=== PATIENT | female | born 1955 | race Caucasian/White ===

== ENCOUNTER 2022-07-11 21:37 | Emergency (ER) | payer MEDICARE, OTHER, SELFPAY ==
[2022-07-11 21:38] VITALS: BP 148/72; PULSE 87; RESP 16; TEMP 36.8; O2SAT 97; BMI 32.3
--- NOTE | 2022-07-11 22:11 | ED.VIS.GI ---
HPI HPI - GI History of Present Illness Chief Complaint: Nausea/Vomiting Informant: patient Abdominal Pain/Flank Pain Onset: Today Context: Sudden Onset Timing: Intermittent Location: RLQ and LLQ Worsened by: Food (Drinking liquids) Relieved by: Nothing Nausea/Vomiting/Emesis GI Symptom: Positive for Nausea and Vomiting Onset: Today Quality: Positive for Nonbilious; Negative for Blood streaks, Coffee ground or Hematemesis Diarrhea/Melena/Hematochezia GI Symptom: Positive for Diarrhea; Negative for Melena or Hematochezia Onset: Today Associated Symptoms Associated Symptoms: Negative for Dysuria, Frequency or Hematuria Narrative Narrative: Patient presents with pain, nausea, vomiting, and diarrhea that began today. Patient states it began rather suddenly. Patient states she took 1 oxycodone tablet and a Tylenol tablet. Patient states that soon after that she started having nausea, vomiting, diarrhea. Patient states she has had lower abdominal cramping with this as well. Patient stated thing. Patient states her pain is cramping and is intermittent. Patient denies any hematemesis or coffee-ground emesis. Patient denies any melena or hematochezia. Patient denies any dysuria or hematuria. Patient had a right total hip replacement 2 days ago. Patient was discharged from the hospital yesterday. Patient states she was walking without difficulty today. Patient denies any fevers. [facility] Medical History (Updated 07/12/22 @ 01:[address] Chencho Escalona, ) Hypertension Home Medications acetaminophen 500 mg tablet 100 mg PO TID 07/12/22 [History Last Taken Unknown] amlodipine 5 mg tablet 5 mg PO DAILY 07/12/22 [History Last Taken Unknown] aspirin 81 mg tablet,delayed release 81 mg PO BID 07/12/22 [History Last Taken Unknown] chlorthalidone 25 mg tablet 25 mg PO DAILY 07/12/22 [History Last Taken Unknown] ciprofloxacin HCl 500 mg tablet 500 mg PO BID #20 TABLETS 07/12/22 [Rx Last Taken Unknown] lisinopril 20 mg tablet 20 mg PO BID 07/12/22 [History Last Taken Unknown] meloxicam 7.5 mg tablet 7.5 mg PO BID 07/12/22 [History Last Taken Unknown] metoprolol succinate 50 mg tablet,extended release 24 hr 50 mg PO BID 07/12/22 [History Last Taken Unknown] metronidazole 500 mg tablet 500 mg PO Q6H #40 tabs 07/12/22 [Rx Last Taken Unknown] oxycodone 5 mg tablet 5 mg PO Q4H PRN PRN Pain 07/12/22 [History Last Taken Unknown] Allergy/AdvReac Type Severity Reaction Status Date / Time No Known Allergies Allergy Verified 07/11/22 21:41 Surgical History Hx of arthroscopic knee surgery Status post total hip replacement, right Social History Smoking Status: Never smoker ROS ROS ED Constitutional Constitutional ED: Denies chills or fever(s) Eyes Eyes: Denies blurry vision or change in vision ENT ENT ED: Denies rhinorrhea or sore throat Cardiovascular Cardiovascular: Denies chest pain or palpitations Respiratory/Chest Respiratory/Chest: Denies cough or dyspnea Gastrointestinal Gastrointestinal: Reports abdominal pain, diarrhea, nausea and vomiting Genitourinary Genitourinary ED: Denies dysuria or hematuria Musculoskeletal Musculoskeletal: Denies back pain or neck pain Integumentary Denies abscess or rash Neurologic Neurologic: Denies headache(s) or weakness Allergic/Immunologic Allergic/Immunologic ED: Denies mouth swelling or urticaria EXAM Physical Exam Const Vital Signs: 07/11/22 21:38 07/12/22 00:04 Temperature 98.2 F Temperature Source Temporal Pulse Rate 87 Respiratory Rate 16 15 Blood Pressure 148/72 H Blood Pressure Mean 97 Pulse Ox 97 Oxygen Delivery Method Room Air Room Air Positive well nourished, well developed and obese General Appearance ED: well developed Nutritional Appearance: obese HEENT Reports moist mucous membranes Neck supple and no JVD Resp normal respiratory effort and clear to auscultation bilaterally Cardio regular rate, regular rhythm and no murmurs GI normal to inspection, nondistended, normoactive bowel sounds Palpation: soft and tender LLQ, RLQ and suprapubic; Negative for guarding or rebound tenderness present Extremity normal to inspection General Extremety ED: Negative for edema or tenderness General Extremity: Negative for edema Neuro oriented x3, CN's II-XII intact bilaterally and no sensory deficits noted Sensorium / Orientation: alert Motor Exam: strength 5/5 throughout Psych mental status grossly normal Skin no rashes or lesions noted MDM MDM MDM Narrative Medical decision making narrative: Patient was given IV fluids and Zofran here. CBC shows a leukocytosis of 19.2. Comprehensive metabolic profile showed a slightly elevated total bilirubin of 1.2. Alkaline phosphatase was slightly elevated at 181. AST and ALT were slightly elevated at 53 and 73. Lipase was normal. Urinalysis does not show any evidence of urinary tract infection or hematuria. Because of the leukocytosis, CT of the abdomen and pelvis was obtained. There is thickening of the chris of the transverse, descending, and sigmoid colon consistent with colitis. This was interpreted by the radiologist and reviewed by myself. Patient was given a dose of Cipro and Flagyl here. Patient was given prescriptions for Cipro and Flagyl. Patient was instructed to follow-up with her primary care physician in 5 to 7 days. Patient understood and was agreeable with the plan. All questions were answered. Lab Data Labs: Laboratory Results - last 24 hr 07/11/22 07/11/22 07/11/22 22:00 22:00 23:57 WBC 19.2 H RBC 4.60 Hgb 13.7 Hct 40.4 MCV 87.8 MCH 29.8 MCHC 33.9 RDW Std Deviation 40.9 RDW Coeff of Sylvain 12.8 Plt Count 283 MPV 11.2 Immature Gran % (Auto) 0.600 Neut % (Auto) 82.2 H Lymph % (Auto) 8.4 L [place] % (Auto) 8.3 Eos % (Auto) 0.2 Baso % (Auto) 0.3 Absolute Neuts (auto) 15.8 H Absolute Lymphs (auto) 1.61 Nucleated RBC % 0 Differential Comment SEE COMMENT Diff Path Review May foll Platelet Estimate ADEQUATE RBC Morphology N CHROM Anisocytosis RARE Sodium 136 Potassium 4.0 Chloride 98 Carbon Dioxide 28.0 Anion Gap 10 BUN 24 H Creatinine 0.96 Estim Creat Clear Calc 52.51 Est GFR (MDRD) Af Amer 74 Est GFR (MDRD) Non-Af 61 BUN/Creatinine Ratio 25.0 H Glucose 180 H Calcium 9.7 Total Bilirubin 1.20 H AST 53 H ALT 73 H Alkaline Phosphatase 181 H Total Protein 7.3 Albumin 3.4 Globulin 3.9 Albumin/Globulin Ratio 0.9 Lipase 65 L Urine Color Yellow Urine Clarity Clear Urine pH 6.5 Ur Specific [place] 1.010 Urine Protein 15 H Urine Glucose (UA) Normal Urine Ketones 50 H Urine Occult Blood Negative Urine Nitrite Negative Urine Bilirubin Negative Urine Urobilinogen 1 H Ur Leukocyte Esterase 100 H Urine RBC 0 SEEN Urine WBC 0-5 SEEN Ur Squamous Epith Cells 0 SEEN Ur Renal Epithelial Cell 0-5 SEEN Urine Bacteria 0 SEEN Urine Mucus 0 SEEN Radiography Diagnostic Testing: Clinical Impression(s) from Imaging Studies Abdomen/Pelvis CT 07/12/22 22:39 IMPRESSION: There is a nonobstructive stone in the left kidney measures 3 mm. There is thickening of the chris of the transverse, descending colon and sigmoid colon consistent with colitis. There is a small, circumscribed, smooth, low attenuation right adrenal mass, consistent with an adrenal adenoma. Normal left adrenal gland. Electronically Signed: Zoila Celaya MD at 0:51 EDT , Discharge Plan Triage Chief Complaint: Nausea/Vomiting ED Provider: Chencho Escalona Dx/Rx/DC Orders Clinical Impression: Colitis, Abdominal pain Instructions: ED Understanding Colitis Prescriptions: New metronidazole [metronidazole] 500 mg tablet 500 mg PO Q6H Qty: 40 0RF ciprofloxacin HCl [ciprofloxacin HCl] 500 mg tablet 500 mg PO BID Qty: 20 0RF No Action metoprolol succinate 50 mg tablet extended release 24 hr 50 mg PO BID lisinopril 20 mg tablet 20 mg PO BID Label Comments: TAKE 1 TABLET BY MOUTH IN THE MORNING and ONE TABLET IN THE EVENING chlorthalidone 25 mg tablet 25 mg PO DAILY Label Comments: TAKE 1 TABLET BY MOUTH DAILY amlodipine 5 mg tablet 5 mg PO DAILY Label Comments: TAKE 1 TABLET BY MOUTH TWICE DAILY acetaminophen 500 mg tablet 100 mg PO TID Label Comments: TAKE 2 TABLETS BY MOUTH THREE TIMES DAILY NEEDED FOR PAIN. max 6 (SIX) tabs (3,000mg/day) oxycodone 5 mg tablet 5 mg PO Q4H PRN PRN (Reason: Pain) Label Comments: TAKE 1 TO 2 TABLETS BY MOUTH every 4 hours NEEDED FOR PAIN meloxicam 7.5 mg tablet 7.5 mg PO BID Label Comments: Take 1 tablet by mouth twice daily. Do not take any other nonsteroidal anti-inflammatories while on meloxicam/Mobic aspirin [Aspir-81] 81 mg Tablet,Delayed Release (Dr/Ec) 81 mg PO BID Primary Care Provider: DAVON MULLEN Referrals: DAVON MULLEN [Other] - 5-7 Days Disposition Disposition: Home, Self Care
[2022-07-11] MEDS: Ondansetron 4 MG/2 ML Vial IV ×2 (22:23→23:17)
[2022-07-11] MEDS: 0.9% Normal Saline 1,000 ML 1000 ML IV (22:23)
[2022-07-11 22:31] LABS: Absolute Lymphocyte Count 1.61 X10^3/uL (0.83-4.51); Absolute Neutrophil Count 15.8 X10^3/uL (2.0-7.7); Basophil# 0.05 X10^3/uL; Basophil% 0.3 % (0-1); Eosinophil# 0.04 X10^3/uL; Eosinophils% 0.2 % (0-5); Hematocrit 40.4 % (37-47); Hemoglobin 13.7 g/dL (12.0-15.0); Lymphocyte # 1.61 X10^3/ul (0.83-4.51); Lymphocyte % 8.4 % (19-41); Mean Corp Hgb Conc 33.9 g/dL (32-36); Mean Corpuscular Hgb 29.8 pg (27.0-32.0); Mean Corpuscular Volume 87.8 fL (81-99); Mean Platelet Vol. 11.2 fl (6.2-12.0); Monocyte% 8.3 % (0-10); NRBC Flagged by Analyzer 0 % (0-5); Neutrophil # 15.82 X10^3/uL (2.7-7.7); Neutrophil % 82.2 % (47-70); POSITIVE DIFFERENTIAL YES; Platelet Count 283 K/mm3 (150-450); RBC Distribution Width CV 12.8 % (11.6-14.6); RBC Distribution Width SD 40.9 fl (35.1-43.9); White Blood Count 19.2 K/mm3 (4.4-11.0)
[2022-07-11 22:32] LABS: Differential Indicated SCAN CRITERIA MET
[2022-07-11 22:47] LABS: ALB/GLOB Ratio 0.9 RATIO (0.9-2.4); AST(SGOT) 53 U/L (15-37); Alanine Aminotransfer ALT/SGPT 73 U/L (13-56); Albumin, Serum 3.4 g/dL (3.2-5.0); Alkaline Phosphatase 181 U/L (45-117); Anion Gap 10 (5-15); BUN 24 mg/dL (7-18); Calcium,Total 9.7 mg/dL (8.5-10.1); Chloride 98 mmol/L (98-107); Creatinine, Serum 0.96 mg/dL (0.55-1.02); EST Glomerular Filtration Rate 61 mL/min (>60); Est Glom Filt Rate - Afr Amer 74 mL/min (>60); Estimated Creatinine Clearance 52.51 ml/min; Globulin 3.9 g/dL (2.2-4.2); Glucose 180 mg/dL (74-106); Lipase 65 U/L (73-393); Protein, Total 7.3 g/dL (6.4-8.2); Sodium Level 136 mmol/L (136-145)
[2022-07-11 22:59] LABS: Anisocytosis RARE; Platelet Estimate ADEQUATE (ADEQ); Red Cell Morphology N CHROM NORMAL (NORM C&C)
[2022-07-12 00:04] VITALS: RESP 15
[2022-07-12 00:08] LABS: Bacteria 0 SEEN /hpf (None Seen); Mucous, Urine 0 SEEN /hpf (<or=2+); Red Blood Cells-Urine 0 SEEN /hpf (0-5); Squamous Epithelial Cells - UA 0 SEEN /hpf (5-10)
[2022-07-12 00:13] LABS: Color, Urine Yellow (Yellow); Glucose, Dipstick Normal (Normal); Ketone-Dipstick 50 mg/dl (Negative); Leukocyte Esterase-Dipstick 100 /ul (Negative); Nitrite-Dipstick Negative (Negative); Occult Blood-Urine Negative /ul (Negative); Protein-Dipstick 15 mg/dl (Negative); Urine Bilirubin Dipstick Negative (Negative); Urine Clarity Clear (Clear); Urine Urobilinogen 1 mg/dl (Normal); Urine pH 6.5 (5.0 - 8.0)
[2022-07-12 00:14] LABS: Renal Epithelial Cells 0-5 SEEN /hpf (0-5); White Blood Cells 0-5 SEEN /hpf (0-5)
[2022-07-12] MEDS: Ciprofloxacin 500 MG Tablet PO (01:26)
[2022-07-12] MEDS: metroNIDAZOLE 500 MG Tablet PO (01:26)
[2022-07-12 01:31] VITALS: BP 138/71; PULSE 80; RESP 18; O2SAT 98
[2022-07-12 15:06] LABS: Pathologist Review Reviewed
--- NOTE | 2022-07-12 22:39 | CT_ITS ---
STUDY: CT ABDOMEN AND PELVIS WITH CONTRAST REASON FOR EXAM: Female, 66 years old. Abdominal pain -- IV PO Contrast RADIATION DOSAGE (If Supplied By Facility): CTDIvol = ( 17.55 ) mGy, DLP = ( 1057.39 ) mGycm TECHNIQUE: Transaxial images were obtained from the dome of the diaphragm to the symphysis pubis without oral contrast. Oral and amp; IV Gastrografin and amp; 100mL Isovue-300 was administered. Sagittal and coronal images were reconstructed. Individualized dose optimization techniques were used for this CT. COMPARISON: None. FINDINGS: The visualized lung bases are unremarkable. The visualized portions of the heart are within normal limits. Normal liver. Normal gallbladder and extrahepatic biliary system. Normal spleen. Normal pancreas. There is a small, circumscribed, smooth, low attenuation right adrenal mass, consistent with an adrenal adenoma. Normal left adrenal gland. There is a nonobstructive stone in the left kidney measures 3 mm. Normal left kidney. There is a small hiatal hernia. Normal small intestine. There is thickening of the chris of the transverse, descending colon and sigmoid colon consistent with colitis. The appendix is visualized and appears normal. Normal abdominal aorta. Normal inferior vena cava. Normal retroperitoneum. Normal urinary bladder. Air bubbles are seen in the subcutaneous soft tissues in the right groin likely due to recent surgery wall. Normal osseous structures. CT/Abdomen/Pelvis WITH Contrast IMPRESSION: There is a nonobstructive stone in the left kidney measures 3 mm. There is thickening of the chris of the transverse, descending colon and sigmoid colon consistent with colitis. There is a small, circumscribed, smooth, low attenuation right adrenal mass, consistent with an adrenal adenoma. Normal left adrenal gland. Electronically Signed: Zoila Celaya MD at 0:51 EDT ,
== END 2022-07-12 01:32 | disposition home or self-care (01) ==
PROVIDERS: Emergency Provider Emergency Medicine; Visit Provider Emergency Medicine
DX: K52.9 Noninfective gastroenteritis and colitis, unspecified (principal); R10.9 Unspecified abdominal pain; I10 Essential (primary) hypertension; R11.2 Nausea with vomiting, unspecified; E66.9 Obesity, unspecified; Z79.899 Other long term (current) drug therapy
CPT/HCPCS: 96361; 96376; 96374; 99284; 74177; 80053; 81001; 83690; 85025; J7030; Q9967; A4216; J2405

== ENCOUNTER 2022-07-12 16:13 | Inpatient (IN) | payer MEDICARE, OTHER, SELFPAY ==
[2022-07-12 16:14] VITALS: BP 161/74; PULSE 117; RESP 14; TEMP 36.4; O2SAT 16; BMI 33.3
--- NOTE | 2022-07-12 16:53 | NURSING ---
NO OLD EKGS
--- NOTE | 2022-07-12 17:05 | NURSING ---
NO OLD EKGS
--- NOTE | 2022-07-12 17:32 | EKG12_ITS ---
Test Reason : PALPS Blood Pressure : / mmHG Vent. Rate : 113 BPM Atrial Rate : 113 BPM P-R Int : 150 ms QRS Dur : 080 ms QT Int : 354 ms P-R-T Axes : 069 023 054 degrees QTc Int : 485 ms Sinus tachycardia Otherwise normal ECG Confirmed by LILY DUQUE, NATHANAEL ([id number]), editor house organ RAFAELA MOREL ([id number]) on 07/16/2022 9:00:12 AM Referred By: LUNA Confirmed By:ARA BAUTISTA MD
--- NOTE | 2022-07-12 17:34 | EDS_ITS ---
HPI History of Present Illness Chief Complaint: Palpitations Detail of Chief Complaint: Palpitations and vomiting Informant: patient Narrative Narrative: Patient had right hip replacement 2 days ago at [facility] with Dr. Leslie. Patient states yesterday afternoon she developed rather abrupt onset abdominal cramping with vomiting and diarrhea. She does have bloody stool. She was seen in the emergency room last evening and diagnosed with colitis. She was discharged with Cipro and Flagyl. Patient states that she continues to have vomiting as well as bloody diarrhea. She states when she is vomiting her heart is racing. She states her resting heart rate is usually in the 60s and today it has been over 100. She has not noted fever or chills. [facility] Medical History Hypertension Home Medications acetaminophen 500 mg tablet 100 mg PO TID 07/12/22 [History Last Taken Unknown] amlodipine 5 mg tablet 5 mg PO DAILY 07/12/22 [History Last Taken Unknown] aspirin 81 mg tablet,delayed release 81 mg PO BID 07/12/22 [History Last Taken Unknown] chlorthalidone 25 mg tablet 25 mg PO DAILY 07/12/22 [History Last Taken Unknown] ciprofloxacin HCl 500 mg tablet 500 mg PO BID #20 TABLETS 07/12/22 [Rx Last Taken Unknown] lisinopril 20 mg tablet 20 mg PO BID 07/12/22 [History Last Taken Unknown] meloxicam 7.5 mg tablet 7.5 mg PO BID 07/12/22 [History Last Taken Unknown] metoprolol succinate 50 mg tablet,extended release 24 hr 50 mg PO BID 07/12/22 [History Last Taken Unknown] metronidazole 500 mg tablet 500 mg PO Q6H #40 tabs 07/12/22 [Rx Last Taken Unknown] oxycodone 5 mg tablet 5 mg PO Q4H PRN PRN Pain 07/12/22 [History Last Taken Unk nown] Allergy/AdvReac Type Severity Reaction Status Date / Time No Known Allergies Allergy Verified 07/11/22 21:41 Surgical History Hx of arthroscopic knee surgery Status post total hip replacement, right Social History Smoking Status: Never smoker ROS ROS ED Constitutional Constitutional ED: Denies chills or fever(s) Eyes Eyes: Denies change in vision or discharge from eye(s) ENT ENT ED: Denies discharge from eye(s), rhinorrhea or sore throat Cardiovascular Cardiovascular: Reports palpitations and racing heartbeat; Denies chest pain Respiratory/Chest Respiratory/Chest: Denies cough or dyspnea Gastrointestinal Gastrointestinal: Reports abdominal pain, diarrhea, nausea and vomiting Genitourinary Genitourinary ED: Denies difficulty urinating or dysuria Musculoskeletal Musculoskeletal: Denies back pain or extremity pain Integumentary Denies Abrasions or rash Neurologic Neurologic: Denies headache(s) or weakness Endocrine Endocrinology: Denies polydipsia or polyuria Allergic/Immunologic Allergic/Immunologic ED: Denies lip swelling or urticaria EXAM Physical Exam Const Vital Signs: 07/12/22 16:14 07/12/22 18:14 Temperature 97.6 F L Temperature Source Temporal Pulse Rate 117 H 111 H Respiratory Rate 14 19 H Blood Pressure 161/74 H Blood Pressure Mean 103 Pulse Ox 16 93 Oxygen Delivery Method Room Air Room Air Positive well nourished and well developed General Appearance ED: well developed HEENT Reports normocephalic, head/scalp atraumatic and dry mucous membranes Mouth ED: Yes dry mucous membranes Mouth: dry mucous membranes Eyes PERRL and EOMs intact bilaterally Neck supple Chest Wall inspection of chest normal and palpation of chest normal Resp normal respiratory effort and clear to auscultation bilaterally Cardio regular rhythm Rate: tachycardic GI non-tender Auscultation: hypoactive bowel sounds Palpation: soft Extremity normal to inspection Neuro oriented x3 and no sensory deficits noted Sensorium / Orientation: alert Motor Exam: strength 5/5 throughout Psych mental status grossly normal Skin no rashes or lesions noted MDM MDM MDM Narrative Medical decision making narrative: Work-up from yesterday is reviewed. CT scan revealed pancolitis. White count was elevated at 19.2. Repeat labs ordered today. Patient given fluids and Zofran. EKG ordered. Lab Data Attestation: I reviewed the patient's lab results. Labs: Laboratory Results - last 24 hr 07/12/22 07/12/22 16:00 16:00 WBC 15.5 H RBC 4.28 Hgb 12.7 Hct 37.4 MCV 87.4 MCH 29.7 MCHC 34.0 RDW Std Deviation 40.8 RDW Coeff of Sylvain 13.0 Plt Count 237 MPV 11.1 Immature Gran % (Auto) 0.500 Neut % (Auto) 78.8 H Lymph % (Auto) 11.1 L [place] % (Auto) 9.1 Eos % (Auto) 0.3 Baso % (Auto) 0.2 Absolute Neuts (auto) 12.2 H Absolute Lymphs (auto) 1.71 Nucleated RBC % 0 Sodium 135 L Potassium 3.2 L Chloride 97 L Carbon Dioxide 28.0 Anion Gap 10 BUN 15 Creatinine 0.85 Estim Creat Clear Calc 59.30 Est GFR (MDRD) Af Amer 85 Est GFR (MDRD) Non-Af 71 BUN/Creatinine Ratio 17.6 Glucose 159 H Calcium 9.2 Total Bilirubin 1.60 H Direct Bilirubin 0.40 H AST 33 ALT 57 H Alkaline Phosphatase 145 H Total Protein 7.0 Albumin 3.2 Globulin 3.8 Treatment and Re-Evaluation Narrative: White count is slightly improved to 15.5 today. Chemistry studies real potassium 3.2. Glucose slightly elevated at 159. Total bili 1.6 and direct 0.4. Patient continued to have vomiting after Zofran. She is given IM Phenergan. Vomiting is well controlled at this time, however patient remains tachycardic around 112. IV potassium has been ordered. Patient has failed outpatient management and continues to have significant vomiting. I will speak with hospitalist regarding observation for hydration and control of vomiting. Discharge Plan Triage Chief Complaint: Palpitations Other Complaint: Nausea/Vomiting ED Provider: Britt Srivastava Dx/Rx/DC Orders Clinical Impression: Colitis, Vomiting, Hypokalemia Prescriptions: No Action metoprolol succinate 50 mg tablet extended release 24 hr 50 mg PO BID lisinopril 20 mg tablet 20 mg PO BID Label Comments: TAKE 1 TABLET BY MOUTH IN THE MORNING and ONE TABLET IN THE EVENING chlorthalidone 25 mg tablet 25 mg PO DAILY Label Comments: TAKE 1 TABLET BY MOUTH DAILY amlodipine 5 mg tablet 5 mg PO DAILY Label Comments: TAKE 1 TABLET BY MOUTH TWICE DAILY acetaminophen 500 mg tablet 100 mg PO TID Label Comments: TAKE 2 TABLETS BY MOUTH THREE TIMES DAILY NEEDED FOR PAIN. max 6 (SIX) tabs (3,000mg/day) oxycodone 5 mg tablet 5 mg PO Q4H PRN PRN (Reason: Pain) Label Comments: TAKE 1 TO 2 TABLETS BY MOUTH every 4 hours NEEDED FOR PAIN meloxicam 7.5 mg tablet 7.5 mg PO BID Label Comments: Take 1 tablet by mouth twice daily. Do not take any other nonsteroidal anti- inflammatories while on meloxicam/Mobic aspirin [Aspir-81] 81 mg Tablet,Delayed Release (Dr/Ec) 81 mg PO BID metronidazole [metronidazole] 500 mg tablet 500 mg PO Q6H Qty: 40 0RF ciprofloxacin HCl [ciprofloxacin HCl] 500 mg tablet 500 mg PO BID Qty: 20 0RF Primary Care Provider: Care Physician,No Primary Referrals: NOT,DEFINED [Non-Staff] - Disposition Disposition: Acute Care Hospital [facility]
[2022-07-12] MEDS: 0.9% Normal Saline 1,000 ML 1000 ML IV (17:44)
[2022-07-12] MEDS: Ondansetron 4 MG/2 ML Vial IV (17:44)
[2022-07-12 17:54] LABS: Absolute Lymphocyte Count 1.71 X10^3/uL (0.83-4.51); Absolute Neutrophil Count 12.2 X10^3/uL (2.0-7.7); Basophil# 0.03 X10^3/uL; Basophil% 0.2 % (0-1); Eosinophil# 0.05 X10^3/uL; Eosinophils% 0.3 % (0-5); Hematocrit 37.4 % (37-47); Hemoglobin 12.7 g/dL (12.0-15.0); Lymphocyte # 1.71 X10^3/ul (0.83-4.51); Lymphocyte % 11.1 % (19-41); Mean Corpuscular Hgb 29.7 pg (27.0-32.0); Mean Corpuscular Volume 87.4 fL (81-99); Mean Platelet Vol. 11.1 fl (6.2-12.0); Monocyte# 1.41 X10^3/uL; Monocyte% 9.1 % (0-10); NRBC Flagged by Analyzer 0 % (0-5); Neutrophil # 12.18 X10^3/uL (2.7-7.7); Neutrophil % 78.8 % (47-70); Platelet Count 237 K/mm3 (150-450); RBC Distribution Width SD 40.8 fl (35.1-43.9); Red Blood Count 4.28 M/mm3 (4.2-5.4); White Blood Count 15.5 K/mm3 (4.4-11.0)
[2022-07-12 18:13] LABS: AST(SGOT) 33 U/L (15-37); Alanine Aminotransfer ALT/SGPT 57 U/L (13-56); Albumin, Serum 3.2 g/dL (3.2-5.0); Alkaline Phosphatase 145 U/L (45-117); Anion Gap 10 (5-15); BUN 15 mg/dL (7-18); BUN/Creat Ratio 17.6 RATIO (10-20); Calcium,Total 9.2 mg/dL (8.5-10.1); Chloride 97 mmol/L (98-107); Creatinine, Serum 0.85 mg/dL (0.55-1.02); EST Glomerular Filtration Rate 71 mL/min (>60); Est Glom Filt Rate - Afr Amer 85 mL/min (>60); Globulin 3.8 g/dL (2.2-4.2); Glucose 159 mg/dL (74-106); Potassium 3.2 mmol/L (3.5-5.1); Sodium Level 135 mmol/L (136-145)
[2022-07-12 18:14] VITALS: PULSE 111; RESP 19; O2SAT 93
[2022-07-12] MEDS: proMETHazine 25 MG/ML Syringe 12.5 MG IM (18:16)
[2022-07-12] MEDS: 0.9% Normal Saline 1,000 ML 150 ML IV (18:50)
[2022-07-12] MEDS: Potassium Chloride 10mEq/100mL 10 MEQ/100 ML IV.SOLN. 100 MEQ IV BOLUS ×4 (19:45→22:41)
--- NOTE | 2022-07-12 20:23 | PCM.HP.STD ---
HPI - General General Date of Admission: 07/12/22 Date of Service: 07/12/22 Chief Complaint: Nausea vomiting and diarrhea HPI Narrative CHRISTINA MACIAS, is a 66 F with a significant history of hypertension; diverticulitis; and who had right total hip replacement with Dr. Leslie (orthopedic surgeon at [facility]) 3 days prior to arrival presenting to the emergency department with persistent nausea vomiting and diarrhea that started a day before this presentation. Patient's reports watery stools about every hour. There is blood in her stools. She report palpitations. She was at [facility] emergency department a day before presentation and was discharged home on Cipro and Flagyl. However she has not been able to keep anything down so she came back to the emergency department. She complains of right hip pain. Because of her abdominal symptoms she stopped taking her prescribed oxycodone for pain and she prefers only ice to her right hip. [facility] Medical History Hypertension Home Medications acetaminophen 500 mg tablet 100 mg PO TID 07/12/22 [History Last Taken Unknown] amlodipine 5 mg tablet 5 mg PO DAILY 07/12/22 [History Last Taken Unknown] aspirin 81 mg tablet,delayed release 81 mg PO BID 07/12/22 [History Last Taken Unknown] chlorthalidone 25 mg tablet 25 mg PO DAILY 07/12/22 [History Last Taken Unknown] ciprofloxacin HCl 500 mg tablet 500 mg PO BID #20 TABLETS 07/12/22 [Rx Last Taken Unknown] lisinopril 20 mg tablet 20 mg PO BID 07/12/22 [History Last Taken Unknown] meloxicam 7.5 mg tablet 7.5 mg PO BID 07/12/22 [History Last Taken Unknown] metoprolol succinate 50 mg tablet,extended release 24 hr 50 mg PO BID 07/12/22 [History Last Taken Unknown] metronidazole 500 mg tablet 500 mg PO Q6H #40 tabs 07/12/22 [Rx Last Taken Unknown] oxycodone 5 mg tablet 5 mg PO Q4H PRN PRN Pain 07/12/22 [History Last Taken Unknown] Allergy/AdvReac Type Severity Reaction Status Date / Time No Known Allergies Allergy Verified 07/11/22 21:41 Family History Other Heart disease Surgical History Hx of arthroscopic knee surgery Status post total hip replacement, right Social History Smoking Status: Former smoker ROS ROS Narrative Pertinent positives and pertinent negatives as noted in HPI. All other systems were reviewed and are negative Vital Signs Vital Signs Vital Signs: 07/12/22 16:14 07/12/22 18:14 Temperature 97.6 F L Temperature Source Temporal Pulse Rate 117 H 111 H Respiratory Rate 14 19 H Blood Pressure 161/74 H Blood Pressure Mean 103 Pulse Ox 16 93 Oxygen Delivery Method Room Air Room Air Weight Weight: 93.5 kg Body Mass Index (BMI) 33.3 Physical Exam Narrative Physical exam: General: Well-nourished, well-developed. Head: Normocephalic, atraumatic, no tenderness Eyes: Vision is grossly intact. EOMI ENT, no trauma, dry mucous membranes, mild whitish substance on tongue, no rhinorrhea Neck: Nontender, full range of motion, no spinal tenderness, deformities, step-off CVS: Regular rate and rhythm. S1-S2 present. No murmur, gallop or rub. Respiratory : clear to auscultation bilaterally, chest wall nontender, no wheezing Abdomen: Soft, nontender, nondistended, normal bowel sounds, no masses : Deferred Back: Nontender, no CVA tenderness. Extremities: Right hip with dry and intact dressing. Tender right hip. Left hip nontender. Skin: Normal color, no trauma, abrasions Neuro: Alert, oriented, cranial nerves II through XII grossly intact. Psychiatry: Normal mood. Normal affect. Not depressed. Not anxious. Results Lab / Micro Data Result Diagrams: 07/12/22 16:00 07/12/22 16:00 Labs: Laboratory Results - last 24 hr 07/12/22 16:00: WBC 15.5 H, RBC 4.28, Hgb 12.7, Hct 37.4, MCV 87.4, MCH 29.7, MCHC 34.0, RDW Std Deviation 40.8, RDW Coeff of Sylvain 13.0, Plt Count 237, MPV 11.1, Immature Gran % (Auto) 0.500, Neut % (Auto) 78.8 H, Lymph % (Auto) 11.1 L, [place] % (Auto) 9.1, Eos % (Auto) 0.3, Baso % (Auto) 0.2, Absolute Neuts (auto) 12.2 H, Absolute Lymphs (auto) 1.71, Nucleated RBC % 0 07/12/22 16:00: Sodium 135 L, Potassium 3.2 L, Chloride 97 L, Carbon Dioxide 28.0, Anion Gap 10, BUN 15, Creatinine 0.85, Estim Creat Clear Calc 59.30, Est GFR (MDRD) Af Amer 85, Est GFR (MDRD) Non-Af 71, BUN/Creatinine Ratio 17.6, Glucose 159 H, Calcium 9.2, Total Bilirubin 1.60 H, Direct Bilirubin 0.40 H, AST 33, ALT 57 H, Alkaline Phosphatase 145 H, Total Protein 7.0, Albumin 3.2, Globulin 3.8 Assessment & Plan Assessment/Plan (1) Colitis: (2) Hypokalemia: (3) Status post total hip replacement, right: PLAN: Plan Hemorrhagic Colitis CT of abdomen and pelvis was visualized and independent interpreted and I agree with radiologist interpretation of pancolitis and nonobstructive stone in the left kidney. Hold home p.o. Cipro and Flagyl. IV Cipro and IV Flagyl ordered. CBC reviewed showed white count of 15.5. Review of records shows that a day before presentation her white count was 19.2 Enteropathogenic panel and EIA Giardia lamblia test ordered. Stool lactoferrin ordered. Trend CBC. Supportive treatment with IV fluids. Shared decision to keep patient n.p.o. except ice. Hypokalemia On presentation potassium was 3.2. IV potassium supplementation ordered the ED. Trend CMP. Check magnesium. Hyponatremia/hypochloremia Sodium presentation was 135. Chloride on presentation 97. Likely secondary to GI loss. Lactated Ringer's ordered. Trend CMP. Hyperbilirubinemia Total bilirubin of 1.6 on presentation. Total Bilirubin a day before presentation 1.2. Likely secondary to acute disease. Trend CMP. Dehydration Patient with dry mucous membrane Gentle IV hydration. Trend BMP. Palpitations Telemetry showed sinus tachycardia. Check TSH. Hypertension Blood pressure is not within goal Home p.o. hypertensive medication held while NPO. Vasotec IV ordered. Trend blood pressure and adjust blood pressure medications. Status post total hip replacement Stable. Activity as tolerated. Ice to right hip as needed. DVT prophylaxis PATTIE barron continued. SCDs ordered Charges/Coding Visit Charges OBSV E&M: 49665 Initial observation care L3
[2022-07-12 20:24] VITALS: BP 157/68; PULSE 108; RESP 16; O2SAT 97
[2022-07-12 21:09] VITALS: BP 157/68; PULSE 108; RESP 16; TEMP 36.4; O2SAT 97
[2022-07-12 22:03] VITALS: PULSE 107
[2022-07-12 22:19] VITALS: BP 146/75; PULSE 109; RESP 20; TEMP 36.8; O2SAT 94
[2022-07-12] MEDS: Lactated Ringers 1,000 ML 100 ML IV (22:22)
[2022-07-12] MEDS: Enalaprilat 1.25 MG/ML Vial 0.625 MG IV (23:21)
[2022-07-12] MEDS: metroNIDAZOLE 500 MG/100 ML BAG 100 MG IV (23:25)
[2022-07-13] VITALS (10 sets, daily range): BP systolic 133–160; BP diastolic 65–69; PULSE 95–128; RESP 16–18; TEMP 36.1–37.3; O2SAT 95–97
[2022-07-13] MEDS: Ciprofloxacin 400 MG/200 ML BAG 200 MG IV ×3 (00:17→21:19)
[2022-07-13] MEDS: Ondansetron 4 MG/2 ML Vial IV ×2 (04:46→22:03)
[2022-07-13] MEDS: 0.9% Saline Lock 10 ML Syringe IV ×4 (04:48→22:23)
[2022-07-13] MEDS: Enalaprilat 1.25 MG/ML Vial 0.625 MG IV ×4 (05:31→23:27)
[2022-07-13] MEDS: metroNIDAZOLE 500 MG/100 ML BAG 100 MG IV ×3 (05:31→22:23)
[2022-07-13 06:58] LABS: Absolute Neutrophil Count 13.4 X10^3/uL (2.0-7.7); Basophil# 0.04 X10^3/uL; Basophil% 0.2 % (0-1); Eosinophil# 0.08 X10^3/uL; Eosinophils% 0.5 % (0-5); Hematocrit 35.3 % (37-47); Hemoglobin 11.4 g/dL (12.0-15.0); Lymphocyte % 9.5 % (19-41); Mean Corp Hgb Conc 32.3 g/dL (32-36); Mean Corpuscular Hgb 29.4 pg (27.0-32.0); Mean Platelet Vol. 10.8 fl (6.2-12.0); Monocyte% 9.5 % (0-10); NRBC Flagged by Analyzer 0 % (0-5); Neutrophil # 13.35 X10^3/uL (2.7-7.7); Neutrophil % 79.7 % (47-70); POSITIVE DIFFERENTIAL YES; Platelet Count 229 K/mm3 (150-450); RBC Distribution Width CV 12.9 % (11.6-14.6); RBC Distribution Width SD 42.2 fl (35.1-43.9); Red Blood Count 3.88 M/mm3 (4.2-5.4); White Blood Count 16.8 K/mm3 (4.4-11.0)
[2022-07-13 07:00] LABS: Differential Indicated SCAN CRITERIA MET
[2022-07-13 07:25] LABS: Differential Comment SCANNED
[2022-07-13 07:45] LABS: ALB/GLOB Ratio 0.8 RATIO (0.9-2.4); AST(SGOT) 25 U/L (15-37); Alanine Aminotransfer ALT/SGPT 42 U/L (13-56); Albumin, Serum 2.6 g/dL (3.2-5.0); Alkaline Phosphatase 109 U/L (45-117); Anion Gap 7 (5-15); BUN 11 mg/dL (7-18); BUN/Creat Ratio 18.3 RATIO (10-20); Calcium,Total 8.1 mg/dL (8.5-10.1); Chloride 100 mmol/L (98-107); EST Glomerular Filtration Rate 106 mL/min (>60); Est Glom Filt Rate - Afr Amer 128 mL/min (>60); Estimated Creatinine Clearance 50.41 ml/min; Globulin 3.4 g/dL (2.2-4.2); Glucose 145 mg/dL (74-106); Magnesium 1.8 mg/dL (1.6-2.6); Potassium 3.8 mmol/L (3.5-5.1); Sodium Level 135 mmol/L (136-145); Thyroid Stim Hormone (TSH) 0.92 uIU/mL (0.358-3.74)
--- NOTE | 2022-07-13 10:11 | PN.HOSP_ITS ---
Subjective Subjective Follow-up on acute gastroenteritis/colitis: Patient was seen and examined. Complains of 3 large bowel movements. Denied any fever or chills. Denied any abdominal discomfort. She has had not had any nausea or vomiting since being admitted. Objective Data Objective Data Vital Signs: Vital Signs Temp Pulse Resp BP Pulse Ox O2 Del Method 99.2 F H 104 H 16 160/66 H 95 Room Air 07/13/22 04:30 07/13/22 06:53 07/13/22 04:30 07/13/22 04:30 07/13/22 07:43 07/13/22 08:30 Oxygen Delivery Method Room Air Weight: 93.5 kg Body Mass Index (BMI) 33.3 Intake & Output: Intake and Output for Last 24 Hours 07/11/22 07/12/22 07/13/22 23:59 23:59 23:59 Intake Total 1800 / 1800 500 / 500 Balance 1800 / 1800 500 / 500 Lab / Micro Data Result Diagrams: 07/13/22 06:15 07/13/22 06:15 Labs: Laboratory Results - last 24 hr 07/12/22 16:00: WBC 15.5 H, RBC 4.28, Hgb 12.7, Hct 37.4, MCV 87.4, MCH 29.7, MC HC 34.0, RDW Std Deviation 40.8, RDW Coeff of Sylvain 13.0, Plt Count 237, MPV 11.1, Immature Gran % (Auto) 0.500, Neut % (Auto) 78.8 H, Lymph % (Auto) 11.1 L, [place] % (Auto) 9.1, Eos % (Auto) 0.3, Baso % (Auto) 0.2, Absolute Neuts (auto) 12.2 H, Absolute Lymphs (auto) 1.71, Nucleated RBC % 0 07/12/22 16:00: Sodium 135 L, Potassium 3.2 L, Chloride 97 L, Carbon Dioxide 28.0, Anion Gap 10, BUN 15, Creatinine 0.85, Estim Creat Clear Calc 59.30, Est GFR (MDRD) Af Amer 85, Est GFR (MDRD) Non-Af 71, BUN/Creatinine Ratio 17.6, Glucose 159 H, Calcium 9.2, Total Bilirubin 1.60 H, Direct Bilirubin 0.40 H, AST 33, ALT 57 H, Alkaline Phosphatase 145 H, Total Protein 7.0, Albumin 3.2, Globulin 3.8 07/13/22 06:15: WBC 16.8 H, RBC 3.88 L, Hgb 11.4 L, Hct 35.3 L, MCV 91.0, MCH 29.4, MCHC 32.3, RDW Std Deviation 42.2, RDW Coeff of Sylvain 12.9, Plt Count 229, MPV 10.8, Immature Gran % (Auto) 0.600, Neut % (Auto) 79.7 H, Lymph % (Auto) 9.5 L, [place] % (Auto) 9.5, Eos % (Auto) 0.5, Baso % (Auto) 0.2, Absolute Neuts (auto) 13.4 H, Absolute Lymphs (auto) 1.60, Nucleated RBC % 0, Differential Comment SCANNED, Diff Path Review March07/13/22 06:15: Sodium 135 L, Potassium 3.8, Chloride 100, Carbon Dioxide 28.0, Anion Gap 7, BUN 11, Creatinine 0.60, Estim Creat Clear Calc 50.41, Est GFR (MDRD) Af Amer 128, Est GFR (MDRD) Non-Af 106, BUN/Creatinine Ratio 18.3, Glucose 145 H, Calcium 8.1 L, Magnesium 1.8, Total Bilirubin 1.10 H, AST 25, ALT 42, Alkaline Phosphatase 109, Total Protein 6.0 L, Albumin 2.6 L, Globulin 3.4, Albumin/Globulin Ratio 0.8 L, TSH 0.92 Micro: Microbiology 07/12/22 03:15 Stool Stool Lactoferrin - Final Physical Exam Narrative Physical exam: General: Alert, Oriented x3, Cooperative, No apparent distress HEENT: Atraumatic Oral: Moist Mucosa Neck: Supple Lungs: Clear to auscultation Cardiovascular: HS I+II, regular, no murmurs Abdomen: Bowel Sounds Present, Soft, Non Tender Extremities: No edema Skin: No rashes, No breakdown Neurological: Grossly intact Psych/Mental Status: Appropriate Assessment & Plan Assessment/Plan (1) Colitis: PLAN: Plan 1. Acute gastroenteritis/hemorrhagic colitis, unclear etiology for now Need to rule out infectious etiology. Other differentials could be inflammatory bowel disease CT of the abdomen and pelvis shows pancolitis. Fecal lactoferrin is positive Follow-up on stool for C. difficile, enteric panel Continue on IV ceftriaxone and Flagyl Consult GI if infectious etiology is ruled out 2. Hypokalemia, potassium 3.2, resolved, recheck in a.m. 3. Hypomagnesemia, replace, recheck in a.m. 4. Hypertension, controlled, continue on IV enalapril 5. Status post recent total hip replacement 6. DVT prophylaxis?SCDs Charges/Coding Visit Charges Inpatient E&M: 35893 Subs Hosp L2
[2022-07-13] MEDS: Lactated Ringers 1,000 ML 125 ML IV ×2 (11:32→19:40)
--- NOTE | 2022-07-13 13:06 | CASEMGMT ---
Social Work As per admitting wool spotter, pt has LW/POA forms but not able to bring in at this time. As per pt, Zion Carcamo is pt's medical POA. FRANCISCO Vanessa
[2022-07-13] MEDS: Loperamide 2 MG Capsule PO ×3 (13:42→19:49)
--- NOTE | 2022-07-13 16:20 | CASEMGMT ---
JAYDEN LOUISE Face to Face with patient for initial transition planning/care coordination assessment. RN CM introduced self and role at [facility]. Patient lying in bed, alert and oriented, at bedside. Patient willing to participate in assessment and is able to answer all questions appropriately. Care providers, pharmacy, and demographics verified. Patient wishes to discharge home with outpatient therapy at [facility] that was previously setup. Patient states she has no further needs or concerns at this time. CM to follow for discharge planning needs that may arise. PCP: Eliza Olivera Specialists: amirah Leslie Pharmacy: [facility] Pres[facility] Benefit: yes Living Will/HPOA: none LNOK: Living Arrangements: Patient lives with in a first floor apartment with no steps to enter. Patient states she is independent at home. Transportation: DME/HHC: Patient has raised toilet, cane, walker, and grab bars at home. Patient is setup with [facility] for outpatient therapy with appt setup for Friday. Disposition Plan: Patient to discharge home with resumption of outpatient therapy, family support, and follow-up plans in place. My SULLIVAN, RN, CM
[2022-07-14] MEDS: Lactated Ringers 1,000 ML 125 ML IV ×2 (03:30→11:49)
[2022-07-14 03:31] VITALS: BP 157/75; PULSE 99; RESP 18; TEMP 36.4; O2SAT 99
[2022-07-14 03:45] VITALS: PULSE 113
[2022-07-14] MEDS: 0.9% Saline Lock 10 ML Syringe IV ×2 (05:00→10:25)
[2022-07-14] MEDS: metroNIDAZOLE 500 MG/100 ML BAG 100 MG IV (05:00)
[2022-07-14] MEDS: Enalaprilat 1.25 MG/ML Vial 0.625 MG IV (05:01)
[2022-07-14] MEDS: Loperamide 2 MG Capsule PO ×2 (05:28→11:49)
[2022-07-14 07:00] VITALS: PULSE 98
[2022-07-14 07:05] VITALS: O2SAT 98
[2022-07-14 07:05] LABS: Absolute Lymphocyte Count 1.56 X10^3/uL (0.83-4.51); Absolute Neutrophil Count 10.1 X10^3/uL (2.0-7.7); Basophil# 0.05 X10^3/uL; Basophil% 0.4 % (0-1); Eosinophil# 0.19 X10^3/uL; Eosinophils% 1.4 % (0-5); Hematocrit 34.2 % (37-47); Hemoglobin 11.3 g/dL (12.0-15.0); Lymphocyte # 1.56 X10^3/ul (0.83-4.51); Lymphocyte % 11.9 % (19-41); Mean Corpuscular Hgb 29.8 pg (27.0-32.0); Mean Corpuscular Volume 90.2 fL (81-99); Mean Platelet Vol. 10.5 fl (6.2-12.0); Monocyte# 1.16 X10^3/uL; Monocyte% 8.8 % (0-10); NRBC Flagged by Analyzer 0 % (0-5); Neutrophil # 10.08 X10^3/uL (2.7-7.7); Neutrophil % 76.7 % (47-70); Platelet Count 239 K/mm3 (150-450); RBC Distribution Width CV 12.8 % (11.6-14.6); RBC Distribution Width SD 42.1 fl (35.1-43.9); Red Blood Count 3.79 M/mm3 (4.2-5.4); White Blood Count 13.1 K/mm3 (4.4-11.0)
[2022-07-14 07:40] LABS: ALB/GLOB Ratio 0.7 RATIO (0.9-2.4); AST(SGOT) 25 U/L (15-37); Alanine Aminotransfer ALT/SGPT 41 U/L (13-56); Albumin, Serum 2.6 g/dL (3.2-5.0); Alkaline Phosphatase 101 U/L (45-117); Anion Gap 9 (5-15); BUN 11 mg/dL (7-18); BUN/Creat Ratio 18.6 RATIO (10-20); Calcium,Total 8.3 mg/dL (8.5-10.1); Chloride 98 mmol/L (98-107); Creatinine, Serum 0.59 mg/dL (0.55-1.02); EST Glomerular Filtration Rate 108 mL/min (>60); Est Glom Filt Rate - Afr Amer 130 mL/min (>60); Estimated Creatinine Clearance 50.41 ml/min; Globulin 3.5 g/dL (2.2-4.2); Glucose 139 mg/dL (74-106); Potassium 3.5 mmol/L (3.5-5.1); Protein, Total 6.1 g/dL (6.4-8.2); Sodium Level 135 mmol/L (136-145)
[2022-07-14 10:06] VITALS: BP 148/74; PULSE 96; RESP 16; TEMP 36.6; O2SAT 98
[2022-07-14 10:25] VITALS: BP 148/74; PULSE 96
[2022-07-14] MEDS: amLODIPine 5 MG Tablet PO (10:25)
[2022-07-14] MEDS: Ciprofloxacin 400 MG/200 ML BAG 200 MG IV (10:25)
[2022-07-14] MEDS: Metoprolol(XL)Succ 50 MG Tablet PO (10:25)
--- NOTE | 2022-07-14 11:53 | DS.PCM_ITS ---
Providers Date of Admission: 07/13/22 Date of Discharge: 07/14/22 Primary Care Physician: No Primary Care Phys Reason For Visit: COLITIS Diagnosis Discharge Diagnosis (1) Colitis: Status: Acute Code(s): K52.9 - Noninfective gastroenteritis and colitis, unspecified Plan 1. Acute colitis 2. Hypokalemia 3. Hypomagnesemia 4. Hypertension 5. Status post recent total hip replacement Medications at Discharge Home Medications amlodipine 5 mg tablet 5 mg PO DAILY 07/12/22 aspirin 81 mg tablet,delayed release 81 mg PO BID 07/12/22 chlorthalidone 25 mg tablet 25 mg PO DAILY 07/12/22 ciprofloxacin HCl 500 mg tablet 500 mg PO BID #20 TABLETS 07/12/22 lisinopril 20 mg tablet 20 mg PO BID 07/12/22 metoprolol succinate 50 mg tablet,extended release 24 hr 50 mg PO BID 07/12/22 metronidazole 500 mg tablet 500 mg PO Q6H #40 tabs 07/12/22 oxycodone 5 mg tablet 5 mg PO Q4H PRN PRN Pain 07/12/22 famotidine 40 mg tablet 40 mg PO DAILY 14 days #14 tabs 07/14/22 mesalamine 1.2 gram tablet,delayed release 1.2 g PO BID 4 weeks #56 tabs 07/14/22 Hospital Course Operations None Procedures None Summary of Care Provided Minutes Spent on Discharge: 35 Hospital Course: 66-year-old female with past medical history of ulcerative colitis, in remission, hypertension who recently had right total hip replacement done by Dr. Leslie in [facility] 3 days prior to admission. Patient was discharged home on meloxicam and aspirin twice daily. Patient stated that she started having persistent nausea vomiting and diarrhea that started the day before admission. She started having watery stools which eventually turned to hematochezia. She was seen at the emergency room a day prior to admission and discharged home on Cipro and Flagyl. She however presented back as she was unable to keep any medication down. In the emergency room, CT abdomen pelvis was significant for colitis of the transverse colon, descending colon and sigmoid colon. Patient was admitted to the progressive care unit, monitored symptomatically on IV fluids, stool for C. difficile, enteric panel were negative. Stool lactoferrin was positive. She was continued IV Cipro and Flagyl. Patient continued to improve, had diarrhea improved with Imodium. Patient was discharged to complete 7 days of Cipro and Flagyl. She was also discharged on mesalamine 1.2 g twice daily. She was strongly asked to follow-up with her primary engraver optical frames within a week, as well as with her primary care doctor within a week. At time of discharge, patient felt much improved. Denied any new complaints. Physical Exam Narrative Physical exam: General: Alert, Oriented x3, Cooperative, No apparent distress HEENT: Atraumatic Oral: Moist Mucosa Neck: Supple Lungs: Clear to auscultation Cardiovascular: HS I+II, regular, no murmurs Abdomen: Bowel Sounds Present, Soft, Non Tender Extremities: No edema Skin: No rashes, No breakdown Neurological: Grossly intact Psych/Mental Status: Appropriate Weight / BMI Weight Weight: 93.5 kg Body Mass Index (BMI) 33.3 ABG / Lab / Microbiology Data Result Diagrams: 07/14/22 06:00 07/14/22 06:00 Laboratory: Laboratory Results - last 24 hr 07/14/22 06:00: WBC 13.1 H, RBC 3.79 L, Hgb 11.3 L, Hct 34.2 L, MCV 90.2, MCH 29.8, MCHC 33.0, RDW Std Deviation 42.1, RDW Coeff of Sylvain 12.8, Plt Count 239, MPV 10.5, Immature Gran % (Auto) 0.800, Neut % (Auto) 76.7 H, Lymph % (Auto) 11.9 L, [place] % (Auto) 8.8, Eos % (Auto) 1.4, Baso % (Auto) 0.4, Absolute Neuts (auto) 10.1 H, Absolute Lymphs (auto) 1.56, Nucleated RBC % 0 07/14/22 06:00: Sodium 135 L, Potassium 3.5, Chloride 98, Carbon Dioxide 28.0, Anion Gap 9, BUN 11, Creatinine 0.59, Estim Creat Clear Calc 50.41, Est GFR (MDRD) Af Amer 130, Est GFR (MDRD) Non-Af 108, BUN/Creatinine Ratio 18.6, Glucose 139 H, Calcium 8.3 L, Total Bilirubin 1.00, AST 25, ALT 41, Alkaline Phosphatase 101, Total Protein 6.1 L, Albumin 2.6 L, Globulin 3.5, Albumin/Globulin Ratio 0.7 L Microbiology: Microbiology 07/13/22 12:25 Stool C. difficile DNA Amplification - Final 07/12/22 03:15 Stool Stool Lactoferrin - Final 07/12/22 03:15 Stool Enteric Bacteriology - Final D/C Instructions Discharge Diet: Low fat / Low cholesterol and 2000 mg Sodium Diet Meaningful Use Info Meaningful Use Diagnoses (Choose all that apply): None applicable Discharge Plan Admission Admit Date/Time: 07/13/22 14:52 Primary Reason for Your Visit: Acute colitis Attending Provider: Sadia Carpenter Primary Care Provider: Care Physician,Lyssa Primary Consulting Providers: John Car Instructions Additional Instructions / Restrictions: Take note of changes to your medications. Continue to keep yourself hydrated Continue on ciprofloxacin and Flagyl for a total of 7 days (last dose 07/19/22 pm) Follow-up with your primary Gastroenterology within 1-2 week. Follow-up with your PCP within 1 week for repeat blood work. Discharge Orders/Prescriptions Prescriptions: New mesalamine 1.2 gram tablet,delayed release (DR/EC) 1.2 g PO BID 28 Days Qty: 56 0RF famotidine 40 mg tablet 40 mg PO DAILY 14 Days Qty: 14 0RF Continued metoprolol succinate 50 mg tablet extended release 24 hr 50 mg PO BID lisinopril 20 mg tablet 20 mg PO BID Label Comments: TAKE 1 TABLET BY MOUTH IN THE MORNING and ONE TABLET IN THE EVENING chlorthalidone 25 mg tablet 25 mg PO DAILY Label Comments: TAKE 1 TABLET BY MOUTH DAILY amlodipine 5 mg tablet 5 mg PO DAILY Label Comments: TAKE 1 TABLET BY MOUTH TWICE DAILY oxycodone 5 mg tablet 5 mg PO Q4H PRN PRN (Reason: Pain) Label Comments: TAKE 1 TO 2 TABLETS BY MOUTH every 4 hours NEEDED FOR PAIN aspirin 81 mg Tablet,Delayed Release (Dr/Ec) 81 mg PO BID metronidazole 500 mg tablet 500 mg PO Q6H Qty: 40 0RF ciprofloxacin HCl 500 mg tablet 500 mg PO BID Qty: 20 0RF Discontinued acetaminophen 500 mg tablet 100 mg PO TID Label Comments: TAKE 2 TABLETS BY MOUTH THREE TIMES DAILY NEEDED FOR PAIN. max 6 (SIX) tabs (3,000mg/day) meloxicam 7.5 mg tablet 7.5 mg PO BID Label Comments: Take 1 tablet by mouth twice daily. Do not take any other nonsteroidal anti- inflammatories while on meloxicam/Mobic Referrals / Follow Up: Care Physician,No Primary [Primary Care Provider] - NOT,DEFINED [Non-Staff] - Disposition Disposition (needs filled in before D/C Order can be placed): Home, Self Care Charges/Coding Visit Charges Inpatient E&M: 89679 Disch Hosp
[2022-07-16 13:42] LABS: Pathologist Review Reviewed
[2022-07-18 16:36] LABS: Giardia Lamblia, Stool EIA Negative (Negative)
== END 2022-07-14 14:05 | disposition home or self-care (01) | DRG 392 ==
LOC: ED 20:15 → PCU 21:23
PROVIDERS: Admitting Provider Hospitalist; Emergency Provider Emergency Medicine; Visit Provider Internal Medicine
DX: K52.9 Noninfective gastroenteritis and colitis, unspecified (principal); E87.1 Hypo-osmolality and hyponatremia; E87.8 Other disorders of electrolyte and fluid balance, not elsewhere classified; E87.6 Hypokalemia; I10 Essential (primary) hypertension; E86.0 Dehydration; E83.42 Hypomagnesemia; R00.2 Palpitations; Z79.82 Long term (current) use of aspirin; Z79.1 Long term (current) use of non-steroidal anti-inflammatories (NSAID); Z79.899 Other long term (current) drug therapy; Z96.641 Presence of right artificial hip joint; Z87.891 Personal history of nicotine dependence
CPT/HCPCS: 36415; 74177; 80048; 80053; 80076; 81001; 83630; 83690; 83735; 84443; 85025; 87329; 87493; 87506; 93005; 96361; 96374; 96376; 99284; 99285; J7030; J7120; Q9967; A4216; J0744; J2405

== ENCOUNTER → 2022-09-30 | Outpatient (CLI) | payer MEDICARE, OTHER, SELFPAY ==
[2022-09-30 08:45] LABS: Absolute Neutrophil Count 5.9 X10^3/uL (2.0-7.7); Basophil# 0.05 X10^3/uL; Basophil% 0.5 % (0-1); Eosinophil# 0.26 X10^3/uL; Eosinophils% 2.8 % (0-5); Hematocrit 44.5 % (37-47); Hemoglobin 14.7 g/dL (12.0-15.0); Lymphocyte % 25.4 % (19-41); Mean Corpuscular Hgb 28.3 pg (27.0-32.0); Mean Corpuscular Volume 85.7 fL (81-99); Mean Platelet Vol. 10.4 fl (6.2-12.0); Monocyte# 0.83 X10^3/uL; Monocyte% 8.8 % (0-10); NRBC Flagged by Analyzer 0 % (0-5); Neutrophil # 5.88 X10^3/uL (2.7-7.7); Neutrophil % 62.2 % (47-70); Platelet Count 292 K/mm3 (150-450); RBC Distribution Width CV 12.9 % (11.6-14.6); RBC Distribution Width SD 39.6 fl (35.1-43.9); Red Blood Count 5.19 M/mm3 (4.2-5.4); White Blood Count 9.5 K/mm3 (4.4-11.0)
[2022-09-30 09:44] LABS: ALB/GLOB Ratio 1.1 RATIO (0.9-2.4); AST(SGOT) 33 U/L (15-37); Alanine Aminotransfer ALT/SGPT 60 U/L (13-56); Albumin, Serum 3.9 g/dL (3.2-5.0); Alkaline Phosphatase 109 U/L (45-117); Anion Gap 10 (5-15); BUN 23 mg/dL (7-18); BUN/Creat Ratio 26.8 RATIO (10-20); Calcium,Total 9.1 mg/dL (8.5-10.1); Chloride 97 mmol/L (98-107); Cholesterol 197 mg/dL (200); Creatinine, Serum 0.86 mg/dL (0.55-1.02); EST Glomerular Filtration Rate 70 mL/min (>60); Est Glom Filt Rate - Afr Amer 84 mL/min (>60); Globulin 3.6 g/dL (2.2-4.2); Glucose 126 mg/dL (74-106); High Density Lipoprotein 45 mg/dL; Potassium 3.9 mmol/L (3.5-5.1); Protein, Total 7.5 g/dL (6.4-8.2); Sodium Level 135 mmol/L (136-145); Thyroid Stim Hormone (TSH) 2.63 uIU/mL (0.358-3.74); Triglycerides 264 mg/dL; Very Low Density Lipoprotein 53 mg/dL (5-40)
[2022-09-30 09:46] LABS: Hemoglobin A1c 6.4 % (3.8-5.6)
[2022-09-30 09:48] LABS: Vitamin D,25 Hydroxy 48.6 ng/mL
== END | disposition home or self-care (01) ==
LOC: LAB 08:17
PROVIDERS: Referring Provider Internal Medicine; Visit Provider Internal Medicine
DX: I10 Essential (primary) hypertension (principal); K21.9 Gastro-esophageal reflux disease without esophagitis; K52.9 Noninfective gastroenteritis and colitis, unspecified; K57.90 Diverticulosis of intestine, part unspecified, without perforation or abscess without bleeding; Z96.641 Presence of right artificial hip joint; E55.9 Vitamin D deficiency, unspecified; R73.09 Other abnormal glucose
CPT/HCPCS: 36415; 80053; 80061; 82306; 83036; 84443; 85025

== ENCOUNTER → 2023-03-28 | Outpatient (CLI) | payer MEDICARE, OTHER, SELFPAY ==
[2023-03-28 08:27] LABS: Absolute Lymphocyte Count 2.06 X10^3/uL (0.83-4.51); Absolute Neutrophil Count 4.1 X10^3/uL (2.0-7.7); Basophil# 0.07 X10^3/uL; Eosinophil# 0.17 X10^3/uL; Eosinophils% 2.4 % (0-5); Hematocrit 47.9 % (37-47); Hemoglobin 15.6 g/dL (12.0-15.0); Lymphocyte # 2.06 X10^3/ul (0.83-4.51); Lymphocyte % 29.1 % (19-41); Mean Corp Hgb Conc 32.6 g/dL (32-36); Mean Corpuscular Hgb 28.8 pg (27.0-32.0); Mean Corpuscular Volume 88.5 fL (81-99); Mean Platelet Vol. 11.4 fl (6.2-12.0); Monocyte% 9.9 % (0-10); NRBC Flagged by Analyzer 0 % (0-5); Neutrophil # 4.05 X10^3/uL (2.7-7.7); Neutrophil % 57.3 % (47-70); Platelet Count 267 K/mm3 (150-450); RBC Distribution Width CV 12.8 % (11.6-14.6); RBC Distribution Width SD 41.3 fl (35.1-43.9); Red Blood Count 5.41 M/mm3 (4.2-5.4); White Blood Count 7.1 K/mm3 (4.4-11.0)
[2023-03-28 08:56] LABS: Vitamin D,25 Hydroxy 62.4 ng/mL
[2023-03-28 09:01] LABS: ALB/GLOB Ratio 1.2 RATIO (0.9-2.4); AST(SGOT) 29 U/L (15-37); Alanine Aminotransfer ALT/SGPT 53 U/L (13-56); Albumin, Serum 4.3 g/dL (3.2-5.0); Alkaline Phosphatase 97 U/L (45-117); Anion Gap 9 (5-15); BUN 26 mg/dL (7-18); BUN/Creat Ratio 27.8 RATIO (10-20); Calcium,Total 10.2 mg/dL (8.5-10.1); Chloride 97 mmol/L (98-107); Cholesterol 180 mg/dL (200); Creatinine, Serum 0.93 mg/dL (0.55-1.02); EST Glomerular Filtration Rate 63 mL/min (>60); Est Glom Filt Rate - Afr Amer 76 mL/min (>60); Globulin 3.6 g/dL (2.2-4.2); Glucose 121 mg/dL (74-106); High Density Lipoprotein 47 mg/dL; Magnesium 1.9 mg/dL (1.6-2.6); Potassium 3.6 mmol/L (3.5-5.1); Protein, Total 7.9 g/dL (6.4-8.2); Sodium Level 135 mmol/L (136-145); Thyroid Stim Hormone (TSH) 2.68 uIU/mL (0.358-3.74); Triglycerides 135 mg/dL; Very Low Density Lipoprotein 27 mg/dL (5-40)
== END | disposition home or self-care (01) ==
LOC: LAB 07:48
PROVIDERS: PCP Internal Medicine; Referring Provider Internal Medicine; Visit Provider Internal Medicine
DX: I10 Essential (primary) hypertension (principal); K21.9 Gastro-esophageal reflux disease without esophagitis; R73.9 Hyperglycemia, unspecified; E55.9 Vitamin D deficiency, unspecified; Z13.220 Encounter for screening for lipoid disorders
CPT/HCPCS: 36415; 80053; 80061; 82306; 83036; 83735; 84443; 85025

== ENCOUNTER → 2023-05-07 | Outpatient (CLI) | payer MEDICARE, OTHER, SELFPAY ==
[2023-05-07 11:11] LABS: Anion Gap 7 (5-15); BUN 14 mg/dL (7-18); Calcium,Total 9.9 mg/dL (8.5-10.1); Chloride 95 mmol/L (98-107); Creatinine, Serum 0.93 mg/dL (0.55-1.02); EST Glomerular Filtration Rate 63 mL/min (>60); Est Glom Filt Rate - Afr Amer 77 mL/min (>60); Glucose 114 mg/dL (74-106); Potassium 3.1 mmol/L (3.5-5.1); Sodium Level 131 mmol/L (136-145)
== END | disposition home or self-care (01) ==
LOC: LAB 09:50
PROVIDERS: PCP Internal Medicine; Referring Provider Internal Medicine; Visit Provider Internal Medicine
DX: I10 Essential (primary) hypertension (principal); E83.52 Hypercalcemia
CPT/HCPCS: 36415; 80048

== ENCOUNTER → 2023-09-04 | Outpatient (CLI) | payer MEDICARE, OTHER, SELFPAY ==
[2023-09-04 09:35] LABS: Absolute Lymphocyte Count 1.69 X10^3/uL (0.83-4.51); Absolute Neutrophil Count 3.9 X10^3/uL (2.0-7.7); Basophil# 0.04 X10^3/uL; Basophil% 0.6 % (0-1); Eosinophil# 0.15 X10^3/uL; Eosinophils% 2.3 % (0-5); Hematocrit 45.7 % (37-47); Hemoglobin 15.1 g/dL (12.0-15.0); Lymphocyte # 1.69 X10^3/ul (0.83-4.51); Lymphocyte % 26.4 % (19-41); Mean Corpuscular Hgb 28.8 pg (27.0-32.0); Mean Corpuscular Volume 87.2 fL (81-99); Mean Platelet Vol. 11.2 fl (6.2-12.0); Monocyte# 0.66 X10^3/uL; Monocyte% 10.3 % (0-10); NRBC Flagged by Analyzer 0 % (0-5); Neutrophil # 3.86 X10^3/uL (2.7-7.7); Neutrophil % 60.2 % (47-70); Platelet Count 234 K/mm3 (150-450); RBC Distribution Width CV 13.4 % (11.6-14.6); RBC Distribution Width SD 42.7 fl (35.1-43.9); Red Blood Count 5.24 M/mm3 (4.2-5.4); White Blood Count 6.4 K/mm3 (4.4-11.0)
[2023-09-04 10:07] LABS: Hemoglobin A1c 5.3 % (3.8-5.6)
[2023-09-04 10:14] LABS: ALB/GLOB Ratio 1.2 RATIO (0.9-2.4); AST(SGOT) 25 U/L (15-37); Alanine Aminotransfer ALT/SGPT 28 U/L (13-56); Albumin, Serum 3.8 g/dL (3.2-5.0); Alkaline Phosphatase 94 U/L (45-117); Anion Gap 5 (5-15); BUN 16 mg/dL (7-18); BUN/Creat Ratio 19.8 RATIO (10-20); Chloride 103 mmol/L (98-107); Cholesterol 186 mg/dL (200); Creatinine, Serum 0.81 mg/dL (0.55-1.02); EST Glomerular Filtration Rate 75 mL/min (>60); Est Glom Filt Rate - Afr Amer 90 mL/min (>60); Globulin 3.3 g/dL (2.2-4.2); Glucose 103 mg/dL (74-106); High Density Lipoprotein 52 mg/dL; Potassium 3.3 mmol/L (3.5-5.1); Protein, Total 7.1 g/dL (6.4-8.2); Sodium Level 138 mmol/L (136-145); Thyroid Stim Hormone (TSH) 1.44 uIU/mL (0.358-3.74); Triglycerides 91 mg/dL; Very Low Density Lipoprotein 18 mg/dL (5-40)
== END | disposition home or self-care (01) ==
LOC: LAB 08:47
PROVIDERS: PCP Internal Medicine; Referring Provider Internal Medicine; Visit Provider Internal Medicine
DX: I10 Essential (primary) hypertension (principal); K21.9 Gastro-esophageal reflux disease without esophagitis; E83.52 Hypercalcemia; R73.9 Hyperglycemia, unspecified; Z13.220 Encounter for screening for lipoid disorders
CPT/HCPCS: 36415; 80053; 80061; 83036; 84443; 85025

== ENCOUNTER → 2024-09-09 | Outpatient (CLI) | payer MEDICARE, OTHER, SELFPAY ==
[2024-09-09 09:12] LABS: Absolute Lymphocyte Count 1.77 X10^3/uL (0.83-4.51); Absolute Neutrophil Count 5.2 X10^3/uL (2.0-7.7); Basophil# 0.05 X10^3/uL; Basophil% 0.6 % (0-1); Eosinophil# 0.11 X10^3/uL; Eosinophils% 1.4 % (0-5); Hematocrit 45.5 % (37-47); Hemoglobin 15.4 g/dL (12.0-15.0); Lymphocyte # 1.77 X10^3/ul (0.83-4.51); Lymphocyte % 22.2 % (19-41); Mean Corp Hgb Conc 33.8 g/dL (32-36); Mean Corpuscular Hgb 29.2 pg (27.0-32.0); Mean Corpuscular Volume 86.2 fL (81-99); Mean Platelet Vol. 10.2 fl (6.2-12.0); Monocyte# 0.79 X10^3/uL; Monocyte% 9.9 % (0-10); NRBC Flagged by Analyzer 0 % (0-5); Neutrophil # 5.21 X10^3/uL (2.7-7.7); Neutrophil % 65.5 % (47-70); Platelet Count 250 K/mm3 (150-450); RBC Distribution Width CV 12.9 % (11.6-14.6); RBC Distribution Width SD 40.2 fl (35.1-43.9); Red Blood Count 5.28 M/mm3 (4.2-5.4)
[2024-09-09 10:03] LABS: ALB/GLOB Ratio 1.2 RATIO (0.9-2.4); AST(SGOT) 22 U/L (15-37); Alanine Aminotransfer ALT/SGPT 26 U/L (13-56); Alkaline Phosphatase 96 U/L (45-117); Anion Gap 7 (5-15); BUN 17 mg/dL (7-18); BUN/Creat Ratio 22.9 RATIO (10-20); Calcium,Total 9.4 mg/dL (8.5-10.1); Chloride 99 mmol/L (98-107); Cholesterol 210 mg/dL (200); Creatinine, Serum 0.74 mg/dL (0.55-1.02); EST Glomerular Filtration Rate 82 mL/min (>60); Est Glom Filt Rate - Afr Amer 99 mL/min (>60); Globulin 3.4 g/dL (2.2-4.2); Glucose 107 mg/dL (74-106); High Density Lipoprotein 60 mg/dL; Magnesium 2.6 mg/dL (1.6-2.6); Potassium 3.2 mmol/L (3.5-5.1); Protein, Total 7.4 g/dL (6.4-8.2); Sodium Level 136 mmol/L (136-145); Triglycerides 109 mg/dL; Very Low Density Lipoprotein 22 mg/dL (5-40)
== END | disposition home or self-care (01) ==
PROVIDERS: PCP Internal Medicine; Referring Provider Internal Medicine; Visit Provider Internal Medicine
DX: Z13.220 Encounter for screening for lipoid disorders (principal); I10 Essential (primary) hypertension; K21.9 Gastro-esophageal reflux disease without esophagitis; E78.5 Hyperlipidemia, unspecified
CPT/HCPCS: 36415; 80053; 80061; 83735; 84443; 85025

== ENCOUNTER 2024-12-13 21:01 | Emergency (ER) | payer MEDICARE, OTHER, SELFPAY ==
[2024-12-13 21:01] VITALS: BP 156/79; PULSE 62; RESP 16; TEMP 36.8; O2SAT 98; BMI 26.1
--- NOTE | 2024-12-13 22:50 | EKG12_ITS ---
Test Reason : DYSRHYTHMIA Blood Pressure : */* mmHG Vent. Rate : 52 BPM Atrial Rate : 52 BPM P-R Int : 172 ms QRS Dur : 92 ms QT Int : 490 ms P-R-T Axes : 75 37 77 degrees QTcB Int : 455 ms Sinus bradycardia Otherwise normal ECG Confirmed by RADHA DUQUE, ROSIO ([id number]), editorial clerk RAFAELA MOREL ([id number]) on 12/14/2024 8:56:19 AM Referred By: Confirmed By: ROSIO GARCIA MD
--- NOTE | 2024-12-13 22:50 | CT_ITS ---
PROCEDURE: BRAIN/HEAD WITHOUT CONTRAST REASON FOR EXAM: Hypertension, migraines. TECHNIQUE: Multiple, axial CT images of the brain are obtained without intravenous contrast. Coronal and sagittal 2D reformatted images were provided for better evaluation. COMPARISON: None. FINDINGS: Brain volume is age appropriate. The ventricles are not effaced or dilated. No midline shift, mass effect, or extra-axial fluid collections are identified. No acute intracranial hemorrhage, mass, or acute territorial infarction is identified per CT criteria. Combs-white junction is preserved. Calvarium is intact. Visualized paranasal sinuses are clear. Nasal septum is deviated to the right. CT/Brain/Head without Contrast IMPRESSION: No acute intracranial process. One or more dose reduction techniques were used (e.g., Automated exposure contr ol, adjustment of the mA and/or kV according to patient size, use of iterative reconstruction technique). Reading [facility]
[2024-12-13 23:01] VITALS: BP 106/67; PULSE 55; RESP 14; O2SAT 96
[2024-12-13] MEDS: Metoclopramide 10 MG/2 ML Vial IV (23:07)
[2024-12-13] MEDS: DiphenhydrAMINE 50 MG/ML Syringe 25 MG IV (23:07)
[2024-12-13] MEDS: Ketorolac 15 MG/ML Vial IV (23:07)
[2024-12-13 23:10] LABS: Absolute Lymphocyte Count 2.67 X10^3/uL (0.83-4.51); Absolute Neutrophil Count 6.9 X10^3/uL (2.0-7.7); Basophil# 0.08 X10^3/uL; Basophil% 0.7 % (0-1); Eosinophil# 0.27 X10^3/uL; Eosinophils% 2.5 % (0-5); Hematocrit 43.9 % (37-47); Hemoglobin 15.4 g/dL (12.0-15.0); Lymphocyte # 2.67 X10^3/ul (0.83-4.51); Lymphocyte % 24.4 % (19-41); Mean Corp Hgb Conc 35.1 g/dL (32-36); Mean Corpuscular Hgb 29.7 pg (27.0-32.0); Mean Corpuscular Volume 84.7 fL (81-99); Mean Platelet Vol. 10.4 fl (6.2-12.0); Monocyte# 0.97 X10^3/uL; Monocyte% 8.9 % (0-10); NRBC Flagged by Analyzer 0 % (0-5); Neutrophil # 6.94 X10^3/uL (2.7-7.7); Neutrophil % 63.2 % (47-70); Platelet Count 260 K/mm3 (150-450); RBC Distribution Width CV 12.6 % (11.6-14.6); RBC Distribution Width SD 38.1 fl (35.1-43.9); Red Blood Count 5.18 M/mm3 (4.2-5.4)
[2024-12-13 23:23] LABS: Anion Gap 9 (5-15); BUN 19 mg/dL (7-18); BUN/Creat Ratio 25.1 RATIO (10-20); Calcium,Total 10.2 mg/dL (8.5-10.1); Chloride 95 mmol/L (98-107); Creatinine, Serum 0.76 mg/dL (0.55-1.02); EST Glomerular Filtration Rate 80 mL/min (>60); Est Glom Filt Rate - Afr Amer 97 mL/min (>60); Estimated Creatinine Clearance 67.12 ml/min; Glucose 115 mg/dL (74-106); Potassium 3.1 mmol/L (3.5-5.1); Sodium Level 135 mmol/L (136-145)
--- NOTE | 2024-12-14 00:31 | EX.ED.DYSGE1 ---
HPI History of Present Illness Chief Complaint: Headache PFSH [facility] Medical History Diverticulitis Vision problems GERD (gastroesophageal reflux disease) Pneumonia Irritable bowel syndrome Migraine Gastrointestinal problem Gallstones Carpal tunnel syndrome Cataracts, both eyes UTI (urinary tract infection) Back problem Arthritis Hypertension Home Medications ?Medication ?Instructions ?Recorded ?Last Taken ?Type cetirizine 10 mg capsule (Zyrtec) 10 mg PO DAILY 08/07/22 Unknown History multivitamin 1 tab PO DAILY 08/07/22 Unknown History probiotic PO 08/07/22 Unknown History vitamin c PO 08/07/22 Unknown History calcium PO 2XW 09/10/23 Unknown History aspirin 81 mg tablet,delayed 81 mg PO QDAY 09/15/24 Unknown History release chlorthalidone 25 mg tablet 25 mg PO DAILY #90 tabs 09/15/24 Unknown Rx amlodipine 5 mg tablet 5 mg PO DAILY #90 tabs 12/02/24 Unknown Rx metoprolol succinate 25 mg 25 mg PO BID #180 tabs 12/02/24 Unknown Rx tablet,extended release 24 hr Allergy/AdvReac Type Severity Reaction Status Date / Time Seasonal Allergies: Uncoded Allergy Intermediate Itching Verified 12/13/24 21:03 Family History Brother Alcoholism Hypertension Mother Cancer lung Hypertension Grandmother Arthritis Hypertension Grandfather Arthritis Hypertension Father Myocardial infarction at 46 years old Hypertension Other Diabetes Diverticular disease Heart disease Surgical History Enlarged tonsils and adenoids Hx of cholecystectomy Hx of arthroscopic knee surgery Status post total hip replacement, right Social History (Updated 09/15/24 @ 13:24 by Debra Damian RN) adopted: No household members: spouse housing: apartment current occupational status: retired Smoking Status: Former smoker alcohol intake: never details: occasional beer or ryann substance use type: does not use well-balanced diet: daily or most days caffeine: Yes eating out: 1-3 times/week during the past year weight has: remained stable what type of physical activity do you participate in: walking aleksey/hindu: Evangelical seatbelt use: always do you feel safe at home: Yes EXAM Physical Exam Const Vital Signs: 12/13/24 21:01 12/13/24 23:01 Temperature 98.2 F Temperature Source Oral Pulse Rate 62 55 L Respiratory Rate 16 14 Blood Pressure 156/79 H 106/67 Blood Pressure Mean 104 80 Pulse Ox 98 96 Oxygen Delivery Method Room Air Room Air MDM MDM History & Record Review Discussion w/independent historian: Patient and Significant other Lab Data Attestation: I reviewed the patient's lab results. Labs: Laboratory Results - last 24 hr 12/13/24 22:58 WBC 11.0 RBC 5.18 Hgb 15.4 H Hct 43.9 MCV 84.7 MCH 29.7 MCHC 35.1 RDW Std Deviation 38.1 RDW Coeff of Sylvain 12.6 Plt Count 260 MPV 10.4 Immature Gran % (Auto) 0.300 Neut % (Auto) 63.2 Lymph % (Auto) 24.4 [place] % (Auto) 8.9 Eos % (Auto) 2.5 Baso % (Auto) 0.7 Absolute Neuts (auto) 6.9 Absolute Lymphs (auto) 2.67 Nucleated RBC % 0 Sodium 135 L Potassium 3.1 L Chloride 95 L Carbon Dioxide 31.0 Anion Gap 9 BUN 19 H Creatinine 0.76 Estim Creat Clear Calc 67.12 Est GFR (MDRD) Af Amer 97 Est GFR (MDRD) Non-Af 80 BUN/Creatinine Ratio 25.1 H Glucose 115 H Calcium 10.2 H Radiography Diagnostic Testing: Clinical Impression(s) from Imaging Studies Brain CT 12/13/24 22:50 IMPRESSION: No acute intracranial process. One or more dose reduction techniques were used (e.g., Automated exposure control, adjustment of the mA and/or kV according to patient size, use of iterative reconstruction technique). Reading Location: [facility] Discharge Plan Triage Chief Complaint: Headache ED Provider: Thomas Quintanilla Dx/Rx/DC Orders Clinical Impression: Accelerated hypertension, Cephalgia Instructions: Controlling High Blood Pressure, ED Headache Unspecified Prescriptions: No Action vitamin c PO multivitamin Tablet 1 tab PO DAILY probiotic PO Zyrtec 10 mg capsule 10 mg PO DAILY calcium PO 2XW chlorthalidone 25 mg tablet 25 mg PO DAILY Qty: 90 3RF aspirin 81 mg tablet,delayed release (DR/EC) 81 mg PO QDAY metoprolol succinate 25 mg tablet extended release 24 hr 25 mg PO BID Qty: 180 3RF amlodipine 5 mg tablet 5 mg PO DAILY Qty: 90 3RF Primary Care Provider: Julieta Billingsley Referrals: Julieta Billingsley MD [Primary Care Provider] - Activity Restrictions/Additional Instructions: Please follow-up with your family doctor to discuss additional blood pressure medications as it appears that is the high blood pressure driving your headache. However the hypertension is not causing any endorgan damage and therefore you are safe for discharge. Please continue all of your home medications as directed by your doctor until you discuss additional treatment options Print Language: Welsh Disposition Disposition: Home, Self Care
[2024-12-14 00:42] VITALS: BP 149/67; PULSE 58; RESP 16; TEMP 36.7; O2SAT 97
== END 2024-12-14 00:43 | disposition home or self-care (01) ==
PROVIDERS: Emergency Provider Emergency Medicine; PCP Internal Medicine; Visit Provider Emergency Medicine
DX: I10 Essential (primary) hypertension (principal); R51.9 Headache, unspecified; Z87.891 Personal history of nicotine dependence; K21.9 Gastro-esophageal reflux disease without esophagitis
CPT/HCPCS: 70450; 80048; 85025; 93005; 96374; 96375; 99284; A4216

== ENCOUNTER → 2025-01-20 | Outpatient (CLI) | payer MEDICARE, OTHER, SELFPAY ==
[2025-01-20 11:28] LABS: PTHIN 35 pg/mL (11-61)
[2025-01-20 12:18] LABS: Cholesterol 190 mg/dL (<=200); High Density Lipoprotein 58 mg/dL; Low Density Lipoprotein Calc. 113 mg/dL; Magnesium 1.9 mg/dL (1.5-2.2); Triglycerides 95 mg/dL; Very Low Density Lipoprotein 19 mg/dL (5-40); cholesterol:hdl ratio screen 3.29
[2025-01-26 21:07] LABS: ALDOSTERONE/RENIN RATIO 2.5 (0.0-30.0); Renin, Plasma 8.512 ng/mL/hr (0.167-5.380)
== END | disposition home or self-care (01) ==
PROVIDERS: PCP Internal Medicine; Referring Provider Internal Medicine; Visit Provider Internal Medicine
DX: Z13.220 Encounter for screening for lipoid disorders (principal); I10 Essential (primary) hypertension; E83.52 Hypercalcemia
CPT/HCPCS: 36415; 80061; 82088; 82533; 83735; 83970; 84244

== ENCOUNTER → 2025-07-05 | Outpatient (CLI) | payer MEDICARE, OTHER, SELFPAY ==
[2025-07-05 12:28] LABS: Hematocrit 39.3 % (37-47); Hemoglobin 13.4 g/dL (12.0-15.0); Immature Granulocytes Count 0.040 X10^3/uL (0.0-0.0); Mean Corp Hgb Conc 34.1 g/dL (32-36); Mean Corpuscular Volume 82.2 fL (81-99); Mean Platelet Vol. 10.6 fl (6.2-12.0); NRBC Flagged by Analyzer 0 % (0-5); Platelet Count 302 K/mm3 (150-450); RBC Distribution Width CV 12.8 % (11.6-14.6); RBC Distribution Width SD 38.5 fl (35.1-43.9); Red Blood Count 4.78 M/mm3 (4.2-5.4); White Blood Count 11.8 K/mm3 (4.4-11.0)
[2025-07-05 13:29] LABS: AST(SGOT) 17 U/L (<=31); Alanine Aminotransfer ALT/SGPT 9 U/L (<=34); Albumin, Serum 4.2 g/dL (3.4-4.8); Alkaline Phosphatase 96 U/L (35-104); Anion Gap 16 (5-15); BUN 14 mg/dL (4-19); BUN/Creat Ratio 21.5 RATIO (10-20); Calcium,Total 10.2 mg/dL (7.6-11.0); Carbon Dioxide 24.7 mmol/L (21.0-32.0); Chloride 95 mmol/L (98-108); Cholesterol 169 mg/dL (<=200); Globulin 3.2 g/dL (2.2-4.2); Glucose 102 mg/dL (70-99); Low Density Lipoprotein Calc. 105 mg/dL; Magnesium 2.0 mg/dL (1.5-2.2); Potassium 3.7 mmol/L (3.3-5.1); Triglycerides 90 mg/dL; Very Low Density Lipoprotein 18 mg/dL (5-40); Vitamin B12 589 pg/mL (180-914); Vitamin D,25 Hydroxy 65.0 ng/mL (30-100); cholesterol:hdl ratio screen 3.66
== END | disposition home or self-care (01) ==
LOC: MTLAB 10:08
PROVIDERS: PCP Internal Medicine; Referring Provider Internal Medicine; Visit Provider Internal Medicine
DX: Z13.220 Encounter for screening for lipoid disorders (principal); I10 Essential (primary) hypertension; E55.9 Vitamin D deficiency, unspecified; E53.8 Deficiency of other specified B group vitamins
CPT/HCPCS: 36415; 80053; 80061; 82306; 82607; 83735; 84443; 85025

== ENCOUNTER 2025-07-11 10:42 | Emergency (ER) | payer MEDICARE, OTHER, SELFPAY ==
[2025-07-11] VITALS (11 sets, daily range): BP systolic 114–181; BP diastolic 73–94; PULSE 76–94; RESP 12–17; TEMP 36.8; O2SAT 94–99; BMI 25.0
--- NOTE | 2025-07-11 11:42 | EX.ED.DYSGE1 ---
HPI History of Present Illness Chief Complaint: Dizziness Informant: patient Onset/Context/Timing Onset: Weeks (1) Context: Gradual Onset Timing: Continuous Quality: Lightheaded, off-balance Location: Generalized Worsened by: Turning her head Relieved by: Nothing Narrative Narrative: Patient presents with dizziness and lightheadedness for the past week. Patient states it came on gradually. Patient states she feels like she is off balance when she is walking. Patient admits to some fatigue and decreased appetite. Patient states she was recently started on cefuroxime 5 days ago. Patient states she has not had any improvement with this. Patient states her dizziness is worse when she turns her head. Patient admits to some subjective chills. Patient admits to a frontal headache. Patient admits to some nausea and vomiting. Patient admits to some pain in her right ear. [facility] Medical History Diverticulitis Vision problems GERD (gastroesophageal reflux disease) Pneumonia Irritable bowel syndrome Migraine Gastrointestinal problem Gallstones Carpal tunnel syndrome Cataracts, both eyes UTI (urinary tract infection) Back problem Arthritis Hypertension Home Medications ?Medication ?Instructions ?Recorded ?Last Taken ?Type cetirizine 10 mg capsule (Zyrtec) 10 mg PO DAILY 08/07/22 Unknown History multivitamin 1 tab PO DAILY 08/07/22 Unknown History probiotic PO 08/07/22 Unknown History vitamin c PO 08/07/22 Unknown History calcium PO 2XW 09/10/23 Unknown History aspirin 81 mg tablet,delayed 81 mg PO QDAY 09/15/24 Unknown History release chlorthalidone 25 mg tablet 25 mg PO DAILY #90 tabs 09/15/24 Unknown Rx metoprolol succinate 25 mg 25 mg PO QDAY 01/27/25 Unknown History tablet,extended release 24 hr cefuroxime axetil 250 mg tablet 250 mg PO BID 7 days #14 tabs 07/06/25 Unknown Rx Allergy/AdvReac Type Severity Reaction Status Date / Time Seasonal Allergies: Uncoded Allergy Intermediate Itching Verified 07/11/25 10:43 Family History Brother Alcoholism Hypertension Mother Cancer lung Hypertension Grandmother Arthritis Hypertension Grandfather Arthritis Hypertension Father Myocardial infarction at 46 years old Hypertension Other Diabetes Diverticular disease Heart disease Surgical History Enlarged tonsils and adenoids Hx of cholecystectomy Hx of arthroscopic knee surgery Status post total hip replacement, right Social History adopted: No household members: spouse housing: apartment current occupational status: retired Smoking Status: Former smoker alcohol intake: never details: occasional beer or ryann substance use type: does not use well-balanced diet: daily or most days caffeine: Yes eating out: 1-3 times/week during the past year weight has: remained stable what type of physical activity do you participate in: walking aleksey/protestant: [employer]ism seatbelt use: always do you feel safe at home: Yes ROS ROS ED Constitutional Constitutional ED: Reports chills and subjective; Denies fever(s) Eyes Eyes: Denies blurry vision or change in vision ENT ENT ED: Reports ear pain right; Denies rhinorrhea or sore throat Cardiovascular Cardiovascular: Denies chest pain or palpitations Respiratory/Chest Respiratory/Chest: Reports cough; Denies dyspnea Gastrointestinal Gastrointestinal: Reports nausea and vomiting Genitourinary Genitourinary ED: Denies dysuria or hematuria Musculoskeletal Musculoskeletal: Denies back pain or neck pain Integumentary Denies abscess or rash Neurologic Neurologic: Reports headache(s); Denies weakness Allergic/Immunologic Allergic/Immunologic ED: Denies mouth swelling or urticaria EXAM Physical Exam Const Vital Signs: 07/11/25 10:43 07/11/25 11:42 07/11/25 13:00 Temperature 98.2 F Temperature Source Oral Pulse Rate 94 81 80 Pulse Rate [Lying] Pulse Rate [Sitting (for 1 minute prior to obtaining)] Pulse Rate [Standing (for 1 minute prior to obtaining)] Respiratory Rate 16 15 13 Blood Pressure 177/83 H 156/74 H 114/87 H Blood Pressure [Lying] Blood Pressure [Sitting (for 1 minute prior to obtaining)] Blood Pressure [Standing (for 1 minute prior to obtaining)] Blood Pressure Mean 114 101 96 Blood Pressure Mean [Lying] Blood Pressure Mean [Sitting (for 1 minute prior to obtaining)] Blood Pressure Mean [Standing (for 1 minute prior to obtaining)] Pulse Ox 97 99 96 Oxygen Delivery Method Room Air 07/11/25 13:17 07/11/25 14:07/11/25 15:00 Temperature Temperature Source Pulse Rate 78 84 Pulse Rate [Lying] 76 Pulse Rate [Sitting (for 1 minute prior to obtaining)] 76 Pulse Rate [Standing (for 1 minute prior to obtaining)] 85 Respiratory Rate 13 13 Blood Pressure 164/76 H 181/78 H Blood Pressure [Lying] 139/80 H Blood Pressure [Sitting (for 1 minute prior to obtaining)] 156/80 H Blood Pressure [Standing (for 1 minute prior to obtaining)] 153/87 H Blood Pressure Mean 105 112 Blood Pressure Mean [Lying] 99 Blood Pressure Mean [Sitting (for 1 minute prior to obtaining)] 105 Blood Pressure Mean [Standing (for 1 minute prior to obtaining)] 109 Pulse Ox 96 96 Oxygen Delivery Method Room Air Positive well nourished and well developed General Appearance ED: well developed and NAD HEENT Reports moist mucous membranes Eyes EOMs intact bilaterally Eyes Narrative: There is mild nystagmus with lateral gaze bilaterally. Neck supple and no JVD Resp normal respiratory effort and clear to auscultation bilaterally Cardio regular rate and regular rhythm GI non-tender and non-distended Palpation: soft Extremity normal to inspection Neuro oriented x3, CN's II-XII intact bilaterally and no sensory deficits noted Neuro Narrative: Finger-nose testing was intact. Sensorium / Orientation: alert Motor Exam: strength 5/5 throughout Psych mental status grossly normal MDM MDM MDM Narrative Medical decision making narrative: Differential diagnosis includes stroke, intracranial bleeding, labyrinthitis, vertigo, dehydration, urinary tract infection, cardiac ischemia, and electrolyte abnormality. EKG will be obtained to assess for cardiac dysrhythmia and cardiac ischemia. CT scan of the brain will be obtained to assess for intracranial bleeding and stroke. CBC will be obtained to assess for leukocytosis and anemia. Basic metabolic profile will be obtained to assess for electrolyte abnormality and renal function. Urinalysis will be obtained to assess for urinary tract infection and hematuria. Orthostatic vital signs will be obtained to assess for hypovolemia and dehydration. History & Record Review Additional record(s) reviewed:: Prior ED visit and Prior labs Lab Data Attestation: I reviewed the patient's lab results. Lab results narrative: CBC was reviewed. There is a mild leukocytosis of 13.4. The remainder is within normal limits. Basic metabolic profile was reviewed. Glucose was mildly elevated at 151. The remainder was within normal limits. Urinalysis was reviewed. There is no evidence of urinary tract infection or hematuria. Labs: Laboratory Results - last 24 hr 07/11/25 07/11/25 11:21 12:30 WBC 13.4 H RBC 5.02 Hgb 14.0 Hct 40.8 MCV 81.3 MCH 27.9 MCHC 34.3 RDW Std Deviation 38.0 RDW Coeff of [place] 12.9 Plt Count 291 MPV 11.0 Immature Gran % (Auto) 0.400 Neut % (Auto) 85.8 H Lymph % (Auto) 8.8 L [place] % (Auto) 4.0 Eos % (Auto) 0.7 Baso % (Auto) 0.3 Absolute Neuts (auto) 11.5 H Absolute Lymphs (auto) 1.18 Nucleated RBC % 0 Sodium 134 Potassium 3.4 Chloride 97 L Carbon Dioxide 22.0 Anion Gap 15 BUN 18 Creatinine 0.59 L Estim Creat Clear Calc 60.38 Est GFR (MDRD) Non-Af 96 BUN/Creatinine Ratio 29.6 H Glucose 151 H Calcium 9.9 Urine Color Yellow Urine Clarity Clear Urine pH 6.0 Ur Specific [place] 1.020 Urine Protein 100 H Urine Glucose (UA) Normal Urine Ketones 50 H Urine Occult Blood 10 H Urine Nitrite Negative Urine Bilirubin Negative Urine Urobilinogen Normal Ur Leukocyte Esterase 25 H Urine RBC 0-5 SEEN Urine WBC 0-5 SEEN Ur Squamous Epith Cells 0-5 SEEN Urine Bacteria 0 SEEN Urine Mucus 2+ Radiography Diagnostic Testing: Clinical Impression(s) from Imaging Studies Brain CT 07/11/25 12:21 IMPRESSION: 1. Low-density in the right temporal and occipital lobe and also of the right cerebellar hemisphere suggestive of vasogenic edema likely from underlying masses. This is new compared to December 13, 2024. Mild subfalcine herniation to the left 6.4 mm. Contrast-enhanced MRI may be helpful. 2. No hemorrhage. Reading Location: [facility] EKG Initial EKG: Attestation: I personally reviewed and interpreted this EKG as follows: Interpretation: Sinus Rhythm (With frequent PVCs with a rate of 78) and No Acute Injury Pattern Comments: EKG was obtained. On my independent interpretation, showed normal sinus rhythm with frequent PVCs with a rate of 78. CA interval was normal at 176 ms. QRS interval was normal at 92 ms. QTc interval was 494 ms. [place] was normal at 58. There are no acute ST-T wave changes. Prior EKG tracings: available for review Prior: Unchanged (12/13/2024) Treatment and Re-Evaluation :: Patient was given a dose of Valium here. Patient had no improvement with Valium. Patient was advised of her findings. Patient was advised of the need for further neurologic testing and admission to the hospital. Case was discussed with the hospitalist here. She stated that the patient would need to be transferred to a tertiary care center. Patient requested to go to [place]. Case was discussed with transfer line at [facility]. Case was also discussed with neurosurgery at [facility]. They will review the images to see if the patient needs to go to ICU versus medical floor. Patient will be transferred up there after acceptance. Patient and family understood and were agreeable with the plan. All questions were answered. Discharge Plan Triage Chief Complaint: Dizziness ED Provider: Chencho Escalona Dx/Rx/DC Orders Clinical Impression: Brain mass, Dizziness, Hypertension Prescriptions: No Action vitamin c PO multivitamin Tablet 1 tab PO DAILY probiotic PO Zyrtec 10 mg capsule 10 mg PO DAILY calcium PO 2XW chlorthalidone 25 mg tablet 25 mg PO DAILY Qty: 90 3RF metoprolol succinate 25 mg tablet extended release 24 hr 25 mg PO QDAY aspirin 81 mg tablet,delayed release (DR/EC) 81 mg PO QDAY cefuroxime axetil 250 mg tablet 250 mg PO BID 7 Days Qty: 14 0RF Primary Care Provider: Julieta Billingsley Referrals: Julieta Billingsley MD [Primary Care Provider] - Print Language: Hong Konger Disposition Disposition: Acute Care [facility]
--- OUTSIDE RECORDS SUMMARY | 2025-07-11 11:56 | XMS RPT_ITS | CCD ---
Author Organization [facility] CliniSytn Care Team Providers Care Assembler Product Name Role Phone SABA COBURN Admitting Unavailable SABA COBURN Attending Unavailable KIARRA NUGENT Consulting Unavailable King Mullen MD Primary Care Provider Ariel Onofre MD Unavailable DR KING MULLEN MD Primary Care Physician U Dr. Britt Huff Emergency Provider [phone] Care Physician, No Primary Primary Care Provider Unavailable Dr. John Car Attending Provider King Mullen MD Primary Care Provider Ariel Onofre MD Unavailable Andrew Billingsley MD Primary Care Provider Dr. Britt Srivastava Emergency Provider [phone] Care Physician, No Primary Primary Care Provider Unavailable Dr. John Car Attending Provider Dr. John Car Admit Provider Dr. John Car Other Provider Dr. Sadia Carpenter Attending Provider Dr. Sadia Carpenter Other Provider MD Andrew Billingsley Primary Care Provider Unavail Donald Herrera Attending Provider Unavailable Dr. Andrew Billingsley Attending Provider Ariel Onofre MD Unavailable Andrew Billingsley MD Primary Care Provider ANDREW BILLINGSLEY Primary Care Unavailable SELF Referring Unavailable Dr. Andrew Billingsley MD Primary Care Provider Dr. Thomas Quintanilla DO Attending Provider Dr. Thomas Quintanilla DO Emergency Provider Analilia DUQUE, Dr. Rendon Attending Provider Analilia DUQUE, Dr. Rendon Referring Provider Analilia, Andrew Primary Care Unavailable Analilia, Andrew Attending Unavailable Analilia, Andrew Referring Unavailable Analilia, Andrew Primary Care Unavailable Analilia, Andrew Attending Unavailable Analilia, Andrew Referring Unavailable Analilia, Andrew Primary Care Unavailable Thomas Quintanilla Attending Unavailable Analilia, Andrew Attending Unavailable Analilia, Andrew Referring Unavailable Analilia, Andrew Primary Care Unavailable Analilia, Andrew Attending Unavailable Analilia, Andrew Primary Care Unavailable Marianne Watson Attending Unavailable Analilia, Andrew Referring Unavailable Analilia, Andrew Primary Care Unavailable Analilia, Andrew Primary Care Unavailable Andrew Billingsley Attending Unavailable Allergies Allergy Classification Reported Allergen(s) Allergy Type Date of Onset Reaction(s) Facility (5 sources) Seasonal Allergies: Uncoded; Translations: [Seasonal Allergies: Uncoded] Allergy to substance 09-09-2022 Itching [facility] Medications Current Medications Medication Drug Class(es) Dates Sig (Normalized) Sig (Original) Ascorbic Acid (4 sources) Vitamin C Start: 08-07-2022 vitamin c Acti ve PO August 07, 2022 12:00am Start: 08-07-2022 vitamin c Acti ve PO August 06, 2022 11:00pm aspirin 81 mg delayed release oral tablet (14 sources) Platelet Aggregation Inhibitor, Nonsteroidal Anti-inflammatory Drug Start: 09-15-2024 take 1 tablet by mouth once daily Aspirin 81 mg tablet,delayed release (DR/EC) Active 81 mg PO daily September 15, 2024 2:23pm Start: 07-10-2022 End: 09-15-2024 take 1 tablet by mouth twice daily Aspirin 81 mg Tablet,Delayed Release (Dr/Ec) Discontinued 81 mg PO TWICE A DAY July 12, 2022 12:00am September 15, 2024 2:23pm Start: 07-19-2008 aspirin(BABY A SPIRIN 81 MG CHEWABLE TAB) Take one(1) tablet daily. 0 07/19/2008 Active Comment on above: Take one(1) tablet d aily. bifidobacterium infantis 4 mg oral capsule (2 sources) Start: 06-28-2022 Align 4 mg oral capsule Dose : 4 mg = 1 cap(s), Oral, Daily, PROBIOTIC, # 28 cap(s), 0 Refill(s) Start Date: 06/28/22 Status: Ordered Calcium (5 sources) Phosphate Binder, Calcium Start: 09-10-2023 calcium Active PO TWICE A WEEK September 10, 2023 8:06am Start: 08-07-2022 End: 09-10-2023 calcium Discontinued PO Jul 12:00am September 10, 2023 8:07am Start: 08-07-2022 calcium Active PO August 07, 2022 12:00am Start: 08-07-2022 calcium Active PO August 06, 2022 11:00pm calcium carbonate 1500 mg oral tablet (2 sources) Start: 06-28-2022 calcium (as carbonate) 600 mg oral tablet Dose : 600 mg = 1 tab(s), Oral, qDay, 0 Refill(s) Start Date: 06/28/22 Status: Ordered cetirizine hydrochloride 10 mg oral capsule (12 sources) Histamine-1 Receptor Antagonist Start: 08-07-2022 take 1 capsule by mouth once daily Cetirizine (Zyrtec) 10 mg capsule Active 10 mg PO DAILY August 07, 2022 12:00am Start: 09-20-2021 take 1 tablet by jaylon th once daily cetirizine (ZYRTEC) 10 mg tablet Take 1 tablet by mouth once daily. 0 09/20/2021 Active Comment on above: Take 1 tablet by jaylon th once daily. chlorthalidone 25 mg oral tablet (20 sources) Thiazide-like Diuretic Start: End: take 1 tablet by mouth once daily Chlorthalidone 25 mg tablet Active 25 mg PO DAILY September 15, 2024 3:04pm Start: 09-10-2023 End: 08-23-2024 take 0.5 tablet by mouth once daily Chlorthalidone 25 mg tablet Discontinued 25 mg PO DAILY August 20, 2024 11:01am August 23, 2024 9:38am 1/2 tab daily Start: 02-11-2022 End: 09-10-2023 take 1 tablet by mouth once daily Chlorthalidone 25 mg tablet Discontinued 25 mg PO DAILY March 26, 2023 4:51pm September 10, 2023 8:09am Start: 12-07-2021 End: 02-09-2022 take 1 tablet by mouth once daily chlorthalidone (HYGROTON) 25 mg tablet Take 1 tablet by mouth once daily. 90 tablet 1 12/07/2021 02/09/2022 Discontinued Comment on above: Take 1 tablet by jaylon once daily. docusate sodium 50 mg / sennosides, alf 8.6 mg oral tablet (1 source) Start: 07-10-2022 End: 07-13-2022 take 1 tablet by mouth twice daily Senokot S 50 mg-8.6 mg oral tablet Dose = 2 tab(s), Oral, BID, Take until first bowel movement, then as needed, # 30 tab(s), 0 Refill(s), Pharmacy: [facility] #[id number], 167.6, cm, 07/09/22 10:30:00 EDT, Height Start Date: 07/10/22 Stop Date: 07/13/22 Status: Ordered 24 hr metoprolol succinate 25 mg extended release oral tablet (20 sources) beta-Adrenergic Kareem Start: 01-27-2025 take 1 tablet by mouth once daily Metoprolol Succinate 25 mg tablet extended release 24 hr Active 25 mg PO daily January 27, 2025 2:20pm Start: 12-02-2024 End: 01-27-2025 take 1 tablet by mouth twice daily Metoprolol Succinate 25 mg tablet extended release 24 hr Discontinued 25 mg PO TWICE A DAY December 02, 2024 10:20am January 27, 2025 2:20pm Start: 09-10-2023 End: 09-10-2023 take 2 tablets by mouth twice daily Metoprolol Succinate 50 mg tablet extended release 24 hr Discontinued 25 mg PO TWICE A DAY September 10, 2023 8:06am September 10, 2023 8:08am Start: 09-10-2023 End: 12-02-2024 take 1 tablet by mouth once daily Metoprolol Succinate 25 mg tablet extended release 24 hr Discontinued 25 mg PO DAILY September 15, 2024 3:04pm December 02, 2024 10:20am Start: 07-12-2022 End: 09-10-2023 take 1 tablet by mouth twice daily Metoprolol Succinate 50 mg tablet extended release 24 hr Discontinued 50 mg PO TWICE A DAY 180 March 26, 2023 4:51pm September 10, 2023 8:07am Start: 06-28-2022 Metoprolol Suc cinate ER 50 mg oral TABLET extended release Dose : 50 mg = 1 tab(s), Oral, BID, # 30 tab(s), 0 Refill(s) Start Date: 06/28/22 Status: Ordered Start: 02-11-2022 End: 07-10-2022 take 50 mg by mouth twice daily Metoprolol Succinate A ctive 50 MG PO TWICE A DAY July 11, 2022 11:00pm Start: 04-02-2021 End: 02-09-2022 take 1 tablet by mouth twice daily metoprolol succinate ER (TOPROL XL) 50 mg 24 hr tablet Indications: HTN (hypertension), benign Take 1 tablet by mouth twice a day 180 tablet 2 04/02/2021 02/09/2022 Discontinued Comment on above: Take 1 tablet by jaylon th twice daily. Take 1 tablet by jaylon th twice a day Multivitamin preparation (5 sources) Start: 08-07-2022 take 1 tablet by mouth once daily Multivitamin Active 1 TABLET PO DAILY August 07, 2022 12:00am Start: 08-07-2022 take 1 tablet by jaylon th once daily Multivitamin Active 1 TABLET PO DAILY August 06, 2022 11:00pm Start: 06-28-2022 take 1 tablet by jaylon th once daily Multivitamin Dose = 1 tab(s), Oral, Daily, 0 Refill(s) Start Date: 06/28/22 Status: Ordered Multivitamin tablet (1 source) Start: 08-07-2022 Multivitamin t ablet Active 1 {tbl} PO DAILY August 07, 2022 12:00am probiotic (4 sources) Start: 08-07-2022 probiotic Acti ve PO August 07, 2022 12:00am Start: 08-07-2022 probiotic Acti ve PO August 06, 2022 11:00pm Vitamin C 500 mg oral tablet (2 sources) Start: 06-28-2022 Vitamin C 500 mg oral tablet Dose : 500 mg = 1 tab(s), Oral, qDay, # 30 tab(s), 0 Refill(s) Start Date: 06/28/22 Status: Ordered Vitamin D3 (2 sources) Start: 06-28-2022 Vitamin D3 Dos e : 25 mcg = 1 tab(s), Oral, Daily, 0 Refill(s) Start Date: 06/28/22 Status: Ordered Completed/Discontinued Medications Medication Drug Class(es) Dates Sig (Normalized) Sig (Original) acetaminophen 500 mg oral tablet (7 sources) Start: 07-12-2022 End: 07-14-2022 Acetaminophen 500 mg tablet Discontinued 100 mg PO THREE TIMES A DAY July 12, 2022 12:00am July 14, 2022 11:37am Start: 07-12-2022 End: 07-14-2022 take 100 mg by mouth three times daily Acetaminophen Discontinued 100 MG PO THREE TIMES A DAY July 12, 2022 12:00am July 14, 2022 11:37am Start: 07-10-2022 End: 07-24-2022 take 1 tablet by mouth once daily acetaminophen 500 mg oral tablet Dose : 1,000 mg = 2 tab(s), Oral, TID, PRN as needed for pain, not to exceed 3000 mg/day, # 100 tab(s), 0 Refill(s), 07/24/22 7:50:00 EDT, Pharmacy: [id number], 167.6, cm, 07/09/22 10:30:00 EDT, Height Start Date: 07/10/22 Stop Date: 07/24/22 Status: Ordered amLODIPine 5 mg oral tablet (20 sources) Dihydropyridine Calcium Channel Kareem Start: 12-02-2024 End: 01-27-2025 take 1 tablet by mouth once daily Amlodipine 5 mg tablet Discontinued 5 mg PO DAILY December 02, 2024 1:46pm January 27, 2025 2:19pm Start: 06-28-2022 End: 08-23-2024 take 1 tablet by mouth once daily Amlodipine 5 mg tablet Discontinued 5 mg PO DAILY September 10, 2023 10:02am August 23, 2024 9:37am Start: 02-11-2022 take 1 tablet by jaylon th twice daily amLODIPine (NORVASC) 5 mg tablet Take 1 tablet by mouth twice daily. 180 tablet 2 02/11/2022 Active Start: 09-21-2021 End: 02-09-2022 take 1 tablet by mouth twice daily amLODIPine (NORVASC) 5 mg tablet Take 1 tablet by mouth twice a day (new directions) 180 tablet 2 09/21/2021 02/09/2022 Discontinued Comment on above: Take 1 tablet by jaylon th twice a day (new directions) Take 1 tablet by jaylon th twice daily. azithromycin 250 mg oral tablet (1 source) Macrolide Antimicrobial Start: 10-01-20 End: 09-15-20 Azithromycin (Zithromax Z-Jose) 250 mg tablet Discontinued 0 PO .COMPLEX October 01, 2023 1:00am September 15, 2024 2:23pm For 250 mg dose pack: take 500 mg today (day 1), then 250 mg for 4 days (days 2-5) PO calcium, elemental, tab (6 sources) Start: 10-17-20 take 1 tablet by mouth once daily calcium, elemental, tab Take 1 tablet by mouth once daily. 0 10/17/2015 Active Comment on above: Take 1 tablet by jaylon once daily. ciprofloxacin 500 mg oral tablet (6 sources) Quinolone Antimicrobial Start: 07-12-20 End: 08-07-20 take 1 tablet by mouth twice daily Ciprofloxacin Hcl 500 mg tablet Discontinued 500 mg PO TWICE A DAY July 12, 2022 12:00am August 07, 2022 12:32pm famotidine 40 mg oral tablet (5 sources) Histamine-2 Receptor Antagonist Start: 07-14-20 End: 08-07-20 22 take 1 tablet by mouth once daily Famotidine 40 mg tablet Discontinued 40 mg PO DAILY 14 July 14, 2022 12:00am August 07, 2022 12:33pm lactobacillus acidophilus [id number] unt oral capsule (6 sources) Start: 10-17-20 15 Lactobacillus acidophilus 10 billion cell cap Take once daily 0 10/17/2015 Active Comment on above: Take once daily lisinopril 20 mg oral tablet (20 sources) Angiotensin Converting Enzyme Inhibitor Start: 02-12-20 End: 09-10-20 take 1 tablet by mouth twice daily Lisinopril 20 mg tablet Discontinued 20 mg PO TWICE A DAY 180 March 26, 2023 4:51pm September 10, 2023 8:06am Start: 09-21-2021 End: 02-09-2022 take 1 tablet by mouth in the morning lisinopril (ZESTRIL, PRINIVIL) 20 mg tablet Indications: HTN (hypertension), benign Take 1 tablet by mouth in the morning and 1 tablet in the evening 180 tablet 2 09/21/2021 02/09/2022 Discontinued Comment on above: Take 1 tablet by jaylon th in the morning and 1 tablet in the evening meloxicam 7.5 mg oral tablet (7 sources) Nonsteroidal Anti-inflammatory Drug Start: 07-10-20 End: 07-14-20 take 1 tablet by mouth twice daily Meloxicam 7.5 mg tablet Discontinued 7.5 mg PO TWICE A DAY July 12, 2022 12:00am July 14, 2022 11:35am mesalamine 1200 mg delayed release oral tablet (5 sources) Aminosalicylate Start: 07-14-20 End: 08-07-20 take 1 tablet by mouth twice daily Mesalamine 1.2 gram tablet,delayed release (DR/EC) Discontinued 1.2 g PO TWICE A DAY 56 July 14, 2022 12:00am August 07, 2022 12:33pm metroNIDAZOLE 500 mg oral tablet (6 sources) Nitroimidazole Antimicrobial Start: 07-12-20 End: 08-07-20 take 1 tablet by mouth every six hours Metronidazole 500 mg tablet Discontinued 500 mg PO EVERY 6 HOURS 40 July 12, 2022 12:00am August 07, 2022 12:33pm multivitamins(DAILY VITAMIN TAB) (6 sources) Start: 09-04-20 multivitamins(DAILY VITAMIN TAB) Take one(1) tablet daily. 0 09/04/2009 Active Comment on above: Take one(1) tablet d aily. omeprazole 20 mg delayed release oral tablet (6 sources) Proton Pump Inhibitor Start: 08-07-20 End: 09-10-20 23 take 1 tablet by mouth once daily Omeprazole Magnesium (Prilosec Otc) 20 mg tablet,delayed release (DR/EC) Discontinued 20 mg PO DAILY August 07, 2022 12:00am September 10, 2023 8:07am Start: 06-28-2022 PriLOSEC OTC 2 0 mg oral delayed release tablet Dose : 20 mg = 1 tab(s), Oral, qDayAC, 0 Refill(s) Start Date: 06/28/22 Status: Ordered oxyCODONE hydrochloride 5 mg oral tablet (7 sources) Opioid Agonist Start: 07-10-2022 End: 08-07-2022 take 1 tablet by mouth every four hours as needed for pain Oxycodone 5 mg tablet Discontinued 5 mg PO EVERY 4 HOURS NEEDED as needed for Pain July 12, 2022 12:00am August 07, 2022 12:33pm Problems Active Problems Problem Classification Problem Date Documented Date Episodic/Chronic Abdominal pain (6 sources) Abdominal pain; Translations: [Unspecified abdominal pain] 07-20-2022 Episodic Administrative/social admission (1 source) Persons encountering health services in other specified circumstances; Translations: [Other reasons for seeking consultation] Episodic Cataract (6 sources) Senile cataract; Translations: [Unspecified age-related cataract] Onset: 01-10-2011 01-10-2011 Chronic Diabetes mellitus without complication (1 source) Prediabetes; Translations: [Prediabetes] Episodic Disorders of lipid metabolism (7 sources) Hypertriglyceridemia; Translations: [Pure hyperglyceridemia] Onset: 01-07-2019 09-19-2021 Chronic Diverticulosis and diverticulitis (12 sources) Diverticulitis of intestine, part unspecified, without perforation or abscess without bleeding; Translations: [Diverticulosis of colon] Onset: 03-05-2019 08-29-2005 Chronic Esophageal disorders (5 sources) Gastroesophageal reflux disease without esophagitis; Translations: [Gastro-esophageal reflux disease without esophagitis] Onset: 07-09-2022 Chronic Essential hypertension (19 sources) Benign hypertension; Translations: [Essential (primary) hypertension] Onset: 03-22-2002 Chronic Fluid and electrolyte disorders (9 sources) Hypokalemia; Translations: [Hypokalemia] Episodic Headache; including migraine (1 source) Headache; Translations: [Headache] 12-22-2024 Episodic Headache; including migraine (1 source) Headache; including migraine; Translations: [Headache, unspecified] Onset: 02-14-2025 Hypertension with complications and secondary hypertension (6 sources) Secondary hypertension; Translations: [Secondary hypertension, unspecified] Onset: 12-22-2020 09-18-2021 Chronic Nausea and vomiting (9 sources) Vomiting; Translations: [Vomiting, unspecified] Episodic Noninfectious gastroenteritis (9 sources) Colitis; Translations: [Noninfective gastroenteritis and colitis, unspecified] Episodic Nutritional deficiencies (1 source) Vitamin D deficiency; Translations: [Vitamin D deficiency, unspecified] Chronic Osteoarthritis (7 sources) Localized osteoarthrosis; Translations: [Unilateral primary osteoarthritis, unspecified knee] Onset: 07-19-2008 07-19-2008 Chronic Other connective tissue disease (1 source) Hip joint prosthesis present; Translations: [Presence of unspecified artificial hip joint] Onset: 07-09-2022 Chronic Other connective tissue disease (7 sources) History of total hip arthroplasty; Translations: [Presence of right artificial hip joint] 07-09-2022 Chronic Other connective tissue disease (4 sources) Presence of right artificial hip joint; Translations: [Hip joint replacement] Chronic Other ear and sense organ disorders (1 source) Impacted cerumen of bilateral ears; Translations: [Impacted cerumen, bilateral] Episodic Other nervous system disorders (6 sources) Carpal tunnel syndrome of right wrist; Translations: [Carpal tunnel syndrome, right upper limb] Onset: 04-03-2018 09-18-2021 Chronic Other nutritional; endocrine; and metabolic disorders (3 sources) Hypercalcemia; Translations: [Hypercalcemia] 03-28-2023 Chronic Other upper respiratory disease (6 sources) Allergic rhinitis; Translations: [Other allergic rhinitis] Onset: 11-23-2003 03-05-2004 Chronic Other upper respiratory infections (1 source) Upper respiratory infection; Translations: [Acute upper respiratory infection, unspecified] 10-01-2023 Episodic Past or Other Problems Problem Classification Problem Date Documented Date Episodic/Chronic Acquired foot deformities (6 sources) Plantarflexion deformity of foot; Translations: [Other acquired deformities of unspecified foot] Onset: 07-05-2015 07-05-2015 Episodic Joint disorders and dislocations; trauma-related (6 sources) Tear of medial meniscus of knee; Translations: [Tear of medial cartilage or meniscus of knee, current] Onset: 11-14-2005 11-14-2005 Episodic Nonspecific chest pain (6 sources) Chest pain; Translations: [Chest pain, unspecified] Onset: 10-14-2017 10-14-2017 Episodic Other connective tissue disease (6 sources) Inflammatory disorder of extremity; Translations: [Pes anserinus tendinitis or bursitis] Onset: 11-14-2005 11-14-2005 Episodic Other connective tissue disease (6 sources) Pain in right foot; Translations: [Pain in right foot] Onset: 07-05-2015 07-05-2015 Episodic Other screening for suspected conditions (not mental disorders or infectious disease) (1 source) Encounter for screening for lipoid disorders; Translations: [Encounter for screening for lipoid disorders] Onset: 02-01-2025 Episodic Results Test Name Value Interpretation Reference Range Facility CBC W/Diff, Automatedon 06-11 Absolute Lymph 1.73 X10 3/uL Normal 0.83-4.51 [facility] Comment on above: Performed By: #### L 503.0106, L501.5200, L501.9520, L500.4100, L500.4050, L100.0100, L506.1001 ####[facility] [address] [place], [address] Absolute Neut 8.8 X10 3/uL High 2.0-7.7 [facility] Comment on above: Performed By: #### L [id number], [id number], L501.9520, L500.4100, L500.4050, L100.0100, L506.1001 ####[facility] [address] [place], [address] Basophils/100 WBC (Bld) 0.4 % Normal 0-[address] [facility] Comment on above: Performed By: #### L [id number], [id number], L501.9520, L500.4100, L500.4050, L100.0100, L506.1001 ####[facility] [address] [place], [address] Eosinophils/100 WBC (Bld) 2.0 % Normal 0-5 [facility] Comment on above: Performed By: #### L [id number], [id number], L501.9520, L500.4100, L500.4050, L100.0100, L506.1001 ####[facility] [address] [place], [address] Erythrocyte distribution width (RBC) [Ratio] 12.8 % Normal 11.6-14.6 [facility] Comment on above: Performed By: #### L 503.0106, L501.5200, L501.9520, L500.4100, L500.4050, L100.0100, L506.1001 ####[facility] [address] [place], [address] Hematocrit (Bld) [Volume fraction] 39.3 % Normal 37-47 [facility] Comment on above: Performed By: #### L 503.0106, [id number], L501.9520, L500.4100, L500.4050, L100.0100, L506.1001 ####[facility] [address] [place], [address] Hemoglobin (Bld) [Mass/Vol] 13.4 g/dL Normal 12.0-15.0 [facility] Comment on above: Performed By: #### L 503.0106, L501.5200, L501.9520, L500.4100, L500.4050, L100.0100, L506.1001 ####[facility] [address] [place], [address] IG% 0.300 Normal 0.0-0.9 [facility] Comment on above: Result Comment: IG% - Immature Granulocytes (promyelocytes, myelocytes and metamyelocytes) > 1% indicates that a LEFT SHIFT is Present. Performed By: #### L 503.0106, L501.5200, L501.9520, L500.4100, L500.4050, L100.0100, L506.1001 ####[facility] [address] [place], [address] Lymphocytes/100 WBC (Bld) 14.7 % Low 19-41 [facility] Comment on above: Performed By: #### L 503.0106, [id number], L501.9520, L500.4100, L500.4050, L100.0100, L506.1001 ####[facility] [address] [place], [address] MCH (RBC) [Entitic mass] 28.0 pg Normal 27.0-32.0 [facility] Comment on above: Performed By: #### L 503.0106, L501.5200, L501.9520, L500.4100, L500.4050, L100.0100, L506.1001 ####[facility] [address] [place], [address] MCHC (RBC) [Mass/Vol] 34.1 g/dL Normal 32-36 [facility] Comment on above: Performed By: #### L 503.0106, L501.5200, L501.9520, L500.4100, L500.4050, L100.0100, L506.1001 ####[facility] [address] [place], [address] MCV (RBC) [Entitic vol] 82.2 fL Normal 81-[address] [facility] Comment on above: Performed By: #### L 503.0106, L501.5200, L501.9520, L500.4100, L500.4050, L100.0100, L506.1001 ####[facility] [address] [place], [address] Monocytes/100 WBC (Bld) 8.1 % Normal 0-[address] [facility] Comment on above: Performed By: #### L 503.0106, L501.5200, L501.9520, L500.4100, L500.4050, L100.0100, L506.1001 ####[facility] [address] [place], [address] Neutrophils/100 WBC (Bld) 74.5 % High 47-70 [facility] Comment on above: Performed By: #### L 503.0106, L501.5200, L501.9520, L500.4100, L500.4050, L100.0100, L506.1001 ####[facility] [address] [place], [address] Nucleated RBC (Bld) [#/Vol] 0 10*3/uL Normal 0-5 [facility] Comment on above: Performed By: #### L 503.0106, L501.5200, L501.9520, L500.4100, L500.4050, L100.0100, L506.1001 ####[facility] [address] [place], [address] Platelet mean volume (Bld) [Entitic vol] 10.6 fL Normal 6.2-12.0 [facility] Comment on above: Performed By: #### L 503.0106, L501.5200, L501.9520, L500.4100, L500.4050, L100.0100, L506.1001 ####[facility] [address] [place], [address] Platelets (Bld) [#/Vol] 302 10*3/uL Normal 150-450 [facility] Comment on above: Performed By: #### L 503.0106, L501.5200, L501.9520, L500.4100, L500.4050, L100.0100, L506.1001 ####[facility] [address] [place], [address] RBC (Bld) [#/Vol] 4.78 10*6/uL Normal 4.2-5.4 [facility] Comment on above: Performed By: #### L 503.0106, L501.5200, L501.9520, L500.4100, L500.4050, L100.0100, L506.1001 ####[facility] [address] [place], [address] RDW SD 38.5 fl Normal 35.1-43.9 [facility] Comment on above: Performed By: #### L 503.0106, L501.5200, L501.9520, L500.4100, L500.4050, L100.0100, L506.1001 ####[facility] [address] [place], [place], [id number] WBC (Bld) [#/Vol] 11.8 10*3/uL High 4.4-11.0 [facility] Comment on above: Performed By: #### L 503.0106, L501.5200, L501.9520, L500.4100, L500.4050, L100.0100, L506.1001 ####[facility] [address] [place], [place], [address] Comprehensive Metabolic Prof [facility] 07-05-2025 Albumin [Mass/Vol] 4.2 g/dL Normal 3.4-4.8 [facility] Comment on above: Performed By: #### L 503.0106, L501.5200, L501.9520, L500.4100, L500.4050, L100.0100, L506.1001 ####[facility] [address] [address] [place], [place], [id number] Albumin/Globulin [Mass ratio] 1.3 {ratio} Normal 0.9-2.4 [facility] Comment on above: Performed By: #### L 503.0106, L501.5200, L501.9520, L500.4100, L500.4050, L100.0100, L506.1001 ####[facility] [address] [place], [address] ALK PHOS 96 U/L Normal 35-104 [facility] Comment on above: Performed By: #### L 503.0106, L501.5200, L501.9520, L500.4100, L500.4050, L100.0100, L506.1001 ####[facility] [address] [place], [address] ALT [Catalytic activity/Vol] 9 U/L Normal <=34 [facility] Comment on above: Performed By: #### L 503.0106, L501.5200, L501.9520, L500.4100, L500.4050, L100.0100, L506.1001 ####[facility] [address] [place], [place], [id number] AST [Catalytic activity/Vol] 17 U/L Normal <=31 [facility] Comment on above: Performed By: #### L 503.0106, L501.5200, L501.9520, L500.4100, L500.4050, L100.0100, L506.1001 ####[facility] [address] [place], [place], [id number] Bilirubin [Mass/Vol] 0.68 mg/dL Normal 0.00-1.30 [facility] Comment on above: Performed By: #### L 503.0106, L501.5200, L501.9520, L500.4100, L500.4050, L100.0100, L506.1001 ####[facility] [address] [place], [address] BUN/CRE 21.5 RATIO High 10-20 [facility] Comment on above: Performed By: #### L 503.0106, L501.5200, L501.9520, L500.4100, L500.4050, L100.0100, L506.1001 ####[facility] [address] [place], [address] Calcium [Mass/Vol] 10.2 mg/dL Normal 7.6-11.0 [facility] Comment on above: Performed By: #### L 503.0106, L501.5200, L501.9520, L500.4100, L500.4050, L100.0100, L506.1001 ####[facility] [address] [place], [address] Chloride [Moles/Vol] 95 mmol/L Low 98-108 [facility] Comment on above: Performed By: #### L 503.0106, L501.5200, L501.9520, L500.4100, L500.4050, L100.0100, L506.1001 ####[facility] [address] [place], [address] CO2 [Moles/Vol] 24.7 mmol/L Normal 21.0-32.0 [facility] Comment on above: Performed By: #### L 503.0106, L501.5200, L501.9520, L500.4100, L500.4050, L100.0100, L506.1001 ####[facility] [address] [place], [address] Creatinine [Mass/Vol] 0.64 mg/dL Low 0.70-1.20 [facility] Comment on above: Performed By: #### L 503.0106, L501.5200, L501.9520, L500.4100, L500.4050, L100.0100, L506.1001 ####[facility] [address] [place], [address] GAP 16 High 5-15 [facility] Comment on above: Performed By: #### L 503.0106, L501.5200, L501.9520, L500.4100, L500.4050, L100.0100, L506.1001 ####[facility] [address] [place], [address] GFR/1.73 sq M.predicted among non-blacks MDRD (S/P/Bld) [Vol rate/Area] 94 mL/min/{1.73_m2} Normal >60 [facility] Comment on above: Result Comment: mL/m in/1.73m2 CKD-EPI Creatinine Equation (2020) Performed By: #### L 503.0106, L501.5200, L501.9520, L500.4100, L500.4050, L100.0100, L506.1001 ####[facility] [address] [place], [address] Globulin (S) [Mass/Vol] 3.2 g/dL Normal 2.2-4.2 [facility] Comment on above: Performed By: #### L 503.0106, L501.5200, L501.9520, L500.4100, L500.4050, L100.0100, L506.1001 ####[facility] [address] [place], [address] Glucose [Mass/Vol] 102 mg/dL High 70-99 [facility] Comment on above: Performed By: #### L 503.0106, L501.5200, L501.9520, L500.4100, L500.4050, L100.0100, L506.1001 ####[facility] [address] [place], [address] Potassium [Moles/Vol] 3.7 mmol/L Normal 3.3-5.1 [facility] Comment on above: Performed By: #### L 503.0106, L501.5200, L501.9520, L500.4100, L500.4050, L100.0100, L506.1001 ####[facility] [address] [place], [address] Sodium [Moles/Vol] 136 mmol/L Normal 133-145 [facility] Comment on above: Performed By: #### L 503.0106, L501.5200, L501.9520, L500.4100, L500.4050, L100.0100, L506.1001 ####[facility] [address] [place], [address] T PROT 7.4 g/dL Normal 5.9-8.4 [facility] Comment on above: Performed By: #### L 503.0106, L501.5200, L501.9520, L500.4100, L500.4050, L100.0100, L506.1001 ####[facility] [address] [place], [address] Urea nitrogen [Mass/Vol] 14 mg/dL Normal 4-19 [facility] Comment on above: Performed By: #### L 503.0106, L501.5200, L501.9520, L500.4100, L500.4050, L100.0100, L506.1001 ####[facility] [address] [place], [address] Lipid Profileon 07-05-2025 CHOL:HDL 3.66 Normal [facility] Comment on above: Performed By: #### L 503.0106, L501.5200, L501.9520, L500.4100, L500.4050, L100.0100, L506.1001 ####[facility] [address] [place], [address] Cholesterol [Mass/Vol] 169 mg/dL Normal <=200 [facility] Comment on above: Result Comment: Chol esterol level, Desirable <200 mg/dL Borderline high cholesterol 200-239 mg/dL High cholesterol >=240 mg/dL Recommendations of the NCEP Adult Treatment Panel for the following risk-cutoff thresholds for the [place] population. Performed By: #### L 503.0106, L501.5200, L501.9520, L500.4100, L500.4050, L100.0100, L506.1001 ####[facility] [address] [place], [address] Cholesterol in HDL [Mass/Vol] 46 mg/dL Normal [facility] Comment on above: Result Comment: Jodi onal Cholesterol Education Program (NCEP) guidelines: <40 mg/dL: Low HDL-cholesterol (major risk factor for CHD) >= 60 mg/dL: High HDL-cholesterol (negative risk factor for CHD) HDL-cholesterol is affected by a number of factors, e.g. smoking, exercise, hormones, sex and age. Performed By: #### L 503.0106, L501.5200, L501.9520, L500.4100, L500.4050, L100.0100, L506.1001 ####[facility] [address] [place], [address] Cholesterol in LDL [Mass/Vol] 105 mg/dL Normal [facility] Comment on above: Result Comment: Bord lpcpue=739-762 mg/dL Higher Fmds=760 mg/dL or greater Friedwald Equation for LDL-C Performed By: #### L 503.0106, L501.5200, L501.9520, L500.4100, L500.4050, L100.0100, L506.1001 ####[facility] [address] [place], [address] Cholesterol in VLDL [Mass/Vol] 18 mg/dL Normal 5-40 [facility] Comment on above: Performed By: #### L 503.0106, L501.5200, L501.9520, L500.4100, L500.4050, L100.0100, L506.1001 ####[facility] [address] [place], [address] Triglyceride [Mass/Vol] 90 mg/dL Normal [facility] Comment on above: Result Comment: The drugs N-Acetylcysteine and Metamizole may falsely depress this assay. Normal range: <150 mg/dL Borderline High: 150-199 mg/dL High: 200-499 mg/dL Very High: >500 mg/dL Performed By: #### L 503.0106, L501.5200, L501.9520, L500.4100, L500.4050, L100.0100, L506.1001 ####[facility] [address] [place], [address] Magnesiumon 07-05-2025 Magnesium [Mass/Vol] 2.0 mg/dL Normal 1.5-2.2 [facility] Comment on above: Performed By: #### L 503.0106, L501.5200, L501.9520, L500.4100, L500.4050, L100.0100, L506.1001 ####[facility] [address] [place], [address] Thyroid Stim Hormone (TSH)on 07-05-2025 TSH 1.800 uIU/mL Normal 0.300-4.200 [facility] Comment on above: Performed By: #### L 503.0106, L501.5200, L501.9520, L500.4100, L500.4050, L100.0100, L506.1001 ####[facility] [address] [place], [address] Vitamin B12on 07-05-2025 Cobalamin (Vitamin B12) [Mass/Vol] 589 pg/mL Normal 180-914 [facility] Comment on above: Performed By: #### L 503.0106, L501.5200, L501.9520, L500.4100, L500.4050, L100.0100, L506.1001 ####[facility] [address] [place], [address] Vitamin D,25 Hydroxyon 07-05 Vitamin D 25-OH 65.0 ng/mL Normal 30-100 [facility] Comment on above: Result Comment: Kierra min D Status Deficiency: <20 ng/mL (50nmol/L) Insufficiency: 20-30 ng/mL (50-75 nmol/L) Sufficiency: 30-100 ng/mL (75-250 nmol/L) Toxicity: >100 ng/mL (>250 nmol/L) Performed By: #### L 503.0106, L501.5200, L501.9520, L500.4100, L500.4050, L100.0100, L506.1001 ####[facility] [address] [place], [address] MR/Blake 02-16-2025 MR/[facility] [address] [place] [address] OFFICE VISIT Date of Service: 02/16/25 MR#: [id number] Acct: [id number] Name: CHRISTINA MACIAS Elisa Rep #: [id number] : 1955 Provider: SURESH Corey Age/Sex: 69/F Location: [facility] Status: Signed Intake Vital Signs 01/27/25 14:22 02/16/25 08:39 Height 5 ft 6 in Weight: 154 lb 2 oz 157 lb BMI 24.8 BP 136/71 H 143/78 H Blood Pressure Location Rt brachial Lt brachial Position Sitting Sitting Respiration 16 16 Pulse 56 L 72 Pulse Source Monitor Monitor Temp 98.2 F 97.5 F L Temp Source Temporal Temporal Pulse Oximetry (%) 98 98 Oxygen Delivery Method room air room air Intake Visit Reasons: Varicose veins Chief Complaint: establish care Is patient in pain?: No Allergies Seasonal Allergies: Uncoded Allergy (Intermediate, Verified 02/16/25 08:41) Itching Medications ???Medication ???Instructions ???Recorded ???Confirmed ???Type cetirizine 10 mg capsule (Zyrtec) 10 mg PO DAILY 08/07/22 02/16/25 History multivitamin 1 tab PO DAILY 08/07/22 02/16/25 H istory probiotic PO 08/07/22 02/16/25 History vitamin c PO 08/07/22 02/16/25 History calcium PO 2XW 09/10/23 02/16/25 History aspirin 81 mg tablet,delayed 81 mg PO QDAY 09/15/24 02/16/25 Hi story release chlorthalidone 25 mg tablet 25 mg PO DAILY #90 tabs 09/15/24 0 02/16/25 Rx metoprolol succinate 25 mg 25 mg PO QDAY 01/27/25 02/16/25 Hi story tablet,extended release 24 hr Is last menstrual period known: No Post menopausal: Yes Patient : No Have you fallen in the past year?: No PFSH Medical History Diverticulitis Vision problems GERD (gastroesophageal reflux disease) Pneumonia Irritable bowel syndrome Migraine Gastrointestinal problem Gallstones Carpal tunnel syndrome Cataracts, both eyes UTI (urinary tract infection) Back problem Arthritis Hypertension Surgical History Enlarged tonsils and adenoids Hx of cholecystectomy Hx of arthroscopic knee surgery Status post total hip replacement, right Family History Brother Alcoholism Hypertension Mother Cancer lung Hypertension Grandmother Arthritis Hypertension Grandfather Arthritis Hypertension Father Myocardial infarction at 46 years old Hypertension Other Diabetes Diverticular disease Heart disease Social History adopted: No household members: spouse housing: apartment current occupational status: retired Smoking Status: Former smoker alcohol intake: never details: occasional beer or ryann substance use type: does not use well-balanced diet: daily or most days caffeine: Yes eating out: 1-3 times/week during the past year weight has: remained stable what type of physical activity do you participate in: walking aleksey/mosque: Sabianism seatbelt use: always do you feel safe at home: Yes HPI HPI HPI: CHRISTINA MACIAS, is a 69 F who presents to the office today for evaluation of L lower leg varicose veins. She has had a cluster of left leg varicose veins for several years; over the last few weeks she'd been having increased discomfort through this area. She realized in the last few days that the hem on her workout nas leggins were lying right over these varicosities; she stopped wearing these pants and her symptoms have completely resolved. At present, she does not have any persistent pain, itching, heaviness, fatigue, lower extremity edema. She has not had any episodes of phlebitis and no history of DVT/PE. She is very active, aims for 8-10,000 steps a day; walks 3-4 miles a few times a week. She elevates her legs when resting. ROS General General: No weight change, appetite, fatigue, colon cancer, breast cancer or weakness HEENT HEENT: No difficulty swallowing, eye injury, eye surgery, swollen glands or hoarseness Endo Endocrine: No thyroid disease, diabetes mellitus, thyroid cancer, Hair loss, heat intolerance or cold intolerance Skin Skin: No rash or changing moles Musc Musculoskeletal: Yes back problems and arthritis; No rheumatoid arthritis, gout or joint pain Cardio Cardiovascular: Yes high blood pressure; No murmur, pacemaker, heart disease, atrial fibrillation, heart attack, heart stent, palpitations, shortness of breath with exertion or chest pain Psych Psychiatric: No depression, anxiety or hearing voices Resp Respiratory: No shortness of breath, No sleep apnea, No cough, No COPD, No asthma, No emphysema and No wheezing Gastro Gastrointestinal: No abdominal pain, No nausea or vomiti (more content not included)... Normal [facility] MR/BMS.[facility] 01-27-2025 MR/BMS.[facility] [address] [place] [address] OFFICE VISIT Date of Service: 01/27/25 MR#: [id number] Acct: [id number] Name: CHRISTINA MACIAS Rep #: [id number] : 1955 Provider: Dr. Andrew alfaro MD Age/Sex: 69/F Location: [facility] Status: Signed Intake Vital Signs 12/13/24 21:01 01/27/25 14:22 Height 5 ft 6 in 5 ft 6 in Weight: 154 lb 2 oz BMI 24.8 BP 136/71 H Blood Pressure Location Rt brachial Position Sitting Respiration 16 Pulse 56 L Pulse Source Monitor Temp 98.2 F Temp Source Temporal Pulse Oximetry (%) 98 Oxygen Delivery Method room air Intake Visit Reasons: BP FU Chief Complaint: BP FU Professional Caster Required: No Accompanied by: Is patient in pain?: No Allergies Seasonal Allergies: Uncoded Allergy (Intermediate, Verified 01/27/25 14:11) Itching Medications ???Medication ???Instructions ???Recorded ???Confirmed ???Type cetirizine 10 mg capsule (Zyrtec) 10 mg PO DAILY 08/07/22 01/27/25 History multivitamin 1 tab PO DAILY 08/07/22 01/27/25 H istory probiotic PO 08/07/22 01/27/25 History vitamin c PO 08/07/22 01/27/25 History calcium PO 2XW 09/10/23 01/27/25 History aspirin 81 mg tablet,delayed 81 mg PO QDAY 09/15/24 01/27/25 Hi story release chlorthalidone 25 mg tablet 25 mg PO DAILY #90 tabs 09/15/24 0 01/27/25 Rx metoprolol succinate 25 mg 25 mg PO QDAY 01/27/25 History tablet,extended release 24 hr Have you fallen in the past year?: No PFSH Medical History Diverticulitis Vision problems GERD (gastroesophageal reflux disease) Pneumonia Irritable bowel syndrome Migraine Gastrointestinal problem Gallstones Carpal tunnel syndrome Cataracts, both eyes UTI (urinary tract infection) Back problem Arthritis Hypertension Surgical History Enlarged tonsils and adenoids Hx of cholecystectomy Hx of arthroscopic knee surgery Status post total hip replacement, right Family History Brother Alcoholism Hypertension Mother Cancer lung Hypertension Grandmother Arthritis Hypertension Grandfather Arthritis Hypertension Father Myocardial infarction at 46 years old Hypertension Other Diabetes Diverticular disease Heart disease Social History adopted: No household members: spouse housing: apartment current occupational status: retired Smoking Status: Former smoker alcohol intake: never details: occasional beer or ryann substance use type: does not use well-balanced diet: daily or most days caffeine: Yes eating out: 1-3 times/week during the past year weight has: remained stable what type of physical activity do you participate in: walking aleksey/mosque: Sabianism seatbelt use: always do you feel safe at home: Yes HPI HPI Chief Complaint: BP FU Details: CHRISTINA MACIAS, is a 69 F who presents to the office today for short-term follow-up, hypertension. She is currently on aspirin, metoprolol 25 mg daily and chlorthalidone. She has been losing weight through dietary means. She is really gotten even more strict with carbohydrate intake. She is feeling much better. Actually feels quite well she states. As she was doing that, her blood pressure has come down quite a bit. We made some recent adjustments in blood pressure medications. All seems stable. Her blood pressure today is excellent. Overall has been doing quite well that way. She is not experiencing chest pain, chest tightness, shortness of breath wheeze cough or congestion. No new specific complaints. Due to the blood pressure issues at last visit, we did some additional lab studies to the also secondary. Those labs returned essentially unremarkable. Review of systems per chart. Physical exam. Vital signs on chart. Sclera are clear. No cervical or supraclavicular lymph nodes enlarged or tender. No clear thyromegaly. No thyroid nodules readily palpable. Lungs are without wheeze, rhonchi, rales. No E/A changes are heard. Heart is regular. Not tachycardic. No clear murmur, rub, or gallop is identified. The abdomen is soft. Bowel sounds are present. Nontender nondistended abdomen.No significant leg edema. Cranial nerve examination 2 through 12 are grossly unremarkable nonlateralizing. ROS Const Constitutional: No body ache, chills, excessive sweating, fatigue, fever(s), frequent falls, headache(s), snoring, weakness or change in appetite Eyes Eyes: No blurry vision, change in vision, eye pain or Light sensitivity ENT ENT: No abnormal hearing, ear or mastoid pain, tinnitus, nasal congestion, headache(s), neck pain or (more content not included)... Normal [facility] Renin/Aldosterone Activityon 01-26-2025 ALD/RENIN RATIO 2.5 Normal 0.0-30.0 [facility] Comment on above: Order Comment: Test( s) [id number]-Lceubgtxjoa; 339884-Lvfkr Activity, Plasma was developed and its performance characteristics determined by [facility]. It has not been cleared or approved by the Food and Drug Administration. Result Comment: Unit s: ng/dL per ng/mL/hr Performed at: [address] [id number] [employer]: Skylar Gore MD, Phone: [phone] Performed By: #### L 3300.1050, L509.1000, L509.6001, L501.5200, L500.4100 #### [facility] [address] [place], [address] ALDOSTERONE,S 21.0 ng/dL Normal 0.0-30.0 [facility] Comment on above: Order Comment: Test( s) [id number]-Whoakyvajwb; 102875-Lumlm Activity, Plasma was developed and its performance characteristics determined by [facility]. It has not been cleared or approved by the Food and Drug Administration. Performed By: #### L 3300.1050, L509.1000, L509.6001, L501.5200, L500.4100 #### [facility] [address] [place], [address] RENIN, PLASMA 8.512 ng/mL/hr High 0.167-5.380 [facility] Comment on above: Order Comment: Test( s) 405859-Wlaeylitaly; 936385-Ukscs Activity, Plasma was developed and its performance characteristics determined by [facility]. It has not been cleared or approved by the Food and Drug Administration. Performed By: #### L 3300.1050, L509.1000, L509.6001, L501.5200, L500.4100 #### [facility] [address] [place], [address] Aldosterone, serumOrdered By : Andrew Billingsley on 01-20-2025 Aldosterone 21.0 ng/dL 0.0-30.0 [facility] Aldosterone/Renin (P) [Ratio ]Ordered By: Andrew Billingsley on 01-20-2025 Aldosterone/Renin Ratio 2.5 0.0-30.[address] [facility] Comment on above: Units: ng/dL per ng/ mL/hrPerformed at: - [facility] [place], [place] [id number] Director: Skylar Gore MD, Phone: [phone] Calculated very low density lipoprotein (VLDL) cholesterol measurementOrdered By: Andrew Billingsley on 01-20-2025 VLDL Cholesterol 19 mg/dL 5-40 [facility] L509.6001on 01-20-2025 CORTISOL 12.10 ug/dL Normal 6.02-18.40 [facility] Comment on above: Performed By: #### L 3300.1050, L509.1000, L509.6001, L501.5200, L500.4100 #### [facility] [address] [place], [address] CORTISOL 11.50 ug/dL Normal 6.02-18.40 [facility] Comment on above: Performed By: #### L 509.6001 ####[facility] [address] [place], [address] LDL calc ser/plasOrdered By: Andrew Billingsley on 01-20-2025 LDL Cholesterol, Calculated 113 mg/dL [facility] Comment on above: Fbjedvxnln=525-176 m g/dL & Higher Zwgi=883 mg/dL or greater Lipid Profileon 01-20-2025 CHOL:HDL 3.29 Normal [facility] Comment on above: Performed By: #### L 3300.1050, L509.1000, L509.6001, L501.5200, L500.4100 #### [facility] [address] [place], [address] Cholesterol [Mass/Vol] 190 mg/dL Normal <=200 [facility] Comment on above: Result Comment: Chol esterol level, Desirable <200 mg/dL Borderline high cholesterol 200-239 mg/dL High cholesterol >=240 mg/dL Recommendations of the NCEP Adult Treatment Panel for the following risk-cutoff thresholds for the [place] population. Performed By: #### L 3300.1050, L509.1000, L509.6001, L501.5200, L500.4100 #### [facility] [address] [place], [address] Cholesterol in HDL [Mass/Vol] 58 mg/dL Normal [facility] Comment on above: Result Comment: Jodi onal Cholesterol Education Program (NCEP) guidelines: <40 mg/dL: Low HDL-cholesterol (major risk factor for CHD) >= 60 mg/dL: High HDL-cholesterol (negative risk factor for CHD) HDL-cholesterol is affected by a number of factors, e.g. smoking, exercise, hormones, sex and age. Performed By: #### L 3300.1050, L509.1000, L509.6001, L501.5200, L500.4100 #### [facility] [address] [place], [address] Cholesterol in LDL [Mass/Vol] 113 mg/dL Normal [facility] Comment on above: Result Comment: Bord gcigwx=467-148 mg/dL Higher Drxu=125 mg/dL or greater Performed By: #### L 3300.1050, L509.1000, L509.6001, L501.5200, L500.4100 #### [facility] [address] [place], [address] Cholesterol in VLDL [Mass/Vol] 19 mg/dL Normal 5-40 [facility] Comment on above: Performed By: #### L 3300.1050, L509.1000, L509.6001, L501.5200, L500.4100 #### [facility] [address] [place], [address] Triglyceride [Mass/Vol] 95 mg/dL Normal [facility] Comment on above: Result Comment: The drugs N-Acetylcysteine and Metamizole may falsely depress this assay. Normal range: <150 mg/dL Borderline High: 150-199 mg/dL High: 200-499 mg/dL Very High: >500 mg/dL Performed By: #### L 3300.1050, L509.1000, L509.6001, L501.5200, L500.4100 #### [facility] [address] [place], [address] Magnesiumon 01-20-2025 Magnesium [Mass/Vol] 1.9 mg/dL Normal 1.5-2.2 [facility] Comment on above: Performed By: #### L 3300.1050, L509.1000, L509.6001, L501.5200, L500.4100 #### [facility] [address] [place], [address] Magnesium (Unsp spec) [Mass/ Vol]Ordered By: Andrew Billingsley on 01-20-2025 Magnesium [Mass/Vol] 1.9 mg/dL 1.5-2.2 [facility] No Panel InformationOrdered By: Andrew Billingsley on 01-20-2025 Cortisol AM Sample 11.50 ug/dL 6.02-18.40 [facility] PTH intactOrdered By: Andrew Billingsley on 01-20-2025 Parathyroid Hormone (Intact) 35 pg/mL [facility] PTHINon 01-20-2025 PTH 35 pg/mL Normal [facility] Comment on above: Performed By: #### L 3300.1050, L509.1000, L509.6001, L501.5200, L500.4100 #### [facility] [address] [place], [address] Renin (P) [Catalytic activit y/Vol]Ordered By: Andrew Billingsley on 01-20-2025 Renin 8.512 ng/mL/hr High 0.167-5.380 [facility] Screening total cholesterol/ high density lipoprotein (HDL) cholesterol ratioOrdered By: Andrew Billingsley on 03-13-2025 Cholesterol.total/Doreen sterol in HDL [Mass ratio] 3.29 {ratio} [facility] Serum or plasma cholesterol in HDL measurement (mass/volume)Ordered By: Andrew Billingsley on 01-20-2025 Cholesterol in HDL [Mass/Vol] 58 mg/dL >40 [facility] Comment on above: National Cholesterol Education Program (NCEP) guidelines:<40 mg/dL: Low HDL-cholesterol (major risk factor for CHD)>= 60 mg/dL: High HDL-cholesterol (negative risk factor for CHD)HDL-cholesterol is affected by a number of factors, e.g. smoking, exercise, hormones, sex and age. Serum or plasma cholesterol measurement (mass/volume)Ordered By: Andrew Billingsley on 01-20-2025 Cholesterol [Mass/Vol] 190 mg/dL <201 [facility] Comment on above: Cholesterol level, D esirable <200 mg/dLBorderline high cholesterol 200-239 mg/dLHigh cholesterol >=240 mg/dLRecommendations of the NCEP Adult Treatment Panel for the following risk-cutoff thresholds for the [place] population. Triglycerides measurementOrd ered By: Andrew Billingsley on 01-20-2025 Triglyceride [Mass/Vol] 95 mg/dL <[address] [facility] Comment on above: The drugs N-Acetylcy steine and Metamizole may falsely depress this assay. Normal range: <150 mg/dLBorderline High: 150-199 mg/dLHigh: 200-499 mg/dLVery High: >500 mg/dL Emergency Department Summary on 12-14-2024 Emergency Department Summary [facility] Medical Records Department [address] [place] [address] Emergency Department Summary 12/14/24 MR#: [id number] Acct: [id number] Name: CHRISTINA MACIAS Rep #: [id number] : 1955 68 From: Thomas Quintanilla DO PCP: Dr. Andrew Billingsley MD Status:REG ER Location: ED HPI History of Present Illness Chief Complaint: Headache PFSH PFSH Medical History Diverticulitis Vision problems GERD (gastroesophageal reflux disease) Pneumonia Irritable bowel syndrome Migraine Gastrointestinal problem Gallstones Carpal tunnel syndrome Cataracts, both eyes UTI (urinary tract infection) Back problem Arthritis Hypertension Home Medications ???Medication ???Instructions ???Recorded ???Last Taken ???Type cetirizine 10 mg capsule (Zyrtec) 10 mg PO DAILY 08/07/22 Unknown H istory multivitamin 1 tab PO DAILY 08/07/22 Unknown Hi story probiotic PO 08/07/22 Unknown History vitamin c PO 08/07/22 Unknown History calcium PO 2XW 09/10/23 Unknown History aspirin 81 mg tablet,delayed 81 mg PO QDAY 09/15/24 Unknown His tory release chlorthalidone 25 mg tablet 25 mg PO DAILY #90 tabs 09/15/24 U nknown Rx amlodipine 5 mg tablet 5 mg PO DAILY #90 tabs 12/02/24 Un known Rx metoprolol succinate 25 mg 25 mg PO BID #180 tabs 12/02/24 Un known Rx tablet,extended release 24 hr Allergy/AdvReac Type Severity Reaction Status Date / Time Seasonal Allergies: Uncoded Allergy Intermediate Itching Verified 12/13/24 21:03 Family History Brother Alcoholism Hypertension Mother Cancer lung Hypertension Grandmother Arthritis Hypertension Grandfather Arthritis Hypertension Father Myocardial infarction at 46 years old Hypertension Other Diabetes Diverticular disease Heart disease Surgical History Enlarged tonsils and adenoids Hx of cholecystectomy Hx of arthroscopic knee surgery Status post total hip replacement, right Social History (Updated 09/15/24 @ 13:24 by Debra Damian RN) adopted: No household members: spouse housing: apartment current occupational status: retired Smoking Status: Former smoker alcohol intake: never details: occasional beer or ryann substance use type: does not use well-balanced diet: daily or most days caffeine: Yes eating out: 1-3 times/week during the past year weight has: remained stable what type of physical activity do you participate in: walking aleksey/mosque: Sabianism seatbelt use: always do you feel safe at home: Yes EXAM Physical Exam Const Vital Signs: 12/13/24 21:01 12/13/24 23:01 Temperature 98.2 F Temperature Source Oral Pulse Rate 62 55 L Respiratory Rate 16 14 Blood Pressure 156/79 H 106/67 Blood Pressure Mean 104 80 Pulse Ox 98 96 Oxygen Delivery Method Room Air Room Air MDM MDM History Record Review Discussion w/independent historian: Patient and Significant other Lab Data Attestation: I reviewed the patient's lab results. Labs: Laboratory Results - last 24 hr 12/13/24 22:58 WBC 11.0 RBC 5.18 Hgb 15.4 H Hct 43.9 MCV 84.7 MCH 29.7 MCHC 35.1 RDW Std Deviation 38.1 RDW Coeff of Sylvain 12.6 Plt Count 260 MPV 10.4 Immature Gran % (Auto) 0.300 Neut % (Auto) 63.2 Lymph % (Auto) 24.4 Preble % (Auto) 8.9 Eos % (Auto) 2.5 Baso % (Auto) 0.7 Absolute Neuts (auto) 6.9 Absolute Lymphs (auto) 2.67 Nucleated RBC % 0 Sodium 135 L Potassium 3.1 L Chloride 95 L Carbon Dioxide 31.0 Anion Gap 9 BUN 19 H Creatinine 0.76 Estim Creat Clear Calc 67.12 Est GFR (MDRD) Af Amer 97 Est GFR (MDRD) Non-Af 80 BUN/Creatinine Ratio 25.1 H Glucose 115 H Calcium 10.2 H Radiography Diagnostic Testing: Clinical Impression(s) from Imaging Studies Brain CT 12/13/24 22:50 IMPRESSION: No acute intracranial process. One or more dose reduction techniques were used (e.g., Automated exposure control, adjustment of the mA and/or kV according to patient size, use of iterative reconstruction technique). Reading Location: [facility] Discharge Plan Triage Chief Complaint: Headache ED Provider: Thomas Quintanilla Dx/Rx/DC Orders Clinical Impression: Accelerated hypertension, Cephalgia Instructions: Controlling High Blood Pressure, ED Headache Unspecified Prescriptions: No Action vitamin c PO multivitamin Tablet 1 tab PO DAILY probiotic PO Zyrtec 10 mg capsule 10 mg PO DAILY calcium PO 2XW chlorthalidone 25 mg tablet 25 mg PO DAILY Qty: 90 (more content not included)... Normal [facility] 12 Lead EKGon 12-13-2024 12 Lead EKG [facility] Cardiovascular Services [address] [place] [address] 12 Lead EKG 12/13/24 2311 MR#: [id number] Acct: [id number] Name: CHRISTINA MACIAS Rep #: [id number] : 1955 68 From: Yonis Perkins MD Attending Dr: Status: DEP ER Ordering Dr: Thomas Quintanilla DO Date: 12/13/24 Location: ED Sex: F C Admitted: Test Reason : DYSRHYTHMIA Blood Pressure : */* mmHG Vent. Rate : 52 BPM Atrial Rate : 52 BPM P-R Int : 172 ms QRS Dur : 92 ms QT Int : 490 ms P-R-T Axes : 75 37 77 degrees QTcB Int : 455 ms Sinus bradycardia Otherwise normal ECG Confirmed by RADHA DUQUE, YONIS ([id number]), general utility worker RAFAELA MOREL ([id number]) on 12/14/2024 8:56:19 AM Referred By: Confirmed By: YONIS PERKINS MD 12/14/24 0856 Date Yonis Perkins MD CC: Dr. Andrew Billingsley MD; Thomas Quintanilla DO Signed Normal [facility] Absolute neutrophil countOrd ered By: Thomas Quintanilla on 12-13-2024 Neutrophils (Bld) [#/Vol] 6.9 10*3/uL 2.0-7.7 [facility] Basic Metabolic Profile (BMP )on 12-13-2024 BUN/CRE 25.1 RATIO High 10-20 [facility] Comment on above: Performed By: #### L 100.0100, L500.2500 ####[facility] [address] [place], [address] CA,Total 10.2 mg/dL High 8.5-10.1 [facility] Comment on above: Performed By: #### L 100.0100, L500.2500 ####[facility] [address] [place], [address] Chloride [Moles/Vol] 95 mmol/L Low 98-107 [facility] Comment on above: Performed By: #### L 100.0100, L500.2500 ####[facility] [address] [place], [address] CO2 [Moles/Vol] 31.0 mmol/L Normal 21.0-32.0 [facility] Comment on above: Performed By: #### L 100.0100, L500.2500 ####[facility] [address] [place], [address] Creatinine [Mass/Vol] 0.76 mg/dL Normal 0.55-1.02 [facility] Comment on above: Result Comment: The validity of the calculated GFR GFRAA in patients over 70 years has not been determined. Clinical correlation is essential. Performed By: #### L 100.0100, L500.2500 ####[facility] [address] [place], [address] ECRCL 67.12 ml/min Normal [facility] Comment on above: Performed By: #### L 100.0100, L500.2500 ####[facility] [address] [place], [address] EST GFR - AA 97 mL/min Normal >60 [facility] Comment on above: Result Comment: Afri can [place] GFR Calc Performed By: #### L 100.0100, L500.2500 ####[facility] [address] [place], [address] GAP 9 Normal 5-15 [facility] Comment on above: Performed By: #### L 100.0100, L500.2500 ####[facility] [address] [place], [address] GFR/1.73 sq M.predicted among non-blacks MDRD (S/P/Bld) [Vol rate/Area] 80 mL/min/{1.73_m2} Normal >60 [facility] Comment on above: Result Comment: Non- GFR Calc Performed By: #### L 100.0100, L500.2500 ####[facility] [address] [place], [address] Glucose [Mass/Vol] 115 mg/dL High 74-106 [facility] Comment on above: Result Comment: Fast ing Glucose result from 100 to 125 mg/dL suggests IMPAIRED HOMEOSTASIS per A.D.A. criteria. Performed By: #### L 100.0100, L500.2500 ####[facility] [address] [place], [address] Potassium [Moles/Vol] 3.1 mmol/L Low 3.5-5.1 [facility] Comment on above: Performed By: #### L 100.0100, L500.2500 ####[facility] [address] [place], [address] Sodium [Moles/Vol] 135 mmol/L Low 136-145 [facility] Comment on above: Performed By: #### L 100.0100, L500.2500 ####[facility] [address] [place], [address] Urea nitrogen [Mass/Vol] 19 mg/dL High 7-18 [facility] Comment on above: Performed By: #### L 100.0100, L500.2500 ####[facility] [address] [place], [address] Basophil percentageOrdered B y: Thomas Quintanilla on 12-13-2024 Basophils/100 WBC (Bld) 0.7 % 0-[address] [facility] Blood urea nitrogen (BUN)/cr eatinine ratioOrdered By: Thomas Quintanilla on 12-13-2024 Urea nitrogen/Creatinine [Mass ratio] 25.1 mg/mg High 10-20 [facility] Brain/Head without Contrasto n 12-13-2024 Brain/Head without Contrast [facility] Imaging Services [address] [place], [place] [address] Brain/Head without Contrast MR#: [id number] Acct: [id number] Name: CHRISTINA MACIAS Rep #: [id number] : 1955 F 68 From: Eamon Martin DO PCP: Dr. Andrew Billingsley MD Status: [facility] ER Study: Brain/Head without Contrast Date of Exam: 02/01 Exam# [id number] Ordering Dr: Thomas Quintanilla DO PROCEDURE: BRAIN/HEAD WITHOUT CONTRAST REASON FOR EXAM: Hypertension, migraines. TECHNIQUE: Multiple, axial CT images of the brain are obtained without intravenous contrast. Coronal and sagittal 2D reformatted images were provided for better evaluation. COMPARISON: None. FINDINGS: Brain volume is age appropriate. The ventricles are not effaced or dilated. No midline shift, mass effect, or extra-axial fluid collections are identified. No acute intracranial hemorrhage, mass, or acute territorial infarction is identified per CT criteria. Combs-white junction is preserved. Calvarium is intact. Visualized paranasal sinuses are clear. Nasal septum is deviated to the right. CT/Brain/Head without Contrast IMPRESSION: No acute intracranial process. One or more dose reduction techniques were used (e.g., Automated exposure control, adjustment of the mA and/or kV according to patient size, use of iterative reconstruction technique). Reading Location: [facility] CC: Dr. Andrew Billingsley MD; Thomas Quintanilla DO Depot Agent: Signed Normal [facility] CBC W/Diff, Automatedon Absolute Lymph 2.67 X10 3/uL Normal 0.83-4.51 [facility] Comment on above: Performed By: #### L 100.0100, L500.2500 #### [facility] [address] [place], [place], [address] Absolute Neut 6.9 X10 3/uL Normal 2.0-7.7 [facility] Comment on above: Performed By: #### L 100.0100, L500.2500 #### [facility] [address] [place], [address] Basophils/100 WBC (Bld) 0.7 % Normal 0-[address] [facility] Comment on above: Performed By: #### L 100.0100, L500.2500 #### [facility] [address] [place], [address] Eosinophils/100 WBC (Bld) 2.5 % Normal 0-5 [facility] Comment on above: Performed By: #### L 100.0100, L500.2500 #### [facility] [address] [place], [address] Erythrocyte distribution width (RBC) [Ratio] 12.6 % Normal 11.6-14.6 [facility] Comment on above: Performed By: #### L 100.0100, L500.2500 #### [facility] [address] [place], [address] Hematocrit (Bld) [Volume fraction] 43.9 % Normal 37-47 [facility] Comment on above: Performed By: #### L 100.0100, L500.2500 #### [facility] [address] [place], [address] Hemoglobin (Bld) [Mass/Vol] 15.4 g/dL High 12.0-15.0 [facility] Comment on above: Performed By: #### L 100.0100, L500.2500 #### [facility] [address] [place], [address] IG% 0.300 Normal 0.0-0.9 [facility] Comment on above: Result Comment: IG% - Immature Granulocytes (promyelocytes, myelocytes and metamyelocytes) > 1% indicates that a LEFT SHIFT is Present. Performed By: #### L 100.0100, L500.2500 #### [facility] [address] [place], [address] Lymphocytes/100 WBC (Bld) 24.4 % Normal 19-41 [facility] Comment on above: Performed By: #### L 100.0100, L500.2500 #### [facility] [address] [place], [address] MCH (RBC) [Entitic mass] 29.7 pg Normal 27.0-32.0 [facility] Comment on above: Performed By: #### L 100.0100, L500.2500 #### [facility] [address] [place], [address] MCHC (RBC) [Mass/Vol] 35.1 g/dL Normal 32-36 [facility] Comment on above: Performed By: #### L 100.0100, L500.2500 #### [facility] [address] [place], [address] MCV (RBC) [Entitic vol] 84.7 fL Normal 81-99 [facility] Comment on above: Performed By: #### L 100.0100, L500.2500 #### [facility] [address] [place], [address] Monocytes/100 WBC (Bld) 8.9 % Normal 0-10 [facility] Comment on above: Performed By: #### L 100.0100, L500.2500 #### [facility] [address] [place], [address] Neutrophils/100 WBC (Bld) 63.2 % Normal 47-70 [facility] Comment on above: Performed By: #### L 100.0100, L500.2500 #### [facility] [address] [place], [address] Nucleated RBC (Bld) [#/Vol] 0 10*3/uL Normal 0-5 [facility] Comment on above: Performed By: #### L 100.0100, L500.2500 #### [facility] [address] [place], [address] Platelet mean volume (Bld) [Entitic vol] 10.4 fL Normal 6.2-12.0 [facility] Comment on above: Performed By: #### L 100.0100, L500.2500 #### [facility] [address] [place], [address] Platelets (Bld) [#/Vol] 260 10*3/uL Normal 150-450 [facility] Comment on above: Performed By: #### L 100.0100, L500.2500 #### [facility] [address] [place], [address] RBC (Bld) [#/Vol] 5.18 10*6/uL Normal 4.2-5.4 [facility] Comment on above: Performed By: #### L 100.0100, L500.2500 #### [facility] [address] [place], [address] RDW SD 38.1 fl Normal 35.1-43.9 [facility] Comment on above: Performed By: #### L 100.0100, L500.2500 #### [facility] [address] [place], [address] WBC (Bld) [#/Vol] 11.0 10*3/uL Normal 4.4-11.0 [facility] Comment on above: Performed By: #### L 100.0100, L500.2500 #### [facility] [address] [place], [address] Carbon dioxide measurementOr dered By: Thomas Quintanilla on 12-13-2024 CO2 [Moles/Vol] 31.0 mmol/L 21.0-32.0 [facility] Chloride measurementOrdered By: Thomas Quintanilla on 12-13-2024 Chloride [Moles/Vol] 95 mmol/L Low 98-107 [facility] Eosinophil percentageOrdered By: Thomas Quintanilla on 12-13-2024 Eosinophils/100 WBC (Bld) 2.5 % 0-5 [facility] Erythrocyte distribution wid th ratioOrdered By: Thomas Quintanilla on 12-13-2024 Erythrocyte distribution width (RBC) [Ratio] 12.6 % 11.6-14.6 [facility] Erythrocyte distribution wid th standard deviationOrdered By: Thomas Quintanilla on 12-13-2024 Erythrocyte distribution width (RBC) [Entitic vol] 38.1 fL 35.1-43.9 [facility] Estimated glomerular filtrat ion rate (GFR) AmericanOrdered By: Thomas Quintanilla on 12-13-2024 Estimated GFR (MDRD) Amer 97 mL/min >60 [facility] Comment on above: GFR Calc Estimation of creatinine farida aranceOrdered By: Thomas Quintanilla on 12-13-2024 Estimated Creatinine Clearance Calc 67.12 ml/min [facility] Glomerular filtration rate ( GFR) estimationOrdered By: Thomas Quintanilla on 12-13-2024 Estimated GFR (MDRD) Non-Af Amer 80 mL/min >60 [facility] Comment on above: Non- GFR Calc Glucose measurementOrdered B y: Thomas Quintanilla on 12-13-2024 Glucose [Mass/Vol] 115 mg/dL High 74-106 [facility] Comment on above: Fasting Glucose resu lt from 100 to 125 mg/dL suggests IMPAIRED HOMEOSTASIS per A.D.A. criteria. Hematocrit Auto (Bld) [Volum e fraction]Ordered By: Thomas Quintanilla on 12-13-2024 Hematocrit (Bld) [Volume fraction] 43.9 % 37-47 [facility] Hemoglobin measurementOrdere d By: Thomas Quintanilla on 12-13-2024 Hemoglobin (Bld) [Mass/Vol] 15.4 g/dL High 12.0-15.0 [facility] Immature granulocytes/100 WB C Auto (Bld)Ordered By: Thomas Quitnanilla on 12-13-2024 Immature granulocytes/100 WBC (Bld) 0.300 % 0.0-0.9 [facility] Comment on above: IG% - Immature Granu locytes (promyelocytes, myelocytes and metamyelocytes) > 1% indicates that a LEFT SHIFT is Present. Lymphocytes Auto (Unsp spec) [#/Vol]Ordered By: Thomas Quintanilla on 12-13-2024 Lymphocytes (Bld) [#/Vol] 2.67 10*3/uL 0.83-4.51 [facility] Lymphocytes/100 WBC Auto (Un sp spec)Ordered By: Thomas Quintanilla on 12-13-2024 Lymphocytes/100 WBC (Bld) 24.4 % 19-41 [facility] MCV (mean corpuscular volume ) determinationOrdered By: Thomas Quintanilla on 12-13-2024 MCV (RBC) [Entitic vol] 84.7 fL 81-[address] [facility] Mean corpuscular hemoglobin (MCH) determinationOrdered By: Thomas Quintanilla on 12-13-2024 MCH (RBC) [Entitic mass] 29.7 pg 27.0-32.0 [facility] Mean corpuscular hemoglobin concentration (MCHC) determinationOrdered By: Thomas Quintanilla on 12-13-2024 MCHC (RBC) [Mass/Vol] 35.1 g/dL 32-36 [facility] Mean platelet volume determi nationOrdered By: Thomas Quintanilla on 12-13-2024 Platelet mean volume (Bld) [Entitic vol] 10.4 fL 6.2-12.0 [facility] Monocyte percentageOrdered B y: Thomas Quintanilla on 12-13-2024 Monocytes/100 WBC (Bld) 8.9 % 0-[address] [facility] Neutrophil percentageOrdered By: Thomas Quintanilla on 12-13-2024 Neutrophils/100 WBC (Bld) 63.2 % 47-70 [facility] Nucleated red blood cell per centageOrdered By: Thomas Quintanilla on 12-13-2024 Nucleated RBC/100 WBC (Bld) [Ratio] 0 % 0-5 [facility] Platelet countOrdered By: Yudith Quintanilla on 12-13-2024 Platelets (Bld) [#/Vol] 260 10*3/uL 150-450 [facility] Potassium measurementOrdered By: Thomas Quintanilla on 12-13-2024 Potassium [Moles/Vol] 3.1 mmol/L Low 3.5-5.1 [facility] RBC Auto (Bld) [#/Vol]Ordere d By: Thomas Quintanilla on 12-13-2024 RBC (Bld) [#/Vol] 5.18 10*6/uL 4.2-5.4 [facility] Serum anion gap measurementO rdered By: Thomas Quintanilla on 12-13-2024 Anion gap [Moles/Vol] 9 mmol/L 5-15 [facility] Serum or plasma calcium dequan urement (mass/volume)Ordered By: Thomas Quintanilla on 12-13-2024 Calcium [Mass/Vol] 10.2 mg/dL High 8.5-10.1 [facility] Serum or plasma creatinine m easurement (mass/volume)Ordered By: Thomas Quintanilla on 12-13-2024 Creatinine [Mass/Vol] 0.76 mg/dL 0.55-1.02 [facility] Comment on above: The validity of the calculated GFR & GFRAA in patients over 70 years has not been determined. Clinical correlation is essential. Serum or plasma urea nitroge n measurement (mass/volume)Ordered By: Thomas Quintanilla on 12-13-2024 Urea nitrogen [Mass/Vol] 19 mg/dL High 7-18 [facility] Sodium levelOrdered By: Tyler Quintanilla on 12-13-2024 Sodium [Moles/Vol] 135 mmol/L Low 136-145 [facility] White blood cell (WBC) count Ordered By: Thomas Quintanilla on 12-13-2024 WBC (Bld) [#/Vol] 11.0 10*3/uL 4.4-11.0 [facility] MR/BMS.Braeden 09-15-2024 MR/BMS.[facility] [address] [facility] [address] [place] [address] OFFICE VISIT Date of Service: 09/15/24 MR#: [id number] Acct: [id number] Name: CHRISTINA MACIAS Elisa Rep #: [id number] : 1955 Provider: Dr. Andrew alfaro MD Age/Sex: 68/F Location: [facility] Status: Signed Intake Vital Signs 10/01/23 10:02 09/15/24 13:25 Height 5 ft 6 in 5 ft 6 in Weight: 157 lb 155 lb 2 oz BMI 25.3 25.0 BP 134/82 H 162/84 H Blood Pressure Location Lt brachial Rt brachial Position Sitting Sitting Respiration 16 16 Pulse 79 59 L Pulse Source Monitor Monitor Temp 98.4 F 97.8 F Temp Source Temporal Temporal Pulse Oximetry (%) 94 98 Oxygen Delivery Method room air room air Intake Visit Reasons: Annual/Physical Chief Complaint: annual/physical Professional Caster Required: No Accompanied by: Is patient in pain?: No Allergies Seasonal Allergies: Uncoded Allergy (Intermediate, Verified 09/15/24 13:19) Itching Medications ???Medication ???Instructions ???Recorded ???Confirmed ???Type cetirizine 10 mg capsule (Zyrtec) 10 mg PO DAILY 08/07/22 09/15/24 History multivitamin 1 tab PO DAILY 08/07/22 09/15/24 History probiotic PO 08/07/22 09/15/24 History vitamin c PO 08/07/22 09/15/24 History calcium PO 2XW 09/10/23 09/15/24 History aspirin 81 mg tablet,delayed 81 mg PO QDAY 09/15/24 09/15/24 History release chlorthalidone 25 mg tablet 25 mg PO DAILY #90 tabs 09/15/24 09/15/24 Rx metoprolol succinate 25 mg 25 mg PO DAILY #90 tabs 09/15/24 09/15/24 Rx tablet,extended release 24 hr Have you fallen in the past year?: No PFSH Medical History Diverticulitis Vision problems GERD (gastroesophageal reflux disease) Pneumonia Irritable bowel syndrome Migraine Gastrointestinal problem Gallstones Carpal tunnel syndrome Cataracts, both eyes UTI (urinary tract infection) Back problem Arthritis Hypertension Surgical History Enlarged tonsils and adenoids Hx of cholecystectomy Hx of arthroscopic knee surgery Status post total hip replacement, right Family History Brother Alcoholism Hypertension Mother Cancer lung Hypertension Grandmother Arthritis Hypertension Grandfather Arthritis Hypertension Father Myocardial infarction at 46 years old Hypertension Other Diabetes Diverticular disease Heart disease Social History (Updated 09/15/24 @ 13:24 by Debra Damian RN) adopted: No household members: spouse housing: apartment current occupational status: retired Smoking Status: Former smoker alcohol intake: never details: occasional beer or ryann substance use type: does not use well-balanced diet: daily or most days caffeine: Yes eating out: 1-3 times/week during the past year weight has: remained stable what type of physical activity do you participate in: walking aleksey/mosque: Sabianism seatbelt use: always do you feel safe at home: Yes HPI HPI Chief Complaint: annual/physical Details: CHRISTINA MACIAS, is a 68 F who presents to the office today for yearly follow-up. Patient has a history of hypertension on chlorthalidone and metoprolol succinate. She has been on these medications long-term. I have not changed anything recent. Otherwise has some GERD symptoms. Overall, she is lost a little over 50 pounds, through dietary pattern change. She and her both need the same dietary pattern now, heavier on the fruits and vegetables, smaller amounts of meat and dairy etc., avoiding processed grain, processed carbohydrates. She feels well overall doing so. She has no new specific concerns or complaints. She and her have been exercising regularly as well, [employer]. Review of systems per chart. She denies chest pain, chest tightness episodes. No shortness of breath with exertion. Appetite has been good. Bowel movements are regular. No change in bowel movement pattern, no dysuria, urgency or frequency. No swelling. Physical exam. Vital signs on chart. PERRLA. Sclera are clear. TMs are unremarkable with normal light reflexes. Canals are unremarkable. Posterior pharynx is unremarkable. Good dentition. No cervical or supraclavicular lymph nodes enlarged or tender. No clear thyromegaly. No thyroid nodules readily palpable. Lungs are without wheeze, rhonchi, rales. No E/A changes are heard. Heart is regular. Not tachycardic. No clear murmur, rub, or gallop is identified. The abdomen is soft. Bowel sounds are present. Nontender nondistended abdomen. No significant leg edema. No obvious rashes. No obvious significant skin lesions are identified. ROS Const Constitutional: No body ache, chills, (more content not included)... Normal [facility] CBC W/Diff, Automatedon 10-3 Absolute Lymph 1.77 X10 3/uL Normal 0.83-4.51 [facility] Comment on above: Performed By: #### L 501.9520, L501.5200, L500.4050, L500.4100, L100.0100 ####[facility] [address] [place], [address] Absolute Neut 5.2 X10 3/uL Normal 2.0-7.7 [facility] Comment on above: Performed By: #### L 501.9520, L501.5200, L500.4050, L500.4100, L100.0100 ####[facility] [address] [place], [address] Basophils/100 WBC (Bld) 0.6 % Normal 0-[address] [facility] Comment on above: Performed By: #### L 501.9520, L501.5200, L500.4050, L500.4100, L100.0100 ####[facility] [address] [place], [address] Eosinophils/100 WBC (Bld) 1.4 % Normal 0-5 [facility] Comment on above: Performed By: #### L 501.9520, L501.5200, L500.4050, L500.4100, L100.0100 ####[facility] [address] [place], [address] Erythrocyte distribution width (RBC) [Ratio] 12.9 % Normal 11.6-14.6 [facility] Comment on above: Performed By: #### L 501.9520, L501.5200, L500.4050, L500.4100, L100.0100 ####[facility] [address] [place], [address] Hematocrit (Bld) [Volume fraction] 45.5 % Normal 37-47 [facility] Comment on above: Performed By: #### L 501.9520, L501.5200, L500.4050, L500.4100, L100.0100 ####[facility] [address] [place], [address] Hemoglobin (Bld) [Mass/Vol] 15.4 g/dL High 12.0-15.0 [facility] Comment on above: Performed By: #### L 501.9520, L501.5200, L500.4050, L500.4100, L100.0100 ####[facility] [address] [place], [address] IG% 0.400 Normal 0.0-0.9 [facility] Comment on above: Result Comment: IG% - Immature Granulocytes (promyelocytes, myelocytes and metamyelocytes) > 1% indicates that a LEFT SHIFT is Present. Performed By: #### L 501.9520, L501.5200, L500.4050, L500.4100, L100.0100 ####[facility] [address] [place], [address] Lymphocytes/100 WBC (Bld) 22.2 % Normal 19-41 [facility] Comment on above: Performed By: #### L 501.9520, L501.5200, L500.4050, L500.4100, L100.0100 ####[facility] [address] [place], [address] MCH (RBC) [Entitic mass] 29.2 pg Normal 27.0-32.0 [facility] Comment on above: Performed By: #### L 501.9520, L501.5200, L500.4050, L500.4100, L100.0100 ####[facility] [address] [place], [address] MCHC (RBC) [Mass/Vol] 33.8 g/dL Normal 32-36 [facility] Comment on above: Performed By: #### L 501.9520, L501.5200, L500.4050, L500.4100, L100.0100 ####[facility] [address] [place], [address] MCV (RBC) [Entitic vol] 86.2 fL Normal 81-[address] [facility] Comment on above: Performed By: #### L 501.9520, L501.5200, L500.4050, L500.4100, L100.0100 ####[facility] [address] [place], [address] Monocytes/100 WBC (Bld) 9.9 % Normal 0-[address] [facility] Comment on above: Performed By: #### L 501.9520, L501.5200, L500.4050, L500.4100, L100.0100 ####[facility] [address] [place], [address] Neutrophils/100 WBC (Bld) 65.5 % Normal 47-70 [facility] Comment on above: Performed By: #### L 501.9520, L501.5200, L500.4050, L500.4100, L100.0100 ####[facility] [address] [place], [address] Nucleated RBC (Bld) [#/Vol] 0 10*3/uL Normal 0-5 [facility] Comment on above: Performed By: #### L 501.9520, L501.5200, L500.4050, L500.4100, L100.0100 ####[facility] [address] [place], [address] Platelet mean volume (Bld) [Entitic vol] 10.2 fL Normal 6.2-12.0 [facility] Comment on above: Performed By: #### L 501.9520, L501.5200, L500.4050, L500.4100, L100.0100 ####[facility] [address] [place], [address] Platelets (Bld) [#/Vol] 250 10*3/uL Normal 150-450 [facility] Comment on above: Performed By: #### L 501.9520, L501.5200, L500.4050, L500.4100, L100.0100 ####[facility] [address] [place], [address] RBC (Bld) [#/Vol] 5.28 10*6/uL Normal 4.2-5.4 [facility] Comment on above: Performed By: #### L 501.9520, L501.5200, L500.4050, L500.4100, L100.0100 ####[facility] [address] [place], [address] RDW SD 40.2 fl Normal 35.1-43.9 [facility] Comment on above: Performed By: #### L 501.9520, L501.5200, L500.4050, L500.4100, L100.0100 ####[facility] [address] [place], [address] WBC (Bld) [#/Vol] 8.0 10*3/uL Normal 4.4-11.0 [facility] Comment on above: Performed By: #### L 501.9520, L501.5200, L500.4050, L500.4100, L100.0100 ####[facility] [address] [place], [address] [facility] Albumin [Mass/Vol] 4.0 g/dL Normal 3.2-5.0 [facility] Comment on above: Performed By: #### L 501.9520, L501.5200, L500.4050, L500.4100, L100.0100 ####[facility] [address] [place], [address] Albumin/Globulin [Mass ratio] 1.2 {ratio} Normal 0.9-2.4 [facility] Comment on above: Performed By: #### L 501.9520, L501.5200, L500.4050, L500.4100, L100.0100 ####[facility] [address] [place], [address] ALK P 96 U/L Normal 45-117 [facility] Comment on above: Performed By: #### L 501.9520, L501.5200, L500.4050, L500.4100, L100.0100 ####[facility] [address] [place], [address] ALT [Catalytic activity/Vol] 26 U/L Normal 13-56 [facility] Comment on above: Performed By: #### L 501.9520, L501.5200, L500.4050, L500.4100, L100.0100 ####[facility] [address] [place], [address] AST [Catalytic activity/Vol] 22 U/L Normal 15-37 [facility] Comment on above: Performed By: #### L 501.9520, L501.5200, L500.4050, L500.4100, L100.0100 ####[facility] [address] [place], [address] Bilirubin [Mass/Vol] 1.90 mg/dL High 0.20-1.00 [facility] Comment on above: Result Comment: For patients on eltrombopag therapy, use of Dimension [place] TBIL is not recommended. Performed By: #### L 501.9520, L501.5200, L500.4050, L500.4100, L100.0100 ####[facility] [address] [place], [address] BUN/CRE 22.9 RATIO High 10-20 [facility] Comment on above: Performed By: #### L 501.9520, L501.5200, L500.4050, L500.4100, L100.0100 ####[facility] [address] [place], [address] CA,Total 9.4 mg/dL Normal 8.5-10.1 [facility] Comment on above: Performed By: #### L 501.9520, L501.5200, L500.4050, L500.4100, L100.0100 ####[facility] [address] [place], [address] Chloride [Moles/Vol] 99 mmol/L Normal 98-107 [facility] Comment on above: Performed By: #### L 501.9520, L501.5200, L500.4050, L500.4100, L100.0100 ####[facility] [address] [place], [address] CO2 [Moles/Vol] 30.0 mmol/L Normal 21.0-32.0 [facility] Comment on above: Performed By: #### L 501.9520, L501.5200, L500.4050, L500.4100, L100.0100 ####[facility] [address] [place], [address] Creatinine [Mass/Vol] 0.74 mg/dL Normal 0.55-1.02 [facility] Comment on above: Result Comment: The validity of the calculated GFR GFRAA in patients over 70 years has not been determined. Clinical correlation is essential. Performed By: #### L 501.9520, L501.5200, L500.4050, L500.4100, L100.0100 ####[facility] [address] [place], [address] EST GFR - AA 99 mL/min Normal >60 [facility] Comment on above: Result Comment: Afri can [place] GFR Calc Performed By: #### L 501.9520, L501.5200, L500.4050, L500.4100, L100.0100 ####[facility] [address] [place], [address] GAP 7 Normal 5-15 [facility] Comment on above: Performed By: #### L 501.9520, L501.5200, L500.4050, L500.4100, L100.0100 ####[facility] [address] [place], [address] GFR/1.73 sq M.predicted among non-blacks MDRD (S/P/Bld) [Vol rate/Area] 82 mL/min/{1.73_m2} Normal >60 [facility] Comment on above: Result Comment: Non- GFR Calc Performed By: #### L 501.9520, L501.5200, L500.4050, L500.4100, L100.0100 ####[facility] [address] [place], [address] Globulin (S) [Mass/Vol] 3.4 g/dL Normal 2.2-4.2 [facility] Comment on above: Performed By: #### L 501.9520, L501.5200, L500.4050, L500.4100, L100.0100 ####[facility] [address] [place], [address] Glucose [Mass/Vol] 107 mg/dL High 74-106 [facility] Comment on above: Result Comment: Fast ing Glucose result from 100 to 125 mg/dL suggests IMPAIRED HOMEOSTASIS per A.D.A. criteria. Performed By: #### L 501.9520, L501.5200, L500.4050, L500.4100, L100.0100 ####[facility] [address] [place], [address] Potassium [Moles/Vol] 3.2 mmol/L Low 3.5-5.1 [facility] Comment on above: Performed By: #### L 501.9520, L501.5200, L500.4050, L500.4100, L100.0100 ####[facility] [address] [place], [address] Sodium [Moles/Vol] 136 mmol/L Normal 136-145 [facility] Comment on above: Performed By: #### L 501.9520, L501.5200, L500.4050, L500.4100, L100.0100 ####[facility] [address] [place], [address] T PROT 7.4 g/dL Normal 6.4-8.2 [facility] Comment on above: Performed By: #### L 501.9520, L501.5200, L500.4050, L500.4100, L100.0100 ####[facility] [address] [place], [address] Urea nitrogen [Mass/Vol] 17 mg/dL Normal 7-18 [facility] Comment on above: Performed By: #### L 501.9520, L501.5200, L500.4050, L500.4100, L100.0100 ####[facility] [address] [place], [address] Lipid Profileon 09-09-2024 Cholesterol [Mass/Vol] 210 mg/dL High 200 [facility] Comment on above: Result Comment: <200 mg/dL Desirable 200-240 mg/dL Borderline >240 mg/dL High Risk Performed By: #### L 501.9520, L501.5200, L500.4050, L500.4100, L100.0100 ####[facility] [address] [place], [address] Cholesterol in HDL [Mass/Vol] 60 mg/dL Normal [facility] Comment on above: Result Comment: The drugs N-Acetylcysteine and Metamizole may falsely depress this assay. Reference Range HDL <40 mg/dL Low HDL Cholesterol HDL >or= 60 mg/dL High HDL Cholesterol Performed By: #### L 501.9520, L501.5200, L500.4050, L500.4100, L100.0100 ####[facility] [address] [place], [address] Cholesterol in LDL [Mass/Vol] 128 mg/dL Normal 0-130 [facility] Comment on above: Performed By: #### L 501.9520, L501.5200, L500.4050, L500.4100, L100.0100 ####[facility] [address] [place], [address] Cholesterol in VLDL [Mass/Vol] 22 mg/dL Normal 5-40 [facility] Comment on above: Performed By: #### L 501.9520, L501.5200, L500.4050, L500.4100, L100.0100 ####[facility] [address] [place], [address] Triglyceride [Mass/Vol] 109 mg/dL Normal [facility] Comment on above: Result Comment: The drugs N-Acetylcysteine and Metamizole may falsely depress this assay. Serum Triglycerides Reference Interval Normal <150 mg/dL Borderline high 150 - 199 mg/dL High 200 - 499 mg/dL Very High > or = 500 mg/dL Performed By: #### L 501.9520, L501.5200, L500.4050, L500.4100, L100.0100 ####[facility] [address] [place], [address] Magnesiumon 09-09-2024 Magnesium [Mass/Vol] 2.6 mg/dL Normal 1.6-2.6 [facility] Comment on above: Performed By: #### L 501.9520, L501.5200, L500.4050, L500.4100, L100.0100 ####[facility] [address] [place], [place], [address] Thyroid Stim Hormone (TSH)on 09-09-2024 TSH 1.600 uIU/mL Normal 0.358-3.740 [facility] Comment on above: Performed By: #### L 501.9520, L501.5200, L500.4050, L500.4100, L100.0100 ####[facility] [address] [place], [place], [address] Absolute lymphocyte countOrd ered By: Andrew Billingsley on 09-04-2023 Lymphocytes Auto (Unsp spec) [#/Vol] 1.69 10*3/uL 0.83-4.51 [facility] Basophil percentageOrdered B y: Andrew Billingsley on 09-04-2023 Basophils/100 WBC (Bld) 0.6 % 0-1 [facility] Bilirubin [Mass/Vol] 1.20 mg/dL 0.20-1.00 [facility] Comment on above: For patients on eltr ombopag therapy, use of Dimension [place] TBIL is not recommended. Chloride [Moles/Vol] 103 mmol/L 98-107 [facility] Cholesterol [Mass/Vol] 186 mg/dL <200 [facility] Comment on above: <200 mg/dL Desirable 200-240 mg/dL Borderline >240 mg/dL High Risk Eosinophils/100 WBC (Bld) 2.3 % 0-5 [facility] Glucose [Mass/Vol] 103 mg/dL 74-106 [facility] Comment on above: Fasting Glucose resu lt from 100 to 125 mg/dL suggests IMPAIRED HOMEOSTASIS per A.D.A. criteria. Neutrophils (Bld) [#/Vol] 3.9 10*3/uL 2.0-7.7 [facility] Neutrophils/100 WBC (Bld) 60.2 % 47-70 [facility] Potassium [Moles/Vol] 3.3 mmol/L 3.5-5.1 [facility] Protein [Mass/Vol] 7.1 g/dL 6.4-8.2 [facility] Sodium [Moles/Vol] 138 mmol/L 136-145 [facility] Triglyceride [Mass/Vol] 91 mg/dL <[address] [facility] Comment on above: The drugs N-Acetylcy steine and Metamizole may falsely depress this assay.Serum Triglycerides Reference Interval Normal <150 mg/dL Borderline high 150 - 199 mg/dL High 200 - 499 mg/dL Very High > or = 500 mg/dL WBC (Bld) [#/Vol] 6.4 10*3/uL 4.4-11.0 [facility] Blood erythrocytes count (nu mber/volume)Ordered By: Andrew Billingsley on 09-04-2023 RBC (Bld) [#/Vol] 5.24 10*6/uL 4.2-5.4 [facility] Blood hemoglobin measurement (mass/volume)Ordered By: Andrew Billingsley on 09-04-2023 Hemoglobin (Bld) [Mass/Vol] 15.1 g/dL 12.0-15.0 [facility] Blood lymphocytes/100 leukoc ytesOrdered By: Andrew Billingsley on 09-04-2023 Lymphocytes/100 WBC (Bld) 26.4 % 19-41 [facility] Blood monocytes/100 leukocyt esOrdered By: Andrew Billingsley on 09-04-2023 Monocytes/100 WBC (Bld) 10.3 % 0-10 [facility] Blood platelet mean volumeOr dered By: Andrew Billingsley on 09-04-2023 Platelet mean volume (Bld) [Entitic vol] 11.2 fL 6.2-12.0 [facility] Determination of erythrocyte mean corpuscular volume (MCV)Ordered By: Andrew Billingsley on 09-04-2023 MCV (RBC) [Entitic vol] 87.2 fL 81-[address] [facility] Hematocrit Auto (Bld) [Volum e fraction]Ordered By: nAdrew Billingsley on 09-04-2023 Hematocrit (Bld) [Volume fraction] 45.7 % 37-47 [facility] Laboratory - Chemistry and C hemistry - challengeOrdered By: Andrew Billingsley on 09-04-2023 ALP [Catalytic activity/Vol] 94 U/L 45-117 [facility] ALT [Catalytic activity/Vol] 28 U/L 13-56 [facility] CO2 [Moles/Vol] 30.0 mmol/L 21.0-32.0 [facility] Globulin (S) [Mass/Vol] 3.3 g/dL 2.2-4.[address] [facility] Urea nitrogen/Creatinine [Mass ratio] 19.8 mg/mg 10-20 [facility] - Hematology and Cell countsOrdered By: Andrew Billingsley on 09-04-2023 Erythrocyte distribution width (RBC) [Entitic vol] 42.7 fL 35.1-43.9 [facility] Erythrocyte distribution width (RBC) [Ratio] 13.4 % 11.6-14.6 [facility] Immature granulocytes/100 WBC (Bld) 0.200 % 0.0-0.9 [facility] Comment on above: IG% - Immature Granu locytes (promyelocytes, myelocytes and metamyelocytes) > 1% indicates that a LEFT SHIFT is Present. MCH (RBC) [Entitic mass] 28.8 pg 27.0-32.0 [facility] Nucleated RBC/100 WBC (Bld) [Ratio] 0 % 0-5 [facility] MCHC Auto (RBC) [Mass/Vol]Or dered By: Andrew Billingsley on 09-04-2023 MCHC (RBC) [Mass/Vol] 33.0 g/dL 32-36 [facility] No Panel InformationOrdered By: Andrew Billingsley on 09-04-2023 Estimated GFR (MDRD) Amer 90 mL/min >60 [facility] Comment on above: GFR Calc Estimated GFR (MDRD) Non-Af Amer 75 mL/min >60 [facility] Comment on above: Non- GFR Calc Thyroid Stimulating Hormone (TSH) 1.44 uIU/mL 0.358-3.74 [facility] Platelets bldOrdered By: Lexis Billingsley on 09-04-2023 Platelets (Bld) [#/Vol] 234 10*3/uL 150-450 [facility] Serum or plasma albumin dequan urement (mass/volume)Ordered By: Andrew Billingsley on 09-04-2023 Albumin [Mass/Vol] 3.8 g/dL 3.2-5.0 [facility] Serum or plasma albumin/glob ulin mass ratioOrdered By: Andrew Billingsley on 09-04-2023 Albumin/Globulin [Mass ratio] 1.2 {ratio} 0.9-2.4 [facility] Serum or plasma calcium dequan urement (mass/volume)Ordered By: Andrew Billingsley on 09-04-2023 Calcium [Mass/Vol] 9.0 mg/dL 8.5-10.1 [facility] Serum or plasma cholesterol in HDL measurement (mass/volume)Ordered By: Andrew Billingsley on 09-04-2023 Cholesterol in HDL [Mass/Vol] 52 mg/dL >40 [facility] Comment on above: The drugs N-Acetylcy steine and Metamizole may falsely depress this assay. Reference Range HDL <40 mg/dL Low HDL Cholesterol HDL >or= 60 mg/dL High HDL Cholesterol Serum or plasma cholesterol in VLDL measurement (mass/volume)Ordered By: Andrew Billingsley on 09-04-2023 Cholesterol in VLDL [Mass/Vol] 18 mg/dL 5-40 [facility] Serum or plasma creatinine m easurement (mass/volume)Ordered By: Andrew Billingsley on 09-04-2023 Creatinine [Mass/Vol] 0.81 mg/dL 0.55-1.02 [facility] Comment on above: The validity of the calculated GFR & GFRAA in patients over 70 years has not been determined. Clinical correlation is essential. Serum or plasma low density lipoprotein (LDL) cholesterol measurement (mass/volume)Ordered By: Andrew Billingsley on 09-04-2023 Cholesterol in LDL [Mass/Vol] 116 mg/dL 0-130 [facility] Serum or plasma urea nitroge n measurement (mass/volume)Ordered By: Andrew Billingsley on 09-04-2023 Urea nitrogen [Mass/Vol] 16 mg/dL 7-18 [facility] Thin prep Papanicolaou smear with manual screeningOrdered By: Andrew Billingsley on 09-04-2023 Thin prep Papanicolaou smear with manual screening 25 U/L 15-37 [facility] Thin prep Papanicolaou smear with manual screening 5 5-15 [facility] Whole blood hemoglobin A1c/t otal hemoglobin ratio (mass fraction)Ordered By: Andrew Billingsley on 09-04-2023 HbA1c (Bld) [Mass fraction] 5.3 % 3.8-5.6 [facility] Comment on above: Normal < 5.7 % Predi abetic 5.7 - 6.4 % Diabetic >or= 6.5 % Please note range changes. CNOVon 05-14-2023 CNOV Office Visit (UCWSTR ) CHRISTINA MACIAS ([id number]) 1955 F Date Time Provider Department 05/14/23 12:45 PM [facility] During your visit today, we recorded the following information about you: Temperature Pulse Respiration Blood pressure 97.8 degrees 62/minute 18/minute 128/82 Weight 85.9 kg Lynne Aparicio APRN.CNP 05/14/2023 1:30 PM Signed Subjective HPI HPI Christina Carpenter is a 67 year old female who presents today for CC of left ear plugged after swimming yesterday. Has tried nothing for relief. Symptoms are worsened by nothing. Risk factors uses qtips in ear canals. .Patient presents with: Ear Problem: Left ear feels clogged x 1 day PAST MEDICAL HISTORY Diagnosis Date Diverticulosis of colon (without mention of hemorrhage) colonoscopy 08/14 Essential hypertension, benign IBS (irritable bowel syndrome) Pneumonia 08/2014 PAST SURGICAL HISTORY Procedure Laterality Date COLONOSCOPY 06/2010 DILATION AND CURETTAGE DXAND/THER NONOBSTETRIC Dilation AND curettage LAPAROSCOPY SURG CHOLECYSTECTOMY 09/2009 PAST SURGICAL HISTORY OF 4968-0249 bilat knee arthroscopic TONSILLECTOMY AND ADENOIDECTOMY Tonsil/adenoidectomy ALLERGIES Patient has no known allergies. MEDICATIONS amLODIPine (NORVASC) 5 mg tablet Take 1 tablet by mouth twice daily. (Patient taking differently: Take 5 mg by mouth once daily.) lisinopril (ZESTRIL, PRINIVIL) 20 mg tablet Take 1 tablet by mouth in the morning and 1 tablet in the evening metoprolol succinate ER (TOPROL XL) 50 mg 24 hr tablet Take 1 tablet by mouth twice daily. cetirizine (ZYRTEC) 10 mg tablet Take 1 tablet by mouth once daily. calcium, elemental, tab Take 1 tablet by mouth once daily. Lactobacillus acidophilus 10 billion cell cap Take once daily multivitamins(DAILY VITAMIN TAB) Take one(1) tablet daily. aspirin(BABY ASPIRIN 81 MG CHEWABLE TAB) Take one(1) tablet daily. chlorthalidone (HYGROTON) 25 mg tablet Take 1 tablet by mouth once daily. FAMILY HISTORY Problem Relation Age of Onset Ischemic Heart Disease Father age 46 Cancer Mother lung Ischemic Heart Disease Other nephew Social History Tobacco Use Smoking status: Former Packs/day: 2.00 Years: 25.00 Pack years: 50.00 Types: Cigarettes Quit date: 11/10/1997 Years since quittin.5 Smokeless tobacco: Never Substance Use Topics Alcohol use: Yes Comment: rare Drug use: No ROS Objective Blood pressure 128/82, pulse 62, temperature 36.6 ?C (97.8 ?F), temperature source Tympanic, resp. rate 18, weight 85.9 kg (189 lb 6.4 oz), SpO2 96 %. Physical Exam Constitutional: General: She is not in acute distress. Appearance: She is not toxic-appearing or diaphoretic. HENT: Head: Normocephalic and atraumatic. Right Ear: Hearing and external ear normal. Left Ear: Hearing and external ear normal. Ears: Comments: Initially unable to see bilat tm d/t cerumen impaction. Procedure: Provider/curette Nurse/lavage After procedure bilat canal clear and bilat tm normal flap of skin in left ear canal slightly obscures exam. Pulmonary: Effort: Pulmonary effort is normal. No accessory muscle usage or respiratory distress. Neurological: Mental Status: She is alert and oriented to person, place, and time. ASSESSMENT/PLAN: 1. Bilateral impacted cerumen - ICD9: 380.4, ICD10: H61.23 Succesful lavage by nurse and curetage by provider I discussed proper ear hygiene F/u for continued s/s. - AMBULATORY EAR LAVAGE/IRRIGATION Lynne Aparicio APRN.[employer] Referring Provider: SELF [200] Allergies As of Date: 05/14/2023 (No Known Allergies) Date Reviewed: 05/14/2023 Reviewed by: Halima Frost LPN - Fully Assessed Reason for Visit: Ear Problem [38] Cmt: Left ear feels clogged x 1 day Primary Visit Diagnosis:Bilateral impacted cerumen [H61.23] Order(s):AMBULATORY EAR LAVAGE/IRRIGATION [[id number]] Order #: [id number] Prescriptions as of 05/14/2023 - amLODIPine (NORVASC) 5 mg tablet Take 1 tablet by mouth twice daily. - lisinopril (ZESTRIL, PRINIVIL) 20 mg tablet Take 1 tablet by mouth in the morning and 1 tablet in the evening - metoprolol succinate ER (TOPROL XL) 50 mg 24 hr tablet Take 1 tablet by mouth twice daily. - chlorthalidone (HYGROTON) 25 mg tablet Take 1 tablet by mouth once daily. - cetirizine (ZYRTEC) 10 mg tablet Take 1 tablet by mouth once daily. - calcium, elemental, tab Take 1 tablet by mouth once daily. - Lactobacillus acidophilus 10 billion cell cap Take once daily - multivitamins(DAILY VITAMIN TAB) Take one(1) tablet daily. - aspirin(BABY ASPIRIN 81 MG CHEWABLE TAB) Take one(1) tablet daily. Meds Comments as of 08/16/2013: Pt states she has albuterol but is not taking due to increase in HR. CM MA Problem List As Of Date 05/14/2023 Noted Resolved Essential hypertension, benign [I10] 03/22/2002 (more content not included)... Normal [facility] Basophil percentageOrdered B y: Andrew Billingsley on 05-07-2023 Chloride [Moles/Vol] 95 mmol/L 98-107 [facility] Glucose [Mass/Vol] 114 mg/dL 74-106 [facility] Comment on above: Fasting Glucose resu lt from 100 to 125 mg/dL suggests IMPAIRED HOMEOSTASIS per A.D.A. criteria. Potassium [Moles/Vol] 3.1 mmol/L 3.5-5.1 [facility] Sodium [Moles/Vol] 131 mmol/L 136-145 [facility] - Chemistry and C hemistry - challengeOrdered By: Andrew Billingsley on 05-07-2023 CO2 [Moles/Vol] 29.0 mmol/L 21.0-32.0 [facility] Urea nitrogen/Creatinine [Mass ratio] 15.0 mg/mg 10-20 [facility] No Panel InformationOrdered By: Andrew Billingsley on 05-07-2023 Estimated GFR (MDRD) Amer 77 mL/min >60 [facility] Comment on above: GFR Calc Estimated GFR (MDRD) Non-Af Amer 63 mL/min >60 [facility] Comment on above: Non- GFR Calc Serum or plasma calcium dequan urement (mass/volume)Ordered By: Andrew Billingsley on 05-07-2023 Calcium [Mass/Vol] 9.9 mg/dL 8.5-10.1 [facility] Serum or plasma creatinine m easurement (mass/volume)Ordered By: Andrew Billingsley on 05-07-2023 Creatinine [Mass/Vol] 0.93 mg/dL 0.55-1.02 [facility] Comment on above: The validity of the calculated GFR & GFRAA in patients over 70 years has not been determined. Clinical correlation is essential. Serum or plasma urea nitroge n measurement (mass/volume)Ordered By: Andrew Billingsley on 05-07-2023 Urea nitrogen [Mass/Vol] 14 mg/dL -18 [facility] Thin prep Papanicolaou smear with manual screeningOrdered By: Andrew Billingsley on 05-07-2023 Thin prep Papanicolaou smear with manual screening 7 5-15 [facility] Absolute lymphocyte countOrd ered By: Andrew Billingsley on 03-28-2023 Lymphocytes Auto (Unsp spec) [#/Vol] 2.06 10*3/uL 0.83-4.51 [facility] Basophil percentageOrdered B y: Andrew Billingsley on 03-28-2023 Basophils/100 WBC (Bld) 1.0 % 0-[address] [facility] Bilirubin [Mass/Vol] 1.00 mg/dL 0.20-1.00 [facility] Comment on above: For patients on eltr ombopag therapy, use of Dimension [place] TBIL is not recommended. Chloride [Moles/Vol] 97 mmol/L 98-107 [facility] Cholesterol [Mass/Vol] 180 mg/dL <200 [facility] Comment on above: <200 mg/dL Desirable 200-240 mg/dL Borderline >240 mg/dL High Risk Eosinophils/100 WBC (Bld) 2.4 % 0-5 [facility] Glucose [Mass/Vol] 121 mg/dL 74-106 [facility] Comment on above: Fasting Glucose resu lt from 100 to 125 mg/dL suggests IMPAIRED HOMEOSTASIS per A.D.A. criteria. Neutrophils (Bld) [#/Vol] 4.1 10*3/uL 2.0-7.7 [facility] Neutrophils/100 WBC (Bld) 57.3 % 47-70 [facility] Potassium [Moles/Vol] 3.6 mmol/L 3.5-5.1 [facility] Protein [Mass/Vol] 7.9 g/dL 6.4-8.2 [facility] Sodium [Moles/Vol] 135 mmol/L 136-145 [facility] Triglyceride [Mass/Vol] 135 mg/dL <199 [facility] Comment on above: The drugs N-Acetylcy steine and Metamizole may falsely depress this assay.Serum Triglycerides Reference Interval Normal <150 mg/dL Borderline high 150 - 199 mg/dL High 200 - 499 mg/dL Very High > or = 500 mg/dL WBC (Bld) [#/Vol] 7.1 10*3/uL 4.4-11.0 [facility] Blood erythrocytes count (nu mber/volume)Ordered By: Andrew Billingsley on 03-28-2023 RBC (Bld) [#/Vol] 5.41 10*6/uL 4.2-5.4 [facility] Blood hemoglobin measurement (mass/volume)Ordered By: Andrew Billingsley on 03-28-2023 Hemoglobin (Bld) [Mass/Vol] 15.6 g/dL 12.0-15.0 [facility] Blood lymphocytes/100 leukoc ytesOrdered By: Andrew Billingsley on 03-28-2023 Lymphocytes/100 WBC (Bld) 29.1 % 19-41 [facility] Blood monocytes/100 leukocyt esOrdered By: Andrew Billingsley on 03-28-2023 Monocytes/100 WBC (Bld) 9.9 % 0-[address] [facility] Blood platelet mean volumeOr dered By: Andrew Billingsley on 03-28-2023 Platelet mean volume (Bld) [Entitic vol] 11.4 fL 6.2-12.0 [facility] Determination of erythrocyte mean corpuscular volume (MCV)Ordered By: Andrew Billingsley on 03-28-2023 MCV (RBC) [Entitic vol] 88.5 fL 81-[address] [facility] Hematocrit Auto (Bld) [Volum e fraction]Ordered By: Andrew Billingsley on 03-28-2023 Hematocrit (Bld) [Volume fraction] 47.9 % 37-47 [facility] - Chemistry and C hemistry - challengeOrdered By: Andrew Billingsley on 03-28-2023 ALP [Catalytic activity/Vol] 97 U/L 45-117 [facility] ALT [Catalytic activity/Vol] 53 U/L 13-56 [facility] CO2 [Moles/Vol] 29.0 mmol/L 21.0-32.0 [facility] Globulin (S) [Mass/Vol] 3.6 g/dL 2.2-4.2 [facility] Magnesium [Mass/Vol] 1.9 mg/dL 1.6-2.6 [facility] Urea nitrogen/Creatinine [Mass ratio] 27.8 mg/mg 10-20 [facility] - Hematology and Cell countsOrdered By: Andrew Billingsley on 03-28-2023 Erythrocyte distribution width (RBC) [Entitic vol] 41.3 fL 35.1-43.9 [facility] Erythrocyte distribution width (RBC) [Ratio] 12.8 % 11.6-14.6 [facility] Immature granulocytes/100 WBC (Bld) 0.300 % 0.0-0.9 [facility] Comment on above: IG% - Immature Granu locytes (promyelocytes, myelocytes and metamyelocytes) > 1% indicates that a LEFT SHIFT is Present. MCH (RBC) [Entitic mass] 28.8 pg 27.0-32.0 [facility] Nucleated RBC/100 WBC (Bld) [Ratio] 0 % 0-5 [facility] MCHC Auto (RBC) [Mass/Vol]Or dered By: Andrew Billingsley on 03-28-2023 MCHC (RBC) [Mass/Vol] 32.6 g/dL 32-36 [facility] No Panel InformationOrdered By: Andrew Billingsley on 03-28-2023 Estimated GFR (MDRD) Amer 76 mL/min >60 [facility] Comment on above: GFR Calc Estimated GFR (MDRD) Non-Af Amer 63 mL/min >60 [facility] Comment on above: Non- GFR Calc Thyroid Stimulating Hormone (TSH) 2.68 uIU/mL 0.358-3.74 [facility] Vitamin D 25-Hydroxy 62.4 ng/mL [facility] Comment on above: Vitamin D 25(OH) Sta tus Range Deficiency <20 ng/mL (50nmol/L) Insufficiency 20 - 30 ng/mL (50 - 75 nmol/L) Sufficiency 30 - 100 ng/mL (75 - 250 nmol/L) Toxicity >100 ng/mL (>250 nmol/L) Platelets bldOrdered By: Lexis Billingsley on 03-28-2023 Platelets (Bld) [#/Vol] 267 10*3/uL 150-450 [facility] Serum or plasma albumin dequan urement (mass/volume)Ordered By: Andrew Billingsley on 03-28-2023 Albumin [Mass/Vol] 4.3 g/dL 3.2-5.0 [facility] Serum or plasma albumin/glob ulin mass ratioOrdered By: Andrew Billingsley on 03-28-2023 Albumin/Globulin [Mass ratio] 1.2 {ratio} 0.9-2.4 [facility] Serum or plasma calcium dequan urement (mass/volume)Ordered By: Andrew Billingsley on 03-28-2023 Calcium [Mass/Vol] 10.2 mg/dL 8.5-10.1 [facility] Serum or plasma cholesterol in HDL measurement (mass/volume)Ordered By: Andrew Billingsley on 03-28-2023 Cholesterol in HDL [Mass/Vol] 47 mg/dL >40 [facility] Comment on above: The drugs N-Acetylcy steine and Metamizole may falsely depress this assay. Reference Range HDL <40 mg/dL Low HDL Cholesterol HDL >or= 60 mg/dL High HDL Cholesterol Serum or plasma cholesterol in VLDL measurement (mass/volume)Ordered By: Andrew Billingsley on 03-28-2023 Cholesterol in VLDL [Mass/Vol] 27 mg/dL 5-40 [facility] Serum or plasma creatinine m easurement (mass/volume)Ordered By: Andrew Billingsley on 03-28-2023 Creatinine [Mass/Vol] 0.93 mg/dL 0.55-1.02 [facility] Comment on above: The validity of the calculated GFR & GFRAA in patients over 70 years has not been determined. Clinical correlation is essential. Serum or plasma low density lipoprotein (LDL) cholesterol measurement (mass/volume)Ordered By: Andrew Billingsley on 03-28-2023 Cholesterol in LDL [Mass/Vol] 106 mg/dL 0-130 [facility] Serum or plasma urea nitroge n measurement (mass/volume)Ordered By: Andrew Billingsley on 03-28-2023 Urea nitrogen [Mass/Vol] 26 mg/dL 7-18 [facility] Thin prep Papanicolaou smear with manual screeningOrdered By: Andrew Billingsley on 03-28-2023 Thin prep Papanicolaou smear with manual screening 29 U/L 15-37 [facility] Thin prep Papanicolaou smear with manual screening 9 5-15 [facility] Whole blood hemoglobin A1c/t otal hemoglobin ratio (mass fraction)Ordered By: Andrew Billingsley on 03-28-2023 HbA1c (Bld) [Mass fraction] 6.0 % 3.8-5.6 [facility] Comment on above: Normal < 5.7 % Predi abetic 5.7 - 6.4 % Diabetic >or= 6.5 % Please note range changes. Absolute lymphocyte counton 09-30-2022 Lymphocytes Auto (Unsp spec) [#/Vol] 2.40 10*3/uL 0.83-4.51 [facility] Work Phone: Basophil percentageon 2021 Basophils/100 WBC (Bld) 0.5 % 0-[address] [facility] Work Phone: [phone] Bilirubin [Mass/Vol] 0.90 mg/dL 0.20-1.00 [facility] Work Phone: [phone] Comment on above: For patients on eltr ombopag therapy, use of Dimension [place] TBIL is not recommended. Chloride [Moles/Vol] 97 mmol/L 98-107 [facility] Work Phone: Cholesterol [Mass/Vol] 197 mg/dL <200 [facility] Work Phone: [phone] Comment on above: <200 mg/dL Desirable 200-240 mg/dL Borderline >240 mg/dL High Risk Eosinophils/100 WBC (Bld) 2.8 % 0-5 [facility] Work Phone: [phone] Glucose [Mass/Vol] 126 mg/dL 74-106 [facility] Work Phone: [phone] Comment on above: Fasting Glucose resu lt greater than or equal to 126 mg/dL suggests DIABETES MELLITUS per A.D.A. criteria. Neutrophils (Bld) [#/Vol] 5.9 10*3/uL 2.0-7.7 [facility] Work Phone: Neutrophils/100 WBC (Bld) 62.2 % 47-70 [facility] Work Phone: [phone] Potassium [Moles/Vol] 3.9 mmol/L 3.5-5.1 [facility] Work Phone: [phone] Protein [Mass/Vol] 7.5 g/dL 6.4-8.2 [facility] Work Phone: Sodium [Moles/Vol] 135 mmol/L 136-145 [facility] Work Phone: [phone] Triglyceride [Mass/Vol] 264 mg/dL <[address] [facility] Work Phone: [phone] Comment on above: The drugs N-Acetylcy steine and Metamizole may falsely depress this assay.Serum Triglycerides Reference Interval Normal <150 mg/dL Borderline high 150 - 199 mg/dL High 200 - 499 mg/dL Very High > or = 500 mg/dL WBC (Bld) [#/Vol] 9.5 10*3/uL 4.4-11.0 [facility] Work Phone: [phone] Blood erythrocytes count (nu mber/volume)on 09-30-2022 RBC (Bld) [#/Vol] 5.19 10*6/uL 4.2-5.4 [facility] Work Phone: [phone] Blood hemoglobin measurement (mass/volume)on 09-30-2022 Hemoglobin (Bld) [Mass/Vol] 14.7 g/dL 12.0-15.0 [facility] Work Phone: [phone] Blood lymphocytes/100 leukoc yteson 09-30-2022 Lymphocytes/100 WBC (Bld) 25.4 % 19-41 [facility] Work Phone: [phone] Blood monocytes/100 leukocyt eson 09-30-2022 Monocytes/100 WBC (Bld) 8.8 % 0-[address] [facility] Work Phone: [phone] Blood platelet mean volumeon 09-30-2022 Platelet mean volume (Bld) [Entitic vol] 10.4 fL 6.2-12.0 [facility] Work Phone: [phone] Determination of erythrocyte mean corpuscular volume (MCV)on 09-30-2022 MCV (RBC) [Entitic vol] 85.7 fL 81-[address] [facility] Work Phone: [phone] Hematocrit Auto (Bld) [Volum e fraction]on 09-30-2022 Hematocrit (Bld) [Volume fraction] 44.5 % 37-47 [facility] Work Phone: [phone] Laboratory - Chemistry and C hemistry - challengeon 09-30-2022 ALP [Catalytic activity/Vol] 109 U/L 45-117 [facility] Work Phone: [phone] ALT [Catalytic activity/Vol] 60 U/L 13-56 [facility] Work Phone: [phone] CO2 [Moles/Vol] 28.0 mmol/L 21.0-32.0 [facility] Work Phone: [phone] Globulin (S) [Mass/Vol] 3.6 g/dL 2.2-4.[address] [facility] Work Phone: [phone] Urea nitrogen/Creatinine [Mass ratio] 26.8 mg/mg 10-20 [facility] Work Phone: [phone] Laboratory - Hematology and Cell countson 09-30-2022 Erythrocyte distribution width (RBC) [Entitic vol] 39.6 fL 35.1-43.9 [facility] Work Phone: [phone] Erythrocyte distribution width (RBC) [Ratio] 12.9 % 11.6-14.6 [facility] Work Phone: [phone] Immature granulocytes/100 WBC (Bld) 0.300 % 0.0-0.9 [facility] Work Phone: [phone] Comment on above: IG% - Immature Granu locytes (promyelocytes, myelocytes and metamyelocytes) > 1% indicates that a LEFT SHIFT is Present. MCH (RBC) [Entitic mass] 28.3 pg 27.0-32.0 [facility] Work Phone: [phone] Nucleated RBC/100 WBC (Bld) [Ratio] 0 % 0-5 [facility] Work Phone: [phone] MCHC Auto (RBC) [Mass/Vol]on 09-30-2022 MCHC (RBC) [Mass/Vol] 33.0 g/dL 32-36 [facility] Work Phone: [phone] Panel Informationon 09-30 Estimated GFR (MDRD) Amer 84 mL/min >60 [facility] Work Phone: [phone] Comment on above: GFR Calc Estimated GFR (MDRD) Non-Af Amer 70 mL/min >60 [facility] Work Phone: [phone] Comment on above: Non- GFR Calc Thyroid Stimulating Hormone (TSH) 2.63 uIU/mL 0.358-3.74 [facility] Work Phone: [phone] Vitamin D 25-Hydroxy 48.6 ng/mL [facility] Work Phone: Comment on above: Vitamin D 25(OH) Sta tus Range Deficiency <20 ng/mL (50nmol/L) Insufficiency 20 - 30 ng/mL (50 - 75 nmol/L) Sufficiency 30 - 100 ng/mL (75 - 250 nmol/L) Toxicity >100 ng/mL (>250 nmol/L) Platelets bldon 09-30-2022 Platelets (Bld) [#/Vol] 292 10*3/uL 150-450 [facility] Work Phone: Serum or plasma albumin dequan urement (mass/volume)on 09-30-2022 Albumin [Mass/Vol] 3.9 g/dL 3.2-5.0 [facility] Work Phone: Serum or plasma albumin/glob ulin mass ratioon 09-30-2022 Albumin/Globulin [Mass ratio] 1.1 {ratio} 0.9-2.4 [facility] Work Phone: [phone] Serum or plasma calcium dequan urement (mass/volume)on 09-30-2022 Calcium [Mass/Vol] 9.1 mg/dL 8.5-10.1 [facility] Work Phone: Serum or plasma cholesterol in HDL measurement (mass/volume)on 09-30-2022 Cholesterol in HDL [Mass/Vol] 45 mg/dL >40 [facility] Work Phone: Comment on above: The drugs N-Acetylcy steine and Metamizole may falsely depress this assay. Reference Range HDL <40 mg/dL Low HDL Cholesterol HDL >or= 60 mg/dL High HDL Cholesterol Serum or plasma cholesterol in VLDL measurement (mass/volume)on 09-30-2022 Cholesterol in VLDL [Mass/Vol] 53 mg/dL 5-40 [facility] Work Phone: [phone] Serum or plasma creatinine m easurement (mass/volume)on 09-30-2022 Creatinine [Mass/Vol] 0.86 mg/dL 0.55-1.02 [facility] Work Phone: Comment on above: The validity of the calculated GFR & GFRAA in patients over 70 years has not been determined. Clinical correlation is essential. Serum or plasma low density lipoprotein (LDL) cholesterol measurement (mass/volume)on 09-30-2022 Cholesterol in LDL [Mass/Vol] 99 mg/dL 0-130 [facility] Work Phone: Serum or plasma urea nitroge n measurement (mass/volume)on 09-30-2022 Urea nitrogen [Mass/Vol] 23 mg/dL 7-18 [facility] Work Phone: [phone] Thin prep Papanicolaou smear with manual screeningon 09-30-2022 Thin prep Papanicolaou smear with manual screening 33 U/L 15-37 [facility] Work Phone: [phone] Thin prep Papanicolaou smear with manual screening 10 5-15 [facility] Work Phone: [phone] Whole blood hemoglobin A1c/t otal hemoglobin ratio (mass fraction)on 09-30-2022 HbA1c (Bld) [Mass fraction] 6.4 % 3.8-5.6 [facility] Work Phone: [phone] Comment on above: Normal < 5.7 % Predi abetic 5.7 - 6.4 % Diabetic >or= 6.5 % Please note range changes. Absolute lymphocyte counton 07-14-2022 Lymphocytes Auto (Unsp spec) [#/Vol] 1.56 10*3/uL 0.83-4.51 [facility] Work Phone: Basophil percentageon 2021 Basophils/100 WBC (Bld) 0.4 % 0-[address] [facility] Work Phone: [phone] Bilirubin [Mass/Vol] 1.00 mg/dL 0.20-1.00 [facility] Work Phone: [phone] Comment on above: For patients on eltr ombopag therapy, use of Dimension [place] TBIL is not recommended. Chloride [Moles/Vol] 98 mmol/L 98-107 [facility] Work Phone: Eosinophils/100 WBC (Bld) 1.4 % 0-5 [facility] Work Phone: Glucose [Mass/Vol] 139 mg/dL 74-106 [facility] Work Phone: Comment on above: Fasting Glucose resu lt greater than or equal to 126 mg/dL suggests DIABETES MELLITUS per A.D.A. criteria. Neutrophils (Bld) [#/Vol] 10.1 10*3/uL 2.0-7.7 [facility] Work Phone: Neutrophils/100 WBC (Bld) 76.7 % 47-70 [facility] Work Phone: Potassium [Moles/Vol] 3.5 mmol/L 3.5-5.1 [facility] Work Phone: Protein [Mass/Vol] 6.1 g/dL 6.4-8.2 [facility] Work Phone: Sodium [Moles/Vol] 135 mmol/L 136-145 [facility] Work Phone: WBC (Bld) [#/Vol] 13.1 10*3/uL 4.4-11.0 [facility] Work Phone: Blood erythrocytes count (nu mber/volume)on 07-14-2022 RBC (Bld) [#/Vol] 3.79 10*6/uL 4.2-5.4 [facility] Work Phone: Blood hemoglobin measurement (mass/volume)on 07-14-2022 Hemoglobin (Bld) [Mass/Vol] 11.3 g/dL 12.0-15.0 [facility] Work Phone: Blood lymphocytes/100 leukoc yteson 07-14-2022 Lymphocytes/100 WBC (Bld) 11.9 % 19-41 [facility] Work Phone: Blood monocytes/100 leukocyt eson 07-14-2022 Monocytes/100 WBC (Bld) 8.8 % 0-[address] [facility] Work Phone: Blood platelet mean volumeon 07-14-2022 Platelet mean volume (Bld) [Entitic vol] 10.5 fL 6.2-12.0 [facility] Work Phone: [phone] Determination of erythrocyte mean corpuscular volume (MCV)on 07-14-2022 MCV (RBC) [Entitic vol] 90.2 fL 81-[address] [facility] Work Phone: [phone] Hematocrit Auto (Bld) [Volum e fraction]on 07-14-2022 Hematocrit (Bld) [Volume fraction] 34.2 % 37-47 [facility] Work Phone: [phone] Laboratory - Chemistry and C hemistry - challengeon 07-14-2022 ALP [Catalytic activity/Vol] 101 U/L 45-117 [facility] Work Phone: [phone] ALT [Catalytic activity/Vol] 41 U/L 13-56 [facility] Work Phone: [phone] CO2 [Moles/Vol] 28.0 mmol/L 21.0-32.0 [facility] Work Phone: [phone] Globulin (S) [Mass/Vol] 3.5 g/dL 2.2-4.[address] [facility] Work Phone: [phone] Urea nitrogen/Creatinine [Mass ratio] 18.6 mg/mg 10-20 [facility] Work Phone: [phone] Laboratory - Hematology and Cell countson 07-14-2022 Erythrocyte distribution width (RBC) [Entitic vol] 42.1 fL 35.1-43.9 [facility] Work Phone: [phone] Erythrocyte distribution width (RBC) [Ratio] 12.8 % 11.6-14.6 [facility] Work Phone: [phone] Immature granulocytes/100 WBC (Bld) 0.800 % 0.0-0.9 [facility] Work Phone: [phone] Comment on above: IG% - Immature Granu locytes (promyelocytes, myelocytes and metamyelocytes) > 1% indicates that a LEFT SHIFT is Present. MCH (RBC) [Entitic mass] 29.8 pg 27.0-32.0 [facility] Work Phone: Nucleated RBC/100 WBC (Bld) [Ratio] 0 % 0-5 [facility] Work Phone: [phone] MCHC Auto (RBC) [Mass/Vol]on 07-14-2022 MCHC (RBC) [Mass/Vol] 33.0 g/dL 32-36 [facility] Work Phone: No Panel Informationon 07-14 Estimated Creatinine Clearance Calc 50.41 ml/min [facility] Work Phone: [phone] Estimated GFR (MDRD) Amer 130 mL/min >60 [facility] Work Phone: [phone] Comment on above: GFR Calc Estimated GFR (MDRD) Non-Af Amer 108 mL/min >60 [facility] Work Phone: Comment on above: Non- GFR Calc Platelets bldon 07-14-2022 Platelets (Bld) [#/Vol] 239 10*3/uL 150-450 [facility] Work Phone: [phone] Serum or plasma albumin dequan urement (mass/volume)on 07-14-2022 Albumin [Mass/Vol] 2.6 g/dL 3.2-5.0 [facility] Work Phone: Serum or plasma albumin/glob ulin mass ratioon 07-14-2022 Albumin/Globulin [Mass ratio] 0.7 {ratio} 0.9-2.4 [facility] Work Phone: [phone] Serum or plasma calcium dequan urement (mass/volume)on 07-14-2022 Calcium [Mass/Vol] 8.3 mg/dL 8.5-10.1 [facility] Work Phone: [phone] Serum or plasma creatinine m easurement (mass/volume)on 07-14-2022 Creatinine [Mass/Vol] 0.59 mg/dL 0.55-1.02 [facility] Work Phone: Comment on above: The validity of the calculated GFR & GFRAA in patients over 70 years has not been determined. Clinical correlation is essential. Serum or plasma urea nitroge n measurement (mass/volume)on 07-14-2022 Urea nitrogen [Mass/Vol] 11 mg/dL 7-18 [facility] Work Phone: Thin prep Papanicolaou smear with manual screeningon 07-14-2022 Thin prep Papanicolaou smear with manual screening 25 U/L 15-37 [facility] Work Phone: Thin prep Papanicolaou smear with manual screening 9 5-15 [facility] Work Phone: Blood manual differential co mment interpretation (narrative result)on 07-13-2022 Manual differential comment Ananth (Bld) [Interp] SCANNED [facility] Work Phone: Giardia lamblia ag stool EIA on 07-13-2022 G. lamblia Ag IA Ql (Stl) Negative Negative [facility] Work Phone: Comment on above: Performed at: [place] [id number] Director: Rick Meadows PhD, Phone: [phone] Laboratory - Chemistry and C hemistry - challengeon 07-13-2022 Magnesium [Mass/Vol] 1.8 mg/dL 1.6-2.6 [facility] Work Phone: No Panel Informationon 07-13 Thyroid Stimulating Hormone (TSH) 0.92 uIU/mL 0.358-3.74 [facility] Work Phone: Review by pathologiston Pathologist review Ananth (Unsp spec) [Interp] Aline mccormick [facility] Work Phone: Pathologist review Ananth (Unsp spec) [Interp] Reviewed [facility] Work Phone: Comment on above: Previous reported re sult: Aline mccormick Edited by: RGOOD on 07/16/22:1342Neutrophilic leukocytosis.Clinical correlation necessary.Linden Urena M.D. 07/16/22 AMENDED REPORT 07/16/22 1342 PATH REV previously reported as: Aline mccormick Absolute lymphocyte counton 07-12-2022 Lymphocytes Auto (Unsp spec) [#/Vol] 1.71 10*3/uL 0.83-4.51 [facility] Work Phone: Basophil percentageon 2021 Basophils/100 WBC (Bld) 0.2 % 0-[address] [facility] Work Phone: Bilirubin [Mass/Vol] 1.60 mg/dL 0.20-1.00 [facility] Work Phone: Comment on above: For patients on eltr ombopag therapy, use of Dimension [place] TBIL is not recommended. Chloride [Moles/Vol] 97 mmol/L 98-107 [facility] Work Phone: Eosinophils/100 WBC (Bld) 0.3 % 0-5 [facility] Work Phone: Glucose [Mass/Vol] 159 mg/dL 74-106 [facility] Work Phone: Comment on above: Fasting Glucose resu lt greater than or equal to 126 mg/dL suggests DIABETES MELLITUS per A.D.A. criteria. Neutrophils (Bld) [#/Vol] 12.2 10*3/uL 2.0-7.7 [facility] Work Phone: Neutrophils/100 WBC (Bld) 78.8 % 47-70 [facility] Work Phone: Potassium [Moles/Vol] 3.2 mmol/L 3.5-5.1 [facility] Work Phone: Protein [Mass/Vol] 7.0 g/dL 6.4-8.2 [facility] Work Phone: Sodium [Moles/Vol] 135 mmol/L 136-145 [facility] Work Phone: WBC (Bld) [#/Vol] 15.5 10*3/uL 4.4-11.0 [facility] Work Phone: Blood erythrocytes count (nu mber/volume)on 07-12-2022 RBC (Bld) [#/Vol] 4.28 10*6/uL 4.2-5.4 [facility] Work Phone: Blood hemoglobin measurement (mass/volume)on 07-12-2022 Hemoglobin (Bld) [Mass/Vol] 12.7 g/dL 12.0-15.0 [facility] Work Phone: Blood lymphocytes/100 leukoc yteson 07-12-2022 Lymphocytes/100 WBC (Bld) 11.1 % 19-41 [facility] Work Phone: [phone] Blood monocytes/100 leukocyt eson 07-12-2022 Monocytes/100 WBC (Bld) 9.1 % 0-[address] [facility] Work Phone: Blood platelet mean volumeon 07-12-2022 Platelet mean volume (Bld) [Entitic vol] 11.1 fL 6.2-12.0 [facility] Work Phone: Determination of erythrocyte mean corpuscular volume (MCV)on 07-12-2022 MCV (RBC) [Entitic vol] 87.4 fL 81-[address] [facility] Work Phone: Direct bilirubinon 2 Bilirubin.direct [Mass/Vol] 0.40 mg/dL 0.00-0.30 [facility] Work Phone: Hematocrit Auto (Bld) [Volum e fraction]on 07-12-2022 Hematocrit (Bld) [Volume fraction] 37.4 % 37-47 [facility] Work Phone: Laboratory - Chemistry and C hemistry - challengeon 07-12-2022 ALP [Catalytic activity/Vol] 145 U/L 45-117 [facility] Work Phone: ALT [Catalytic activity/Vol] 57 U/L 13-56 [facility] Work Phone: CO2 [Moles/Vol] 28.0 mmol/L 21.0-32.0 [facility] Work Phone: Globulin (S) [Mass/Vol] 3.8 g/dL 2.2-4.[address] [facility] Work Phone: [phone] Urea nitrogen/Creatinine [Mass ratio] 17.6 mg/mg 10-20 [facility] Work Phone: [phone] Laboratory - Hematology and Cell countson 07-12-2022 Erythrocyte distribution width (RBC) [Entitic vol] 40.8 fL 35.1-43.9 [facility] Work Phone: [phone] Erythrocyte distribution width (RBC) [Ratio] 13.0 % 11.6-14.6 [facility] Work Phone: [phone] Immature granulocytes/100 WBC (Bld) 0.500 % 0.0-0.9 [facility] Work Phone: [phone] Comment on above: IG% - Immature Granu locytes (promyelocytes, myelocytes and metamyelocytes) > 1% indicates that a LEFT SHIFT is Present. MCH (RBC) [Entitic mass] 29.7 pg 27.0-32.0 [facility] Work Phone: [phone] Nucleated RBC/100 WBC (Bld) [Ratio] 0 % 0-5 [facility] Work Phone: [phone] MCHC Auto (RBC) [Mass/Vol]on 07-12-2022 MCHC (RBC) [Mass/Vol] 34.0 g/dL 32-36 [facility] Work Phone: [phone] Panel Informationon 07-12 Estimated Creatinine Clearance Calc 59.30 ml/min [facility] Work Phone: [phone] Estimated GFR (MDRD) Amer 85 mL/min >60 [facility] Work Phone: [phone] Comment on above: GFR Calc Estimated GFR (MDRD) Non-Af Amer 71 mL/min >60 [facility] Work Phone: [phone] Comment on above: Non- GFR Calc Platelets bldon 07-12-2022 Platelets (Bld) [#/Vol] 237 10*3/uL 150-450 [facility] Work Phone: [phone] Serum or plasma albumin dequan urement (mass/volume)on 07-12-2022 Albumin [Mass/Vol] 3.2 g/dL 3.2-5.0 [facility] Work Phone: Serum or plasma calcium dequan urement (mass/volume)on 07-12-2022 Calcium [Mass/Vol] 9.2 mg/dL 8.5-10.1 [facility] Work Phone: Serum or plasma creatinine m easurement (mass/volume)on 07-12-2022 Creatinine [Mass/Vol] 0.85 mg/dL 0.55-1.02 [facility] Work Phone: Comment on above: The validity of the calculated GFR & GFRAA in patients over 70 years has not been determined. Clinical correlation is essential. Serum or plasma urea nitroge n measurement (mass/volume)on 07-12-2022 Urea nitrogen [Mass/Vol] 15 mg/dL 7-18 [facility] Work Phone: [phone] Thin prep Papanicolaou smear with manual screeningon 07-12-2022 Thin prep Papanicolaou smear with manual screening 33 U/L 15-37 [facility] Work Phone: Thin prep Papanicolaou smear with manual screening 10 5-15 [facility] Work Phone: [phone] Absolute lymphocyte counton 07-11-2022 Lymphocytes Auto (Unsp spec) [#/Vol] 1.61 10*3/uL 0.83-4.51 [facility] Work Phone: [phone] Basophil percentageon 2021 Basophil percentage 0-5 SEEN /hpf 0-5 [facility] Work Phone: [phone] Basophils/100 WBC (Bld) 0.3 % 0-[address] [facility] Work Phone: [phone] Bilirubin [Mass/Vol] 1.20 mg/dL 0.20-1.00 [facility] Work Phone: Comment on above: For patients on eltr ombopag therapy, use of Dimension [place] TBIL is not recommended. Chloride [Moles/Vol] 98 mmol/L 98-107 [facility] Work Phone: Eosinophils/100 WBC (Bld) 0.2 % 0-5 [facility] Work Phone: Glucose [Mass/Vol] 180 mg/dL 74-106 [facility] Work Phone: Comment on above: Fasting Glucose resu lt greater than or equal to 126 mg/dL suggests DIABETES MELLITUS per A.D.A. criteria. Neutrophils (Bld) [#/Vol] 15.8 10*3/uL 2.0-7.7 [facility] Work Phone: Neutrophils/100 WBC (Bld) 82.2 % 47-70 [facility] Work Phone: Potassium [Moles/Vol] 4.0 mmol/L 3.5-5.1 [facility] Work Phone: Protein [Mass/Vol] 7.3 g/dL 6.4-8.2 [facility] Work Phone: [phone] Sodium [Moles/Vol] 136 mmol/L 136-145 [facility] Work Phone: WBC (Bld) [#/Vol] 19.2 10*3/uL 4.4-11.0 [facility] Work Phone: Bilirubin Test strip Ql (U)o n 07-11-2022 Bilirubin Ql (U) Negative Negative [facility] Work Phone: [phone] Blood erythrocytes count (nu mber/volume)on 07-11-2022 RBC (Bld) [#/Vol] 4.60 10*6/uL 4.2-5.4 [facility] Work Phone: Blood hemoglobin measurement (mass/volume)on 07-11-2022 Hemoglobin (Bld) [Mass/Vol] 13.7 g/dL 12.0-15.0 [facility] Work Phone: Blood lymphocytes/100 leukoc yteson 07-11-2022 Lymphocytes/100 WBC (Bld) 8.4 % 19-41 [facility] Work Phone: Blood manual differential co mment interpretation (narrative result)on 07-11-2022 Manual differential comment Ananth (Bld) [Interp] SEE COMMENT [facility] Work Phone: Comment on above: MONOCYTOSIS NOTED Blood monocytes/100 leukocyt eson 07-11-2022 Monocytes/100 WBC (Bld) 8.3 % 0-[address] [facility] Work Phone: [phone] Blood platelet adequacy dete ction by light microscopyon 07-11-2022 Platelets LM Ql (Bld) ADEQUATE [facility] Work Phone: [phone] Blood platelet mean volumeon 07-11-2022 Platelet mean volume (Bld) [Entitic vol] 11.2 fL 6.2-12.0 [facility] Work Phone: [phone] Determination of erythrocyte mean corpuscular volume (MCV)on 07-11-2022 MCV (RBC) [Entitic vol] 87.8 fL 81-[address] [facility] Work Phone: [phone] Hematocrit Auto (Bld) [Volum e fraction]on 07-11-2022 Hematocrit (Bld) [Volume fraction] 40.4 % 37-47 [facility] Work Phone: [phone] Ketones Test strip Ql (U)on 07-11-2022 Ketones Ql (U) 50 mg/dl Negative [facility] Work Phone: [phone] Laboratory - Chemistry and C hemistry - challengeon 07-11-2022 ALP [Catalytic activity/Vol] 181 U/L 45-117 [facility] Work Phone: ALT [Catalytic activity/Vol] 73 U/L 13-56 [facility] Work Phone: [phone] CO2 [Moles/Vol] 28.0 mmol/L 21.0-32.0 [facility] Work Phone: [phone] Globulin (S) [Mass/Vol] 3.9 g/dL 2.2-4.[address] [facility] Work Phone: [phone] Lipase [Catalytic activity/Vol] 65 U/L 73-393 [facility] Work Phone: [phone] Urea nitrogen/Creatinine [Mass ratio] 25.0 mg/mg 10-20 [facility] Work Phone: [phone] Laboratory - Hematology and Cell countson 07-11-2022 Anisocytosis Ql (Bld) [facility] Work Phone: [phone] Erythrocyte distribution width (RBC) [Entitic vol] 40.9 fL 35.1-43.9 [facility] Work Phone: [phone] Erythrocyte distribution width (RBC) [Ratio] 12.8 % 11.6-14.6 [facility] Work Phone: [phone] Immature granulocytes/100 WBC (Bld) 0.600 % 0.0-0.9 [facility] Work Phone: [phone] Comment on above: IG% - Immature Granu locytes (promyelocytes, myelocytes and metamyelocytes) > 1% indicates that a LEFT SHIFT is Present. MCH (RBC) [Entitic mass] 29.8 pg 27.0-32.0 [facility] Work Phone: [phone] Nucleated RBC/100 WBC (Bld) [Ratio] 0 % 0-5 [facility] Work Phone: [phone] MCHC Auto (RBC) [Mass/Vol]on 07-11-2022 MCHC (RBC) [Mass/Vol] 33.9 g/dL 32-36 [facility] Work Phone: [phone] Mucus LM Ql (Urine sed)on Mucus Ql (Urine sed) 0 SEEN /hpf [facility] Work Phone: [phone] Nitrite Test strip Ql (U)on 07-11-2022 Nitrite Ql (U) Negative Negative [facility] Work Phone: [phone] Panel Informationon 07-11 Estimated Creatinine Clearance Calc 52.51 ml/min [facility] Work Phone: [phone] Estimated GFR (MDRD) Amer 74 mL/min >60 [facility] Work Phone: [phone] Comment on above: GFR Calc Estimated GFR (MDRD) Non-Af Amer 61 mL/min >60 [facility] Work Phone: [phone] Comment on above: Non- GFR Calc Platelets bldon 07-11-2022 Platelets (Bld) [#/Vol] 283 10*3/uL 150-450 [facility] Work Phone: [phone] Protein Test strip Ql (U)on 07-11-2022 Protein Ql (U) 15 mg/dl Negative [facility] Work Phone: [phone] RBC morphologyon 07-11-2022 RBC morphology finding Nom (Bld) N CHROM NORMAL NORM C&C [facility] Work Phone: [phone] Review by pathologiston Pathologist review Ananth (Unsp spec) [Interp] Reviewed [facility] Work Phone: [phone] Comment on above: Previous reported re sult: Aline cmcormick Edited by: JANEE on 07/12/22:1506Neutrophilic leukocytosis.Clinical correlation necessary.Linden Urena M.D. 07/12/22 AMENDED REPORT 07/12/22 1506 PATH REV previously reported as: March anny Serum or plasma albumin dequan urement (mass/volume)on 07-11-2022 Albumin [Mass/Vol] 3.4 g/dL 3.2-5.0 [facility] Work Phone: [phone] Serum or plasma albumin/glob ulin mass ratioon 07-11-2022 Albumin/Globulin [Mass ratio] 0.9 {ratio} 0.9-2.4 [facility] Work Phone: [phone] Serum or plasma calcium dequan urement (mass/volume)on 07-11-2022 Calcium [Mass/Vol] 9.7 mg/dL 8.5-10.1 [facility] Work Phone: [phone] Serum or plasma creatinine m easurement (mass/volume)on 07-11-2022 Creatinine [Mass/Vol] 0.96 mg/dL 0.55-1.02 [facility] Work Phone: [phone] Comment on above: The validity of the calculated GFR & GFRAA in patients over 70 years has not been determined. Clinical correlation is essential. Serum or plasma urea nitroge n measurement (mass/volume)on 07-11-2022 Urea nitrogen [Mass/Vol] 24 mg/dL 7-18 [facility] Work Phone: Squamous epithelial cells de tection in urine sediment by light microscopyon 07-11-2022 Epithelial cells.squamous LM Ql (Urine sed) 0 SEEN /hpf 5-10 [facility] Work Phone: [phone] Thin prep Papanicolaou smear with manual screeningon 07-11-2022 Thin prep Papanicolaou smear with manual screening 53 U/L 15-37 [facility] Work Phone: [phone] Thin prep Papanicolaou smear with manual screening 10 5-15 [facility] Work Phone: [phone] Urine blood detectionon RBC Ql (U) Negative Negative [facility] Work Phone: RBC Ql (U) 0 SEEN /hpf 0-5 [facility] Work Phone: Urine clarityon 07-11-2022 Clarity (U) Clear Clear [facility] Work Phone: Urine color determinationon 07-11-2022 Color (U) Yellow Yellow [facility] Work Phone: Urine glucose detectionon Glucose Ql (U) Normal mg/dl Normal [facility] Work Phone: Urine leukocyte esterase det ection by dipstickon 07-11-2022 Leukocyte esterase Test strip Ql (U) 100 /ul Negative [facility] Work Phone: [phone] Urine pHon 07-11-2022 pH (U) 6.5 [pH] 5.0 - 8.0 [facility] Work Phone: [phone] Urine sediment bacteria coun t by microscopy (number/high power field)on 07-11-2022 Bacteria LM.HPF (Urine sed) [#/Area] 0 /[HPF] None Seen [facility] Work Phone: [phone] Urine sediment renal epithel ial cell count by microscopy (number/high power field)on 07-11-2022 Epithelial cells.renal LM.HPF (Urine sed) [#/Area] 0 /[HPF] 0-5 [facility] Work Phone: Urine specific gravity measu rementon 07-11-2022 Specific gravity (U) [Rel density] 1.010 1.002-1.030 [facility] Work Phone: Urobilinogen Auto test strip Ql (U)on 07-11-2022 Urobilinogen Ql (U) 1 mg/dl Normal [facility] Work Phone: .Auto Diffon 07-10-2022 Basophil, Absolute 0.0 10 3/mcL Normal 0.0-0.2 [facility] ([place]) Comment on above: Performed By: #### Luz TINOCO, BMP #### [address] [address] Basophils/100 WBC (Bld) 0.1 % Normal 0.0-2.5 [facility] ([place]) Comment on above: Performed By: #### Luz TINOCO, BMP #### [address] [address] Eosinophil, Absolute 0.0 10 3/mcL Normal 0.0-0.4 [facility] ([place]) Comment on above: Performed By: #### Luz TINOCO, BMP #### [address] [address] Eosinophils/100 WBC (Bld) 0.1 % Normal 0.0-7.0 [facility] ([place]) Comment on above: Performed By: #### Luz TINOCO, BMP #### [address] [address] Lymphocyte, Absolute 1.5 10 3/mcL Normal 0.8-3.9 [facility] ([place]) Comment on above: Performed By: #### Luz TINOCO, BMP #### [address] [address] Lymphocytes/100 WBC (Bld) 9.9 % Low 10.0-50.0 [facility] ([place]) Comment on above: Performed By: #### Luz TINOCO, BMP #### [address] [address] Monocyte, Absolute 1.3 10 3/mcL High 0.2-1.0 [facility] ([place]) Comment on above: Performed By: #### G FR, BMP #### [address] [address] Monocytes/100 WBC (Bld) 8.6 % Normal 1.7-13.0 [facility] ([place]) Comment on above: Performed By: #### G FR, BMP #### [address] [address] Neutrophils/100 WBC (Bld) 81.3 % High 37.0-80.0 [facility] ([place]) Comment on above: Performed By: #### G FR, BMP #### [address] [address] .GFRon 07-10-2022 GFR Non- 51 ml/min/1.73sqm Normal [facility] ([place]) Comment on above: Result Comment: GFR Population mean for , Non- Americans Ages 20-29 = 116 mL/min/1.73 sq.m. Ages 30-39 = 107 mL/min/1.73 sq.m. Ages 40-49 = 99 mL/min/1.73 sq.m. Ages 50-59 = 93 mL/min/1.73 sq.m. Ages 60-69 = 85 mL/min/1.73 sq.m. Ages 70+ = 75 mL/min/1.73 sq.m. Chronic Kidney Disease: Less than 60 mL/min/1.73 square meters End Stage Renal Disease: Less than 15 mL/min/1.73 square meters Performed By: #### G FR, BMP #### [address] [address] GFR 62 ml/min/1.73sqm Normal [facility] ([place]) Comment on above: Result Comment: GFR Population mean for , Non- Americans Ages 20-29 = 116 mL/min/1.73 sq.m. Ages 30-39 = 107 mL/min/1.73 sq.m. Ages 40-49 = 99 mL/min/1.73 sq.m. Ages 50-59 = 93 mL/min/1.73 sq.m. Ages 60-69 = 85 mL/min/1.73 sq.m. Ages 70+ = 75 mL/min/1.73 sq.m. Chronic Kidney Disease: Less than 60 mL/min/1.73 square meters End Stage Renal Disease: Less than 15 mL/min/1.73 square meters Performed By: #### Luz TINOCO, BMP #### [address] [address] .NEUABSon 07-10-2022 Neutrophil, Absolute 12.3 10 3/mcL High 2.9-6.2 [facility] ([place]) Comment on above: Performed By: #### Luz TINOCO, BMP #### [address] [address] BMPon 07-10-2022 BUN/Creatinine Ratio 25 ratio Normal 7-27 [facility] ([place]) Comment on above: Performed By: #### Luz TINOCO, BMP #### [address] [address] Calcium [Mass/Vol] 8.9 mg/dL Normal 8.4-10.2 [facility] ([place]) Comment on above: Performed By: #### Luz TINOCO, BMP #### [address] [address] Chloride [Moles/Vol] 98 mmol/L Normal 98-107 [facility] ([place]) Comment on above: Performed By: #### Luz TINOCO, BMP #### [address] [address] CO2 [Moles/Vol] 31 mmol/L Normal 23-31 [facility] ([place]) Comment on above: Performed By: #### Luz TINOCO, BMP #### [address] [address] Creatinine [Mass/Vol] 1.07 mg/dL High 0.55-1.02 [facility] ([place]) Comment on above: Performed By: #### Luz TINOCO, BMP #### [address] [address] Electrolyte Balance 6.0 mEq/L Normal 4.0-15.0 [facility] ([place]) Comment on above: Performed By: #### G , BMP #### [address] [address] Glucose [Mass/Vol] 153 mg/dL High 80-115 [facility] ([place]) Comment on above: Performed By: #### G , BMP #### [address] [address] Potassium [Moles/Vol] 4.8 mmol/L Normal 3.5-5.1 [facility] ([place]) Comment on above: Performed By: #### Luz TINOCO, BMP #### [address] [address] Sodium [Moles/Vol] 135 mmol/L Low 136-145 [facility] ([place]) Comment on above: Performed By: #### Luz TINOCO, BMP #### [address] [address] Urea nitrogen [Mass/Vol] 27 mg/dL High 7-18 [facility] ([place]) Comment on above: Performed By: #### Luz TINOCO, BMP #### [address] [address] CBCon 07-10-2022 Erythrocyte distribution width (RBC) [Ratio] 13.4 % Normal 11.5-14.5 [facility] ([place]) Comment on above: Performed By: #### Luz TINOCO, BMP #### [address] [address] Hematocrit (Bld) [Volume fraction] 35.0 % Low 37.0-47.0 [facility] ([place]) Comment on above: Performed By: #### Luz TINOCO, BMP #### [address] [address] Hgb 12.0 G/dL Normal 12.0-16.0 [facility] ([place]) Comment on above: Performed By: #### Luz TINOCO, BMP #### [address] [address] MCH (RBC) [Entitic mass] 29.5 pg Normal 27.0-31.2 [facility] ([place]) Comment on above: Performed By: #### Luz TINOCO, BMP #### [address] [address] MCHC 34.2 G/dL Normal 33.0-37.0 [facility] ([place]) Comment on above: Performed By: #### Luz TINOCO, BMP #### [address] [address] MCV (RBC) [Entitic vol] 86.3 fL Normal 80.0-94.0 [facility] ([place]) Comment on above: Performed By: #### Luz TINOCO, BMP #### [address] [address] Platelet 196 10 3/mcL Normal 130-400 [facility] ([place]) Comment on above: Performed By: #### Luz TINOCO, BMP #### [address] [address] Platelet mean volume (Bld) [Entitic vol] 8.7 fL Normal 7.4-10.4 [facility] ([place]) Comment on above: Performed By: #### Luz TINOCO, BMP #### [address] [address] RBC 4.05 10 6/mcL Low 4.20-5.40 [facility] ([place]) Comment on above: Performed By: #### Luz TINOCO, BMP #### [address] [address] WBC 15.1 10 3/mcL High 4.6-10.8 [facility] ([place]) Comment on above: Performed By: #### Luz TINOCO, BMP #### [address] [address] LABORATORYOrdered By: Jennifer Bardales on 07-10-2022 Basophil, Absolute 0.0 103/mcL Invalid Interpretation Code 0.0 - 0.2 10^3/mcL AO Workflow SS Basophils/100 WBC (Bld) 0.1 % Invalid Interpretation Code 0.0 - 2.5 % AO Workflow SS Calcium [Mass/Vol] 8.9 mg/dL Invalid Interpretation Code 8.4 - 10.2 mg/dL AO ADM SS Chloride [Moles/Vol] 98 mmol/L Invalid Interpretation Code 98 - 107 mmol/L AO ADM SS CO2 [Moles/Vol] 31 mmol/L Invalid Interpretation Code 23 - 31 mmol/L AO ADM SS Creatinine [Mass/Vol] 1.07 mg/dL Invalid Interpretation Code 0.55 - 1.02 mg/dL AO ADM SS Electrolyte Balance 6.0 mEq/L Invalid Interpretation Code 4.0 - 15.0 mEq/L AO ADM SS Eosinophil, Absolute 0.0 103/mcL Invalid Interpretation Code 0.0 - 0.4 10^3/mcL AO Workflow SS Eosinophils/100 WBC (Bld) 0.1 % Invalid Interpretation Code 0.0 - 7.0 % AO Workflow SS Erythrocyte distribution width (RBC) [Ratio] 13.4 % Invalid Interpretation Code 11.5 - 14.5 % AO Workflow SS Glucose [Mass/Vol] 153 mg/dL Invalid Interpretation Code 80 - 115 mg/dL AO ADM SS Hematocrit (Bld) [Volume fraction] 35.0 % Invalid Interpretation Code 37.0 - 47.0 % AO Workflow SS Hemoglobin (Bld) [Mass/Vol] 12.0 G/dL Invalid Interpretation Code 12.0 - 16.0 G/dL AO Workflow SS Lymphocyte, Absolute 1.5 103/mcL Invalid Interpretation Code 0.8 - 3.9 10^3/mcL AO Workflow SS Lymphocytes/100 WBC (Bld) 9.9 % Invalid Interpretation Code 10.0 - 50.0 % AO Workflow SS MCH (RBC) [Entitic mass] 29.5 pg Invalid Interpretation Code 27.0 - 31.2 pg AO Workflow SS MCHC 34.2 G/dL Invalid Interpretation Code 33.0 - 37.0 G/dL AO Workflow SS MCV (RBC) [Entitic vol] 86.3 fL Invalid Interpretation Code 80.0 - 94.0 fL AO Workflow SS Monocyte, Absolute 1.3 103/mcL Invalid Interpretation Code 0.2 - 1.0 10^3/mcL AO Workflow SS Monocytes/100 WBC (Bld) 8.6 % Invalid Interpretation Code 1.7 - 13.0 % AO Workflow SS Neutrophil, Absolute 12.3 103/mcL Invalid Interpretation Code 2.9 - 6.2 10^3/mcL AO Workflow SS Neutrophils/100 WBC (Bld) 81.3 % Invalid Interpretation Code 37.0 - 80.0 % AO Workflow SS Platelet mean volume (Bld) [Entitic vol] 8.7 fL Invalid Interpretation Code 7.4 - 10.4 fL AO Workflow SS Platelets (Bld) [#/Vol] 196 103/mcL Invalid Interpretation Code 130 - 400 10^3/mcL AO Workflow SS Potassium [Moles/Vol] 4.8 mmol/L Invalid Interpretation Code 3.5 - 5.1 mmol/L AO ADM SS RBC (Bld) [#/Vol] 4.05 106/mcL Invalid Interpretation Code 4.20 - 5.40 10^6/mcL AO Workflow SS Sodium [Moles/Vol] 135 mmol/L Invalid Interpretation Code 136 - 145 mmol/L AO ADM SS Urea nitrogen [Mass/Vol] 27 mg/dL Invalid Interpretation Code 7 - 18 mg/dL AO ADM SS Urea nitrogen/Creatinine [Mass ratio] 25 ratio Invalid Interpretation Code 7 - 27 ratio AO ADM SS WBC 15.1 103/mcL Invalid Interpretation Code 4.6 - 10.8 10^3/mcL AO Workflow SS LABORATORYOrdered By: SYSTEM SYSTEM on 07-10-2022 GFR 62 ml/min/1.73sqm Invalid Interpretation Code AO Chemistry S GFR Non- 51 ml/min/1.73sqm Invalid Interpretation Code AO Chemistry S Gel ABOon 07-09-2022 ABO/Rh Interp Negative Invalid Interpretation Code [facility] ([place]) Comment on above: Performed By: #### G , BMP #### [address] [address] Gel ABSon 07-09-2022 Antibody Screen Gel Negative Normal [facility] ([place]) Comment on above: Performed By: #### G , BMP #### [id number] [place], [place] [address] LABORATORYOrdered By: Halima Oneal on 07-09-2022 ABO/Rh Interp Negative Invalid Interpretation Code AO BB SS Antibody Screen Gel Negative ABSC (07/09/22 6:43 AM) Invalid Interpretation Code AO BB SS XR FLUORO 1-2 HRS TECH TIMEo n 07-09-2022 XR FLUORO 1-2 HRS TECH TIME ORIGINAL Images acquired, not reported on this accession number. Normal [facility] ([place]) XR HIP RIGHT W/PELVIS 4 VIEW Son 07-09-2022 XR HIP RIGHT W/PELVIS 4 VIEWS ORIGINAL EXAMINATION: ONE XRAY VIEW OF THE PELVIS AND TWO XRAY VIEWS RIGHT HIP 07/09/2022 9:36 am COMPARISON: None. HISTORY: ORDERING SYSTEM PROVIDED HISTORY: Reason for Exam: Status Post Arthroplasty FINDINGS: Postsurgical changes related to total right hip arthroplasty. The acetabular and femoral components are in normal alignment. No evidence of hardware failure. Small overlying soft tissue emphysema is probably postsurgical. Otherwise no acute fracture or dislocation. Left femoral head is seated over its acetabulum. Pelvic ring appears intact. Mild multifocal enthesopathy. Degenerative changes of lumbosacral spine and left hip. IMPRESSION: Postsurgical changes related to total right hip arthroplasty. No evidence of hardware failure. Interpreted by: Austen Key Preliminary Report By: Austen Key Electronically signed By Austen Key Dictated Date: 07/09/2022 9:50:34 AM Prelim Date: 07/09/2022 9:52:04 AM Sign Date: 07/09/2022 9:52:04 AM Ordering Provider: GABRIELA SUTHERLAND Normal [facility]) .Auto Diffon 06-28-2022 Basophil, Absolute 0.1 10 3/mcL Normal 0.0-0.2 [facility]) Comment on above: Performed By: #### G FR, ANSG, ALB, ABOG, BMP #### [address] [address] Basophils/100 WBC (Bld) 0.7 % Normal 0.0-2.5 [facility] ([place]) Comment on above: Performed By: #### G FR, ANSG, ALB, ABOG, BMP #### [address] [address] Eosinophil, Absolute 0.2 10 3/mcL Normal 0.0-0.4 [facility]) Comment on above: Performed By: #### G FR, ANSG, ALB, ABOG, BMP #### [address] [address] Eosinophils/100 WBC (Bld) 1.7 % Normal 0.0-7.0 [facility] ([place]) Comment on above: Performed By: #### G FR, ANSG, ALB, ABOG, BMP #### [address] [address] Lymphocyte, Absolute 2.1 10 3/mcL Normal 0.8-3.9 [facility] ([place]) Comment on above: Performed By: #### G FR, ANSG, ALB, ABOG, BMP #### [address] [address] Lymphocytes/100 WBC (Bld) 22.7 % Normal 10.0-50.0 [facility] ([place]) Comment on above: Performed By: #### G FR, ANSG, ALB, ABOG, BMP #### [address] [address] Monocyte, Absolute 0.8 10 3/mcL Normal 0.2-1.0 [facility] ([place]) Comment on above: Performed By: #### G FR, ANSG, ALB, ABOG, BMP #### [address] [address] Monocytes/100 WBC (Bld) 8.4 % Normal 1.7-13.0 [facility] ([place]) Comment on above: Performed By: #### G FR, ANSG, ALB, ABOG, BMP #### [address] [address] Neutrophils/100 WBC (Bld) 66.5 % Normal 37.0-80.0 [facility] ([place]) Comment on above: Performed By: #### G FR, ANSG, ALB, ABOG, BMP #### [address] [address] .GFRon 06-28-2022 GFR 78 ml/min/1.73sqm Normal [facility] ([place]) Comment on above: Result Comment: GFR Population mean for , Non- Americans Ages 20-29 = 116 mL/min/1.73 sq.m. Ages 30-39 = 107 mL/min/1.73 sq.m. Ages 40-49 = 99 mL/min/1.73 sq.m. Ages 50-59 = 93 mL/min/1.73 sq.m. Ages 60-69 = 85 mL/min/1.73 sq.m. Ages 70+ = 75 mL/min/1.73 sq.m. Chronic Kidney Disease: Less than 60 mL/min/1.73 square meters End Stage Renal Disease: Less than 15 mL/min/1.73 square meters Performed By: #### G FR, BMP #### [address] [address] GFR Non- 65 ml/min/1.73sqm Normal [facility] ([place]) Comment on above: Result Comment: GFR Population mean for , Non- Americans Ages 20-29 = 116 mL/min/1.73 sq.m. Ages 30-39 = 107 mL/min/1.73 sq.m. Ages 40-49 = 99 mL/min/1.73 sq.m. Ages 50-59 = 93 mL/min/1.73 sq.m. Ages 60-69 = 85 mL/min/1.73 sq.m. Ages 70+ = 75 mL/min/1.73 sq.m. Chronic Kidney Disease: Less than 60 mL/min/1.73 square meters End Stage Renal Disease: Less than 15 mL/min/1.73 square meters Performed By: #### G FR, BMP #### [address] [address] .NEUABSon 06-28-2022 Neutrophil, Absolute 6.1 10 3/mcL Normal 2.9-6.2 [facility] ([place]) Comment on above: Performed By: #### G FR, ANSG, ALB, ABOG, BMP #### [address] [address] ALBon 06-28-2022 Albumin Level 3.8 G/dL Normal 3.4-4.8 [facility] ([place]) Comment on above: Performed By: #### G FR, ANSG, ALB, ABOG, BMP #### [address] [address] BMPon 06-28-2022 BUN/Creatinine Ratio 24 ratio Normal 7-27 [facility] ([place]) Comment on above: Performed By: #### G FR, ANSG, ALB, ABOG, BMP #### [address] [address] Calcium [Mass/Vol] 9.3 mg/dL Normal 8.4-10.2 [facility] ([place]) Comment on above: Performed By: #### G FR, ANSG, ALB, ABOG, BMP #### [address] [address] Chloride [Moles/Vol] 99 mmol/L Normal 98-107 [facility] ([place]) Comment on above: Performed By: #### G FR, ANSG, ALB, ABOG, BMP #### [address] [address] CO2 [Moles/Vol] 30 mmol/L Normal 23-31 [facility] ([place]) Comment on above: Performed By: #### G FR, ANSG, ALB, ABOG, BMP #### [address] [address] Creatinine [Mass/Vol] 0.87 mg/dL Normal 0.55-1.02 [facility] ([place]) Comment on above: Performed By: #### G FR, ANSG, ALB, ABOG, BMP #### [address] [address] Electrolyte Balance 9.0 mEq/L Normal 4.0-15.0 [facility] ([place]) Comment on above: Performed By: #### G FR, ANSG, ALB, ABOG, BMP #### [address] [address] Glucose [Mass/Vol] 200 mg/dL High 80-115 [facility] ([place]) Comment on above: Performed By: #### G FR, ANSG, ALB, ABOG, BMP #### [address] [address] Potassium [Moles/Vol] 4.0 mmol/L Normal 3.5-5.1 [facility] ([place]) Comment on above: Performed By: #### G FR, ANSG, ALB, ABOG, BMP #### [address] [address] Sodium [Moles/Vol] 138 mmol/L Normal 136-145 [facility] ([place]) Comment on above: Performed By: #### G FR, ANSG, ALB, ABOG, BMP #### [address] [address] Urea nitrogen [Mass/Vol] 21 mg/dL High 7-18 [facility] ([place]) Comment on above: Performed By: #### G FR, ANSG, ALB, ABOG, BMP #### [address] [address] CBCon 06-28-2022 Erythrocyte distribution width (RBC) [Ratio] 13.0 % Normal 11.5-14.5 [facility] ([place]) Comment on above: Order Comment: Pre-A dmission Testing Performed By: #### G FR, ANSG, ALB, ABOG, BMP #### [address] [address] Hematocrit (Bld) [Volume fraction] 40.2 % Normal 37.0-47.0 [facility] ([place]) Comment on above: Order Comment: Pre-A dmission Testing Performed By: #### G FR, ANSG, ALB, ABOG, BMP #### [address] [address] Hgb 14.0 G/dL Normal 12.0-16.0 [facility] ([place]) Comment on above: Order Comment: Pre-A dmission Testing Performed By: #### G FR, ANSG, ALB, ABOG, BMP #### [address] [address] MCH (RBC) [Entitic mass] 29.8 pg Normal 27.0-31.2 [facility] ([place]) Comment on above: Order Comment: Pre-A dmission Testing Performed By: #### G FR, ANSG, ALB, ABOG, BMP #### [address] [address] MCHC 34.9 G/dL Normal 33.0-37.0 [facility] ([place]) Comment on above: Order Comment: Pre-A dmission Testing Performed By: #### G FR, ANSG, ALB, ABOG, BMP #### [place] [id number] MCV (RBC) [Entitic vol] 85.4 fL Normal 80.0-94.0 [facility] ([place]) Comment on above: Order Comment: Pre-A dmission Testing Performed By: #### G FR, ANSG, ALB, ABOG, BMP #### [place] [id number] Platelet 211 10 3/mcL Normal 130-400 [facility] ([place]) Comment on above: Order Comment: Pre-A dmission Testing Performed By: #### G FR, ANSG, ALB, ABOG, BMP #### [place] [id number] Platelet mean volume (Bld) [Entitic vol] 9.0 fL Normal 7.4-10.4 [facility] ([place]) Comment on above: Order Comment: Pre-A dmission Testing Performed By: #### G FR, ANSG, ALB, ABOG, BMP #### [place] [address] RBC 4.71 10 6/mcL Normal 4.20-5.40 [facility] ([place]) Comment on above: Order Comment: Pre-A dmission Testing Performed By: #### G FR, ANSG, ALB, ABOG, BMP #### [place] [id number] WBC 9.1 10 3/mcL Normal 4.6-10.8 [facility] ([place]) Comment on above: Order Comment: Pre-A dmission Testing Performed By: #### G FR, ANSG, ALB, ABOG, BMP #### [address] [place], [place] [address] Gel ABOon 06-28-2022 ABO/Rh Interp Negative Invalid Interpretation Code [facility] ([place]) Comment on above: Performed By: #### G , BMP #### [address] [place] [address] [place], [place] [address] Gel ABSon 06-28-2022 Antibody Screen Gel Negative Normal [facility] ([place]) Comment on above: Performed By: #### G , BMP #### [address] [place] [address] [place], [place] [address] LABORATORYOrdered By: Juan Harvey on 06-28-2022 ABO/Rh Interp Negative Invalid Interpretation Code AO BB SS Antibody Screen Gel Negative ABSC (06/28/22 10:05 AM) Invalid Interpretation Code AO BB SS LABORATORYOrdered By: Jennifer Bardales on 06-28-2022 Albumin BCP dye [Mass/Vol] 3.8 G/dL Invalid Interpretation Code 3.4 - 4.8 G/dL AO ADM SS Calcium [Mass/Vol] 9.3 mg/dL Invalid Interpretation Code 8.4 - 10.2 mg/dL AO ADM SS Chloride [Moles/Vol] 99 mmol/L Invalid Interpretation Code 98 - 107 mmol/L AO ADM SS CO2 [Moles/Vol] 30 mmol/L Invalid Interpretation Code 23 - 31 mmol/L AO ADM SS Creatinine [Mass/Vol] 0.87 mg/dL Invalid Interpretation Code 0.55 - 1.02 mg/dL AO ADM SS Electrolyte Balance 9.0 mEq/L Invalid Interpretation Code 4.0 - 15.0 mEq/L AO ADM SS Glucose [Mass/Vol] 200 mg/dL Invalid Interpretation Code 80 - 115 mg/dL AO ADM SS Potassium [Moles/Vol] 4.0 mmol/L Invalid Interpretation Code 3.5 - 5.1 mmol/L AO ADM SS Sodium [Moles/Vol] 138 mmol/L Invalid Interpretation Code 136 - 145 mmol/L AO ADM SS Urea nitrogen [Mass/Vol] 21 mg/dL Invalid Interpretation Code 7 - 18 mg/dL AO ADM SS Urea nitrogen/Creatinine [Mass ratio] 24 ratio Invalid Interpretation Code 7 - 27 ratio AO ADM SS LABORATORYOrdered By: Kacie Mcnamara on 06-28-2022 Basophil, Absolute 0.1 103/mcL Invalid Interpretation Code 0.0 - 0.2 10^3/mcL AO Workflow SS Basophils/100 WBC (Bld) 0.7 % Invalid Interpretation Code 0.0 - 2.5 % AO Workflow SS Eosinophil, Absolute 0.2 103/mcL Invalid Interpretation Code 0.0 - 0.4 10^3/mcL AO Workflow SS Eosinophils/100 WBC (Bld) 1.7 % Invalid Interpretation Code 0.0 - 7.0 % AO Workflow SS Erythrocyte distribution width (RBC) [Ratio] 13.0 % Invalid Interpretation Code 11.5 - 14.5 % AO Workflow SS Hematocrit (Bld) [Volume fraction] 40.2 % Invalid Interpretation Code 37.0 - 47.0 % AO Workflow SS Hemoglobin (Bld) [Mass/Vol] 14.0 G/dL Invalid Interpretation Code 12.0 - 16.0 G/dL AO Workflow SS Lymphocyte, Absolute 2.1 103/mcL Invalid Interpretation Code 0.8 - 3.9 10^3/mcL AO Workflow SS Lymphocytes/100 WBC (Bld) 22.7 % Invalid Interpretation Code 10.0 - 50.0 % AO Workflow SS MCH (RBC) [Entitic mass] 29.8 pg Invalid Interpretation Code 27.0 - 31.2 pg AO Workflow SS MCHC 34.9 G/dL Invalid Interpretation Code 33.0 - 37.0 G/dL AO Workflow SS MCV (RBC) [Entitic vol] 85.4 fL Invalid Interpretation Code 80.0 - 94.0 fL AO Workflow SS Monocyte, Absolute 0.8 103/mcL Invalid Interpretation Code 0.2 - 1.0 10^3/mcL AO Workflow SS Monocytes/100 WBC (Bld) 8.4 % Invalid Interpretation Code 1.7 - 13.0 % AO Workflow SS Neutrophil, Absolute 6.1 103/mcL Invalid Interpretation Code 2.9 - 6.2 10^3/mcL AO Workflow SS Neutrophils/100 WBC (Bld) 66.5 % Invalid Interpretation Code 37.0 - 80.0 % AO Workflow SS Platelet mean volume (Bld) [Entitic vol] 9.0 fL Invalid Interpretation Code 7.4 - 10.4 fL AO Workflow SS Platelets (Bld) [#/Vol] 211 103/mcL Invalid Interpretation Code 130 - 400 10^3/mcL AO Workflow SS RBC (Bld) [#/Vol] 4.71 106/mcL Invalid Interpretation Code 4.20 - 5.40 10^6/mcL AO Workflow SS WBC 9.1 103/mcL Invalid Interpretation Code 4.6 - 10.8 10^3/mcL AO Workflow SS LABORATORYOrdered By: SYSTEM SYSTEM on 06-28-2022 GFR 78 ml/min/1.73sqm Invalid Interpretation Code AO Chemistry S GFR Non- 65 ml/min/1.73sqm Invalid Interpretation Code AO Chemistry S CASE MANAGEMon 09-19-2021 CASE MANAGEM HNO ID: [id number] Author: Kerry Brar RN Service: ? Author Type: Registered Nurse Type: Care Mgt Progress Note Filed: 09/19/2021 12:28 PM Note Text: CARE MANAGEMENT DISCHARGE NOTE SERVICE DATE: 09/19/2021 SERVICE TIME: 12:26 PM LOS: 0 days Admission Date: 09/18/2021 DISCHARGE ARRANGEMENT Discharge Arrangement: Home CAREGIVER ASSESSMENT: Caregiver is ready, willing and able to meet the patient's needs as recommended by the inter-professional team:: No Caregiver needed Does the patient have an acute stroke diagnosis, or has the patient had a stroke during this admission?: No Patient's transition needs and plan for meeting these needs: Patient to discharge home with spouse and covid kit HANDOFF COMMUNICATION: Handoff to: Primary Care Physician;Other Caregiver Primary Care Physician Name/Phone: King Mullen Other Caregiver Name/Phone: [facility] TRANSPORTATION ARRANGEMENTS: Transportation Arrangements: Car Patient is ready for discharge home. [facility] notified of discharge. COVID Kit requested. SIGNATURE: Kerry Brar RN PATIENT NAME: Christina Macias DATE: September 19, 2021 TIME: 12:26 PM PAGER/CONTACT #: [phone] [facility] CASE MANAGEM HNO ID: [id number] Author: Kerry Brar RN Service: ? 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 Diverticulosis of Colon (Without Mention of Hemorrhage) Tear of Medial Cartilage Or Meniscus of Knee, Current Pes Anserinus Tendinitis Or Bursitis Localized Osteoarthrosis Not Specified Whether Primary Or Secondary, Lower Leg Senile Cataract, Unspecified Pain in Right Foot Equinus Deformity of Foot Chest Pain Carpal Tunnel Syndrome, Right Hypertriglyceridemia Secondary Hypertension Attendees Present at Rounds: Certified Personal Chef: Kerry Nurse Director Regulatory Compliance/Certified Court Interpreter Nurse Director Regulatory Compliance: Merry Staff Nurse: Nalini Needs Discussed on Rounds: Discharge Needs Plan of Care Anticipated Discharge Disposition: Home with Relative Last Vitals: BP 114/55 Pulse 64 Temp (Src) 97.5 (Oral) Resp 18 Ht 5' 6 (1.68m) Wt 185 lb (83.9kg) SpO2 93% BMI 29.87 kg/(m2). O2 Therapy: Nasal Cannula, Liters: 1.00 From home with spouse. Nursing: Respiratory Alteration Intervention(s) Plan: Assess and Monitor Respiratory Status;Apnea Assessment and Monitoring;Encourage Coughing and Deep Breathing;Plan Care for Frequent Rest Periods;Review Current Medication and Medication History and Administer Medications as Ordered;Positioning for Maximum Lung Capacity;Notify LIP for Changes to Baseline Status Respiratory Alteration Goals/Outcomes: Decrease of Respiratory Distress;Exhibits Increased Interest and Assume Responsibility for Patient's Own/Family Learning by Beginning to Look for Information and Ask Questions;Patient Demonstrates Adequate Ventilation Respiratory Goal Target Achievement Date: 09/19/21 DOCUMENTED BY: Kerry Brar RN PATIENT NAME: Christina Macias DATE: September 19, 2021 TIME: 12:21 PM CSN: [id number] Normal [facility] CBC and Differentialon 09-19 Abs Baso 0.00 k/uL Normal <0.11 [facility] Abs Preble 0.90 k/uL High <0.87 [facility] Abs Neut 5.71 k/uL Normal 1.45-7.50 [facility] ANC(includeSEG+BAND) 5.71 k/uL Normal [facility] Basophils/100 WBC (Bld) 0.0 % Normal [facility] DTYPE Manual Diff Normal [facility] Eosinophils (Bld) [#/Vol] 0.00 10*3/uL Normal <0.46 [facility] Eosinophils/100 WBC (Bld) 0.0 % Normal [facility] Erythrocyte distribution width (RBC) [Ratio] 11.9 % Normal 11.5-15.0 [facility] Hematocrit (Bld) [Volume fraction] 38.5 % Normal 36.0-46.0 [facility] Hemoglobin (Bld) [Mass/Vol] 13.3 g/dL Normal 11.5-15.5 [facility] Lymphocytes (Bld) [#/Vol] 1.55 10*3/uL Normal 1.00-4.00 [facility] Lymphocytes/100 WBC (Bld) 19.0 % Normal [facility] MCH 29.4 pG Normal 26.0-34.0 [facility] MCHC (RBC) [Mass/Vol] 34.5 g/dL Normal 30.5-36.0 [facility] MCV (RBC) [Entitic vol] 85.0 fL Normal 80.0-100.0 [facility] Monocytes/100 WBC (Bld) 11.0 % Normal [facility] Neutrophils/100 WBC (Bld) 70.0 % Normal [facility] Platelet Estimate Platelet estimate adequate Normal [facility] Platelet mean volume (Bld) [Entitic vol] 10.6 fL Normal 9.0-12.7 [facility] Platelets (Bld) [#/Vol] 241 10*3/uL Normal 150-400 [facility] RBC (Bld) [#/Vol] 4.53 10*6/uL Normal 3.90-5.20 [facility] Red Cell Morph SEE COMMENT Normal [facility] Comment on above: Result Comment: Norm al WBC (Bld) [#/Vol] 8.16 10*3/uL Normal 3.70-11.00 [facility] CNDSon 09-19-2021 [facility] HNO ID: [id number] Author: Melissa Nichols APRN.[employer] Service: Hospital Medicine Author Type: Nurse Practitioner Type: Discharge Summary Filed: 09/19/2021 11:17 AM Note Text: Attestation signed by Liliya Khan MD at 09/19/2021 11:24 AM I have reviewed pertinent vitals, labs, images and records and I agree with the findings and plan as documented. DISCHARGE SUMMARY PATIENT NAME: Christina Macias ADMISSION DATE: 09/18/2021 DISCHARGE DATE: 09/19/2021 Attending Physician: Liliya Khan MD Code Status: Not on file Highest Readmission Risk Score: 12 The 30 day readmissions risk score is derived from an internally validated risk model which evaluates patient level characteristics, utilization history, medication orders and lab results up until the day of discharge. Patients with a score of 40 or above are considered highest risk for readmission. Specific patient level drivers will be listed at the bottom of the summary. Reason for Hospitalization: pneumonia due to covid with hypoxemia Diagnosis: pneumonia due to covid with hypoxemia Hospital Course as Described to the Patient: You were admitted for pneumonia due to covid with hypoxemia . You were admitted to [facility] due to productive cough, body aches, BHATT, and poor appetite x 11 days. You were tested positive for Covid-19 infection on 09/11/2021. Your labs work up found abnormal electrolytes ( low in sodium and potassium and xray showed positive for pneumonia related to covid infection. You were treat with IV fluid and potassium placement and decadron. During your admission you were being treated with Oxygen. You remained stable on room air and did not require any oxygen. You were started on decadron for 10days until 09/18/2021. Prior to discharge, your symptoms improved. Please be sure to take your prescribed medications as instructed so that you continue treatment once you leave hospital. Also, please make every effort follow up with your primary care physician as instructed. If you notice new or worsening symptoms such as: worsening shortness of breath, sweating, lightheadedness, confusion, nausea or vomiting return to the Emergency Department immediately for further care and evaluation. Transitions of Care Critical Issues: PCP fu in 1-2 wks LABS AND PROCEDURES PENDING AT DISCHARGE: no result pending Additional Provider to Provider Information: none Operations During Hospitalization: None Procedures During Hospitalization: EKG Consulting Teams During Hospitalization: Treatment Team: Attending Provider: Liliya Khan MD Attending: Ta Benitez MD [facility] medicine team: Melissa Nichols APRN, CNP Patient Condition @ Discharge: Improved Discharge Disposition: Home/Self Care Physical Exam: General: Alert, no distress, cooperative Skin: Warm dry intact. Normal color, turgor. No rashes or lesions HEENT: No significant findings Neck: Supple, no JVD, No carotid bruits Back: Back symmetric, Normal curvature, ROM normal, No CVAT Lungs: Lungs clear to auscultation, Decreased breath sound at both bases, Good diaphragmatic excursion Cardiac: Normal S1 and S2; no rubs, murmurs, or gallops Abdomen: Soft, non tender, no distended, No masses or organomegaly, BS normal Extremities: Extremities normal, no deformities, edema, clubbing or skin discoloration. Good capillary refill., No ulcers Neuro: AANDO x 3 Grossly normal cognition, motor function, and Cranial nerves II-XII intact. Pulses: 2+ radial, 2+ dorsalis pedis Information Provided to Patient: WHAT TO DO IF YOU ARE SICK WITH CORONAVIRUS DISEASE 2019 (COVID-19) If you are sick with COVID-19 or suspect you are infected with the virus that causes COVID-19, the Centers for Disease Control and Prevention reccomends you follow the steps below to help prevent the disease from spreading to people in your home and community. Stay Home Except to Get Medical Care You should restrict activities outside your home, except for getting urgent medical care. Please call ahead before going to any medical facility. Do not go to work, school or public areas. Avoid using public transportation, ride-sharing or taxis. Separate Yourself from Other People and Animals in Your Home People: As much as possible, you should stay in a specific room and away from other people in your home. Also, you should use a separate bathroom, if available. Animals: Although there have not been reports of pets becoming sick with COVID-19, it is still recommended that you avoid contact with your pets while you are sick. If another member of your household is not able to care for them, wash your hands before and after you interact with pets and wear a face mask. Call Ahead Before Visiting Y (more content not included)... Normal [facility] Comp Metabolic Panelon 09-19 Albumin [Mass/Vol] 4.0 g/dL Normal 3.9-4.9 [facility] ALP [Catalytic activity/Vol] 81 U/L Normal 34-123 [facility] ALT [Catalytic activity/Vol] 32 U/L Normal 7-38 [facility] Anion gap [Moles/Vol] 11 mmol/L Normal 9-18 [facility] AST [Catalytic activity/Vol] 27 U/L Normal 13-35 [facility] Bilirubin [Mass/Vol] 0.8 mg/dL Normal 0.2-1.3 [facility] Calcium [Mass/Vol] 9.2 mg/dL Normal 8.5-10.2 [facility] Chloride [Moles/Vol] 96 mmol/L Low 97-105 [facility] CO2 [Moles/Vol] 27 mmol/L Normal 22-30 [facility] Creatinine [Mass/Vol] 0.72 mg/dL Normal 0.58-0.96 [facility] eGFR- Amer. >60 Normal [facility] eGFR-All Other Races >60 Normal [facility] Comment on above: Result Comment: eGFR (Estimated GFR) Units of measure: mL/min/1.73 meters squared eGFR is derived from the reexpressed MDRD Study equation using the following parameters: serum creatinine, age, gender and race. The creatinine assay has been calibrated to be traceable to IDMS. An eGFR <60 mL/min/1.73m2 for >3 months is consistent with chronic kidney disease. Refer to KDOQI guidelines for clinical interpretation. In patients with unstable renal function, e.g. those with acute kidney injury, the eGFR may not accurately reflect actual GFR. Glucose [Mass/Vol] 128 mg/dL High 74-99 [facility] Comment on above: Result Comment: The [place] Diabetes Association (ADA) provides guidance for cutoff values for fasting glucose and random glucose. The ADA defines fasting as no caloric intake for at least 8 hours. Fasting plasma glucose results between 100 to 125 mg/dL indicate increased risk for diabetes (prediabetes). Fasting plasma glucose results greater than or equal to 126 mg/dL meet the criteria for diagnosis of diabetes. In the absence of unequivocal hyperglycemia, results should be confirmed by repeat testing. In a patient with classic symptoms of hyperglycemia or hyperglycemic crisis, random plasma glucose results greater than or equal to 200 mg/dL meet the criteria for diagnosis of diabetes. Reference: Standards of Medical Care in Diabetes 2016, [place] [employer] Association. Diabetes Care. 2016.39(Suppl 1). Potassium [Moles/Vol] 3.7 mmol/L Normal 3.7-5.1 [facility] Protein [Mass/Vol] 7.2 g/dL Normal 6.3-8.0 [facility] Sodium [Moles/Vol] 134 mmol/L Low 136-144 [facility] Urea nitrogen [Mass/Vol] 19 mg/dL Normal 7-21 [facility] Magnesium 09-19-2021 Magnesium [Mass/Vol] 2.0 mg/dL Normal 1.7-2.3 [facility] 09-18-2021 [facility] HNO ID: [id number] Author: Angela Neff RN Service: Infection Prevention Author Type: ? Type: Allied Health Filed: 09/18/2021 1:19 PM Note Text: ISOLATION NOTE Admission Date: 09/18/2021 Type of Isolation Recommended: Contact and Droplet Precautions Plus Eyewear ([place]berry Isolation Sign) Indication: COVID-19 ? Maintain Contact/Droplet and Eyewear isolation signage ? Remain in private room or cohort when deemed appropriate ? Don an N95 (or PAPR) prior to entering the patient room ? Avoid entering room during aerosol generating procedure when possible ? Restrict room access to essential personnel only ? Contact Infection Prevention prior to discontinuing precautions when criteria are met ? Limit transport and movement of the patient to medically necessary purposes Date Isolation Initiated: 09/18/2021 Anticipated Duration of Isolation: In consultation with Infection Prevention Type and Date of Positive Test(s): 09/11/2021 Positive for COVID19 (SARS CoV2) by PCR SIGNATURE: Angela Neff RN PATIENT NAME: Christina Macias DATE: September 18, 2021 TIME: 1:18 PM PAGER/CONTACT #: Mary [phone] Normal [facility] C-Reactive Proteinon 021 C-Reactive Protein 6.4 mg/dL High <0.9 [facility] CASE [id number] Author: MARIA VICTORIA Sheriff Service: Social Work Author Type: Leathersmith Type: Care Mgt Initial Assessment Filed: 09/18/2021 11:52 AM Note Text: CARE MANAGEMENT: ASSESSMENT AND DISCHARGE PLAN SERVICE DATE: September 18, 2021 SERVICE TIME: 11:48 AM PRIMARY CARE PHYSICIAN: King Mullen MD ADMISSION STATUS: Observation Needs Prior to Discharge: Oxygen Set-up;Other: See Comment (COVID kit) 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 Last discharge within 30 days: No Advance Directive: Current Advance Directive: Health Care Power of Radio Announcer;Living Will In Chart: Yes Up To Date and Valid: Yes Health LiteracyHow often do you need to have someone help you when you read instructions, pamphlets, or other written material from your doctor or pharmacy? : 1 - Never How confident are you filling out medical forms by yourself?: 1 - Extremely Baseline Mental Status Prior to this Illness what was the patient's Baseline Mental Status?: Alert AND Oriented Prior to this illness, has anyone described the patient having any of the following behaviors?: Not Applicable Relationship of the informant to the patient:: Self Functional Status: Independent Does Patient Currently Receive Any Community Services or Home Care?: None Equipment Prior to Admission: None Has the Patient Been in a Jail Facility in the Past 30 days?: No SOCIAL: Living Arrangements: Home Lives With: Spouse Financial Resources: Employed Primary Contact: Extended Emergency Contact Information Primary Emergency Contact: Jt Macias V Address: [address] [place] [address] [place] [address] [place] Mobile Relation: Spouse Supportive Patient Contact:: Unable to assess at this time (Spouse also in hospital with COVID.) Contact Resources: Family Family Name/Phone: Spouse, Jt Caregiver AssessmentCaregiver is ready, willing and able to meet the patient's needs as recommended by the inter-professional team:: Other: See Comment (TBD) Does the patient have an acute stroke diagnosis, or has the patient had a stroke during this admission?: No Patient's transition needs and plan for meeting these needs: Potential need for Home O2, also anticipate need for COVID kit. No furhter discharge needs anticipated. Patient's perception of need for this admission: Medication Adherance I am convinced of the importance of my prescription medication: 0 - Agree Completely I worry that my prescription medication will do more harm than good to me : 0 - Disagree Completely I feel financially burdened by my bja-la-fobfzz expenses for my prescription medication:: 0 - Disagree Completely Risk Score: 0 Patient is categorized as: Low risk < 2 Are you interested in bedside delivery of your medications? No Is Patient Psychosocially Complex?: No ASSESSMENT AND PLAN: Medical Needs: Medical Needs: Two or more chronic diseases;Respiratory Insufficiency RT needs: Oxygen Psychosocial Needs: Psychosocial Needs: None FREEDOM OF CHOICE EXPLAINED: Rhodell of Choice Given: No Reason Not Given: No placements necessary POTENTIAL TRANSITION PLANS No Services Indicated Patient lives with spouse. Patient still employed, but will be retiring next year. Independent at home. Potential need for Home O2, Covid kit pending hospital course. Patient spouse is also being admitted to hospital for COVID. SIGNATURE: MARIA VICTORIA Sheriff PATIENT NAME: Christina Macias DATE: September 18, 2021 TIME: 11:48 AM PAGER/CONTACT #: [phone] Normal [facility] CBC and Differentialon 09-18 Abs Baso <0.03 Normal <0.11 [facility] Abs Preble 0.71 k/uL Normal <0.87 [facility] Abs Neut 8.14 k/uL High 1.45-7.50 [facility] Absolute nRBC <0.01 Normal <0.01 [facility] Basophils/100 WBC (Bld) 0.2 % Normal [facility] DTYPE Auto Diff Normal [facility] Eosinophils (Bld) [#/Vol] 0.03 10*3/uL Normal <0.46 [facility] Eosinophils/100 WBC (Bld) 0.3 % Normal [facility] Erythrocyte distribution width (RBC) [Ratio] 11.9 % Normal 11.5-15.0 [facility] Hematocrit (Bld) [Volume fraction] 39.7 % Normal 36.0-46.0 [facility] Hemoglobin (Bld) [Mass/Vol] 14.0 g/dL Normal 11.5-15.5 [facility] Lymphocytes (Bld) [#/Vol] 0.95 10*3/uL Low 1.00-4.00 [facility] Lymphocytes/100 WBC (Bld) 9.6 % Normal [facility] MCH 29.9 pG Normal 26.0-34.0 [facility] MCHC (RBC) [Mass/Vol] 35.3 g/dL Normal 30.5-36.0 [facility] MCV (RBC) [Entitic vol] 84.8 fL Normal 80.0-100.0 [facility] Monocytes/100 WBC (Bld) 7.2 % Normal [facility] Neutrophils/100 WBC (Bld) 82.7 % Normal [facility] NRBCs 0.0 /100 WBC Normal 0 [facility] Platelet mean volume (Bld) [Entitic vol] 10.9 fL Normal 9.0-12.7 [facility] Platelets (Bld) [#/Vol] 228 10*3/uL Normal 150-400 [facility] RBC (Bld) [#/Vol] 4.68 10*6/uL Normal 3.90-5.20 [facility] WBC (Bld) [#/Vol] 9.85 10*3/uL Normal 3.70-11.00 [facility] Comp Metabolic Panelon 09-18 Albumin [Mass/Vol] 4.3 g/dL Normal 3.9-4.9 [facility] ALP [Catalytic activity/Vol] 90 U/L Normal 34-123 [facility] ALT [Catalytic activity/Vol] 34 U/L Normal 7-38 [facility] Anion gap [Moles/Vol] 16 mmol/L Normal 9-18 [facility] AST [Catalytic activity/Vol] 34 U/L Normal 13-35 [facility] Bilirubin [Mass/Vol] 0.9 mg/dL Normal 0.2-1.3 [facility] Calcium [Mass/Vol] 8.9 mg/dL Normal 8.5-10.2 [facility] Chloride [Moles/Vol] 91 mmol/L Low 97-105 [facility] CO2 [Moles/Vol] 26 mmol/L Normal 22-30 [facility] Creatinine [Mass/Vol] 0.83 mg/dL Normal 0.58-0.96 [facility] eGFR- Amer. >60 Normal [facility] eGFR-All Other Races >60 Normal [facility] Comment on above: Result Comment: eGFR (Estimated GFR) Units of measure: mL/min/1.73 meters squared eGFR is derived from the reexpressed MDRD Study equation using the following parameters: serum creatinine, age, gender and race. The creatinine assay has been calibrated to be traceable to IDMS. An eGFR <60 mL/min/1.73m2 for >3 months is consistent with chronic kidney disease. Refer to KDOQI guidelines for clinical interpretation. In patients with unstable renal function, e.g. those with acute kidney injury, the eGFR may not accurately reflect actual GFR. Glucose [Mass/Vol] 157 mg/dL High 74-99 [facility] Comment on above: Result Comment: The [place] Diabetes [employer] (ADA) provides guidance for cutoff values for fasting glucose and random glucose. The ADA defines fasting as no caloric intake for at least 8 hours. Fasting plasma glucose results between 100 to 125 mg/dL indicate increased risk for diabetes (prediabetes). Fasting plasma glucose results greater than or equal to 126 mg/dL meet the criteria for diagnosis of diabetes. In the absence of unequivocal hyperglycemia, results should be confirmed by repeat testing. In a patient with classic symptoms of hyperglycemia or hyperglycemic crisis, random plasma glucose results greater than or equal to 200 mg/dL meet the criteria for diagnosis of diabetes. Reference: Standards of Medical Care in Diabetes 2016, [place] [employer]. Diabetes Care. 2016.39(Suppl 1). Potassium [Moles/Vol] 3.0 mmol/L Low 3.7-5.1 [facility] Protein [Mass/Vol] 7.5 g/dL Normal 6.3-8.0 [facility] Sodium [Moles/Vol] 133 mmol/L Low 136-144 [facility] Urea nitrogen [Mass/Vol] 17 mg/dL Normal 7-21 [facility] D dimeron 09-18-2021 D dimer 480 ng/mL FEU Normal <500 [facility] Comment on above: Result Comment: 500 ng/mL FEU is the D Dimer cutoff to exclude DVT (deep vein thrombosis) and PE (pulmonary embolism) in patients with a low pre test probability. Supplemental Comment: In patients over 50 years with a low pre test probability for DVT and/or PE, an age adjusted D dimer cutoff can be calculated as [age x 10] ng/mL FEU. For example, a patient of 88 years would have an age adjusted D dimer cutoff of 880 ng/mL FEU. For patients with a suspected DVT, a D dimer level below 500 ng/mL FEU has a negative predictive value of >98.9%, a sensitivity of >96.9% and a specificity of >35.7%. For patients with a suspected PE, a D dimer level below 500 ng/mL FEU has a negative predictive value of >98.5%, and a sensitivity of >96.5% and a specificity of >38.8%. Reference: Pedro M, et al. LATRICE 2014 311:1117 and Roscoe Samano N, et al. Myriam Int Med 2016 165:253. ED NOTEon 09-18-2021 ED NOTE HNO ID: [id number] Author: Sathya Aldana RN Service: ? Author Type: Registered Nurse Type: ED Notes Filed: 09/18/2021 7:14 AM Note Text: [facility] ED NOTE HNO ID: [id number] Author: Sathya Aldana RN Service: ? Author Type: Registered Nurse Type: ED Notes Filed: 09/18/2021 7:14 AM Note Text: Pt has stated that she is too weak to get out of the bed and walk/march in place for the pulse oximetry. [facility] ED NOTE HNO ID: [id number] Author: Sathya Aldana RN Service: ? Author Type: Registered Nurse Type: ED Notes Filed: 09/18/2021 6:49 AM Note Text: Attempt made to obtain a walking pulse ox from this pt, after explanation of the procedure, pt has stated that there is no way that I can do that, sorry. [facility] ED PROV NOTEon 09-18-2021 ED PROV NOTE HNO ID: [id number] Author: Jeffrey Oquendo DO Service: Emergency Medicine Author Type: Physician Type: ED Provider Notes Filed: 09/18/2021 10:08 PM Note Text: ED Provider Note Patient Name: Christina Macias SERVICE DATE: 09/18/21 History Patient presents with: Covid19 Concern: day 11, pt states she thinks shes dehydrated. headache, diarrhea, decreased appetite This is a 65 years old female patient presented to the emergency department with a chief complaint of nausea, coughing, chills, diarrhea, feeling generally weak, body aches as well as headaches since she was diagnosed with Covid 11 days ago. Patient is feeling more generally weak that is why she decided to come to the emergency department today. She denies vomiting, shortness of breath, fever, chills, abdominal pain, weakness, numbness, or urinary symptoms. Past medical history: Hypertension, hypertriglyceridemia Past surgical history: Denies Social history: Denies smoking, denies alcohol use, denies illicit use Allergy: Denies. PAST MEDICAL HISTORY Diagnosis Date - Diverticulosis of colon (without mention of hemorrhage) colonoscopy 08/14 - Essential hypertension, benign - IBS (irritable bowel syndrome) - Pneumonia 08/2014 PAST SURGICAL HISTORY Procedure Laterality Date - COLONOSCOPY 06/2010 - DANDC, DIAG AND/OR THERAPEUTIC Dilation AND curettage - LAPAROSCOPIC CHOLEYCYSTECTOMY 09/2009 - PAST SURGICAL HISTORY OF [id number] bilat knee arthroscopic - REMOVE TONSILS/ADENOIDS,<12 Y/O Tonsil/adenoidectomy FAMILY HISTORY Problem Relation Age of Onset - Ischemic Heart Disease Father age 46 - Cancer Mother lung - Ischemic Heart Disease Unknown nephew Social History Tobacco Use - Smoking status: Former Smoker Packs/day: 2.00 Years: 25.00 Pack years: 50.00 Types: Cigarettes Quit date: 11/10/1997 Years since quittin.8 - Smokeless tobacco: Never Used Substance and Sexual Activity - Alcohol use: Yes Comment: rare - Drug use: No - Sexual activity: Yes Partners: Male ALLERGIES No Known Allergies Review of Systems Constitutional: Positive for appetite change, chills and fatigue. Negative for activity change, diaphoresis and fever. HENT: Negative for congestion, drooling, ear pain, sinus pain, sneezing, sore throat, trouble swallowing and voice change. Eyes: Negative for photophobia, discharge, redness and visual disturbance. Respiratory: Positive for cough. Negative for apnea, choking, chest tightness, shortness of breath, wheezing and stridor. Cardiovascular: Negative. Gastrointestinal: Positive for diarrhea and nausea. Negative for abdominal distention and abdominal pain. Endocrine: Negative for cold intolerance, heat intolerance, polydipsia, polyphagia and polyuria. Genitourinary: Negative for decreased urine volume, dysuria, flank pain, frequency and urgency. Musculoskeletal: Negative for back pain, gait problem, neck pain and neck stiffness. Skin: Negative for color change, pallor and rash. Allergic/Immunologic: Negative for environmental allergies. Neurological: Positive for headaches. Negative for dizziness, seizures, syncope, facial asymmetry, weakness, light-headedness and numbness. Patient had multiple episodes of headache like this in the past and stated that it did not start suddenly and started 11 days ago since she had symptoms of Covid. Patient states the headache is not out of ordinary. Hematological: Does not bruise/bleed easily. Psychiatric/Behavioral : Negative for agitation, behavioral problems, confusion, self-injury and suicidal ideas. The patient is not nervous/anxious. Physical Exam Vitals [09/18/21 0434] BP Pulse Temp Temp src Resp SpO2 Weight Height 100/62 87 36.7 ?C (98.1 ?F) Oral 18 97 % 83.9 kg (185 lb) 1.676 m (5' 6) Physical Exam Vitals and nursing note reviewed. Constitutional: General: She is not in acute distress. Appearance: She is well-developed. She is ill-appearing. She is not diaphoretic. HENT: Head: Normocephalic and atraumatic. Right Ear: External ear normal. Left Ear: External ear normal. Nose: Nose normal. Mouth/Throat: Pharynx: No oropharyngeal exudate. Eyes: General: No scleral icterus. Right eye: No discharge. Left eye: No discharge. Conjunctiva/sclera: Conjunctivae normal. Pupils: Pupils are equal, round, and reactive to light. Neck: Thyroid: No thyromegaly. Vascular: No JVD. Trachea: No tracheal deviation. Cardiovascular: Rate and Rhythm: Normal rate and regular rhythm. Heart sounds: Normal heart sounds. No murmur heard. Pulmonary: Effort: Pulmonary effort is normal. No respiratory distress. Breath sounds: No stridor. Rales present. No wheezing. Chest: Chest wall: No tenderness. Abdominal: General: Bowel sounds are normal. There is no distension. Palpations: Abdomen is soft. Tenderness: There is no abdominal tenderness. There is no (more content not included)... Normal [facility] HISTORY PHYSICALon 1 HISTORY PHYSICAL HNO ID: [id number] Author: Nery Mcclure APRN.CNP Service: Hospital Medicine Author Type: Nurse Practitioner Type: HANDP Filed: 09/18/2021 10:50 AM Note Text: DEPARTMENT OF HOSPITAL MEDICINE HISTORY AND PHYSICAL EXAM SERVICE DATE: 09/18/2021 Code Status: Not on file SERVICE TIME: 8:53 AM Primary Care Physician: King Mullen MD NIGHT AND WEEKEND COVERAGE: ISMAEL COVERAGE: : [phone], please contact via [employer] Nights: [phone], please page [facility] Hospitalist Night coverage pager [phone] Subjective CHIEF COMPLAINT: Covid +, didn't feel right HPI: This is a 65 year old female with PMHx of HTN, hypertriglyceridemia, and diverticulosis who presents with productive cough, body aches, BHATT, and poor appetite x 11 days. She tested positive for Covid-19 infection on 09/11/2021. She has been managing at home with ibuprofen and Rico's severe cold/flu medication. She states that she woke up with morning with a feeling of I just didn't feel right, like I was dehydrated. She is not vaccinated for Covid-19. No known sick contacts but works with the public. Her spouse is also ill. No reported fever or chills since onset of symptoms. No shortness of breath, however, she was hypoxic in the ED and is now requiring 1L supplemental oxygen. She denies any abdominal symptoms. No pain presently. She has not taken her prescribed medications in at least 3-4 days. PAST MEDICAL HISTORY Diagnosis Date - Diverticulosis of colon (without mention of hemorrhage) colonoscopy 08/14 - Essential hypertension, benign - IBS (irritable bowel syndrome) - Pneumonia 08/2014 PAST SURGICAL HISTORY Procedure Laterality Date - COLONOSCOPY 06/2010 - DANDC, DIAG AND/OR THERAPEUTIC Dilation AND curettage - LAPAROSCOPIC CHOLEYCYSTECTOMY 09/2009 - PAST SURGICAL HISTORY OF [id number] bilat knee arthroscopic - REMOVE TONSILS/ADENOIDS,<12 Y/O Tonsil/adenoidectomy FAMILY HISTORY Problem Relation Age of Onset - Ischemic Heart Disease Father age 46 - Cancer Mother lung - Ischemic Heart Disease Unknown nephew Social History Tobacco Use - Smoking status: Former Smoker Packs/day: 2.00 Years: 25.00 Pack years: 50.00 Types: Cigarettes Quit date: 11/10/1997 Years since quittin.8 - Smokeless tobacco: Never Used Substance Use Topics - Alcohol use: Yes Comment: rare - Drug use: No PRIOR TO ADMISSION MEDICATIONS: (Not in a hospital admission) ALLERGIES No Known Allergies REVIEW OF SYSTEM: PAIN ASSESSMENT: Negative for history of chronic pain, or current treatment for a chronic pain condition. GENERAL: Body aches. No fever or chills. No malaise. HEENT:Headache. No changes in hearing or vision, no nose bleeds or other nasal problems RESPIRATORY: Prodicutive cough. Negative for hemoptysis, wheezing, COPD, dyspnea or shortness of breath CARDIOVASCULAR: HTN. Negative for chest pain, leg swelling, CHF or palpitations GI: No nausea, vomiting, or diarrhea : No history of dysuria, frequency or incontinence MUSCULOSKELETAL: Negative for joint pain, muscle pain, or stiffness SKIN: Negative for lesions, rash, and itching ENDOCRINE: Negative for cold or heat intolerance, polyuria, and polydipsia NEURO: No history of headaches, syncope, paralysis, seizures, or tremors Objective PHYSICAL EXAM: BP 123/88 Pulse 78 Temp (Src) 98.1 (Oral) Resp 20 Ht 5' 6 (1.68m) Wt 185 lb (83.9kg) SpO2 96% BMI 29.87 kg/(m2). O2 Therapy: Nasal Cannula, Liters: 1 Physical Exam Performed: GENERAL: Alert, appears WDWN in no acute distress, cooperative. HEAD: Normocephalic, atraumatic. EYES: PERRLA, EOMI NECK: No jugulovenous distention, supple BACK: Back symmetric, normal curvature, ROM normal, no CVAT. LUNGS: Fine crackles throughout. Good diaphragmatic excursion CARDIAC: Normal S1 and S2; no rubs, murmurs, or gallops ABDOMEN: Abdomen soft, non-distended, non-tender, BS present x 4. No masses or organomegaly EXTREMITIES: Extremities normal, no deformities, edema, clubbing or skin discoloration. Good capillary refill. No ulcers. NEURO: Alert and oriented x3. Grossly normal cognition, motor function, and cranial nerves II-XII intact. Gait normal. Sensation grossly intact. Normal strength UE + LE. PULSES: 2+ radial, 2+ dorsalis pedis Lines, Drains, and Airways Line Peripheral 09/18/21 0527 Assessment Short Left Antecubital 20 Gauge <1 day Reviewed lines and needs to be continued: REASONS: Intravenous fluids and Telemetry DATA: Diagnostic tests reviewed for today's visit: 02 Requirement on Arrival: O2 Therapy: Room Air, Liters: 1 02 Requirement Now: O2 Therapy: Nasal Cannula, Liters: 1 CXRAY: Negative EKG Changes on Arrival: Borderline prolonged QTc COVID 19 Result FRAME OPERATOR Date Value Ref Range Status 09/11/2021 (A) Negative for COVID19 (SARS CoV2) by RT-PCR or equivalent method. Final Positive for COVID19 (SARS CoV2) by RT-PCR or eq (more content not included)... Normal [facility] High Sens Troponin Ton 09-18 High Sensitivity NAVEEN 7 ng/L Normal <12 [facility] NT Pro BNPon 09-18-2021 PRO B Natr Peptide 108 pg/mL Normal <125 [facility] Procalcitoninon 09-18-2021 Procalcitonin 0.06 ng/mL Normal <0.09 [facility] Comment on above: Result Comment: For a guided interpretation of test results, please visit the Change in Procalcitonin Calculator, [email or web address]. Performed By: #### P ROCAL ####[id number], [place] [id number] XR CHEST 1V FRONTAL PORTon 1 11-18-2020 XR CHEST 1V FRONTAL PORT * * *Final Report* * * DATE OF EXAM: Sep 18 2021 6:01AM [id number] - XR CHEST 1V FRONTAL PORT / PROCEDURE REASON: Acute respiratory illness * * * * Physician Interpretation * * * * EXAMINATION: CHEST RADIOGRAPH (PORTABLE SINGLE VIEW AP) Exam Date/Time: 09/18/2021 6:01 AM CLINICAL HISTORY: Acute respiratory illness MQ: [id number] Comparison: 04/11/2020 RESULT: Lines, tubes, and devices: None. Lungs and pleura: Patchy and interstitial airspace opacities/infiltrates bilateral bases. Upper lung stafford show no consolidation. No pneumothorax. No visualized pleural effusion. Cardiomediastinal silhouette: Stable cardiomediastinal silhouette. IMPRESSION: Patchy and interstitial airspace opacities/infiltrates bilateral bases. The imaging findings are concerning for an infectious process, possibly viral. Depot Agent: ASHOK Transcribe Date/Time: Sep 18 2021 6:02A Dictated by : LAUREN GUIDO MD This examination was interpreted and the report reviewed and electronically signed by: LAUREN GUIDO MD on Sep 18 2021 6:04AM EST [id number] Normal [facility] CBC and Differentialon 09-11 Abs Baso <0.03 Normal <0.11 [facility] Abs Preble 0.79 k/uL Normal <0.87 [facility] Abs Neut 6.03 k/uL Normal 1.45-7.50 [facility] Absolute nRBC <0.01 Normal <0.01 [facility] Basophils/100 WBC (Bld) 0.2 % Normal [facility] DTYPE Auto Diff Normal [facility] Eosinophils (Bld) [#/Vol] 0.05 10*3/uL Normal <0.46 [facility] Eosinophils/100 WBC (Bld) 0.6 % Normal [facility] Erythrocyte distribution width (RBC) [Ratio] 12.3 % Normal 11.5-15.0 [facility] Hematocrit (Bld) [Volume fraction] 41.6 % Normal 36.0-46.0 [facility] Hemoglobin (Bld) [Mass/Vol] 14.4 g/dL Normal 11.5-15.5 [facility] Lymphocytes (Bld) [#/Vol] 1.49 10*3/uL Normal 1.00-4.00 [facility] Lymphocytes/100 WBC (Bld) 17.8 % Normal [facility] MCH 29.9 pG Normal 26.0-34.0 [facility] MCHC (RBC) [Mass/Vol] 34.6 g/dL Normal 30.5-36.0 [facility] MCV (RBC) [Entitic vol] 86.5 fL Normal 80.0-100.0 [facility] Monocytes/100 WBC (Bld) 9.4 % Normal [facility] Neutrophils/100 WBC (Bld) 72.0 % Normal [facility] NRBCs 0.0 /100 WBC Normal 0 [facility] Platelet mean volume (Bld) [Entitic vol] 10.9 fL Normal 9.0-12.7 [facility] Platelets (Bld) [#/Vol] 182 10*3/uL Normal 150-400 [facility] RBC (Bld) [#/Vol] 4.81 10*6/uL Normal 3.90-5.20 [facility] WBC (Bld) [#/Vol] 8.38 10*3/uL Normal 3.70-11.00 [facility] Comp Metabolic Panelon 09-11 Albumin [Mass/Vol] 4.5 g/dL Normal 3.9-4.9 [facility] ALP [Catalytic activity/Vol] 89 U/L Normal 34-123 [facility] ALT [Catalytic activity/Vol] 43 U/L High 7-38 [facility] Anion gap [Moles/Vol] 14 mmol/L Normal 9-18 [facility] AST [Catalytic activity/Vol] 38 U/L High 13-35 [facility] Bilirubin [Mass/Vol] 0.8 mg/dL Normal 0.2-1.3 [facility] Calcium [Mass/Vol] 9.0 mg/dL Normal 8.5-10.2 [facility] Chloride [Moles/Vol] 95 mmol/L Low 97-105 [facility] CO2 [Moles/Vol] 24 mmol/L Normal 22-30 [facility] Creatinine [Mass/Vol] 0.81 mg/dL Normal 0.58-0.96 [facility] eGFR- Amer. >60 Normal [facility] eGFR-All Other Races >60 Normal [facility] Comment on above: Result Comment: eGFR (Estimated GFR) Units of measure: mL/min/1.73 meters squared eGFR is derived from the reexpressed MDRD Study equation using the following parameters: serum creatinine, age, gender and race. The creatinine assay has been calibrated to be traceable to IDMS. An eGFR <60 mL/min/1.73m2 for >3 months is consistent with chronic kidney disease. Refer to KDOQI guidelines for clinical interpretation. In patients with unstable renal function, e.g. those with acute kidney injury, the eGFR may not accurately reflect actual GFR. Glucose [Mass/Vol] 117 mg/dL High 74-99 [facility] Comment on above: Result Comment: The [place] Diabetes Association (ADA) provides guidance for cutoff values for fasting glucose and random glucose. The ADA defines fasting as no caloric intake for at least 8 hours. Fasting plasma glucose results between 100 to 125 mg/dL indicate increased risk for diabetes (prediabetes). Fasting plasma glucose results greater than or equal to 126 mg/dL meet the criteria for diagnosis of diabetes. In the absence of unequivocal hyperglycemia, results should be confirmed by repeat testing. In a patient with classic symptoms of hyperglycemia or hyperglycemic crisis, random plasma glucose results greater than or equal to 200 mg/dL meet the criteria for diagnosis of diabetes. Reference: Standards of Medical Care in Diabetes 2016, [place] [employer]. Diabetes Care. 2016.39(Suppl 1). Potassium [Moles/Vol] 3.4 mmol/L Low 3.7-5.1 [facility] Protein [Mass/Vol] 7.5 g/dL Normal 6.3-8.0 [facility] Sodium [Moles/Vol] 133 mmol/L Low 136-144 [facility] Urea nitrogen [Mass/Vol] 22 mg/dL High 7-21 [facility] ED NOTEon 09-11-2021 ED NOTE HNO ID: [id number] Author: Tyra Nugent RN Service: ? Author Type: Registered Nurse Type: ED Notes Filed: 09/11/2021 11:16 AM Note Text: Discharge instructions reviewed w/ pt- see AVS; pt up ad gillian, able to dress self and walk w/ steady gait; family present to drive pt home; Pt knows to return to ED w/ worsening s/s. [facility] ED NOTE HNO ID: [id number] Author: Tyra Nugent RN Service: ? Author Type: Registered Nurse Type: ED Notes Filed: 09/11/2021 9:48 AM Note Text: covid swab obtained and sent to lab. [facility] ED NOTE HNO ID: [id number] Author: Jann Malik RN Service: ? Author Type: Registered Nurse Type: ED Notes Filed: 09/11/2021 9:22 AM Note Text: Patient presents to ed with diarrhea, body aches, and sinus pressure and spouse is sick with same symptoms. [facility] ED PROV NOTEon 09-11-2021 ED PROV NOTE HNO ID: [id number] Author: Alexander Garcia PA-C Service: ? Author Type: Physician Certified Court Interpreter Type: ED Provider Notes Filed: 09/11/2021 11:57 AM Note Text: ED Provider Note Patient Name: Christina Macias SERVICE DATE: 09/11/21 History Patient presents with: Viral Syndrome: sinis pressure, diarrhea, body aches Patient is a 65-year-old female with a history of hypertension who presents to the emergency department for evaluation of body aches, sinus pain, diarrhea. Patient states that on Friday she began experiencing body aches, by Friday she was experiencing some sinus pain and for the past 2 days she has been experiencing diarrhea. Patient has been drinking Pedialyte, Gatorade, and taking Mucinex at home. Denies blood in the diarrhea. Denies chest pain, shortness of breath, fever/chills, nausea/vomiting, abdominal pain, dysuria, hematuria, cough, rhinorrhea, sore throat, ear pain, recent travel, known exposure to anyone diagnosed with COVID-19. Patient has not received her current vaccination thus far. Is scheduled to have her flu vaccination on Friday. Denies smoking history or alcohol usage. PAST MEDICAL HISTORY Diagnosis Date - Diverticulosis of colon (without mention of hemorrhage) colonoscopy 08/14 - Essential hypertension, benign - IBS (irritable bowel syndrome) - Pneumonia 08/2014 PAST SURGICAL HISTORY Procedure Laterality Date - COLONOSCOPY 06/2010 - DANDC, DIAG AND/OR THERAPEUTIC Dilation AND curettage - LAPAROSCOPIC CHOLEYCYSTECTOMY 09/2009 - PAST SURGICAL HISTORY OF [id number] bilat knee arthroscopic - REMOVE TONSILS/ADENOIDS,<12 Y/O Tonsil/adenoidectomy FAMILY HISTORY Problem Relation Age of Onset - Ischemic Heart Disease Father age 46 - Cancer Mother lung - Ischemic Heart Disease Unknown nephew Social History Tobacco Use - Smoking status: Former Smoker Packs/day: 2.00 Years: 25.00 Pack years: 50.00 Types: Cigarettes Quit date: 11/10/1997 Years since quittin.8 - Smokeless tobacco: Never Used Substance and Sexual Activity - Alcohol use: Yes Comment: rare - Drug use: No - Sexual activity: Yes Partners: Male ALLERGIES No Known Allergies Review of Systems Constitutional: Negative for chills and fever. HENT: Positive for sinus pressure. Negative for ear pain, rhinorrhea and sore throat. Respiratory: Negative for cough and shortness of breath. Cardiovascular: Negative for chest pain. Gastrointestinal: Positive for diarrhea. Negative for abdominal pain, blood in stool, constipation, nausea and vomiting. Genitourinary: Negative for enuresis and hematuria. All other systems reviewed and are negative. Physical Exam Vitals BP Pulse Temp Temp src Resp SpO2 Weight Height 09/11/21 0920 09/11/21 0920 09/11/21 0920 09/11/21 0920 09/11/21 0920 09/11/21 0920 09/11/21 0920 09/11/21 09 117/68 75 36.6 ?C (97.9 ?F) Oral 16 96 % 86.2 kg (190 lb) 1.676 m (5' 6) Physical Exam Vitals and nursing note reviewed. Constitutional: General: She is not in acute distress. Appearance: Normal appearance. She is not ill-appearing, toxic-appearing or diaphoretic. HENT: Head: Normocephalic and atraumatic. Comments: Tender to palpation overlying bilateral maxillary sinuses Eyes: Extraocular Movements: Extraocular movements intact. Conjunctiva/sclera: Conjunctivae normal. Pupils: Pupils are equal, round, and reactive to light. Cardiovascular: Rate and Rhythm: Normal rate and regular rhythm. Pulses: Normal pulses. Heart sounds: Normal heart sounds. Pulmonary: Effort: Pulmonary effort is normal. Breath sounds: Normal breath sounds. Abdominal: General: Abdomen is flat. Bowel sounds are normal. Palpations: Abdomen is soft. Skin: General: Skin is warm and dry. Capillary Refill: Capillary refill takes less than 2 seconds. Neurological: General: No focal deficit present. Mental Status: She is alert and oriented to person, place, and time. Psychiatric: Mood and Affect: Mood normal. Behavior: Behavior normal. Diagnostic Testing ED Labs Ordered and Reviewed - No data to display Procedures ED Course / Clinical Impression Clinical Impressions as of Sep 11 1156 COVID-19 Diarrhea, unspecified type Body aches COVID-19 test performed per [facility] policy for suspected COVID community exposure. MDM / Disposition / Plan Nursing notes were reviewed : Yes Old records reviewed : Office visit note from 08/03/2021 Pulse ox interpretation : 96% on room air = no hypoxia per my interpretation Differential Diagnosis includes but not limited to : Bronchitis, pneumonia, viral URI, influenza, COVID-19, acute sinusitis, viral sinusitis, electrolyte abnormality, dehydration, other Re-evaluation : 10:50 AM-patient resting comfortably in bed in no acute distress. Lab work, urine analysis, COVID-19 swab results discussed as well as plan of care. Assessment/Plan : Patie (more content not included)... Normal [facility] Expedited [id number] 09-11-20 21 SARS-CoV-2 (COVID-19) RNA LUDIVINA+probe Ql (Unsp spec) UPPER RESPIRATORY TRACT SWAB Normal [facility] SARS-CoV-2 (COVID-19) RNA LUDIVINA+probe Ql (Unsp spec) Positive for COVID19 (SARS CoV2) by RT-PCR or equivalent method. Critically abnormal Negative for COVID19 (SARS CoV2) by RT-PCR or equivalent method. [facility] Comment on above: Result Comment: If y our test results are positive, you have tested positive for the presence of the virus associated with COVID-19. This is a stressful time and if you are a [facility] patient, we will support you by closely monitoring your symptoms and providing supportive resources that can ease your recovery. Our team will call you regularly and have you enter your symptoms in [facility], so that we can provide the best care possible. This test has been authorized by FDA under an Emergency Use Authorization (EUA). Urinalysis with [email or web address]] 09-11-2021 Bilirubin, Urine Negative Normal Negative [facility] Cast SEE COMMENT Normal 0 [facility] Comment on above: Result Comment: 0 Clarity (U) Clear Normal Clear [facility] Color (U) Yellow Normal Yellow [facility] Epithelial cells LM Ql (Urine sed) SEE COMMENT Normal [facility] Comment on above: Result Comment: Rare Squamous Epithelial Cells Glucose Ql (U) Negative Normal Negative [facility] Hemoglobin/Blood,Ur Negative Normal Negative [facility] Ketones Ql (U) 1+ Critically abnormal Negative [facility] Leukest 1+ Critically abnormal Negative [facility] Nitrite Ql (U) Negative Normal Negative [facility] pH (U) 6.0 [pH] Normal 5.0-8.0 [facility] Protein, Urine Negative Normal Negative [facility] RBC 0-3 Normal 0-3 [facility] Specific Anna, Ur 1.021 Normal 1.005-1.030 [facility] Urobilinogen Qn (U) 0.2 {Dianne'U}/dL Normal 0.2-1.0 [facility] WBC 6-10 Critically abnormal 0-5 [facility] Basic Metabolic Panlon 03-06 Anion gap molar conc 5 mmol/L Low 9-18 [facility] Comment on above: Performed By: #### C BCDIF, LIPA, PT, PTT, CMP #### [facility] [address] [address] Calcium mass conc 8.6 mg/dL Normal 8.5-10.2 [facility] Comment on above: Performed By: #### C BCDIF, LIPA, PT, PTT, CMP #### [facility] [address] [place] [address] Chloride molar conc 106 mmol/L High 97-105 [facility] Comment on above: Performed By: #### C BCDIF, LIPA, PT, PTT, CMP #### [facility] [address] [place] [address] CO2 molar conc 31 mmol/L High 22-30 [facility] Comment on above: Performed By: #### C BCDIF, LIPA, PT, PTT, CMP #### [facility] [address] [place] [address] Creatinine mass conc 0.76 mg/dL Normal 0.58-0.96 [facility] Comment on above: Performed By: #### C BCDIF, LIPA, PT, PTT, CMP #### [facility] [address] [place] [address] eGFR- Amer. >60 Normal [facility] Comment on above: Performed By: #### C BCDIF, LIPA, PT, PTT, CMP #### [facility] [address] [place] [address] GFR/1.73 sq M predicted among non-blacks MDRD vol rate/area (S/P/Bld) mL/min/{1.73_m2} Normal [facility] Comment on above: Result Comment: eGFR (Estimated GFR) Units of measure: mL/min/1.73 meters squared eGFR is derived from the reexpressed MDRD Study equation using the following parameters: serum creatinine, age, gender and race. The creatinine assay has been calibrated to be traceable to IDMS. An eGFR <60 mL/min/1.73m2 for >3 months is consistent with chronic kidney disease. Refer to KDOQI guidelines for clinical interpretation. In patients with unstable renal function, e.g. those with acute kidney injury, the eGFR may not accurately reflect actual GFR. Performed By: #### C BCDIF, LIPA, PT, PTT, CMP #### [facility] [address] [place] [address] Glucose mass conc 117 mg/dL High 74-99 [facility] Comment on above: Result Comment: The [place] Diabetes Association (ADA) provides guidance for cutoff values for fasting glucose and random glucose. The ADA defines fasting as no caloric intake for at least 8 hours. Fasting plasma glucose results between 100 to 125 mg/dL indicate increased risk for diabetes (prediabetes). Fasting plasma glucose results greater than or equal to 126 mg/dL meet the criteria for diagnosis of diabetes. In the absence of unequivocal hyperglycemia, results should be confirmed by repeat testing. In a patient with classic symptoms of hyperglycemia or hyperglycemic crisis, random plasma glucose results greater than or equal to 200 mg/dL meet the criteria for diagnosis of diabetes. Reference: Standards of Medical Care in Diabetes 2016, [place] [employer]. Diabetes Care. 2016.39(Suppl 1). Performed By: #### C BCDIF, LIPA, PT, PTT, CMP #### [facility] [address] [place] [address] Potassium molar conc 4.8 mmol/L Normal 3.7-5.1 [facility] Comment on above: Performed By: #### C BCDIF, LIPA, PT, PTT, CMP #### [facility] [address] [place] [address] Sodium molar conc 142 mmol/L Normal 136-144 [facility] Comment on above: Performed By: #### C BCDIF, LIPA, PT, PTT, CMP #### [facility] [address] [place] [address] Urea nitrogen mass conc 13 mg/dL Normal 7-21 [facility] Comment on above: Performed By: #### C BCDIF, LIPA, PT, PTT, CMP #### [facility] [address] [place] [address] C difficile PCRon 03-06-2019 C difficile PCR Negative Normal [facility] Comment on above: Performed By: #### C BCDIF, LIPA, PT, PTT, CMP #### [facility] [address] [address] CBCon 03-06-2019 Erythrocyte distribution width Ratio (RBC) 12.8 % Normal 11.5-15.0 [facility] Comment on above: Performed By: #### C BCDIF, LIPA, PT, PTT, CMP #### [facility] [address] [address] Hematocrit Volume Fraction (Bld) 40.6 % Normal 36.0-46.0 [facility] Comment on above: Performed By: #### C BCDIF, LIPA, PT, PTT, CMP #### [facility] [address] [address] Hemoglobin mass conc (Bld) 13.1 g/dL Normal 11.5-15.5 [facility] Comment on above: Performed By: #### C BCDIF, LIPA, PT, PTT, CMP #### [facility] [address] [address] MCH Entitic mass (RBC) 28.9 pG Normal 26.0-34.0 [facility] Comment on above: Performed By: #### C BCDIF, LIPA, PT, PTT, CMP #### [facility] [address] [address] MCHC mass conc (RBC) 32.3 g/dL Normal 30.5-36.0 [facility] Comment on above: Performed By: #### C BCDIF, LIPA, PT, PTT, CMP #### [facility] [address] [address] MCV Entitic volume (RBC) 89.6 fL Normal 80.0-100.0 [facility] Comment on above: Performed By: #### C BCDIF, LIPA, PT, PTT, CMP #### [facility] [address] [address] Platelet mean volume Entitic volume (Bld) 10.7 fL Normal 9.0-12.7 [facility] Comment on above: Performed By: #### C BCDIF, LIPA, PT, PTT, CMP #### [facility] [address] [address] Platelets #/vol (Bld) 172 10*3/uL Normal 150-400 [facility] Comment on above: Performed By: #### C BCDIF, LIPA, PT, PTT, CMP #### [facility] [address] RBC #/vol (Bld) 4.53 10*6/uL Normal 3.90-5.20 [facility] Comment on above: Performed By: #### C BCDIF, LIPA, PT, PTT, CMP #### [facility] [address] [place], [place] [id number] WBC #/vol (Bld) 6.37 10*3/uL Normal 3.70-11.00 [facility] Comment on above: Performed By: #### C BCDIF, LIPA, PT, PTT, CMP #### [facility] [address] [place] [address] CNCOon 03-06-2019 CNCO Letter Text Normal [facility] CONSULT PROGon 03-06-2019 Protein mass conc HNO ID: [id number] Author: Kiarra Nugent Service: Gastroenterology Author Type: Physician Type: Consult Progress Note Filed: 03/07/2019 11:47 AM Note Text: GASTROENTEROLOGY CONSULT PROGRESS NOTE Patient Name: Christina Macias SERVICE DATE: March 06, 2019 SERVICE TIME: 9:16 AM ASSESSMENT 1. Acute uncomplicated diverticulitis of the descending colon 2. Hematochezia 3. Leukocytosis - resolved ? PLAN - Change antibiotics to oral (Omnicef and Flagyl) - Advance to GI soft diet - Discontinue IVF - If able to tolerate advance diet would then discharge to home - Follow up with [facility] in 2-3 weeks - Will arrange for outpatient colonoscopy at that time - Continue Metamucil 3 capsules po QHS as prior INTERVAL HPI: Patient reports feeling well this am. Has had no additional reports of hematochezia and therefore stool studies have not been obtained. Denies abdominal pain, nausea or vomiting. Tolerating liquid diet however is complaining of being hungry will therefore advance diet. Afebrile. PHYSICAL EXAM: Patient Vitals for the past 24 hrs: BP Temp Temp src Pulse Resp SpO2 Height Weight 03/06/19 0546 134/68 36.4 ?C (97.5 ?F) Oral 67 ? 93 % ? ? 03/06/19 0029 124/71 36.4 ?C (97.5 ?F) Oral 67 16 96 % ? ? 03/05/19 2147 117/64 36.5 ?C (97.7 ?F) Oral (!) 59 16 98 % ? ? 03/05/191999 127/64 ? ? 67 ? 03/05/19 1534 116/52 36.5 ?C (97.7 ?F) Oral 70 18 91 % ? ? 03/05/19 1138 154/66 36.3 ?C (97.3 ?F) Axillary 80 20 96 % ? ? 03/05/19 1138 ? 167.6 cm (5' 5.98) 88.5 kg (195 lb) GENERAL: Alert and oriented x 3. Appears comfortable. NAD HEENT: No pallor. No scleral icterus LUNGS: Clear to auscultation anteriorly CARDIAC: RRR ABDOMEN: Soft. Non distended. Non tender. Bowel sounds normal. No guarding or rebound tenderness. EXTREMITIES: No edema to JB lower extremities MEDICATIONS: Current Facility-Administered Medications Medication Dose Route Frequency - lisinopril 20 mg tab(s) (ZESTRIL, PRINIVIL) 20 mg ORAL BID - metoprolol succinate ER 50 mg tab(s) (TOPROL XL) 50 mg ORAL DAILY - NaCl 0.9% 3-5 mL 3-5 mL INTRAVENOUS q 12 H - ondansetron orally disintegrating 4 mg tab(s) (ZOFRAN ODT) 4 mg ORAL q 6 H PRN Or - ondansetron (PF) 4 mg injection (ZOFRAN) 4 mg INTRAVENOUS q 6 H PRN - cefTRIAXone 1 g in D5W 100 mL MB+ (ROCEPHIN) 1 g INTRAVENOUS q 24 H - aspirin, enteric coated 81 mg tab(s) 81 mg ORAL DAILY - metroNIDAZOLE 500 mg tab(s) (FLAGYL) 500 mg ORAL q 8 H LABS: CBC, Coags, BMP, Mg, Phos Recent Labs 04/27/19 0519 03/05/19 0800 WBC 6.37 12.46* HB 13.1 14.7 HCT 40.6 43.6 PLT 172 226 INR -- 1.0 APTT -- 27.6 NA 142 139 K 4.8 4.1 CHLOR 106* 101 CO2 31* 27 BUN 13 20 CREAT 0.76 0.63 GLUC 117* 135* CA 8.6 9.3 Liver Function, Amylase, AND Lipase Recent Labs 03/05/19 0800 TPROT 7.3 ALB 4.3 ALT 30 AST 25 ALKPHOS 103 TBILI 1.1 LIPASE 24 RADIOLOGY 03/05/19 CT A/P RESULT: Liver: No mass. Mild amorphous hypodensity in the medial segment of the left lobe adjacent to the gallbladder fossa is thought to be focal fatty infiltration. Biliary: Mild prominence of the common duct is unchanged and can be seen status post cholecystectomy. Spleen: No mass. No splenomegaly. Pancreas: No mass or duct dilation. Adrenals: 2.8 cm right adrenal nodule was present previously and is benign. Kidneys: Small cysts were present previously. No hydronephrosis. No suspicious mass. Tiny lower pole left collecting system calculus was present previously. GI tract: Left colonic diverticuli. Wall thickening and surrounding fat stranding involving the descending colon may be diverticulitis. No associated fluid or gas collections. Lymph nodes: No abdominal or pelvic lymphadenopathy. Mesentery/Peritoneum: No ascites or mass. Retroperitoneum: No mass. Vasculature: ?The celiac axis and SMA are patent. The portal vein and branches, splenic vein, SMV, and hepatic veins are patent. Pelvis: No mass, ascites or fluid collection. Bones/Soft Tissues: Intact Lower thorax: Clear IMPRESSION: Suspected diverticulitis as described ? MOST RECENT EGD / COLONOSCOPY 07/18/2014 Daniel Singleton MD Slightly irregular GE junction 1 cm hiatal hernia Mild duodenitis Diverticular disease of the left colon Medium sized internal hemorrnoids Bx: Antral biopsies: mild chronic gastritis. Intestinal metaplasia. (-) HP. Irregular GE junction: Benign reactive squamous hyperplasia with mild chronic inflammation, consistent with GERD. Mild chronic carditis. Negative for intestinal metaplasia. Cecaum and ascending biopsies: Unremarkable colonic mucosa. Sigmoid and rectum biopsies: Unremarkable colonic mucosa. SIGNATURE: Britt Dorman APRN.[employer] DATE: March 06, 2019 TIME: 9:16 AM Pt much improved. No diarrhea No rectal bleeding Pt felt to have diverticulitis; much improved on IV antibiotics Change to po antibiotics and dc Normal [facility] Enteric Bact Pnl PCRon 03-06 Campy jejun/coli DNA Not Detected Normal [facility] Comment on above: Performed By: #### C BCDIF, LIPA, PT, PTT, CMP #### [facility] [address] [address] Salmonella spp. DNA Not Detected Normal [facility] Comment on above: Performed By: #### C BCDIF, LIPA, PT, PTT, CMP #### [facility] [address] [address] Shiga toxin gene(s) Not Detected Normal [facility] Comment on above: Performed By: #### C BCDIF, LIPA, PT, PTT, CMP #### [facility] [address] [address] Shigella/EIEC DNA Not Detected Normal [facility] Comment on above: Performed By: #### C BCDIF, LIPA, PT, PTT, CMP #### [facility] [address] [address] Fecal Lactoferrinon 03-06-20 19 Fecal Lactoferrin Sp. Request/Comment: - Specimen received in sterile container. Test Result - Positive for lactoferrin, which may indicate presence of fecal white blood cells Critically abnormal [facility] Comment on above: Performed By: #### C BCDIF, LIPA, PT, PTT, CMP #### [facility] [address] [address] Ova and Parasite Scron 03-06 Ova and Parasite Scr Sp. Request/Comment : - Specimen received in Ova and Parasite Kit. Culture Result - Negative for Giardia lamblia and Cryptosporidium species by EIA. Normal [facility] Comment on above: Performed By: #### C BCDIF, LIPA, PT, PTT, CMP #### [facility] [address] PLAN OF CAREon 03-06-2019 PLAN OF CARE HNO ID: [id number] Author: Lolita Watson Service: Hospital Medicine Author Type: Physician Type: Plan of Care Filed: 03/06/2019 6:18 AM Note Text: 1-2 tablets of Fioricet x1 given for headache likely related to caffeine withdrawal. Lolita Watson MD Normal [facility] APTTon 03-05-2019 aPTT Coag time (Bld) 27.6 s Normal 23.0-32.4 [facility] Comment on above: Result Comment: Unfr actionated Heparin Therapeutic Ranges: Standard Heparin Nomogram: 53 to 78 seconds (anti-Xa level of 0.3 to 0.7 U/ml) Low Dose/ACS Nomogram: 49 to 67 seconds (anti-Xa level of 0.2 to 0.5 U/ml) Stroke Treatment Nomogram: 49 to 67 seconds (anti-Xa level of 0.2 to 0.5 U/ml) Note: The APTT therapeutic range has been determined for the current lot of laboratory APTT reagent in use throughout the [facility]. Performed By: #### C BCDIF, LIPA, PT, PTT, CMP #### [facility] [address] [place] [address] CBC and Differentialon 03-05 Abs Baso 0.03 k/uL Normal <0.11 [facility] Comment on above: Performed By: #### C BCDIF, LIPA, PT, PTT, CMP #### [facility] [address] [place] [address] Abs Preble 0.83 k/uL Normal <0.87 [facility] Comment on above: Performed By: #### C BCDIF, LIPA, PT, PTT, CMP #### [facility] [address] [place] [address] Abs Neut 9.84 k/uL High 1.45-7.50 [facility] Comment on above: Performed By: #### C BCDIF, LIPA, PT, PTT, CMP #### [facility] [address] [place] [address] Basophils/100 WBC (Bld) 0.2 % Normal [facility] Comment on above: Performed By: #### C BCDIF, LIPA, PT, PTT, CMP #### [facility] [address] [phone] Eosinophils #/vol (Bld) 0.15 10*3/uL Normal <0.46 [facility] Comment on above: Performed By: #### C BCDIF, LIPA, PT, PTT, CMP #### [facility] [address] [place] [address] Eosinophils/100 WBC (Bld) 1.2 % Normal [facility] Comment on above: Performed By: #### C BCDIF, LIPA, PT, PTT, CMP #### [facility] [address] [place] [address] Erythrocyte distribution width Ratio (RBC) 12.9 % Normal 11.5-15.0 [facility] Comment on above: Performed By: #### C BCDIF, LIPA, PT, PTT, CMP #### [facility] [address] [place] [address] Hematocrit Volume Fraction (Bld) 43.6 % Normal 36.0-46.0 [facility] Comment on above: Performed By: #### C BCDIF, LIPA, PT, PTT, CMP #### [facility] [address] [place] [address] Hemoglobin mass conc (Bld) 14.7 g/dL Normal 11.5-15.5 [facility] Comment on above: Performed By: #### C BCDIF, LIPA, PT, PTT, CMP #### [facility] [address] [place] [address] Lymphocytes #/vol (Bld) 1.61 10*3/uL Normal 1.00-4.00 [facility] Comment on above: Performed By: #### C BCDIF, LIPA, PT, PTT, CMP #### [facility] [address] [place] [address] Lymphocytes/100 WBC (Bld) 12.9 % Normal [facility] Comment on above: Performed By: #### C BCDIF, LIPA, PT, PTT, CMP #### [facility] [address] [place] [address] MCH Entitic mass (RBC) 29.2 pG Normal 26.0-34.0 [facility] Comment on above: Performed By: #### C BCDIF, LIPA, PT, PTT, CMP #### [facility] [address] [phone] MCHC mass conc (RBC) 33.7 g/dL Normal 30.5-36.0 [facility] Comment on above: Performed By: #### C BCDIF, LIPA, PT, PTT, CMP #### [facility] [address] [facility] [phone] MCV Entitic volume (RBC) 86.7 fL Normal 80.0-100.0 [facility] Comment on above: Performed By: #### C BCDIF, LIPA, PT, PTT, CMP #### [facility] [address] [facility] [phone] Monocytes/100 WBC (Bld) 6.7 % Normal [facility] Comment on above: Performed By: #### C BCDIF, LIPA, PT, PTT, CMP #### [facility] [address] [place] [phone] Neutrophils/100 WBC (Bld) 79.0 % Normal [facility] Comment on above: Performed By: #### C BCDIF, LIPA, PT, PTT, CMP #### [facility] [address] [phone] Platelet mean volume Entitic volume (Bld) 11.1 fL Normal 9.0-12.7 [facility] Comment on above: Performed By: #### C BCDIF, LIPA, PT, PTT, CMP #### [facility] [address] [facility] [phone] Platelets #/vol (Bld) 226 10*3/uL Normal 150-400 [facility] Comment on above: Performed By: #### C BCDIF, LIPA, PT, PTT, CMP #### [facility] [address] [phone] RBC #/vol (Bld) 5.03 10*6/uL Normal 3.90-5.20 [facility] Comment on above: Performed By: #### C BCDIF, LIPA, PT, PTT, CMP #### [facility] [address] [phone] WBC #/vol (Bld) 12.46 10*3/uL High 3.70-11.00 [facility] Comment on above: Performed By: #### C BCDIF, LIPA, PT, PTT, CMP #### [facility] [address] [facility] [phone] CONSULTon 03-05-2019 CONSULT HNO ID: [id number] Author: Kiarra Nugent Service: Gastroenterology Author Type: Physician Type: Consults Filed: 03/06/2019 9:03 AM Note Text: GASTROENTEROLOGY CONSULT NOTE PATIENT NAME: Christina Macias SERVICE DATE: March 05, 2019 SERVICE TIME: 11:02 AM PRIMARY CARE PHYSICIAN: King Mullen MD ATTENDING PHYSICIAN: Vida Coburn MD REASON FOR ADMISSION / CONSULTATION: Diverticulitis HPI: This is a 63 year old female with a past medical history significant for IBS, HTN, diverticulosis with 2 previous episodes of diverticulitis ~ 5 years ago who presents to [place] ER on 03/05/19 due to the onset of abdominal pain and rectal bleeding. Patient states she was in her typical state of health when yesterday following dinner she noted the onset of abdominal pain, diaphoresis and syncope - no LOC. This was then followed by diarrhea. Initially her stools were brown in color leading to hematochezia. Describes BRB with 6-7 stools prior to arrival to the ER. Her pain is bilateral lower quadrant pain describes as intermittent sharp pains. Her discomfort increased prior to a BM and improved after a BM. Had both nausea and vomiting. Emesis was without coffee grounds or hematemesis. She contacted Dr. Daniel Singleton who instructed her to present to the ER for further evaluation. ER work up was significant for mild leukocytosis as well as CT findings for descending colon diverticulitis. She was started on Rocephin / Flagyl and has plans to be admitted to observation. Currently she reports her abdominal pain has improved. Denies history of heartburn, changes in appetite, dysphagia or odynophagia. Normally has a BM 1-2x/day with no previous history of constipation, diarrhea, melena or rectal bleeding. Takes 3 fiber capsules at HS. Denies recent change in bowel pattern or antibiotic use. Takes ASA 81 mg daily and seldom uses NSAID's ALLERGIES: No known allergies PAST MEDICAL HISTORY: Diverticulosis HTN IBS PAST SURGICAL HISTORY: Colonoscopy DANDC Cholecystectomy Bilateral knee arthroscopy Tonsillectomy and adenoidectomy MEDICATIONS: Prior to Admission Medications: Lisinopril HCTZ Metoprolol Calciu Lactobacillus MVI ASA Cetirizine Fiber capsule Current Hospital Medications: Current Facility-Administered Medications Medication Dose Route Frequency - iv contrast (radiology procedure) INTRAVENOUS DIRECTED PRN - metroNIDAZOLE 500 mg PREMIX piggyback (FLAGYL) 500 mg INTRAVENOUS ONCE FAMILY HISTORY: Negative for any digestive-related disorders or malignancies. Mother - lung cancer SOCIAL HISTORY: Marital status: Alcohol use: Last drink 6 months ago. Tobacco use: Quit 1997 REVIEW OF SYSTEMS: CONSTITUTIONAL: No fevers, chills, night sweats, unintended weight loss HEENT: Denies frequent or severe headaches EYES: No diplopia or blurry vision CARDIOVASCULAR: No chest pain, dyspnea, palpitations, orthopnea, PND, ankle edema PULM: No dyspnea, unexplained cough GI: Per HPI : No new urinary complaints, including; dysuria, gross hematuria or pyuria NEURO: No dizziness, lightheadedness or vertigo MUSC/SKEL: No new joint pain, swelling, or erythema PSYCH: No concerns regarding depression, anxiety or panic INTEGUMENTARY: No new skin changes (rash, new or changing mole, new growth) PHYSICAL EXAM: Patient Vitals for the past 24 hrs: BP Pulse Resp SpO2 Height Weight 03/05/19 0833 142/66 70 18 ? ? ? 03/05/19 0748 164/73 84 18 97 % 167.6 cm (5' 6) 88.5 kg (195 lb) Body mass index is 31.47 kg/m?. GENERAL: Alert AND oriented x 3. Cooperative. NAD EYES: No scleral icterus SKIN: [place] in color. No jaundice LUNGS: Clear to auscultation anteriorly CARDIAC: RRR ABDOMEN: BS x 4. Abdomen soft, tenderness to BLQ -- LLQ>RLQ, non distended, no palpable masses or organomegaly. No guarding or rebound tenderness elicited EXTREMITIES: No upper or lower extremity edema LABS: Diagnostic tests reviewed for today's visit: CBC, Coags, BMP, Mg, Phos Recent Labs 03/05/19 0800 WBC 12.46* HB 14.7 HCT 43.6 PLT 226 INR 1.0 APTT 27.6 NA 139 K 4.1 CHLOR 101 CO2 27 BUN 20 CREAT 0.63 GLUC 135* CA 9.3 Liver Function, Amylase, AND Lipase Recent Labs 03/05/19 0800 TPROT 7.3 ALB 4.3 ALT 30 AST 25 ALKPHOS 103 TBILI 1.1 LIPASE 24 RADIOLOGY 03/05/19 CT A/P RESULT: Liver: No mass. Mild amorphous hypodensity in the medial segment of the left lobe adjacent to the gallbladder fossa is thought to be focal fatty infiltration. Biliary: Mild prominence of the common duct is unchanged and can be seen status post cholecystectomy. Spleen: No mass. No splenomegaly. Pancreas: No mass or duct dilation. Adrenals: 2.8 cm right adrenal nodule was present previously and is benign. Kidneys: Small cysts were present previously. No hydronephrosis. No suspicious mass. Tiny lower pole left collecting system calculus was present previously. GI tract: Left colonic diverticuli. Wall thickening and surrounding fat stranding involving the descending colon may be diverticulitis. No associated fluid or gas collections. Lymph nodes: No abdominal or pelvic lymphadenopathy. Mesentery/Peritoneum: No ascites or mass. Retroperitoneum: No mass. Vasculature: ?The celiac axis and SMA are patent. The portal vein and branches, splenic vein, SMV, and hepatic veins are patent. Pelvis: No mass, ascites or fluid collection. Bones/Soft Tissues: Intact Lower thorax: Clear IMPRESSION: Suspected diverticulitis as described MOST RECENT EGD / COLONOSCOPY 07/18/2014 Daniel Singleton MD Slightly irregular GE junction 1 cm hiatal hernia Mild duodenitis Diverticular disease of the left colon Medium sized internal hemorrnoids Bx: Antral biopsies: mild chronic gastritis. Intestinal metaplasia. (-) HP. Irregular GE junction: Benign reactive squamous hyperplasia with mild chronic inflammation, consistent with GERD. Mild chronic carditis. Negative for intestinal metaplasia. Cecaum and ascending biopsies: Unremarkable colonic mucosa. Sigmoid and rectum biopsies: Unremarkable colonic mucosa. ASSESSMENT 1. Acute uncomplicated diverticulitis of the descending colon 2. Hematochezia 3. Leukocytosis PLAN - Continue Rocephin / Flagyl as at present - Stool log - Monitor for additional overt GI blood loss - Follow up stool culture and O+P as previously ordered - Daily CBC and BMP - Clear liquid diet - Will need outpatient colonoscopy in 6 weeks following resolution of acute diverticulitis Thank you for the opportunity to participate in the care of this patient. I will continue to follow with you. SIGNATURE: Britt Dorman APRN.[employer]ST FRONT PRESSER DATE: March 05, 2019 TIME: 11:02 AM Pt with clinical picture most consistent with diverticulitis. Must consider colitis, given diarrhea. Will treat as above and order stool studies to r/o infectious colitis. Normal [facility] CT ABD/PEL W IVCONon 019 CT ABD/PEL W IVCON * * *Final Report* * * DATE OF EXAM: Mar 05 2019 9:37AM [facility] 0530 - CT ABD/PEL W IVCON / PROCEDURE REASON: Infection, abdomen-pelvis * * * * Physician Interpretation * * * * EXAMINATION: CT ABDOMEN AND PELVIS WITH IV CONTRAST CLINICAL HISTORY: Infection, abdomen-pelvis Contrast and Creatinine->Wait for labs acute illness abd pain TECHNIQUE: CT of the abdomen and pelvis was performed using standard technique, scanning from just above the dome of the diaphragm to the symphysis pubis. MQ: CTAP_3 Contrast: IV: 100 ml of Omnipaque 300 : ml of CT Radiation dose: Integrated Dose-length product (DLP) for this visit = 734 mGy*cm. CT Dose Reduction Employed: Automated exposure control (AEC) COMPARISON: 06/08/2014 RESULT: Liver: No mass. Mild amorphous hypodensity in the medial segment of the left lobe adjacent to the gallbladder fossa is thought to be focal fatty infiltration. Biliary: Mild prominence of the common duct is unchanged and can be seen status post cholecystectomy. Spleen: No mass. No splenomegaly. Pancreas: No mass or duct dilation. Adrenals: 2.8 cm right adrenal nodule was present previously and is benign. Kidneys: Small cysts were present previously. No hydronephrosis. No suspicious mass. Tiny lower pole left collecting system calculus was present previously. GI tract: Left colonic diverticuli. Wall thickening and surrounding fat stranding involving the descending colon may be diverticulitis. No associated fluid or gas collections. Lymph nodes: No abdominal or pelvic lymphadenopathy. Mesentery/Peritoneum: No ascites or mass. Retroperitoneum: No mass. Vasculature: The celiac axis and SMA are patent. The portal vein and branches, splenic vein, SMV, and hepatic veins are patent. Pelvis: No mass, ascites or fluid collection. Bones/Soft Tissues: Intact Lower thorax: Clear IMPRESSION: Suspected diverticulitis as described [place] Agent: ASHOK Transcribe Date/Time: Mar 05 2019 9:47A Dictated by : RICARDO BARRIOS MD This examination was interpreted and the report reviewed and electronically signed by: RICARDO BARRIOS MD on Mar 05 2019 9:54AM EST [id number] Normal [facility] Comp Metabolic Panelon 03-05 Albumin mass conc 4.3 g/dL Normal 3.9-4.9 [facility] Comment on above: Performed By: #### C BCDIF, LIPA, PT, PTT, CMP #### [facility] [address] [address] ALP enzyme act/vol 103 U/L Normal 34-123 [facility] Comment on above: Performed By: #### C BCDIF, LIPA, PT, PTT, CMP #### [facility] [address] [place] [address] ALT enzyme act/vol 30 U/L Normal 7-38 [facility] Comment on above: Performed By: #### C BCDIF, LIPA, PT, PTT, CMP #### [facility] [address] [place] [address] Anion gap molar conc 11 mmol/L Normal 9-18 [facility] Comment on above: Performed By: #### C BCDIF, LIPA, PT, PTT, CMP #### [facility] [address] [place] [address] AST enzyme act/vol 25 U/L Normal 13-35 [facility] Comment on above: Performed By: #### C BCDIF, LIPA, PT, PTT, CMP #### [facility] [address] [place] [address] Bilirubin mass conc 1.1 mg/dL Normal 0.2-1.3 [facility] Comment on above: Performed By: #### C BCDIF, LIPA, PT, PTT, CMP #### [facility] [address] [place] [address] Calcium mass conc 9.3 mg/dL Normal 8.5-10.2 [facility] Comment on above: Performed By: #### C BCDIF, LIPA, PT, PTT, CMP #### [facility] [address] [place] [address] Chloride molar conc 101 mmol/L Normal 97-105 [facility] Comment on above: Performed By: #### C BCDIF, LIPA, PT, PTT, CMP #### [facility] [address] [facility] [phone] CO2 molar conc 27 mmol/L Normal 22-30 [facility] Comment on above: Performed By: #### C BCDIF, LIPA, PT, PTT, CMP #### [facility] [address] [facility] [phone] Creatinine mass conc 0.63 mg/dL Normal 0.58-0.96 [facility] Comment on above: Performed By: #### C BCDIF, LIPA, PT, PTT, CMP #### [facility] [address] [facility] [phone] eGFR- Amer. >60 Normal [facility] Comment on above: Performed By: #### C BCDIF, LIPA, PT, PTT, CMP #### [facility] [address] [facility] [phone] GFR/1.73 sq M predicted among non-blacks MDRD vol rate/area (S/P/Bld) mL/min/{1.73_m2} Normal [facility] Comment on above: Result Comment: eGFR (Estimated GFR) Units of measure: mL/min/1.73 meters squared eGFR is derived from the reexpressed MDRD Study equation using the following parameters: serum creatinine, age, gender and race. The creatinine assay has been calibrated to be traceable to IDMS. An eGFR <60 mL/min/1.73m2 for >3 months is consistent with chronic kidney disease. Refer to KDOQI guidelines for clinical interpretation. In patients with unstable renal function, e.g. those with acute kidney injury, the eGFR may not accurately reflect actual GFR. Performed By: #### C BCDIF, LIPA, PT, PTT, CMP #### [facility] [address] [facility] [phone] Glucose mass conc 135 mg/dL High 74-99 [facility] Comment on above: Result Comment: The [place] Diabetes Association (ADA) provides guidance for cutoff values for fasting glucose and random glucose. The ADA defines fasting as no caloric intake for at least 8 hours. Fasting plasma glucose results between 100 to 125 mg/dL indicate increased risk for diabetes (prediabetes). Fasting plasma glucose results greater than or equal to 126 mg/dL meet the criteria for diagnosis of diabetes. In the absence of unequivocal hyperglycemia, results should be confirmed by repeat testing. In a patient with classic symptoms of hyperglycemia or hyperglycemic crisis, random plasma glucose results greater than or equal to 200 mg/dL meet the criteria for diagnosis of diabetes. Reference: Standards of Medical Care in Diabetes 2016, [place] [employer] Association. Diabetes Care. 2016.39(Suppl 1). Performed By: #### C BCDIF, LIPA, PT, PTT, CMP #### [facility] [address] [place] [address] Potassium molar conc 4.1 mmol/L Normal 3.7-5.1 [facility] Comment on above: Performed By: #### C BCDIF, LIPA, PT, PTT, CMP #### [facility] [address] [place] [address] Protein mass conc 7.3 g/dL Normal 6.3-8.0 [facility] Comment on above: Performed By: #### C BCDIF, LIPA, PT, PTT, CMP #### [facility] [address] [place] [address] Sodium molar conc 139 mmol/L Normal 136-144 [facility] Comment on above: Performed By: #### C BCDIF, LIPA, PT, PTT, CMP #### [facility] [address] [place] [address] Urea nitrogen mass conc 20 mg/dL Normal 7-21 [facility] Comment on above: Performed By: #### C BCDIF, LIPA, PT, PTT, CMP #### [facility] [address] [place] [address] ED NOTEon 03-05-2019 ED NOTE HNO ID: [id number] Author: Evelyn GilliamRn) Raul, RN Service: ? Author Type: Registered Nurse Type: ED Notes Filed: 03/05/2019 11:16 AM Note Text: Report called to [place] on 4S. Bed is ready [facility] ED NOTE HNO ID: [id number] Author: Evelyn GilliamRn) Raul, RN Service: ? Author Type: Registered Nurse Type: ED Notes Filed: 03/05/2019 11:15 AM Note Text: States pain is much better. [facility] ED NOTE HNO ID: [id number] Author: Bishop Fowler MD Service: ? Author Type: Physician Type: ED Notes Filed: 03/05/2019 8:19 AM Note Text: Attending Note I have personally performed a face to face assessment of the patient and have reviewed the PA/ACCREDITED FARM MANAGER note. My kwon findings include: History - Ms. Macias is a pleasant 63-year-old female presenting today with a history of diverticulitis now with about 12 or so hours of lower abdominal discomfort in her suprapubic/right lower quadrant areas, gradually worsening, relatively intense this morning, as well as some nausea and vomiting and diarrhea with minimal blood in it, all similar to her previous diverticulitis. She called Dr. Singleton's office, who told her to come here, and wanted to be apprised of the findings of her workup. It told her she needed a CT scan. She's had some subjective fevers and chills. She needed admission the last time this happened. Exam - suprapubic and mild RLQ tenderness, no distress. Assessment/Plan - Ms. Macias is a pleasant 63-year-old female presenting today with lower abdominal discomfort and nausea and vomiting and diarrhea, some with blood. She is mildly tender. She does not appear to be in distress. We will control her pain and her nausea and give her IV fluid and reassess after CT scan and labs. Other additions or changes: None Signature: Bishop Fowler MD Date: 03/05/2019 Time: 8:17 AM [facility] ED NOTE HNO ID: [id number] Author: Evelyn Piper) JAYDEN Carter Service: ? Author Type: Registered Nurse Type: ED Notes Filed: 03/05/2019 8:32 AM Note Text: Plan of care -Monitor Patient's Vital Signs for changes in condition -Monitor patient for changes in pain -Maintain patient safety and privacy -Provide comfort measures-Call light in place -Bed in locked and low position [facility] ED NOTE HNO ID: [id number] Author: Evelyn Piper) JAYDEN Carter Service: ? Author Type: Registered Nurse Type: ED Notes Filed: 03/05/2019 7:51 AM Note Text: Started with abd pain and vomiting last night. Continues with bloody diarrhea and abd pain today. [facility] ED PROV NOTEon 03-05-2019 Protein mass conc HNO ID: [id number] Author: Bisohp Fowler MD Service: General Surgery Author Type: Physician Type: ED Provider Notes Filed: 03/05/2019 10:09 AM Note Text: ED Provider Note Patient Name: Christina Macias SERVICE DATE: 03/05/19 History Patient presents with: Abdominal Pain Diarrhea: Diarrhea is bloody HPI: Mrs Christina Macias is a 63yo female with PMH of diverticulosis/diverti culitis and HTN, who presents to the ED with abdominal pain, diarrhea, bloody diarrhea believed by her to be secondary to diverticulitis. Mrs. Macias states diarrhea and abdominal pain started previous night and was associate with nausea symptoms, and gradually became worse to this morning she noticed bloody diarrhea. She states that the pain is localized to the lower abdomen, and is painful in RLQ and LLQ. Mrs. Macias states she had sever pain symptoms early on, but not right now unless palpated. She denies blood in urine, dysuria, chest pain, SOB, LE/UE weakness, numbess or tingling in extremities. Mrs. Macias states that she was diagnosed ~10yr prior with diverticulosis and had multiple flares during the first 5 years requiring antibiotics and hospitalization. She has not had a flare of diverticulitis for the past 5 years, and states that she has kept up to date with colonoscopies and to her knowledge they were normal. PAST MEDICAL HISTORY Diagnosis Date - Diverticulosis of colon (without mention of hemorrhage) colonoscopy 08/14 - Essential hypertension, benign - IBS (irritable bowel syndrome) - Pneumonia 08/2014 PAST SURGICAL HISTORY Procedure Laterality Date - COLONOSCOPY 06/2010 - DANDC, DIAG AND/OR THERAPEUTIC Dilation AND curettage - LAPAROSCOPIC CHOLEYCYSTECTOMY 09/2009 - PAST SURGICAL HISTORY OF [id number] bilat knee arthroscopic - REMOVE TONSILS/ADENOIDS,<12 Y/O Tonsil/adenoidectomy FAMILY HISTORY Problem Relation Age of Onset - Ischemic Heart Disease Father age 46 - Cancer Mother lung - Ischemic Heart Disease Unknown nephew Social History Tobacco Use - Smoking status: Former Smoker Packs/day: 2.00 Years: 25.00 Pack years: 50.00 Types: Cigarettes Last attempt to quit: 11/10/1997 Years since quittin.3 - Smokeless tobacco: Never Used Substance and Sexual Activity - Alcohol use: Yes Comment: rare - Drug use: No - Sexual activity: Yes Partners: Male ALLERGIES No Known Allergies Review of Systems Constitutional: Positive for appetite change, chills and fever. HENT: Negative for ear pain, rhinorrhea and sore throat. Respiratory: Negative for cough and shortness of breath. Cardiovascular: Negative for chest pain and leg swelling. Gastrointestinal: Positive for blood in stool, diarrhea, nausea and vomiting. Negative for abdominal pain. Genitourinary: Negative for dysuria, flank pain, frequency and hematuria. Musculoskeletal: Negative for back pain. Skin: Negative for rash. Neurological: Negative for speech difficulty, weakness, light-headedness, numbness and headaches. Psychiatric/Behavioral : Negative for hallucinations and suicidal ideas. : Physical Exam BP 164/73 Pulse 84 Resp 18 Ht 5' 6 (1.68m) Wt 195 lb (88.5kg) SpO2 97% BMI 31.49 kg/(m2). O2 Therapy: Room Air Physical Exam General: AANDO, not in acute distress, cooperative and friendly Eyes: anicteric Ears: hearing intact, no discharge Nose: no discharge Lungs: CTAB anteriorly CV: RRR normal S1/S2, no murmurs gallops rubs appreciated. Abdominal: +BS 4quadrants, TTP in RLQ and LLQ, no hepatomegaly/organomeg buzz appreciated Diagnostic Testing ED Labs Ordered and Reviewed - No data to display Procedures: CT scan w/o contrast CBC CMP ED Course / Clinical Impression Clinical Impressions as of Mar 05 100 Diverticulitis MDM / Disposition / Plan MDM Dx: diverticulitis, hemorraghic diarrhea, viral infection, perforation in GI tract SIGNATURE: Elia Carmona MS Attending Note I have personally performed a face to face assessment of the patient and?have reviewed the medical student note.?My kwon findings include: History - Ms. Macias is a pleasant 63-year-old female presenting today with a history of diverticulitis now with about 12 or so hours of lower abdominal discomfort in her suprapubic/right lower quadrant areas, gradually worsening, relatively intense this morning, as well as some nausea and vomiting and diarrhea with minimal blood in it, all similar to her previous diverticulitis. She called Dr. Singleton's office, who told her to come here, and wanted to be apprised of the findings of her workup. It told her she needed a CT scan. She's had some subjective fevers and chills. She needed admission the last time this happened. Exam - suprapubic and mild RLQ tenderness, no distress. Assessment/Plan - Ms. Macias is a pleasant 63-year-old female presenting today with lower abdominal discomfort and nausea and vomiting and diarrhea, some with blood. She is mildly tender. She does not appear to be in distress. We will control her pain and her nausea and give her IV fluid and reassess after CT scan and labs. CT diverticulitis. WBC 12.5. C/S Dr. Nugent - IV abx, Dr. Coburn will admit, ceftriaxone, flagyl. ? Other additions or changes: as above ? Signature: Bishop Fowler MD Date: 03/05/2019 Time: 8:17 AM Bishop Fowler MD 03/05/19 1009 Normal [facility] HISTORY PHYSICALon 9 HISTORY PHYSICAL HNO ID: [id number] Author: Saba Coburn Service: Hospital Medicine Author Type: Physician Type: HANDP Filed: 03/05/2019 2:06 PM Note Text: SERVICE DATE: 03/05/2019 SERVICE TIME: 2:05 PM HOSPITAL MEDICINE HISTORY AND PHYSICAL PCP: King Mullen MD NIGHT AND WEEKEND COVERAGE: Nights: Please contact pager [phone]. SUBJECTIVE Chief Complaint: Abdominal pain HPI: This is a 63 yo F hx of HTN presents with one day of abdominal pain. Symptoms started last night with pain in the LLQ and across the bottom of her abdomen. She had cramping pains and then had loose bloody stools. Symptoms were similar to her two episodes of diverticulitis in the past. She tried clear liquids and resting but she did not improve overnight. Dr. Singleton instructed her to come to the ED. CT scan of the abdomen was done and suggested diverticulitis. She was started on antibiotics. She reports feeling a little better. She still has some pain. No diarrhea since arrival to the hospital. No fever or chills. No nausea or vomiting and no chest pain or shortness of breath. PAST MEDICAL HISTORY Diagnosis Date - Diverticulosis of colon (without mention of hemorrhage) colonoscopy 08/14 - Essential hypertension, benign - IBS (irritable bowel syndrome) - Pneumonia 08/2014 PAST SURGICAL HISTORY Procedure Laterality Date - COLONOSCOPY 06/2010 - DANDC, DIAG AND/OR THERAPEUTIC Dilation AND curettage - LAPAROSCOPIC CHOLEYCYSTECTOMY 09/2009 - PAST SURGICAL HISTORY OF [id number] bilat knee arthroscopic - REMOVE TONSILS/ADENOIDS,<12 Y/O Tonsil/adenoidectomy FAMILY HISTORY Problem Relation Age of Onset - Ischemic Heart Disease Father age 46 - Cancer Mother lung - Ischemic Heart Disease Unknown nephew Social History Tobacco Use - Smoking status: Former Smoker Packs/day: 2.00 Years: 25.00 Pack years: 50.00 Types: Cigarettes Last attempt to quit: 11/10/1997 Years since quittin.3 - Smokeless tobacco: Never Used Substance Use Topics - Alcohol use: Yes Comment: rare - Drug use: No Medications: Reviewed Allergies: ALLERGIES No Known Allergies Review of Systems: GENERAL: No weight loss, malaise or fevers HEENT: Negative for frequent or significant headaches, No changes in hearing or vision, no nose bleeds or other nasal problems NECK: Negative for lumps, goiter, pain and significant neck swelling RESPIRATORY: Negative for cough, hemoptysis, wheezing, COPD, dyspnea or shortness of breath CARDIOVASCULAR: Negative for chest pain, leg swelling, hypertension, CHF or palpitations GI: No nausea, vomiting, +abdominal pain and bloody stools : No history of dysuria, frequency or incontinence MUSCULOSKELETAL: Negative for joint pain or swelling, back pain or muscle pain SKIN: Negative for lesions, rash, and itching PSYCH: Negative for sleep disturbance, mood disorder and recent psychosocial stressors HEMATOLOGY/LYMPHOLOGY: Negative for prolonged bleeding, bruising easily or swollen nodes ENDOCRINE: Negative for cold or heat intolerance, polyuria, polydipsia and goiter NEURO: No history of headaches, syncope, paralysis, seizures or tremors OBJECTIVE: PHYSICAL EXAM BP 154/66 Pulse 80 Temp (Src) 97.3 (Axillary) Resp 20 Ht 5' 5.984 (1.68m) Wt 195 lb (88.5kg) SpO2 96% BMI 31.49 kg/(m2). O2 Therapy: Room Air Physical Exam Performed: GENERAL: Alert, no distress, cooperative SKIN: Skin color, texture, turgor normal. No rashes or lesions. HEAD/SINUSES: No significant findings EYES: PERRL, EOMI EARS: External ears normal, NOSE: Nares normal. OROPHARYNX: Lips, mucosa, and tongue normal. . Oropharynx normal. NECK: No jugulovenous distention, BACK: Back symmetric, Normal curvature, ROM normal, No CVAT. LUNGS: Lungs clear to auscultation, Good diaphragmatic excursion CARDIAC: Normal S1 and S2; no rubs, murmurs, or gallops ABDOMEN: Abdomen soft, mildly tender in both lower quadrants, BS normal, EXTREMITIES: Extremities normal, no deformities, edema, clubbing or skin discoloration. Good capillary refill., No ulcers NEURO: Reflexes normal and symmetric. Sensation grossly intact, Cranial nerves II-XII intact PULSES: 2+ radial, 2+ carotid Lines, Drains, and Airways Line Peripheral 03/05/19 0800 Short Left Hand 20 Gauge less than 1 day Reviewed lines, drains, AND airways. Need to be continued yes Diagnostic tests reviewed: Most recent labs and imaging results CARE COORDINATION: No Patient Care Coordination Note on file. ASSESSMENT AND PLAN Assessment AND Plan, all Hosp Problems Active Hospital Problems as of 03/05/2019 Noted - Resolved Hospital * (Principal) Diverticulitis 03/05/2019 - Present Current Assessment AND Plan Assessment: similar presentation to her past episodes. She is feeling a little better already PLAN: Ceftriaxone and flagyl Clear liquid diet IVF for 1L NS GI consulted Essential hypertension, benign 03/22/2002 - Present Current Assessment AND Plan Assessment: stable PLAN: Continue on lisinopril and metoprolol Hold HCTZ today Medication and Non-Pharmacologic VTE Prophylaxis/Anticoagul ants Anticoagulant AND Antiplatelet Medications (From admission, onward) Start Dose Route Frequency Ordered Stop 03/05/19 1300 aspirin, enteric coated 81 mg tab(s) 81 mg ORAL DAILY 03/05/19 1244 -- 03/05/19 1245 vte non-pharmacologic prophylaxis - none indicated (ri,oh) 03/05/19 1245 activity - mobilize patient (ri,ma) VTE Prophylaxis: VTE prophylaxis appropriate Plan of care d/w patient and at bedside. Dr. Nugent SIGNATURE: Saba Coburn DO PATIENT NAME: Christina Macias DATE: March 05, 2019 TIME: 2:05 PM PAGER/CONTACT #: [id number] Normal [facility] Lipaseon 03-05-2019 Lipase enzyme act/vol 24 U/L Normal 16-61 [facility] Comment on above: Performed By: #### C BCDIF, LIPA, PT, PTT, CMP #### [facility] [address] [facility] [phone] NURSING PROGon 03-05-2019 Protein mass conc HNO ID: [id number] Author: Merline (Rn) JAYDEN Thompson Service: ? Author Type: Registered Nurse Type: Nursing Progress Note Filed: 03/10/2019 8:13 PM Note Text: Nursing Progress Note Patient Name: Christina Macias Patient Location: [place] [address]/[facility]- __ Daily Note: 1900- Bedside report received from day shift RN. No complaints per patient. Call light and possessions within reach. 2100- Passed evening medications. No reports of diarrhea per patient. Call light and possessions within reach. 2300- IVF infusion completed and taken down. Patient resting in bed, no complaints expressed. 0100- Patient observed asleep in bed. 0300- Patient observed asleep in bed. 0500- This note was completed by: Merline Thompson RN Normal [facility] Protimeon 03-05-2019 Prothrombin time (PT) Coag time (PPP) 1.0 s Normal 0.9-1.3 [facility] Comment on above: Result Comment: Kierra min K Antagonist (VKA) Therapeutic Range: INR 2 to 3 (Target INR of 2.5) Note: For patients treated with VKA drugs, such as warfarin, the [place] [employer] 2012 Guideline recommends a therapeutic INR range of 2 to 3 (target INR of 2.5). This recommendation includes high-risk patients with antiphospholipid syndrome with previous arterial or venous thromboembolism, current-generation mechanical or bioprosthetic aortic heart valve replacement. Note: Patients with mechanical aortic valve replacement and additional risk factors for thromboembolic events (atrial fibrillation, previous thromboembolism, LV dysfunction, hypercoagulable conditions) or an older generation mechanical AVR (i.e., ball in-Cage) or any mechanical MVR should have a INR therapeutic range of 2.5 to 3.5 (target INR of 3). Jasiel GH, et al. Chest 2012, 141:7S-47S Maikel RA, et al. [facility] 2017, 70: 252-289 Specimen moderately hemolyzed Performed By: #### C BCDIF, LIPA, PT, PTT, CMP #### [facility] [address] [facility] [phone] Prothrombin time (PT) Coag time (PPP) 10.1 s Normal 9.7-13.0 [facility] Comment on above: Result Comment: Spec imen moderately hemolyzed Performed By: #### C BCDIF, LIPA, PT, PTT, CMP #### [facility] [address] [facility] [phone] Vital Signs Date Time Vital Sign Value Performing Clinician Facility 01-27-2025 14:22-0400 Body height 167.[address] Andrew Billingsley MD Work Phone: [facility] 01-27-2025 14:22-0400 Body mass index (BMI) [Ratio] 24.8 kg/m2 Dr. Andrew Billingsley MD Work Phone: [facility] 01-27-2025 14:22-0400 Body temperature 98.2 [degF] Dr. Andrew Billingsley MD Work Phone: [facility] 01-27-2025 14:22-0400 Body weight 69.[address] Andrew Billingsley MD Work Phone: [facility] 01-27-2025 14:22-0400 Diastolic blood pressure 71 mm[Hg] Dr. Andrew Billingsley MD Work Phone: [facility] 01-27-2025 14:22-0400 Heart rate 56 /min Dr. Andrew Billingsley MD Work Phone: [facility] 01-27-2025 14:22-0400 Respiratory rate 16 /min Dr. Andrew Billingsley MD Work Phone: [facility] 01-27-2025 14:22-0400 SaO2% (BldA) [Mass fraction] 98 % Dr. Andrew Billingsley MD Work Phone: [facility] 01-27-2025 14:22-0400 Systolic blood pressure 136 mm[Hg] Dr. Andrew Billingsley MD Work Phone: [facility] 12-14-2024 00:42-0500 Body temperature 98 [degF] Dr. Andrew Billingsley MD Work Phone: [facility] 12-14-2024 00:42-0500 Diastolic blood pressure 67 mm[Hg] Dr. Andrew Billingsley MD Work Phone: [facility] 12-14-2024 00:42-0500 Heart rate 58 /min Dr. Andrew Billingsley MD Work Phone: [facility] 12-14-2024 00:42-0500 Respiratory rate 16 /min Dr. Andrew Billingsley MD Work Phone: [facility] 12-14-2024 00:42-0500 SaO2% (BldA) [Mass fraction] 97 % Dr. Andrew Billingsley MD Work Phone: [facility] 12-14-2024 00:42-0500 Systolic blood pressure 149 mm[Hg] Dr. Andrew Billingsley MD Work Phone: [facility] 12-13-2024 21:01-0500 Body mass index (BMI) [Ratio] 26.1 kg/m2 Dr. Andrew Billingsley MD Work Phone: [facility] 12-13-2024 21:01-0500 Body weight 73.[address] Andrew Billingsley MD Work Phone: [facility] 05-14-2023 12:46-0400 Body temperature 97.81 [degF] Lynne Aparicio APRN.CNP Work Phone: [facility] 05-14-2023 12:46-0400 Body weight 85.91 kg Lynne Aparicio [employer] Work Phone: [facility] 05-14-2023 12:46-0400 Diastolic blood pressure 82 mm[Hg] Lynne Aparicio [employer] Work Phone: [facility] 05-14-2023 12:46-0400 Heart rate 62 /min Lynne Aparicio [employer] Work Phone: [facility] 05-14-2023 12:46-0400 Respiratory rate 18 /min Lynne Aparicio [employer] Work Phone: [facility] 05-14-2023 12:46-0400 SaO2% (BldA) [Mass fraction] 96 % Lynne Aparicio [employer]IST.[employer] Work Phone: [facility] 05-14-2023 12:46-0400 Systolic blood pressure 128 mm[Hg] Lynne Aparicio [employer] INS[employer]IST.[employer] Work Phone: [facility] 09-09-2022 13:08-0400 Body temperature 97.4 [degF] Dr. Britt Srivastava Work Phone: [facility] Work Phone: 09-09-2022 13:08-0400 Body weight 90.[address] Britt Srivastava Work Phone: [facility] Work Phone: 09-09-2022 13:08-0400 Diastolic blood pressure 77 mm[Hg] Dr. Britt Srivastava Work Phone: [facility] Work Phone: 09-09-2022 13:08-0400 Heart rate 68 /min Dr. Britt Srivastava Work Phone: [facility] Work Phone: 09-09-2022 13:08-0400 Respiratory rate 16 /min Dr. Britt Srivastava Work Phone: [facility] Work Phone: 09-09-2022 13:08-0400 SaO2% (BldA) [Mass fraction] 94 % Dr. Britt Srivastava Work Phone: [facility] Work Phone: 09-09-2022 13:08-0400 Systolic blood pressure 155 mm[Hg] Dr. Britt Srivastava Work Phone: [facility] Work Phone: 07-14-2022 10:25-0400 Diastolic blood pressure 74 mm[Hg] Dr. Britt Srivastava Work Phone: [facility] Work Phone: 07-14-2022 10:25-0400 Heart rate 96 /min Dr. Britt Srivastava Work Phone: [facility] Work Phone: 07-14-2022 10:25-0400 Systolic blood pressure 148 mm[Hg] Dr. Britt Srivastava Work Phone: [facility] Work Phone: 07-14-2022 10:06-0400 Body temperature 97.9 [degF] Dr. Britt Srivastava Work Phone: [facility] Work Phone: 07-14-2022 10:06-0400 Respiratory rate 16 /min Dr. Britt Srivastava Work Phone: [facility] Work Phone: 07-14-2022 10:06-0400 SaO2% (BldA) [Mass fraction] 98 % Dr. Britt Srivastava Work Phone: [facility] Work Phone: 07-12-2022 22:07-0400 Body height 167.[address] Britt Srivastava Work Phone: [facility] Work Phone: 07-12-2022 21:09-0400 Body temperature 97.6 [degF] Dr. Britt Srivastava Work Phone: [facility] Work Phone: 07-12-2022 21:09-0400 Diastolic blood pressure 68 mm[Hg] Dr. Britt Srivastava Work Phone: [facility] Work Phone: 07-12-2022 21:09-0400 Heart rate 108 /min Dr. Britt Srivastava Work Phone: [facility] Work Phone: 07-12-2022 21:09-0400 Respiratory rate 16 /min Dr. Britt Srivastava Work Phone: [facility] Work Phone: 07-12-2022 21:09-0400 SaO2% (BldA) [Mass fraction] 97 % Dr. Britt Srivastava Work Phone: [facility] Work Phone: 07-12-2022 21:09-0400 Systolic blood pressure 157 mm[Hg] Dr. Britt Srivastava Work Phone: [facility] Work Phone: 07-12-2022 16:14-0400 Body height 167.[address] Britt Srivastava Work Phone: [facility] Work Phone: 07-12-2022 16:14-0400 Body mass index (BMI) [Ratio] 33.3 kg/m2 Dr. Britt Srivastava Work Phone: [facility] Work Phone: 07-12-2022 16:14-0400 Body weight 93.[address] Britt Srivastava Work Phone: [facility] Work Phone: 07-12-2022 01:31-0400 Diastolic blood pressure 71 mm[Hg] Dr. Britt Srivastava Work Phone: [facility] Work Phone: 07-12-2022 01:31-0400 Heart rate 80 /min Dr. Britt Srivastava Work Phone: [facility] Work Phone: 07-12-2022 01:31-0400 Respiratory rate 18 /min Dr. Britt Srivastava Work Phone: [facility] Work Phone: 07-12-2022 01:31-0400 SaO2% (BldA) [Mass fraction] 98 % Dr. Britt Srivastava Work Phone: [facility] Work Phone: 07-12-2022 01:31-0400 Systolic blood pressure 138 mm[Hg] Dr. Britt Srivastava Work Phone: [facility] Work Phone: 07-11-2022 21:38-0400 Body mass index (BMI) [Ratio] 32.3 kg/m2 Dr. Britt Srivastava Work Phone: [facility] Work Phone: 07-11-2022 21:38-0400 Body temperature 98.2 [degF] Dr. Britt Srivastava Work Phone: [facility] Work Phone: 07-11-2022 21:38-0400 Body weight 90.[address] Britt Srivastava Work Phone: [facility] Work Phone: 07-10-2022 09:36-0400 Heart rate 61 /min DR GABRIELA SUTHERLAND MD [facility] 07-10-2022 08:18-0400 Body temperature 98.42 [degF] DR GABRIELA SUTHERLAND MD [facility] 07-10-2022 08:18-0400 Diastolic blood pressure 54 mm[Hg] DR GABRIELA SUTHERLAND MD [facility] 07-10-2022 08:18-0400 Heart rate 61 /min DR GABRIELA SUTHERLAND MD [facility] 07-10-2022 08:18-0400 Reason For Taking VItal Signs DR GABRIELA SUTHERLAND MD [facility] 07-10-2022 08:18-0400 Respiratory rate 18 /min DR GABRIELA SUTHERLAND MD [facility] 07-10-2022 08:18-0400 Systolic blood pressure 118 mm[Hg] DR GABRIELA SUTHERLAND MD [facility] 07-10-2022 05:24-0400 Body temperature 97.52 [degF] DR GABRIELA SUTHERLAND MD [facility] 07-10-2022 05:24-0400 Diastolic blood pressure 71 mm[Hg] DR GABRIELA SUTHERLAND MD [facility] 07-10-2022 05:24-0400 Heart rate 71 /min DR GABRIELA SUTHERLAND MD [facility] 07-10-2022 05:24-0400 Mean blood pressure 87 mm[Hg] DR GABRIELA SUTHERLAND MD [facility] 07-10-2022 05:24-0400 Reason For Taking VItal Signs DR GABRIELA SUTHERLAND MD [facility] 07-10-2022 05:24-0400 Respiratory rate 18 /min DR GABRIELA SUTHERLAND MD [facility] 07-10-2022 05:24-0400 Systolic blood pressure 119 mm[Hg] DR GABRIELA SUTHERLAND MD [facility] 07-09-2022 23:45-0400 Body temperature 97.7 [degF] DR GABRIELA SUTHERLAND MD [facility] 07-09-2022 23:45-0400 Diastolic blood pressure 69 mm[Hg] DR GABRIELA SUTHERLAND MD [facility] 07-09-2022 23:45-0400 Heart rate 79 /min DR GABRIELA SUTHERLAND MD [facility] 07-09-2022 23:45-0400 Mean blood pressure 93 mm[Hg] DR GABRIELA SUTHERLAND MD [facility] 07-09-2022 23:45-0400 Reason For Taking VItal Signs DR GABRIELA SUTHERLAND MD [facility] 07-09-2022 23:45-0400 Respiratory rate 16 /min DR GABRIELA SUTHERLAND MD [facility] 07-09-2022 23:45-0400 Systolic blood pressure 140 mm[Hg] DR GABRIELA SUTHERLAND MD [facility] 07-09-2022 19:35-0400 Heart rate 84 /min DR GABRIELA SUTHERLAND MD [facility] 07-09-2022 19:35-0400 Mean blood pressure 88 mm[Hg] DR GABRIELA SUTHERLAND MD [facility] 07-09-2022 17:29-0400 Heart rate 76 /min DR GABRIELA SUTHERLAND MD [facility] 07-09-2022 15:34-0400 Heart rate 94 /min DR GABRIELA SUTHERLAND MD [facility] 07-09-2022 10:45-0400 Heart rate 78 /min DR GABRIELA SUTHERLAND MD [facility] 07-09-2022 10:30-0400 Body height 167.[address] GABRIELA SUTHERLAND MD [facility] 07-09-2022 10:30-0400 Body weight 90.[address] GABRIELA SUTHERLAND MD [facility] 07-09-2022 10:30-0400 Body weight 32.36 kg/m2 DR GABRIELA SUTHERLAND MD [facility] 07-09-2022 10:13-0400 Diastolic Blood Pressure NBP [address] GABRIELA SUTHERLAND MD [facility] 07-09-2022 10:13-0400 Systolic Blood Pressure NBP [address] GABRIELA SUTHERLAND MD [facility] 07-09-2022 10:00-0400 Diastolic Blood Pressure NBP [address] GABRIELA SUTHERLAND MD [facility] 07-09-2022 10:00-0400 Systolic Blood Pressure NBP [address] GABRIELA SUTHERLAND MD [facility] 07-09-2022 09:45-0400 Diastolic Blood Pressure NBP [address] GABRIELA SUTHERLAND MD [facility] 07-09-2022 09:45-0400 Systolic Blood Pressure NBP [address] GABRIELA SUTHERLAND MD [facility] 07-09-2022 09:01-0400 Body temperature 97.34 [degF] DR GABRIELA SUTHERLAND MD [facility] 07-09-2022 05:49-0400 Body height 167.[address] GABRIELA SUTHERLAND MD [facility] 07-09-2022 05:49-0400 Body temperature 95.54 [degF] DR GABRIELA SUTHERLAND MD [facility] 07-09-2022 05:49-0400 Body weight 90.[address] GABRIELA SUTHERLAND MD [facility] 06-28-2022 09:29-0400 Body height 167.[address] GABRIELA SUTHERLAND MD [facility] 06-28-2022 09:29-0400 Body weight 90.[address] GABRIELA SUTHERLAND MD [facility] 06-28-2022 09:29-0400 Body weight 32.36 kg/m2 DR GABRIELA SUTHERLAND MD [facility] 06-28-2022 09:29-0400 diastolic 74 mm[Hg] DR GABRIELA SUTHERLAND MD [facility] 06-28-2022 09:29-0400 Heart rate 72 /min DR GABRIELA SUTHERLAND MD [facility] 06-28-2022 09:29-0400 systolic 138 mm[Hg] DR GABRIELA SUTHERLAND MD [facility] 05-15-2022 09:22-0400 Diastolic blood pressure 68 mm[Hg] King Mullen MD Work Phone: [facility] 05-15-2022 09:22-0400 Systolic blood pressure 128 mm[Hg] King Mullen MD Work Phone: [facility] 05-15-2022 08:56-0400 Body weight 90.27 kg King Mullen MD Work Phone: [facility] 05-15-2022 08:56-0400 Heart rate 65 /min King Mullen MD Work Phone: [facility] 05-15-2022 08:56-0400 SaO2% (BldA) [Mass fraction] 99 % King Mullen MD Work Phone: [facility] Encounters Encounter Date Encounter Type Care Provider Facility Start: 07-05-2025 ambulatory Andrewaspen Billingsley Facility :[facility] Start: 02-16-2025 End: 02-16-2025 ambulatory [facility] Facility:[facility] Start: 01-27-2025 End: 01-27-[address] Andrew Billingsley MD -[facility] Work Phone: Start: 01-27-2025 End: 01-27-2025 ambulatory Andrew Billingsley Facility:[facility] Start: 01-20-2025 End: 01-20-[address] Andrew Billingsley MD Work Phone: [facility] Work Phone: Start: 01-20-2025 End: 01-20-[address] Andrew Billingsley MD -Laboratory Work Phone: Start: 01-20-2025 End: 01-20-2025 ambulatory Andrew Billingsley Facility:[facility] Start: 12-13-2024 End: 12-14-2024 Emergency department patient visit Thomas Quintanilla DO -Emergency Department Work Phone: Start: 09-15-2024 End: 09-15-2024 ambulatory Andrew Analilia Facility:[facility] Start: 09-09-2024 End: 09-09-[address] [facility] Facility:[facility] Start: 09-04-2023 End: 09-04-2023 ambulatory [facility] Work Phone: Start: 09-04-2023 End: 09-04-2023 Patient encounter procedure [facility]-Laboratory Work Phone: Start: 05-14-2023 End: 05-14-2023 ambulatory ANRDEW BILLINGSLEY Facility:[facility] Start: 05-14-2023 End: 05-14-2023 Patient encounter procedure Lynne Aparicio APRN.CNP Work Phone: [facility] Comment on above: Bilateral impacted c erumen (Primary Dx) Start: 05-07-2023 End: 05-07-2023 Patient encounter procedure [facility]-Laboratory Work Phone: Start: 03-28-2023 End: 03-28-2023 ambulatory [facility] Work Phone: Start: 03-28-2023 End: 03-28-2023 Patient encounter procedure [facility]Laboratory Work Phone: Start: 09-30-2022 End: 09-30-[address] Britt Srivastava Work Phone: [facility] Work Phone: Start: 09-30-2022 End: 09-30-[address] Britt Srivastava Work Phone: [facility]-Laboratory Start: 09-09-2022 ambulatory King peters MD Work Phone: [employer] [facility] Comment on above: New doctor Start: 09-09-2022 End: 09-09-[address] Britt Srivastava Work Phone: [facility] [place] Start: 08-07-2022 Non-patient / Non-visit Dr. Cesar Srivastava Work Phone: [facility] Internal Medicine Start: 07-14-2022 Non-patient / Non-visit Dr. Cesar Srivastava Work Phone: [facility] Inpatient Physicians Start: 07-13-2022 End: 07-14-2022 Evaluation and management of inpatient Dr. Britt Srivastava Work Phone: [facility]-Progressive Care Unit Start: 07-12-2022 Non-patient / Non-visit Dr. Cesar Srivastava Work Phone: [facility] [facility] Start: 07-12-2022 Evaluation and manag ement of inpatient Dr. Britt Srivastava Work Phone: [facility] Care Unit Start: 07-12-[address] Carline Srivastava Work Phone: [facility] Work Phone: Start: 07-11-2022 End: 07-12-2022 Emergency department patient visit Dr. Britt Srivastava Work Phone: [facility]-Emergency Department Start: 07-09-2022 End: 07-10-[address] GABRIELA SUTHERLAND MD [facility] Start: 06-28-2022 End: 06-28-[address] GABRIELA SUTHERLAND MD [facility] Start: 05-15-2022 End: 05-15-2022 Patient encounter procedure King Mullen MD Work Phone: [employer] Comment on above: HTN (hypertension), benign (Primary Dx); Prediabetes; Hyperlipidemia, unspecified hyperlipidemia type; Vitamin D deficiency; Primary osteoarthritis of right hip; Preop examination Start: 05-15-2022 End: 05-15-2022 Preprocedural examination done King Mullen MD Work Phone: [employer] [facility] Start: 04-15-2022 ambulatory Flori (Pcna)( Hist) Gross [facility] Start: 04-15-2022 Patient encounter procedure Flori (Pcna)(Hist) Ruth [facility] Comment on above: Appointment ([facility]) Start: 02-09-2022 Refill King peters MD Work Phone: [employer] Comment on above: Refill Request Start: 03-05-2019 End: 03-06-2019 Patient encounter procedure SABA A [facility] Procedures Date Procedure Procedure Detail Performing Clinician Start: 12-13-2024 CT of head without contrast Dr. Andrew Billingsley MD Work Phone: Start: 07-12-2022 Computed tomography of abdomen and pelvis with contrast Dr. Britt Srivastava Work Phone: Start: 03-06-2021 Adult depression scr eening assessment King Mullen MD Work Phone: Start: 07-20-2020 Mammography King Mullen MD Work Phone: Start: 05-10-2019 Colonoscopy King Mullen MD Work Phone: Bilateral cataracts (disorder) DR GABRIELA SUTHERLAND MD Comment on above: bilateral Cholecystectomy DR GABRIELA SADLER MD Clostridium difficil e detection Dr. Britt Srivastava Work Phone: Knee region structur e (body structure) DR GABRIELA SUTHERLAND MD Comment on above: bilateral knee scope Plan of Treatment Date Care Activity Detail Author Start: 01-16-2030 Urine microalbumin profile DTAP,TDAP,TD (3 - Td or Tdap) [facility] Start: 01-14-2027 LIPID SCREEN LIPID SCREEN [facility] Start: 01-14-2025 DIABETES SCREEN DIABETES SCREEN [facility] Start: 12-14-[address] [facility] Start: 05-10-2024 Colonoscopy COLONOSCOPY [facility] Start: 05-10-2024 COLORECTAL CANCER SCREENING COLORECTAL CANCER SCREENING [facility] Start: 07-11-2023 Influenza vaccination INFLUENZA (#1) [facility] Start: 05-15-2023 ANNUAL PCP TEAM CRIME VICTIM SPECIALIST TODD DISEASE VISIT ANNUAL PCP TEAM CHRONIC DISEASE VISIT [facility] Start: 05-15-2023 BP CONTROLLED (<130/80) BP CONTROLLE D (<130/80) [facility] Start: 05-15-2023 COVID-19 VACCINE (#1) COVID-19 VACCI NE (#1) [facility] Comment on above: Postponed from 06/20 (Declined at this time) Start: 01-06-2023 BP CONTROLLED (<130/80) BP CONTROLLE D (<130/80) [facility] Start: 11-10-2022 ADVANCE DIRECTIVE DISCUSSION ADVANCE DIRECTIVE DISCUSSION [facility] Start: 11-10-2022 DEPRESSION ASSESSMENT DEPRESSION ASS ESSMENT [facility] Start: 11-08-2022 ANNUAL PCP TEAM CRIME VICTIM SPECIALIST TODD DISEASE VISIT ANNUAL PCP TEAM CHRONIC DISEASE VISIT [facility] Start: 07-14-[address] [facility] Work Phone: Start: 07-14-[address] [facility] Work Phone: Start: 07-13-2022 Admission procedure [facility] Work Phone: Start: 07-12-2022 End: 07-13-2022 [facility] Work Phone: Start: 07-12-2022 Following clinical pathway protocol [facility] Work Phone: Start: 07-12-2022 Assessment of risk o f venous thromboembolism [facility] Work Phone: Start: 07-12-2022 Insertion of cathete r into peripheral vein [facility] Work Phone: Start: 07-12-2022 Oxygen therapy [facility] Work Phone: Start: 07-12-2022 Providing care accor ding to standard [facility] Work Phone: Start: 07-12-2022 Provision of activit y privileges [facility] Work Phone: Start: 07-12-2022 Verification routine [facility] Work Phone: Start: 07-12-2022 Admission procedure [facility] Work Phone: Start: 07-11-2022 Emergency department visit high/urgent severity EMERGENCY DEPT VISIT [facility] Work Phone: Start: 07-11-2022 Influenza vaccination INFLUENZA (#1) [facility] Start: 07-11-2022 Iv infusion hydratio n each additional hour HYDRATE IV INFUSION ADD-ON [facility] Work Phone: Start: 07-11-2022 Ther proph/dx njx ea seql iv push sbst/drug fac TX/PRO/DX INJ 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 [facility] Work Phone: Start: 07-11-2022 Ther proph/dx njx iv push single/1st sbst/drug THER/PROPH/DIAG INJ IV PUSH [facility] Work Phone: Start: 03-06-2022 Adult depression screening assessment DEPRESSION SCREENING [facility] Start: 11-10-2021 ADVANCE DIRECTIVE DISCUSSION ADVANCE DIRECTIVE DISCUSSION [facility] Start: 11-10-2021 DEPRESSION ASSESSMENT DEPRESSION ASS ESSMENT [facility] Start: 07-20-2021 Mammography MAMMOGRAM [facility] Start: 03-13-2020 SHINGRIX VACCINE (3 of 3) STOCKTON GRIX VACCINE (3 of 3) [facility] Start: 2018 BONE DENSITY BONE DENSITY [facility] Start: 04-03-2005 FECAL OCCULT BLOOD FECAL OCCULT BLOO D [facility] Start: 1998 COLOGUARD (FIT-DNA) COLOGUARD (FIT-D NA) [facility] Start: [address] COLONOGRAPHY [facility] Start: 1998 SIGMOIDOSCOPY SIGMOIDOSCOPY [facility] Start: 1971 BP CONTROLLED (<130/80) BP CONTROLLE D (<130/80) [facility] Start: 1958 COVID-19 VACCINE (#1) COVID-19 VACCI NE (#1) [facility] Start: 1958 COVID-19 VACCINE (1) COVID-19 VACCIN E (1) [facility] Giardia lamblia Ag [Presence] in Stool by Immunoassay [facility] Work Phone: Patient Education [facility] Work Phone: Patient referral [facility] Work Phone: Removal impacted cer umen irrigation/lvg unilat AMBULATORY EAR LAVAGE/IRRIGATION Procedures Routine Bilateral impacted cerumen Ordered: 05/14/2023 [facility] Work Phone: Comment on above: Ordered: 05/14/2023 Immunizations Immunization Date Immunization Notes Care Provider Ricardo tavarez 08-17-2022 influenza, injectabl e, quadrivalent, preservative free [facility] 08-17-2022 influenza, seasonal, injectable Dr. Britt Srivastava Work Phone: [facility] 11-08-2021 pneumococcal polysaccharide vaccine, 23 valent King Mullen MD Work Phone: [facility] 10-13-2021 influenza virus vacc ine, unspecified formulation DR GABRIELA SUTHERLAND MD [facility] 10-13-2021 Seasonal, quadrivale nt, recombinant, injectable influenza vaccine, preservative free King Mullen MD Work Phone: [facility] 09-02-2020 influenza virus vacc ine, unspecified formulation King Mullen MD Work Phone: [facility] 09-01-2020 influenza (aIIV4) vaccine, age 65+ yr, quadrivalent, PF (FLUAD QUADRIVALENT) King Mullen MD Work Phone: [facility] Work Phone: 09-01-2020 influenza virus vacc ine, unspecified formulation DR GABRIELA SUTHERLAND MD [facility] 09-01-2020 influenza, high dose seasonal, preservative-free King Mullen MD Work Phone: [facility] 07-22-2019 influenza virus vacc ine, unspecified formulation DR GABRIELA SUTHERLAND MD [facility] 07-22-2019 influenza, high dose seasonal, preservative-free King Mullen MD Work Phone: [facility] 09-10-2018 influenza virus vacc ine, unspecified formulation DR GABRIELA SUTHERLAND MD [facility] 09-10-2018 influenza, high dose seasonal, preservative-free King Mullen MD Work Phone: [facility] 08-12-2017 influenza virus vacc ine, unspecified formulation DR GABRIELA SUTHERLAND MD [facility] 08-12-2017 influenza, injectabl e, quadrivalent, contains preservative King Mullen MD Work Phone: [facility] 10-24-2016 pneumococcal conjuga te vaccine, 13 valent King Mullen MD Work Phone: [facility] 08-17-2016 influenza virus vacc ine, unspecified formulation DR GABRIELA SUTHERLAND MD [facility] 08-17-2016 influenza, injectabl e, quadrivalent, contains preservative King Mullen MD Work Phone: [facility] 08-17-2016 influenza, seasonal, injectable King Mullen MD Work Phone: [facility] 09-23-2015 influenza virus vacc ine, unspecified formulation DR GABRIELA SUTHERLAND MD [facility] 09-23-2015 influenza, injectabl e, quadrivalent, contains preservative King Mullen MD Work Phone: [facility] 09-03-2014 influenza virus vacc ine, unspecified formulation DR GABRIELA SUTHERLAND MD [facility] 09-03-2014 influenza, seasonal, injectable King Mullen MD Work Phone: [facility] 06-17-2014 zoster vaccine, live Philippe Mullen MD Work Phone: [facility] 04-21-2014 pneumococcal polysaccharide vaccine, 23 valent King Mullen MD Work Phone: [facility] 09-11-2013 influenza virus vacc ine, unspecified formulation King Mullen MD Work Phone: [facility] Work Phone: 08-15-2011 influenza virus vacc doretha, unspecified formulation King Mullen MD Work Phone: [facility] 08-01-2010 influenza virus vacc doretha, unspecified formulation King Mullen MD Work Phone: [facility] 07-24-2009 influenza virus vacc doretha, unspecified formulation King Mullen MD Work Phone: [facility] 03-01-2009 tetanus toxoid, redu quan diphtheria toxoid, and acellular pertussis vaccine, adsorbed King Mullen MD Work Phone: [facility] 08-31-2008 influenza virus vacc doretha, unspecified formulation King Mullen MD Work Phone: [facility] 09-19-2007 influenza virus vacc doretha, unspecified formulation King Mullen MD Work Phone: [facility] 09-23-2006 influenza virus vacc doretha, unspecified formulation King Mullen MD Work Phone: [facility] 09-28-2005 influenza virus vacc doretha, unspecified formulation King Mullen MD Work Phone: [facility] 09-11-2004 influenza virus vacc doretha, unspecified formulation King Mullen MD Work Phone: [facility] 10-10-2003 influenza virus vacc doretha, unspecified formulation King Mullen MD Work Phone: [facility] 03-02-1999 tetanus and diphther ia toxoids, adsorbed, preservative free, for adult use (2 Lf of tetanus toxoid and 2 Lf of diphtheria toxoid) King Mullen MD Work Phone: [facility] Work Phone: Payers Date Payer Category Payer Self-pay 2024 Unknown [id number] 2021 Unknown MMO MMO MEDICARE SUPPLEMENT [id number] 2021-Present [phone] [address] [place] [address] Indemnity [id number] 2021 Unknown [id number] 2021 Unknown MMO MMO MEDICARE SUPPLEMENT [id number] 2021-Present [phone] [address] [place] [address] Indemnity [id number] 2018 Medicare MEDICARE MEDICAR E A AND B [id number] 2018-Present [phone] [address] [place] [id number] Medicare [id number] 2018 Medicare [id number] 2018 Medicare MEDICARE MEDICAR E A AND B [id number] 2018-Present [phone] [address] [place] [id number] Medicare [id number] Unknown [id number] Unknown [id number] Unknown [id number] Unknown [id number] Unknown [id number] Unknown [id number] Unknown [id number] Social History Date Type Detail Facility Start: 05-14-2023 End: 12-13-2024 Tobacco smoking status NHIS Ex-smoker [facility] End: 11-10-1997 History of tobacco use Current smoker [facility] End: 11-10-1997 History of tobacco use Cigarette Smoker [facility] Start: 01-06-2022 End: 05-14-2023 Alcohol intake Current drinker of alcohol (finding) [facility] Start: 10-13-2017 History SDOH Alcohol Comment rare [facility] Start: 01-15-2020 History SDOH Social Connections Phone 98 [facility] Start: 01-15-2020 End: 11-06-2021 History SDOH Social Connections Living 3 [facility] Start: 01-15-2020 End: 11-06-2021 History SDOH Stress 1 [facility] Start: 1955 Sex Assigned At Not on file C [facility] Start: 12-15-2021 End: 05-15-2022 Exposure to SARS-CoV-2 (event) Not sure [facility] Start: 06-28-2022 Tobacco smoking status Never s moked tobacco (finding) [facility] Start: 1955 Sex Assigned At Female A [facility] Start: 07-12-2022 End: 09-09-2022 Tobacco smoking status COIS Unknown if ever smoked [facility] Start: 05-14-2023 Cigarettes smoked current (pack per day) - Reported 2 [facility] Start: 05-14-2023 Tobacco use and exposure Smoke less tobacco non-user [facility] Start: 02-01-2025 Sex Female (finding) [facility] Medical Equipment Procedure Code Equipment Code Equipment Origin al Text Equipment Identifier Dates Lens Iol +20 Ty p Acrsf Iq - [id number] Start: 08-22-2011 Lens Iol +21.5 D iop Acrsf Iq - [id number] Start: 09-05-2011 Goals Date Patient Goal Desired Activity /State Functional Status Date Assessment Result Facility 07-14-2022 Functional status Chair [facility] Work Phone: 07-10-2022 Functional Status Room check performed [facility] 07-09-2022 Functional Status [facility] 07-09-2022 Functional Status Dinner Percent 90 [facility] 07-09-2022 Functional Status Mod I [facility] 07-09-2022 Functional Status [facility] 07-09-2022 Functional Status Single level home [facility] 07-09-2022 Functional Status ice on [facility] 07-09-2022 Functional Status Maintained [facility] 06-28-2022 Functional Status Sensory Deficits None A [facility] Mental Status Date Assessment Result Facility 12-13-2024 Cognitive function Level Of Cons ciousness Awake;Alert;Appropriate [facility] Work Phone: 07-14-2022 Cognitive function Voice/Name [facility] Work Phone: 07-10-2022 Mental Status Orientation Asse ssment Oriented x 4 [facility] 07-10-2022 Mental Status Orientation Oriented x 4 [facility] 07-10-2022 Mental Status [facility] 07-09-2022 Mental Status [facility] Clinical Notes 09-18-2021 to 01-27-2025 Note Date & Type Note Facility 01-27-2025 Evaluation note Diagnosis Onset Date Resolution Hypertension chronic January 27, 2025 2:18pm [facility] Work Phone: 1(549) 194-920107-05-2023 NoteHNO ID: [id number] Author: Lynne Aparicio APRN.CNP Service: ? Author Type: Nurse Practitioner Type: Progress Notes Filed: 05/14/2023 1:30 PM Note Text: Subjective HPI HPI Christina Macias is a 67 year old female who presents today for CC of left ear plugged after swimming yesterday. Has tried nothing for relief. Symptoms are worsened by nothing. Risk factors uses qtips in ear canals. .Patient presents with: Ear Problem: Left ear feels clogged x 1 day PAST MEDICAL HISTORY Diagnosis Date Diverticulosis of colon (without mention of hemorrhage) colonoscopy 08/14 Essential hypertension, benign IBS (irritable bowel syndrome) Pneumonia 08/2014 PAST SURGICAL HISTORY Procedure Laterality Date COLONOSCOPY 06/2010 DILATION AND CURETTAGE DXAND/THER NONOBSTETRIC Dilation AND curettage LAPAROSCOPY SURG CHOLECYSTECTOMY 09/2009 PAST SURGICAL HISTORY OF [id number] bilat knee arthroscopic TONSILLECTOMY AND ADENOIDECTOMY Tonsil/adenoidectomy ALLERGIES Patient has no known allergies. MEDICATIONS amLODIPine (NORVASC) 5 mg tablet Take 1 tablet by mouth twice daily. (Patient taking differently: Take 5 mg by mouth once daily.) lisinopril (ZESTRIL, PRINIVIL) 20 mg tablet Take 1 tablet by mouth in the morning and 1 tablet in the evening metoprolol succinate ER (TOPROL XL) 50 mg 24 hr tablet Take 1 tablet by mouth twice daily. cetirizine (ZYRTEC) 10 mg tablet Take 1 tablet by mouth once daily. calcium, elemental, tab Take 1 tablet by mouth once daily. Lactobacillus acidophilus 10 billion cell cap Take once daily multivitamins(DAILY VITAMIN TAB) Take one(1) tablet daily. aspirin(BABY ASPIRIN 81 MG CHEWABLE TAB) Take one(1) tablet daily. chlorthalidone (HYGROTON) 25 mg tablet Take 1 tablet by mouth once daily. FAMILY HISTORY Problem Relation Age of Onset Ischemic Heart Disease Father age 46 Cancer Mother lung Ischemic Heart Disease Other nephew Social History Tobacco Use Smoking status: Former Packs/day: 2.00 Years: 25.00 Pack years: 50.00 Types: Cigarettes Quit date: 11/10/1997 Years since quittin.5 Smokeless tobacco: Never Substance Use Topics Alcohol use: Yes Comment: rare Drug use: No ROS Objective Blood pressure 128/82, pulse 62, temperature 36.6 ?C (97.8 ?F), temperature source Tympanic, resp. rate 18, weight 85.9 kg (189 lb 6.4 oz), SpO2 96 %. Physical Exam Constitutional: General: She is not in acute distress. Appearance: She is not toxic-appearing or diaphoretic. HENT: Head: Normocephalic and atraumatic. Right Ear: Hearing and external ear normal. Left Ear: Hearing and external ear normal. Ears: Comments: Initially unable to see bilat tm d/t cerumen impaction. Procedure: Provider/curette Nurse/lavage After procedure bilat canal clear and bilat tm normal flap of skin in left ear canal slightly obscures exam. Pulmonary: Effort: Pulmonary effort is normal. No accessory muscle usage or respiratory distress. Neurological: Mental Status: She is alert and oriented to person, place, and time. ASSESSMENT/PLAN: 1. Bilateral impacted cerumen - ICD9: 380.4, ICD10: H61.23 Succesful lavage by nurse and curetage by provider I discussed proper ear hygiene F/u for continued s/s. - AMBULATORY EAR LAVAGE/IRRIGATION Lynne Aparicio APRN.[facility]07-05-2023 History of Present illness Narrative* Lynne Aparicio APRN.[employer] - 05/14/2023 1:01 PM EDT Subjective HPI HPI Christina Macias is a 67 year old female who presents today for CC of left ear plugged after swimming yesterday. Has tried nothing for relief. Symptoms are worsened by nothing. Risk factors uses qtips in ear canals. .Patient presents with: Ear Problem: Left ear feels clogged x 1 day PAST MEDICAL HISTORY Diagnosis Date Diverticulosis of colon (without mention of hemorrhage) colonoscopy 08/14 Essential hypertension, benign IBS (irritable bowel syndrome) Pneumonia 08/2014 PAST SURGICAL HISTORY Procedure Laterality Date COLONOSCOPY 06/2010 DILATION & CURETTAGE DX&/THER NONOBSTETRIC Dilation & curettage LAPAROSCOPY SURG CHOLECYSTECTOMY 09/2009 PAST SURGICAL HISTORY OF [id number] bilat knee arthroscopic TONSILLECTOMY & ADENOIDECTOMY <AGE 10 Tonsil/adenoidectomy ALLERGIES Patient has no known allergies. MEDICATIONS amLODIPine (NORVASC) 5 mg tablet Take 1 tablet by mouth twice daily. (Patient taking differently: Take 5 mg by mouth once daily.) lisinopril (ZESTRIL, PRINIVIL) 20 mg tablet Take 1 tablet by mouth in the morning and 1 tablet in the evening metoprolol succinate ER (TOPROL XL) 50 mg 24 hr tablet Take 1 tablet by mouth twice daily. cetirizine (ZYRTEC) 10 mg tablet Take 1 tablet by mouth once daily. calcium, elemental, tab Take 1 tablet by mouth once daily. Lactobacillus acidophilus 10 billion cell cap Take once daily multivitamins(DAILY VITAMIN TAB) Take one(1) tablet daily. aspirin(BABY ASPIRIN 81 MG CHEWABLE TAB) Take one(1) tablet daily. chlorthalidone (HYGROTON) 25 mg tablet Take 1 tablet by mouth once daily. FAMILY HISTORY Problem Relation Age of Onset Ischemic Heart Disease Father age 46 Cancer Mother lung Ischemic Heart Disease Other nephew Social History Tobacco Use Smoking status: Former Packs/day: 2.00 Years: 25.00 Pack years: 50.00 Types: Cigarettes Quit date: 11/10/1997 Years since quittin.5 Smokeless tobacco: Never Substance Use Topics Alcohol use: Yes Comment: rare Drug use: No ROS Objective Blood pressure 128/82, pulse 62, temperature 36.6 C (97.8 F), temperature source Tympanic, resp. rate 18, weight 85.9 kg (189 lb 6.4 oz), SpO2 96 %. Physical Exam Constitutional: General: She is not in acute distress. Appearance: She is not toxic-appearing or diaphoretic. HENT: Head: Normocephalic and atraumatic. Right Ear: Hearing and external ear normal. Left Ear: Hearing and external ear normal. Ears: Comments: Initially unable to see bilat tm d/t cerumen impaction. Procedure: Provider/curette Nurse/lavage After procedure bilat canal clear and bilat tm normal flap of skin in left ear canal slightly obscures exam. Pulmonary: Effort: Pulmonary effort is normal. No accessory muscle usage or respiratory distress. Neurological: Mental Status: She is alert and oriented to person, place, and time. ASSESSMENT/PLAN: 1. Bilateral impacted cerumen - ICD9: 380.4, ICD10: H61.23 Succesful lavage by nurse and curetage by provider I discussed proper ear hygiene F/u for continued s/s. - AMBULATORY EAR LAVAGE/IRRIGATION Lynne Aparicio APRN.[employer] [facility] Miscellaneous Notes* Telephone Encounter - Ying Pacheco - 09/11/2022 9:58 AM EDT PCP updated in [facility] * Telephone Encounter - King Mullen MD - 09/10/2022 3:06 AM EDT Please contact patient and update PCP as requested-my chart message King Mullen MD documented [facility]09-[facility]22 NotePatient Outreach (INTMMN) CHRISTINA MACIAS ([id number]) 1955 F Date Time Provider Department 08/07/22 KING MULLEN During your visit today, we recorded the following information about you: Allergies As of Date: 08/07/2022 (No Known Allergies) Date Reviewed: 05/15/2022 Reviewed by: Nati Estes LPN - Fully Assessed Visit Diagnosis:Encounter for screening mammogram for breast cancer [Z12.31] Order(s):[facility] SCREENING [[id number]] Order #: [id number] FUTURE Prescriptions as of 08/12/2022 - amLODIPine (NORVASC) 5 mg tablet Take 1 tablet by mouth twice daily. - lisinopril (ZESTRIL, PRINIVIL) 20 mg tablet Take 1 tablet by mouth in the morning and 1 tablet in the evening - metoprolol succinate ER (TOPROL XL) 50 mg 24 hr tablet Take 1 tablet by mouth twice daily. - chlorthalidone (HYGROTON) 25 mg tablet Take 1 tablet by mouth once daily. - cetirizine (ZYRTEC) 10 mg tablet Take 1 tablet by mouth once daily. - calcium, elemental, tab Take 1 tablet by mouth once daily. - Lactobacillus acidophilus (PROBIOTIC) 10 billion cell cap Take once daily - multivitamins(DAILY VITAMIN TAB) Take one(1) tablet daily. - aspirin(BABY ASPIRIN 81 MG CHEWABLE TAB) Take one(1) tablet daily. Meds Comments as of 08/16/2013: Pt states she has albuterol but is not taking due to increase in HR. CM MA Problem List As Of Date 08/07/2022 Noted Resolved Essential hypertension, benign [I10] 03/22/2002 ALLERGIC RHINITIS NEC [J30.89] 11/23/2003 DIVERTICULOSIS OF COLON W/O BLEED [K57.30] TEAR MED MENISC KNEE-CURRENT [WQU4097] 11/14/2005 PES ANSERINUS TENDINITIS [[id number]] 11/14/2005 LOC OSTEOARTH NOS-L/LEG [M17.10] 07/19/2008 Senile cataract, unspecified [H25.9] 01/10/2011 Pain in right foot [M79.671] 07/05/2015 Equinus deformity of foot [M21.6X9] 07/05/2015 Chest pain [R07.9] 10/14/2017 Carpal tunnel syndrome, right [G56.01] 04/03/2018 Hypertriglyceridemia [E78.1] 01/07/2019 Diverticulitis [K57.92] 03/05/2019 03/06/2019 Secondary hypertension [I15.9] 12/22/2020 Pneumonia due to COVID-19 virus [U07.1, J12.82] 09/18/2021 09/19/2021 Hypokalemia [E87.6] 09/18/2021 09/19/2021 Hyponatremia [E87.1] 09/18/2021 09/19/2021 Encounter Status:Closed by CANDY POWERS on 08/12/22[facility] 07-10-2022 Note Date of Service 07/10/2022 Chief Complaint Right total hip arthroplasty Subjective Patient seen and evaluated while resting in recliner. She states that she was up with therapy this morning and is anxious to head home. Patient denies any fever, chills, cough, shortness of breath, chest pain, abdominal pain, or nausea. Reviewed lab results and vital signs with patient. Patient advised that she appears stable from hospitalist perspective so we will sign-off now and agree with discharge home. All questions answered. Objective Vitals and Measurements T: 36.9 C (Oral) TMIN: 36.4 C (Oral) TMAX: 36.9 C (Oral) HR: 61(Apical) RR: 18 BP: 118/54 SpO2: 95% Intake and Output 7AM Yesterday to 7AM Today Intake and Output (Last 24 hours) Intake Supplement Intake 0.00 Output Urine Count 1.00 Total Summary Total Intake 0.00 Total Output 0.00 Fluid Balance 0.00 Physical Exam General: No acute distress. Patient is alert and appropriate. Skin: No rash. Skin is warm, dry. Right hip surgical dressing is dry and intact. HEENT: Head is normocephalic, atraumatic. Pupils are equal, round and reactive. Mouth is without lesion. Nose without septal deviation. Neck: Supple. No lymphadenopathy, thyromegaly. Lungs: Bilaterally clear but diminished without crepitation or wheeze. Unlabored. Heart: Heart is regular rhythm, S1, S2. No murmurs, gallops or rubs. Abdomen: Abdomen is soft, nontender. Bowels sounds present in all quadrants. Extremities: No clubbing, cyanosis, or edema. Peripheral pulses palpable. No calf tenderness. Neurological: Patient is awake and alert to person, place and time. Following simple commands, moving all extremities. Weight Dosing Weight: 90.9 kg (07/09/22) Dosing Weight: 90.9 kg (07/09/22) Medications No qualifying data available Lab Results 07/10 05:14 WBC: 15.1 H Hgb: 12.0 Hct: 35.0 L Platelet: 196 Neutrophil %: 81.3 H Glucose Level: 153 H Sodium Level: 135 L Potassium Level: 4.8 BUN: 27 H Creatinine Lvl (s): 1.07 H Imaging Results and Diagnostics XR Fluoro 1-2 Hrs Tech Time Result Date: July 09, 2022 Verified By: CLINICAL STATEMENT: IMPRESSION: XR Hip Right w/Pelvis 4 Views Result Date: July 09, 2022 Verified By: KEY, AUSTEN P DO CLINICAL STATEMENT: IMPRESSION: Postsurgical changes related to total right hip arthroplasty. No evidence ofhardware failure. Assessment/Plan 1. S/P total hip arthroplasty POD#1 Management per the primary team. Patient reports that her pain is well-controlled. 2. HTN (hypertension) Chronic, controlled *SBP goal of 140 or less and avoid hypotension. *Continue current home medications. 3. GERD (gastroesophageal reflux disease) Chronic *Continue PPI as before. *Follow-up with PCP in next 1-2 weeks for post-hospitalization check-up. DVT prophylaxis with SCDs. Code status: Full Code. Labs, diagnostic test and progress notes reviewed as noted in HPI. Plan of care discussed with patient. All questions answered. Patient verbalizes understanding and is agreeable with plan of care. This case was discussed with collaborating physician, Dr. Dandre Rao. Time Spent 35 minutes Digitally Signed by KEVIN CARRASCO on 07/10/2022 05:29 PM [facility]08-31-2022 Nurse Discharge summary Discharged to home with . Escorted to the exit via w/c per Aurea Akbar RN. Left at 1300. [facility]08-31-2022 Note Discharge Instructions Thank you for allowing [facility] to assist you with your healthcare needs. The following is importantdischarge information regarding your hospital visit. Your Care Team [facility] Medicine Your Diagnosis S/P total hip arthroplasty HTN (hypertension) GERD (gastroesophageal reflux disease) What to do next Follow Up Appointments Follow Up with NAT KHALIL PA-C, Orthopedic When 07/22/2022 03:30 PM EDT Why: This is your post-op appointment. Follow-up as scheduled. Where: [facility] [address] [place] [id number] Follow Up with [facility] Physical Therapy When 07/12/2022 09:30 AM EDT Why: This is your first physical therapy appointment. Follow-up as scheduled. Where: [address] [place] [id number]- [id number] The Following Activity and Diet Have Been Ordered for You No qualifying data available. No qualifying data available. The Following Equipment Has Been Ordered for You No qualifying data available. The Following Treatments Have Been Ordered for You Discharge Labs No qualifying data available. Discharge Radiology No qualifying data available. Other Therapies No qualifying data available. Post Acute Orders No qualifying data available. Someone Will Contact You Regarding These Home Health Referrals No home referrals have been ordered for you. No one will call you. Allergies NKA Medications Please ask your primary doctor or pharmacist before taking any other medication not listed, including over the counter drugs, herbal medications, vitamins and or supplements as they may interact withyour home medications. What How Much When Why Instructions Last Dose New acetaminophen (acetaminophen 500 mg oral tablet) 2 tab(s) by mouth Three (3) times a day as needed for as needed for pain not to exceed 3000 mg/ day Pickup at [facility] 07/10/22 9:36am New aspirin (aspirin 81 mg oral delayed release tablet) 1 tab(s) by mouth Two (2) times a day Duration: 30 Days Take 81 mg aspirin twice daily with food for 4 weeks postoperatively for DVT prophylaxis Pickup at [facility] 07/10/22 9:36am New docusate-senna (Senokot S 50 mg-8.6 mg oral tablet) 2 tab(s) by mouth Two (2) times a day Take until first bowel movement, then as needed Pickup at [facility] 07/10/22 9:36am New meloxicam (Mobic 7.5 mg oral tablet) 1 tab(s) by mouth Twice daily with meals Do not take any other nonsteroidal anti-inflammatories while on meloxicam/ Mobic Pickup at [facility] start 07/11/22 New oxyCODONE (oxyCODONE 5 mg oral tablet ( IMMEDIATE release )) See instructions S/P total hip arthroplasty 1-2 tab(s) Oral q4h Pickup at [facility] 07/10/22 9:36am Unchanged amLODIPine (amLODIPine 5 mg oral tablet) 1 tab(s) by mouth Once a day 07/10/22 9:36am Unchanged ascorbic acid (Vitamin C 500 mg oral tablet) 1 tab(s) by mouth Once a day not given in hospital Unchanged bifidobacterium infantis (Align 4 mg oral capsule) 1 cap by mouth Every day PROBIOTIC not given in hospital Unchanged calcium carbonate (calcium (as carbonate) 600 mg oral tablet) 1 tab(s) by mouth Once a day not given in hospital Unchanged cetirizine (Zyrtec 10 mg oral tablet) 1 tab(s) by mouth Once a day not given in hospital Unchanged chlorthalidone (chlorthalidone 25 mg oral tablet) 1 tab(s) by mouth Every day not given in hospital Unchanged cholecalciferol (Vitamin D3) 25 Microgram by mouth Every day not given in hospital Unchanged lisinopril (lisinopril 20 mg oral tablet) 1 tab(s) by mouth Two (2) times a day 07/10/22 9:36am Unchanged metoprolol (Metoprolol Succinate ER 50 mg oral TABLET extended release) 1 tab(s) by mouth Two (2) times a day 07/10/22 9:36am Unchanged multivitamin (Multivitamin) 1 tab(s) by mouth Every day 07/10/22 9:36am Unchanged omeprazole (PriLOSEC OTC 20 mg oral delayed release tablet) 1 tab(s) by mouth Once a day before a meal 07/10/22 6am Pharmacy Information [facility]: [address] [place], [place] [id number] [phone] Please take this list to your next doctor s visit. Bring all medications you take, including over the counter medications, herbals and other supplements with you to your doctor s visit. Patients and families are reminded to discard old lists and to update any records with all medication providers or retail pharmacies. Medication Leaflets aspirin (oral) ( pir in) Arthritis Pain, Aspi-Cor, Aspir-Low, David Plus, Durlaza, Ecotrin, Miniprin, Vazalore What is the most important information I should know about aspirin? Aspirin can cause Deanna's syndrome, a serious and sometimes fatal condition in children. What is aspirin? Aspirin is a salicylate (um-HCA-sr-ate) that is used to treat pain, and reduce fever or inflammation. Aspirin is sometimes used to treat or prevent heart attacks, strokes, and chest pain (angina). Aspirin should be used for these conditions only under the supervision of a doctor. Aspirin may also be used for purposes not listed in this medication guide. What should I discuss with my healthcare provider before taking aspirin? Using aspirin in a child or teenager with flu symptoms or chickenpox can cause a serious or fatal condition called Deanna's syndrome. You should not use aspirin if you are allergic to it, or if you have: a recent history of stomach or intestinal bleeding; a bleeding disorder such as hemophilia; or if you have ever had an asthma attack or severe allergic reaction after taking aspirin or an NSAID (non-steroidal anti-inflammatory drug). Tell your doctor if you have ever had: asthma or seasonal allergies; stomach ulcers; liver disease; kidney disease; a bleeding or blood clotting disorder; gout; or heart disease, high blood pressure, or congestive heart failure. Taking aspirin during late may cause bleeding in the mother or the baby during delivery. Tell your doctor if you are or plan to become . You should not breastfeed while using this medicine. How should I take aspirin? Use exactly as directed on the label, or as prescribed by your doctor. Always follow directions on the medicine label about giving aspirin to a child. Take with food if aspirin upsets your stomach. You must chew the chewable tablet before you swallow it. Do not crush, chew, break, or open an enteric-coated or delayed/extended-release pill. Swallow it whole. Tell your doctor if you have a planned surgery. Store at room temperature away from moisture and heat. Do not use aspirin if you smell a strong vinegar odor in the aspirin bottle. The medicine may no longer be effective. What happens if I miss a dose? Aspirin is used when needed. If you are on a dosing schedule, skip any missed dose. Do not use two doses at one time. What happens if I overdose? Seek emergency medical attention or call the Poison Help line at . Overdose may cause stomach pain, vomiting, diarrhea, vision or hearing problems, fast or slow breathing, or confusion. What should I avoid while taking aspirin? Avoid alcohol. Heavy drinking can increase your risk of stomach bleeding. Avoid taking ibuprofen if you take aspirin to prevent stroke or heart attack. Ibuprofen can make aspirin less effective in protecting your heart and blood vessels. Ask your doctor how far apart your doses should be. Ask a doctor or pharmacist before using other medicines for pain, fever, swelling, or cold/flu symptoms. They may contain ingredients similar to aspirin (such as magnesium salicylate, ibuprofen, ketoprofen, or naproxen). What are the possible side effects of aspirin? Get emergency medical help if you have signs of an allergic reaction: hives; difficult breathing; swelling of your face, lips, tongue, or throat. Stop using aspirin and call your doctor at once if you have: ringing in your ears, confusion, hallucinations, rapid breathing, seizure (convulsions); severe nausea, vomiting, or stomach pain; bloody or tarry stools, coughing up blood or vomit that looks like coffee grounds; fever lasting longer than 3 days; or swelling, or pain lasting longer than 10 days. Common side effects may include: upset stomach, heartburn; drowsiness; or mild headache. This is not a complete list of side effects and others may occur. Call your doctor for medical advice about side effects. You may report side effects to FDA at 5-175-NXB-3002. What other drugs will affect aspirin? Ask your doctor before using aspirin if you take an antidepressant. Taking certain antidepressants with aspirin may cause you to bruise or bleed easily. Ask a doctor or pharmacist before using aspirin with any other medications, especially: a blood thinner (warfarin, Coumadin, Jantoven), or other medication used to prevent blood clots; or other salicylates such as Nuprin Backache Caplet, Kaopectate, KneeRelief, Pamprin Cramp Formula, Pepto-Bismol, Tricosal, Trilisate, and others. This list is not complete. Other drugs may affect aspirin, including prescription and lhmp-zes-zrpuyku medicines, vitamins, and herbal products. Not all possible drug interactions are listed here. Where can I get more information? Your pharmacist can provide more information about aspirin. Remember, keep this and all other medicines out of the reach of children, never share your medicines with others, and use this medication only for the indication prescribed. Every effort has been made to ensure that the information provided by [employer]') is accurate, up-to-date, and complete, but no guarantee is made to that effect. Drug information contained herein may be time sensitive. [employer] information has been compiled for use by healthcare practitioners and consumers in the [place] and therefore [employer] does not warrant that uses outside of the [place] are appropriate, unless specifically indicated otherwise. [employer]'s drug information does not endorse drugs, diagnose patients or recommend therapy. [employer]'s drug information isan informational resource designed to assist licensed healthcare practitioners in caring for their p atients and/or to serve consumers viewing this service as a supplement to, and not a substitute for, the expertise, skill, knowledge and judgment of healthcare practitioners. The absence of a warningfor a given drug or drug combination in no way should be construed to indicate that the drug or drug combination is safe, effective or appropriate for any given patient. [facility] does not assume any responsibility for any aspect of healthcare administered with the aid of information [facility] provides. The information contained herein is not intended to cover all possible uses, directions, precautions, warnings, drug interactions, allergic reactions, or adverse effects. If you have questions about the drugs you are taking, check with your doctor, nurse or pharmacist. Copyright [id number] [facility] [employer]. Version: 16.03. Revision Date: 05/07/2021. docusate and senna (DOK luis f sate and SEN a) Colace 2-in-1, Dok Plus, Evelina-Colace, Senexon-S, Senna Plus, Senna S, Senna-Time S, Senokot S, SenoSol-SS, Stool Softener with Laxative What is the most important information I should know about docusate and senna? Use exactly as directed on the label, or as prescribed by your doctor. What is docusate and senna? Docusate is a stool softener. Senna is a laxative. Docusate and senna is a combination medicine used to treat occasional constipation. Docusate and senna may also be used for purposes not listed in this medication guide. What should I discuss with my healthcare provider before using docusate and senna? You should not use this medicine if you are allergic to docusate or senna, or if you are also taking mineral oil. Ask a doctor or pharmacist if this medicine is safe to use if you have ever had: nausea or vomiting; stomach pain; a sudden change in bowel habits that lasts for 2 weeks or longer; or an intestinal disorder such as Crohn's disease or ulcerative colitis. Ask a doctor before using this medicine if you are or . Do not give this medicine to a child younger than 2 years old without medical advice. How should I use docusate and senna? Use exactly as directed on the label, or as prescribed by your doctor. Take docusate and senna with a full glass of water. It may be best to take this medicine at night or at bedtime. Docusate and senna should cause you tohave a bowel movement within 6 to 12 hours. Do not take docusate and senna for longer than 7 days in a row, unless your doctor tells you to. Call your doctor if your constipation does not improve or if it gets worse after taking docusate and senna. Store at room temperature away from moisture and heat. What happens if I miss a dose? Since docusate and senna is used when needed, you may not be on a dosing schedule. Skip any missed dose if it's almost time for your next dose. Do not use two doses at one time. What happens if I overdose? Seek emergency medical attention or call the Poison Help line at . Overdose symptoms may include nausea, vomiting, stomach pain, or diarrhea. What should I avoid while using docusate and senna? Ask a doctor or pharmacist before using any other laxative or other stool softener that may containingredients similar to docusate or senna. What are the possible side effects of docusate and senna? Get emergency medical help if you have signs of an allergic reaction: hives; difficulty breathing; swelling of your face, lips, tongue, or throat. Stop using docusate and senna and call your doctor at once if you have: rectal bleeding; severe stomach pain, nausea, vomiting; or no bowel movement. Common side effects may include: gas, bloating; diarrhea; or mild nausea. This is not a complete list of side effects and others may occur. Call your doctor for medical advice about side effects. You may report side effects to FDA at 3-533-HQS-3992. What other drugs will affect docusate and senna? Other drugs may affect docusate and senna, including prescription and ieaw-osa-kcuvxhu medicines, vitamins, and herbal products. Tell your doctor about all your current medicines and any medicine youstart or stop using. Where can I get more information? Your pharmacist can provide more information about docusate and senna. Remember, keep this and all other medicines out of the reach of children, never share your medicines with others, and use this medication only for the indication prescribed. Every effort has been made to ensure that the information provided by [employer]') is accurate, up-to-date, and complete, but no guarantee is made to that effect. Drug information contained herein may be time sensitive. [employer] information has been compiled for use by healthcare practitioners and consumers in the [place] and therefore [employer] does not warrant that uses outside of the [place] are appropriate, unless specifically indicated otherwise. [employer] drug information does not endorse drugs, diagnose patients or recommend therapy. [employer] drug information isan informational resource designed to assist licensed healthcare practitioners in caring for their p atients and/or to serve consumers viewing this service as a supplement to, and not a substitute for, the expertise, skill, knowledge and judgment of healthcare practitioners. The absence of a warningfor a given drug or drug combination in no way should be construed to indicate that the drug or drug combination is safe, effective or appropriate for any given patient. [employer] does not assume any responsibility for any aspect of healthcare administered with the aid of information [employer] provides. The information contained herein is not intended to cover all possible uses, directions, precautions, warnings, drug interactions, allergic reactions, or adverse effects. If you have questions about the drugs you are taking, check with your doctor, nurse or pharmacist. Copyright [id number] [employer]. Version: 3.02. Revision Date: 01/24/2021. oxycodone (ox i KOE done) Oxaydo, OxyCONTIN, Oxyfast, OxyIR, Roxicodone, Xtampza ER What is the most important information I should know about oxycodone? MISUSE OF OPIOID MEDICINE CAN CAUSE ADDICTION, OVERDOSE, OR . Keep the medication in a place where others cannot get to it. Taking opioid medicine during may cause life-threatening withdrawal symptoms in the . Fatal side effects can occur if you use opioid medicine with alcohol, or with other drugs that cause drowsiness or slow your breathing. What is oxycodone? Oxycodone is an opioid pain medication used to treat moderate to severe pain. The extended-release form of oxycodone is for nqhakd-imu-jjabh treatment of pain and should not be used on an as-needed basis for pain. Oxycodone may also be used for purposes not listed in this medication guide. What should I discuss with my healthcare provider before using oxycodone? You should not use oxycodone if you are allergic to it, or if you have: severe asthma or breathing problems; or a blockage in your stomach or intestines. You should not use oxycodone unless you are already using a similar opioid medicine and are tolerant to it. Most brands of oxycodone are not approved for use in people under 18. OxyContin should not be givento a child younger than 11 years old. Tell your doctor if you have ever had: breathing problems, sleep apnea; a head injury, or seizures; drug or alcohol addiction, or mental illness; liver or kidney disease; urination problems; or problems with your gallbladder, pancreas, or thyroid. If you use opioid medicine while you are , your baby could become dependent on the drug. This can cause life-threatening withdrawal symptoms in the baby after it is born. Babies born dependent on opioids may need medical treatment for several weeks. Ask a doctor before using opioid medicine if you are . Tell your doctor if you notice severe drowsiness or slow breathing in the nursing baby. How should I use oxycodone? Follow the directions on your prescription label and read all medication guides. Never use oxycodone in larger amounts, or for longer than prescribed. Tell your doctor if you feel an increased urge to take more of this medicine. Never share opioid medicine with another person, especially someone with a history of drug abuse oraddiction. MISUSE CAN CAUSE ADDICTION, OVERDOSE, OR . Keep the medication in a place where others cannot get to it. Selling or giving away opioid medicine is against the law. Stop taking all other wbixhs-xxo-uusfz opioid pain medicines when you start taking extended-releaseoxycodone. Take oxycodone with food. Swallow the capsule or tablet whole to avoid exposure to a potentially fatal overdose. Do not crush, chew, break, open, or dissolve. If you cannot swallow a capsule whole, open it and sprinkle the medicine into a spoonful of puddingor applesauce. Swallow the mixture right away without chewing. Do not save it for later use. Never crush or break an oxycodone pill to inhale the powder or mix it into a liquid to inject the drug into your vein. This can cause in . Measure liquid medicine carefully. Use the dosing syringe provided, or use a medicine dose-measuring device (not a kitchen spoon). You should not stop using oxycodone suddenly. Follow your doctor's instructions about tapering yourdose. Store at room temperature, away from heat, moisture, and light. Keep track of your medicine. Oxycodone is a drug of abuse and you should be aware if anyone is using your medicine improperly or without a prescription. Do not keep leftover opioid medication. Just one dose can cause in someone using this medicine accidentally or improperly. Ask your pharmacist where to locate a drug take-back disposal program.If there is no take-back program, flush the unused medicine down the toilet. What happens if I miss a dose? Since oxycodone is used for pain, you are not likely to miss a dose. Skip any missed dose if it is almost time for your next dose. Do not use two doses at one time. What happens if I overdose? Seek emergency medical attention or call the Poison Help line at . An opioid overdosecan be fatal, especially in a child or other person using the medicine without a prescription. Overdose symptoms may include severe drowsiness, pinpoint pupils, slow breathing, or no breathing. Your doctor may recommend you get naloxone (a medicine to reverse an opioid overdose) and keep it with you at all times. A person caring for you can give the naloxone if you stop breathing or don't wake up. Your caregiver must still get emergency medical help and may need to perform CPR (cardiopulmonary resuscitation) on you while waiting for help to arrive. Anyone can buy naloxone from a pharmacy or local health department. Make sure any person caring foryou knows where you keep naloxone and how to use it. What should I avoid while using oxycodone? Do not drink alcohol. Dangerous side effects or could occur. Avoid driving or operating machinery until you know how oxycodone will affect you. Dizziness or severe drowsiness can cause falls or other accidents. Avoid medication errors. Always check the brand and strength of oxycodone you get from the pharmacy. What are the possible side effects of oxycodone? Get emergency medical help if you have signs of an allergic reaction: hives; difficult breathing; swelling of your face, lips, tongue, or throat. Opioid medicine can slow or stop your breathing, and may occur. A person caring for you should give naloxone and/or seek emergency medical attention if you have slow breathing with long pauses,blue colored lips, or if you are hard to wake up. Call your doctor at once if you have: noisy breathing, sighing, shallow breathing, breathing that stops during sleep; a slow heart rate or weak pulse; a light-headed feeling, like you might pass out; confusion, unusual thoughts or behavior; seizure (convulsions); low cortisol levels-- nausea, vomiting, loss of appetite, dizziness, worsening tiredness or weakness; or high levels of serotonin in the body--agitation, hallucinations, fever, sweating, shivering, fast heart rate, muscle stiffness, twitching, loss of coordination, nausea, vomiting, diarrhea. Serious breathing problems may be more likely in older adults and in those who are debilitated or have wasting syndrome or chronic breathing disorders. Common side effects may include: drowsiness, headache, dizziness, tiredness; or constipation, stomach pain, nausea, vomiting. This is not a complete list of side effects and others may occur. Call your doctor for medical advice about side effects. You may report side effects to FDA at 0-515-FHV-1041. What other drugs will affect oxycodone? You may have breathing problems or withdrawal symptoms if you start or stop taking certain other medicines. Tell your doctor if you also use an antibiotic, antifungal medication, heart or blood pressure medication, seizure medication, or medicine to treat HIV or hepatitis C. Opioid medication can interact with many other drugs and cause dangerous side effects or . Be sure your doctor knows if you also use: cold or allergy medicines, bronchodilator asthma/COPD medication, or a diuretic ('water pill'); medicines for motion sickness, irritable bowel syndrome, or overactive bladder; other opioids--opioid pain medicine or prescription cough medicine; a sedative like Valium--diazepam, alprazolam, lorazepam, Xanax, Klonopin, Versed, and others; drugs that make you sleepy or slow your breathing--a sleeping pill, muscle relaxer, medicine to treat mood disorders or mental illness; or drugs that affect serotonin levels in your body--a stimulant, or medicine for depression, Parkinson's disease, migraine headaches, serious infections, or nausea and vomiting. This list is not complete and many other drugs may affect oxycodone. This includes prescription rjmeqld-scb-rfinksi medicines, vitamins, and herbal products. Not all possible drug interactions are listed here. Where can I get more information? Your pharmacist can provide more information about oxycodone. Remember, keep this and all other medicines out of the reach of children, never share your medicines with others, and use this medication only for the indication prescribed. Every effort has been made to ensure that the information provided by [employer]. ('[employer]') is accurate, up-to-date, and complete, but no guarantee is made to that effect. Drug information contained herein may be time sensitive. [employer] information has been compiled for use by healthcare practitioners and consumers in the [place] and therefore [employer] does not warrant that uses outside of the [place] are appropriate, unless specifically indicated otherwise. [employer]ates drug information does not endorse drugs, diagnose patients or recommend therapy. [employer]-locates drug information isan informational resource designed to assist licensed healthcare practitioners in caring for their p atients and/or to serve consumers viewing this service as a supplement to, and not a substitute for, the expertise, skill, knowledge and judgment of healthcare practitioners. The absence of a warningfor a given drug or drug combination in no way should be construed to indicate that the drug or drug combination is safe, effective or appropriate for any given patient. [employer] does not assume any responsibility for any aspect of healthcare administered with the aid of information Play[employer] provides. The information contained herein is not intended to cover all possible uses, directions, precautions, warnings, drug interactions, allergic reactions, or adverse effects. If you have questions about the drugs you are taking, check with your doctor, nurse or pharmacist. Copyright 1869-3789 [employer]. Version: 14.02. Revision Date: 12/07/2020. meloxicam (oral/injection) (carlos OKS i clinton) Nahomi, Mobadrci, Qmiiz ODT, Vivlodex What is the most important information I should know about meloxicam? Meloxicam can increase your risk of fatal heart attack or stroke. Do not use this medicine just before or after heart bypass surgery (coronary artery bypass graft, or CABG). Meloxicam may also cause stomach or intestinal bleeding, which can be fatal. What is meloxicam? Meloxicam is a nonsteroidal anti-inflammatory drug (NSAID) that is used to treat osteoarthritis or rheumatoid arthritis in adults. Meloxicam is also used to treat juvenile rheumatoid arthritis in children who are at least 2 years old. The Anjeso brand of meloxicam is used to treat moderate to severe pain in adults. Vivlodex is for use only in adults. Qmiiz is for adults and children weighing at least 132 pounds (60 kilograms). Meloxicam may also be used for purposes not listed in this medication guide. What should I discuss with my healthcare provider before taking meloxicam? Meloxicam can increase your risk of fatal heart attack or stroke, even if you don't have any risk factors. Do not use this medicine just before or after heart bypass surgery (coronary artery bypass graft, or CABG). Meloxicam may also cause stomach or intestinal bleeding, which can be fatal. These conditions can occur without warning while you are using meloxicam, especially in older adults. You should not use meloxicam if you are allergic to it, or if you have ever had an asthma attack orsevere allergic reaction after taking aspirin or an NSAID. You should not take meloxicam disintegrating tablets (Qmiiz ODT) if you have phenylketonuria (PKU).This form of meloxicam contains phenylalanine. Tell your doctor if you have ever had: heart disease, high blood pressure, high cholesterol, diabetes, or if you smoke; a heart attack, stroke, or blood clot; ulcers or bleeding in your stomach; asthma; kidney disease (or if you are on dialysis); liver disease; or fluid retention. If you are , you should not take meloxicam unless your doctor tells you to. Taking an NSAIDduring the last 20 weeks of can cause serious heart or kidney problems in the unborn babyand possible complications with your . Meloxicam may cause a delay in ovulation (the release of an egg from an ovary). You should not takemeloxicam if you are undergoing fertility treatment, or are otherwise trying to get . It may not be safe to breastfeed while using this medicine. Ask your doctor about any risk. Meloxicam is not approved for use by anyone younger than 2 years old. How should I take meloxicam? Follow all directions on your prescription label and read all medication guides. Use the lowest dose that is effective in treating your condition. Meloxicam oral is taken by mouth. Meloxicam injection is given as an infusion into a vein. A healthcare provider will give you this injection. You may take meloxicam oral with or without food. Remove an orally disintegrating tablet from the package only when you are ready to take the medicine. Place the tablet in your mouth and allow it to dissolve, without chewing. Swallow several times as the tablet dissolves. Your dose needs may change if you switch to a different brand, strength, or form of this medicine. Avoid medication errors by using only the form and strength your doctor prescribes. Meloxicam doses are based on weight (especially in children and teenagers). Your dose needs may change if you gain or lose weight. If you use this medicine long-term, you may need frequent medical tests. Store meloxicam tablets or capsules at room temperature, away from moisture and heat. Keep the bottle tightly closed when not in use. What happens if I miss a dose? Take the medicine as soon as you can, but skip the missed dose if it is almost time for your next dose. Do not take two doses at one time. What happens if I overdose? Seek emergency medical attention or call the Poison Help line at . What should I avoid while taking meloxicam? Avoid alcohol. Heavy drinking can increase your risk of stomach bleeding. Avoid taking aspirin while you are taking meloxicam, unless your doctor tells you to. Ask a doctor or pharmacist before using other medicines for pain, fever, swelling, or cold/flu symptoms. They may contain ingredients similar to meloxicam (such as aspirin, ibuprofen, ketoprofen, or naproxen). What are the possible side effects of meloxicam? Get emergency medical help if you have signs of an allergic reaction (hives, difficult breathing, swelling in your face or throat) or a severe skin reaction (fever, sore throat, burning eyes, skin pain, red or purple skin rash with blistering and peeling). Get emergency medical help if you have signs of a heart attack or stroke: chest pain spreading to your jaw or shoulder, sudden numbness or weakness on one side of the body, slurred speech, leg swelling, feeling short of breath. Stop using meloxicam and call your doctor at once if you have: the first sign of any skin rash, no matter how mild; shortness of breath (even with mild exertion); swelling or rapid weight gain; signs of stomach bleeding--bloody or tarry stools, coughing up blood or vomit that looks like coffee grounds; liver problems--nausea, upper stomach pain, itching, tired feeling, flu-like symptoms, loss of appetite, dark urine, ling-colored stools, jaundice (yellowing of the skin or eyes); low red blood cells (anemia)--pale skin, unusual tiredness, feeling light- headed, cold hands and feet; or kidney problems--little or no urination, swelling in your feet or ankles, feeling tired or short ofbreath. Common side effects may include: stomach pain, nausea, vomiting, heartburn; diarrhea, constipation, gas; dizziness; or cold symptoms, flu symptoms. This is not a complete list of side effects and others may occur. Call your doctor for medical advice about side effects. You may report side effects to FDA at 8-519-TIQ-7702. What other drugs will affect meloxicam? Ask your doctor before using meloxicam if you take an antidepressant. Taking certain antidepressants with an NSAID may cause you to bruise or bleed easily. Tell your doctor about all your other medicines, especially: cyclosporine; lithium; methotrexate; pemetrexed; sodium polystyrene sulfonate (Kayexalate); a blood thinner (warfarin, Coumadin, Jantoven); heart or blood pressure medication, including a diuretic or 'water pill'; or steroid medicine (such as prednisone). This list is not complete. Other drugs may affect meloxicam, including prescription and taug-eje-xvnwfme medicines, vitamins, and herbal products. Not all possible drug interactions are listed here. Where can I get more information? Your pharmacist can provide more information about meloxicam. Remember, keep this and all other medicines out of the reach of children, never share your medicines with others, and use this medication only for the indication prescribed. Every effort has been made to ensure that the information provided by [employer]. ('[employer]') is accurate, up-to-date, and complete, but no guarantee is made to that effect. Drug information contained herein may be time sensitive. [employer] information has been compiled for use by healthcare practitioners and consumers in the [place] and therefore [employer] does not warrant that uses outside of the [place] are appropriate, unless specifically indicated otherwise. [employer]'s drug information does not endorse drugs, diagnose patients or recommend therapy. W-locates drug information isan informational resource designed to assist licensed healthcare practitioners in caring for their p atients and/or to serve consumers viewing this service as a supplement to, and not a substitute for, the expertise, skill, knowledge and judgment of healthcare practitioners. The absence of a warningfor a given drug or drug combination in no way should be construed to indicate that the drug or drug combination is safe, effective or appropriate for any given patient. [employer] does not assume any responsibility for any aspect of healthcare administered with the aid of information [employer] provides. The information contained herein is not intended to cover all possible uses, directions, precautions, warnings, drug interactions, allergic reactions, or adverse effects. If you have questions about the drugs you are taking, check with your doctor, nurse or pharmacist. Copyright 5595-9027 [facility] [employer]. Version: 14.01. Revision Date: 09/12/2020. Education Materials [facility] Post-operative Instructions PLEASE FOLLOW [facility] POST-OP INSTRUCTIONS GIVEN WATCH FOR SIGNS OF INFECTION: call the office ([phone]) if experencing any of the following: (Usually appears 36-48 hours after surgery) Increased temperature (101 degrees Fahrenheit or higher) Redness or swelling Increased uncontrolled pain Foul odor or drainage Calf discomfort Significant swelling Or if having any chest pain, shortness of breath, or difficulty breathing or swallowing call the office or go the nearest Emergency Room. If you have any questions, please call your doctor at the number listed on your follow up instructions. Form: 338A (20006) R: 03/16 Additional Information VACCINATE! IT SAVES LIVES! Members of the community who have not yet received the COVID-19 vaccine and would like to receive it can visit one of [facility] vaccine clinics. There are many vaccine clinic locations within the [facility]. For locations and available times, please visit [email or web address] It is important to note that some COVID mobile vaccine clinics are held outdoors and may be canceled in rainy or stormy conditions. To learn more about pediatric vaccinations (ages 5-11), we invite you to visit the [facility] webpage. [email or web address] [email or web address] learn more about the COVID-19 vaccine, we invite you to visit the [facility] website for a list of frequently asked questions. [email or web address] [facility] Patient Portal Access Instructions: Stay connected with your healthcare team and access your personal medical information anytime with the [facility] Patient Portal.If you would like a full copy of your medical records, please contact the [facility] Medical Records Department, Friday through Friday between 8a.m. and 4:30p.m. Please follow the directions below to access the portal: 1.Access the email account you provided upon registration to the [facility].2.Look for an invitation email from [facility].3.Open the email and access the invitation link: Accept Invitation to [facility].Fill in the required stafford to create your account. Sign into www.AddIn Social with your username and password that you created in the above steps to stay up to date. You can then view a summary of results, a summary of your visits, and the ability to download your summaries to your computer or send the information securely to a physician. Remember that your healthcare information is confidential, so carefully consider who you will allow to register on the [facility] Patient Portal for access to your information. You can also access the [facility] Patient Portal on the morphCARD. Simply click on Health Records under [employer] and then click on the db4objects logo. HOW TO SAFELY DISPOSE OF PRESCRIPTION MEDICATIONS Please use one of the following methods to safely dispose of your unused medications. 1.Use a drug disposal kit: the drug disposal pouch allows you to safely discard your old and unuseddrugs. Ask your nurse to give you one when you are discharged.2.Visit a local take-back location: Many local pharmacies and police departments have programs that collect old and unwanted prescriptiondrugs. Call your local pharmacy or go to [email or web address] to find one close to you.3.Make use of household items: Use cat litter or old coffee grounds to dispose medications if other options arenot available. Mix your drugs with these household products, seal them in an airtight container andthrow it into the garbage. Call [place] EPA: [phone] to be sure your drugs can be disposed of in this way. Some medicines may require a different approach.4.Never flush your medications down the toilet. IF YOU HAVE BEEN PRESCRIBED AN OPIOID FOR PAIN If you have been prescribed an opioid (such as hydrocodone, oxycodone or morphine), it is critical to understand the possible side effects and risks of opioid pain medications. Even when taken as directed, opioids can have several side effects including: Tolerance, meaning you might need to take more of a medication for the same pain relief. Nausea, vomiting and/or constipation. Sleepiness, dizziness, dry mouth, confusion, depression or itching. Physical dependence, meaning you have withdrawal symptoms when a medication is stopped, can develop within a few days. KNOW YOUR RESPONSIBILITIES It is important to know exactly how much and how often to take the opioid pain medications you are prescribed. Never take opioids in higher amounts or more often than prescribed. Do not combine opioids wit (more content not included)... [facility] Hospital Discharge instructions Patient Education 07/10/2022 07:49:56 5 - [facility] Post-op Instruction 06/2017 (42270) [facility] Post-operative Instructions PLEASE FOLLOW [facility] POST-OP INSTRUCTIONS GIVEN WATCH FOR SIGNS OF INFECTION: call the office ([phone]) if experencing any of the following: (Usually appears 36-48 hours after surgery) Increased temperature (101 degrees Fahrenheit or higher) Redness or swelling Increased uncontrolled pain Foul odor or drainage Calf discomfort Significant swelling Or if having any chest pain, shortness of breath, or difficulty breathing or swallowing call the office or go the nearest Emergency Room. If you have any questions, please call your doctor at the number listed on your follow up instructions. Form: 338A ([id number]) R: 03/16 Follow Up Care 05/22/2022 07:41:52 With:[facility] Address: [address] [place] [phone] When:07/12/2022 09:30:00 Comments:This is your first physical therapy appointment. Follow-up as scheduled. With:NAT KHALIL PA-C, Orthopedic Address: [facility] [address] [place] [address] [place] [address]- When:07/22/2022 15:30:00 Comments:This is your post-op appointment. Follow-up as scheduled. [facility] 08-31-2022 Note Date of Service July 10, 2022 Subjective The patient was sitting in bed upon examination. Patient denies any chest pain, shortness of breath, dizziness, lightheadedness, nausea or vomiting, or calf pain. No adverse overnight events. Pain has been controlled on medications. Patient overall has been doing well and has been up and walking. Pain is been well controlled. She does wish to go home today. Objective Vitals and Measurements T: 36.4 C (Oral) TMIN: 36.3 C (Temporal Artery) TMAX: 36.7 C (Oral) HR: 71 RR: 18 BP: 119/71 SpO2: 96% HT: 167.6 cm WT: 90.9 kg BMI: 32.36 Intake and Output 7AM Yesterday to 7AM Today Intake and Output (Last 24 hours) Intake Administration Information 1170.22 Supplement Intake 0.00 Output Intra-Op EBL 100.00 Urine Count 1.00 Total Summary Total Intake 1170.22 Total Output 100.00 Fluid Balance 1070.22 Physical Exam Vital signs stable, afebrile Right hip is soft and supple PATTIE hose and SCDs are in place bilaterally Patient is able to plantarflex and dorsiflex actively Sensation is intact to saphenous, sural, superficial and deep peroneal, and tibial distribution Dressing is clean dry and intact Negative signs and symptoms of DVT, negative Homans bilaterally Weight Dosing Weight: 90.9 kg (07/09/22) Dosing Weight: 90.9 kg (07/09/22) Medications Medications (25) Active Scheduled: (14) acetaminophen 500 mg Tablet 1,000 mg 2 tab(s), Oral, q8h amLODIPine 5 mg tablet 5 mg 1 tab(s), Oral, qDay aspirin 81 mg Chewable 81 mg 1 tab(s), Oral, BIDM bisacodyl 5 mg EC tablet 10 mg 2 tab(s), Oral, Once docusate sodium 100 mg Capsule 100 mg 1 cap(s), Oral, BID docusate-senna (Senokot S) 50 mg-8.6 mg Tablet 2 tab(s), Oral, BID famotidine 20 mg tablet 20 mg 1 tab(s), Oral, qDay lisinopril 20 mg tablet 20 mg 1 tab(s), Oral, BID magnesium hydroxide 8% Suspension 30 mL UD 30 mL, Oral, Daily meloxicam 7.5 mg tablet 7.5 mg 1 tab(s), Oral, BIDM metoprolol succinate 50 mg ER tablet 50 mg 1 tab(s), Oral, BID multivitamin (Myadec) with minerals Therapeutic Multiple Vitamins with Minerals Tablet 1 tab(s), Oral, qDayM ondansetron 2 mg/ 1 mL 2 mL INJ 4 mg 2 mL, IV Push, q8h pantoprazole 20 mg EC tablet 20 mg 1 tab(s), Oral, qDayAC Continuous: (1) Lactated Ringers 1000 mL 1,000 mL, Intravenous, 20 mL/hr PRN: (10) acetaminophen 325 mg Tablet 650 mg 2 tab(s), Oral, q4h diphenhydramine 25 mg tablet 25 mg 1 tab(s), Oral, q6h diphenhyDRAMINE 50 mg/mL (1 mL) INJ 25 mg 0.5 mL, IV Push, q6h ketorolac 30 mg/mL (1 mL) vial 15 mg 0.5 mL, IV Push, q6h morphine 4 mg/mL 1mL INJ 2 mg 0.5 mL, IV Push, q1h ondansetron 2 mg/ 1 mL 2 mL INJ 4 mg 2 mL, IV Push, q8h oxycodone 5 mg tablet (immediate release) 5 mg 1 tab(s), Oral, q4h oxycodone 5 mg tablet (immediate release) 10 mg 2 tab(s), Oral, q4h scopolamine 1.5 mg (1 mg / 72 hours patch) 1 patch(es), Transdermal, q72h sodium biphosphate-sodium phosphate 19 gm-7 gm Enema 133 mL, Rectal, qDay Lab Results 07/10 05:14 WBC: 15.1 H Hgb: 12.0 Hct: 35.0 L Platelet: 196 Neutrophil %: 81.3 H Glucose Level: 153 H Sodium Level: 135 L Potassium Level: 4.8 BUN: 27 H Creatinine Lvl (s): 1.07 H EKG No qualifying data available. Assessment/Plan 1. S/P total hip arthroplasty 1. Status post right direct anterior total hip arthroplasty postop day #1 2. Continue pain medications: Tylenol, meloxicam, oxycodone. Do not take any other nonsteroidal anti-inflammatories while on meloxicam/Mobic 3. DVT prophylaxis: Take 81 mg aspirin twice daily with food for 4 weeks postoperatively for DVT prophylaxis 4. Physical therapy: Weightbearing as tolerated with walker 5. H & H: 12.0/35.0, asymptomatic. Postoperative anemia secondary to acute blood loss from surgery without intraoperative complications. 6. Reactive leukocytosis: Currently 15.1, afebrile. Patient did receive Decadron intraoperatively 7. Encouraged incentive spirometry 8. Continue postoperative medical management per medicine 9. Disposition: Plan will be for probable discharge home today as long as patient is medically stable, tolerates physical therapy, and pain well controlled. She would like her prescriptions [employer] [facility] [employer] in [facility]. She has outpatient physical therapy established. She will follow-up per postop instructions. Patient will contact her office upon discharge with any concerns or questions. I have reviewed the [place] Automated Rx Reporting System (OARRS) report for this patient for refill pattern and other prescriber involvement as part of the appropriate surveillance for the provision ofacute and chronic controlled medications. The report was requested and reviewed on the date of thisentry, and was considered in the prescribing process This dictation was created using voice recognition software. Phonetic and/or grammatical errors mayexist. 2. HTN (hypertension) 3. GERD (gastroesophageal reflux disease) Digitally Signed by NAT KHALIL PA-C on 07/10/2022 07:49 AM [facility]08-30-2022 Note ORIGINAL Images acquired, not reported on this accession number. [facility]08-30-2022 Note ORIGINAL Images acquired, not reported on this accession number.[facility]08-30-2022 Nurse Discharge summary 06-29-22 10:10 Umair Carpio notified of pt being sent to med-surg unit on continuous pulse ox overnightrelated to the administration of Demerol 25mg. Uamir is agreeable. Pt sent to room 236 under observation status. Merrynel Esquivel aware of continuous pulse ox over night and gives verbal understanding. Glen Becker RN . [facility]08-30-2022 Note ORIGINAL EXAMINATION: ONE XRAY VIEW OF THE PELVIS AND TWO XRAY VIEWS RIGHT HIP 07/09/2022 9:36 am COMPARISON: None. HISTORY: ORDERING SYSTEM PROVIDED HISTORY: Reason for Exam: Status Post Arthroplasty FINDINGS: Postsurgical changes related to total right hip arthroplasty. The acetabular and femoral components are in normal alignment. No evidence of hardware failure. Small overlying soft tissue emphysema is probably postsurgical. Otherwise no acute fracture or dislocation. Left femoral head is seated over its acetabulum. Pelvic ring appears intact. Mild multifocal enthesopathy. Degenerative changes of lumbosacral spine and left hip. IMPRESSION: Postsurgical changes related to total right hip arthroplasty. No evidence of hardware failure. Interpreted by: Austen Key Preliminary Report By: Austen Key Electronically signed By Austen Key Dictated Date: 07/09/2022 9:50:34 AM Prelim Date: 07/09/2022 9:52:04 AM Sign Date: 07/09/2022 9:52:04 AM Ordering Provider: GABRIELA SUTHERLAND [facility]08-30-2022 Note ORIGINAL EXAMINATION: ONE XRAY VIEW OF THE PELVIS AND TWO XRAY VIEWS RIGHT HIP 07/09/2022 9:36 am COMPARISON: None. HISTORY: ORDERING SYSTEM PROVIDED HISTORY: Reason for Exam: Status Post Arthroplasty FINDINGS: Postsurgical changes related to total right hip arthroplasty. The acetabular and femoral components are in normal alignment. No evidence of hardware failure. Small overlying soft tissue emphysema is probably postsurgical. Otherwise no acute fracture or dislocation. Left femoral head is seated over its acetabulum. Pelvic ring appears intact. Mild multifocal enthesopathy. Degenerative changes of lumbosacral spine and left hip. IMPRESSION: Postsurgical changes related to total right hip arthroplasty. No evidence of hardware failure. Interpreted by: Austen Key Preliminary Report By: Austen Key Electronically signed By Austen Key Dictated Date: 07/09/2022 9:50:34 AM Prelim Date: 07/09/2022 9:52:04 AM Sign Date: 07/09/2022 9:52:04 AM Ordering Provider: [facility]08-30-2022 Anesthesiology Consult note Patient: CHRISTINA MACIAS Age: 66 years Sex: Female : 1955 Associated Diagnoses: None Author: UMAIR CARPIO Preoperative Information Anesthesia history Patient's history: negative. Family's history: negative. Health Status Allergies: Allergic Reactions (Selected) NKA, Allergies (1) ActiveReaction NKANone Documented Current medications: (Selected) Inpatient Medications Ordered Betadine 10% topical solution: 17.5 mL, mL/hr, Topical (INT), PREOP pharm Decadron: 10 mg, 1 mL, IV Push, AsDirected Kefzol: 2 gram(s), 200 mL/hr, IV Piggyback, PREOP pharm LR 1,000 mL: 20 mL/hr, Intravenous, Stop: 07/09/22 23:59:00 EDT Naropin 100 mg + Toradol 15 mg + EPINEPHrine 1 mg/mL injectable solution 0.3 mg + morphine 2.5 mg...: 100 mg, 20 mL, mL/hr, Other, PREOP pharm Naropin 100 mg + Toradol 15 mg + EPINEPHrine 1 mg/mL injectable solution 0.3 mg + morphine 2.5 mg...: 100 mg, 20 mL, mL/hr, Other, PREOP pharm tranexamic acid 1 g / 100 mL 0.7% NaCl PMX: 1 gram(s), 100 mL, 300 mL/hr, IV Piggyback, AsDirected tranexamic acid 1 g / 100 mL 0.7% NaCl PMX: 1 gram(s), 100 mL, 300 mL/hr, IV Piggyback, AsDirected Documented Medications Documented Align 4 mg oral capsule: 4 mg, 1 cap(s), Oral, Daily, PROBIOTIC, 28 cap(s), 0 Refill(s) Metoprolol Succinate ER 50 mg oral TABLET extended release: 50 mg, 1 tab(s), Oral, BID, 30 tab(s), 0 Refill(s) Multivitamin: 1 tab(s), Oral, Daily, 0 Refill(s) PriLOSEC OTC 20 mg oral delayed release tablet: 20 mg, 1 tab(s), Oral, qDayAC, 0 Refill(s) Vitamin C 500 mg oral tablet: 500 mg, 1 tab(s), Oral, qDay, 30 tab(s), 0 Refill(s) Vitamin D3: 25 mcg, 1 tab(s), Oral, Daily, 0 Refill(s) Zyrtec 10 mg oral tablet: 10 mg, 1 tab(s), Oral, qDay, 30 tab(s), 0 Refill(s) amLODIPine 5 mg oral tablet: 5 mg, 1 tab(s), Oral, qDay, 30 tab(s), 0 Refill(s) calcium (as carbonate) 600 mg oral tablet: 600 mg, 1 tab(s), Oral, qDay, 0 Refill(s) chlorthalidone 25 mg oral tablet: 25 mg, 1 tab(s), Oral, Daily, 30 tab(s), 0 Refill(s) lisinopril 20 mg oral tablet: 20 mg, 1 tab(s), Oral, BID, 0 Refill(s), Medications (8) Active Scheduled: (7) ceFAZolin 2 gram(s), IV Piggyback, PREOP pharm dexamethasone 10 mg/mL (1mL) SDV 10 mg 1 mL, IV Push, AsDirected povidone iodine topical 17.5 mL, Topical (INT), PREOP pharm ropivacaine 100 mg + ketorolac 15 mg + epinephrine 0.3 mg + morphine 2.5 mg 100 mg 20 mL, Other, PREOP pharm ropivacaine 100 mg + ketorolac 15 mg + epinephrine 0.3 mg + morphine 2.5 mg 100 mg 20 mL, Other, PREOP pharm tranexamic acid PMX 1 gram(s) 100 mL, IV Piggyback, AsDirected tranexamic acid PMX 1 gram(s) 100 mL, IV Piggyback, AsDirected Continuous: (1) Lactated Ringers 1,000 mL 1,000 mL, Intravenous, 20 mL/hr PRN: (0) Problem list: Active Problems (3) GERD (gastroesophageal reflux disease) HTN (hypertension) Osteoarthritis Histories Past Medical History: No active or resolved past medical history items have been selected or recorded. Family History: Cancer Mother Heart attack Father Procedure history: Knee ([id number]). Comments: 06/28/2022 9:25 Carmelina Kwan RN bilateral knee scope Cholecystectomy ([id number]). Cataracts ([id number]). Comments: 06/28/2022 9:25 Carmelina Kwan RN bilateral Social History Social & Psychosocial Habits Alcohol 06/28/2022 Use: Current Frequency: 1-2 times per month Substance Abuse 06/28/2022 Use: Never Tobacco 06/28/2022 Tobacco Use: Never (less than 100 in l Home/Environment 06/28/2022 Domestic Concerns None Living situation: Home/Independent Nutrition/Health 07/09/2022 Type of diet: Regular . Physical Examination Vital Signs 07/09/2022 5:49 EDT Temperature Temporal Artery 35.3 DegC Peripheral Pulse Rate 72 bpm Respiratory Rate 14 br/min Systolic Blood Pressure NBP 139 mmHg Diastolic Blood Pressure NBP 73 mmHg Vital Signs(last 24 hrs) Last Charted Resp Rate 14 br/min (JUL 09 05:49) ORK119 mmHg (JUL 09 05:49) DBP73 mmHg (JUL 09 05:49) Measurements from flowsheet : Measurements 07/09/2022 5:49 EDT Height 167.6 cm Height in inches 66 inch(es) Admission Weight 90.9 kg Weight Lbs 200 lb Weight Method Stated [place] Body Weight 59.26 kg Admission Body Mass Index 32.36 m2 Pain assessment: Pain Assessment 07/09/2022 6:16 EDT Primary Pain Intensity 6 07/09/2022 5:49 EDT Primary Pain Location Hip Primary Pain Laterality Right Primary Pain Intensity 6 Acceptable Pain Intensity 6 Primary Pain Quality Aching Pain Scale Type 0-10 Pain scale . General: Alert and oriented. Airway: Mallampati classification: II (soft palate, fauces, uvula visible). Dentition Evaluation: Dentures, lower, Dentures, upper. Respiratory: Lungs are clear to auscultation, Respirations are non-labored. Cardiovascular: Normal rate, Regular rhythm. Neurologic: Alert, Oriented. Review / Management Results review: No qualifying data available , Lab results 07/09/2022 6:24 EDT SN - Preop - CTm Pt in SDS Room 07/09/2022 5:41 SN - Preop - CTm Pt Ready for OR/Proced 07/09/2022 6:24 07/09/2022 6:24 EDT citric acid-sodium citrate Not Done: Not Appropriate at this Time (Not Done) 07/09/2022 6:16 EDT Primary Pain Intensity 6 celecoxib 400 mg mg famotidine 20 mg mg oxyCODONE 10 mg mg Lactated Ringers Injection 1,000 mL mL 07/09/2022 5:49 EDT Height 167.6 cm Height in inches 66 inch(es) Admission Weight 90.9 kg Weight Lbs 200 lb Weight Method Stated [place] Body Weight 59.26 kg Admission Body Mass Index 32.36 m2 Temperature Temporal Artery 35.3 DegC Peripheral Pulse Rate 72 bpm Respiratory Rate 14 br/min Systolic Blood Pressure NBP 139 mmHg Diastolic Blood Pressure NBP 73 mmHg Primary Pain Location Hip Primary Pain Laterality Right Primary Pain Intensity 6 Acceptable Pain Intensity 6 Primary Pain Quality Aching Pain Scale Type 0-10 Pain scale Monitor Alarms On and Limits Checked Nail Bed Color [place] Capillary Refill < 2 seconds Heart Sounds ICU S1S2 Heart Rhythm Regular All Lobes Breath Sounds Clear Oxygen Therapy Room air Oxygen Saturation 97 % Abdomen Description Non-distended, Symmetric, Soft Abdomen Palpation Non-Tender, Soft Bowel Sounds All Quadrants Present Urinary Elimination Voiding, no difficulties Skin Temperature Warm Skin Description [place], Normal for ethnicity Skin Integrity Intact Skin Moisture General Dry IV Present Present Hand Left 07/09/2022 20 gauge Peripheral IV Activity: Insert new site Peripheral IV Dressing Condition: Clean, Dry, Intact Peripheral IV Dressing Activity: Transparent dressing Peripheral IV Line Status/Patency: Flushes easily Peripheral IV Line Care: Secured with tape Peripheral IV Site Condition: No complications Peripheral IV Equipment: Extension set, PRN Adaptor Peripheral IV Number of Attempts: 1 Extremity Movement Equal Characteristics of Speech Clear Level of Consciousness Alert ELLEN Yes Strength All Extremities Strong Affect/Behavior Appropriate, Calm, Cooperative Orientation Oriented x 4 Allergies Yes Surveillance Inspector On Yes Consent Form Signed Yes Patient Dressed In Hospital gown, No undergarments Pre-op Preparation Jewelry removed CHG Preoperative Wash/Wipe Night before procedure, Day of procedure Preop Nasal Swab Povidone-Iodine History & Physical Update On Chart Yes History & Physical On Chart Yes Obstructive Sleep Apnea Assess Completed Yes MRSA/MSSA Protocol Yes Orientation Assessment Oriented x 4 Activity Status ADL Awake Assistive Device None NPO Status Maintained Standard Safety ID band on, Call device within reach, Bed in low position, Wheels locked, Upper/Half-Length side-rails up, Safety level maintained, Non- Slip footwear Demonstrates Correct Call Light Use Yes Allergy Band on and Verified Yes Blood Band on and Verified Yes Patient ID Band on and Verified Yes Implants Verified Yes Pacemaker/AICD Verified Yes Anesthesia Consent Signed Yes Blood Consent Signed Yes Last Fluid Intake 07/08/2022 21:00 Last Food Intake 07/08/2022 21:00 07/09/2022 5:46 EDT Infectious Disease Symptoms Patient states no symptoms Safety Brochure Information Reviewed Unable to complete [facility] Video Viewed No Teaching Evaluation No further teaching needed Admission Note-Nursing Same Day Patient History (Modified) . Assessment and Plan [place] [employer]hesi[employer] (ASA) physical status classification: Class III. Anesthetic Preoperative Plan Anesthetic technique: Spinal. Postoperative pain management: Per surgeon. Risks discussed: nausea, vomiting, hypotension, allergic reaction, serious complications. Informed consent: signed by patient. Digitally Signed by UMAIR CARPIO on 07/09/2022 06:42 AM [facility]07-06-2022 History of Present illness Narrative * King Mullen MD - 05/15/2022 9:07 AM EDT PRE-OPERATIVE EVALUATION SURGEON: Gabriela Culver M.D. PRE-OP DATE: May 15, 2022 SURGERY DATE: To be determined PRE-OPERATIVE DIAGNOSIS: right hip mosteroarthritis PRIMARY PROCEDURE: Right total hip arthroplasty Recommendations provided at the request of the above surgeon and will be communicated via shared electronic record. HPI: Christina Macias is a 66 year old female here for evaluation prior to Right total hip arthroplasty Functional Capacity: Climb a flight of stairs or walk up a hill (5.50 METs) Last NSAID use:Advil 05/15/22 Last ASA use: 05/15/22 Patient takes herbal medications: No ANESTHESIA COMPLICATIONS: no reported complications PMH: PAST MEDICAL HISTORY Diagnosis Date Diverticulosis of colon (without mention of hemorrhage) colonoscopy 08/14 Essential hypertension, benign IBS (irritable bowel syndrome) Pneumonia 08/2014 ACTIVE PROBLEM LIST Essential Hypertension, Benign Allergic Rhinitis Due to Other Allergen Diverticulosis of Colon (Without Mention of Hemorrhage) Tear of Medial Cartilage Or Meniscus of Knee, Current Pes Anserinus Tendinitis Or Bursitis Localized Osteoarthrosis Not Specified Whether Primary Or Secondary, Lower Leg Senile Cataract, Unspecified Pain in Right Foot Equinus Deformity of Foot Chest Pain Carpal Tunnel Syndrome, Right Hypertriglyceridemia Secondary Hypertension PSH: PAST SURGICAL HISTORY Procedure Laterality Date COLONOSCOPY 06/2010 DILATION & CURETTAGE DX&/THER NONOBSTETRIC Dilation & curettage LAPAROSCOPY SURG CHOLECYSTECTOMY 09/2009 PAST SURGICAL HISTORY OF [id number] bilat knee arthroscopic TONSILLECTOMY & ADENOIDECTOMY <AGE 10 Tonsil/adenoidectomy Family History: FAMILY HISTORY Problem Relation Age of Onset Ischemic Heart Disease Father age 46 Cancer Mother lung Ischemic Heart Disease Unknown nephew Social History: Social History Tobacco Use Smoking status: Former Smoker Packs/day: 2.00 Years: 25.00 Pack years: 50.00 Types: Cigarettes Quit date: 11/10/1997 Years since quittin.5 Smokeless tobacco: Never Used Substance Use Topics Alcohol use: Yes Comment: rare Drug use: No ALLERGIES: ALLERGIES No Known Allergies LATEX ALLERGY: No REVIEW OF SYSTEMS: REVIEW OF SYSTEMS GENERAL: No weight loss, malaise or fevers HEENT: Negative for frequent or significant headaches, No changes in hearing or vision, no nose bleeds or other nasal problems NECK: Negative for lumps, goiter, pain and significant neck swelling RESPIRATORY: Negative for cough, hemoptysis, wheezing, COPD, dyspnea or shortness of breath CARDIOVASCULAR: Hypertension GI: No nausea, vomiting, or diarrhea : No history of dysuria, frequency or incontinence 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: Negative for abnormal vaginal bleeding, abnormal vaginal discharge MUSCULOSKELETAL: joint pain or swelling SKIN: Negative for lesions, rash, and itching PSYCH: Negative for sleep disturbance, mood disorder and recent psychosocial stressors HEMATOLOGY/LYMPHOLOGY: Negative for prolonged bleeding, bruising easily or swollen nodes ENDOCRINE: Negative for cold or heat intolerance, polyuria, polydipsia and goiter NEURO: No history of headaches, syncope, paralysis, seizures or tremors OBJECTIVE: BP 128/68 Pulse 65 Wt 90.3 kg (199 lb) SpO2 99% BMI 32.12 kg/m General appearance: well appearing, alert, NAD, Psych: Affect normal, Mood normal, Alert and oriented Head: normocephalic, atraumatic Eyes: Anicteric sclera. PERRL, EOMI Ears: external ears normal, canals clear, TM's normal Nose/Sinuses: Nose normal, Sinuses nontender Oropharynx: MMM, OP normal Neck: Supple, no adenopathy Heart: RRR no murmur, Nml S1/S2. Lungs: lungs clear to auscultation, no wheezing or rhonchi Abdomen: Nontender, Abdomen soft, BS present, No masses Musculoskeletal: tenderness on palpation over right hip Skin: skin without significant rash or concerning lesions Pulses: DP present, Well perfused ASSESSMENT/PLAN: 1. HTN (hypertension), benign - ICD9: 401.1, ICD10: I10 (primary diagnosis) - fair control - Continue current medication(s) - Encouraged dietary sodium restriction/DASH diet - Recommended regular aerobic exercise. - Recommend home blood pressure monitoring, to bring results in on next visit - Discussed need and benefit for weight loss. - Goal of BP <130/80 2. Prediabetes - ICD9: 790.29, ICD10: R73.03 Advised to continue low carbohydrate diet 3. Hyperlipidemia, unspecified hyperlipidemia type - ICD9: 272.4, ICD10: E78.5 - good control - Continue current medication. - Encouraged following a low fat, low cholesterol diet. - Discussed the benefits of regular aerobic exercise and weight loss. 4. Vitamin D deficiency - ICD9: 268.9, ICD10: E55.9 Continue vitamin D supplement 5. Primary osteoarthritis of right hip - ICD9: 715.15, ICD10: M16.11 To be scheduled for surgery 6. Preop examination - ICD9: V72.84, ICD10: Z01.818 - Christina Macias is optimally prepared for surgery,pending pre-op labs King Mullen MD documented in [facility] Nurse Note* Nati Estes LPN - 05/15/2022 8:49 AM EDT Last 4 Encounter BP Readings: Date: BP: 01/06/2022 120/74 11/08/2021 127/58 09/18/2021 114/55 09/11/2021 127/69 Last 4 Encounter Wt Readings: Date: Wt: 01/06/2022 91.9 kg (202 lb 9.6 oz) 11/08/2021 88.9 kg (196 lb) 09/18/2021 83.9 kg (185 lb) 09/11/2021 86.2 kg (190 lb) Last 4 Encounter Ht Readings: Date: Ht: 09/18/2021 167.6 cm (5' 6) 09/11/2021 167.6 cm (5' 6) 01/23/2021 167.6 cm (5' 6) 12/22/2020 167.6 cm (5' 6) documented in this encounterGrant Hospital07-[facility]22 Instructions* Patient Instructions* Nati Estes LPN - 05/15/2022 8:48 AM EDT [employer] [facility] FACTS LAB HOURS: [facility] is open from 7:30am to 6pm M-, open from 7:30am-5pm on Friday and open 8am-12pm on Friday. Closed on Friday [facility] is open from 7:30am to 5pm Friday-Friday, 8am-12pm on Friday, and closed on Friday. Routine Lab Orders 45 days after they are entered. If your lab orders , you may be required to wait in the lab while they are reinstated Future Orders are lab tests to be completed on the EXPECTED date. These orders 45 days after the expected date. Standing Orders are recurring orders with an expiration date. The interval will indicate how often the test should be completed. Fasting Lab means nothing to eat or drink (except water) 10-12 hours before your blood is drawn. CT/MRI/IVP: If you have one of these radiology exams ordered along with blood work, please completethe blood work at least 24 hours prior to the scheduled exam. [facility] -- No appointment needed At the [facility], patients 2 years and older can get walk-in medical attention for common healthproblems including: Cold and flu symptoms Conjunctivitis Ear and throat infections Minor bumps and cuts Seasonal allergies Skin rashes Simple sprains and strains Sinus infections Urinary tract infections Upper respiratory tract infections Locations and Times [facility] - [address] [facility], [facility], [place] - [address] [facility] - Friday through Friday 6 AM - 9 PM - Friday and Friday 8 AM - 4 PM For Express [facility] LOCATIONS, HOURS OF OPERATION and CURRENT WAIT TIMES, visit the following link fordetails. [email or web address] Department [facility] - [address] (off of [facility]), [facility] [phone] Pharmacy Hours: Friday through Friday 8 am to 6 pm Opt in to receive text reminders for your appointments with [facility] specialist today. To opt in, text [phone]. My Chart Schedule My Appointment enables you to view your established primary care provider's open schedule and book an appointment online in real-time. This feature is available in internal medicine, family medicine, or pediatrics at any of our [facility] locations and main campus. documented in this encounterGrant Hospital06-06-2022 History of Present illness Narrative* Flori Miranda - 04/15/2022 3:19 PM EDTSummary: Mammogram Screening [facility] Provider Action/ First time contacting patient. [facility]. Spoke with patient about completing MAMMOGRAM screening and patient refused services at this time. Will close encounter and end navigation. Christina Macias was contacted to discuss their cancer screening needs. Pt identified by name and . Cancer Screening Care Gap Addressed: Breast Cancer Z12.31 Patient does not have appointment scheduled. Order pended. Outreach Outcome: Spoke to patient or caregiver: Patient declined Payer: Insurance: Payor: MEDICARE / Plan: MEDICARE A AND B / Product Type: Medicare / Payor: MEDICARE / Plan: MEDICARE A AND B / Product Type: Medicare / Discussed with: Hazel Hamlin CNP Follow Up Actions: N/A Barriers: REFUSED Results Sent to Provider/Practice: NO Flori Miranda documented in this encounterGrant Hospital04-04-2022 Miscellaneous Notes* Telephone Encounter - Mariella Reddy MD - 02/11/2022 4:13 PM EDT The following approved medication requests have been transmitted electronically. Signed Prescriptions Disp Refills amLODIPine (NORVASC) 5 mg tablet 180 tablet 2 Sig: Take 1 tablet by mouth twice daily. BARTOLOME: No Authorizing Provider: MARIELLA REDDY E lisinopril (ZESTRIL, PRINIVIL) 20 mg tablet 180 tablet 2 Sig: Take 1 tablet by mouth in the morning and 1 tablet in the evening BARTOLOME: No Authorizing Provider: MARIELLA REDDY MD * Telephone Encounter - Britt Oshea MA - 02/11/2022 8:32 AM EDT Patient phones requesting refills as follows: Last office visit: 11/08/2021 Next office visit: Pending Prescriptions Disp Refills AMLODIPINE 5 MG TABLET 180 tablet 2 BARTOLOME: No LISINOPRIL 20 MG TABLET 180 tablet 2 Sig: Take 1 tablet by mouth in the morning and 1 tablet in the evening BARTOLOME: No Please review and advise. Britt Oshea MA documented in this encounterGrant Hospital04-04-2022 Miscellaneous Notes* Telephone Encounter - Mariella Reddy MD - 02/11/2022 3:49 PM EDT The following approved medication requests have been transmitted electronically. Pending Prescriptions: Disp Refills metoprolol succinate ER (TOPROL XL) 50 mg 180 tablet2 24 hr tablet Sig: Take 1 tablet by mouth twice daily. BARTOLOME: No chlorthalidone (HYGROTON) 25 mg tablet 90 tablet 1 Sig: Take 1 tablet by mouth once daily. BARTOLOME: No Mariella Reddy MD * Telephone Encounter - Britt Oshea MA - 02/11/2022 8:27 AM EDT Patient phones requesting refills as follows: Last office visit: 11/08/2021 Next office visit: Visit date not found Pending Prescriptions Disp Refills METOPROLOL SUCCINATE ER 50 MG TABLET,EXTENDED RELEASE 24 HR 180 tablet 2 Sig: Take 1 tablet by mouth twice daily. BARTOLOME: No CHLORTHALIDONE 25 MG TABLET 90 tablet 1 Sig: Take 1 tablet by mouth once daily. BARTOLOME: No Please review and advise. Britt Oshea MA documented in this encounterGrant Hospital11-09-2021 History of Past illness Narrative* Problem Noted Date Resolved Date Pneumonia due to COVID-19 virus 09/18/2021 09/19/2021 Hypokalemia 09/18/2021 09/19/2021 Hyponatremia 09/18/2021 09/19/2021 Diverticulitis 03/05/2019 03/06/2019 Last Assessment & Plan: Assessment: similar presentation to her past episodes. She is feeling a little better already PLAN: Ceftriaxone and flagyl Clear liquid diet IVF for 1L NS GI consulted documented as of this encounter (statuses as of 02/11/2022) [facility] History of Past illness Narrative* Problem Noted Date Resolved Date Pneumonia due to COVID-19 virus 09/18/2021 09/19/2021 Hypokalemia 09/18/2021 09/19/2021 Hyponatremia 09/18/2021 09/19/2021 Diverticulitis 03/05/2019 03/06/2019 Last Assessment & Plan: Assessment: similar presentation to her past episodes. She is feeling a little better already PLAN: Ceftriaxone and flagyl Clear liquid diet IVF for 1L NS GI consulted documented as of this encounter (statuses as of 04/15/2022) [facility] History of Past illness Narrative* Problem Noted Date Resolved Date Pneumonia due to COVID-19 virus 09/18/2021 09/19/2021 Hypokalemia 09/18/2021 09/19/2021 Hyponatremia 09/18/2021 09/19/2021 Diverticulitis 03/05/2019 03/06/2019 Last Assessment & Plan: Assessment: similar presentation to her past episodes. She is feeling a little better already PLAN: Ceftriaxone and flagyl Clear liquid diet IVF for 1L NS GI consulted documented as of this encounter (statuses as of 05/15/2022) [facility] History of Past illness Narrative* Problem Noted Date Resolved Date Pneumonia due to COVID-19 virus 09/18/2021 09/19/2021 Hypokalemia 09/18/2021 09/19/2021 Hyponatremia 09/18/2021 09/19/2021 Diverticulitis 03/05/2019 03/06/2019 Last Assessment & Plan: Assessment: similar presentation to her past episodes. She is feeling a little better already PLAN: Ceftriaxone and flagyl Clear liquid diet IVF for 1L NS GI consulted documented as of this encounter (statuses as of 09/11/2022) [facility] History of Past illness Narrative* Problem Noted Date Resolved Date Pneumonia due to COVID-19 virus 09/18/2021 09/19/2021 Hypokalemia 09/18/2021 09/19/2021 Hyponatremia 09/18/2021 09/19/2021 Diverticulitis 03/05/2019 03/06/2019 Last Assessment & Plan: Assessment: similar presentation to her past episodes. She is feeling a little better already PLAN: Ceftriaxone and flagyl Clear liquid diet IVF for 1L NS GI consulted documented as of this encounter (statuses as of 05/14/2023) [facility] NoteHNO ID: [id number] Author: RT Promise(R) Service: ? Author Type: Technologist Type: Progress Notes Filed: 09/18/2021 6:03 AM Note Text: Radiology Service Progress Note PATIENT NAME: Christina Macias DATE OF SERVICE: September 18, 2021 TIME: 6:02 AM PATIENT IDENTITY VERIFICATION COMPLETED USING TWO (2) IDENTIFIERS: Name and Date of confirmed by patient verbally and Name and Date of confirmed by identification band. FALL SCREENING: Has the patient had 2 falls in the last year or 1 fall with injury or currently using an Ambulatory Assistive Device (Walker, Cane, Wheelchair, Crutches, etc.)? Emergency Room Patient: Screened in ED PATIENT GENDER DATA: Female. status: : No status: N/A PATIENT RELEVANT IMPLANT DATA REVIEWED: Not Applicable RADIOLOGY DEPARTMENT: General X-ray: Exam(s) Completed: Chest X-Ray PERIPHERAL IV DATA: Not applicable SIGNED BY: RT Promise(R) September 18, 2021 6:02 [facility] Future Appointments [facility] Evaluation note* Diagnosis HTN (hypertension), benign Essential hypertension, benign documented in this encounter [facility] center note* Diagnosis HTN (hypertension), benign- Primary Essential hypertension, benign Prediabetes Other abnormal glucose Hyperlipidemia, unspecified hyperlipidemia type Vitamin D deficiency Unspecified vitamin D deficiency Primary osteoarthritis of right hip Primary localized osteoarthrosis, pelvic region and thigh Preop examination Preoperative examination, unspecified [facility] Onset Date Resolution Status Colitis acute Hypokalemia acute Status post total hip replacement, right acute Vomiting acute [facility] Work Phone: Evaluation note* Diagnosis Onset Date Resolution Status Colitis acute Status post total hip replacement, right acute Hypokalemia resolved Vomiting resolved Diverticulosis acute Status post total hip replacement, right acute Hypertension chronic Encounter to establish care noneactive [facility] Work Phone: Evaluation note* Diagnosis Bilateral impacted cerumen- Primary Impacted cerumen [facility] assessment information [facility] Work Phone: Hospital course Narrative No data available for this section [facility] Discharge instructions No data available for this section [facility] Reason for referral (narrative)No reason for referral information availableWMercy Health St[facility] Work Phone: Summary Purpose Family History No Family History Records Found Relationship Condition Age at Onset Recorded Date/T dayan Not Specified Cardiac disease Unknown Relationship Condition Age at Onset Recorded Date/T dayan Not Specified Diabetes mellitus Unknown Diverticular disease Unknown Cardiac disease Unknown brother Alcoholism Unknown Hypertension Unknown mother Malignant neoplasm Unknown grandmother Arthritis Unknown grandfather Arthritis Unknown father Myocardial infarction Unknown Advance Directives No Advanced Directives Records FoundDocuments on File Type Date Recorded 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 Advance Directive(s) 09/18/2021 5:41 AM Advance Directive(s) 09/11/2021 9:51 AM Advance Directive(s) 03/05/2019 8:04 AM Advance Directive(s) 04/28/2018 11:27 AM Advance Directive(s) 03/02/2018 5:47 PM Advance Directive(s) 03/02/2018 5:52 PM Advance Directive(s) 10/13/2017 5:36 PM Advance Directive(s) 01/24/2009 8:49 PM Advance Directive(s) 01/19/2009 8:05 PM Advance Directive(s) 07/27/2008 12:00 AM Advance Directive Response Recorded Date/ Time Living Will No July 12 4:18pm Power of Radio Announcer No July 12, 2022 4:18pm Advance Directive Response Recorded Date/ Time Name of Medical Power of Radio Announcer Jt Covarrubiasluz alfaro July 12, 2022 10:08pm Living Will Yes July 12 10:08pm Power of Radio Announcer Yes July 12, 2022 10:08pm Documents on File Type Date 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 Yes December 14, 2024 12:11am Name of Medical Power of Radio Announcer December 14, 2024 12:11am Hospital Course Note HNO ID: [id number] Author: Tee Coburn Service: Hospital Medicine Author Type: Physician Type: Discharge Summary Filed: 03/06/2019 11:16 AM Note Text: DISCHARGE SUMMARY PATIENT NAME: Christina Macias ADMISSION DATE: 03/05/2019 DISCHARGE DATE: 03/06/2019 ATTENDING PHYSICIAN: Saba Coburn Code Status: Not on file Highest Readmission Risk Score: 7 The 30 day readmissions risk score is derived from an internally validated risk model which evaluates patient level characteristics, utilization history, medication orders and lab results up until the day of discharge. Patients with a score of 40 or above are considered highest risk for readmission. Specific patient level drivers will be listed at the bottom of the summary. REASON FOR HOSPITALIZATION: Acute diverticulitis DIAGNOSIS: Principal Problem (Resolved): Diverticulitis Active Problems: Essential hypertension, benign OPERATIONS DURING HOSPITALIZATION: None PROCEDURES DURING HOSPITALIZATION: No procedures performed HO (more content not included)... Chief Complaint and Reason for Visit Chief Complaint N/V COLITIS nausea Reason for Visit Colitis Hypokalemia Status post total hip replacement, right Vomiting Chief Complaint N/V nausea COLITIS Reason for Visit Colitis Hypokalemia Status post total hip replacement, right Vomiting Chief Complaint N/V nausea COLITIS Colitis Amb Documentation Transition of Care EORDER Reason for Visit Colitis Status post total hip replacement, right Hypokalemia Vomiting Diverticulosis Status post total hip replacement, right Hypertension Encounter to establish care Chief Complaint INT LABS EORDER Chief Complaint EORDER Chief Complaint Admit Date HEADACHE, HTN February 3rd, 2025 9 :01pm INT LABS January 20, 2025 9:0 3am BP FU January 27, 2025 2:1 8pm Reason for Visit Admit Date Hypertension January 27, 2025 2:1 8pm Additional Source Comments INFORMATION SOURCE (unrecogn ized section and content) DATE CREATED AUTHOR 03/17/2019 [facility] DATE CREATED AUTHOR AUTHOR'S ORGANIZ ATION 09/20/2021 [facility] DATE CREATED AUTHOR AUTHOR'S ORGANIZ ATION 07/16/2022 [facility] ([place]) DATE CREATED AUTHOR AUTHOR'S ORGANIZ ATION 05/15/2023 [facility] DATE CREATED AUTHOR AUTHOR'S ORGANIZ ATION 07/06/2025 [facility] Source Comments (unrecognize d section and content) In the event this informatio n is protected by the Federal Confidentiality of Alcohol and Drug Abuse Patient Records regulations: The Federal rules restrict any use of the information to criminally investigate or prosecute any alcohol or drug abuse patient.[facility] HospitalIn the event this information is protected by the Federal Confidentiality of Alcohol and Drug Abuse Patient Records regulations: The Federal rules restrict any use of the information to criminally investigate or prosecute any alcohol or drug abuse patient.[facility] HospitalIn the event this information is protected by the Federal Confidentiality of Alcohol and Drug Abuse Patient Records regulations: The Federal rules restrict any use of the information to criminally investigate or prosecute any alcohol or drug abuse patient.[facility] HospitalIn the event this information is protected by the Federal Confidentiality of Alcohol and Drug Abuse Patient Records regulations: The Federal rules restrict any use of the information to criminally investigate or prosecute any alcohol or drug abuse patient.[facility] HospitalIn the event this information is protected by the Federal Confidentiality of Alcohol and Drug Abuse Patient Records regulations: The Federal rules restrict any use of the information to criminally investigate or prosecute any alcohol or drug abuse patient.[facility] HospitalIn the event this information is protected by the Federal Confidentiality of Alcohol and Drug Abuse Patient Records regulations: The Federal rules restrict any use of the information to criminally investigate or prosecute any alcohol or drug abuse patient.[facility] Reason for Visit (unrecogniz ed section and content) Reason Onset Date Comments Refill Request 02/09/2022 Reason Onset Date Comments Appointment 04/15/2022 [facility] Reason Comments Medical Clearance Reason Comments Ear Problem Left ear feels clogg ed x 1 day Care Teams (unrecognized sec tion and content) Assembler Product Relationship Specialty Start Date End Date King Mullen MD [facility] [address] [place] [address] PCP - General Family Practice 04/19/14 Ariel Onofre MD Primary Staff Physician Cardiology 01/26/19 Assembler Product Relationship Specialty Start Date End Date King Mullen MD [facility] [address] [place] [address] PCP - General Family Practice 04/19/14 Ariel Onofre MD Primary Staff Physician Cardiology 01/26/19 Assembler Product Relationship Specialty Start Date End Date King Mullen MD [facility] [address] [place] [address] PCP - General Family Practice 04/19/14 Ariel Onofre MD Primary Staff Physician Cardiology 01/26/19 Assembler Product Relationship Specialty Start Date End Date King Mullen MD [facility] [address] [place] [address] PCP - General Family Medicine 04/19/14 09/09/22 Andrew Billingsley MD [address] [place] [address] PCP - General Internal Medicine 09/11/22 Ariel Onofre MD Primary Staff Physician Cardiology 01/26/19 Assembler Product Relationship Specialty Start Date End Date Andrew Billingsley MD [address] [place] [address] PCP - General Internal Medicine 09/11/22 Ariel Onofre MD Primary Staff Physician Cardiology 01/26/19 Team Status: Active Member Role Status Dates Dr. Andrew Billingsley MD Primary Care Provider Active Team Status: Inactive Member Role Status Dates Dr. Andrew Billingsley MD Primary Care Pro vider, Attending Provider, Referring Provider Active Team Status: Inactive Member Role Status Dates Dr. Andrew Billingsley MD Primary Care Provider Active Start: December 13, 2024 End: December 14, 2024 Dr. Thomas Quintanilla DO Attending Provider Active Start: December 13, 2024 End: December 14, 2024 Dr. Thomas Quintanilla DO Emergency Provider Active Start: December 13, 2024 End: December 14, 2024 Team Status: Inactive Member Role Status Dates Dr. Andrew Billingsley MD Primary Care Provider Active Start: January 20, 2025 End: January 20, 2025 Dr. Andrew Billingsley MD Attending Provider Active Start: January 20, 2025 End: January 20, 2025 Dr. Andrew Billingsley MD Referring Provider Active Start: January 20, 2025 End: January 20, 2025 Team Status: Inactive Member Role Status Dates Dr. Andrew Billingsley MD Primary Care Provider Active Start: January 27, 2025 End: January 27, 2025 Dr. Andrew Billingsley MD Attending Provider Active Start: January 27, 2025 End: January 27, 2025 Care Team (unrecognized sect ion and content) Care Team Personnel Name: KING MULLEN MD Member Role: Primary Care Physician Address: Address: [place] [address]- Care Team Related Persons Name: JT MACIAS Address: Home [address] [place] [address] Care Team Personnel Name: KING MULLEN MD Member Role: Primary Care Physician Address: Address: [address] [address]- Care Team Related Persons Name: JT MACIAS Address: Home [address] [place] [address] Goals (unrecognized section and content) Goals may be documented in a n alternate section FOR RECORDS PERTAINING TO PATIENTS WHO ARE OR HAVE BEEN ENROLLED IN A CHEMICAL DEPENDENCY/SUBSTANCEABUSE PROGRAM, SOME INFORMATION MAY BE OMITTED. This clinical summary was aggregated from multiple sources. Caution should be exercised in using it in the provision of clinical care. This summary normalizes information from multiple sources, and as a consequence, information in this document may materially change the coding, format and clinical context of patient data. In addition, data may be omitted in some cases. CLINICAL DECISIONS SHOULD BE BASED ON THE PRIMARY CLINICAL RECORDS. [facility] [employer] [facility]. provides no warranty or guarantee of the accuracy or completeness of information in this document.
--- NOTE | 2025-07-11 12:21 | CT_ITS ---
PROCEDURE: BRAIN/HEAD WITHOUT CONTRAST 07/11/2025 REASON FOR EXAM: DIZZINESS TECHNIQUE: Procedure Code: CTBR Modality: CT Procedure: BRAIN/HEAD WITHOUT CONTRAST Coronal and Sagittal reconstruction series were provided. One or more dose reduction techniques were used (e.g., Automated exposure control, adjustment of the mA and/or kV according to patient size, use of iterative reconstruction technique. RADIATION DOSE SUMMARY: CTDlvol: 45 mGy DLP: 829 mGycm COMPARISON: December 13, 2024 FINDINGS: Brain: Heterogeneous low-density is shown within the right cerebellar hemisphere suggestive of vasogenic edema. Similar finding is seen in the right temporal and occipital lobe. A nearly isodense, oval focus is seen in the medial temporal lobe that may represent an underlying mass. No hemorrhage is seen. No extra-axial collection. Midline subfalcine shift to the left 6.4 mm. CSF Spaces: Mild generalized cerebral atrophy Sinuses/Mastoids: Clear. Septal deviation to the right. Bones: No fracture. CT/Brain/Head without Contrast IMPRESSION: 1. Low-density in the right temporal and occipital lobe and also of the right cerebellar hemisphere suggestive of vasogenic edema likely from underlying masses. This is new compared to December 13, 2024. Mild subfalcine herniation to the left 6.4 mm. Contrast-enhanced MRI may be helpful. 2. No hemorrhage. Reading Location: [id number]
--- NOTE | 2025-07-11 12:21 | EKG12_ITS ---
Test Reason : Blood Pressure : */* mmHG Vent. Rate : 78 BPM Atrial Rate : 78 BPM P-R Int : 176 ms QRS Dur : 92 ms QT Int : 434 ms P-R-T Axes : 83 58 80 degrees QTcB Int : 494 ms Sinus rhythm with frequent Premature ventricular complexes QTcB >= 480 msec Abnormal ECG Confirmed by Venancio English ([id number]), society editor RAFAELA MOREL ([id number]) on 07/12/2025 11:00:18 AM Referred By: Confirmed By: Venancio English
[2025-07-11 12:33] LABS: Hematocrit 40.8 % (37-47); Hemoglobin 14.0 g/dL (12.0-15.0); Immature Granulocytes Count 0.050 X10^3/uL (0.0-0.0); Mean Corp Hgb Conc 34.3 g/dL (32-36); Mean Corpuscular Volume 81.3 fL (81-99); Mean Platelet Vol. 11.0 fl (6.2-12.0); NRBC Flagged by Analyzer 0 % (0-5); Platelet Count 291 K/mm3 (150-450); RBC Distribution Width CV 12.9 % (11.6-14.6); RBC Distribution Width SD 38.0 fl (35.1-43.9); Red Blood Count 5.02 M/mm3 (4.2-5.4); White Blood Count 13.4 K/mm3 (4.4-11.0)
[2025-07-11 12:34] LABS: Color, Urine Yellow (Yellow); Glucose, Dipstick Normal (Normal); Ketone-Dipstick 50 mg/dl (Negative); Leukocyte Esterase-Dipstick 25 /ul (Negative); Nitrite-Dipstick Negative (Negative); Occult Blood-Urine 10 /ul (Negative); Protein-Dipstick 100 mg/dl (Negative); Specific Gravity, Urine 1.020 (1.002-1.030); Urine Bilirubin Dipstick Negative (Negative)
[2025-07-11] MEDS: 0.9% Normal Saline (1000mL) 1,000 ML 1000 ML IV (12:37)
[2025-07-11 12:54] LABS: Mucous, Urine 2+ /hpf (<or=2+); Red Blood Cells-Urine 0-5 SEEN /hpf (0-5); Squamous Epithelial Cells - UA 0-5 SEEN /hpf (5-10)
[2025-07-11 12:55] LABS: Anion Gap 15 (5-15); BUN 18 mg/dL (4-19); BUN/Creat Ratio 29.6 RATIO (10-20); Calcium,Total 9.9 mg/dL (7.6-11.0); Carbon Dioxide 22.0 mmol/L (21.0-32.0); Chloride 97 mmol/L (98-108); Estimated Creatinine Clearance 60.38 ml/min (50-250); Glucose 151 mg/dL (70-99); Potassium 3.4 mmol/L (3.3-5.1)
--- NOTE | 2025-07-11 18:58 | ED.RN ---
report attempt made at this time. ward secretary tells this rn the nurse that is taking that patient isn't even in yet. you will have to call back in 30 minutes to give report because of shift change. this rn tells ward secretary this ED is also doing shift change and this rn would like to give report before night order selector comes on. ward secretary states well the charge nurse told me to tell you to call back, sorry.
== END 2025-07-11 19:17 | disposition short-term general hospital (02) ==
PROVIDERS: Emergency Provider Emergency Medicine; PCP Internal Medicine; Visit Provider Emergency Medicine
DX: G93.5 Compression of brain (principal); R42 Dizziness and giddiness; I10 Essential (primary) hypertension; Z87.891 Personal history of nicotine dependence
CPT/HCPCS: 70450; 80048; 81001; 85025; 93005; 96361; 96374; 96375; 96376; 99285; A4216; J2405

== ENCOUNTER 2025-08-05 05:53 | Emergency (ER) | payer MEDICARE, OTHER, SELFPAY ==
[2025-08-05] VITALS (30 sets, daily range): BP systolic 131–183; BP diastolic 53–97; PULSE 72–111; RESP 12–23; TEMP 36.6–36.7; O2SAT 93–99; BMI 22.6
[2025-08-05] MEDS: 0.9% Normal Saline (1000mL) 1,000 ML 999 ML IV (06:35)
[2025-08-05 06:41] LABS: Hematocrit 46.6 % (37-47); Hemoglobin 16.2 g/dL (12.0-15.0); Immature Granulocytes Count 0.170 X10^3/uL (0.0-0.0); Mean Corp Hgb Conc 34.8 g/dL (32-36); Mean Corpuscular Volume 81.6 fL (81-99); Mean Platelet Vol. 10.3 fl (6.2-12.0); NRBC Flagged by Analyzer 0 % (0-5); POSITIVE COUNT YES; Platelet Count 289 K/mm3 (150-450); RBC Distribution Width CV 14.1 % (11.6-14.6); RBC Distribution Width SD 40.3 fl (35.1-43.9); Red Blood Count 5.71 M/mm3 (4.2-5.4); White Blood Count 21.5 K/mm3 (4.4-11.0)
[2025-08-05 07:02] LABS: Differential Comment SCANNED; Differential Indicated SCAN CRITERIA MET
--- OUTSIDE RECORDS SUMMARY | 2025-08-05 07:03 | XMS RPT_ITS | CCD ---
Author Organization [facility] Care Team Providers Care Senior Contract Specialist Name Role Phone SABA COBURN Admitting Unavailable SABA COBURN Attending Unavailable KIARRA NUGENT Consulting Unavailable King Mullen MD Primary Care Provider Sahil Onofre MD Unavailable DR KING MULLEN MD Primary Care Physician U Dr. Britt Huff Emergency Provider [phone] Care Physician, No Primary Primary Care Provider Unavailable Dr. John Car Attending Provider King Mullen MD Primary Care Provider Sahil Onofre MD Unavailable Andrew Billingsley MD Primary [...] Provider Unavailable Dr. Andrew Billingsley Attending Provider Sahil Onofre MD Unavailable Andrew Billingsley MD Primary Care Provider Dr. Andrew Billingsley MD Primary Care Provider [phone] Dr. Thomas Quintanilla DO Attending Provider Dwight PURI, Dr. Guzman Emergency Provider Analilia DUQUE, Dr. Rendon Attending Provider Analilia DUUQE, Dr. Rendon Referring Provider Analiila DUQUE, Dr. Rendon Primary Care Provider Analilia DUQUE, Dr. Rendon Attending Provider Analilia DUQUE, Dr. Rendon Referring Provider Iqra PURI, Dr. Paiz Emergency Provider [place] DUQUE, Sahil E Unavailable Analilia DUQUE, Andrew Leong Primary Care Provider [phone] Iqra PURI, Dr. Paiz Attending Provider Marianne Watson Attending Unavailable Analilia, Andrew Referring Unavailable Analilia, Andrew Primary Care Unavailable Analilia, Andrew Attending Unavailable Analilia, Andrew Primary Care Unavailable Analilia, Andrew Attending Unavailable Analilia, Andrew Primary Care Unavailable Analilia, Andrew Primary Care Unavailable Analilia, Andrew Attending Unavailable Analilia, Andrew Attending Unavailable Analilia, Andrew Referring Unavailable Analilia, Andrew Primary Care Unavailable Analilia, Andrew Attending Unavailable Analilia, Andrew Referring Unavailable Analilia, Andrew Primary Care Unavailable Analilia, Andrew Attending Unavailable Analilia, Andrew Referring Unavailable Analilia, Andrew Primary Care Unavailable Thomas Quintanilla Attending Unavailable Analilia, Andrew Primary Care Unavailable SchwigerGwen Attending Unavailable Analilia, Andrew Primary Care Unavailable ANALILIA, ANDREW M Primary Care Unavailable TARAS MARTINEZ UnavailRASHEED Burton Attending Unavailable GWEN HELM Referring Unavailable NED GARCIA Admitting Unavailable ANALILIA, ANDREW M Primary Care Unavailable KHAYYAT, DES F Attending Unavailable ANALILIA, ANDREW M Primary Care Unavailable KHAYYAT, DES F Referring Unavailable SHEREE DE JESUS Attending Unavailable ANALILIA, ANDREW M Primary Care Unavailable KHAYYAT, DES F Referring Unavailable ANALILIA, ANDREW M Primary Care Unavailable LIZA, SHEREE YAP Attending Unavailable ANDREW BILLINGSLEY Primary Care Unavailable LIZASHEREE Attending Unavailable ANDREW BILLINGSLEY Primary Care Unavailable ANGELICAAYYAT, DES F Referring Unavailable KHAYYAT, DES F Referring Unavailable ANDREW BILLINGSLEY Primary Care Unavailable LIZA, SHEREE MARELY Attending Unavailable CAROLINEYAT, DES F Referring Unavailable ANDREW BILLINGSLEY Primary Care Unavailable LIZA, SHEREE MARELY Attending Unavailable ANDREW BILLINGSLEY Primary Care Unavailable KHAYYAT, DES F Referring Unavailable LIZA, SHEREE MARELY Attending Unavailable ANDREW BILLINGSLEY Primary Care Unavailable ANGELICAAYYAT, DES F Referring Unavailable KHAYYAT, DES F Referring Unavailable ADNREW BILLINGSLEY Primary Care Unavailable ANDREW BILLINGSLEY Primary Care Unavailable KHAYYAT, DES F Referring Unavailable Allergies Allergy Classification Reported Allergen(s) Allergy Type Date of Onset Reaction(s) Facility (8 sources) Seasonal Allergies: Uncoded; Translations: [Seasonal Allergies: Uncoded] Allergy to substance 09-09-2022 Itching [facility] Medications Current Medications Medication Drug Class(es) Dates Sig (Normalized) Sig (Original) Ascorbic Acid (11 sources) Vitamin C Start: 08-07-2022 vitamin c Acti ve PO August 07, 2022 12:00am Start: 08-07-2022 vitamin c Acti ve PO August 06, 2022 11:00pm ascorbic acid (C HEWABLE VITAMIN C ORAL) Take by mouth. Active aspirin 81 mg delayed release oral tablet (20 sources) Platelet Aggregation Inhibitor, Nonsteroidal Anti-inflammatory Drug [...] 12:00am September 15, 2024 2:23pm Start: 07-19-2008 End: 07-19-2025 aspirin(BABY ASPIRIN 81 MG C HEWABLE TAB) Take one(1) tablet daily. 0 07/19/2008 07/19/2025 Discontinued Comment on above: Take one(1) tablet d aily. bifidobacterium infantis 4 mg oral capsule (2 sources) Start: 06-28-2022 Align 4 mg oral capsule Dose : 4 mg = 1 cap(s), Oral, Daily, PROBIOTIC, # 28 cap(s), 0 Refill(s) Start Date: 06/28/22 Status: Ordered Calcium (12 sources) Phosphate Binder, Calcium Start: 07-26-2025 calcium Active PO DAILY July 26, 2025 7:55am Start: 09-10-2023 End: 07-26-2025 calcium Discontinued PO TWIC E A WEEK September 10, 2023 8:06am July 26, 2025 7:55am Start: 09-10-2023 calcium Active PO TWICE A WEEK September 10, 2023 8:06am Start: 08-07-2022 End: 09-10-2023 calcium Discontinued PO Jul 12:00am September 10, 2023 8:07am Start: 08-07-2022 calcium Active PO August 07, 2022 12:00am Start: 08-07-2022 calcium Active PO August 06, 2022 11:00pm calcium carbonate 1500 mg oral tablet (2 sources) Start: 06-28-2022 calcium (as ca rbonate) 600 mg oral tablet Dose : 600 mg = 1 tab(s), Oral, qDay, 0 Refill(s) Start Date: 06/28/22 Status: Ordered calcium, elemental, tab (12 sources) Start: 10-17-2015 take 1 tablet by mouth once daily calcium, elemental, tab Take 1 tablet by mouth once daily. 10/17/2015 Active Start: 10-17-2015 take 1 tablet by jaylon th once daily calcium, elemental, tab Take 1 tablet by mouth once daily. 0 10/17/2015 Active Comment on above: Take 1 tablet by jaylon th once daily. cetirizine hydrochloride 10 mg oral capsule (20 sources) Histamine-1 Receptor Antagonist Start: take 1 capsule by mouth once daily Cetirizine (Zyrtec) 10 mg capsule Active 10 mg PO DAILY August 07, 2022 12:00am Start: 09-20-2021 take 1 tablet by jaylon th once daily cetirizine (ZYRTEC) 10 mg tablet Take 1 tablet by mouth once daily. 09/20/2021 Active Comment on above: Take 1 tablet by jaylon th once daily. cholecalciferol 0.025 mg oral tablet (4 sources) Vitamin D take 1 tablet by mouth once daily cholecalciferol (VITAMIN D) 1,000 unit tab tablet Take 1,000 Units by mouth once daily. Active dexamethasone 2 mg oral tablet (6 sources) Corticosteroid Start: 2024 End: 2024 take 1 tablet by mouth twice daily at mealtime dexAMETHasone (DECADRON) 2 mg tablet Take 1 tablet by mouth two times a day with meals for 14 days. Until follow up with Neurosurgery. Call them if you have not followed up yet and need more. 28 tablet 07/14/2025 3:18 PM EDT 07/14/2025 07/28/2025 Active docusate sodium 50 mg / sennosides, skilled nursing 8.6 mg oral tablet (1 source) Start: 2021 End: 2021 take 1 tablet by mouth twice daily Senokot S 50 mg-8.6 mg oral tablet Dose = 2 tab(s), Oral, BID, Take until first bowel movement, then as needed, # 30 tab(s), 0 Refill(s), Pharmacy: [facility] #[id number], 167.6, cm, 07/09/22 10:30:00 EDT, Height Start Date: 07/10/22 Stop Date: 07/13/22 Status: Ordered iv contrast (will be provided with radiology test) (6 sources) Start: 2024 inject 1 dose intravenously once iv contrast (will be provided with radiology test) Indications: Malignant neoplasm metastatic to brain (HCC) MRI Brain Inject, intravenously, once for 1 dose.No IV access, insert saline lock prior to beginning of sedation, infusion, injection of imaging exam.Discontinue saline lock post exam. If Pt. has a central line or IVAD, may access for administration according to line specific nursing protocol.Once exam is complete flush line and de-access according to line specific nursing protocol in the MR contrast administration guidelines link 1 each 07/19/2025 Active Start: 07-19-2025 inject 1 dose intravenously on ce iv contrast (will be provided with radiology test) Indications: Malignant neoplasm metastatic to brain (HCC) MRI Brain Localization Inject, intravenously, once for 1 dose.No IV access, insert saline lock prior to beginning of sedation, infusion, injection of imaging exam.Discontinue saline lock post exam. If Pt. has a central line or IVAD, may access for administration according to line specific nursing protocol.Once exam is complete flush line and de-access according to line specific nursing protocol in the MR contrast administration guidelines link 1 each 07/19/2025 Active lactobacillus acidophilus [id number] unt oral capsule (12 sources) Start: 10-17-2015 Lactobacillus acidophilus 10 billion cell cap Take once daily 0 10/17/2015 Active Comment on above: Take once daily 24 hr metoprolol succinate 25 mg extended release oral tablet (20 sources) beta-Adrenergi c Kareem Start: 01-27-2025 take 1 tablet by mouth once daily at bedtime metoprolol succinate ER (TOPROL XL) 25 mg 24 hr tablet Take 1 tablet by mouth daily at bedtime. 90 tablet 07/14/2025 Active Start: 12-02-2024 End: 01-27-2025 take 1 tablet by mouth twice daily Metoprolol Succinate 25 mg tablet extended release 24 hr Discontinued 25 mg PO TWICE A DAY 180 December 02, 2024 10:20am January 27, 2025 [...] 24 hr Discontinued 25 mg PO DAILY 90 3 August 20, 2024 11:00am September 15, 2024 3:04pm Start: 07-12-2022 End: 09-10-2023 take 1 tablet [...] Start Date: 06/28/22 Status: Ordered Multivitamin tablet (4 sources) Start: 08-07-2022 Multivitamin t ablet Active 1 {tbl} PO DAILY August 07, 2022 12:00am multivitamins(DAILY VITAMIN TAB) (12 sources) Start: 09-04-2009 multivitamins( DAILY VITAMIN TAB) Take one(1) tablet daily. 0 09/04/2009 Active Comment on above: Take one(1) tablet d aily. probiotic (7 sources) Start: 08-07-2022 probiotic Acti ve PO August 07, 2022 12:00am Start: 08-07-2022 probiotic Acti ve PO August 06, 2022 11:00pm Selenium 50 mcg tablet (1 source) Start: 07-26-2025 take 1 tablet by mouth once daily Selenium 50 mcg tablet Active 50 ug PO daily July 26, 2025 12:00am Vitamin C 500 mg oral tablet (2 sources) Start: 06-28-2022 Vitamin C 500 mg oral tablet Dose : 500 mg = 1 tab(s), Oral, qDay, # 30 tab(s), 0 Refill(s) Start Date: 06/28/22 Status: Ordered Vitamin D3 (2 sources) Start: 06-28-2022 Vitamin D3 Dos e : 25 mcg = 1 tab(s), Oral, Daily, 0 Refill(s) Start Date: 06/28/22 Status: Ordered vitamin e 180 mg oral capsule (1 source) Start: 07-26-2025 Vitamin E Mixe d 400 unit capsule Active 400 U PO DAILY July 26, 2025 12:00am VITAMIN E-400 ORAL (4 sources) VITAMIN E-400 OR AL Take by mouth. Active Completed/Discontinued Medications Medication Drug Class(es) Dates Sig (Normalized) Sig (Original) acetaminophen 500 mg oral tablet (10 sources) Start: 07-12-2022 End: 07-14-2022 Acetaminophen 500 [...] tab(s), 0 Refill(s), 07/24/22 7:50:00 EDT, Pharmacy: [email or web address] #[id number], 167.6, cm, 07/09/22 10:30:00 EDT, Height Start Date: 07/10/22 Stop Date: 07/24/22 Status: Ordered amLODIPine 5 mg oral tablet (20 sources) Dihydropyridine Calcium Channel Kareem Start: 12-02-2024 End: 01-27-2025 take 1 tablet by mouth once daily Amlodipine 5 mg tablet Discontinued 5 mg PO DAILY 90 3 December 02, 2024 1:46pm January 27, 2025 2:19pm Start: 06-28-2022 End: 08-23-2024 take 1 tablet by mouth once daily Amlodipine 5 mg tablet Discontinued 5 mg PO DAILY 90 September 10, 2023 10:02am August 23, 2024 9:37am Start: 02-11-2022 End: 07-19-2025 take 1 tablet by mouth twice daily amLODIPine (NORVASC) 5 mg tablet Take 1 tablet by mouth twice daily. 180 tablet 2 02/11/2022 07/19/2025 Discontinued Start: 09-21-2021 End: 02-09-2022 take 1 tablet by mouth twice daily amLODIPine (NORVASC) 5 mg tablet Take 1 tablet by mouth twice a day (new directions) 180 tablet 2 09/21/2021 02/09/2022 Discontinued Comment on above: Take 1 tablet by jaylon th twice a day (new directions) Take 1 tablet by jaylon th twice daily. azithromycin 250 mg oral tablet (4 sources) Macrolide Antimicrobial Start: 10-01-20 End: 09-15-20 Azithromycin (Zithromax Z-Jose) 250 mg tablet Discontinued 0 PO .COMPLEX 6 0 October 01, 2023 1:00am September 15, 2024 2:23pm For 250 mg dose pack: take 500 mg today (day 1), then 250 mg for 4 days (days 2-5) PO cefuroxime 250 mg oral tablet (3 sources) Cephalosporin Antibacterial Start: 07-06-20 End: 07-13-20 take 1 tablet by mouth twice daily Cefuroxime Axetil 250 mg tablet Discontinued 250 mg PO TWICE A DAY 14 7 0 July 06, 2025 12:00am July 12, 2025 12:00am July 13, 2025 12:07am chlorthalidone 25 mg oral tablet (20 sources) Thiazide-like Diuretic Start: 09-10-20 End: 08-23-20 take 0.5 tablet by mouth once daily Chlorthalidone 25 mg tablet Discontinued 25 mg PO DAILY 90 August 20, 2024 11:01August 23, 2024 9:38am 1/2 tab daily Start: 02-11-2022 End: 09-15-2024 take 1 tablet by mouth once daily Chlorthalidone 25 mg tablet Discontinued 25 mg PO DAILY August 23, 2024 9:37am September 15, 2024 3:04pm Start: 12-07-2021 End: 02-09-2022 take 1 tablet by mouth once daily chlorthalidone (HYGROTON) 25 mg tablet Take 1 tablet by mouth once daily. 90 tablet 1 12/07/2021 02/09/2022 Discontinued Comment on above: Take 1 tablet by jaylon th once daily. ciprofloxacin 500 mg oral tablet (9 sources) Quinolone Antimicrobial Start: 07-12-20 End: 08-07-20 take 1 tablet by mouth twice daily Ciprofloxacin Hcl 500 mg tablet Discontinued 500 mg PO TWICE A DAY 20 0 July 12, 2022 12:00am August 07, 2022 12:32pm famotidine 40 mg oral tablet (8 sources) Histamine-2 Receptor Antagonist Start: 07-14-20 End: 08-07-20 take 1 tablet by mouth once daily Famotidine 40 mg tablet Discontinued 40 mg PO DAILY 14 14 0 July 14, 2022 12:00am August 07, 2022 12:33pm lisinopril 20 mg oral tablet (20 sources) Angiotensin Converting Enzyme Inhibitor Start: 02-12-20 End: 07-19-20 take 1 tablet by mouth twice daily Lisinopril 20 mg tablet Discontinued 20 mg PO TWICE A DAY 180 3 March 26, 2023 4:51pm September 10, 2023 [...] the evening meloxicam 7.5 mg oral tablet (10 sources) Nonsteroidal Anti-inflammatory Drug Start: 07-10-20 End: 07-14-20 take 1 tablet by mouth twice daily Meloxicam 7.5 mg tablet Discontinued 7.5 mg PO TWICE A DAY July 12, 2022 12:00am July 14, 2022 11:35am mesalamine 1200 mg delayed release oral tablet (8 sources) Aminosalicylate Start: 07-14-20 End: 08-07-20 take 1 tablet by mouth twice daily Mesalamine 1.2 gram tablet,delayed release (DR/EC) Discontinued 1.2 g PO TWICE A DAY 56 28 0 July 14, 2022 12:00am August 07, 2022 12:33pm metroNIDAZOLE 500 mg oral tablet (9 sources) Nitroimidazole Antimicrobial Start: 07-12-20 End: 08-07-20 take 1 tablet by mouth every six hours Metronidazole 500 mg tablet Discontinued 500 mg PO EVERY 6 HOURS 40 0 July 12, 2022 12:00am August 07, 2022 12:33pm omeprazole 20 mg delayed release oral tablet (9 sources) Proton Pump Inhibitor Start: 08-07-20 End: 09-10-20 take 1 tablet by mouth once daily Omeprazole Magnesium (Prilosec Otc) 20 mg tablet,delayed release (DR/EC) Discontinued 20 mg PO DAILY August 07, 2022 12:00am September 10, 2023 8:07am Start: 06-28-2022 PriLOSEC OTC 2 0 mg oral delayed release tablet Dose : 20 mg = 1 tab(s), Oral, qDayAC, 0 Refill(s) Start Date: 06/28/22 Status: Ordered oxyCODONE hydrochloride 5 mg oral tablet (10 sources) Opioid Agonist Start: 07-10-2022 End: 08-07-2022 take 1 tablet by mouth every four hours as needed for pain Oxycodone 5 mg tablet Discontinued 5 mg PO EVERY 4 HOURS NEEDED as needed for Pain July 12, 2022 12:00am August 07, 2022 12:33pm Problems Active Problems Problem Classification Problem Date Documented Date Episodic/Chronic Abdominal pain (9 sources) Abdominal pain; Translations: [Unspecified abdominal pain] 07-20-2022 Episodic Administrative/social admission (1 source) Persons encountering health services in other specified circumstances; Translations: [Other reasons for seeking consultation] Episodic Cataract (12 sources) Senile cataract; Translations: [Unspecified age-related cataract] Onset: 01-10-2011 01-10-2011 Chronic Conditions associated with dizziness or vertigo (4 sources) Dizziness; Translations: [Dizziness and giddiness] Onset: 07-14-2025 07-11-2025 Episodic Diabetes mellitus without complication (1 source) Prediabetes; Translations: [Prediabetes] Episodic Disorders of lipid metabolism (13 sources) Hypertriglyceridemia; Translations: [Pure hyperglyceridemia] Onset: 01-07-2019 09-19-2021 Chronic Diverticulosis and diverticulitis (20 sources) Diverticulitis of intestine, part unspecified, without perforation or abscess without bleeding; Translations: [Diverticulosis of colon] Onset: 03-05-2019 Resolved: 03-06-2019 08-29-2005 Chronic Esophageal disorders (8 sources) Gastroesophageal reflux disease without esophagitis; Translations: [Gastro-esophageal reflux disease without esophagitis] Onset: 07-09-2022 Chronic Essential hypertension (20 sources) Benign hypertension; Translations: [Essential (primary) hypertension] Onset: 03-22-2002 Chronic Fluid and electrolyte disorders (20 sources) Hypokalemia; Translations: [Hypokalemia] Onset: 09-18-2021 Resolved: 09-19-2021 Episodic Headache; including migraine (4 sources) Headache; Translations: [Headache] 12-22-2024 Episodic Headache; including migraine (1 source) Headache; including migraine; Translations: [Headache, unspecified] Onset: 02-14-2025 Hypertension with complications and secondary hypertension (12 sources) Secondary hypertension; Translations: [Secondary hypertension, unspecified] Onset: 12-22-2020 09-18-2021 Chronic Nausea and vomiting (12 sources) Vomiting; Translations: [Vomiting, unspecified] Episodic Noninfectious gastroenteritis (12 sources) Colitis; Translations: [Noninfective gastroenteritis and colitis, unspecified] Episodic Nutritional deficiencies (1 source) Vitamin D deficiency; Translations: [Vitamin D deficiency, unspecified] Chronic Osteoarthritis (13 sources) Localized osteoarthrosis; Translations: [Unilateral primary osteoarthritis, unspecified knee] Onset: 07-19-2008 07-19-2008 Chronic Other connective tissue disease (1 source) Hip joint prosthesis present; Translations: [Presence of unspecified artificial hip joint] Onset: 07-09-2022 Chronic Other connective tissue disease (10 sources) History of total hip arthroplasty; Translations: [Presence of right artificial hip joint] 07-09-2022 Chronic Other connective tissue disease (4 sources) Presence of right artificial hip joint; Translations: [Hip joint replacement] Chronic Other ear and sense organ disorders (1 source) Impacted cerumen of bilateral ears; Translations: [Impacted cerumen, bilateral] Episodic Other endocrine disorders (6 sources) Adrenal mass; Translations: [Other specified disorders of adrenal gland] Onset: 07-12-2025 07-12-2025 Chronic Other liver diseases (6 sources) Liver mass; Translations: [Hepatomegaly, not elsewhere classified] Onset: 07-12-2025 07-12-2025 Episodic Other lower respiratory disease (6 sources) Lung mass; Translations: [Other nonspecific abnormal finding of lung field] Onset: 07-12-2025 07-12-2025 Episodic Other nervous system disorders (12 sources) Carpal tunnel syndrome of right wrist; Translations: [Carpal tunnel syndrome, right upper limb] Onset: 04-03-2018 09-18-2021 Chronic Other nervous system disorders (9 sources) Mass lesion of brain; Translations: [Other specified disorders of brain] Onset: 07-11-2025 07-11-2025 Chronic Other nervous system disorders (1 source) Other specified disorders of brain; Translations: [Brain mass] Onset: 07-11-2025 Chronic Other nutritional; endocrine; and metabolic disorders (6 sources) Hypercalcemia; Translations: [Hypercalcemia] 03-28-2023 Chronic Other upper respiratory disease (12 sources) Allergic rhinitis; Translations: [Other allergic rhinitis] Onset: 11-23-2003 03-05-2004 Chronic Other upper respiratory infections (4 sources) Upper respiratory infection; Translations: [Acute upper respiratory infection, unspecified] 10-01-2023 Episodic Secondary malignancies (6 sources) Secondary malignant neoplasm of bone; Translations: [Secondary malignant neoplasm of bone] Onset: 07-12-2025 07-12-2025 Chronic Secondary malignancies (1 source) Secondary malignant neoplasm of brain; Translations: [Secondary malignant neoplasm of brain] 07-19-2025 Chronic Secondary malignancies (1 source) Secondary malignant neoplasm of brain and spinal cord; Translations: [Secondary malignant neoplasm of brain] 07-20-2025 Chronic Secondary malignancies (2 sources) Secondary malignant neoplasm of brain; Translations: [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)] Onset: 07-19-2025 Chronic Unclassified (2 sources) Autogenerated Problem Onset: 07-20-2025 07-20-2025 Varicose veins of lower extremity (3 sources) Varicose veins of lower extremity; Translations: [Asymptomatic varicose veins of left lower extremity] 02-16-2025 Episodic Past or Other Problems Problem Classification Problem Date Documented Date Episodic/Chronic Acquired foot deformities (12 sources) Plantarflexion deformity of foot; Translations: [Other acquired deformities of unspecified foot] Onset: 07-05-2015 07-05-2015 Episodic Joint disorders and dislocations; trauma-related (12 sources) Tear of medial meniscus of knee; Translations: [Tear of medial cartilage or meniscus of knee, current] Onset: 11-14-2005 11-14-2005 Episodic Nonspecific chest pain (12 sources) Chest pain; Translations: [Chest pain, unspecified] Onset: 10-14-2017 10-14-2017 Episodic Other connective tissue disease (12 sources) Inflammatory disorder of extremity; Translations: [Pes anserinus tendinitis or bursitis] Onset: 11-14-2005 11-14-2005 Episodic Other connective tissue disease (12 sources) Pain in right foot; Translations: [Pain in right foot] Onset: 07-05-2015 07-05-2015 Episodic Other screening for suspected conditions (not mental disorders or infectious disease) (1 source) Encounter for screening for lipoid disorders; Translations: [Encounter for screening for lipoid disorders] Onset: 02-01-2025 Episodic Viral infection (6 sources) COVID-19; Translations: [Pneumonia due to other virus not elsewhere classified] Onset: 09-18-2021 Resolved: 09-19-2021 09-19-2021 Episodic Results Test Name Value Interpretation Reference Range Facility [facility] CHRISTINA MACIAS ([id number]) 1955 F Date Time Provider Department 08/03/25 LUANA PROCTOR During your visit today, we recorded the following information about you: Luana Proctor APRN.CNP 08/03/2025 12:26 PM Signed Contacted the patient via telephone. She reported that she is doing well and denies any specific complaints or concerns. She does state that she is resting a little more often. She denies any headache, visual changes, speech deficits, seizure activity, motor or sensory deficits. She was taking Decadron 2 mg every 6 hours and tolerating that well without issue. I told her that I spoke with Dr. Alva who would like to decrease the dosage to Decadron 1 mg every 12 hours. I will send the prescription through to her pharmacy on file. Should she develop any symptoms I told her to contact the office. Otherwise, we will call her on 08/09/2025 to check in again and hopefully decrease the steroid if able. All of her questions and concerns were addressed in detail. Luana Proctor APRN-[facility] Neurosurgery [facility] Pract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 - iv contrast (will be provided with radiology test) MRI Brain Inject, intravenously, once for 1 dose.No IV access, insert saline lock prior to beginning of sedation, infusion, injection of imaging exam.Discontinue saline lock post exam. If Pt. has a central line or IVAD, may access for administration according to line specific nursing protocol.Once exam is complete flush line and de-access according to line specific nursing protocol in the MR contrast administration guidelines link - iv contrast (will be provided with radiology test) MRI Brain Localization Inject, intravenously, once for 1 dose.No IV access, insert saline lock prior to beginning of sedation, infusion, injection of imaging exam.Discontinue saline lock post exam. If Pt. has a central line or IVAD, may access for administration according to line specific nursing protocol.Once exam is complete flush line and de-access according to line specific nursing protocol in the MR contrast administration guidelines link - ascorbic acid (CHEWABLE VITAMIN C ORAL) Take by mouth. - VITAMIN E-400 ORAL Take by mouth. - cholecalciferol (VITAMIN D) 1,000 unit tab tablet Take 1,000 Units by mouth once daily. - iv contrast (will be provided with radiology test) MRI Brain Inject, intravenously, once for 1 dose.No IV access, insert saline lock prior to beginning of sedation, infusion, injection of imaging exam.Discontinue saline lock post exam. If Pt. has a central line or IVAD, may access for administration according to line specific nursing protocol.Once exam is complete flush line and de-access according to line specific nursing protocol in the MR contrast administration guidelines link - iv contrast (will be provided with radiology test) MRI Brain Localization Inject, intravenously, once for 1 dose.No IV access, insert saline lock prior to beginning of sedation, infusion, injection of imaging exam.Discontinue saline lock post exam. If Pt. has a central line or IVAD, may access for administration according to line specific nursing protocol.Once exam is complete flush line and de-access according to line specific nursing protocol in the MR contrast administration guidelines link - metoprolol succinate ER (TOPROL XL) 25 mg 24 hr tablet Take 1 tablet by mouth daily at bedtime. - chlorthalidone (HYGROTON) 25 mg tablet Take 1 tablet by mouth once daily. - cetirizine (ZYRTEC) 10 mg tablet Take 1 tablet by mouth once daily. - calcium, elemental, tab Take 1 tablet by mouth once daily. - Lactobacillus acidophilus 10 billion cell cap Take once daily - multivitamins(DAILY VITAMIN TAB) Take one(1) tablet daily. Meds Comments as of 08/16/2013: Pt states she has albuterol but is not taking due to increase in HR. CM MA Problem List As Of Date 08/03/2025 Noted Resolved Essential hypertension, benign [I10] 03/22/2002 ALLERGIC RHINITIS NEC [J30.89] 11/23/2003 DIVERTICULOSIS OF COLON W/O BLEED [K57.30] TEAR MED MENISC KNEE-CURRENT [[id number]] 11/14/2005 PES ANSERINUS TENDINITIS [[id number]] 11/14/2005 LOC OSTEOARTH NOS-L/LEG [M17.10] 07/19/2008 Senile cataract, unspecified [H25.9] 01/10/2011 Pain in ri (more content not included)... Normal [facility] 08-01-2025 CNPN Telephone (NSCAM[facility]) -- CHRISTINA MACIAS ([id number]) 1955 F Date Time Provider Department 08/01/25 HERNANDEZ ROSADO [facility] During your visit today, we recorded the following information about you: Hernandez Rosado RN 08/01/2025 11:47 AM Signed Date of 08/25/25-2ns stage added Khayyat/Liza squamous mets PRE tx MRI and CT AKKAJAL please RESCHEDULE post ops Hernandez Rosado RN 08/03/2025 10:26 AM Signed Called and spoke with the pt. Let her know the date for next Gk boost treatment is 08/25. The pt verbalized understanding. Of note pt reports feeling terrible from her 3 days of treatment last week. She is taking her steroids as ordered. She is getting better each day. Pt advised to seek treatment at ED if things escalate. She verbalized understanding. Hernandez Rosado RN BSN Sustainability Coordinator Allergies As of Date: 08/01/2025 (No Known Allergies) Date Reviewed: 07/28/2025 Reviewed by: Tiarra Sutherland RN - Fully Assessed Reason for Visit: Gk boost date [Other] Prescriptions as of 08/03/2025 - dexAMETHasone (DECADRON) 1 mg tablet Take 1 tablet by mouth two times a day with meals. - iv contrast (will be provided with radiology test) MRI Brain Inject, intravenously, once for 1 dose.No IV access, insert saline lock prior to beginning of sedation, infusion, injection of imaging exam.Discontinue saline lock post exam. If Pt. has a central line or IVAD, may access for administration according to line specific nursing protocol.Once exam is complete flush line and de-access according to line specific nursing protocol in the MR contrast administration guidelines link - iv contrast (will be provided with radiology test) MRI Brain Localization Inject, intravenously, once for 1 dose.No IV access, insert saline lock prior to beginning of sedation, infusion, injection of imaging exam.Discontinue saline lock post exam. If Pt. has a central line or IVAD, may access for administration according to line specific nursing protocol.Once exam is complete flush line and de-access according to line specific nursing protocol in the MR contrast administration guidelines link - ascorbic acid (CHEWABLE VITAMIN C ORAL) Take by mouth. - VITAMIN E-400 ORAL Take by mouth. - cholecalciferol (VITAMIN D) 1,000 unit tab tablet Take 1,000 Units by mouth once daily. - iv contrast (will be provided with radiology test) MRI Brain Inject, intravenously, once for 1 dose.No IV access, insert saline lock prior to beginning of sedation, infusion, injection of imaging exam.Discontinue saline lock post exam. If Pt. has a central line or IVAD, may access for administration according to line specific nursing protocol.Once exam is complete flush line and de-access according to line specific nursing protocol in the MR contrast administration guidelines link - iv contrast (will be provided with radiology test) MRI Brain Localization Inject, intravenously, once for 1 dose.No IV access, insert saline lock prior to beginning of sedation, infusion, injection of imaging exam.Discontinue saline lock post exam. If Pt. has a central line or IVAD, may access for administration according to line specific nursing protocol.Once exam is complete flush line and de-access according to line specific nursing protocol in the MR contrast administration guidelines link - metoprolol succinate ER (TOPROL XL) 25 mg 24 hr tablet Take 1 tablet by mouth daily at bedtime. - chlorthalidone (HYGROTON) 25 mg tablet Take 1 tablet by mouth once daily. - cetirizine (ZYRTEC) 10 mg tablet Take 1 tablet by mouth once daily. - calcium, elemental, tab Take 1 tablet by mouth once daily. - Lactobacillus acidophilus 10 billion cell cap Take once daily - multivitamins(DAILY VITAMIN TAB) Take one(1) tablet daily. Meds Comments as of 08/16/2013: Pt states she has albuterol but is not taking due to increase in HR. CM MA Problem List As Of Date 08/01/2025 Noted Resolved Essential hypertension, benign [I10] 03/22/2002 ALLERGIC RHINITIS NEC [J30.89] 11/23/2003 DIVERTICULOSIS OF COLON W/O BLEED [K57.30] TEAR MED MENISC KNEE-CURRENT [CKC1838] 11/14/2005 PES ANSERINUS TENDINITIS [OFT9730] 11/14/2005 LOC OSTEOARTH NOS-L/LEG [M17.10] 07/19/2008 Senile cataract, unspecified [H25.9] 01/10/2011 Pain in right foot [M79.671] 07/05/2015 Equinus deformity of foot [M21.6X9] 07/05/2015 Chest pain [R07.9] 10/14/2017 Carpal tunnel syndrome, right [G56.01] 04/03/2018 Hypertriglyceridemia [E78.1] 01/07/2019 Diverticulitis [K57.92] 03/05/2019 03/06/2019 Secondary hypertension [I15.9] 12/22/2020 Pneumonia due to COVID-19 virus [U07.1, J12.82] 09/18/2021 09/19/2021 Hypokalemia [E87.6] 09/18/2021 09/19/2021 Hyponatremia [E87.1] 09/18/2021 09/19/2021 Brain mass [G93.89] 07/11/2025 Lung mass [R91.8] 07/12/2025 Liver mass [R16.0] 07/12/2025 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 Normal [facility] CNOVon 07-29-2025 CNOV Office Visit ([facility] ) -- CHRISTINA MACIAS ([id number]) 1955 F Date Time Provider Department 07/29/25 8:30 AM PLACEMENT MICAH PAULSON During your visit today, we recorded the following information about you: Pulse Blood pressure 104/minute 181/93 Keeley Rivers RN 07/29/2025 1:10 PM Signed July 29, 2025 1054 Christina Macias here for treatment session #3. Pt denies n/v today and confirms she was able to take decadron as prescribed. Transportation home verified: yes, with family. Is patient on immunotherapy? No. 1100 BP today is 181/93. Pt asymptomatic. Pt states she did not take her BP medication as she is worried it would make her vomit and she wouldn't make it to her treatment today. Pt plans to take her medication when she gets home post GKRS today. Pt will take BP at home and if symptomatic and/or BP elevated, pt will present to ED. Dr. Alva aware. ID verified with patient with two identifiers, name and birthdate. Keeley Rivers RN Christina Macias assessed for the following: Does Christina Macias have any pain? No. Pain 0 on scale of 0-10 Does Christina Macias have: Difficulty chewing and/or swallowing: no Fall risk assessment: At risk due to: use of a wheelchair Concerns about physical or emotional abuse: no Allergies reviewed with patient, yes. Patient's Age: 69 Menstruation Status: Post Menopausal Pt took decadron prior to arrival to [facility] today. No additional decadron to be given prior to Gamma Knife SRS per order of Dr. Milagro MD. 1131 Patient assisted to treatment room. Gamma Knife SRS begun. 1230 Gamma Knife Stereotactic Radiosurgery Completed. 1235 Discharge instructions given to patient by Luis Alfredo Sutherland RN on 07/28. No additional questions or concerns today. Pt then discharged. 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 Patient should start on July 28, 2025. - famotidine (PEPCID) 20 mg tablet Take 1 tablet by mouth once daily for 5 days. Patient should start on July 28, 2025. - ascorbic acid (CHEWABLE VITAMIN C ORAL) Take by mouth. - VITAMIN E-400 ORAL Take by mouth. - cholecalciferol (VITAMIN D) 1,000 unit tab tablet Take 1,000 Units by mouth once daily. - iv contrast (will be provided with radiology test) MRI Brain Inject, intravenously, once for 1 dose.No IV access, insert saline lock prior to beginning of sedation, infusion, injection of imaging exam.Discontinue saline lock post exam. If Pt. has a central line or IVAD, may access for administration according to line specific nursing protocol.Once exam is complete flush line and de-access according to line specific nursing protocol in the MR contrast administration guidelines link - iv contrast (will be provided with radiology test) MRI Brain Localization Inject, intravenously, once for 1 dose.No IV access, insert saline lock prior to beginning of sedation, infusion, injection of imaging exam.Discontinue saline lock post exam. If Pt. has a central line or IVAD, may access for administration according to line specific nursing protocol.Once exam is complete flush line and de-access according to line specific nursing protocol in the MR contrast administration guidelines link - metoprolol succinate ER (TOPROL XL) 25 mg 24 hr tablet Take 1 tablet by mouth daily at bedtime. - chlorthalidone (HYGROTON) 25 mg tablet Take 1 tablet by mouth once daily. - cetirizine (ZYRTEC) 10 mg tablet Take 1 tablet by mouth once daily. - calcium, elemental, tab Take 1 tablet by mouth once daily. - Lactobacillus acidophilus 10 billion cell cap Take once daily - multivitamins(DAILY VITAMIN TAB) Take one(1) tablet daily. Meds Comments as of 08/16/2013: Pt states she has albuterol but is not taking due to increase in HR. CM MA Problem List As Of Date 07/29/2025 Noted Resolved Essential hypertension, benign [I10] 03/22/2002 ALLERGIC RHINITIS NEC [J30.89] 11/23/2003 DIVERTICULOSIS OF COLON W/O BLEED [K57.30] TEAR MED MENISC KNEE-CURRENT [[id number]] 11/14/2005 PES ANSERINUS TENDINITIS [OXU0402] 11/14/2005 LOC OSTEOARTH NOS-L/LEG [M17.10] 07/19/2008 Senile cataract, unspecified [H25.9] 01/10/2011 Pain in right foot [M79.671] 07/05/2015 Equinus deformity of foot [M21.6X9] 07/05/2015 Chest pain [R07.9] 10/14/2017 Carpal tunnel syndrome, right [G56.01] 04/03/2018 Hypertriglyceridemia [E78.1] 01/07/2019 Diverticulitis [K57.92] 03/05/2019 03/06/2019 Seconda (more content not included)... Normal [facility] OPERATIVE NOon 07-29-2025 OPERATIVE NO HNO ID: [id number] Author: DES ALVA MD Service: Neurosurgery Author Type: Physician Type: Operative Report Filed: 07/29/2025 23:09 Note Text: [facility] [address] [place] [address] [place] OPERATIVE REPORT NAME: Christina Macias [facility] NO.: [id number] MASK SIMULATION DATE: 2025-07-27 RADIATION TREATMENT START DATE: 2025-07-29 RADIATION TREATMENT END DATE: 2025-07-29 NUMBER OF FRACTIONS: 1 PREOPERATIVE DIAGNOSIS: Metastasis, squamous cell carcinoma POSTOPERATIVE DIAGNOSIS: Same OPERATION: 1 fraction mask gamma knife radiosurgery. ANESTHESIA: None SURGEON: Des Alva M.D. - Stereotactic treatment planning. RADIATION ONCOLOGIST: Sheree De Jesus M.D. ASSISTANTS: NONE SPECIMEN: None EBL: 0 ccs OPERATIVE INDICATIONS: The full clinical history and indications for treatment were discussed in the initial neurosurgery visit note. The indications, risks, benefits, and alternatives were discussed with the patient who asked us to proceed. The patient is aware that this may be one of several staged procedures in the management of this disorder. OPERATIVE FINDINGS: DESCRIPTION OF PROCEDURE: The patient was admitted to the [facility] Center. The Leksell mask was created and a stereotactic cone-beam CT was obtained. The patient then underwent high-resolution MRI and CT imaging. The scans, including the cone-beam registration CT, were loaded in the planning computer and [employer] [place] gamma plan was used to perform fractionated radiosurgery dose planning. The lesions were treated as follows: Target 1 (r par occ) Location: r par occ Prescription: 24 Gy to the 88% local isodose line. The plan uses 3 shots covering 100% of the target. GTV Volume: 0.58 cm3 CTV Volume: 0.58 cm3 Max linear size: 1.2 cm Conformality Index (PIV/CTV) = 1.517 Complexity: Simple Gradient Index: 4.8 Number of Fractions: 1 Target 2 (l ant fr) Location: l ant fr Prescription: 24 Gy to the 80% local isodose line. The plan uses 2 shots covering 100% of the target. GTV Volume: 0.16 cm3 CTV Volume: 0.16 cm3 Max linear size: 0.71 cm Conformality Index (PIV/CTV) = 1.625 Complexity: Simple Gradient Index: 3.2 Number of Fractions: 1 Target 3 (l lat par) Location: l lat par Prescription: 24 Gy to the 90% local isodose line. The plan uses 1 shots covering 100% of the target. GTV Volume: 0.084 cm3 CTV Volume: 0.084 cm3 Max linear size: 0.62 cm Conformality Index (PIV/CTV) = 1.905 Complexity: Simple Gradient Index: 4.7 Number of Fractions: 1 Target 4 (l mesial par) Location: l mesial par Prescription: 24 Gy to the 94% local isodose line. The plan uses 2 shots covering 100% of the target. GTV Volume: 0.05 cm3 CTV Volume: 0.05 cm3 Max linear size: 0.52 cm Conformality Index (PIV/CTV) = 1.94 Complexity: Simple Gradient Index: 6.9 Number of Fractions: 1 After the usual senior quality assurance engineer procedures were performed, fractionated radiosurgery was delivered with use of the Gamma Knife. The Gamma Knife checklists and time outs were performed during this procedure in a standard manner. Des Alva M.D. [facility] CNOVon 07-28-2025 CNOV Office Visit ([facility] ) -- GILBERTOCHRISTINA Elisa ([id number]) 1955 F Date Time Provider Department 07/28/25 9:00 AM PLACEMENT MICAH PAULSON During your visit today, we recorded the following information about you: Pulse Respiration Blood pressure 99/minute 20/minute 189/86 Tiarra Sutherland RN 07/28/2025 11:42 AM Addendum [facility] Discharge Instructions As with any surgery there are risks and potential side effects. There is a slight chance of developing brain swelling days or months after the Gamma Knife radiosurgery. If you experience nausea, vomiting, severe headache, visual changes, difficulty speaking, a seizure or any other symptom unusual for you, contact your physician immediately or go to the nearest emergency room. These may or may not be symptoms of brain swelling. If you go to a physician or hospital other than the [facility] with any problem related to the Gamma Knife procedure, please call your physician, Dr. Virginia Alva at [phone]. After your treatment, you may experience a mild headache. You may take non-aspirin pain medication, such as Tylenol, if you are having any discomfort. Some patients are placed on steroids, such as Decadron, and an antacid, such as Pepcid, following their radiosurgery. Certain conditions require these medications to lessen the chance of swelling around the treated area. When prescribed, these medications are extremely important in the period immediately following your Gamma Knife treatment and must be taken exactly as directed. Per order of Dr. Alva you should continue to take Pepcid and Decadron 2 mg every six hours by mouth until he instructs you otherwise. He will plan to speak with you next week regarding this. Resume all other regular medications. -Taking good care of your general health is an important step to recovery. Continue to eat well and get plenty of rest. If you have any non-urgent questions or concerns, please call your physician, Dr. Virginia Alva at [phone] Friday through Friday 8:00 am to 5:00 pm. In the evening or on weekends, call [phone] or toll-free [phone]-HIL-CARE and ask the black top paver operator to page your neurosurgeon's resident software applications designer. Tiarra Sutherland RN 07/28/2025 12:31 PM Signed July 28, 2025 1035 Christina Macias here for treatment session two. She reports that she has not taken any Decadron since yesterday. States she tried to take a dose at home and had an emesis. States she continued to have emesis last evening. Dr. Alva to the room. Patient relays this information to Dr. Alva. He states he will order Decadron to be given here today in clinic and that patient should continue her home dosing of 2 mg every 6 hours at home. He instructs the patient that if she is unable to keep Decadron down she needs to notify him as she will need to be admitted to the hospital to receive the medication IV. 1040 BP elevated 189/86. Dr. Alva present in room and aware. No new orders. Patient states that she took her BP medication this AM. Transportation home verified: yes, with . Is patient on immunotherapy? No. ID verified with patient with two identifiers, name and birthdate. Tiarra Sutherland RN Christina Macias assessed for the following: Does Christina Macias have any pain? Yes: LOCATION: mild headache. Dr. Alva present in room with patient. No new orders. Does Christina Macias have: Difficulty chewing and/or swallowing: no Fall risk assessment: At risk due to: use of other ambulatory device wheelchair and cane Concerns about physical or emotional abuse: no Allergies reviewed with patient, yes. Patient's Age: 69 Menstruation Status: Post Menopausal 1040 Patient assisted to treatment room. Gamma Knife SRS begun. 1140 Gamma Knife Stereotactic Radiosurgery Completed. 1145 Decadron 4 mg po given with applesauce per order of Dr. Milagro MD. 1150 Discharge instructions given to patient. Instructions reviewed by this nurse and patient verbalized understanding. I reviewed with family including that patient should resume Decadron 2 mg po every six hours at 6 PM tonight. Instructed that if patient continues to have emesis with taking Decadron they are to contact Dr. Milagro MD to notify him. They verbalized understanding. Pt then discharged. 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 Normal [facility] OPERATIVE NOon 07-28-2025 OPERATIVE NO HNO ID: [id number] Author: DES ALVA MD Service: Neurosurgery Author Type: Physician Type: Operative Report Filed: 07/28/2025 15:40 Note Text: [facility] [address] [place] [address] [place] OPERATIVE REPORT NAME: Christina Macias CLINIC NO.: [id number] MASK SIMULATION DATE: 2025-07-27 RADIATION TREATMENT START DATE: 2025-07-28 RADIATION TREATMENT END DATE: 2025-07-28 NUMBER OF FRACTIONS: 1 PREOPERATIVE DIAGNOSIS: Metastasis, squamous cell carcinoma POSTOPERATIVE DIAGNOSIS: Same OPERATION: 1 fraction mask gamma knife radiosurgery. ANESTHESIA: None SURGEON: Des Alva M.D. - Stereotactic treatment planning. RADIATION ONCOLOGIST: Sheree De Jesus M.D. ASSISTANTS: NONE SPECIMEN: None EBL: 0 ccs OPERATIVE INDICATIONS: The full clinical history and indications for treatment were discussed in the initial neurosurgery visit note. The indications, risks, benefits, and alternatives were discussed with the patient who asked us to proceed. The patient is aware that this may be one of several staged procedures in the management of this disorder. OPERATIVE FINDINGS: DESCRIPTION OF PROCEDURE: The patient was admitted to the [facility] Center. The Leksell mask was created and a stereotactic cone-beam CT was obtained. The patient then underwent high-resolution MRI and CT imaging. The scans, including the cone-beam registration CT, were loaded in the planning computer and [place] gamma plan was used to perform fractionated radiosurgery dose planning. The lesions were treated as follows: Target 1 (l cereb) Location: l cereb Prescription: 18 Gy to the 55% local isodose line. The plan uses 8 shots covering 100% of the target. GTV Volume: 5 cm3 CTV Volume: 5 cm3 Max linear size: 2.3 cm Conformality Index (PIV/CTV) = 1.326 Complexity: Simple Gradient Index: 3.8 Number of Fractions: 1 Target 2 (r occ) Location: r occ Prescription: 24 Gy to the 75% local isodose line. The plan uses 5 shots covering 100% of the target. GTV Volume: 1.61 cm3 CTV Volume: 1.61 cm3 Max linear size: 1.6 cm Conformality Index (PIV/CTV) = 1.292 Complexity: Simple Gradient Index: 2.9 Number of Fractions: 1 Target 3 (l lat occ) Location: l lat occ Prescription: 24 Gy to the 76% local isodose line. The plan uses 12 shots covering 100% of the target. GTV Volume: 1.04 cm3 CTV Volume: 1.04 cm3 Max linear size: 1.4 cm Conformality Index (PIV/CTV) = 1.26 Complexity: Simple Gradient Index: 4.2 Number of Fractions: 1 After the usual senior quality assurance engineer procedures were performed, fractionated radiosurgery was delivered with use of the Gamma Knife. The Gamma Knife checklists and time outs were performed during this procedure in a standard manner. Des Alva M.D. [facility] CNOVon 07-27-2025 CNOV Office Visit ([facility] ) -- CHRISTINA MACIAS ([id number]) 1955 F Date Time Provider Department 07/27/25 7:30 AM PLACEMENT MICAH PAULSON During your visit today, we recorded the following information about you: Pulse Blood pressure 64/minute 165/76 Lynne Moreno RN 07/27/2025 2:48 PM Signed July 27, 2025 0633 Christina arrived to Gamma Knife with: friend, Davey. Transportation home verified: yes, with friend,. Davey. Christina here for today for imaging, mask fitting, pre-planning for Icon mask based Gamma Knife Stereotactic Radiosurgery by radiation therapist, and single session mask based treatment. ID verified with patient with two identifiers, name and birthdate. Lynne Moreno RN Christina assessed for the following: Does Christina have any pain? No. Pain 0 on scale of 0-10 Does Christina have: Difficulty chewing and/or swallowing: no Fall risk assessment: At risk due to: use of other ambulatory device cane Concerns about physical or emotional abuse: no Allergies reviewed with patient, yes. [id number] Mask completed. To imaging for CT Scan and MRI. Christina Macias returned to department for treatment # 1 of 1. Is patient on immunotherapy? No. Patient's Age: 69 Menstruation Status: Post Menopausal, patient does not meet criteria for HCG testing. 1231 Decadron 10 mg po given prior to Gamma Knife SRS per order of Dr. Milagro MD. 1315 Patient assisted to treatment room. Gamma Knife SRS begun. 1444 Gamma Knife Stereotactic Radiosurgery Completed. 1447 Discharge instructions given to patient. Instructions reviewed by this nurse and patient verbalized an understanding. Pt instructed she is to return tomorrow for additional treatment. Pt then discharged. JAYDEN Stanton Jonathan, RN 07/27/2025 12:38 PM Signed [facility] Discharge Instructions As with any surgery there are risks and potential side effects. There is a slight chance of developing brain swelling days or months after the Gamma Knife radiosurgery. If you experience nausea, vomiting, severe headache, visual changes, difficulty speaking, a seizure or any other symptom unusual for you, contact your physician immediately or go to the nearest emergency room. These may or may not be symptoms of brain swelling. If you go to a physician or hospital other than the [facility] with any problem related to the Gamma Knife procedure, please call your physician, Dr. Virginia Alva at [phone]. After your treatment, you may experience a mild headache. You may take non-aspirin pain medication, such as Tylenol, if you are having any discomfort. Some patients are placed on steroids, such as Decadron, and an antacid, such as Pepcid, following their radiosurgery. Certain conditions require these medications to lessen the chance of swelling around the treated area. When prescribed, these medications are extremely important in the period immediately following your Gamma Knife treatment and must be taken exactly as directed. The Gamma Knife nurse will discuss your particular situation with you. Do not take any decadron for the remainder of today. Please begin following the new decadron regimen below on 07/28/2025: Start the day after your Gamma Knife procedure: Take 2 mg (1 tablet) every six hours for 5 days. Start this treatment the day AFTER gamma knife radiation (07/28/2025) Take Decadron with a meal or snack. Pepcid (Famotidine) 20 mg tablets: Take Pepcid 20 mg (1 tablet) twice a day while on Decadron; stop Pepcid when you stop Decadron. Resume all other regular medications. -Taking good care of your general health is an important step to recovery. Continue to eat well and get plenty of rest. If you have any non-urgent questions or concerns, please call your physician, Dr. Virginia Alva at [phone] Friday through Friday 8:00 am to 5:00 pm. In the evening or on weekends, call [phone] or toll-free [phone] and ask the black top paver operator to page your neurosurgeon's resident software applications designer. 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 Patient should start on July 28, 2025. - famotidine (PEPCID) 20 mg tablet Take 1 tablet by mouth once daily for 5 days. Patient should start on July 28, 2025. - ascorbic acid (CHEWABLE VITAMIN C ORAL) Take by mouth. - VITAMIN E-400 ORAL Take by mouth. - ch (more content not included)... Normal [facility] CT BRAIN WO IVCONon 07-27-[address] BRAIN WO IVCON * * *Final Report* * * DATE OF EXAM: Jul 27 2025 7:53AM [facility] 0504 - CT BRAIN WO IVCON / PROCEDURE REASON: Malignant neoplasm metastatic to brain (HCC) * * * * Physician Interpretation * * * * EXAMINATION: CT BRAIN WO IVCON CLINICAL HISTORY: Malignant neoplasm metastatic to brain. TECHNIQUE: Serial axial images without IV contrast were obtained from the vertex to the foramen magnum. MQ: CTBWO_3 CT Radiation dose: Integrated Dose-Length Product (DLP) for this visit = 1040 mGy*cm CT Dose Reduction Employed: No dose reduction techniques were required COMPARISON: Concurrent MRI brain 07/27/2025 and MRI brain 07/11/2025. RESULT: Localizer images: No additional findings. Examination performed for preoperative localization planning purposes. Interval increase in size of multiple centrally hypodense intracranial metastases compared to MRI 07/11/2025 and which are seen to better advantage on concurrent brain MRI 07/27/2025. Index lesions are as follows compared to MRI 07/11/2025: Image 75, right medial temporal lobe lesion measuring 21 x 22 mm, previously 16 x 17 mm. Image 75, right occipital lobe lesion measuring 13 x 13 mm, previously 9 x 7 mm. Image 47, right cerebellar hemisphere lesion measuring 15 x 16 mm, previously 12 x 14 mm. Image 42, left cerebral hemisphere lesion measuring 21 x 22 mm, previously 10 x 10 mm. Multiple additional smaller intracranial metastases are suboptimally evaluated by noncontrast CT. Stable surrounding perilesional edema and mass effect. No space occupying intracranial hemorrhage. No extra-axial collection. No midline shift. No territorial infarct. Ventricles are stable in size and configuration with unchanged partial effacement of the fourth ventricle and right lateral ventricle. The paranasal sinuses are clear. Partial opacification of the right mastoid air cells. Bilateral ocular lens replacements, the orbits are otherwise normal appearing. IMPRESSION: Examination performed for preoperative localization planning purposes. Interval increase in size of multiple intracranial metastases compared to MRI 07/11/2025 and which are seen to better advantage on concurrent MRI brain 07/27/2025. Grab Hooker: PSCB Transcribe Date/Time: Jul 27 2025 8:30A Dictated by : SHARONDA ANTHONY MD This examination was interpreted and the report reviewed and electronically signed by: GISSEL GILMORE MD on Jul 27 2025 9:44AM EST [id number] Normal [facility] MRI BRAIN LOCAL W IVCONon MRI BRAIN LOCAL W IVCON * * *Final Report* * * DATE OF EXAM: Jul 27 2025 7:44AM CAM 0289 - MRI BRAIN LOCAL W IVCON / PROCEDURE REASON: Malignant neoplasm metastatic to brain (HCC) * * * * Physician Interpretation * * * * COMPARISONS: 07/11/2025. HISTORY: Brain metastasis. TECHNIQUE: MRI brain with contrast. MQ: [id number]_2 CONTRAST: 7 mL Elucirem IV. RESULT: MRI BRAIN: Acute abnormality: Brain metastasis. Single postcontrast T1 sequence of the brain was obtained. Multiple enhancing necrotic lesions are identified throughout the brain compatible with patient's known history of brain metastasis. Associated with the right temporal lobe is significant vasogenic edema and mass effect with effacement of sulci and gyri and distortion of the ventricular system with approximately 1 to 3 mm right to left midline shift. Edema is also identified with the right cerebellar lesion but without any transtentorial and transforaminal herniation. Metastatic lesions are detailed on series 2 postcontrast axial T1 sequence and are as follows: NEW OR PROGRESSING LESIONS: 4 mm left mesial frontal on series 2 image 45 is new since prior study. 5 mm superior frontal cortex on image 52 is new from prior study. 4 mm left frontal lateral cortex on image 54 is new from prior study. Right mesial parietal 9 mm on image 97 has increased from 7 mm previously. Right mesial temporal 2 subjacent lesions are identified. First one along lateral aspect on image 110 at 12 mm was 11 mm. Inferiorly necrotic 25 mm on image 115 was 17 mm. Right occipital on image 122 is 13 mm increased from 6 mm. Left parieto-occipital on image 126 is 12 mm increased from 5 mm previously. Right brachium pontis inferiorly 15 mm on image 141 was 6 9 mm. Left mesial mid cerebellar 20 mm on image 146 was 9 mm. Right lateral cerebellar 17 mm on image 146 has increased from 12 mm. STABLE LESIONS: None INVOLUTED LESIONS: None No definite leptomeningeal enhancement is identified. Associated mass effect is detailed above. No herniation at this point. Slight distortion of the right lateral ventricle. No osseous or dural or leptomeningeal disease is noted. Orbits, sinuses and skull base are symmetrical and stable. IMPRESSION: Satisfactory preintervention imaging. Grab Hooker: PSCB Transcribe Date/Time: Jul 27 2025 9:05A Dictated by : GISSEL GILMORE MD This examination was interpreted and the report reviewed and electronically signed by: GISSEL GILMORE MD on Jul 27 2025 9:11AM EST [id number] Normal [facility] OPERATIVE NOon 07-27-2025 OPERATIVE NO HNO ID: [id number] Author: DES ALVA MD Service: Neurosurgery Author Type: Physician Type: Operative Report Filed: 07/27/2025 20:50 Note Text: [facility] [address] [place] [address] [place] OPERATIVE REPORT NAME: Christina Macias [facility] NO.: [id number] MASK SIMULATION DATE: 2025-07-27 RADIATION TREATMENT START DATE: 2025-07-27 RADIATION TREATMENT END DATE: 2025-07-27 NUMBER OF FRACTIONS: 1 PREOPERATIVE DIAGNOSIS: Metastasis, squamous cell carcinoma POSTOPERATIVE DIAGNOSIS: Same OPERATION: 1 fraction mask gamma knife radiosurgery. ANESTHESIA: None SURGEON: Des Alva M.D. - Stereotactic treatment planning. RADIATION ONCOLOGIST: Sheree De Jesus M.D. ASSISTANTS: NONE SPECIMEN: None EBL: 0 ccs OPERATIVE INDICATIONS: The full clinical history and indications for treatment were discussed in the initial neurosurgery visit note. The indications, risks, benefits, and alternatives were discussed with the patient who asked us to proceed. The patient is aware that this may be one of several staged procedures in the management of this disorder. OPERATIVE FINDINGS: DESCRIPTION OF PROCEDURE: The patient was admitted to the Gamma Knife Center. The Leksell mask was created and a stereotactic cone-beam CT was obtained. The patient then underwent high-resolution MRI and CT imaging. The scans, including the cone-beam registration CT, were loaded in the planning computer and Leksell gamma plan was used to perform fractionated radiosurgery dose planning. The lesions were treated as follows: Target 1 (r cereb lat) Location: r cereb lat Prescription: 18 Gy to the 61% local isodose line. The plan uses 19 shots covering 100% of the target. GTV Volume: 3.21 cm3 CTV Volume: 3.21 cm3 Max linear size: 2.1 cm Conformality Index (PIV/CTV) = 1.321 Complexity: Simple Gradient Index: 2.7 Number of Fractions: 1 Target 2 (r cereb ant) Location: r cereb ant Prescription: 18 Gy to the 76% local isodose line. The plan uses 12 shots covering 100% of the target. GTV Volume: 1.43 cm3 CTV Volume: 1.43 cm3 Max linear size: 1.7 cm Conformality Index (PIV/CTV) = 1.608 Complexity: Simple Gradient Index: 4.1 Number of Fractions: 1 Target 3 (r med temp) Location: r med temp Prescription: 15 Gy to the 65% local isodose line. The plan uses 36 shots covering 100% of the target. GTV Volume: 7.39 cm3 CTV Volume: 7.39 cm3 Max linear size: 3.2 cm Conformality Index (PIV/CTV) = 1.407 Complexity: Simple Gradient Index: 3 Number of Fractions: 1 After the usual senior quality assurance engineer procedures were performed, fractionated radiosurgery was delivered with use of the Gamma Knife. The Gamma Knife checklists and time outs were performed during this procedure in a standard manner. Des Alva M.D. Normal [facility] /MARIAM.[place] 07-26-2025 /MARIAM.[facility] Internal Medicine [address] [place] [address] OFFICE VISIT Date of Service: 07/26/25 MR#: [id number] Acct: [id number] Name: CHRISTINA MACIAS Rep #: [id number] : 1955 Provider: Dr. 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 Accompanied by: Is patient in pain?: Yes (Lower Abdomen/Head) Pain scale (1-10): 6 Allergies Seasonal Allergies: Uncoded Allergy (Intermediate, Verified 07/26/25 07:48) Itching Medications ???Medication ???Instructions ???Recorded ???Confirmed ???Type cetirizine 10 mg capsule (Zyrtec) 10 mg PO DAILY 08/07/22 07/26/25 History multivitamin 1 tab PO DAILY 08/07/22 07/26/25 H istory probiotic PO 08/07/22 07/26/25 History vitamin c PO 08/07/22 07/26/25 History aspirin 81 mg tablet,delayed 81 mg PO QDAY 09/15/24 02/16/25 Hi story release chlorthalidone 25 mg tablet 25 mg PO DAILY #90 tabs 09/15/24 0 07/26/25 Rx metoprolol succinate 25 mg 25 mg PO QDAY 01/27/25 07/26/25 Hi story tablet,extended release 24 hr calcium PO DAILY 07/26/25 07/26/25 History selenium 50 mcg tablet 50 mcg PO QDAY 07/26/25 07/26/25 H istory vitamin E mixed 400 unit capsule 400 unit PO DAILY 07/26/25 5 History Have you fallen in the past year?: No PFSH Medical History (Updated 07/26/25 @ 09:[address] Andrew Billingsley MD) Metastasis to brain Metastatic squamous cell carcinoma Diverticulitis Vision problems GERD (gastroesophageal reflux disease) [...] physical activity do you participate in: walking aleksey/roman catholic: Latter-Day seatbelt use: always do you feel safe at home: Yes HPI HPI Details: CHRISTINA MACIAS, is a 69 F who presents to the office today for hospital follow-up. Patient went to the emergency room on 11 July with the complaints of dizziness, apparently frontal headache, nausea, some vomiting, decreased appetite. Apparently relatively recently was started on antibiotic prior to that. In the emergency room she underwent physical evaluation, as well as imaging of the head unfortunately showing what appeared to be multiple metastatic deposits in the brain with surrounding edema. She was transferred to [facility] where apparently additional imaging took place including apparently CT scan abdomen and pelvis. I was not provided with that information but reportedly according to the information I do have a, she had biopsy of the liver. I have not seen that result. She was subsequently discharged according to note with recommended follow-up with neurosurgery. She was discharged reportedly on dexamethasone. Since discharge she has been using some anti-inflammatories at the recommendation of [facility] for her headache. She is due to start her gamma knife tomorrow. She is having some vague abdominal upset, but denies pain. I suggested she started on Prilosec once each morning 20 mg [id number] at least until she is off of routine use of anti-inflammatories. She is in agreement. Review of systems per chart. Physical exam. Vital signs on chart. EOMI. There is nystagmus, with bilateral lateral gaze. PERRLA. Sclera are clear. TMs are unremarkable with normal light reflexes. Canals are unremar (more content not included)... Normal [facility] 07-20-2025 [facility] Telephone (LETICIA) -- CHRISTINA MACIAS ([id number]) 1955 F Date Time Provider Department 07/20/25 VASYL CELIS During your visit today, we recorded the following information about you: Georgette Dhillon 07/20/2025 10:09 AM Signed Patient called stating that Dr. Alva is referring her to Medical Oncology. Unable to see order/referral. Please review and advise. Claudette Klein LPN 07/20/2025 11:40 AM Signed DX: metastatic lung cancer. Please schedule with Dr. Celis. IDRIS Bradley Naomi 07/20/2025 12:58 PM Signed SPOKE W PT SHE WILL BE CALLING BACK SOON TO SCHEDULE. Georgette Gage 07/20/2025 1:47 PM Signed Scheduled with patient Allergies As of Date: 07/20/2025 (No Known Allergies) Date Reviewed: 07/19/2025 Reviewed by: Des Alva MD - Fully Assessed Reason for Visit: New Patient [172] Prescriptions as of 07/20/2025 - ascorbic acid (CHEWABLE VITAMIN C ORAL) Take by mouth. - VITAMIN E-400 ORAL Take by mouth. - cholecalciferol (VITAMIN D) 1,000 unit tab tablet Take 1,000 Units by mouth once daily. - iv contrast (will be provided with radiology test) MRI Brain Inject, intravenously, once for 1 dose.No IV access, insert saline lock prior to beginning of sedation, infusion, injection of imaging exam.Discontinue saline lock post exam. If Pt. has a central line or IVAD, may access for administration according to line specific nursing protocol.Once exam is complete flush line and de-access according to line specific nursing protocol in the MR contrast administration guidelines link - iv contrast (will be provided with radiology test) MRI Brain Localization Inject, intravenously, once for 1 dose.No IV access, insert saline lock prior to beginning of sedation, infusion, injection of imaging exam.Discontinue saline lock post exam. If Pt. has a central line or IVAD, may access for administration according to line specific nursing protocol.Once exam is complete flush line and de-access according to line specific nursing protocol in the MR contrast administration guidelines link - metoprolol succinate ER (TOPROL XL) 25 mg 24 hr tablet Take 1 tablet by mouth daily at bedtime. - dexAMETHasone (DECADRON) 2 mg tablet Take 1 tablet by mouth two times a day with meals for 14 days. Until follow up with Neurosurgery. Call them if you have not followed up yet and need more. - chlorthalidone (HYGROTON) 25 mg tablet Take 1 tablet by mouth once daily. - cetirizine (ZYRTEC) 10 mg tablet Take 1 tablet by mouth once daily. - calcium, elemental, tab Take 1 tablet by mouth once daily. - Lactobacillus acidophilus 10 billion cell cap Take once daily - multivitamins(DAILY VITAMIN TAB) Take one(1) tablet daily. Meds Comments as of 08/16/2013: Pt states she has albuterol but is not taking due to increase in HR. CM MA Problem List As Of Date 07/20/2025 Noted Resolved Essential hypertension, benign [I10] 03/22/2002 ALLERGIC RHINITIS NEC [J30.89] 11/23/2003 DIVERTICULOSIS OF COLON W/O BLEED [K57.30] TEAR MED MENISC KNEE-CURRENT [ELL7376] 11/14/2005 PES ANSERINUS TENDINITIS [FKE6481] 11/14/2005 LOC OSTEOARTH NOS-L/LEG [M17.10] 07/19/2008 Senile cataract, unspecified [H25.9] 01/10/2011 Pain in right foot [M79.671] 07/05/2015 Equinus deformity of foot [M21.6X9] 07/05/2015 Chest pain [R07.9] 10/14/2017 Carpal tunnel syndrome, right [G56.01] 04/03/2018 Hypertriglyceridemia [E78.1] 01/07/2019 Diverticulitis [K57.92] 03/05/2019 03/06/2019 Secondary hypertension [I15.9] 12/22/2020 Pneumonia due to COVID-19 virus [U07.1, J12.82] 09/18/2021 09/19/2021 Hypokalemia [E87.6] 09/18/2021 09/19/2021 Hyponatremia [E87.1] 09/18/2021 09/19/2021 Brain mass [G93.89] 07/11/2025 Lung mass [R91.8] 07/12/2025 Liver mass [R16.0] 07/12/2025 Adrenal mass (HCC) [E27.8] 07/12/2025 Cancer, metastatic to bone (HCC) [C79.51] 07/12/2025 Encounter Status:Closed by CLAUDETTE KELIN on 07/20/25 [facility]OVervin 07-19-2025 CNOV Office Visit (NEAGCL M) -- HERBERTCHRISTINA SANDOVAL ([id number]) 1955 F Date Time Provider Department 07/19/25 2:00 PM DES ALVA NEAGCLM During your visit today, we recorded the following information about you: Pulse Respiration Blood pressure Weight 63/minute 16/minute 168/79 69.2 kg Height 1.676 m Des Alva MD 07/19/2025 2:46 PM Signed NEUROSURGERY FOLLOW UP OFFICE NOTE Dr. Des Alva MD, FACS Date of visit: July 19, 2025 Patient Name: Mrs.Patricia Pérez Herbert Date of : 1955 Current Age: [age] year old Sex: female MRN/E# [id number] Last Office Visit: Hospital follow up CHIEF COMPLAINT: Patient presents with: Established Patient SUBJECTIVE: The patient presents as a hospital follow up with imaging (MRI B) for evaluation. This is a 69 year old female with a PMHx of HTN, IBS who was seen for consult at [facility] on 07/12/[address] Martell. Patient presented with complaints of dizziness, vertigo and ear pain. CT was completed and revealed several areas of vasogenic edema concerning for metastasis. MRI was completed and showed at least 6 enhancing lesions, thought likely to be metastatic in nature. Further workup showed a right sided lung mass, multiple liver lesions and an adrenal mass requiring continued work up. No emergent neurosurgical intervention was indicated. It was discussed that she would likely be a candidate for Gamma Knife Stereotactic Radiosurgery once a definitive diagnosis was made. Heme/onc was consulted. She underwent a lever biopsy on 07/13/25 with pathology demonstrating; FINAL DIAGNOSIS Liver, biopsies: - Metastatic squamous cell carcinoma. See comment. Recommendation was to follow up with Neurosurgery once discharged for plan of care. Today she states she is overall doing well. She denies headache, visual changes, speech deficits, seizure activity, motor or sensory deficits. She presents for image review, evaluation and plan of care. MEDICATIONS: Keppra: No Dexamethasone: 2 mg BID SYMPTOMS: None SURGICAL RISK: Smoker: Former - quit 11/10/1997 Diabetic: No Anticoagulants / Antiplatelets: ASA Occupation: [employer] PREVIOUS NEUROSURGERY: None ONCOLOGY TREATMENT TEAM: Primary Cancer: Metastatic squamous cell carcinoma Hematology/Oncology: Dr. Taras Martinez (consult at [facility]) PAIN EVALUATION No data found in the last 1 encounters. PAST MEDICAL HISTORY Diagnosis Date Diverticulosis of colon (without mention of hemorrhage) colonoscopy 08/14 Essential hypertension, benign IBS (irritable bowel syndrome) Pneumonia 08/2014 PAST SURGICAL HISTORY Procedure Laterality Date COLONOSCOPY 06/2010 DILATION AND CURETTAGE DXAND/THER NONOBSTETRIC Dilation AND curettage LAPAROSCOPY SURG CHOLECYSTECTOMY 09/2009 PAST SURGICAL HISTORY OF 7020-3183 bilat knee arthroscopic TONSILLECTOMY AND ADENOIDECTOMY Tonsil/adenoidectomy FAMILY HISTORY Problem Relation Age of Onset Ischemic Heart Disease Father age 46 Cancer Mother lung Ischemic Heart Disease Other nephew ALLERGIES No Known Allergies Current Outpatient Medications Medication Sig Dispense Refill ascorbic acid (CHEWABLE VITAMIN C ORAL) Take by mouth. VITAMIN E-400 ORAL Take by mouth. cholecalciferol (VITAMIN D) 1,000 unit tab tablet Take 1,000 Units by mouth once daily. metoprolol succinate ER (TOPROL XL) 25 mg 24 hr tablet Take 1 tablet by mouth daily at bedtime. 90 tablet dexAMETHasone (DECADRON) 2 mg tablet Take 1 tablet by mouth two times a day with meals for 14 days. Until follow up with Neurosurgery. Call them if you have not followed up yet and need more. 28 tablet 0 chlorthalidone (HYGROTON) 25 mg tablet Take 1 tablet by mouth once daily. 90 tablet 1 cetirizine (ZYRTEC) 10 mg tablet Take 1 tablet by mouth once daily. calcium, elemental, tab Take 1 tablet by mouth once daily. Lactobacillus acidophilus 10 billion cell cap Take once daily 0 multivitamins(DAILY VITAMIN TAB) Take one(1) tablet daily. 0 No current facility-administered medications for this visit. REVIEW OF SYSTEMS: Review of Systems Constitutional: Negative for chills, diaphoresis (Negative for night sweats.) and fever. HENT: Negative for ear discharge and rhinorrhea. Eyes: Negative for discharge. Respiratory: Negative for cough, shortness of breath and wheezing. Cardiovascular: Negative for chest pain, palpitations and leg swelling. Gastrointestinal: Negative for constipation, diarrhea, nausea and vomiting. Endocrine: Negative for cold intolerance and heat intolerance. Genitourinary: Negative for frequency. Negative for urinary incontinence and urinary retention. Musculoskeletal: Negative for back pain, joint swelling, myalgias and neck pain. Skin: Negative for rash (Negative for hives and skin lesions.). Allergic/Immunologic: Neg (more content not included)... Normal [facility] 07-19-2025 [facility] Telephone ([facility]) -- CHRISTINA MACIAS ([id number]) 1955 F Date Time Provider Department 07/19/25 HERNANDEZ ROSADO [facility] During your visit today, we recorded the following information about you: Hernandez Rosado RN 07/19/2025 4:05 PM Signed Date of 07/27/25--mask Khayyat/Liza squamous cell mets PRE tx MRI and CT [place] please schedule post ops Hernandez Rosado RN 07/21/2025 9:38 AM Signed Spoke with the pt and reviewed the GK plan for 07/27. Went over the plan for the day of GK, directions and where to report. Made sure to remind pt to bring any medications pt may need as they will be here the majority of the day. Additionally, let them know the GK team will call them the day before with arrival time. Pt verbalized understanding. Hernandez Rosado RN BSN Sustainability Coordinator Allergies As of Date: 07/19/2025 (No Known Allergies) Date Reviewed: 07/19/2025 Reviewed by: Des Alva MD - Fully Assessed Reason for Visit: GK scheduling [Other] Prescriptions as of 07/22/2025 - ascorbic acid (CHEWABLE VITAMIN C ORAL) Take by mouth. - VITAMIN E-400 ORAL Take by mouth. - cholecalciferol (VITAMIN D) 1,000 unit tab tablet Take 1,000 Units by mouth once daily. - iv contrast (will be provided with radiology test) MRI Brain Inject, intravenously, once for 1 dose.No IV access, insert saline lock prior to beginning of sedation, infusion, injection of imaging exam.Discontinue saline lock post exam. If Pt. has a central line or IVAD, may access for administration according to line specific nursing protocol.Once exam is complete flush line and de-access according to line specific nursing protocol in the MR contrast administration guidelines link - iv contrast (will be provided with radiology test) MRI Brain Localization Inject, intravenously, once for 1 dose.No IV access, insert saline lock prior to beginning of sedation, infusion, injection of imaging exam.Discontinue saline lock post exam. If Pt. has a central line or IVAD, may access for administration according to line specific nursing protocol.Once exam is complete flush line and de-access according to line specific nursing protocol in the MR contrast administration guidelines link - metoprolol succinate ER (TOPROL XL) 25 mg 24 hr tablet Take 1 tablet by mouth daily at bedtime. - dexAMETHasone (DECADRON) 2 mg tablet Take 1 tablet by mouth two times a day with meals for 14 days. Until follow up with Neurosurgery. Call them if you have not followed up yet and need more. - chlorthalidone (HYGROTON) 25 mg tablet Take 1 tablet by mouth once daily. - cetirizine (ZYRTEC) 10 mg tablet Take 1 tablet by mouth once daily. - calcium, elemental, tab Take 1 tablet by mouth once daily. - Lactobacillus acidophilus 10 billion cell cap Take once daily - multivitamins(DAILY VITAMIN TAB) Take one(1) tablet daily. Meds Comments as of 08/16/2013: Pt states she has albuterol but is not taking due to increase in HR. CM MA Problem List As Of Date 07/19/2025 Noted Resolved Essential hypertension, benign [I10] 03/22/2002 ALLERGIC RHINITIS NEC [J30.89] 11/23/2003 DIVERTICULOSIS OF COLON W/O BLEED [K57.30] TEAR MED MENISC KNEE-CURRENT [MZS5530] 11/14/2005 PES ANSERINUS TENDINITIS [TWC1900] 11/14/2005 LOC OSTEOARTH NOS-L/LEG [M17.10] 07/19/2008 Senile cataract, unspecified [H25.9] 01/10/2011 Pain in right foot [M79.671] 07/05/2015 Equinus deformity of foot [M21.6X9] 07/05/2015 Chest pain [R07.9] 10/14/2017 Carpal tunnel syndrome, right [G56.01] 04/03/2018 Hypertriglyceridemia [E78.1] 01/07/2019 Diverticulitis [K57.92] 03/05/2019 03/06/2019 Secondary hypertension [I15.9] 12/22/2020 Pneumonia due to COVID-19 virus [U07.1, J12.82] 09/18/2021 09/19/2021 Hypokalemia [E87.6] 09/18/2021 09/19/2021 Hyponatremia [E87.1] 09/18/2021 09/19/2021 Brain mass [G93.89] 07/11/2025 Lung mass [R91.8] 07/12/2025 Liver mass [R16.0] 07/12/2025 Adrenal mass (HCC) [E27.8] 07/12/2025 Cancer, metastatic to bone (HCC) [C79.51] 07/12/2025 Encounter Status:Closed by HERNANDEZ ROSADO on 07/22/25 [facility] 07-15-2025 [facility] Telephone ([facility]) -- CHRISTINA MACIAS ([id number]) 1955 F Date Time Provider Department 07/15/25 DES AVLA [facility] During your visit today, we recorded the following information about you: Joseph Maxwell 07/15/2025 9:33 AM Signed Attempted to contact patient to schedule an appt with Dr. Alva for eval for Gamma. No answer. Left a VM requesting a return phone call. Allergies As of Date: 07/15/2025 (No Known Allergies) Date Reviewed: 07/14/2025 Reviewed by: Mitzi Lewis, JAYDEN - Fully Assessed Prescriptions as of 07/15/2025 - metoprolol succinate ER (TOPROL XL) 25 mg 24 hr tablet Take 1 tablet by mouth daily at bedtime. - dexAMETHasone (DECADRON) 2 mg tablet Take 1 tablet by mouth two times a day with meals for 14 days. Until follow up with Neurosurgery. Call them if you have not followed up yet and need more. - amLODIPine (NORVASC) 5 mg tablet Take 1 tablet by mouth twice daily. - lisinopril (ZESTRIL, PRINIVIL) 20 mg tablet Take 1 tablet by mouth in the morning and 1 tablet in the evening - chlorthalidone (HYGROTON) 25 mg tablet Take [...] CM MA Problem List As Of Date 07/15/2025 Noted Resolved Essential hypertension, benign [I10] 03/22/2002 ALLERGIC RHINITIS NEC [J30.89] 11/23/2003 DIVERTICULOSIS OF COLON W/O BLEED [K57.30] TEAR MED MENISC KNEE-CURRENT [OHE5312] 11/14/2005 PES ANSERINUS TENDINITIS [GQI8009] 11/14/2005 LOC OSTEOARTH NOS-L/LEG [M17.10] 07/19/2008 Senile cataract, unspecified [H25.9] 01/10/2011 Pain in right foot [M79.671] 07/05/2015 Equinus deformity of foot [M21.6X9] 07/05/2015 Chest pain [R07.9] 10/14/2017 Carpal tunnel syndrome, right [G56.01] 04/03/2018 Hypertriglyceridemia [E78.1] 01/07/2019 Diverticulitis [K57.92] 03/05/2019 03/06/2019 Secondary hypertension [I15.9] 12/22/2020 Pneumonia due to COVID-19 virus [U07.1, J12.82] 09/18/2021 09/19/2021 Hypokalemia [E87.6] 09/18/2021 09/19/2021 Hyponatremia [E87.1] 09/18/2021 09/19/2021 Brain mass [G93.89] 07/11/2025 Lung mass [R91.8] 07/12/2025 Liver mass [R16.0] 07/12/2025 Adrenal mass (HCC) [E27.8] 07/12/2025 Cancer, metastatic to bone (HCC) [C79.51] 07/12/2025 Encounter Status:Closed by JOSEPH MAXWELL on 07/15/25 [facility] CNPN Telephone ([facility]) -- CHRISTINA MACIAS ([id number]) 1955 F Date Time Provider Department 07/15/25 DES ALVA [facility] During your visit today, we recorded the following information about you: Aretha Chand RN 07/15/2025 9:52 AM Signed Christina was seen in [facility] ED on 07/13/[address] Martell for dizziness and vertigo symptoms. CT showed several areas of vasogenic edema within the brain, concerning for metastasis. She had an MRI which showed 6 enhancing lesions, likely metastatic. None of these are large enough to warrant surgical resection. During her workup, she was found to have a right sided lung mass. This was likely the source of her metastatic disease. I spoke to this patient as she called in requesting a prescription for nausea medication. She advised that nausea has been an ongoing problem for her and that she has been given Zofran in the past from other doctors. I advised that since Dr. Alva had not seen her in the office, we would not be able to prescribe her medication, though she could reach out to the previous doctor who prescribed this for a refill. I attempted to have her stay on the phone for scheduling purposes since I saw Joseph had just attempted to call her but she stated that her could not drive and that she would be unable to follow up with [facility] given that she lives in [place]. I advised her that we could hold off on scheduling her if that was her wishes, and that she could contact the office at any time if she changes her mind and wishes to proceed. Per inpatient note from Dr. Martinez 07/14/2025, patient would follow up in [place] and a message was sent out to help her get scheduled. Aretha Chand RN Allergies As of Date: 07/15/2025 (No Known Allergies) Date Reviewed: 07/14/2025 Reviewed by: Mitzi Lewis RN - Fully Assessed Prescriptions as of 07/15/2025 - metoprolol succinate ER (TOPROL XL) 25 mg 24 hr tablet Take 1 tablet by mouth daily at bedtime. - dexAMETHasone (DECADRON) 2 mg tablet Take 1 tablet by mouth two times a day with meals for 14 days. Until follow up with Neurosurgery. Call them if you have not followed up yet and need more. - amLODIPine (NORVASC) 5 mg tablet Take 1 tablet by mouth twice daily. - lisinopril (ZESTRIL, PRINIVIL) 20 mg tablet Take 1 tablet by mouth in the morning and 1 tablet in the evening - chlorthalidone (HYGROTON) 25 mg tablet Take [...] CM MA Problem List As Of Date 07/15/2025 Noted Resolved Essential hypertension, benign [I10] 03/22/2002 ALLERGIC RHINITIS NEC [J30.89] 11/23/2003 DIVERTICULOSIS OF COLON W/O BLEED [K57.30] TEAR MED MENISC KNEE-CURRENT [HSM7459] 11/14/2005 PES ANSERINUS TENDINITIS [KWA1974] 11/14/2005 LOC OSTEOARTH NOS-L/LEG [M17.10] 07/19/2008 Senile cataract, unspecified [H25.9] 01/10/2011 Pain in right foot [M79.671] 07/05/2015 Equinus deformity of foot [M21.6X9] 07/05/2015 Chest pain [R07.9] 10/14/2017 Carpal tunnel syndrome, right [G56.01] 04/03/2018 Hypertriglyceridemia [E78.1] 01/07/2019 Diverticulitis [K57.92] 03/05/2019 03/06/2019 Secondary hypertension [I15.9] 12/22/2020 Pneumonia due to COVID-19 virus [U07.1, J12.82] 09/18/2021 09/19/2021 Hypokalemia [E87.6] 09/18/2021 09/19/2021 Hyponatremia [E87.1] 09/18/2021 09/19/2021 Brain mass [G93.89] 07/11/2025 Lung mass [R91.8] 07/12/2025 Liver mass [R16.0] 07/12/2025 Adrenal mass (HCC) [E27.8] 07/12/2025 Cancer, metastatic to bone (HCC) [C79.51] 07/12/2025 Encounter Status:Closed by ARETHA CHAND on 07/15/25 Normal [facility] Basic metabolic 2000 panelon 07-14-2025 Anion gap [Moles/Vol] 16 mmol/L High 8-15 [facility] Comment on above: Order Comment: Speci men Type: BLOOD SPECIMENOrdering Facility: [facility] Address: [address] [place] [address] Performed By: #### 1 9123-9, 14597-6 ####[facility] LABORATORYCLIA [id number] [place] [address] [place] Calcium [Mass/Vol] 9.8 mg/dL Normal 8.5-10.2 [facility] Comment on above: Order Comment: Speci men Type: BLOOD SPECIMENOrdering Facility: [facility] Address: [address] [place] [address] Performed By: #### 1 9123-9, 33305-9 ####[facility] LABORATORYCLIA [id number] [place] [address] [place] Chloride [Moles/Vol] 96 mmol/L Low 98-107 [facility] Comment on above: Order Comment: Speci men Type: BLOOD SPECIMENOrdering Facility: [facility] Address: [address] [place] [address] Performed By: #### 1 9123-9, 82675-8 ####[facility] LABORATORYCLIA [id number] [place] [address] [place] CO2 [Moles/Vol] 23 mmol/L Normal 22-30 [facility] Comment on above: Order Comment: Speci men Type: BLOOD SPECIMENOrdering Facility: [facility] Address: [address] [place] [address] Performed By: #### 1 9123-9, 08618-1 ####[facility] LABORATORYCLIA [id number] [place] [address] [place] Creatinine [Mass/Vol] 0.57 mg/dL Low 0.58-0.96 [facility] Comment on above: Order Comment: Speci men Type: BLOOD SPECIMENOrdering Facility: [facility] Address: [address] [place] [address] Performed By: #### 1 9123-9, 88673-1 ####[facility]ALSCLIA [id number] [address] eGFRcr SerPlBld CKD-EPI 2020 97 mL/min/1.73m??? Normal >=60 [facility] Comment on above: Order Comment: Speci men Type: BLOOD SPECIMENOrdering Facility: [facility] Address: [address] [place] [address] Result Comment: Princess mated Glomerular Filtration Rate (eGFR) is calculated using the 2020 CKD-EPI creatinine equation. This equation utilizes serum creatinine, sex, and age as parameters. The creatinine assay has traceable calibration to isotope dilution-mass spectrometry. Refer to KDIGO guidelines for clinical interpretation. In patients with unstable renal function, e.g. those with acute kidney injury, the eGFR may not accurately reflect actual GFR. Performed By: #### 1 9123-9, 91206-5 ####[facility] LABORATORYCLIA [id number] [address] [place] Glucose [Mass/Vol] 126 mg/dL High 74-99 [facility] Comment on above: Order Comment: Speci men Type: BLOOD SPECIMENOrdering Facility: [facility] Address: [address] [place] [address] Result Comment: The [place] Diabetes Association (ADA) provides guidance for cutoff [...] Standards of Medical Care in Diabetes 2016, [place] [employer]. Diabetes Care. 2016.39(Suppl 1). Performed By: #### 1 91239, 03294-5 ####[facility] LABORATORYCLIA [id number] [place] [address] [place] Potassium [Moles/Vol] 3.3 mmol/L Low 3.7-5.1 [facility] Comment on above: Order Comment: Speci men Type: BLOOD SPECIMENOrdering Facility: [facility] Address: [address] [place] [address] Performed By: #### 1 91, 56287-7 ####[facility] LABORATORYCLIA [id number] [place] [address] [place] Sodium [Moles/Vol] 135 mmol/L Low 136-144 [facility] Comment on above: Order Comment: Speci men Type: BLOOD SPECIMENOrdering Facility: [facility] Address: [address] [place] [address] Performed By: #### 1 9123-07, 09981-0 ####[facility] LABORATORYCLIA [id number] [place] [address] [place] Urea nitrogen [Mass/Vol] 27 mg/dL High 7-21 [facility] Comment on above: Order Comment: Speci men Type: BLOOD SPECIMENOrdering Facility: [facility] Address: [address] [place] [address] Performed By: #### 1 9123, 82414-0 ####[facility] LABORATORYCLIA [id number] [address] OF [facility] CBC panel Auto (Bld)on 07-14 Erythrocyte distribution width (RBC) [Ratio] 12.9 % Normal 11.5-15.0 [facility] Comment on above: Order Comment: Speci men Type: BLOOD SPECIMENOrdering Facility: [facility] Address: [address] [place] [address] Performed By: #### 5 8410-2 ####[facility] LABORATORYCLIA [id number] [address] Hematocrit (Bld) [Volume fraction] 42.4 % Normal 36.0-46.0 [facility] Comment on above: Order Comment: Speci men Type: BLOOD SPECIMENOrdering Facility: [facility] Address: [address] [place] [address] Performed By: #### 5 8410-2 ####[facility] LABORATORYCLIA [id number] [address] Hemoglobin (Bld) [Mass/Vol] 14.3 g/dL Normal 11.5-15.5 [facility] Comment on above: Order Comment: Speci men Type: BLOOD SPECIMENOrdering Facility: [facility] Address: [address] [place] [address] Performed By: #### 5 8410-2 ####[facility] LABORATORYCLIA [id number] [address] [facility] MCH (RBC) [Entitic mass] 27.7 pg Normal 26.0-34.0 [facility] Comment on above: Order Comment: Speci men Type: BLOOD SPECIMENOrdering Facility: [facility] Address: [address] [place] [address] Performed By: #### 5 8410-2 ####[facility] LABORATORYCLIA [id number] [address] [facility] MCHC (RBC) [Mass/Vol] 33.7 g/dL Normal 30.5-36.0 [facility] Comment on above: Order Comment: Speci men Type: BLOOD SPECIMENOrdering Facility: [facility] Address: [address] [place] [address] Performed By: #### 5 8410-2 ####[facility] LABORATORYCLIA [id number] [address] MCV (RBC) [Entitic vol] 82.0 fL Normal 80.0-100.0 [facility] Comment on above: Order Comment: Speci men Type: BLOOD SPECIMENOrdering Facility: [facility] Address: [address] [place] [address] Performed By: #### 5 8410-2 ####[facility] LABORATORYCLIA [id number] [address] Nucleated RBC (Bld) [#/Vol] 10*3/uL Normal <0.01 [facility] Comment on above: Order Comment: Speci men Type: BLOOD SPECIMENOrdering Facility: [facility] Address: [address] [place] [address] Performed By: #### 5 8410-2 ####[facility] LABORATORYCLIA [id number] [address] [facility] Platelet mean volume (Bld) [Entitic vol] 10.2 fL Normal 9.0-12.7 [facility] Comment on above: Order Comment: Speci men Type: BLOOD SPECIMENOrdering Facility: [facility] Address: [address] [place] [address] Performed By: #### 5 8410-2 ####[facility] LABORATORYCLIA [id number] [address] [place] Platelets (Bld) [#/Vol] 338 10*3/uL Normal 150-400 [facility] Comment on above: Order Comment: Speci men Type: BLOOD SPECIMENOrdering Facility: [facility] Address: [address] [place] [address] Performed By: #### 5 8410-2 ####[facility] LABORATORYCLIA [id number] [address] OF [place] RBC (Bld) [#/Vol] 5.17 10*6/uL Normal 3.90-5.20 [facility] Comment on above: Order Comment: Speci men Type: BLOOD SPECIMENOrdering Facility: [facility] Address: [address] [place], [place] [address] Performed By: #### 5 8410-2 ####[facility] LABORATORYCLIA [id number] [address] WBC (Bld) [#/Vol] 16.69 10*3/uL High 3.70-11.00 [facility] Comment on above: Order Comment: Speci men Type: BLOOD SPECIMENOrdering Facility: [facility] Address: [address] [place] [address] Performed By: #### 5 8410-2 ####[facility] LABORATORYCLIA [id number] [address] CNDSon 07-14-2025 CN HNO ID: [id number] Author: ARSHEED GARCIA DO Service: Hospital Medicine Author Type: Physician Type: Discharge Summary Filed: 07/14/2025 15:01 Note Text: DISCHARGE SUMMARY PATIENT NAME: Christina Macias Code Status: Full Code Highest Readmission Risk Score: 12 The 30 day readmissions risk score is derived from an internally validated risk model which evaluates patient level characteristics, utilization history, medication orders and lab results up until the day of discharge. Patients with a score of 39 or above are considered highest risk for readmission. Specific patient level drivers will be listed at the bottom of the summary. Admission Information Admission Information ADMIT DATE: 07/11/2025 DISCHARGE DATE: 07/14/2025 MY DOCTORS AND MEDICAL TEAM: My Main Hospital Doctor: Rasheed Garcia DO Primary Care Provider: Andrew Billingsley MD My Medical Team Members: Treatment Team: Attending Provider: Rasheed Garcia DO Consulting: Lauri Martell MD Consulting: Taras Martinez MD Primary Service: [facility] MY CONDITION AT DISCHARGE: Stable REASON I WAS IN THE HOSPITAL: imbalance SUMMARY OF WHAT HAPPENED WHILE I WAS IN THE HOSPITAL: Patient was admitted for imbalance. 69 yo F presenting with imbalance, found to have multiple brain lesions concerning for metastatic disease on imaging. MRI brain showing numerous peripherally enhancing brain lesions with surrounding vasogenic edema. CT A/P and chest showing RUL lung mass with obstruction of R upper lobe bronchus, liver lesions concerning for mets, enlarging R adrenal mass, bone destruction at T11 and lytic lesion at L3. NSGY and Oncology consulted Underwent liver biopsy on 07/13. Today she does not have significant pain, bruising, or signs of hematoma. HANDH stable. She can complete antibiotic course she already had at home for sinusitis. Low potassium in setting of chlorthalidone use, would benefit from supplement. Neurosurgery recommends steroids on discharge. Dexamethasone 2mg PO BID until Neurosurgery follow up. She does not feel she needs outpatient/home physical/occupational therapy at this time. OTHER PROBLEMS/DIAGNOSIS: Principal Problem: Brain mass Active Problems: Lung mass Liver mass Adrenal mass (HCC) Cancer, metastatic to bone (HCC) Resolved Problems: * No resolved hospital problems. * OPERATIONS PERFORMED WHILE IN THE HOSPITAL: None IMPORTANT TEST/PROCEDURES: Biopsy MRI TEST RESULTS NOT AVAILABLE AT THIS TIME: Follow up Dr. Mcqueen biopsy results. Discharge Disposition Home/Self Care Activity When You Leave the Hospital Activity Resume pre-hospital activity Diet Instructions Diet Resume pre-hospital diet Follow Up Appointments Follow-up Appointment Hospital follow up When: In 1 week Andrew Billingsley MD [phone] [address] [facility] [address] [facility] [address] PCP Requested Referral Follow-up Appointment Biopsy results When: In 1 week Taras Martinez MD [phone] [place] [facility] [address] PCP Requested Referral Follow-up Appointment Follow up suspected brain mets, gamma knife? When: In 1 week Lauri Martell MD [phone] [address] [facility] [address] PCP Requested Referral Additional Provider to Provider Information: Treatment Team: Attending Provider: Rasheed Garcia DO Consulting: Lauri Martell MD Consulting: Taras Martinez MD Primary Service: [facility] Active Hospital Problems Diagnosis POA Brain mass Yes Lung mass Unknown Liver mass Unknown Adrenal mass (HCC) Unknown Cancer, metastatic to bone (HCC) Unknown Resolved Hospital Problems No resolved problems to display. FOLLOW-UP APPOINTMENTS ALREADY SCHEDULED WITH A [facility] PROVIDER: No future appointments. ALLERGIES No Known Allergies DISCHARGE MEDICATION: Medication List START taking these medications dexAMETHasone 2 mg tablet Commonly known as: DECADRON Take 1 tablet by mouth two times a day with meals for 14 days. Until follow up with Neurosurgery. Call them if you have not followed up yet and need more. CHANGE how you take these medications metoprolol succinate ER 25 mg 24 hr tablet Commonly known as: TOPROL XL Take 1 tablet by mouth daily at bedtime. What changed: medication strength how much to take when to take this CONTINUE taking these medications amLODIPine 5 mg tablet Commonly known as: NORVASC Take 1 tablet by mouth twice daily. BABY ASPIRIN 81 mg chewable tablet Generic drug: aspirin calcium (elemental) Tab cetirizine 10 mg tablet Commonly known as: ZYRTEC Take 1 tablet by mouth once daily. chlorthalidone 25 mg tablet Commonly known as: HYGROTON Take 1 tablet by mouth once daily. DAILY VITAMIN tablet Generic drug: multivitamin Lactobacillus acidophilus 10 billion cell Cap lisinopril 20 mg tablet (more content not included)... Normal [facility] Magnesium SerPl-mCncon 07-14 Magnesium [Mass/Vol] 1.8 mg/dL Normal 1.7-2.3 [facility] Comment on above: Order Comment: Michelle ramírez Type: BLOOD SPECIMENOrdering Facility: [facility] Address: [address] [place] [address] Performed By: #### 1 9123-9, 76723-9 ####[facility] LABORATORYCLIA [id number] [address] [place] POTASSIUMon 07-14-2025 Potassium [Moles/Vol] 3.6 mmol/L Low 3.7-5.1 [facility] Comment on above: Order Comment: Michelle ramírez Type: BLOOD SPECIMENOrdering Facility: [facility] Address: [address] [place] [address] Performed By: #### K 1 ####[facility] LABORATORYCLIA [id number] [place] [address] [place] Urinalysis complete panel (U )on 09-04-2025 Bilirubin Ql (U) Negative Normal Negative [facility] Comment on above: Order Comment: Speci men Type: URINE SPECIMENOrdering Facility: [facility] Address: [address] [place] [address] Performed By: #### 2 4356-8 ####[facility] LABORATORYCLIA [id number] [address] [place] Clarity (Unsp spec) Cloudy Abnormal Clear [facility] Comment on above: Order Comment: Speci men Type: URINE SPECIMENOrdering Facility: [facility] Address: [address] [place] [address] Performed By: #### 2 4356-8 ####[facility] LABORATORYCLIA [id number] [address] STATES OF [facility] Color (U) Yellow Normal Yellow [facility] Comment on above: Order Comment: Speci men Type: URINE SPECIMENOrdering Facility: [facility] Address: [address] [place] [address] Performed By: #### 2 4356-8 ####[facility] LABORATORYCLIA [id number] [address] [place] Epithelial cells LM.HPF (Urine sed) [#/Area] Few Abnormal None Seen [facility] Comment on above: Order Comment: Speci men Type: URINE SPECIMENOrdering Facility: [facility] Address: [address] [place] [address] Performed By: #### 2 4356-8 ####[facility] LABORATORYCLIA [id number] [address] [place] Glucose Test strip (U) [Mass/Vol] Negative Normal Trace, Negative [facility] Comment on above: Order Comment: Speci men Type: URINE SPECIMENOrdering Facility: [facility] Address: [address] [place] [address] Performed By: #### 2 4356-8 ####[facility] LABORATORYCLIA [id number] [address] [place] Hemoglobin Ql (U) Negative Normal Negative, Trace [facility] Comment on above: Order Comment: Speci men Type: URINE SPECIMENOrdering Facility: [facility] Address: [address] [place] [address] Performed By: #### 2 4356-8 ####[facility] LABORATORYCLIA [id number] [address] Ketones Ql (U) 2+ Abnormal Negative, Trace [facility] Comment on above: Order Comment: Speci men Type: URINE SPECIMENOrdering Facility: [facility] Address: [address] [place] [address] Performed By: #### 2 4356-8 ####[facility] LABORATORYCLIA [id number] [address] Leukocyte esterase Test strip Ql (U) 75 Nikolay/uL Abnormal Negative, 25 Nikolay/uL [facility] Comment on above: Order Comment: Speci men Type: URINE SPECIMENOrdering Facility: [facility] Address: [address] [place] [address] Performed By: #### 2 4356-8 ####[facility] LABORATORYCLIA [id number] [address] [facility] Nitrite Ql (U) Negative Normal Negative [facility] Comment on above: Order Comment: Speci men Type: URINE SPECIMENOrdering Facility: [facility] Address: [address] [place] [address] Performed By: #### 2 4356-8 ####[facility] LABORATORYCLIA [id number] [address] [place] pH (U) 6.5 [pH] Normal 5.0-8.0 [facility] Comment on above: Order Comment: Speci men Type: URINE SPECIMENOrdering Facility: [facility] Address: [address] [place] [address] Performed By: #### 2 4356-8 ####[facility]ORATORYCLIA [id number] [address] [place] Protein (U) [Mass/Vol] Trace Normal Trace , Negative [facility] Comment on above: Order Comment: Speci men Type: URINE SPECIMENOrdering Facility: [facility] Address: [address] [place] [address] Performed By: #### 2 4356-8 ####[facility] LABORATORYCLIA [id number] [address] RBC LM.HPF (Urine sed) [#/Area] 0-3 /HPF Normal 0-3 /HPF [facility] Comment on above: Order Comment: Speci men Type: URINE SPECIMENOrdering Facility: [facility] Address: [address] [place] [address] Performed By: #### 2 4356-8 ####[facility] LABORATORYCLIA [id number] [address] Specific gravity (U) [Rel density] 1.025 Normal 1.005-1.030 [facility] Comment on above: Order Comment: Speci men Type: URINE SPECIMENOrdering Facility: [facility] Address: [address] [place] [address] Performed By: #### 2 4356-8 ####[facility] LABORATORYCLIA [id number] [address] Urobilinogen Ql (U) Normal Normal Normal [facility] Comment on above: Order Comment: Speci men Type: URINE SPECIMENOrdering Facility: [facility] Address: [address] [place] [address] Performed By: #### 2 4356-8 ####[facility] LABORATORYCLIA [id number] [address] WBC LM.HPF (Urine sed) [#/Area] 6-10 /HPF Abnormal 0-5 /HPF [facility] Comment on above: Order Comment: Speci men Type: URINE SPECIMENOrdering Facility: [facility] Address: [address] [place] [address] Performed By: #### 2 4356-8 ####[facility] LABORATORYCLIA [id number] [address] [place] BRIEF OP NOTon 07-13-2025 BRIEF OP NOT HNO ID: [id number] Author: RASHEED LAMA DO Service: Interventional Radiology Author Type: Physician Type: Brief Op Note Filed: 07/13/2025 16:33 Note Text: BRIEF OPERATIVE / PROCEDURE NOTE LOG ID: [id number] SURGERY/PROCEDURE DATE: 07/13/2025 INCISION/PROCEDURE START TIME: 3:30 PM INCISION CLOSE/PROCEDURE END TIME: 3:39 PM SURGEON(S)/PROCEDURALIST(S ) AND FIELD ARTILLERY CANNONEER(S): Surgeons and Role: * Rasheed Lama, - Primary No Additional Staff SURGERY/PROCEDURE(S): Liver biopsy ANESTHESIA: Local FINDINGS: Biopsy of inferior right lobe liver mass performed with 4 passes of an 18G core needle. Please refer to full dictated radiology report for further details. ESTIMATED BLOOD LOSS: <5 mls SPECIMENS: Cores sent to pathology Intraoperative Complication/Events: None PRE-OP/PRE-PROCEDURE DIAGNOSIS: Liver masses POST-OP/POST-PROCEDURE DIAGNOSIS: Same as Preop SIGNATURE: Rasheed Lama DO PATIENT NAME: Christina Macias DATE: July 13, 2025 TIME: 4:32 PM Normal [facility] Basic metabolic 2000 panelon 07-13-2025 Anion gap [Moles/Vol] 14 mmol/L Normal 8-15 [facility] Comment on above: Order Comment: Speci men Type: BLOOD SPECIMENOrdering Facility: [facility] Address: [address] [place] [address] Performed By: #### 2 4321-2 ####[facility] LABORATORYCLIA [id number] [place] [address] [place] Calcium [Mass/Vol] 9.7 mg/dL Normal 8.5-10.2 [facility] Comment on above: Order Comment: Speci men Type: BLOOD SPECIMENOrdering Facility: [facility] Address: [address] [place] [address] Performed By: #### 2 4321-2 ####[facility] LABORATORYCLIA [id number] [place] [address] [place] Chloride [Moles/Vol] 93 mmol/L Low 98-107 [facility] Comment on above: Order Comment: Speci men Type: BLOOD SPECIMENOrdering Facility: [facility] Address: [address] [place] [address] Performed By: #### 2 4321-2 ####[facility] LABORATORYCLIA [id number] [place] [address] [place] CO2 [Moles/Vol] 27 mmol/L Normal 22-30 [facility] Comment on above: Order Comment: Speci men Type: BLOOD SPECIMENOrdering Facility: [facility] Address: [address] [place] [address] Performed By: #### 2 4321-2 ####[facility] LABORATORYCLIA [id number] [address] [place] Creatinine [Mass/Vol] 0.52 mg/dL Low 0.58-0.96 [facility] Comment on above: Order Comment: Speci men Type: BLOOD SPECIMENOrdering Facility: [facility] Address: [address] [place] [address] Performed By: #### 2 4321-2 ####[facility] LABORATORYCLIA [id number] [address] [place] eGFRcr SerPlBld CKD-EPI 2020 99 mL/min/1.73m??? Normal >=60 [facility] Comment on above: Order Comment: Speci men Type: BLOOD SPECIMENOrdering Facility: [facility] Address: [address] [place] [address] Result Comment: Princess mated Glomerular Filtration Rate (eGFR) is calculated using the 2020 CKD-EPI creatinine equation. This equation utilizes serum creatinine, sex, and age as parameters. The creatinine assay has traceable calibration to isotope dilution-mass spectrometry. Refer to KDIGO guidelines for clinical interpretation. In patients with unstable renal function, e.g. those with acute kidney injury, the eGFR may not accurately reflect actual GFR. Performed By: #### 2 4321-2 ####[facility] LABORATORYCLIA [id number] [place] [address] [place] Glucose [Mass/Vol] 141 mg/dL High 74-99 [facility] Comment on above: Order Comment: Speci men Type: BLOOD SPECIMENOrdering Facility: [facility] Address: [address] [place] [address] Result Comment: The [place] Diabetes [employer] (ADA) provides guidance for cutoff [...] Standards of Medical Care in Diabetes 2016, [place] [employer]. Diabetes Care. 2016.39(Suppl 1). Performed By: #### 2 4321-2 ####[facility] LABORATORYCLIA [id number] [place] [address] [place] Potassium [Moles/Vol] 3.2 mmol/L Low 3.7-5.1 [facility] Comment on above: Order Comment: Nelsoni men Type: BLOOD SPECIMENOrdering Facility: [facility] Address: [address] [place] [address] Performed By: #### 2 4321-2 ####[facility] LABORATORYCLIA [id number] [place] [address] [place] Sodium [Moles/Vol] 134 mmol/L Low 136-144 [facility] Comment on above: Order Comment: Speci men Type: BLOOD SPECIMENOrdering Facility: [facility] Address: [address] [place] [address] Performed By: #### 2 4321-2 ####[facility] LABORATORYCLIA [id number] [place] [address] [place] Urea nitrogen [Mass/Vol] 18 mg/dL Normal 7-21 [facility] Comment on above: Order Comment: Speci men Type: BLOOD SPECIMENOrdering Facility: [facility] Address: [address] [place] [address] Performed By: #### 2 4321-2 ####[facility] LABORATORYCLIA [id number] [address] CBC panel Auto (Bld)on 07-13 Erythrocyte distribution width (RBC) [Ratio] 13.0 % Normal 11.5-15.0 [facility] Comment on above: Order Comment: Speci men Type: BLOOD SPECIMENOrdering Facility: [facility] Address: [address] [place] [address] Performed By: #### 5 8410-2 ####[facility] LABORATORYCLIA [id number] [address] Hematocrit (Bld) [Volume fraction] 41.4 % Normal 36.0-46.0 [facility] Comment on above: Order Comment: Speci men Type: BLOOD SPECIMENOrdering Facility: [facility] Address: [address] [place] [address] Performed By: #### 5 8410-2 ####[facility] LABORATORYCLIA [id number] [address] Hemoglobin (Bld) [Mass/Vol] 14.3 g/dL Normal 11.5-15.5 [facility] Comment on above: Order Comment: Speci men Type: BLOOD SPECIMENOrdering Facility: [facility] Address: [address] [place] [address] Performed By: #### 5 8410-2 ####[facility] LABORATORYCLIA [id number] [address] MCH (RBC) [Entitic mass] 28.0 pg Normal 26.0-34.0 [facility] Comment on above: Order Comment: Speci men Type: BLOOD SPECIMENOrdering Facility: [facility] Address: [address] [place] [address] Performed By: #### 5 8410-2 ####[facility] LABORATORYCLIA [id number] [address] MCHC (RBC) [Mass/Vol] 34.5 g/dL Normal 30.5-36.0 [facility] Comment on above: Order Comment: Speci men Type: BLOOD SPECIMENOrdering Facility: [facility] Address: [address] [place] [address] Performed By: #### 5 8410-2 ####[facility] LABORATORYCLIA [id number] [address] [place] MCV (RBC) [Entitic vol] 81.0 fL Normal 80.0-100.0 [facility] Comment on above: Order Comment: Speci men Type: BLOOD SPECIMENOrdering Facility: [facility] Address: [address] [place] [address] Performed By: #### 5 8410-2 ####[facility] LABORATORYCLIA [id number] [address] [place] Nucleated RBC (Bld) [#/Vol] 10*3/uL Normal <0.01 [facility] Comment on above: Order Comment: Speci men Type: BLOOD SPECIMENOrdering Facility: [facility] Address: [address] [place] [address] Performed By: #### 5 8410-2 ####[facility] LABORATORYCLIA [id number] [address] [place] Platelet mean volume (Bld) [Entitic vol] 10.3 fL Normal 9.0-12.7 [facility] Comment on above: Order Comment: Speci men Type: BLOOD SPECIMENOrdering Facility: [facility] Address: [address] [place] [address] Performed By: #### 5 8410-2 ####[facility] LABORATORYCLIA [id number] [place] [address] [place] Platelets (Bld) [#/Vol] 330 10*3/uL Normal 150-400 [facility] Comment on above: Order Comment: Speci men Type: BLOOD SPECIMENOrdering Facility: [facility] Address: [address] [place] [address] Performed By: #### 5 8410-2 ####[facility] LABORATORYCLIA [id number] [address] RBC (Bld) [#/Vol] 5.11 10*6/uL Normal 3.90-5.20 [facility] Comment on above: Order Comment: Speci men Type: BLOOD SPECIMENOrdering Facility: [facility] Address: [address] [place] [address] Performed By: #### 5 8410-2 ####[facility] LABORATORYCLIA [id number] [address] WBC (Bld) [#/Vol] 17.81 10*3/uL High 3.70-11.00 [facility] Comment on above: Order Comment: Speci men Type: BLOOD SPECIMENOrdering Facility: [facility] Address: [address] [place] [address] Performed By: #### 5 8410-2 ####[facility] LABORATORYCLIA [id number] [address] CONSULT PROGon 07-13-2025 CONSULT PROG HNO ID: [id number] Author: LUIS LANG APRN.[employer]SEMBLER Service: Neurosurgery Author Type: Nurse Practitioner Type: Consult Progress Note Filed: 07/13/2025 11:15 Note Text: Neurosurgery Progress Note SERVICE DATE: 07/13/2025 SUBJECTIVE: NAEON. Patient denies headache, dizziness, visual changes or n/v. Pleasant. Endorses sleeping all night. OBJECTIVE: Vitals: Temp (24hrs), Av.6 ?C (97.8 ?F), Min:36.4 ?C (97.5 ?F), Max:36.7 ?C (98.1 ?F) BP 144/73 Pulse 75 Temp 36.4 ?C (97.5 ?F) (Oral) Resp 18 Ht 167.6 cm (5' 6) Wt 68.3 kg (150 lb 9.6 oz) SpO2 95% BMI 24.31 kg/m? O2 Therapy: Room Air IANDO: Date 07/12/25699 - 07/13/2565807/13/25699 - 07/14/25 0659 Shift 3995-4837 3865-3833 3910-6321 24 Hour Total 7225-7090 6796-9633 5210-4760 24 Hour Total INTAKE PO 100 100 PO 100 100 Shift Total 100 100 OUTPUT Urine Urine Not Saved. 2 x 2 x Shift Total Weight (kg) 68.3 68.3 68.3 68.3 68.3 68.3 68.3 68.3 MEDICATIONS Current Facility-Administered Medications Medication Dose Route Frequency iv contrast (radiology procedure) INTRAVENOUS DIRECTED PRN metoprolol succinate ER 25 mg tab(s) (TOPROL XL) 25 mg ORAL AT BEDTIME hydrALAZINE 10 mg injection (APRESOLINE) 10 mg INTRAVENOUS q 6 H PRN cefTRIAXone iv piggyback 1 g in dextrose (iso-osmotic) 50 mL (ROCEPHIN) 1 g INTRAVENOUS q 24 H NaCl 0.9% iv flush bag 20 mL INTRAVENOUS PRN chlorthalidone 25 mg tab(s) (HYGROTON) 25 mg ORAL DAILY lactobacillus rhamnosus 10 billion cell (CULTURELLE) capsule 1 capsule ORAL DAILY acetaminophen 650 mg tab(s) (TYLENOL) 650 mg ORAL q 6 H PRN ondansetron (PF) 4 mg injection (ZOFRAN) 4 mg INTRAVENOUS q 12 H PRN Labs: Recent Labs 07/13/25 0927 07/13/25 0915 07/12/25 0652 NA -- 134* 134* K -- 3.2* 3.4* CHLOR -- 93* 96* CO2 -- 27 26 BUN -- 18 14 CREAT -- 0.52* 0.50* GLUC -- 141* 143* ANION -- 14 12 CA -- 9.7 9.8 MG -- -- 1.7 ALB -- -- 4.1 AST -- -- 12* ALT -- -- 9 ALKPHOS -- -- 91 TBILI -- -- 0.7 WBC -- 17.81* 16.42* HB -- 14.3 14.2 HCT -- 41.4 42.0 PLT -- 330 341 INR 1.1 -- -- Exam: GENERAL: Awake and alert; NAD; cooperative; pleasant NEURO: Orientedx3; speech clear and fluent; VAZQUEZ; no arm drift STRENGTH: 5/5 throughout HEENT: Normocephalic; atraumatic; perrl/eomi; no facial droop LUNGS: Unlabored breathing CARDIAC: Rate and rhythm as above ABDOMEN: Soft, non-tender, non-distended EXTREMITIES: No deformities, No edema SKIN: Skin color normal; Temperature normal; no rashes or lesions ASSESSMENT AND PLAN: Active Hospital Problems Diagnosis Date Noted Brain mass 07/11/2025 Lung mass 07/12/2025 Liver mass 07/12/2025 Adrenal mass (HCC) 07/12/2025 Cancer, metastatic to bone (HCC) 07/12/2025 Ms. Macias is a 69 y/o female with hx of hypertension who presented with c/o ear pain, malaise and appetite loss. CT head demonstrated multiple brain lesions concerning for mets. -neuro as above- intact -plan for liver biopsy today with IR -hem/onc following -PT/OT eval and TX recs for home PT -NPO for procedure -possible GKRS -will discuss with Dr. Martell Parts of this note may have been copied from one of my previous notes and remain pertinent. The documentation has been reviewed and edited as necessary to support the clinical decision making for today's visit. Plan of Care discussed with: Patient and RN SIGNATURE: Luis Lnag APRN.CNP PATIENT NAME: Christina Macias DATE: July 13, 2025 TIME: 08:45 AM Pager: [phone] Normal [facility] PD-L1 22C3on 07-13-2025 AP BIOMARKER DISCLAIMER Normal [facility] Comment on above: Order Comment: Speci men Type: TISSUE SPECIMENOrdering Facility: [facility] Address: [address] [place] [address] Result Comment: Laboratory Developed Test (LDT) Disclaimer: Performance characteristics of immunohistochemical, immunofluorescent and chromogenic in-situ hybridization tests have been determined by the performing laboratory within [facility]???s Lee V[facility]quez Pathology and Laboratory Medicine Department ([facility], [facility], [facility], [facility], [facility], [facility], or [facility]) in a manner consistent with CLIA requirements. One or more of these tests have not been cleared or approved by the FDA. [facility] is regulated under CLIA as qualified to perform high-complexity testing. These tests are used for clinical purposes. They should not be regarded as investigational or for research. Positive and negative controls stain appropriately. Performed By: #### L [id number] ####[facility] LABIA [id number] [address] [place] AP BLOCK ID A2 Normal [facility] Comment on above: Order Comment: Speci men Type: TISSUE SPECIMENOrdering Facility: [facility] Address: [address] [place] [address] Performed By: #### L [id number] ####[facility] [id number] [address] BIOMARKER INTERPRETATION COMMENT AND REFERENCE RANGE Normal [facility] Comment on above: Order Comment: Speci men Type: TISSUE SPECIMENOrdering Facility: [facility] Address: [address] [place] [address] Result Comment: Inte rpretation standard: TPS: The Tumor Proportion Score is the percentage of the viable tumor cells demonstrating partial or completed membrane staining of any intensity. Reference Range for PDL1 expression in Non-Small Cell Lung Cancer (NSCLC) TPS less than 1%: Negative TPS between 1 - 49%: Low Positive TPS greater than 50%: High Positive The PDL1 expression of Non-Small Cell Lung Cancer (NSCLC) is interpreted to determine if the patient should be considered for treatment with either pembrolizumab (KEYTRUDA) or cemiplimab-rwlc (LIBTAYO). Please refer to the Product label for additional information. KEYTRUDA - (https://www.keytrudahcp.com/prescribing-information/) LIBTAYO - (https://[email or web address].[email or web address]/sites/default/files/Libtayo_FPI.pdf) Performed By: #### L [id number] ####[facility] [id number] [address] BIOMARKER METHOD Immunohistochemistry was performed on formalin fixed paraffin-embedded tissue using the mouse monoclonal antibody 22C3 ([employer] [place], [place]) followed by ultrasensitive bright field detection (Optiview with amplification [[employer] SystemsP[facility]]). [facility] Comment on above: Order Comment: Speci men Type: TISSUE SPECIMENOrdering Facility: [facility] Address: [address] [place] [address] Performed By: #### L [id number] ####[facility] LABCLIA [id number] [address] [place] [address] [place] [facility] CASE NUMBER PD-[id number] [facility] Comment on above: Order Comment: Speci men Type: TISSUE SPECIMENOrdering Facility: [facility] Address: [address] [place] [address] Performed By: #### L [id number] ####[facility] LABCLIA [id number] [address] [place] [address] [place] FINAL PERFORMING LAB Normal [facility] Comment on above: Order Comment: Speci men Type: TISSUE SPECIMENOrdering Facility: [facility] Address: [address] [place], [place] [address] Result Comment: Diag nostic interpretation performed at: [facility], [address] [place] [address] [place] [address] CLIA# [id number] Harness Repairer: Ti Rushing MD Electronically signed out by: Omkar Rock MD Performed By: #### L [id number] ####[facility] LABCLIA [id number] [address] [place] [address] [place] FIXATIVE Normal [facility] Comment on above: Order Comment: Speci men Type: TISSUE SPECIMENOrdering Facility: [facility] Address: [address] [place] [address] Performed By: #### L [id number] ####[facility] LABCLIA [id number] [address] [place] [address] [place] PD-L1 22C3 TPS (LUNG) INTERPRETATION Positive Abnormal [facility] Comment on above: Order Comment: Speci men Type: TISSUE SPECIMENOrdering Facility: [facility] Address: [address] [place] [address] Performed By: #### L [id number] ####[facility] LABCLIA [id number] [address] [place] PD-L1 TUMOR TYPE Other (See Comment) Normal [facility] Comment on above: Order Comment: Speci men Type: TISSUE SPECIMENOrdering Facility: [facility] Address: [address] [place] [address] Result Comment: See original report Performed By: #### L [id number] ####[facility] LABIA [id number] [place] [address] [place] TUMOR PROPORTION SCORE (TPS) 98 Normal [facility] Comment on above: Order Comment: Speci men Type: TISSUE SPECIMENOrdering Facility: [facility] Address: [address] [place] [address] Performed By: #### L [id number] ####[facility] [id number] [place] [address] [place] PT panel Coag (PPP)on 2024 INR Coag (PPP) [Relative time] 1.1 {INR} Normal 0.9-1.3 [facility] Comment on above: Order Comment: Speci men Type: BLOOD SPECIMENOrdering Facility: [facility] Address: [address] [place] [address] Result Comment: Kierra min K Antagonist (VKA) Therapeutic Range: INR 2 to 3 (Target INR of 2.5) Note: For patients treated with VKA drugs, such as warfarin, the [place] [employer] 2012 Guideline recommends [...] Chest 2012, 141:7S-47S Maikel RA, et al. [facility] 2017, 70: 252-289 Performed By: #### 3 4528-0 ####[facility] LABORATORYCLIA [id number] [address] [place] [facility] PT Coag (PPP) [Time] 11.7 s Normal 9.7-13.0 [facility] Comment on above: Order Comment: Speci men Type: BLOOD SPECIMENOrdering Facility: [facility] Address: [address] [place] [address] Performed By: #### 3 4528-0 ####[facility] [id number] [address] Pathology biopsy report Ananth (Tiss)on 07-13-2025 AP DISCLAIMER Normal [facility] Comment on above: Order Comment: Speci men Type: TISSUE SPECIMENOrdering Facility: [facility] Address: [address] [place] [address] Result Comment: Anne manley Developed Test (LDT) Disclaimer: Performance characteristics of immunohistochemical, immunofluorescent, and chromogenic in-situ hybridization tests have been determined by the performing laboratory within the [facility] Department of Pathology and Laboratory Medicine ([facility], [facility], [facility], [facility], [facility], [facility], or [facility]) in a manner consistent with CLIA requirements. One or more of these tests may not have been cleared or approved by the FDA. The [facility] Department of Pathology and Laboratory Medicine is regulated under CLIA as qualified to perform high-complexity testing. These tests are used for clinical purposes. These should not be regarded as investigational or for research. Positive and negative controls stain appropriately. Performed By: #### 6 6121-5 ####[facility] LABORATORYCLIA [id number] [address] BLOCK FOR ADDITIONAL BIOMARKERS/MOLECULAR STUDIES A2 Normal [facility] Comment on above: Order Comment: Speci men Type: TISSUE SPECIMENOrdering Facility: [facility] Address: [address] [place] [address] Performed By: #### 6 6121-5 ####[facility] LABORATORYCLIA [id number] [address] CASE REPORT Normal [facility] Comment on above: Order Comment: Speci men Type: TISSUE SPECIMENOrdering Facility: [facility] Address: [address] [place] [address] Result Comment: Surg ica Pathology Report Case: [id number] Authorizing Provider: Rasheed Lama DO Collected: 07/13/2025 03:42 PM Ordering Location: [facility] Received: 07/15/2025 09:16 AM Pathologist: Corrine Greene MD Specimen: Liver, Mass, Biopsy Performed By: #### 6 6121-5 ####[facility] LABORATORYCLIA [id number] [address] CLINICAL HISTORY Liver masses Normal [facility] Comment on above: Order Comment: Speci men Type: TISSUE SPECIMENOrdering Facility: [facility] Address: [address] [place] [address] Performed By: #### 6 6121-5 ####[facility] LABORATORYCLIA [id number] [address] DIAGNOSIS COMMENT The squamous cell carcinoma demonstrates positivity for p40 on immunostaining and is negative for TTF-1 and liver marker, HepPar 1. The paraffin block is forwarded to [facility] for PD-L1 determination. The case was also reviewed by Drs. Tyler Reyes and Yasmine Estrada. Benign liver parenchyma demonstrates nonspecific triaditis and glycogenation. Normal [facility] Comment on above: Order Comment: Speci men Type: TISSUE SPECIMENOrdering Facility: [facility] Address: [address] [place] [address] Performed By: #### 6 6121-5 ####[facility] LABORATORYCLIA [id number] [address] FINAL DIAGNOSIS Normal [facility] Comment on above: Order Comment: Speci men Type: TISSUE SPECIMENOrdering Facility: [facility] Address: [address] [place] [address] Result Comment: Live r, biopsies: - Metastatic squamous cell carcinoma. See comment. at 1617 EDT Performed By: #### 6 6121-5 ####[facility] LABORATORYCLIA [id number] [address] FINAL PERFORMING LAB Normal [facility] Comment on above: Order Comment: Speci men Type: TISSUE SPECIMENOrdering Facility: [facility] Address: [address] [place] [address] Result Comment: Diag nostic interpretation performed at: [facility], [address] [place] [address] CLIA# [id number] Harness Repairer: Gwen Sandoval MD Performed By: #### 6 6121-5 ####[facility] LABORATORYCLIA [id number] [address] GROSS DESCRIPTION Normal [facility] Comment on above: Order Comment: Speci men Type: TISSUE SPECIMENOrdering Facility: [facility] Address: [address] [place] [address] Result Comment: Pattie mondragon, Mass, Biopsy Received in formalin labeled liver mass biopsy are 4 fragmented segments of cylindrical tissue aggregating to 2.4 x 0.4 x 0.1 cm, juan-brown and of a soft consistency. Totally submitted in 2 cassettes. Gross examination performed at [facility], [address] [place] [address] RSA July 15, 2025 1:00 PM Performed By: #### 6 6121-5 ####[facility] LABORATORYCLIA [id number] [address] THERAPY NTon 07-13-2025 THERAPY NT HNO ID: [id number] Author: ABILIO POE OTR/L Service: Occupational Therapy Author Type: Occupational Therapist Type: Therapy (PT/OT/Speech/Resp) Filed: 07/13/2025 11:34 Note Text: Occupational Therapy Evaluation Summary SERVICE DATE: 07/13/2025 SERVICE TIME: 1036 to 1051 ROOM: [id number] OT 6 Clicks Score: 24 DISCHARGE RECOMMENDATIONS Home Recommended Discharge Disposition Comments: with family assist PRN for IADLs; cognition assessed using SLUMS and patient scored WNL ASSESSMENT Response to Therapy Interventions: Good Participation in Activities PRECAUTIONS Fall Risk CURRENT HOSPITAL COURSE Presents with feeling off balance, ear pain, malaise and appetite loss. Recently started on abx due to an ear infection. CT brain showing brain masses with vasogenic edema. CT abdomen showing liver lesions, adrenal mass, L3 lytic lesion. Work-up ongoing. Relevant Past Medical History: Self reports R hip replacement HOME LIVING Patient Lives With: Spouse Assistance Available: Part-Time Entry To Home: No Stairs Number Of Stairs To Bed/Bath: 0 Equipment Owned: Cane, Walker- Wheeled PRIOR FUNCTIONAL LEVEL Within Functional Limits Independent with mobility without AD. Goes to the gym 3 days/week. Baseline Cognition: Oriented to self, Oriented to place, Oriented to time, Oriented to situation SUBJECTIVE agreeable to session COGNITION Responsiveness: Alert Follows Commands: 3-step Commands SLUMS Total Score ( ): 27 (07/13/25) THERAPY DIAGNOSIS No Skilled Need, Signs and Symptoms Involving Cognitive Functions and Awareness TREATMENT INTERVENTIONS Evaluation Skilled Treatment Time (minutes): 15 $ Evaluation - Low (80599) Billed Units: 1 unit TRAINING AND EDUCATION PROVIDED Activity Adaptation/Compensatory Strategies, Cognitive Skills, Discharge Planning, Functional Mobility Involving ADLs, Home Set-up/Modifications, IADLs/Home Management, Identification of Systems of Support, Memory/Attention, Role of Occupational Therapy THERAPEUTIC SKILLS USED Activity Dosing, Assessment of Tolerance Including Vitals Response to Activity, Cues for Sequencing/Proper Technique for Activity, Cuing Verbal FUNCTIONAL STATUS Activities of Daily Living Assist Level Additional Information Feeding Independent Grooming Independent Bathing Upper Body Independent Bathing Lower Body Independent Dressing Upper Body Independent Dressing Lower Body Independent Toileting Independent Mobility Assist Level Additional Information Bed Mobility Supine To Sit: Independent Sit To Supine: Independent Sit to Stand Independent Stand to Sit Independent Bed to Chair Toilet/Commode Shower Functional Mobility Independent Range of Motion: WFL Strength: WFL GOALS ACUTE CARE TREATMENT PLAN OT Frequency: Discontinue Therapy Services Reasons Therapy Services Discontinued: No skilled needs SIGNATURE: JACOBO Hernandez/Dennis PATIENT NAME: Christina Macias DATE: July 13, 2025 TIME: 11:33 AM Normal [facility] US BIOPSY LIVERon 07-13-2025 US BIOPSY LIVER * * *Final Report* * * DATE OF EXAM: Jul 13 2025 3:50PM [facility] 1073 - US BIOPSY LIVER / PROCEDURE REASON: metastatic disease, concern for lung primary * * * * Physician Interpretation * * * * PROCEDURE: ULTRASOUND-GUIDED LIVER BIOPSY Procedural Personnel Attending physician(s): Rasheed Lama D.O. Fellow physician(s): None Resident physician(s): None Advanced practice provider(s): None Medical Student(s): None Pre-procedure diagnosis: Liver mass Post-procedure diagnosis: Same Indication: Histopathologic diagnosis Previous biopsy of same target (QCDR): No Additional clinical history: None PROCEDURE SUMMARY: - Percutaneous US-guided coaxial core needle biopsy - Additional procedure(s): None PROCEDURE DETAILS: Pre-procedure Consent: Risks, benefits, treatment options, potential complications and personnel to be involved were discussed (including the risks of radiation exposure, contrast and anesthesia administration, and any equipment needed for the procedure to ensure best possible outcome) with the patient and all questions were answered and consent was obtained prior to procedure. Premedicated for contrast allergy: n/a Transfusion of blood products: No Medication reconciliation: The patient's medications and allergies were reviewed in the electronic medical record and reconciled to the proposed procedure/treatment. Evelina-procedure discussion: The appropriate elements of the pre-procedure discussion, safety check list and sign-out were performed. Time out: A time out was performed immediately prior to procedure start with the nursing and interventional team, correctly identifying the name, date of , procedure, anatomy (including marking of site and side if applicable), patient position, procedure consent form, relevant diagnostic and radiology test results, antibiotic administration if applicable, safety precautions, and procedure-specific equipment needs. Start of procedure: 1530 End of procedure: 1539 Patient position: Supine Preparation: The site was prepared and draped using all elements of maximal sterile barrier technique including sterile gloves, sterile gown, cap, mask, large sterile sheet, hand hygiene and cutaneous antisepsis. Antibiotics: None Antibiotic infusion start time: N/A Prophylactic antibiotic administered: None Additional med: None Additional med: None Image Guidance Sonographic guidance Anesthesia/sedation Level of anesthesia/sedation: No sedation Anesthesia/sedation administered by: Not applicable Total intra-service sedation time (minutes): 0 minutes Local anesthesia: 1 % lidocaine Imaging prior to biopsy The patient was positioned supine. Initial ultrasound was performed. Biopsy target: - Maximal diameter (cm): 1.7 - Location: Inferior right lobe of the liver Other findings: None Biopsy Local anesthesia was administered. Under US guidance, the biopsy needle was advanced to the target and biopsy was performed. Coaxial needle: 17 gauge Core needle biopsy device: [employer] Core needle size: 18 gauge Number of core specimens: 4 On-site biopsy touch preparation: No Additional sampling recommendations: None Preliminary assessment of sample adequacy: Not applicable Needle removal The biopsy needle was removed and a sterile dressing was applied. Tract embolization: None Imaging following biopsy Immediate post-biopsy ultrasound was performed. Post-biopsy imaging findings: No significant hemorrhage or pneumoperitoneum. Additional Details Additional description of procedure: None Equipment details: None Specimens removed: Biopsy samples as detailed above Estimated blood loss (mL): Less than 10 Standardized report: [id number] Complications There were no immediate complications and no other complications. Conclusion The patient was comfortable and was transferred to the recovery room in stable condition. The procedure was performed by the: attending radiologist, without an senior executive assistant. The attending radiologist performed the following procedural activities: Entire procedure IMPRESSION: Ultrasound-guided biopsy of inferior right lobe liver mass. Plan: Specimens sent for evaluation. Attestation Signer name: Rasheed Lama DO I attest that I was present for the entire procedure. I reviewed the stored images and agree with the report as written. Grab Hooker: PSCB Transcribe Date/Time: Jul 18 2025 1:42P Dictated by : RASHEED LAMA DO This examination was interpreted and the report reviewed and electronically signed by: RASHEED LAMA DO on Jul 18 2025 1:50PM EST [id number] Normal [facility] ALLIED HEALTHon 07-12-2025 [facility] HNO ID: [id number] Author: LORENA RAMOS RT(Kassie) Service: Radiology Author Type: Faculty Research Assistant Type: Allied Health Filed: 07/12/2025 08:51 Note Text: Radiology Service Progress Note DATE OF SERVICE: July 12, 2025 TIME: 8:49 AM PATIENT IDENTITY VERIFICATION COMPLETED USING TWO (2) STANDARD IDENTIFIERS: Name and Date of confirmed by patient verbally and Name and Date of confirmed by identification band. FALL SCREENING: Has the patient had 2 falls in the last year or 1 fall with injury or currently using an Ambulatory Assistive Device (Walker, Cane, Wheelchair, Crutches, etc.)? Inpatient: Screened on floor PATIENT GENDER DATA: Assigned female at . status: : No status: NO. PATIENT RELEVANT IMPLANT DATA REVIEWED: Not Applicable PATIENT PRESENTS WITH AN IMPLANTABLE OR ATTACHED NIGHT CLERK: No ALLERGIES: Reviewed and unchanged CONTRAST ALLERGY: NO. EXAM: CT -CONTRAST INDUCED NEPHROPATHY RISK FACTORS: Not applicable CREATININE: Creatinine Date Value Ref Range Status 07/12/2025 0.50 (L) 0.58 - 0.96 mg/dL Final 07/11/2025 0.48 (L) 0.58 - 0.96 mg/dL Final 01/14/2022 0.80 0.58 - 0.96 mg/dL Final Estimated Glomerular Filtration Rate Date Value Ref Range Status 07/12/2025 100 >=60 mL/min/1.73m? Final Comment: Estimated Glomerular Filtration Rate (eGFR) is calculated using the 2020 CKD-EPI creatinine equation. This equation utilizes serum creatinine, sex, and age as parameters. The creatinine assay has traceable calibration to isotope dilution-mass spectrometry. Refer to KDIGO guidelines for clinical interpretation. In patients with unstable renal function, e.g. those with acute kidney injury, the eGFR may not accurately reflect actual GFR. eGFR- Date Value Ref Range Status 09/19/2021 >60 Final P.O.C.T. RESULTS: N/A July 12, 2025 TREATMENT: N/A PERIPHERAL IV DATA: Inpatient - refer to LDA documentation RADIOLOGY DEPARTMENT: CT; Exam(s) Completed: Chest Abdomen Pelvis. Anesthesia: No SIGNATURE: RT Carol(R) PATIENT NAME: Christina Macias DATE: July 12, 2025 TIME: 8:49 AM Normal [facility] CBC W Auto Differential pane l (Bld)on 07-12-2025 Basophils (Bld) [#/Vol] 0.03 10*3/uL Normal <0.11 [facility] Comment on above: Order Comment: Speci men Type: BLOOD SPECIMENOrdering Facility: [facility] Address: [address] [place] [address] Performed By: #### 5 7021-8 ####[facility]ORATORYCLIA [id number] [address] [place] Basophils/100 WBC (Bld) 0.2 % Normal [facility] Comment on above: Order Comment: Speci men Type: BLOOD SPECIMENOrdering Facility: [facility] Address: [address] [place] [address] Performed By: #### 5 7021-8 ####[facility] LABORATORYCLIA [id number] [address] [place] Differential cell count method Nom (Bld) Auto Normal [facility] Comment on above: Order Comment: Speci men Type: BLOOD SPECIMENOrdering Facility: [facility] Address: [address] [place] [address] Performed By: #### 5 7021-8 ####[facility] LABORATORYCLIA [id number] [address] [place] Eosinophils (Bld) [#/Vol] 0.03 10*3/uL Normal <0.46 [facility] Comment on above: Order Comment: Speci men Type: BLOOD SPECIMENOrdering Facility: [facility] Address: [address] [place] [address] Performed By: #### 5 7021-8 ####[facility]ATORYCLIA [id number] [address] [place] Eosinophils/100 WBC (Bld) 0.2 % Normal [facility] Comment on above: Order Comment: Speci men Type: BLOOD SPECIMENOrdering Facility: [facility] Address: [address] [place] [address] Performed By: #### 5 7021-8 ####[facility] LABORATORYCLIA [id number] [address] [place] Erythrocyte distribution width (RBC) [Ratio] 12.8 % Normal 11.5-15.0 [facility] Comment on above: Order Comment: Speci men Type: BLOOD SPECIMENOrdering Facility: [facility] Address: [address] [place] [address] Performed By: #### 5 7021-8 ####[facility] LABORATORYCLIA [id number] [address] [place] Hematocrit (Bld) [Volume fraction] 42.0 % Normal 36.0-46.0 [facility] Comment on above: Order Comment: Speci men Type: BLOOD SPECIMENOrdering Facility: [facility] Address: [address] [place] [address] Performed By: #### 5 7021-8 ####[facility] LABORATORYCLIA [id number] [address] [place] Hemoglobin (Bld) [Mass/Vol] 14.2 g/dL Normal 11.5-15.5 [facility] Comment on above: Order Comment: Speci men Type: BLOOD SPECIMENOrdering Facility: [facility] Address: [address] [place] [address] Performed By: #### 5 7021-8 ####[facility] LABORATORYCLIA [id number] [address] [place] Immature granulocytes (Bld) [#/Vol] 0.08 10*3/uL Normal <0.10 [facility] Comment on above: Order Comment: Speci men Type: BLOOD SPECIMENOrdering Facility: [facility] Address: [address] [place] [address] Performed By: #### 5 7021-8 ####[facility] LABORATORYCLIA [id number] [address] Immature granulocytes/100 WBC (Bld) 0.5 % Normal [facility] Comment on above: Order Comment: Speci men Type: BLOOD SPECIMENOrdering Facility: [facility] Address: [address] [place] [address] Performed By: #### 5 7021-8 ####[facility] LABORATORYCLIA [id number] [address] Lymphocytes (Bld) [#/Vol] 1.78 10*3/uL Normal 1.00-4.00 [facility] Comment on above: Order Comment: Speci men Type: BLOOD SPECIMENOrdering Facility: [facility] Address: [address] [place] [address] Performed By: #### 5 7021-8 ####[facility] LABORATORYCLIA [id number] [address] Lymphocytes/100 WBC (Bld) 10.8 % Normal [facility] Comment on above: Order Comment: Speci men Type: BLOOD SPECIMENOrdering Facility: [facility] Address: [address] [place] [address] Performed By: #### 5 7021-8 ####[facility] LABORATORYCLIA [id number] [address] MCH (RBC) [Entitic mass] 27.8 pg Normal 26.0-34.0 [facility] Comment on above: Order Comment: Speci men Type: BLOOD SPECIMENOrdering Facility: [facility] Address: [address] [place] [address] Performed By: #### 5 7021-8 ####[facility] LABORATORYCLIA [id number] [address] STATES OF [facility] MCHC (RBC) [Mass/Vol] 33.8 g/dL Normal 30.5-36.0 [facility] Comment on above: Order Comment: Speci men Type: BLOOD SPECIMENOrdering Facility: [facility] Address: [address] [place] [address] Performed By: #### 5 7021-8 ####[facility] LABORATORYCLIA [id number] [address] MCV (RBC) [Entitic vol] 82.4 fL Normal 80.0-100.0 [facility] Comment on above: Order Comment: Speci men Type: BLOOD SPECIMENOrdering Facility: [facility] Address: [address] [place] [address] Performed By: #### 5 7021-8 ####[facility]ORYCLIA [id number] [address] [place] Monocytes (Bld) [#/Vol] 0.92 10*3/uL High <0.87 [facility] Comment on above: Order Comment: Speci men Type: BLOOD SPECIMENOrdering Facility: [facility] Address: [address] [place] [address] Performed By: #### 5 7021-8 ####[facility]ORATORYCLIA [id number] [address] [facility] Monocytes/100 WBC (Bld) 5.6 % Normal [facility] Comment on above: Order Comment: Speci men Type: BLOOD SPECIMENOrdering Facility: [facility] Address: [address] [place] [address] Performed By: #### 5 7021-8 ####[facility] LABORATORYCLIA [id number] [address] [place] Neutrophils (Bld) [#/Vol] 13.58 10*3/uL High 1.45-7.50 [facility] Comment on above: Order Comment: Speci men Type: BLOOD SPECIMENOrdering Facility: [facility] Address: [address] [place] [address] Performed By: #### 5 7021-8 ####[facility]ORYCLIA [id number] [address] [place] Neutrophils/100 WBC (Bld) 82.7 % Normal [facility] Comment on above: Order Comment: Speci men Type: BLOOD SPECIMENOrdering Facility: [facility] Address: [address] [place] [address] Performed By: #### 5 7021-8 ####[facility]ORYCLIA [id number] [address] [place] Nucleated RBC (Bld) [#/Vol] 10*3/uL Normal <0.01 [facility] Comment on above: Order Comment: Speci men Type: BLOOD SPECIMENOrdering Facility: [facility] Address: [address] [place] [address] Performed By: #### 5 7021-8 ####[facility] LABORATORYCLIA [id number] [address] [place] Nucleated RBC/100 WBC (Bld) [Ratio] 0.0 /100 WBC Normal [facility] Comment on above: Order Comment: Speci men Type: BLOOD SPECIMENOrdering Facility: [facility] Address: [address] [place] [address] Performed By: #### 5 7021-8 ####[facility] LABORATORYCLIA [id number] [address] [place] Platelet mean volume (Bld) [Entitic vol] 10.2 fL Normal 9.0-12.7 [facility] Comment on above: Order Comment: Speci men Type: BLOOD SPECIMENOrdering Facility: [facility] Address: [address] [place] [address] Performed By: #### 5 7021-8 ####[facility] LABORATORYCLIA [id number] [address] [place] Platelets (Bld) [#/Vol] 341 10*3/uL Normal 150-400 [facility] Comment on above: Order Comment: Speci men Type: BLOOD SPECIMENOrdering Facility: [facility] Address: [address] [place] [address] Performed By: #### 5 7021-8 ####[facility] LABORATORYCLIA [id number] [place] [address] [place] RBC (Bld) [#/Vol] 5.10 10*6/uL Normal 3.90-5.20 [facility] Comment on above: Order Comment: Speci men Type: BLOOD SPECIMENOrdering Facility: [facility] Address: [address] [place] [address] Performed By: #### 5 7021-8 ####[facility] LABORATORYCLIA [id number] [place] [address] [place] WBC (Bld) [#/Vol] 16.42 10*3/uL High 3.70-11.00 [facility] Comment on above: Order Comment: Speci men Type: BLOOD SPECIMENOrdering Facility: [facility] Address: [address] [place] [address] Performed By: #### 5 7021-8 ####[facility] LABORATORYCLIA [id number] [place] [address] [facility] CONSULTon 07-12-2025 CONSULT HNO ID: [id number] Author: TARAS MARTINEZ MD Service: Hematology/Oncology Author Type: Physician Shipping Receiving Clerk Type: Consults Filed: 07/12/2025 14:27 Note Text: -- Attestation signed by Taras Martinez MD at 07/12/2025 2:27 PM Pt seen and examined independently. Reviewed with EMMA. Reviewed with pt. Was not given dex and will defer to NSG team with her vasogenic edema. Awaiting CTs at the time of my visit but resulted after and reviewed with EMMA. Pt has been quite asymptomatic. Only off balance for 2-3 days. Quit smoking about 35 yrs ago. Previously 1ppd x 20 years. with 6 kids between her and . Retired from [employer]. Will go after biopsy of the liver for diagnosis for now. Will follow. Traas Martinez MD -- Heme Onc INITIAL CONSULT NOTE SERVICE DATE: 07/12/2025 SERVICE TIME: 10:05am REASON FOR CONSULT: brain mass REQUESTING PHYSICIAN: Regi PRIMARY CARE PHYSICIAN: Andrew Billingsley MD Subjective Mrs. Macias is a 69 year old female who presented to [facility] for feeling off balance. She had a CT brain showing low-density in the R temporal and occipital lobe and R cerebellar hemisphere suggestive of vasogenic edema from underlying masses with mild subfalcine herniation of 6.4 mm without hemorrhage. She was transferred here for further evaluation and management. Neurosurgery was consulted. MRI brain revealed numerous lesions concerning for metastatic disease. CT CAP revealed R lung mass, thoracic lymphadenopathy, and multiple liver lesions. Christina denies personal history of cancer. Reports her mother had lung cancer in her 50s and she was a smoker. No other family hx of any cancers. She denies personal hx of VTE. No personal or family hx of any bleeding or clotting disorders. She is a former smoker. Smoked for about 20 years, 1 pack per day. Stopped about 35 years ago. Denies any alcohol or drug use. 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 Reports he last colonoscopy was about 5 years ago and normal. Reports her last mammogram was about 5 years ago and was normal. Has never had an abnormal mammogram. No unexplained fevers, chills, night sweats, blood in the stool/urine, changes in bladder bowel habits, lumps or masses anywhere, decreased appetite, and unexplained weight loss. Recently intentionally lost 60 pounds in 8 months, has been going to gym 3 days a week and watching what she eats. Walks about 3 miles at the gym. She lives with her . They have 6 children, 1 lives local and the rest are out of state. FUNCTIONAL STATUS: Independent PAST MEDICAL HISTORY Diagnosis Date Diverticulosis of colon (without mention of hemorrhage) colonoscopy 08/14 Essential hypertension, benign IBS (irritable bowel syndrome) Pneumonia 08/2014 PAST SURGICAL HISTORY Procedure Laterality Date COLONOSCOPY 06/2010 DILATION AND CURETTAGE DXAND/THER NONOBSTETRIC Dilation AND curettage LAPAROSCOPY SURG CHOLECYSTECTOMY 09/2009 PAST SURGICAL HISTORY OF [id number] bilat knee arthroscopic TONSILLECTOMY AND ADENOIDECTOMY Tonsil/adenoidectomy FAMILY HISTORY Problem Relation Age of Onset Ischemic Heart Disease Father age 46 Cancer Mother lung Ischemic Heart Disease Other nephew SOCIAL HISTORY[1] Prescriptions Prior to Admission[2] Current Facility-Administered Medications Medication Dose Route Frequency iv contrast (radiology procedure) INTRAVENOUS DIRECTED PRN iv contrast (radiology procedure) INTRAVENOUS DIRECTED PRN And enteric contrast (radiology procedure) ORAL DIRECTED PRN metoprolol succinate ER 25 mg tab(s) (TOPROL XL) 25 mg ORAL AT BEDTIME hydrALAZINE 10 mg injection (APRESOLINE) 10 mg INTRAVENOUS q 6 H PRN cefTRIAXone iv piggyback 1 g in dextrose (iso-osmotic) 50 mL (ROCEPHIN) 1 g INTRAVENOUS q 24 H NaCl 0.9% iv flush bag 20 mL INTRAVENOUS PRN chlorthalidone 25 mg tab(s) (HYGROTON) 25 mg ORAL DAILY lactobacillus rhamnosus 10 billion cell (CULTURELLE) capsule 1 capsule ORAL DAILY acetaminophen 650 mg tab(s) (TYLENOL) 650 mg ORAL q 6 H PRN ondansetron (PF) 4 mg injection (ZOFRAN) 4 mg INTRAVENOUS q 12 H PRN Allergies As of Date: 07/11/2025 (No Known Allergies) Fully Assessed 07/11/2025 COMPLETE REVIEW OF SYSTEMS: Reviewed and negative unless noted in HPI. Objective PHYSICAL EXAM: Physical Exam Performed: GENERAL: Alert, no distress, cooperative SKIN: Skin color, texture, turgor normal. No rashes or lesions. NECK: no palpable cervical or supraclavicular lymphadenopathy. LUNGS: Lungs clear to auscultation, Good diaphragmatic excursion CARDIAC: Normal S1 and S2; no rubs, murmurs, or gallops ABDOMEN: Abdomen soft, non-tender, BS normal, No masses or organomegaly EXTREMITIES: Extremities normal, no deformities, david (more content not included)... Normal [facility] CONSULT HNO ID: [id number] Author: RICARDO ARCHER APRN.[facility] Service: Neurosurgery Author Type: Nurse Practitioner Type: Consults Filed: 07/12/2025 11:04 Note Text: -- Attestation signed by Lauri Martell MD at 07/13/2025 6:43 AM HANDP reviewed, and I agree with the above. 69F who presented with dizziness and vertigo symptoms. A CT revealed several areas of vasogenic edema within the brain, concerning for metastasis. She had an MRI which showed 6 enhancing lesions, likely metastatic. None of these are large enough to warrant surgical resection. During her workup, she was found to have a right sided lung mass. This is likely the source of her metastatic disease. It is pending further workup. She will likely be a candidate for gamma knife radiosurgery once she has a definitive diagnosis. I will reach out to my neurosurgery colleagues to ensure that she has the proper follow-up to consider this treatment. Lauri Martell MD -- CONSULT: NEUROSURGERY SERVICE Patient Name: Christina Macias Date of : 1955 SERVICE DATE: 07/12/2025 REASON FOR CONSULT: brain masses REQUESTING PHYSICIAN: Ned Garcia PRIMARY CARE PHYSICIAN: Andrew Billingsley MD Consultation requested by Dr. Garcia for an opinion regarding brain masses. My final recommendations will be communicated back to the requesting physician by way of shared Medical record or letter to requesting physician via US mail. CHIEF COMPLAINT: dizzy, ear pain HISTORY OF PRESENT ILLNESS : Christina Macias is a 69 year old female remote smoker who presented with 1 week of ear pain, malaise, appetite loss. Initially thought it was ear infection (had left ear infection in April which resolved with abx) but antibiotics gave her GI upset. Presented to OSH where she was found to have multiple brain masses. Decadron given at OSH. PAST MEDICAL HISTORY Diagnosis Date Diverticulosis of colon (without mention of hemorrhage) colonoscopy 08/14 Essential hypertension, benign IBS (irritable bowel syndrome) Pneumonia 08/2014 PAST SURGICAL HISTORY Procedure Laterality Date COLONOSCOPY 06/2010 DILATION AND CURETTAGE DXAND/THER NONOBSTETRIC Dilation AND curettage LAPAROSCOPY SURG CHOLECYSTECTOMY 09/2009 PAST SURGICAL HISTORY OF [id number] bilat knee arthroscopic TONSILLECTOMY AND ADENOIDECTOMY Tonsil/adenoidectomy FAMILY HISTORY Problem Relation Age of Onset Ischemic Heart Disease Father age 46 Cancer Mother lung Ischemic Heart Disease Other nephew ALLERGIES No Known Allergies Current Facility-Administered Medications Medication Dose Route Frequency Provider Last Rate Last Admin iv contrast (radiology procedure) INTRAVENOUS DIRECTED PRN Ricardo Archer APRN.CNP iv contrast (radiology procedure) INTRAVENOUS DIRECTED PRN Ricardo Archer APRN.CNP And enteric contrast (radiology procedure) ORAL DIRECTED PRN Ricardo Acrher APRN.CNP metoprolol succinate ER 25 mg tab(s) (TOPROL XL) 25 mg ORAL AT BEDTIME Ned Garcia DO 25 mg at 07/11/25 2214 hydrALAZINE 10 mg injection (APRESOLINE) 10 mg INTRAVENOUS q 6 H PRN Ned Garcia DO cefTRIAXone iv piggyback 1 g in dextrose (iso-osmotic) 50 mL (ROCEPHIN) 1 g INTRAVENOUS q 24 H Ned Garcia DO 100 mL/hr at 07/12/25 1013 1 g at 07/12/25 1013 NaCl 0.9% iv flush bag 20 mL INTRAVENOUS PRN Ned Garcia DO chlorthalidone 25 mg tab(s) (HYGROTON) 25 mg ORAL DAILY Ned Garcia DO 25 mg at 07/12/25 1013 lactobacillus rhamnosus 10 billion cell (CULTURELLE) capsule 1 capsule ORAL DAILY Ned Garcia DO acetaminophen 650 mg tab(s) (TYLENOL) 650 mg ORAL q 6 H PRN Ned Garcia DO ondansetron (PF) 4 mg injection (ZOFRAN) 4 mg INTRAVENOUS q 12 H PRN Ned Garcia DO COMPLETE REVIEW OF SYSTEMS 12 point ROS neg except as HPI MEDS: Current Facility-Administered Medications Medication Dose Route Frequency iv contrast (radiology procedure) INTRAVENOUS DIRECTED PRN iv contrast (radiology procedure) INTRAVENOUS DIRECTED PRN And enteric contrast (radiology procedure) ORAL DIRECTED PRN metoprolol succinate ER 25 mg tab(s) (TOPROL XL) 25 mg ORAL AT BEDTIME hydrALAZINE 10 mg injection (APRESOLINE) 10 mg INTRAVENOUS q 6 H PRN cefTRIAXone iv piggyback 1 g in dextrose (iso-osmotic) 50 mL (ROCEPHIN) 1 g INTRAVENOUS q 24 H NaCl 0.9% iv flush bag 20 mL INTRAVENOUS PRN chlorthalidone 25 mg tab(s) (HYGROTON) 25 mg ORAL DAILY lactobacillus rhamnosus 10 billion cell (CULTURELLE) capsule 1 capsule ORAL DAILY acetaminophen 650 mg tab(s) (TYLENOL) 650 mg ORAL q 6 H PRN ondansetron (PF) 4 mg injection (ZOFRAN) 4 mg INTRAVENOUS q 12 H PRN OBJECTIVE: BP 184/100 Pulse 97 Temp (Src) 98.6 (Oral) Resp 18 Ht 5' 6 (1.68m) Wt 150 lb 9.6 oz (68.3kg) SpO2 94 (more content not included)... Normal [facility] CT ABD/PEL W IVCONon 025 CT ABD/PEL W IVCON * * *Final Report* * * DATE OF EXAM: Jul 12 2025 8:57AM [facility] 0530 - CT ABD/PEL W IVCON / PROCEDURE REASON: Brain/[employer] ACCOUNT EXECUTIVE neoplasm, staging * * * * Physician Interpretation * * * * EXAMINATION: CT ABDOMEN AND PELVIS WITH IV CONTRAST CLINICAL HISTORY: History of metastatic lesion within the brain and mass lesion in the right upper lung. TECHNIQUE: CT of the abdomen and pelvis was performed using standard technique, scanning from just above the dome of the diaphragm to the symphysis pubis. MQ: CTAP_3 Contrast: IV: 100 ml of Omnipaque 350 CT Radiation dose: Integrated Dose-length product (DLP) for this visit = 571 mGy*cm. CT Dose Reduction Employed: Automated exposure control(AEC) and iterative recon COMPARISON: 03/05/2019 RESULT: Liver: Several lesions noted in the liver most suspicious for metastasis. 1.8 cm lesion medial aspect of segment 7. Best seen on 2:10. 1.9 cm lesion seen posterior aspect segment 7 on 2:14. 1.7 cm lesion seen in segment 6 on 2:58. Biliary: No dilated extrahepatic common bile duct measuring up to 1.5 cm. No intrahepatic bile duct dilatation. Gallbladder surgically absent. Spleen: No mass. No splenomegaly. Pancreas: No mass or duct dilation. Adrenals: Right adrenal mass measuring up to 4.9 cm on 2:19. There was a previous adrenal lesion measuring 3.[address] scan of 03/05/2019. Left adrenal gland unremarkable. Kidneys: Unremarkable. GI tract: No dilation or wall thickening. Extensive diverticulosis of the distal descending and sigmoid colon. No radiographic evidence for acute diverticulitis. Lymph nodes: No abdominal or pelvic lymphadenopathy. Mesentery/Peritoneum: No ascites or mass. Retroperitoneum: No mass. Vasculature: Abdominal aorta is not aneurysmally dilated. Celiac artery, SMA, renal arteries, and NIRMAL are patent. Portal vein, hepatic veins, splenic vein, and SMV are patent. Pelvis: No mass, ascites or fluid collection. Bones/Soft Tissues: Right hip prosthesis. Lytic lesion inferior aspect of L3 vertebral body as seen on 4:67. Lower thorax: A chest CT performed will be reported separately. Localizer images: No additional findings. IMPRESSION: 1. Several lesions in the liver most suspicious for metastatic disease. 2. Right adrenal mass. The lesion has increased since 2019 study. Unclear if it represents increasing size of benign adrenal mass or possibly metastatic disease superimposed upon underlying right adrenal lesion. 3. Lytic lesion inferior aspect of L3 vertebral body. Metastatic disease is the top consideration. 4. Dilated extrahepatic common bile duct. Most likely related to prior cholecystectomy. Grab Hooker: ASHOK Transcribe Date/Time: Jul 12 2025 9:45A Dictated by : SHIVAM BAILEY MD This examination was interpreted and the report reviewed and electronically signed by: SHIVAM BAILEY MD on Jul 12 2025 9:52AM EST [id number] Normal [facility] CT CHEST W IVCONon 5 CT CHEST W IVCON * * *Final Report* * * DATE OF EXAM: Jul 12 2025 8:57AM [facility] 0539 - CT CHEST W IVCON / PROCEDURE REASON: Brain/[employer] ACCOUNT EXECUTIVE neoplasm, staging * * * * Physician Interpretation * * * * EXAMINATION: CHEST CT WITH CONTRAST CLINICAL HISTORY: Cancer staging. Lesions noted in the brain most suspicious for metastasis. Technique: Spiral CT acquisition of the chest from the thoracic inlet to the upper abdomen following IV contrast. MQ: CTCW_6 Contrast: 100 mL Omnipaque [address] Radiation dose: Integrated Dose-length product (DLP) for this visit = 571 mGy*cm CT Dose Reduction Employed: Automated exposure control(AEC) and iterative recon Comparison: No recent studies. Prior exam dated 10/22/2013. RESULT: Limitations: None. Lines, tubes, and devices: None. Lungs/pleura: Right: Central mass lesion obstructing the right upper lobe bronchus. Difficult to see borders of mass given the adjacent collapse in the right upper lobe. Mass is estimated to measure between 4 and 5 cm on 2:62 and possibly as much as 6 to 7 cm in cephalocaudal dimension as seen on 5:40 and 4:96. It is intimately associated with the pleura of the mediastinum. Direct invasion into the mediastinum is not clearly identified. It involves the right upper lobe bronchus to within 1.0 cm above the lorraine. Multiple scattered tiny 2 to 3 mm nodules throughout remaining aerated right upper lobe. Remainder right middle lobe and right lower lobe are clear. No pleural effusion. Left: Granuloma left upper lobe on 3:36. Remainder left lobe is clear. Lower neck, lymph nodes, and mediastinum: Heart size normal. No pericardial effusion. Thoracic aorta not aneurysmally dilated. Right paratracheal lymph nodes measuring up to 0.8 cm on 2:59. Prevascular lymph node measuring 1.5 cm short axis on 2:67. Subcarinal lymph node measuring 1.0 cm short axis on 2:88. Right supraclavicular lymph node measuring 1.0 cm short axis on 2:27. Bones and soft tissues: No destructive bone lesion involving the right vertebral body and pedicle of T11 as seen on 2:154. Upper abdomen: See report of accompanying CT scan of abdomen and pelvis from same day. Localizer images: No additional findings. IMPRESSION: 1. Mass lesion centrally in the right upper lobe obstructing the right upper lobe bronchus. Suspect primary lung neoplasm. 2. Multiple tiny nodules scattered throughout the aerated right upper lobe. Unclear whether these represent metastatic lesions or inflammatory/infectious lesions. 3. Lymph node enlargement in the mediastinum and right supraclavicular region most suspicious for metastatic lymph nodes. 4. Bony destruction of T11 most consistent with metastatic disease. Grab Hooker: ASHOK Transcribe Date/Time: Jul 12 2025 9:24A Dictated by : SHIVAM BAILEY MD This examination was interpreted and the report reviewed and electronically signed by: SHIVAM BAILEY MD on Jul 12 2025 9:38AM EST [id number] Normal [facility] Comprehensive metabolic 2000 panelon 07-12-2025 Albumin [Mass/Vol] 4.1 g/dL Normal 3.9-4.9 [facility] Comment on above: Order Comment: Speci men Type: BLOOD SPECIMENOrdering Facility: [facility] Address: [address] [place] [address] Performed By: #### 2 4323-06, ####[facility] LABORATORYCLIA [id number] [address] STATES OF [facility] ALP [Catalytic activity/Vol] 91 U/L Normal 34-123 [facility] Comment on above: Order Comment: Speci men Type: BLOOD SPECIMENOrdering Facility: [facility] Address: [address] [place] [address] Performed By: #### 2 4323-06, ####[facility] LABORATORYCLIA [id number] [place] [address] [place] ALT With P-5'-P [Catalytic activity/Vol] 9 U/L Normal 7-38 [facility] Comment on above: Order Comment: Speci men Type: BLOOD SPECIMENOrdering Facility: [facility] Address: [address] [place] [address] Performed By: #### 2 4323-06, ####[facility] LABORATORYCLIA [id number] [address] STATES OF [facility] Anion gap [Moles/Vol] 12 mmol/L Normal 8-15 [facility] Comment on above: Order Comment: Speci men Type: BLOOD SPECIMENOrdering Facility: [facility] Address: [address] [place] [address] Performed By: #### 2 43201-15, ####[facility] LABORATORYCLIA [id number] [place] [address] [place] AST With P-5'-P [Catalytic activity/Vol] 12 U/L Low 13-35 [facility] Comment on above: Order Comment: Speci men Type: BLOOD SPECIMENOrdering Facility: [facility] Address: [address] [place] [address] Performed By: #### 2 4322-8, ####[facility] LABORATORYCLIA [id number] [place] [address] [place] Bilirubin [Mass/Vol] 0.7 mg/dL Normal 0.2-1.3 [facility] Comment on above: Order Comment: Speci men Type: BLOOD SPECIMENOrdering Facility: [facility] Address: [address] [place] [address] Performed By: #### 2 8, ####[facility]ORATORYCLIA [id number] [place] [address] [place] Calcium [Mass/Vol] 9.8 mg/dL Normal 8.5-10.2 [facility] Comment on above: Order Comment: Speci men Type: BLOOD SPECIMENOrdering Facility: [facility] Address: [address] [place] [address] Performed By: #### 2 8, ####[facility]ORATORYCLIA [id number] [place] [address] [place] Chloride [Moles/Vol] 96 mmol/L Low 98-107 [facility] Comment on above: Order Comment: Speci men Type: BLOOD SPECIMENOrdering Facility: [facility] Address: [address] [place] [address] Performed By: #### 2 8, ####[facility] LABORATORYCLIA [id number] [place] [address] [place] CO2 [Moles/Vol] 26 mmol/L Normal 22-30 [facility] Comment on above: Order Comment: Speci men Type: BLOOD SPECIMENOrdering Facility: [facility] Address: [address] [place] [address] Performed By: #### 2 4328, ####[facility]PITALIA [id number] [place] [address] [place] Creatinine [Mass/Vol] 0.50 mg/dL Low 0.58-0.96 [facility] Comment on above: Order Comment: Michelle ramírez Type: BLOOD SPECIMENOrdering Facility: [facility] Address: [address] [place] [address] Performed By: #### 2 43201-15, ####[facility] HOSPITALIA [id number] [place] [address] [place] eGFRcr SerPlBld CKD-EPI 2020 100 mL/min/1.73m??? Normal >=60 [facility] Comment on above: Order Comment: Michelle ramírez Type: BLOOD SPECIMENOrdering Facility: [facility] Address: [address] [place] [address] Result Comment: Princess mated Glomerular Filtration Rate (eGFR) is calculated using the 2020 CKD-EPI creatinine equation. This equation utilizes serum creatinine, sex, and age as parameters. The creatinine assay has traceable calibration to isotope dilution-mass spectrometry. Refer to KDIGO guidelines for clinical interpretation. In patients with unstable renal function, e.g. those with acute kidney injury, the eGFR may not accurately reflect actual GFR. Performed By: #### 2 4323-8, ####[facility] HOSPITALIA [id number] [place] [address] [place] Glucose [Mass/Vol] 143 mg/dL High 74-99 [facility] Comment on above: Order Comment: Michelle ramírez Type: BLOOD SPECIMENOrdering Facility: [facility] Address: [address] [place] [address] Result Comment: The [place] Diabetes Association (ADA) provides guidance for cutoff [...] Standards of Medical Care in Diabetes 2016, [place] [employer]. Diabetes Care. 2016.39(Suppl 1). Performed By: #### 2 4323-06, ####[facility] LABORATORYCLIA [id number] [place] [address] [place] Potassium [Moles/Vol] 3.4 mmol/L Low 3.7-5.1 [facility] Comment on above: Order Comment: Speci men Type: BLOOD SPECIMENOrdering Facility: [facility] Address: [address] [place] [address] Performed By: #### 2 4323-06, ####[facility] LABORATORYCLIA [id number] [place] [address] [place] Protein [Mass/Vol] 7.1 g/dL Normal 6.3-8.0 [facility] Comment on above: Order Comment: Speci men Type: BLOOD SPECIMENOrdering Facility: [facility] Address: [address] [place] [address] Performed By: #### 2 4323-06, ####[facility] LABORATORYCLIA [id number] [place] [address] [place] Sodium [Moles/Vol] 134 mmol/L Low 136-144 [facility] Comment on above: Order Comment: Speci men Type: BLOOD SPECIMENOrdering Facility: [facility] Address: [address] [place] [address] Performed By: #### 2 4323-06, ####[facility] LABORATORYCLIA [id number] [place] [id number] [place] Urea nitrogen [Mass/Vol] 14 mg/dL Normal 7-21 [facility] Comment on above: Order Comment: Speci men Type: BLOOD SPECIMENOrdering Facility: [facility] Address: [address] [place] [address] Performed By: #### 2 4323-06, ####[facility] LABORATORYCLIA [id number] [place] [id number] [place] Magnesium SerPl-mCncon 07-12 Magnesium [Mass/Vol] 1.7 mg/dL Normal 1.7-2.3 [facility] Comment on above: Order Comment: Speci men Type: BLOOD SPECIMENOrdering Facility: [facility] Address: [facility] [address] [place] [address] Performed By: #### 2 4323-8, ####[facility] LABORATORYCLIA [id number] [place] [address] [facility] [place] THERAPY NTon 07-12-2025 THERAPY NT HNO ID: [id number] Author: JOSEPH WISEMAN, PT Service: Physical Therapy Author Type: Physical Therapist Type: Therapy (PT/OT/Speech/Resp) Filed: 07/12/2025 11:59 Note Text: Physical Therapy Evaluation Summary SERVICE DATE: 07/12/2025 SERVICE TIME: 1115 to 1130 ROOM: [place] [address] PT 6 Clicks Score: 22 DISCHARGE RECOMMENDATIONS Outpatient PT Recommended Discharge Disposition Comments: Recommend outpatient PT to address mild balance impairment. ASSESSMENT Response to Therapy Interventions: Good Participation in Activities Pt demonstrates 5/5 BLE strength. She does demonstrate very mild path deviation and lateral sway when walking, but no LOB. She was able to walk 300 feet without a device and completed stair training, with just slight impulsiveness. Recommending outpatient PT to address mild balance impairment. PRECAUTIONS Fall Risk CURRENT HOSPITAL COURSE Presents with feeling off balance, ear pain, malaise and appetite loss. Recently started on abx due to an ear infection. CT brain showing brain masses with vasogenic edema. CT abdomen showing liver lesions, adrenal mass, L3 lytic lesion. Work-up ongoing. Relevant Past Medical History: Self reports R hip replacement HOME LIVING Patient Lives With: Spouse Assistance Available: Part-Time Entry To Home: No Stairs Number Of Stairs To Bed/Bath: 0 Equipment Owned: Cane, Walker- Wheeled PRIOR FUNCTIONAL LEVEL Within Functional Limits Independent with mobility without AD. Goes to the gym 3 days/week. SUBJECTIVE Agreeable to PT THERAPY DIAGNOSIS Reduced mobility-other, Unsteadiness on feet TREATMENT INTERVENTIONS Evaluation Skilled Treatment Time (minutes): 15 $ Evaluation-Moderate (38734) Billed Units: 1 unit TRAINING AND EDUCATION PROVIDED Benefits of In-Hospital Mobility, Role of Physical Therapy THERAPEUTIC SKILLS USED Activity Dosing, Cuing Verbal, Movement Facilitation FUNCTIONAL STATUS Bed Mobility Supine To Sit: Independent Sit to Supine: Independent Transfers Sit To Stand: Modified Independent, Additional Information minimal UE support, pt appears steady with STS transfer Stand To Sit: Modified Independent, Additional Information minimal UE support to control descent to sitting, pt is steady and demo's control with descent to sitting Bed to Chair Gait Supervision, Additional Information very mild path deviation and lateral sway increase, but no overt LOB Gait Device: None General Deviations/Observations: Mami decreased, Path Deviation Gait Distance (feet): 300 Stairs Supervision, Additional Information Stairs Device: Rail Number of Stairs: 4 reciprocal pattern with ascending and descending, slightly impulsive RANGE OF MOTION WFL STRENGTH WFL BALANCE Static Sitting Balance: Good Dynamic Sitting Balance: Good Static Standing Balance: Good Dynamic Standing Balance: Fair COORDINATION Intact UE coordination bilateral Ue's with finger to nose test. GOALS Patient will demonstrate progress to optimize functional mobility, maximize activity tolerance and endurance to maximize function upon discharge. Rolling with: Independent Transfer Supine to/from Sit with: Independent Transfer Sit to/from Stand with: Independent Ambulate with: Independent Distance: 300 Device: No Device Rehab Potential: Good Good Rehab Potential Due To: Current objective clinical presentation, Good overall health status, Good support system/ coping skills, Good motivation ACUTE CARE TREATMENT PLAN PT Frequency: 2 Times Per Week (1-2) Treatment Interventions: Education, Functional Mobility Training, Balance Training, Neuromuscular Re-education Plan for Next Visit: Standing Balance SIGNATURE: Joseph Wiseman, PT PATIENT NAME: Christina Macias DATE: July 12, 2025 TIME: 11:56 AM Normal [facility] 12 Lead EKGon 07-11-2025 12 Lead EKG [facility] Cardiovascular Services [address] [place] [address] 12 Lead EKG 07/11/25 1243 MR#: [id number] Acct: [id number] Name: CHRISTINA MACIAS Rep #: [id number] : 1955 69 From: Geovanna English MD Attending Dr: Status: DEP ER Ordering Dr: Gwen Helm DO Date: 07/11/25 Location: ED Sex: F C Admitted: Test Reason : Blood Pressure : */* mmHG Vent. Rate : 78 BPM Atrial Rate : 78 BPM P-R Int : 176 ms QRS Dur : 92 ms QT Int : 434 ms P-R-T Axes : 83 58 80 degrees QTcB Int : 494 ms Sinus rhythm with frequent Premature ventricular complexes QTcB >= 480 msec Abnormal ECG Confirmed by Geovanna English ([id number]), editor map RAFAELA MOREL ([id number]) on 07/12/2025 11:00:18 AM Referred By: Confirmed By: Geovanna English 07/12/25 1100 Date Geovanna English MD CC: Dr. Gwen Helm DO; Dr. Andrew Billingsley MD Signed [facility] HEALTH 07-11-2025 ALLIED HEALTH HNO ID: [id number] Author: PAULINO DICKEY RT(R) Service: Radiology Author Type: Technologist Type: Allied Health Filed: 07/11/2025 23:45 Note Text: Radiology Service Progress Note DATE OF SERVICE: July 11, 2025 TIME: 11:45 PM PATIENT IDENTITY VERIFICATION COMPLETED USING TWO (2) STANDARD IDENTIFIERS: Name and Date of confirmed by patient verbally and Name and Date of confirmed by identification band. FALL SCREENING: Has the patient had 2 falls in the last year or 1 fall with injury or currently using an Ambulatory Assistive Device (Walker, Cane, Wheelchair, Crutches, etc.)? Inpatient: Screened on floor PATIENT GENDER DATA: Assigned female at . status: : No status: NO. PATIENT RELEVANT IMPLANT DATA REVIEWED: Not Applicable PATIENT PRESENTS WITH AN IMPLANTABLE OR ATTACHED NIGHT CLERK: No ALLERGIES: Reviewed and unchanged CONTRAST ALLERGY: NO. EXAM: MRI - CONTRAST TYPE: GROUP II PERIPHERAL IV DATA: Inpatient - refer to LDA documentation RADIOLOGY DEPARTMENT: MR; Exam(s) Completed: Head: Routine Brain Localization. Anesthesia: No. Aromatherapy Administered: No SIGNATURE: RT Arlene(R) PATIENT NAME: Christina Macias DATE: July 11, 2025 TIME: 11:45 PM Normal [facility] Absolute lymphocyte countOrd ered By: Gwen Helm on 07-11-2025 Lymphocytes Auto (Unsp spec) [#/Vol] 1.18 10*3/uL 0.83-4.51 [facility] Absolute neutrophil countOrd ered By: Gwen Helm on 07-11-2025 Neutrophils (Bld) [#/Vol] 11.5 10*3/uL High 2.0-7.7 [facility] Anion gap in Serum or Plasma Ordered By: Gwen Helm on 07-11-2025 Anion gap [Moles/Vol] 15 mmol/L 5-15 [facility] Automated lymphocyte count a s percentage of total leukocytesOrdered By: Gwen Helm on 07-11-2025 Lymphocytes/100 WBC Auto (Unsp spec) 8.8 % Low 19-41 [facility] BUN/creatinine ratioOrdered By: Gwen Helm on 07-11-2025 Urea nitrogen/Creatinine [Mass ratio] 29.6 mg/mg High 10-20 [facility] Basic Metabolic Profile (BMP )on 07-11-2025 BUN/CRE 29.6 RATIO High 10-20 [facility] Comment on above: Performed By: #### L 100.0100, L500.2500 #### [facility] Laboratory [address] [place], [address] Calcium [Mass/Vol] 9.9 mg/dL Normal 7.6-11.0 [facility] Comment on above: Performed By: #### L 100.0100, L500.2500 #### [facility] [address] [place], [address] Chloride [Moles/Vol] 97 mmol/L Low 98-108 [facility] Comment on above: Performed By: #### L 100.0100, L500.2500 #### [facility] [address] [place], [address] CO2 [Moles/Vol] 22.0 mmol/L Normal 21.0-32.0 [facility] Comment on above: Performed By: #### L 100.0100, L500.2500 #### [facility] [address] [place], [address] Creatinine [Mass/Vol] 0.59 mg/dL Low 0.70-1.20 [facility] Comment on above: Performed By: #### L 100.0100, L500.2500 #### [facility] [address] [place], [address] ECRCL 60.38 ml/min Normal 50-250 [facility] Comment on above: Performed By: #### L 100.0100, L500.2500 #### [facility] [address] [place], [address] GAP 15 Normal 5-15 [facility] Comment on above: Performed By: #### L 100.0100, L500.2500 #### [facility] [address] [place], [address] GFR/1.73 sq M.predicted among non-blacks MDRD (S/P/Bld) [Vol rate/Area] 96 mL/min/{1.73_m2} Normal >60 [facility] Comment on above: Result Comment: mL/m in/1.73m2 CKD-EPI Creatinine Equation (2020) Performed By: #### L 100.0100, L500.2500 #### [facility] [address] [place], [address] Glucose [Mass/Vol] 151 mg/dL High 70-99 [facility] Comment on above: Performed By: #### L 100.0100, L500.2500 #### [facility] [address] [place], [address] Potassium [Moles/Vol] 3.4 mmol/L Normal 3.3-5.1 [facility] Comment on above: Result Comment: Hemo lysis present, Results??could be affected. ?? Performed By: #### L 100.0100, L500.2500 #### [facility] [address] [place], [address] Sodium [Moles/Vol] 134 mmol/L Normal 133-145 [facility] Comment on above: Performed By: #### L 100.0100, L500.2500 #### [facility] [address] [place], [address] Urea nitrogen [Mass/Vol] 18 mg/dL Normal 4-19 [facility] Comment on above: Performed By: #### L 100.0100, L500.2500 #### [facility] [address] [place], [address] Basic metabolic 2000 panelon 07-11-2025 Anion gap [Moles/Vol] 12 mmol/L Normal 8-15 [facility] Comment on above: Order Comment: Speci men Type: BLOOD SPECIMENOrdering Facility: [facility] Address: [address] [place] [address] Performed By: #### 2 4321-2 ####[facility] LABORATORYCLIA [id number] [place] [address] [place] Calcium [Mass/Vol] 9.7 mg/dL Normal 8.5-10.2 [facility] Comment on above: Order Comment: Speci men Type: BLOOD SPECIMENOrdering Facility: [facility] Address: [address] [place] [address] Performed By: #### 2 4321-2 ####[facility] LABORATORYCLIA [id number] [place] [address] [place] Chloride [Moles/Vol] 94 mmol/L Low 98-107 [facility] Comment on above: Order Comment: Speci men Type: BLOOD SPECIMENOrdering Facility: [facility] Address: [address] [place] [address] Performed By: #### 2 4321-2 ####[facility] LABORATORYCLIA [id number] [address] [place] CO2 [Moles/Vol] 24 mmol/L Normal 22-30 [facility] Comment on above: Order Comment: Speci men Type: BLOOD SPECIMENOrdering Facility: [facility] Address: [address] [place] [address] Performed By: #### 2 4321-2 ####[facility] LABORATORYCLIA [id number] [place] [address] [place] Creatinine [Mass/Vol] 0.48 mg/dL Low 0.58-0.96 [facility] Comment on above: Order Comment: Speci men Type: BLOOD SPECIMENOrdering Facility: [facility] Address: [address] [place] [address] Performed By: #### 2 4321-2 ####[facility] LABORATORYCLIA [id number] [address] [place] eGFRcr SerPlBld CKD-EPI 2020 101 mL/min/1.73m??? Normal >=60 [facility] Comment on above: Order Comment: Speci men Type: BLOOD SPECIMENOrdering Facility: [facility] Address: [address] [place] [address] Result Comment: Princess mated Glomerular Filtration Rate (eGFR) is calculated using the 2020 CKD-EPI creatinine equation. This equation utilizes serum creatinine, sex, and age as parameters. The creatinine assay has traceable calibration to isotope dilution-mass spectrometry. Refer to KDIGO guidelines for clinical interpretation. In patients with unstable renal function, e.g. those with acute kidney injury, the eGFR may not accurately reflect actual GFR. Performed By: #### 2 4321-2 ####[facility] LABORATORYCLIA [id number] [address] [place] Glucose [Mass/Vol] 165 mg/dL High 74-99 [facility] Comment on above: Order Comment: Speci men Type: BLOOD SPECIMENOrdering Facility: [facility] Address: [address] [place] [address] Result Comment: The [place] Diabetes Association (ADA) provides guidance for cutoff [...] Standards of Medical Care in Diabetes 2016, [place] [employer]. Diabetes Care. 2016.39(Suppl 1). Performed By: #### 2 4321-2 ####[facility] LABORATORYCLIA [id number] [address] [place] Potassium [Moles/Vol] 3.4 mmol/L Low 3.7-5.1 [facility] Comment on above: Order Comment: Speci men Type: BLOOD SPECIMENOrdering Facility: [facility] Address: [address] [place] [address] Performed By: #### 2 4321-2 ####[facility] LABORATORYCLIA [id number] [address] [place] Sodium [Moles/Vol] 130 mmol/L Low 136-144 [facility] Comment on above: Order Comment: Speci men Type: BLOOD SPECIMENOrdering Facility: [facility] Address: [address] [place] [address] Performed By: #### 2 4321-2 ####[facility] LABORATORYCLIA [id number] [address] [place] Urea nitrogen [Mass/Vol] 13 mg/dL Normal 7-21 [facility] Comment on above: Order Comment: Speci men Type: BLOOD SPECIMENOrdering Facility: [facility] Address: [address] [place] [address] Performed By: #### 2 4321-2 ####[facility] LABORATORYCLIA [id number] [place] [address] [place] Basophil percentageOrdered B y: Gwen Helm on 07-11-2025 Basophils/100 WBC (Bld) 0.3 % 0-1 [facility] Bilirubin Test strip Ql (U)O rdered By: Gwen Helm on 07-11-2025 Bilirubin Ql (U) Negative Negative [facility] Brain/Head without Contrasto n 07-11-2025 Brain/Head without Contrast [facility] Imaging Services [address] [place] [address] Brain/Head without Contrast MR#: [id number] Acct: [id number] Name: CHRISTINA MACIAS Rep #: [id number] : 1955 F 69 From: Bishop Hamm MD PCP: Dr. Andrew Billingsley MD Status: REG ER Study: Brain/Head without Contrast Date of Exam: 12/04 Exam# [id number] Ordering Dr: Gwen Helm DO PROCEDURE: BRAIN/HEAD WITHOUT CONTRAST 07/11/2025 REASON FOR EXAM: DIZZINESS TECHNIQUE: Procedure Code: CTBR Modality: CT Procedure: BRAIN/HEAD WITHOUT CONTRAST Coronal and Sagittal reconstruction series were provided. One or more dose reduction techniques were used (e.g., Automated exposure control, adjustment of the mA and/or kV according to patient size, use of iterative reconstruction technique. RADIATION DOSE SUMMARY: CTDlvol: 45 mGy DLP: 829 mGycm COMPARISON: December 13, 2024 FINDINGS: Brain: Heterogeneous low-density is shown within the right cerebellar hemisphere suggestive of vasogenic edema. Similar finding is seen in the right temporal and occipital lobe. A nearly isodense, oval focus is seen in the medial temporal lobe that may represent an underlying mass. No hemorrhage is seen. No extra-axial collection. Midline subfalcine shift to the left 6.4 mm. CSF Spaces: Mild generalized cerebral atrophy Sinuses/Mastoids: Clear. Septal deviation to the right. Bones: No fracture. CT/Brain/Head without Contrast IMPRESSION: 1. Low-density in the right temporal and occipital lobe and also of the right cerebellar hemisphere suggestive of vasogenic edema likely from underlying masses. This is new compared to December 13, 2024. Mild subfalcine herniation to the left 6.4 mm. Contrast-enhanced MRI may be helpful. 2. No hemorrhage. Reading Location: [id number] CC: Dr. Gwen Helm DO; Dr. Andrew Billingsley MD Grab Hooker: Signed Normal [facility] CBC W Auto Differential pane l (Bld)on 07-11-2025 Basophils (Bld) [#/Vol] 0.04 10*3/uL Normal <0.11 [facility] Comment on above: Order Comment: Speci men Type: BLOOD SPECIMENOrdering Facility: [facility] Address: [address] [place] [address] Performed By: #### 5 7021-8 ####[facility]ORATORYCLIA [id number] [address] [place] Basophils/100 WBC (Bld) 0.2 % Normal [facility] Comment on above: Order Comment: Speci men Type: BLOOD SPECIMENOrdering Facility: [facility] Address: [address] [place] [address] Performed By: #### 5 7021-8 ####[facility]ORATORYCLIA [id number] [place] [address] [place] Differential cell count method Nom (Bld) Auto Normal [facility] Comment on above: Order Comment: Speci men Type: BLOOD SPECIMENOrdering Facility: [facility] Address: [address] [place] [address] Performed By: #### 5 7021-8 ####[facility]ORATORYCLIA [id number] [place] [address] [place] Eosinophils (Bld) [#/Vol] 10*3/uL Normal <0.46 [facility] Comment on above: Order Comment: Speci men Type: BLOOD SPECIMENOrdering Facility: [facility] Address: [address] [place] [address] Performed By: #### 5 7021-8 ####[facility]ORATORYCLIA [id number] [place] [address] [place] Eosinophils/100 WBC (Bld) 0.1 % Normal [facility] Comment on above: Order Comment: Speci men Type: BLOOD SPECIMENOrdering Facility: [facility] Address: [address] [place] [address] Performed By: #### 5 7021-8 ####[facility] LABORATORYCLIA [id number] [address] [place] Erythrocyte distribution width (RBC) [Ratio] 12.8 % Normal 11.5-15.0 [facility] Comment on above: Order Comment: Speci men Type: BLOOD SPECIMENOrdering Facility: [facility] Address: [address] [place] [address] Performed By: #### 5 7021-8 ####[facility] LABORATORYCLIA [id number] [address] [place] Hematocrit (Bld) [Volume fraction] 42.9 % Normal 36.0-46.0 [facility] Comment on above: Order Comment: Speci men Type: BLOOD SPECIMENOrdering Facility: [facility] Address: [address] [place] [address] Performed By: #### 5 7021-8 ####[facility] LABORATORYCLIA [id number] [address] [place] Hemoglobin (Bld) [Mass/Vol] 14.4 g/dL Normal 11.5-15.5 [facility] Comment on above: Order Comment: Speci men Type: BLOOD SPECIMENOrdering Facility: [facility] Address: [address] [place] [address] Performed By: #### 5 7021-8 ####[facility] LABORATORYCLIA [id number] [address] [place] Immature granulocytes (Bld) [#/Vol] 0.06 10*3/uL Normal <0.10 [facility] Comment on above: Order Comment: Speci men Type: BLOOD SPECIMENOrdering Facility: [facility] Address: [address] [place] [address] Performed By: #### 5 7021-8 ####[facility] LABORATORYCLIA [id number] [address] [place] Immature granulocytes/100 WBC (Bld) 0.3 % Normal [facility] Comment on above: Order Comment: Speci men Type: BLOOD SPECIMENOrdering Facility: [facility] Address: [address] [place] [address] Performed By: #### 5 7021-8 ####[facility] LABORATORYCLIA [id number] [address] [place] Lymphocytes (Bld) [#/Vol] 1.32 10*3/uL Normal 1.00-4.00 [facility] Comment on above: Order Comment: Speci men Type: BLOOD SPECIMENOrdering Facility: [facility] Address: [address] [place] [address] Performed By: #### 5 7021-8 ####[facility] LABORATORYCLIA [id number] [address] Lymphocytes/100 WBC (Bld) 7.5 % Normal [facility] Comment on above: Order Comment: Speci men Type: BLOOD SPECIMENOrdering Facility: [facility] Address: [address] [place] [address] Performed By: #### 5 7021-8 ####[facility] LABORATORYCLIA [id number] [address] [place] MCH (RBC) [Entitic mass] 27.6 pg Normal 26.0-34.0 [facility] Comment on above: Order Comment: Speci men Type: BLOOD SPECIMENOrdering Facility: [facility] Address: [address] [place] [address] Performed By: #### 5 7021-8 ####[facility] LABORATORYCLIA [id number] [address] [place] MCHC (RBC) [Mass/Vol] 33.6 g/dL Normal 30.5-36.0 [facility] Comment on above: Order Comment: Speci men Type: BLOOD SPECIMENOrdering Facility: [facility] Address: [address] [place] [address] Performed By: #### 5 7021-8 ####[facility] LABORATORYCLIA [id number] [place] [address] [place] MCV (RBC) [Entitic vol] 82.2 fL Normal 80.0-100.0 [facility] Comment on above: Order Comment: Speci men Type: BLOOD SPECIMENOrdering Facility: [facility] Address: [address] [place] [address] Performed By: #### 5 7021-8 ####[facility] LABORATORYCLIA [id number] [address] [place] Monocytes (Bld) [#/Vol] 0.20 10*3/uL Normal <0.87 [facility] Comment on above: Order Comment: Speci men Type: BLOOD SPECIMENOrdering Facility: [facility] Address: [address] [place] [address] Performed By: #### 5 7021-8 ####[facility] LABORATORYCLIA [id number] [address] [facility] Monocytes/100 WBC (Bld) 1.1 % Normal [facility] Comment on above: Order Comment: Speci men Type: BLOOD SPECIMENOrdering Facility: [facility] Address: [address] [place] [address] Performed By: #### 5 7021-8 ####[facility] LABORATORYCLIA [id number] [address] [place] Neutrophils (Bld) [#/Vol] 15.99 10*3/uL High 1.45-7.50 [facility] Comment on above: Order Comment: Speci men Type: BLOOD SPECIMENOrdering Facility: [facility] Address: [address] [place] [address] Performed By: #### 5 7021-8 ####[facility] LABORATORYCLIA [id number] [address] [place] Neutrophils/100 WBC (Bld) 90.8 % Normal [facility] Comment on above: Order Comment: Speci men Type: BLOOD SPECIMENOrdering Facility: [facility] Address: [address] [place] [address] Performed By: #### 5 7021-8 ####[facility] LABORATORYCLIA [id number] [address] [place] Nucleated RBC (Bld) [#/Vol] 10*3/uL Normal <0.01 [facility] Comment on above: Order Comment: Speci men Type: BLOOD SPECIMENOrdering Facility: [facility] [facility] Address: [facility] [place] [address] Performed By: #### 5 7021-8 ####[facility] LABORATORYCLIA [id number] [address] [place] Nucleated RBC/100 WBC (Bld) [Ratio] 0.0 /100 WBC Normal [facility] Comment on above: Order Comment: Speci men Type: BLOOD SPECIMENOrdering Facility: [facility] Address: [address] [place] [address] Performed By: #### 5 7021-8 ####[facility] LABORATORYCLIA [id number] [address] [place] Platelet mean volume (Bld) [Entitic vol] 9.9 fL Normal 9.0-12.7 [facility] Comment on above: Order Comment: Speci men Type: BLOOD SPECIMENOrdering Facility: [facility] Address: [address] [place] [address] Performed By: #### 5 7021-8 ####[facility] LABORATORYCLIA [id number] [address] [place] Platelets (Bld) [#/Vol] 302 10*3/uL Normal 150-400 [facility] Comment on above: Order Comment: Speci men Type: BLOOD SPECIMENOrdering Facility: [facility] Address: [facility] [place] [address] Performed By: #### 5 7021-8 ####[facility] LABORATORYCLIA [id number] [place] [address] [place] RBC (Bld) [#/Vol] 5.22 10*6/uL High 3.90-5.20 [facility] Comment on above: Order Comment: Speci men Type: BLOOD SPECIMENOrdering Facility: [facility] Address: [address] [place] [address] Performed By: #### 5 7021-8 ####[facility] LABORATORYCLIA [id number] [place] [address] [place] WBC (Bld) [#/Vol] 17.63 10*3/uL High 3.70-11.00 [facility] Comment on above: Order Comment: Speci men Type: BLOOD SPECIMENOrdering Facility: [facility] Address: [address] [id number] Performed By: #### 5 7021-8 ####[facility] LABORATORYCLIA [id number] [place] [id number] [place] CBC W/Diff, Automatedon 09-0 -2024 Absolute Lymph 1.18 X10 3/uL Normal 0.83-4.51 [facility] Comment on above: Performed By: #### L 100.0100, L500.2500 #### [facility] [address] [place], [address] Absolute Neut 11.5 X10 3/uL High 2.0-7.7 [facility] Comment on above: Performed By: #### L 100.0100, L500.2500 #### [facility] [address] [place], [address] Basophils/100 WBC (Bld) 0.3 % Normal 0-1 [facility] Comment on above: Performed By: #### L 100.0100, L500.2500 #### [facility] [address] [place], [address] Eosinophils/100 WBC (Bld) 0.7 % Normal 0-5 [facility] Comment on above: Performed By: #### L 100.0100, L500.2500 #### [facility] [address] [place], [address] Erythrocyte distribution width (RBC) [Ratio] 12.9 % Normal 11.6-14.6 [facility] Comment on above: Performed By: #### L 100.0100, L500.2500 #### [facility] [address] [place], [address] Hematocrit (Bld) [Volume fraction] 40.8 % Normal 37-47 [facility] Comment on above: Performed By: #### L 100.0100, L500.2500 #### [facility] [address] [place], [address] Hemoglobin (Bld) [Mass/Vol] 14.0 g/dL Normal 12.0-15.0 [facility] Comment on above: Performed By: #### L 100.0100, L500.2500 #### [facility] [address] [place], [address] IG% 0.400 Normal 0.0-0.9 [facility] Comment on above: Result Comment: IG% - Immature Granulocytes (promyelocytes, myelocytes and metamyelocytes) > 1% indicates that a LEFT SHIFT is Present. Performed By: #### L 100.0100, L500.2500 #### [facility] [address] [place], [address] Lymphocytes/100 WBC (Bld) 8.8 % Low 19-41 [facility] Comment on above: Performed By: #### L 100.0100, L500.2500 #### [facility] [address] [place], [address] MCH (RBC) [Entitic mass] 27.9 pg Normal 27.0-32.0 [facility] Comment on above: Performed By: #### L 100.0100, L500.2500 #### [facility] [address] [place], [address] MCHC (RBC) [Mass/Vol] 34.3 g/dL Normal 32-36 [facility] Comment on above: Performed By: #### L 100.0100, L500.2500 #### [facility] [address] [place], [address] MCV (RBC) [Entitic vol] 81.3 fL Normal 81-99 [facility] Comment on above: Performed By: #### L 100.0100, L500.2500 #### [facility] [address] [place], [address] Monocytes/100 WBC (Bld) 4.0 % Normal 0-10 [facility] Comment on above: Performed By: #### L 100.0100, L500.2500 #### [facility] [address] [place], [address] Neutrophils/100 WBC (Bld) 85.8 % High 47-70 [facility] Comment on above: Performed By: #### L 100.0100, L500.2500 #### [facility] [address] [place], [address] Nucleated RBC (Bld) [#/Vol] 0 10*3/uL Normal 0-5 [facility] Comment on above: Performed By: #### L 100.0100, L500.2500 #### [facility] [address] [place], [address] Platelet mean volume (Bld) [Entitic vol] 11.0 fL Normal 6.2-12.0 [facility] Comment on above: Performed By: #### L 100.0100, L500.2500 #### [facility] [address] [place], [address] Platelets (Bld) [#/Vol] 291 10*3/uL Normal 150-450 [facility] Comment on above: Performed By: #### L 100.0100, L500.2500 #### [facility] [address] [place], [address] RBC (Bld) [#/Vol] 5.02 10*6/uL Normal 4.2-5.4 [facility] Comment on above: Performed By: #### L 100.0100, L500.2500 #### [facility] [address] [place], [address] RDW SD 38.0 fl Normal 35.1-43.9 [facility] Comment on above: Performed By: #### L 100.0100, L500.2500 #### [facility] [address] [place], [address] WBC (Bld) [#/Vol] 13.4 10*3/uL High 4.4-11.0 [facility] Comment on above: Performed By: #### L 100.0100, L500.2500 #### [facility] [address] [place], [address] Carbon dioxide, total [Moles /volume] in Central venous bloodOrdered By: Gwen Helm on 07-11-2025 CO2 [Moles/Vol] 22.0 mmol/L 21.0-32.0 [facility] Chloride assayOrdered By: Vasu Helm on 07-11-2025 Chloride [Moles/Vol] 97 mmol/L Low 98-108 [facility] Emergency Department Summary on 07-11-2025 Emergency Department Summary [facility] Medical Records Department [address] [place] [address] Emergency Department Summary 07/11/25 MR#: [id number] Acct: [id number] Name: CHRISTINA MACIAS Rep #: [id number] : 1955 69 From: Gwen Helm DO PCP: Dr. Andrew Billingsley MD Status:REG ER Location: ED HPI History of Present Illness Chief Complaint: Dizziness Informant: patient Onset/Context/Timing Onset: Weeks (1) Context: Gradual Onset Timing: Continuous Quality: Lightheaded, off-balance Location: Generalized Worsened by: Turning her head Relieved by: Nothing Narrative Narrative: Patient presents with dizziness and lightheadedness for the past week. Patient states it came on gradually. Patient states she feels like she is off balance when she is walking. Patient admits to some fatigue and decreased appetite. Patient states she was recently started on cefuroxime 5 days ago. Patient states she has not had any improvement with this. Patient states her dizziness is worse when she turns her head. Patient admits to some subjective chills. Patient admits to a frontal headache. Patient admits to some nausea and vomiting. Patient admits to some pain in her right ear. [facility] Medical History Diverticulitis Vision problems GERD (gastroesophageal [...] DAILY #90 tabs 09/15/24 U nknown Rx metoprolol succinate 25 mg 25 mg PO QDAY 01/27/25 Unknown His tory tablet,extended release 24 hr cefuroxime axetil 250 mg tablet 250 mg PO BID 7 days #14 tabs 06/11 06/03 Unknown Rx Allergy/AdvReac Type Severity Reaction Status Date / Time Seasonal Allergies: Uncoded Allergy Intermediate Itching Verified 07/11/25 10:43 Family History Brother Alcoholism Hypertension Mother Cancer lung Hypertension Grandmother Arthritis Hypertension Grandfather Arthritis Hypertension Father Myocardial infarction at 46 years old Hypertension Other Diabetes Diverticular disease Heart disease Surgical History Enlarged tonsils and adenoids Hx of cholecystectomy Hx of arthroscopic knee surgery Status post total hip replacement, right Social History adopted: No household members: spouse housing: apartment current occupational status: retired Smoking Status: Former smoker alcohol intake: never details: occasional beer or ryann substance use type: does not use well-balanced diet: daily or most days caffeine: Yes eating out: 1-3 times/week during the past year weight has: remained stable what type of physical activity do you participate in: walking aleksey/roman catholic: Latter-Day seatbelt use: always do you feel safe at home: Yes ROS ROS ED Constitutional Constitutional ED: Reports chills and subjective; Denies fever(s) Eyes Eyes: Denies blurry vision or change in vision ENT ENT ED: Reports ear pain right; Denies rhinorrhea or sore throat Cardiovascular Cardiovascular: Denies chest pain or palpitations Respiratory/Chest Respiratory/Chest: Reports cough; Denies dyspnea Gastrointestinal Gastrointestinal: Reports nausea and vomiting Genitourinary Genitourinary ED: Denies dysuria or hematuria Musculoskeletal Musculoskeletal: Denies back pain or neck pain Integumentary Denies abscess or rash Neurologic Neurologic: Reports headache(s); Denies weakness Allergic/Immunologic Allergic/Immunologic ED: Denies mouth swelling or urticaria EXAM Physical Exam Const Vital Signs: 07/11/25 10:43 07/11/25 11:42 07/11/25 13:00 Temperature 98.2 F Temperature Source Oral Pulse Rate 94 81 80 Pulse Rate [Lying] Pulse Rate [Sitting (for 1 minute prior to obtaining)] Pulse Rate [Standing (for 1 minute prior to obtaining)] Respiratory Rate 16 15 13 Blood Pressure 177/83 H 156/74 H 114/87 H Blood Pressure [Lying] Blood Pressure [Sitting (for 1 minute prior to obtaining)] Blood Pressure [Standing (for 1 minute prior to obtaining)] Blo (more content not included)... Normal [facility] Eosinophil percentageOrdered By: Gwen Helm on 07-11-2025 Eosinophils/100 WBC (Bld) 0.7 % 0-5 [facility] Erythrocyte distribution wid th ratioOrdered By: Gwen Helm on 07-11-2025 Erythrocyte distribution width (RBC) [Ratio] 12.9 % 11.6-14.6 [facility] Erythrocyte distribution wid th standard deviationOrdered By: Gwen Helm on 07-11-2025 Erythrocyte distribution width (RBC) [Ratio] 38.0 fl 35.1-43.9 [facility] Glomerular filtration rate ( GFR) estimation/1.73 sq m using serum, plasma, or whole bOrdered By: Gwen Helm on 07-11-2025 GFR/1.73 sq M.predicted among non-blacks MDRD (S/P/Bld) [Vol rate/Area] 96 mL/min/{1.73_m2} >60 [facility] Comment on above: mL/min/1.73m2 CKD-EP I Creatinine Equation (2020) HISTORY PHYSICALon HISTORY PHYSICAL HNO ID: [id number] Author: NED GARCIA DO Service: Hospital Medicine Author Type: Physician Type: H&P Filed: 07/11/2025 22:04 Note Text: DEPARTMENT OF HOSPITAL MEDICINE HISTORY AND PHYSICAL EXAM SERVICE DATE: 07/11/2025 SERVICE TIME: 07/11/2025 Primary Care Physician: Andrew Billingsley MD NIGHT AND WEEKEND COVERAGE: [place] COVERAGE: After 7pm, please call cross cover pager #[phone] Subjective CHIEF COMPLAINT: dizziness HPI: This is a very pleasant 69 year old female with history of HTN, IBS presenting from home with feeling off balance, Patient describes that she has been sick with a sinus infection and has been taking cefuroxime at home for it. She felt very off balance today and had some nausea so she got checked out. She thought it was more related to her sinus and ear given her current tx. She denies hx cancer, weight loss, blood in stool or tarry stools. She was seen at the [place] [facility] where she had a CT brain showing low-density in the R temporal and occipital lobe and R cerebellar hemisphere suggestive of vasogenic edema from underlying masses with mild subfalcine herniation of 6.4 mm without hemorrhage. WBC 13.4 at [place] hgb 14, platelet 291, Na 134, K 3.4, Cr 0.59, UA neg for infection. She was discussed with NS who gave gelacio for the floor and given a dose of dexamethasone. She is admitted for further workup. PAST MEDICAL HISTORY Diagnosis Date Diverticulosis of colon (without mention of hemorrhage) colonoscopy 08/14 Essential hypertension, benign IBS (irritable bowel syndrome) Pneumonia 08/2014 PAST SURGICAL HISTORY Procedure Laterality Date COLONOSCOPY 06/2010 DILATION AND CURETTAGE DXAND/THER NONOBSTETRIC Dilation AND curettage LAPAROSCOPY SURG CHOLECYSTECTOMY 09/2009 PAST SURGICAL HISTORY OF [id number] bilat knee arthroscopic TONSILLECTOMY AND ADENOIDECTOMY Tonsil/adenoidectomy FAMILY HISTORY Problem Relation Age of Onset Ischemic Heart Disease Father age 46 Cancer Mother lung Ischemic Heart Disease Other nephew SOCIAL HISTORY[1] MEDICATIONS: Reviewed Prior to Admission Medications Prescriptions Last Dose Informant Patient Reported? Taking? Lactobacillus acidophilus 10 billion cell cap Yes No Sig: Take once daily amLODIPine (NORVASC) 5 mg tablet No No Sig: Take 1 tablet by mouth twice daily. Patient taking differently: Take 5 mg by mouth once daily. aspirin(BABY ASPIRIN 81 MG CHEWABLE TAB) Patient Yes No Sig: Take one(1) tablet daily. calcium, elemental, tab Yes No Sig: Take 1 tablet by mouth once daily. cetirizine (ZYRTEC) 10 mg tablet No No Sig: Take 1 tablet by mouth once daily. chlorthalidone (HYGROTON) 25 mg tablet No No Sig: Take 1 tablet by mouth once daily. lisinopril (ZESTRIL, PRINIVIL) 20 mg tablet No No Sig: Take 1 tablet by mouth in the morning and 1 tablet in the evening metoprolol succinate ER (TOPROL XL) 50 mg 24 hr tablet No No Sig: Take 1 tablet by mouth twice daily. multivitamins(DAILY VITAMIN TAB) Patient Yes No Sig: Take one(1) tablet daily. Facility-Administered Medications: None ALLERGIES No Known Allergies REVIEW OF SYSTEM: 10 point ROS negative but as noted in HPI Objective PHYSICAL EXAM: BP 183/80 Pulse 80 Temp (Src) 97.5 (Oral) SpO2 93% O2 Therapy: Room Air Physical Exam Performed: GENERAL: Alert, no distress, cooperative SKIN: Skin color, texture, turgor normal. No rashes or lesions. HEAD/SINUSES: No significant findings EYES: PERRLA, EOMI NECK: No jugulovenous distention, No carotid bruits, Carotid pulse normal contour, Supple LUNGS: Lungs clear to auscultation, Good diaphragmatic excursion CARDIAC: Normal S1 and S2; no rubs, murmurs, or gallops ABDOMEN: Abdomen soft, non-tender, BS normal, No masses or organomegaly EXTREMITIES: Extremities normal, no deformities, edema, clubbing or skin discoloration. Good capillary refill., No ulcers NEURO: Sensation grossly intact, Cranial nerves II-XII intact Lines, Drains, and Airways None Reviewed lines and needs to be continued: REASONS: Difficulty in obtaining/maintaining access DATA: Diagnostic tests reviewed for today's visit: Most recent labs and imaging results. Assessment AND Plan 69 year old female presenting with feeling off balance and found to have #brain mass with vasogenic edema and concern for subfalcine herniation spoke to NS and they will decide about further decadron/keppra-deemed stable for floor -plan for ct chest, abd/pelvis, MRI brain, oncology consult -appreciate NS recs -neuro checks #recent sinus infection was on cefuroxime will hold as patient reports bothering her stomach, was half way through seven day script, will complete with rocephin #leukocytosis may be more reactive will repeat in am #HTN on metoprolol 25 mg at night and chlorthalidone 25 mg in am, monitor K on diuretic Code status discussed and patient elects full code Hold chemical dvt ppx until NS farida (more content not included)... Normal [facility] Hematocrit Auto (Bld) [Volum e fraction]Ordered By: Gwen Helm on 07-11-2025 Hematocrit (Bld) [Volume fraction] 40.8 % 37-47 [facility] Hemoglobin measurementOrdere d By: Gwen Helm on 07-11-2025 Hemoglobin (Bld) [Mass/Vol] 14.0 g/dL 12.0-15.0 [facility] Immature granulocytes/100 WB C Auto (Bld)Ordered By: Gwen Helm on 07-11-2025 Immature granulocytes/100 WBC (Bld) 0.400 % 0.0-0.9 [facility] Comment on above: IG% - Immature Granu locytes (promyelocytes, myelocytes and metamyelocytes) > 1% indicates that a LEFT SHIFT is Present. Ketones Test strip Ql (U)Ord ered By: Gwen Helm on 07-11-2025 Ketones Ql (U) 50 mg/dl High Negative [facility] MCV (mean corpuscular volume ) determinationOrdered By: Gwen Helm on 09-01-2025 MCV (RBC) [Entitic vol] 81.3 fL 81-99 [facility] MRI BRAIN WO/W IVCONon 07-11 MRI BRAIN WO/W IVCON * * *Final Report* * * DATE OF EXAM: Jul 11 2025 11:58PM AMALIA Cook - MRI BRAIN WO/W IVCON / PROCEDURE REASON: Brain/[employer] ACCOUNT EXECUTIVE neoplasm, monitor * * * * Physician Interpretation * * * * EXAMINATION: MRI BRAIN WO/W IVCON CLINICAL HISTORY: Brain mass TECHNIQUE: Routine brain MRI protocol without and with contrast including diffusion images. MQ: [id number] Contrast: 6 mL Elucirem IV COMPARISON: MRI brain 12/01/2009, outside hospital CT brain 07/11/2025 RESULT: Acute Change: There is no evidence of restricted diffusion to suggest an acute infarct. Hemorrhage: Several of the enhancing brain lesions demonstrate susceptibility along the margins, compatible with intralesional hemorrhage. Mass Lesion/ Mass Effect: There are numerous peripherally enhancing brain lesions, both supratentorial and infratentorial with surrounding vasogenic edema. The largest lesion is located in the medial right temporal lobe measuring up to approximately 1.7 x 1.9 cm (series 13 image 42). Mass effect is greatest in the right temporal parietal region and right posterior fossa. Leftward midline shift measures up to approximately 0.5 cm at the septum pellucidum. Chronic Change: Scattered punctate foci of increased T2 and FLAIR signal are noted in the supratentorial white matter which is a nonspecific finding, but likely represents minimal chronic microvascular ischemia. Parenchyma: No significant volume loss for age. The brain parenchyma is otherwise within normal limits of signal intensity and morphology. Ventricles: Partial effacement of the fourth ventricle greater on the right. Near complete effacement of the right occipital horn. No definite evidence of ventricular obstruction or entrapment. Skull Base: Hypothalamic and pituitary region are grossly normal. Craniocervical junction is normal. No significant marrow replacement process. Vasculature: Major intracranial arterial structures, and dural venous sinuses show typical flow void, suggesting patency by spin echo criteria. Other: The right mastoid effusion is present, and there is also ill-defined enhancement along the right petrous ridge (series 13 image 31). IMPRESSION: 1. Numerous peripherally enhancing brain lesions with surrounding vasogenic edema, most compatible with metastatic disease. 2. Mass effect is greatest in the right temporal/parietal region and right posterior fossa, with leftward midline shift measuring up to approximately 0.5 cm at the septum pellucidum. Mass effect on the ventricular system as detailed, without evidence of ventricular obstruction. 3. Right mastoid effusion with ill-defined enhancement along the right petrous ridge, indeterminate. Consider dedicated temporal bone CT or MRI on a nonemergent basis. Grab Hooker: ASHOK Transcribe Date/Time: Jul 12 2025 1:56A Dictated by : MICHELLE ASCENCIO MD This examination was interpreted and the report reviewed and electronically signed by: MICHELLE ASCENCIO MD on Jul 12 2025 2:09AM EST [id number] Normal [facility] Mean corpuscular hemoglobin (MCH) determinationOrdered By: Gwen Helm on 07-11-2025 MCH (RBC) [Entitic mass] 27.9 pg 27.0-32.0 [facility] Mean corpuscular hemoglobin concentration (MCHC) determinationOrdered By: Gwen Helm on 07-11-2025 MCHC (RBC) [Mass/Vol] 34.3 g/dL 32-36 [facility] Mean platelet volume determi nationOrdered By: Gwen Helm on 07-11-2025 Platelet mean volume (Bld) [Entitic vol] 11.0 fL 6.2-12.0 [facility] Microscopic analysis of urin e for red blood cells (RBC)Ordered By: Gwen Helm on 07-11-2025 Microscopic analysis of urine for red blood cells (RBC) 0-5 SEEN /hpf 0-5 [facility] Monocyte percentageOrdered B y: Gwen Helm on 07-11-2025 Monocytes/100 WBC (Bld) 4.0 % 0-10 [facility] Mucus LM Ql (Urine sed)Order ed By: Gwen Helm on 07-11-2025 Mucus Ql (Urine sed) 2+ /hpf [facility] Neutrophil percentageOrdered By: Gwen Helm on 07-11-2025 Neutrophils/100 WBC (Bld) 85.8 % High 47-70 [facility] Nitrite Test strip Ql (U)Ord ered By: Gwen Helm on 07-11-2025 Nitrite Ql (U) Negative Negative [facility] Nucleated red blood cell per centageOrdered By: Gwen Helm on 07-11-2025 Nucleated RBC/100 WBC (Bld) [Ratio] 0 % 0-5 [facility] Platelet countOrdered By: Vasu Helm on 07-11-2025 Platelets (Bld) [#/Vol] 291 10*3/uL 150-450 [facility] Potassium measurement (mass/ volume)Ordered By: Gwen Helm on 07-11-2025 Potassium (Unsp spec) [Mass/Vol] 3.4 mmol/L 3.3-5.1 [facility] Comment on above: Hemolysis present, R esults could be affected. Protein Test strip Ql (U)Ord ered By: Gwen Helm on 07-11-2025 Protein Ql (U) 100 mg/dl High Negative [facility] RBC Auto (Bld) [#/Vol]Ordere d By: Gwen Helm on 07-11-2025 RBC (Bld) [#/Vol] 5.02 10*6/uL 4.2-5.4 [facility] Serum creatinine measurement (mass/volume)Ordered By: Gwen Helm on 07-11-2025 Creatinine [Mass/Vol] 0.59 mg/dL Low 0.70-1.20 [facility] Serum glucose measurement (m ass/volume)Ordered By: Gwen Helm on 07-11-2025 Glucose [Mass/Vol] 151 mg/dL High 70-99 [facility] Serum or plasma calcium dequan urement (mass/volume)Ordered By: Gwen Helm on 07-11-2025 Calcium [Mass/Vol] 9.9 mg/dL 7.6-11.0 [facility] Serum or plasma urea nitroge n measurement (mass/volume)Ordered By: Gwen Helm on 07-11-2025 Urea nitrogen [Mass/Vol] 18 mg/dL 4-19 [facility] Sodium levelOrdered By: Gwen Helm on 07-11-2025 Sodium [Moles/Vol] 134 mmol/L 133-145 [facility] Squamous epithelial cells de tection in urine sediment by light microscopyOrdered By: Gwen Helm on 07-11-2025 Epithelial cells.squamous LM Ql (Urine sed) 0-5 SEEN /hpf 5-10 [facility] Urinalysis, Completeon 07-11 EPI,SQUAMOUS 0-5 SEEN Normal 5-10 [facility] Comment on above: Order Comment: CLEAN CATCH Performed By: #### L 100.0100, L500.4050, L500.4100, L501.5200, L501.9520, L503.0106, L506.1001 #### [facility] [address] [place], [address] Mucus Ql (Urine sed) 2+ /hpf Normal [facility] Comment on above: Order Comment: CLEAN CATCH Performed By: #### L 100.0100, L500.4050, L500.4100, L501.5200, L501.9520, L503.0106, L506.1001 #### [facility] [address] [place], [address] RBC 0-5 SEEN Normal 0-5 [facility] Comment on above: Order Comment: CLEAN CATCH Performed By: #### L 100.0100, L500.4050, L500.4100, L501.5200, L501.9520, L503.0106, L506.1001 #### [facility] [address] [place], [address] WBC 0-5 SEEN Normal 0-5 [facility] Comment on above: Order Comment: CLEAN CATCH Performed By: #### L 100.0100, L500.4050, L500.4100, L501.5200, L501.9520, L503.0106, L506.1001 #### [facility] [address] [place], [address] BACTERIA 0 SEEN Normal None Seen [facility] Comment on above: Order Comment: CLEAN CATCH Performed By: #### L 100.0100, L500.4050, L500.4100, L501.5200, L501.9520, L503.0106, L506.1001 #### [facility] [place], [address] Urine clarityOrdered By: Paulette Helm on 07-11-2025 Clarity (U) Clear Clear [facility] Urine color determinationOrd ered By: Gwen Helm on 07-11-2025 Color (U) Yellow Yellow [facility] Urine glucose detectionOrder ed By: Gewn Helm on 07-11-2025 Glucose Ql (U) Normal mg/dl Normal [facility] Urine leukocyte esterase det ection by dipstickOrdered By: Gwen Helm on 07-11-2025 Leukocyte esterase Test strip Ql (U) 25 /ul High Negative [facility] Urine pHOrdered By: Gwen dial on 07-11-2025 pH (U) 6.0 [pH] 5.0 - 8.0 [facility] Urine sediment bacteria coun t by microscopy (number/high power field)Ordered By: Gwen Helm on 07-11-2025 Bacteria LM.HPF (Urine sed) [#/Area] 0 /[HPF] None Seen [facility] Urine specific gravity measu rementOrdered By: Gwen Helm on 07-11-2025 Specific gravity (U) [Rel density] 1.020 1.002-1.030 [facility] Urine urobilinogen measureme ntOrdered By: Gwen Helm on 07-11-2025 Urobilinogen Ql (U) Normal mg/dl Normal [facility] White blood cell (WBC) count Ordered By: Gwen Helm on 07-11-2025 WBC (Bld) [#/Vol] 13.4 10*3/uL High 4.4-11.0 [facility] White blood cell countOrdere d By: Gwen Helm on 07-11-2025 White blood cell count 0-5 SEEN /hpf 0-5 [facility] Absolute lymphocyte countOrd ered By: Andrew Billingsley on 07-05-2025 Lymphocytes Auto (Unsp spec) [#/Vol] 1.73 10*3/uL 0.83-4.51 [facility] Absolute neutrophil countOrd ered By: Andrew Billingsley on 08-26-2025 Neutrophils (Bld) [#/Vol] 8.8 10*3/uL High 2.0-7.7 [facility] Anion gap in Serum or Plasma Ordered By: Andrew Billingsley on 07-05-2025 Anion gap [Moles/Vol] 16 mmol/L High 5-15 [facility] Automated lymphocyte count a s percentage of total leukocytesOrdered By: Andrew Billingsley on 07-05-2025 Lymphocytes/100 WBC Auto (Unsp spec) 14.7 % Low 19-41 [facility] BUN/creatinine ratioOrdered By: Andrew Billingsley on 07-05-2025 Urea nitrogen/Creatinine [Mass ratio] 21.5 mg/mg High 10-20 [facility] Basophil percentageOrdered B y: Andrew Billingsley on 07-05-2025 Basophils/100 WBC (Bld) 0.4 % 0-1 [facility] Bilirubin, totalOrdered By: Andrew Billingsley on 07-05-2025 Bilirubin [Mass/Vol] 0.68 mg/dL 0.00-1.30 [facility] CBC W/Diff, Automatedon 06-11 Absolute Lymph 1.73 X10 3/uL Normal 0.83-4.51 [facility] Comment on above: Performed By: #### L 100.0100, L500.4050, L500.4100, L501.5200, L501.9520, L503.0106, L506.1001 #### [facility] [address] [place], [address] Absolute Neut 8.8 X10 3/uL High 2.0-7.7 [facility] Comment on above: Performed By: #### L 100.0100, L500.4050, L500.4100, L501.5200, L501.9520, L503.0106, L506.1001 #### [facility] [address] [place], [address] Basophils/100 WBC (Bld) 0.4 % Normal 0-1 [facility] Comment on above: Performed By: #### L 100.0100, L500.4050, L500.4100, L501.5200, L501.9520, L503.0106, L506.1001 #### [facility] [address] [place], [address] Eosinophils/100 WBC (Bld) 2.0 % Normal 0-5 [facility] Comment on above: Performed By: #### L 100.0100, L500.4050, L500.4100, L501.5200, L501.9520, L503.0106, L506.1001 #### [facility] [address] [place], [address] Erythrocyte distribution width (RBC) [Ratio] 12.8 % Normal 11.6-14.6 [facility] Comment on above: Performed By: #### L 100.0100, L500.4050, L500.4100, L501.5200, L501.9520, L503.0106, L506.1001 #### [facility] [address] [place], [address] Hematocrit (Bld) [Volume fraction] 39.3 % Normal 37-47 [facility] Comment on above: Performed By: #### L 100.0100, L500.4050, L500.4100, L501.5200, L501.9520, L503.0106, L506.1001 #### [facility] [address] [place], [address] Hemoglobin (Bld) [Mass/Vol] 13.4 g/dL Normal 12.0-15.0 [facility] Comment on above: Performed By: #### L 100.0100, L500.4050, L500.4100, L501.5200, L501.9520, L503.0106, L506.1001 #### [facility] [address] [place], [address] IG% 0.300 Normal 0.0-0.9 [facility] Comment on above: Result Comment: IG% - Immature Granulocytes (promyelocytes, myelocytes and metamyelocytes) > 1% indicates that a LEFT SHIFT is Present. Performed By: #### L 100.0100, L500.4050, L500.4100, L501.5200, L501.9520, L503.0106, L506.1001 #### [facility] [address] [place], [address] Lymphocytes/100 WBC (Bld) 14.7 % Low 19-41 [facility] Comment on above: Performed By: #### L 100.0100, L500.4050, L500.4100, L501.5200, L501.9520, L503.0106, L506.1001 #### [facility] [address] [place], [address] MCH (RBC) [Entitic mass] 28.0 pg Normal 27.0-32.0 [facility] Comment on above: Performed By: #### L 100.0100, L500.4050, L500.4100, L501.5200, L501.9520, L503.0106, L506.1001 #### [facility] [address] [place], [address] MCHC (RBC) [Mass/Vol] 34.1 g/dL Normal 32-36 [facility] Comment on above: Performed By: #### L 100.0100, L500.4050, L500.4100, L501.5200, L501.9520, L503.0106, L506.1001 #### [facility] [address] [place], [address] MCV (RBC) [Entitic vol] 82.2 fL Normal 81-99 [facility] Comment on above: Performed By: #### L 100.0100, L500.4050, L500.4100, L501.5200, L501.9520, L503.0106, L506.1001 #### [facility] [address] [place], [address] Monocytes/100 WBC (Bld) 8.1 % Normal 0-10 [facility] Comment on above: Performed By: #### L 100.0100, L500.4050, L500.4100, L501.5200, L501.9520, L503.0106, L506.1001 #### [facility] [address] [place], [address] Neutrophils/100 WBC (Bld) 74.5 % High 47-70 [facility] Comment on above: Performed By: #### L 100.0100, L500.4050, L500.4100, L501.5200, L501.9520, L503.0106, L506.1001 #### [facility] [address] [place], [address] Nucleated RBC (Bld) [#/Vol] 0 10*3/uL Normal 0-5 [facility] Comment on above: Performed By: #### L 100.0100, L500.4050, L500.4100, L501.5200, L501.9520, L503.0106, L506.1001 #### [facility] [address] [place], [address] Platelet mean volume (Bld) [Entitic vol] 10.6 fL Normal 6.2-12.0 [facility] Comment on above: Performed By: #### L 100.0100, L500.4050, L500.4100, L501.5200, L501.9520, L503.0106, L506.1001 #### [facility] [address] [place], [address] Platelets (Bld) [#/Vol] 302 10*3/uL Normal 150-450 [facility] Comment on above: Performed By: #### L 100.0100, L500.4050, L500.4100, L501.5200, L501.9520, L503.0106, L506.1001 #### [facility] [address] [place], [address] RBC (Bld) [#/Vol] 4.78 10*6/uL Normal 4.2-5.4 [facility] Comment on above: Performed By: #### L 100.0100, L500.4050, L500.4100, L501.5200, L501.9520, L503.0106, L506.1001 #### [facility] [address] [place], [address] RDW SD 38.5 fl Normal 35.1-43.9 [facility] Comment on above: Performed By: #### L 100.0100, L500.4050, L500.4100, L501.5200, L501.9520, L503.0106, L506.1001 #### [facility] [address] [place], [address] (767) WBC (Bld) [#/Vol] 11.8 10*3/uL High 4.4-11.0 [facility] Comment on above: Performed By: #### L 100.0100, L500.4050, L500.4100, L501.5200, L501.9520, L503.0106, L506.1001 #### [facility] [address] [place], [place], [id number] Calculated very low density lipoprotein (VLDL) cholesterol measurementOrdered By: Andrew Billingsley on 07-05-2025 Calculated very low density lipoprotein (VLDL) cholesterol measurement 18 mg/dL 5-40 [facility] Carbon dioxide, total [Moles /volume] in Central venous bloodOrdered By: Andrew Billingsley on 07-05-2025 CO2 [Moles/Vol] 24.7 mmol/L 21.0-32.0 [facility] Chloride assayOrdered By: Nickie Billingsley on 07-05-2025 Chloride [Moles/Vol] 95 mmol/L Low 98-108 [facility] Comprehensive Metabolic Prof ilon 07-05-2025 Albumin [Mass/Vol] 4.2 g/dL Normal 3.4-4.8 [facility] Comment on above: Performed By: #### L 100.0100, L500.4050, L500.4100, L501.5200, L501.9520, L503.0106, L506.1001 #### [facility] [address] [place], [address] Albumin/Globulin [Mass ratio] 1.3 {ratio} Normal 0.9-2.4 [facility] Comment on above: Performed By: #### L 100.0100, L500.4050, L500.4100, L501.5200, L501.9520, L503.0106, L506.1001 #### [facility] [address] [place], [address] ALK PHOS 96 U/L Normal 35-104 [facility] Comment on above: Performed By: #### L 100.0100, L500.4050, L500.4100, L501.5200, L501.9520, L503.0106, L506.1001 #### [facility] [address] [place], [address] ALT [Catalytic activity/Vol] 9 U/L Normal <=34 [facility] Comment on above: Performed By: #### L 100.0100, L500.4050, L500.4100, L501.5200, L501.9520, L503.0106, L506.1001 #### [facility] [address] [place], [address] AST [Catalytic activity/Vol] 17 U/L Normal <=31 [facility] Comment on above: Performed By: #### L 100.0100, L500.4050, L500.4100, L501.5200, L501.9520, L503.0106, L506.1001 #### [facility] [address] [place], [address] Bilirubin [Mass/Vol] 0.68 mg/dL Normal 0.00-1.30 [facility] Comment on above: Performed By: #### L 100.0100, L500.4050, L500.4100, L501.5200, L501.9520, L503.0106, L506.1001 #### [facility] [address] [place], [address] BUN/CRE 21.5 RATIO High 10-20 [facility] Comment on above: Performed By: #### L 100.0100, L500.4050, L500.4100, L501.5200, L501.9520, L503.0106, L506.1001 #### [facility] [address] [place], [address] Calcium [Mass/Vol] 10.2 mg/dL Normal 7.6-11.0 [facility] Comment on above: Performed By: #### L 100.0100, L500.4050, L500.4100, L501.5200, L501.9520, L503.0106, L506.1001 #### [facility] [address] [place], [address] Chloride [Moles/Vol] 95 mmol/L Low 98-108 [facility] Comment on above: Performed By: #### L 100.0100, L500.4050, L500.4100, L501.5200, L501.9520, L503.0106, L506.1001 #### [facility] [address] [place], [address] CO2 [Moles/Vol] 24.7 mmol/L Normal 21.0-32.0 [facility] Comment on above: Performed By: #### L 100.0100, L500.4050, L500.4100, L501.5200, L501.9520, L503.0106, L506.1001 #### [facility] [address] [place], [address] Creatinine [Mass/Vol] 0.64 mg/dL Low 0.70-1.20 [facility] Comment on above: Performed By: #### L 100.0100, L500.4050, L500.4100, L501.5200, L501.9520, L503.0106, L506.1001 #### [facility] [address] [place], [address] GAP 16 High 5-15 [facility] Comment on above: Performed By: #### L 100.0100, L500.4050, L500.4100, L501.5200, L501.9520, L503.0106, L506.1001 #### [facility] [address] [place], [place], [phone] (370) GFR/1.73 sq M.predicted among non-blacks MDRD (S/P/Bld) [Vol rate/Area] 94 mL/min/{1.73_m2} Normal >60 [facility] Comment on above: Result Comment: mL/m in/1.73m2 CKD-EPI Creatinine Equation (2020) Performed By: #### L 100.0100, L500.4050, L500.4100, L501.5200, L501.9520, L503.0106, L506.1001 #### [facility] [address] [place], [address] Globulin (S) [Mass/Vol] 3.2 g/dL Normal 2.2-4.2 [facility] Comment on above: Performed By: #### L 100.0100, L500.4050, L500.4100, L501.5200, L501.9520, L503.0106, L506.1001 #### [facility] [address] [place], [address] Glucose [Mass/Vol] 102 mg/dL High 70-99 [facility] Comment on above: Performed By: #### L 100.0100, L500.4050, L500.4100, L501.5200, L501.9520, L503.0106, L506.1001 #### [facility] [address] [place], [address] Potassium [Moles/Vol] 3.7 mmol/L Normal 3.3-5.1 [facility] Comment on above: Performed By: #### L 100.0100, L500.4050, L500.4100, L501.5200, L501.9520, L503.0106, L506.1001 #### [facility] [address] [place], [address] Sodium [Moles/Vol] 136 mmol/L Normal 133-145 [facility] Comment on above: Performed By: #### L 100.0100, L500.4050, L500.4100, L501.5200, L501.9520, L503.0106, L506.1001 #### [facility] [address] [place], [address] T PROT 7.4 g/dL Normal 5.9-8.4 [facility] Comment on above: Performed By: #### L 100.0100, L500.4050, L500.4100, L501.5200, L501.9520, L503.0106, L506.1001 #### [facility] [address] [place], [address] Urea nitrogen [Mass/Vol] 14 mg/dL Normal 4-19 [facility] Comment on above: Performed By: #### L 100.0100, L500.4050, L500.4100, L501.5200, L501.9520, L503.0106, L506.1001 #### [facility] [address] [place], [address] Eosinophil percentageOrdered By: Andrew Billingsley on 07-05-2025 Eosinophils/100 WBC (Bld) 2.0 % 0-5 [facility] Erythrocyte distribution wid th ratioOrdered By: Andrew Billingsley on 07-05-2025 Erythrocyte distribution width (RBC) [Ratio] 12.8 % 11.6-14.6 [facility] Erythrocyte distribution wid th standard deviationOrdered By: Andrew Billingsley on 07-05-2025 Erythrocyte distribution width (RBC) [Ratio] 38.5 fl 35.1-43.9 [facility] Glomerular filtration rate ( GFR) estimation/1.73 sq m using serum, plasma, or whole bOrdered By: Andrew Billingsley on 07-05-2025 GFR/1.73 sq M.predicted among non-blacks MDRD (S/P/Bld) [Vol rate/Area] 94 mL/min/{1.73_m2} >60 [facility] Comment on above: mL/min/1.73m2 CKD-EP I Creatinine Equation (2020) Hematocrit Auto (Bld) [Volum e fraction]Ordered By: Andrew Billingsley on 07-05-2025 Hematocrit (Bld) [Volume fraction] 39.3 % 37-47 [facility] Hemoglobin measurementOrdere d By: Andrew Billingsley on 07-05-2025 Hemoglobin (Bld) [Mass/Vol] 13.4 g/dL 12.0-15.0 [facility] Immature granulocytes/100 WB C Auto (Bld)Ordered By: Andrew Billingsley on 07-05-2025 Immature granulocytes/100 WBC (Bld) 0.300 % 0.0-0.9 [facility] Comment on above: IG% - Immature Granu locytes (promyelocytes, myelocytes and metamyelocytes) > 1% indicates that a LEFT SHIFT is Present. LDL calc ser/plasOrdered By: Andrew Billingsley on 07-05-2025 Cholesterol in LDL [Mass/Vol] 105 mg/dL [facility] Comment on above: Kodbdkmeod=738-594 m g/dL & Higher Vsgz=480 mg/dL or greaterFriedwald Equation for LDL-C Laboratory - Chemistry and C hemistry - challengeOrdered By: Andrew Billingsley on 07-05-2025 AST [Catalytic activity/Vol] 17 U/L <32 [facility] Lipid Profileon 07-05-2025 CHOL:HDL 3.66 Normal [facility] Comment on above: Performed By: #### L 100.0100, L500.4050, L500.4100, L501.5200, L501.9520, L503.0106, L506.1001 #### [facility] [address] [place], [place], [id number] (684) Cholesterol [Mass/Vol] 169 mg/dL Normal <=200 [facility] Comment on above: Result Comment: Chol esterol level, Desirable <200 mg/dL Borderline high cholesterol 200-239 mg/dL High cholesterol >=240 mg/dL Recommendations of the NCEP Adult Treatment Panel for the following risk-cutoff thresholds for the [place] population. Performed By: #### L 100.0100, L500.4050, L500.4100, L501.5200, L501.9520, L503.0106, L506.1001 #### [facility] [address] [place], [place], [id number] (147) Cholesterol in HDL [Mass/Vol] 46 mg/dL Normal [facility] Comment on above: Result Comment: Jodi onal Cholesterol Education Program (NCEP) guidelines: <40 mg/dL: Low HDL-cholesterol (major risk factor for CHD) >= 60 mg/dL: High HDL-cholesterol (negative risk factor for CHD) HDL-cholesterol is affected by a number of factors, e.g. smoking, exercise, hormones, sex and age. Performed By: #### L 100.0100, L500.4050, L500.4100, L501.5200, L501.9520, L503.0106, L506.1001 #### [facility] [address] [place], [address] Cholesterol in LDL [Mass/Vol] 105 mg/dL Normal [facility] Comment on above: Result Comment: Bord nxaawa=936-889 mg/dL Higher Qhlp=073 mg/dL or greater Friedwald Equation for LDL-C Performed By: #### L 100.0100, L500.4050, L500.4100, L501.5200, L501.9520, L503.0106, L506.1001 #### [facility] [address] [place], [address] Cholesterol in VLDL [Mass/Vol] 18 mg/dL Normal 5-40 [facility] Comment on above: Performed By: #### L 100.0100, L500.4050, L500.4100, L501.5200, L501.9520, L503.0106, L506.1001 #### [facility] [address] [place], [address] Triglyceride [Mass/Vol] 90 mg/dL Normal [facility] Comment on above: Result Comment: The drugs N-Acetylcysteine and Metamizole may falsely depress this assay. Normal range: <150 mg/dL Borderline High: 150-199 mg/dL High: 200-499 mg/dL Very High: >500 mg/dL Performed By: #### L 100.0100, L500.4050, L500.4100, L501.5200, L501.9520, L503.0106, L506.1001 #### [facility] [address] [place], [address] MCV (mean corpuscular volume ) determinationOrdered By: Andrew Billingsley on 07-05-2025 MCV (RBC) [Entitic vol] 82.2 fL 81-99 [facility] Magnesiumon 07-05-2025 Magnesium [Mass/Vol] 2.0 mg/dL Normal 1.5-2.2 [facility] Comment on above: Performed By: #### L 100.0100, L500.4050, L500.4100, L501.5200, L501.9520, L503.0106, L506.1001 #### [facility] [address] [place], [address] Magnesium measurement (mass/ volume)Ordered By: Andrew Billingsley on 07-05-2025 Magnesium (Unsp spec) [Mass/Vol] 2.0 mg/dL 1.5-2.2 [facility] Mean corpuscular hemoglobin (MCH) determinationOrdered By: Andrew Billingsley on 07-05-2025 MCH (RBC) [Entitic mass] 28.0 pg 27.0-32.0 [facility] Mean corpuscular hemoglobin concentration (MCHC) determinationOrdered By: Andrew Billingsley on 07-05-2025 MCHC (RBC) [Mass/Vol] 34.1 g/dL 32-36 [facility] Mean platelet volume determi nationOrdered By: Andrew Billingsley on 07-05-2025 Platelet mean volume (Bld) [Entitic vol] 10.6 fL 6.2-12.0 [facility] Monocyte percentageOrdered B y: Andrew Billingsley on 07-05-2025 Monocytes/100 WBC (Bld) 8.1 % 0-10 [facility] Neutrophil percentageOrdered By: Andrew Billingsley on 07-05-2025 Neutrophils/100 WBC (Bld) 74.5 % High 47-70 [facility] Nucleated red blood cell per centageOrdered By: Andrew Billingsley on 07-05-2025 Nucleated RBC/100 WBC (Bld) [Ratio] 0 % 0-5 [facility] Platelet countOrdered By: Nickie Billingsley on 07-05-2025 Platelets (Bld) [#/Vol] 302 10*3/uL 150-450 [facility] Potassium measurement (mass/ volume)Ordered By: Andrew Billingsley on 07-05-2025 Potassium (Unsp spec) [Mass/Vol] 3.7 mmol/L 3.3-5.1 [facility] RBC Auto (Bld) [#/Vol]Ordere d By: Andrew Billingsley on 07-05-2025 RBC (Bld) [#/Vol] 4.78 10*6/uL 4.2-5.4 [facility] Screening total cholesterol/ high density lipoprotein (HDL) cholesterol ratioOrdered By: Andrew Billingsley on 07-05-2025 Cholesterol.total/Chol esterol in HDL [Mass ratio] 3.66 {ratio} [facility] Serum creatinine measurement (mass/volume)Ordered By: Andrew Billingsley on 07-05-2025 Creatinine [Mass/Vol] 0.64 mg/dL Low 0.70-1.20 [facility] Serum globulin measurementOr dered By: Andrew Billingsley on 07-05-2025 Globulin (S) [Mass/Vol] 3.2 g/dL 2.2-4.2 [facility] Serum glucose measurement (m ass/volume)Ordered By: Andrew Billingsley on 07-05-2025 Glucose [Mass/Vol] 102 mg/dL High 70-99 [facility] Serum or plasma alanine rodriguez otransferase (ALT) measurementOrdered By: Andrew Billingsley on 07-05-2025 ALT [Catalytic activity/Vol] 9 U/L <35 [facility] Serum or plasma albumin dequan urement (mass/volume)Ordered By: Andrew Billingsley on 07-05-2025 Albumin [Mass/Vol] 4.2 g/dL 3.4-4.8 [facility] Serum or plasma albumin/glob ulin mass ratioOrdered By: Andrew Billingsley on 07-05-2025 Albumin/Globulin [Mass ratio] 1.3 {ratio} 0.9-2.4 [facility] Serum or plasma alkaline boby sphatase measurementOrdered By: Andrew Billingsley on 07-05-2025 ALP [Catalytic activity/Vol] 96 U/L 35-104 [facility] Serum or plasma calcium dequan urement (mass/volume)Ordered By: Andrew Billingsley on 07-05-2025 Calcium [Mass/Vol] 10.2 mg/dL 7.6-11.0 [facility] Serum or plasma cholesterol in HDL measurement (mass/volume)Ordered By: Andrew Billingsley on 07-05-2025 Cholesterol in HDL [Mass/Vol] 46 mg/dL >40 [facility] Comment on above: National Cholesterol Education Program (NCEP) guidelines:<40 mg/dL: Low HDL-cholesterol (major risk factor for CHD)>= 60 mg/dL: High HDL-cholesterol (negative risk factor for CHD)HDL-cholesterol is affected by a number of factors, e.g. smoking, exercise, hormones, sex and age. Serum or plasma cholesterol measurement (mass/volume)Ordered By: Andrew Billingsley on 07-05-2025 Cholesterol [Mass/Vol] 169 mg/dL <201 [facility] Comment on above: Cholesterol level, D esirable <200 mg/dLBorderline high cholesterol 200-239 mg/dLHigh cholesterol >=240 mg/dLRecommendations of the NCEP Adult Treatment Panel for the following risk-cutoff thresholds for the [place] population. Serum or plasma urea nitroge n measurement (mass/volume)Ordered By: Andrew Billingsley on 07-05-2025 Urea nitrogen [Mass/Vol] 14 mg/dL 4-19 [facility] Sodium levelOrdered By: Kezia Billingsley on 07-05-2025 Sodium [Moles/Vol] 136 mmol/L 133-145 [facility] TSH DL <= 0.005 mIU/L QnOrde red By: Andrew Billingsley on 07-05-2025 TSH Qn 1.800 uIU/mL 0.300-4.200 [facility] Thyroid Stim Hormone (TSH)on 07-05-2025 TSH 1.800 uIU/mL Normal 0.300-4.200 [facility] Comment on above: Performed By: #### L 100.0100, L500.4050, L500.4100, L501.5200, L501.9520, L503.0106, L506.1001 #### [facility] [address] [place], [address] Total proteinOrdered By: Lexis Billingsley on 07-05-2025 Protein [Mass/Vol] 7.4 g/dL 5.9-8.4 [facility] Triglycerides measurementOrd ered By: Andrew Billingsley on 07-05-2025 Triglyceride [Mass/Vol] 90 mg/dL <199 [facility] Comment on above: The drugs N-Acetylcy steine and Metamizole may falsely depress this assay. Normal range: <150 mg/dLBorderline High: 150-199 mg/dLHigh: 200-499 mg/dLVery High: >500 mg/dL Vitamin B12on 07-05-2025 Cobalamin (Vitamin B12) [Mass/Vol] 589 pg/mL Normal 180-914 [facility] Comment on above: Performed By: #### L 100.0100, L500.4050, L500.4100, L501.5200, L501.9520, L503.0106, L506.1001 #### [facility] [address] [place], [place], [id number] Vitamin B12 ser/plasOrdered By: Andrew Billingsley on 07-05-2025 Cobalamin (Vitamin B12) [Mass/Vol] 589 pg/mL 180-914 [facility] Vitamin D,25 Hydroxyon 07-05 Vitamin D 25-OH 65.0 ng/mL Normal 30-100 [facility] Comment on above: Result Comment: Kierra min D Status Deficiency: <20 ng/mL (50nmol/L) Insufficiency: 20-30 ng/mL (50-75 nmol/L) Sufficiency: 30-100 ng/mL (75-250 nmol/L) Toxicity: >100 ng/mL (>250 nmol/L) Performed By: #### L 100.0100, L500.4050, L500.4100, L501.5200, L501.9520, L503.0106, L506.1001 #### [facility] [address] [place], [place], [id number] White blood cell (WBC) count Ordered By: Andrew Billingsley on 07-05-2025 WBC (Bld) [#/Vol] 11.8 10*3/uL High 4.4-11.0 [facility] MR/Blake 02-16-2025 MR/BMS.BVS [facility] Vascular Surgery [address] [place], [place] [address] OFFICE VISIT Date of Service: 02/16/25 MR#: [id number] Acct: [id number] Name: CHRISTINA MACIAS Rep #: [id number] : 1955 Provider: SURESH Corey Age/Sex: 69/F Location: [facility].BVS Status: Signed Intake Vital Signs 01/27/25 14:22 [...] physical activity do you participate in: walking aleksey/roman catholic: Latter-Day seatbelt use: always do you feel safe [...] or vomiti (more content not included)... Normal [facility] MR/BMS.IMBon 01-27-2025 MR/BMS.B [facility] [address] [place] [address] OFFICE VISIT Date of Service: 01/27/25 MR#: [id number] Acct: [id number] Name: CHRISTINA MACIAS Rep #: [id number] : 1955 Provider: Dr. Andrew alfaro MD Age/Sex: 69/F Location: 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 Normal [facility] Renin/Aldosterone Activityon 01-26-2025 ALD/RENIN RATIO 2.5 Normal 0.0-30.0 [facility] Comment on above: Order Comment: Test( s) 914012-Kdtzqbybfsx; 000071-Lmsup Activity, Plasmawas developed and its performance characteristicsdetermined by [facility]. It has not been cleared or approvedby the Food and Drug Administration. Result Comment: Unit s: ng/dL per ng/mL/hr Performed at: [facility] [address] [id number] Car Rental Deliverer: Skylar Gore MD, Phone: [phone] Performed By: #### L 100.0100, L500.4050, L500.4100, L501.5200, L501.9520, L503.0106, L506.1001 #### [facility] [address] [place], [address] ALDOSTERONE,S 21.0 ng/dL Normal 0.0-30.0 [facility] Comment on above: Order Comment: Test( s) 874200-Bywrtdiqley; 849198-Vlejq Activity, Plasmawas developed and its performance characteristicsdetermined by [facility]. It has not been cleared or approvedby the Food and Drug Administration. Performed By: #### L 100.0100, L500.4050, L500.4100, L501.5200, L501.9520, L503.0106, L506.1001 #### [facility] [address] [place], [address] RENIN, PLASMA 8.512 ng/mL/hr High 0.167-5.380 [facility] Comment on above: Order Comment: Test( s) 542412-Syfsfxgsrxl; 715893-Ebgdy Activity, Plasmawas developed and its performance characteristicsdetermined by [facility]. It has not been cleared or approvedby the Food and Drug Administration. Performed By: #### L 100.0100, L500.4050, L500.4100, L501.5200, L501.9520, L503.0106, L506.1001 #### [facility] [address] [facility] [place], [place], [address] Aldosterone, serumOrdered By : Andrew Billingsley on 01-20-2025 Aldosterone 21.0 ng/dL 0.0-30.0 [facility] Aldosterone/Renin (P) [Ratio ]Ordered By: Andrew Billingsley on 01-20-2025 Aldosterone/Renin Ratio 2.5 0.0-30.0 [facility] Comment on above: Units: ng/dL per ng/ mL/hrPerformed at: [facility] [address] [id number] Director: Skylar Gore MD, Phone: [phone] Calculated very low density lipoprotein (VLDL) cholesterol measurementOrdered By: Andrew Billingsley on 01-20-2025 VLDL Cholesterol 19 mg/dL 5-40 [facility] L509.6001on 01-20-2025 CORTISOL 12.10 ug/dL Normal 6.02-18.40 [facility] Comment on above: Performed By: #### L 100.0100, L500.4050, L500.4100, L501.5200, L501.9520, L503.0106, L506.1001 #### [facility] [address] [place], [address] CORTISOL 11.50 ug/dL Normal 6.02-18.40 [facility] Comment on above: Performed By: #### L 100.0100, L500.4050, L500.4100, L501.5200, L501.9520, L503.0106, L506.1001 #### [facility] [address] [place], [address] LDL calc ser/plasOrdered By: Andrew Billingsley on 01-20-2025 LDL Cholesterol, Calculated 113 mg/dL [facility] Comment on above: Kucrpgctdd=708-829 m g/dL & Higher Bzlj=497 mg/dL or greater Lipid Profileon 01-20-2025 CHOL:HDL 3.29 Normal [facility] Comment on above: Performed By: #### L 100.0100, L500.4050, L500.4100, L501.5200, L501.9520, L503.0106, L506.1001 #### [facility] [address] [place], [place], [id number] (548) Cholesterol [Mass/Vol] 190 mg/dL Normal <=200 [facility] Comment on above: Result Comment: Chol esterol level, Desirable <200 mg/dL Borderline high cholesterol 200-239 mg/dL High cholesterol >=240 mg/dL Recommendations of the NCEP Adult Treatment Panel for the following risk-cutoff thresholds for the [place] population. Performed By: #### L 100.0100, L500.4050, L500.4100, L501.5200, L501.9520, L503.0106, L506.1001 #### [facility] [address] [place], [address] Cholesterol in HDL [Mass/Vol] 58 mg/dL Normal [facility] Comment on above: Result Comment: Jodi onal Cholesterol Education Program (NCEP) guidelines: <40 mg/dL: Low HDL-cholesterol (major risk factor for CHD) >= 60 mg/dL: High HDL-cholesterol (negative risk factor for CHD) HDL-cholesterol is affected by a number of factors, e.g. smoking, exercise, hormones, sex and age. Performed By: #### L 100.0100, L500.4050, L500.4100, L501.5200, L501.9520, L503.0106, L506.1001 #### [facility] [address] [place], [address] Cholesterol in LDL [Mass/Vol] 113 mg/dL Normal [facility] Comment on above: Result Comment: Bord uoztqf=869-072 mg/dL Higher Msoe=028 mg/dL or greater Performed By: #### L 100.0100, L500.4050, L500.4100, L501.5200, L501.9520, L503.0106, L506.1001 #### [facility] [address] [place], [address] Cholesterol in VLDL [Mass/Vol] 19 mg/dL Normal 5-40 [facility] Comment on above: Performed By: #### L 100.0100, L500.4050, L500.4100, L501.5200, L501.9520, L503.0106, L506.1001 #### [facility] [address] [place], [address] Triglyceride [Mass/Vol] 95 mg/dL Normal [facility] Comment on above: Result Comment: The drugs N-Acetylcysteine and Metamizole may falsely depress this assay. Normal range: <150 mg/dL Borderline High: 150-199 mg/dL High: 200-499 mg/dL Very High: >500 mg/dL Performed By: #### L 100.0100, L500.4050, L500.4100, L501.5200, L501.9520, L503.0106, L506.1001 #### [facility] [address] [place], [address] Magnesiumon 01-20-2025 Magnesium [Mass/Vol] 1.9 mg/dL Normal 1.5-2.2 [facility] Comment on above: Performed By: #### L 100.0100, L500.4050, L500.4100, L501.5200, L501.9520, L503.0106, L506.1001 #### [facility] [address] [place], [address] Magnesium (Unsp spec) [Mass/ Vol]Ordered By: Andrew Billingsley on 01-20-2025 Magnesium [Mass/Vol] 1.9 mg/dL 1.5-2.2 [facility] No Panel InformationOrdered By: Andrew Billingsley on 01-20-2025 Cortisol AM Sample 11.50 ug/dL 6.02-18.40 [facility] PTH intactOrdered By: Andrew Billingsley on 01-20-2025 Parathyroid Hormone (Intact) 35 pg/mL [facility] PTHINon 01-20-2025 PTH 35 pg/mL Normal [facility] Comment on above: Performed By: #### L 509.1000, L500.4100, L501.5200, L509.6001, L3300.1050 #### [facility] [address] [place], [address] Renin (P) [Catalytic activit y/Vol]Ordered By: Andrew Billingsley on 01-20-2025 Renin 8.512 ng/mL/hr High 0.167-5.380 [facility] Screening total cholesterol/ high density lipoprotein (HDL) cholesterol ratioOrdered By: Andrew Billingsley on 01-20-2025 Cholesterol.total/Chol esterol in HDL [Mass ratio] 3.29 {ratio} [facility] Serum or plasma cholesterol in HDL measurement (mass/volume)Ordered By: Andrew Billingsley on 01-20-2025 Cholesterol in HDL [Mass/Vol] 58 mg/dL >40 [facility] Comment on above: National Cholesterol Education Program (NCEP) guidelines:<40 mg/dL: Low HDL-cholesterol (major risk factor for CHD)>= 60 mg/dL: High HDL-cholesterol (negative risk factor for CHD)HDL-cholesterol is affected by a number of factors, e.g. smoking, exercise, hormones, sex and age. Serum or plasma cholesterol measurement (mass/volume)Ordered By: Andrew Billingsley on 01-20-2025 Cholesterol [Mass/Vol] 190 mg/dL <201 [facility] Comment on above: Cholesterol level, D esirable <200 mg/dLBorderline high cholesterol 200-239 mg/dLHigh cholesterol >=240 mg/dLRecommendations of the NCEP Adult Treatment Panel for the following risk-cutoff thresholds for the [place] population. Triglycerides measurementOrd ered By: Andrew Billingsley on 01-20-2025 Triglyceride [Mass/Vol] 95 mg/dL <199 [facility] Comment on above: The drugs N-Acetylcy steine and Metamizole may falsely depress this assay. Normal range: <150 mg/dLBorderline High: 150-199 mg/dLHigh: 200-499 mg/dLVery High: >500 mg/dL Emergency Department Summary on 12-14-2024 Emergency Department Summary [facility] Medical Records Department [address] [place] [address] Emergency Department Summary 12/14/24 MR#: [id number] Acct: [id number] Name: CHRISTINA MACIAS Rep #: [id number] : 1955 68 From: Thomas Quintanilla DO PCP: Dr. Andrew Billingsley MD Status:[facility] ER Location: ED HPI History of Present Illness Chief Complaint: Headache [facility] Medical History Diverticulitis Vision problems GERD (gastroesophageal [...] physical activity do you participate in: walking aleksey/roman catholic: Latter-Day seatbelt use: always do you feel safe [...] % (Auto) 63.2 Lymph % (Auto) 24.4 [place] % (Auto) 8.9 Eos % (Auto) 2.5 [...] use of iterative reconstruction technique). Reading Location: [facility] Discharge Plan Triage Chief Complaint: Headache ED [...] Qty: 90 (more content not included)... Normal [facility] 12 Lead EKGon 12-13-2024 12 Lead EKG [facility] Cardiovascular Services [address] [place] [address] 12 Lead EKG 12/13/24 2311 MR#: [id number] Acct: [id number] Name: CHRISTINA MACIAS Rep #: [id number] : 1955 68 From: Yonis Perkins MD [...] normal ECG Confirmed by RADHA DUQUE, YONIS ([id number]), editor map RAFAELA MOREL ([id number]) on 12/14/2024 8:56:19 AM Referred By: Confirmed By: YONIS PERKINS MD 12/14/24 0856 Date Yonis Perkins MD CC: Dr. Andrew Billingsley MD; Thomas Quintanilla DO Signed Normal [facility] Absolute neutrophil countOrd ered By: Thomas Quintanilla on 12-13-2024 Neutrophils (Bld) [#/Vol] 6.9 10*3/uL 2.0-7.7 [facility] Basic Metabolic Profile (BMP )on 12-13-2024 BUN/CRE 25.1 RATIO High 10-20 [facility] Comment on above: Performed By: #### L 100.0100, L500.4050, L500.4100, L501.5200, L501.9520, L503.0106, L506.1001 #### [facility] [address] [place] [address], [id number] CA,Total 10.2 mg/dL High 8.5-10.1 [facility] Comment on above: Performed By: #### L 100.0100, L500.4050, L500.4100, L501.5200, L501.9520, L503.0106, L506.1001 #### [facility] [address] [place], [address] Chloride [Moles/Vol] 95 mmol/L Low 98-107 [facility] Comment on above: Performed By: #### L 100.0100, L500.4050, L500.4100, L501.5200, L501.9520, L503.0106, L506.1001 #### [facility] [address] [place], [address] CO2 [Moles/Vol] 31.0 mmol/L Normal 21.0-32.0 [facility] Comment on above: Performed By: #### L 100.0100, L500.4050, L500.4100, L501.5200, L501.9520, L503.0106, L506.1001 #### [facility] [address] [place], [address] Creatinine [Mass/Vol] 0.76 mg/dL Normal 0.55-1.02 [facility] Comment on above: Result Comment: The validity of the calculated GFR GFRAA in patients over 70 years has not been determined. Clinical correlation is essential. Performed By: #### L 100.0100, L500.4050, L500.4100, L501.5200, L501.9520, L503.0106, L506.1001 #### [facility] [address] [place], [address] ECRCL 67.12 ml/min Normal [facility] Comment on above: Performed By: #### L 100.0100, L500.4050, L500.4100, L501.5200, L501.9520, L503.0106, L506.1001 #### [facility] [address] [place], [address] EST GFR - AA 97 mL/min Normal >60 [facility] Comment on above: Result Comment: Afri can [place] GFR Calc Performed By: #### L 100.0100, L500.4050, L500.4100, L501.5200, L501.9520, L503.0106, L506.1001 #### [facility] [address] [place], [address] GAP 9 Normal 5-15 [facility] Comment on above: Performed By: #### L 100.0100, L500.4050, L500.4100, L501.5200, L501.9520, L503.0106, L506.1001 #### [facility] [address] [place], [address] GFR/1.73 sq M.predicted among non-blacks MDRD (S/P/Bld) [Vol rate/Area] 80 mL/min/{1.73_m2} Normal >60 [facility] Comment on above: Result Comment: Non- GFR Calc Performed By: #### L 100.0100, L500.4050, L500.4100, L501.5200, L501.9520, L503.0106, L506.1001 #### [facility] [address] [place], [address] Glucose [Mass/Vol] 115 mg/dL High 74-106 [facility] Comment on above: Result Comment: Fast ing Glucose result from 100 to 125 mg/dL suggests IMPAIRED HOMEOSTASIS per A.D.A. criteria. Performed By: #### L 100.0100, L500.4050, L500.4100, L501.5200, L501.9520, L503.0106, L506.1001 #### [facility] [address] [place], [address] Potassium [Moles/Vol] 3.1 mmol/L Low 3.5-5.1 [facility] Comment on above: Performed By: #### L 100.0100, L500.4050, L500.4100, L501.5200, L501.9520, L503.0106, L506.1001 #### [facility] [address] [place], [address] Sodium [Moles/Vol] 135 mmol/L Low 136-145 [facility] Comment on above: Performed By: #### L 100.0100, L500.4050, L500.4100, L501.5200, L501.9520, L503.0106, L506.1001 #### [facility] [address] [place], [address] Urea nitrogen [Mass/Vol] 19 mg/dL High 7-18 [facility] Comment on above: Performed By: #### L 100.0100, L500.4050, L500.4100, L501.5200, L501.9520, L503.0106, L506.1001 #### [facility] [address] [place], [address] Basophil percentageOrdered B y: Thomas Quintanilla on 12-13-2024 Basophils/100 WBC (Bld) 0.7 % 0-1 [facility] Blood urea nitrogen (BUN)/cr eatinine ratioOrdered By: Thomas Quintanilla on 12-13-2024 Urea nitrogen/Creatinine [Mass ratio] 25.1 mg/mg High 10-20 [facility] Brain/Head without Contrasto n 12-13-2024 Brain/Head without Contrast [facility] Imaging Services [address] [place] [address] Brain/Head without Contrast MR#: [id number] Acct: [id number] Name: CHRISTINA MACIAS Rep #: [id number] : 1955 F 68 From: Eamon Martin PCP: Dr. Andrew Billingsley MD Status: REG ER Study: Brain/Head without Contrast Date of Exam: 02/01 Exam# [id number] Ordering Dr: Thomas Quintanilla DO PROCEDURE: BRAIN/HEAD [...] use of iterative reconstruction technique). Reading Location: [facility] CC: Dr. Andrew Billingsley MD; Thomas Quintanilla DO Grab Hooker: Signed Normal [facility] CBC W/Diff, Automatedon 02-0 Absolute Lymph 2.67 X10 3/uL Normal 0.83-4.51 [facility] Comment on above: Performed By: #### L 100.0100, L500.4050, L500.4100, L501.5200, L501.9520, L503.0106, L506.1001 #### [facility] [address] [place], [address] Absolute Neut 6.9 X10 3/uL Normal 2.0-7.7 [facility] Comment on above: Performed By: #### L 100.0100, L500.4050, L500.4100, L501.5200, L501.9520, L503.0106, L506.1001 #### [facility] [address] [place], [address] Basophils/100 WBC (Bld) 0.7 % Normal 0-1 [facility] Comment on above: Performed By: #### L 100.0100, L500.4050, L500.4100, L501.5200, L501.9520, L503.0106, L506.1001 #### [facility] [address] [place], [address] Eosinophils/100 WBC (Bld) 2.5 % Normal 0-5 [facility] Comment on above: Performed By: #### L 100.0100, L500.4050, L500.4100, L501.5200, L501.9520, L503.0106, L506.1001 #### [facility] [address] [place], [address] Erythrocyte distribution width (RBC) [Ratio] 12.6 % Normal 11.6-14.6 [facility] Comment on above: Performed By: #### L 100.0100, L500.4050, L500.4100, L501.5200, L501.9520, L503.0106, L506.1001 #### [facility] [address] [place], [address] Hematocrit (Bld) [Volume fraction] 43.9 % Normal 37-47 [facility] Comment on above: Performed By: #### L 100.0100, L500.4050, L500.4100, L501.5200, L501.9520, L503.0106, L506.1001 #### [facility] [address] [place], [address] Hemoglobin (Bld) [Mass/Vol] 15.4 g/dL High 12.0-15.0 [facility] Comment on above: Performed By: #### L 100.0100, L500.4050, L500.4100, L501.5200, L501.9520, L503.0106, L506.1001 #### [facility] [address] [place], [address] IG% 0.300 Normal 0.0-0.9 [facility] Comment on above: Result Comment: IG% - Immature Granulocytes (promyelocytes, myelocytes and metamyelocytes) > 1% indicates that a LEFT SHIFT is Present. Performed By: #### L 100.0100, L500.4050, L500.4100, L501.5200, L501.9520, L503.0106, L506.1001 #### [facility] [address] [place], [address] Lymphocytes/100 WBC (Bld) 24.4 % Normal 19-41 [facility] Comment on above: Performed By: #### L 100.0100, L500.4050, L500.4100, L501.5200, L501.9520, L503.0106, L506.1001 #### [facility] [address] [place], [address] MCH (RBC) [Entitic mass] 29.7 pg Normal 27.0-32.0 [facility] Comment on above: Performed By: #### L 100.0100, L500.4050, L500.4100, L501.5200, L501.9520, L503.0106, L506.1001 #### [facility] [address] [place], [address] MCHC (RBC) [Mass/Vol] 35.1 g/dL Normal 32-36 [facility] Comment on above: Performed By: #### L 100.0100, L500.4050, L500.4100, L501.5200, L501.9520, L503.0106, L506.1001 #### [facility] [address] [place], [address] MCV (RBC) [Entitic vol] 84.7 fL Normal 81-99 [facility] Comment on above: Performed By: #### L 100.0100, L500.4050, L500.4100, L501.5200, L501.9520, L503.0106, L506.1001 #### [facility] [address] [place], [address] Monocytes/100 WBC (Bld) 8.9 % Normal 0-10 [facility] Comment on above: Performed By: #### L 100.0100, L500.4050, L500.4100, L501.5200, L501.9520, L503.0106, L506.1001 #### [facility] [address] [place], [address] Neutrophils/100 WBC (Bld) 63.2 % Normal 47-70 [facility] Comment on above: Performed By: #### L 100.0100, L500.4050, L500.4100, L501.5200, L501.9520, L503.0106, L506.1001 #### [facility] [address] [place], [address] Nucleated RBC (Bld) [#/Vol] 0 10*3/uL Normal 0-5 [facility] Comment on above: Performed By: #### L 100.0100, L500.4050, L500.4100, L501.5200, L501.9520, L503.0106, L506.1001 #### [facility] [address] [place], [address] Platelet mean volume (Bld) [Entitic vol] 10.4 fL Normal 6.2-12.0 [facility] [facility] Comment on above: Performed By: #### L 100.0100, L500.4050, L500.4100, L501.5200, L501.9520, L503.0106, L506.1001 #### [facility] [address] [place], [address] Platelets (Bld) [#/Vol] 260 10*3/uL Normal 150-450 [facility] Comment on above: Performed By: #### L 100.0100, L500.4050, L500.4100, L501.5200, L501.9520, L503.0106, L506.1001 #### [facility] [address] [place], [place], [id number] (992) RBC (Bld) [#/Vol] 5.18 10*6/uL Normal 4.2-5.4 [facility] Comment on above: Performed By: #### L 100.0100, L500.4050, L500.4100, L501.5200, L501.9520, L503.0106, L506.1001 #### [facility] [address] [place], [address] ([phone] RDW SD 38.1 fl Normal 35.1-43.9 [facility] Comment on above: Performed By: #### L 100.0100, L500.4050, L500.4100, L501.5200, L501.9520, L503.0106, L506.1001 #### [facility] [address] [place], [place], [phone] (376) WBC (Bld) [#/Vol] 11.0 10*3/uL Normal 4.4-11.0 [facility] Comment on above: Performed By: #### L 100.0100, L500.4050, L500.4100, L501.5200, L501.9520, L503.0106, L506.1001 #### [facility] [address] [place], [place], [id number] Carbon dioxide measurementOr dered By: Thomas Quintanilla on 12-13-2024 CO2 [Moles/Vol] 31.0 mmol/L 21.0-32.0 [facility] Chloride measurementOrdered By: Thomas Quintanilla on 12-13-2024 Chloride [Moles/Vol] 95 mmol/L Low 98-107 [facility] Eosinophil percentageOrdered By: Thomas Quintanilla on 12-13-2024 Eosinophils/100 WBC (Bld) 2.5 % 0-5 [facility] Erythrocyte distribution wid th ratioOrdered By: Thomas Quintanilla on 12-13-2024 Erythrocyte distribution width (RBC) [Ratio] 12.6 % 11.6-14.6 [facility] Erythrocyte distribution wid th standard deviationOrdered By: Thomas Quintanilla on 12-13-2024 Erythrocyte distribution width (RBC) [Entitic vol] 38.1 fL 35.1-43.9 [facility] Estimated glomerular filtrat ion rate (GFR) AmericanOrdered By: Thomas Quintanilla on 12-13-2024 Estimated GFR (MDRD) Amer 97 mL/min >60 [facility] Comment on above: GFR Calc Estimation of creatinine farida aranceOrdered By: Thomas Quintanilla on 12-13-2024 Estimated Creatinine Clearance Calc 67.12 ml/min [facility] Glomerular filtration rate ( GFR) estimationOrdered By: Thomas Quintanilla on 12-13-2024 Estimated GFR (MDRD) Non-Af Amer 80 mL/min >60 [facility] Comment on above: Non- GFR Calc Glucose measurementOrdered B y: Thomas Quintanilla on 12-13-2024 Glucose [Mass/Vol] 115 mg/dL High 74-106 [facility] Comment on above: Fasting Glucose resu lt from 100 to 125 mg/dL suggests IMPAIRED HOMEOSTASIS per A.D.A. criteria. Hematocrit Auto (Bld) [Volum e fraction]Ordered By: Thomas Quintanilla on 12-13-2024 Hematocrit (Bld) [Volume fraction] 43.9 % 37-47 [facility] Hemoglobin measurementOrdere d By: Thomas Quintanilla on 12-13-2024 Hemoglobin (Bld) [Mass/Vol] 15.4 g/dL High 12.0-15.0 [facility] Immature granulocytes/100 WB C Auto (Bld)Ordered By: Thomas Quintanilla on 12-13-2024 Immature granulocytes/100 WBC (Bld) 0.300 % 0.0-0.9 [facility] Comment on above: IG% - Immature Granu locytes (promyelocytes, myelocytes and metamyelocytes) > 1% indicates that a LEFT SHIFT is Present. Lymphocytes Auto (Unsp spec) [#/Vol]Ordered By: Thomas Quintanilla on 12-13-2024 Lymphocytes (Bld) [#/Vol] 2.67 10*3/uL 0.83-4.51 [facility] Lymphocytes/100 WBC Auto (Un sp spec)Ordered By: Thomas Quintanilla on 12-13-2024 Lymphocytes/100 WBC (Bld) 24.4 % 19-41 [facility] MCV (mean corpuscular volume ) determinationOrdered By: Thomas Quintanilla on 12-13-2024 MCV (RBC) [Entitic vol] 84.7 fL 81-99 [facility] Mean corpuscular hemoglobin (MCH) determinationOrdered By: Thomas Quintanilla on 12-13-2024 MCH (RBC) [Entitic mass] 29.7 pg 27.0-32.0 [facility] Mean corpuscular hemoglobin concentration (MCHC) determinationOrdered By: Thomas Quintanilla on 12-13-2024 MCHC (RBC) [Mass/Vol] 35.1 g/dL 32-36 [facility] Mean platelet volume determi nationOrdered By: Thomas Quintanilla on 12-13-2024 Platelet mean volume (Bld) [Entitic vol] 10.4 fL 6.2-12.0 [facility] Monocyte percentageOrdered B y: Thomas Quintanilla on 12-13-2024 Monocytes/100 WBC (Bld) 8.9 % 0-10 [facility] Neutrophil percentageOrdered By: Thomas Quintanilla on 12-13-2024 Neutrophils/100 WBC (Bld) 63.2 % 47-70 [facility] Nucleated red blood cell per centageOrdered By: Thomas Quintanilla on 12-13-2024 Nucleated RBC/100 WBC (Bld) [Ratio] 0 % 0-5 [facility] Platelet countOrdered By: Yudith Quintanilla on 12-13-2024 Platelets (Bld) [#/Vol] 260 10*3/uL 150-450 [facility] Potassium measurementOrdered By: Thomas Quintanilla on 12-13-2024 Potassium [Moles/Vol] 3.1 mmol/L Low 3.5-5.1 [facility] RBC Auto (Bld) [#/Vol]Ordere d By: Thomas Quintanilla on 12-13-2024 RBC (Bld) [#/Vol] 5.18 10*6/uL 4.2-5.4 [facility] Serum anion gap measurementO rdered By: Thomas Quintanilla on 12-13-2024 Anion gap [Moles/Vol] 9 mmol/L 5-15 [facility] Serum or plasma calcium dequan urement (mass/volume)Ordered By: Thomas Quintanilla on 12-13-2024 Calcium [Mass/Vol] 10.2 mg/dL High 8.5-10.1 [facility] Serum or plasma creatinine m easurement (mass/volume)Ordered By: Thomas Quintanilla on 12-13-2024 Creatinine [Mass/Vol] 0.76 mg/dL 0.55-1.02 [facility] Comment on above: The validity of the calculated GFR & GFRAA in patients over 70 years has not been determined. Clinical correlation is essential. Serum or plasma urea nitroge n measurement (mass/volume)Ordered By: Thomas Quintanilla on 12-13-2024 Urea nitrogen [Mass/Vol] 19 mg/dL High 7-18 [facility] Sodium levelOrdered By: Tyler Quintanilla on 12-13-2024 Sodium [Moles/Vol] 135 mmol/L Low 136-145 [facility] White blood cell (WBC) count Ordered By: Thomas Quintanilla on 12-13-2024 WBC (Bld) [#/Vol] 11.0 10*3/uL 4.4-11.0 [facility] MR/BMSMaegan 09-15-2024 MR/BMS.B [facility] [address] [place] [address] OFFICE VISIT Date of Service: 09/15/24 MR#: [id number] Acct: [id number] Name: HERBERTCHRISTINA D Rep #: [id number] : 1955 Provider: Dr. Andrew alfaro MD Age/Sex: 68/F Location: 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 Review of systems per chart. She [...] ache, chills, (more content not included)... Normal [facility] CBC W/Diff, Automatedon 10-3 -2023 Absolute Lymph 1.77 X10 3/uL Normal 0.83-4.51 [facility] Comment on above: Performed By: #### L 100.0100, L500.4050, L500.4100, L501.5200, L501.9520, L503.0106, L506.1001 #### [facility] [address] [place], [address] Absolute Neut 5.2 X10 3/uL Normal 2.0-7.7 [facility] Comment on above: Performed By: #### L 100.0100, L500.4050, L500.4100, L501.5200, L501.9520, L503.0106, L506.1001 #### [facility] [address] [place], [address] Basophils/100 WBC (Bld) 0.6 % Normal 0-1 [facility] Comment on above: Performed By: #### L 100.0100, L500.4050, L500.4100, L501.5200, L501.9520, L503.0106, L506.1001 #### [facility] [address] [place], [address] Eosinophils/100 WBC (Bld) 1.4 % Normal 0-5 [facility] Comment on above: Performed By: #### L 100.0100, L500.4050, L500.4100, L501.5200, L501.9520, L503.0106, L506.1001 #### [facility] [address] [place], [address] Erythrocyte distribution width (RBC) [Ratio] 12.9 % Normal 11.6-14.6 [facility] Comment on above: Performed By: #### L 100.0100, L500.4050, L500.4100, L501.5200, L501.9520, L503.0106, L506.1001 #### [facility] [address] [place], [address] Hematocrit (Bld) [Volume fraction] 45.5 % Normal 37-47 [facility] Comment on above: Performed By: #### L 100.0100, L500.4050, L500.4100, L501.5200, L501.9520, L503.0106, L506.1001 #### [facility] [address] [place], [address] Hemoglobin (Bld) [Mass/Vol] 15.4 g/dL High 12.0-15.0 [facility] Comment on above: Performed By: #### L 100.0100, L500.4050, L500.4100, L501.5200, L501.9520, L503.0106, L506.1001 #### [facility] [address] [place], [address] IG% 0.400 Normal 0.0-0.9 [facility] Comment on above: Result Comment: IG% - Immature Granulocytes (promyelocytes, myelocytes and metamyelocytes) > 1% indicates that a LEFT SHIFT is Present. Performed By: #### L 100.0100, L500.4050, L500.4100, L501.5200, L501.9520, L503.0106, L506.1001 #### [facility] [address] [place], [address] Lymphocytes/100 WBC (Bld) 22.2 % Normal 19-41 [facility] Comment on above: Performed By: #### L 100.0100, L500.4050, L500.4100, L501.5200, L501.9520, L503.0106, L506.1001 #### [facility] [address] [place], [address] MCH (RBC) [Entitic mass] 29.2 pg Normal 27.0-32.0 [facility] Comment on above: Performed By: #### L 100.0100, L500.4050, L500.4100, L501.5200, L501.9520, L503.0106, L506.1001 #### [facility] [address] [place], [address] MCHC (RBC) [Mass/Vol] 33.8 g/dL Normal 32-36 [facility] Comment on above: Performed By: #### L 100.0100, L500.4050, L500.4100, L501.5200, L501.9520, L503.0106, L506.1001 #### [facility] [address] [place], [address] MCV (RBC) [Entitic vol] 86.2 fL Normal 81-99 [facility] Comment on above: Performed By: #### L 100.0100, L500.4050, L500.4100, L501.5200, L501.9520, L503.0106, L506.1001 #### [facility] [address] [place], [address] Monocytes/100 WBC (Bld) 9.9 % Normal 0-10 [facility] Comment on above: Performed By: #### L 100.0100, L500.4050, L500.4100, L501.5200, L501.9520, L503.0106, L506.1001 #### [facility] [address] [place], [address] Neutrophils/100 WBC (Bld) 65.5 % Normal 47-70 [facility] Comment on above: Performed By: #### L 100.0100, L500.4050, L500.4100, L501.5200, L501.9520, L503.0106, L506.1001 #### [facility] [address] [place], [address] Nucleated RBC (Bld) [#/Vol] 0 10*3/uL Normal 0-5 [facility] Comment on above: Performed By: #### L 100.0100, L500.4050, L500.4100, L501.5200, L501.9520, L503.0106, L506.1001 #### [facility] [address] [place], [address] Platelet mean volume (Bld) [Entitic vol] 10.2 fL Normal 6.2-12.0 [facility] Comment on above: Performed By: #### L 100.0100, L500.4050, L500.4100, L501.5200, L501.9520, L503.0106, L506.1001 #### [facility] [address] [place], [address] Platelets (Bld) [#/Vol] 250 10*3/uL Normal 150-450 [facility] Comment on above: Performed By: #### L 100.0100, L500.4050, L500.4100, L501.5200, L501.9520, L503.0106, L506.1001 #### [facility] [address] [place], [address] RBC (Bld) [#/Vol] 5.28 10*6/uL Normal 4.2-5.4 [facility] Comment on above: Performed By: #### L 100.0100, L500.4050, L500.4100, L501.5200, L501.9520, L503.0106, L506.1001 #### [facility] [address] [place], [address] RDW SD 40.2 fl Normal 35.1-43.9 [facility] Comment on above: Performed By: #### L 100.0100, L500.4050, L500.4100, L501.5200, L501.9520, L503.0106, L506.1001 #### [facility] [address] [place], [address] WBC (Bld) [#/Vol] 8.0 10*3/uL Normal 4.4-11.0 [facility] Comment on above: Performed By: #### L 100.0100, L500.4050, L500.4100, L501.5200, L501.9520, L503.0106, L506.1001 #### [facility] [address] [place], [address] Comprehensive Metabolic Prof [facility] 09-09-2024 Albumin [Mass/Vol] 4.0 g/dL Normal 3.2-5.0 [facility] Comment on above: Performed By: #### L 100.0100, L500.4050, L500.4100, L501.5200, L501.9520, L503.0106, L506.1001 #### [facility] [address] [place], [address] Albumin/Globulin [Mass ratio] 1.2 {ratio} Normal 0.9-2.4 [facility] Comment on above: Performed By: #### L 100.0100, L500.4050, L500.4100, L501.5200, L501.9520, L503.0106, L506.1001 #### [facility] [address] [place], [address] ALK P 96 U/L Normal 45-117 [facility] Comment on above: Performed By: #### L 100.0100, L500.4050, L500.4100, L501.5200, L501.9520, L503.0106, L506.1001 #### [facility] [address] [place], [address] ALT [Catalytic activity/Vol] 26 U/L Normal 13-56 [facility] Comment on above: Performed By: #### L 100.0100, L500.4050, L500.4100, L501.5200, L501.9520, L503.0106, L506.1001 #### [facility] [address] [place], [address] AST [Catalytic activity/Vol] 22 U/L Normal 15-37 [facility] Comment on above: Performed By: #### L 100.0100, L500.4050, L500.4100, L501.5200, L501.9520, L503.0106, L506.1001 #### [facility] [address] [place], [address] Bilirubin [Mass/Vol] 1.90 mg/dL High 0.20-1.00 [facility] Comment on above: Result Comment: For patients on eltrombopag therapy, use of Dimension [place] TBIL is not recommended. Performed By: #### L 100.0100, L500.4050, L500.4100, L501.5200, L501.9520, L503.0106, L506.1001 #### [facility] [address] [place], [address] BUN/CRE 22.9 RATIO High 10-20 [facility] Comment on above: Performed By: #### L 100.0100, L500.4050, L500.4100, L501.5200, L501.9520, L503.0106, L506.1001 #### [facility] [address] [place], [address] CA,Total 9.4 mg/dL Normal 8.5-10.1 [facility] Comment on above: Performed By: #### L 100.0100, L500.4050, L500.4100, L501.5200, L501.9520, L503.0106, L506.1001 #### [facility] [address] [place], [address] Chloride [Moles/Vol] 99 mmol/L Normal 98-107 [facility] Comment on above: Performed By: #### L 100.0100, L500.4050, L500.4100, L501.5200, L501.9520, L503.0106, L506.1001 #### [facility] [address] [place], [address] CO2 [Moles/Vol] 30.0 mmol/L Normal 21.0-32.0 [facility] Comment on above: Performed By: #### L 100.0100, L500.4050, L500.4100, L501.5200, L501.9520, L503.0106, L506.1001 #### [facility] [address] [place], [address] Creatinine [Mass/Vol] 0.74 mg/dL Normal 0.55-1.02 [facility] Comment on above: Result Comment: The validity of the calculated GFR GFRAA in patients over 70 years has not been determined. Clinical correlation is essential. Performed By: #### L 100.0100, L500.4050, L500.4100, L501.5200, L501.9520, L503.0106, L506.1001 #### [facility] [address] [place], [address] EST GFR - AA 99 mL/min Normal >60 [facility] Comment on above: Result Comment: Afri can [place] GFR Calc Performed By: #### L 100.0100, L500.4050, L500.4100, L501.5200, L501.9520, L503.0106, L506.1001 #### [facility] [address] [place], [address] GAP 7 Normal 5-15 [facility] Comment on above: Performed By: #### L 100.0100, L500.4050, L500.4100, L501.5200, L501.9520, L503.0106, L506.1001 #### [facility] [address] [place], [address] GFR/1.73 sq M.predicted among non-blacks MDRD (S/P/Bld) [Vol rate/Area] 82 mL/min/{1.73_m2} Normal >60 [facility] Comment on above: Result Comment: Non- GFR Calc Performed By: #### L 100.0100, L500.4050, L500.4100, L501.5200, L501.9520, L503.0106, L506.1001 #### [facility] [address] [place], [address] Globulin (S) [Mass/Vol] 3.4 g/dL Normal 2.2-4.2 [facility] Comment on above: Performed By: #### L 100.0100, L500.4050, L500.4100, L501.5200, L501.9520, L503.0106, L506.1001 #### [facility] [address] [place], [address] Glucose [Mass/Vol] 107 mg/dL High 74-106 [facility] Comment on above: Result Comment: Fast ing Glucose result from 100 to 125 mg/dL suggests IMPAIRED HOMEOSTASIS per A.D.A. criteria. Performed By: #### L 100.0100, L500.4050, L500.4100, L501.5200, L501.9520, L503.0106, L506.1001 #### [facility] [address] [place], [address] Potassium [Moles/Vol] 3.2 mmol/L Low 3.5-5.1 [facility] Comment on above: Performed By: #### L 100.0100, L500.4050, L500.4100, L501.5200, L501.9520, L503.0106, L506.1001 #### [facility] [address] [place], [address] Sodium [Moles/Vol] 136 mmol/L Normal 136-145 [facility] Comment on above: Performed By: #### L 100.0100, L500.4050, L500.4100, L501.5200, L501.9520, L503.0106, L506.1001 #### [facility] [address] [place], [place], [id number] T PROT 7.4 g/dL Normal 6.4-8.2 [facility] Comment on above: Performed By: #### L 100.0100, L500.4050, L500.4100, L501.5200, L501.9520, L503.0106, L506.1001 #### [facility] [address] [place], [place], [id number] Urea nitrogen [Mass/Vol] 17 mg/dL Normal 7-18 [facility] Comment on above: Performed By: #### L 100.0100, L500.4050, L500.4100, L501.5200, L501.9520, L503.0106, L506.1001 #### [facility] [address] [place], [address] Lipid Profileon 09-09-2024 Cholesterol [Mass/Vol] 210 mg/dL High 200 [facility] Comment on above: Result Comment: <200 mg/dL Desirable 200-240 mg/dL Borderline >240 mg/dL High Risk Performed By: #### L 100.0100, L500.4050, L500.4100, L501.5200, L501.9520, L503.0106, L506.1001 #### [facility] [address] [place], [address] Cholesterol in HDL [Mass/Vol] 60 mg/dL Normal [facility] Comment on above: Result Comment: The drugs N-Acetylcysteine and Metamizole may falsely depress this assay. Reference Range HDL <40 mg/dL Low HDL Cholesterol HDL >or= 60 mg/dL High HDL Cholesterol Performed By: #### L 100.0100, L500.4050, L500.4100, L501.5200, L501.9520, L503.0106, L506.1001 #### [facility] [address] [place], [address] Cholesterol in LDL [Mass/Vol] 128 mg/dL Normal 0-130 [facility] Comment on above: Performed By: #### L 100.0100, L500.4050, L500.4100, L501.5200, L501.9520, L503.0106, L506.1001 #### [facility] [address] [place], [address] Cholesterol in VLDL [Mass/Vol] 22 mg/dL Normal 5-40 [facility] Comment on above: Performed By: #### L 100.0100, L500.4050, L500.4100, L501.5200, L501.9520, L503.0106, L506.1001 #### [facility] [address] [place], [address] Triglyceride [Mass/Vol] 109 mg/dL Normal [facility] Comment on above: Result Comment: The drugs N-Acetylcysteine and Metamizole may falsely depress this assay. Serum Triglycerides Reference Interval Normal <150 mg/dL Borderline high 150 - 199 mg/dL High 200 - 499 mg/dL Very High > or = 500 mg/dL Performed By: #### L 100.0100, L500.4050, L500.4100, L501.5200, L501.9520, L503.0106, L506.1001 #### [facility] [address] [place], [address] Magnesiumon 09-09-2024 Magnesium [Mass/Vol] 2.6 mg/dL Normal 1.6-2.6 [facility] Comment on above: Performed By: #### L 100.0100, L500.4050, L500.4100, L501.5200, L501.9520, L503.0106, L506.1001 #### [facility] [address] [place], [address] Thyroid Stim Hormone (TSH)on 09-09-2024 TSH 1.600 uIU/mL Normal 0.358-3.740 [facility] Comment on above: Performed By: #### L 100.0100, L500.4050, L500.4100, L501.5200, L501.9520, L503.0106, L506.1001 #### [facility] [address] [place], [place], [id number] Absolute lymphocyte countOrd ered By: Andrew Billingsley on 09-04-2023 Lymphocytes Auto (Unsp spec) [#/Vol] 1.69 10*3/uL 0.83-4.51 [facility] Basophil percentageOrdered B y: Andrew Billingsley on 09-04-2023 Basophils/100 WBC (Bld) 0.6 % 0-1 [facility] Bilirubin [Mass/Vol] 1.20 mg/dL 0.20-1.00 [facility] Comment on above: For patients on eltr ombopag therapy, use of Dimension [place] TBIL is not recommended. Chloride [Moles/Vol] 103 mmol/L 98-107 [facility] Cholesterol [Mass/Vol] 186 mg/dL <200 [facility] Comment on above: <200 mg/dL Desirable 200-240 mg/dL Borderline >240 mg/dL High Risk Eosinophils/100 WBC (Bld) 2.3 % 0-5 [facility] Glucose [Mass/Vol] 103 mg/dL 74-106 [facility] Comment on above: Fasting Glucose resu lt from 100 to 125 mg/dL suggests IMPAIRED HOMEOSTASIS per A.D.A. criteria. Neutrophils (Bld) [#/Vol] 3.9 10*3/uL 2.0-7.7 [facility] Neutrophils/100 WBC (Bld) 60.2 % 47-70 [facility] Potassium [Moles/Vol] 3.3 mmol/L 3.5-5.1 [facility] Protein [Mass/Vol] 7.1 g/dL 6.4-8.2 [facility] Sodium [Moles/Vol] 138 mmol/L 136-145 [facility] Triglyceride [Mass/Vol] 91 mg/dL <199 [facility] Comment on above: The drugs N-Acetylcy steine and Metamizole may falsely depress this assay.Serum Triglycerides Reference Interval Normal <150 mg/dL Borderline high 150 - 199 mg/dL High 200 - 499 mg/dL Very High > or = 500 mg/dL WBC (Bld) [#/Vol] 6.4 10*3/uL 4.4-11.0 [facility] Blood erythrocytes count (nu mber/volume)Ordered By: Andrew Billingsley on 09-04-2023 RBC (Bld) [#/Vol] 5.24 10*6/uL 4.2-5.4 [facility] Blood hemoglobin measurement (mass/volume)Ordered By: Andrew Billingsley on 09-04-2023 Hemoglobin (Bld) [Mass/Vol] 15.1 g/dL 12.0-15.0 [facility] Blood lymphocytes/100 leukoc ytesOrdered By: Andrew Billingsley on 09-04-2023 Lymphocytes/100 WBC (Bld) 26.4 % 19-41 [facility] Blood monocytes/100 leukocyt esOrdered By: Andrew Billingsley on 09-04-2023 Monocytes/100 WBC (Bld) 10.3 % 0-10 [facility] Blood platelet mean volumeOr dered By: Andrew Billingsley on 09-04-2023 Platelet mean volume (Bld) [Entitic vol] 11.2 fL 6.2-12.0 [facility] Determination of erythrocyte mean corpuscular volume (MCV)Ordered By: Andrew Billingsley on 09-04-2023 MCV (RBC) [Entitic vol] 87.2 fL 81-99 [facility] Hematocrit Auto (Bld) [Volum e fraction]Ordered By: Andrew Billingsley on 09-04-2023 Hematocrit (Bld) [Volume fraction] 45.7 % 37-47 [facility] Laboratory - Chemistry and C hemistry - challengeOrdered By: Andrew Billingsley on 09-04-2023 ALP [Catalytic activity/Vol] 94 U/L 45-117 [facility] ALT [Catalytic activity/Vol] 28 U/L 13-56 [facility] CO2 [Moles/Vol] 30.0 mmol/L 21.0-32.0 [facility] Globulin (S) [Mass/Vol] 3.3 g/dL 2.2-4.2 [facility] Urea nitrogen/Creatinine [Mass ratio] 19.8 mg/mg 10-20 [facility] Laboratory - Hematology and Cell countsOrdered By: Andrew Billingsley on 09-04-2023 Erythrocyte distribution width (RBC) [Entitic vol] 42.7 fL 35.1-43.9 [facility] Erythrocyte distribution width (RBC) [Ratio] 13.4 % 11.6-14.6 [facility] Immature granulocytes/100 WBC (Bld) 0.200 % 0.0-0.9 [facility] Comment on above: IG% - Immature Granu locytes (promyelocytes, myelocytes and metamyelocytes) > 1% indicates that a LEFT SHIFT is Present. MCH (RBC) [Entitic mass] 28.8 pg 27.0-32.0 [facility] Nucleated RBC/100 WBC (Bld) [Ratio] 0 % 0-5 [facility] MCHC Auto (RBC) [Mass/Vol]Or dered By: Andrew Billingsley on 09-04-2023 MCHC (RBC) [Mass/Vol] 33.0 g/dL 32-36 [facility] No Panel InformationOrdered By: Andrew Billingsley on 09-04-2023 Estimated GFR (MDRD) Amer 90 mL/min >60 [facility] Comment on above: GFR Calc Estimated GFR (MDRD) Non-Af Amer 75 mL/min >60 [facility] Comment on above: Non- GFR Calc Thyroid Stimulating Hormone (TSH) 1.44 uIU/mL 0.358-3.74 [facility] Platelets bldOrdered By: Lexis Billingsley on 09-04-2023 Platelets (Bld) [#/Vol] 234 10*3/uL 150-450 [facility] Serum or plasma albumin dequan urement (mass/volume)Ordered By: Andrew Billingsley on 09-04-2023 Albumin [Mass/Vol] 3.8 g/dL 3.2-5.0 [facility] Serum or plasma albumin/glob ulin mass ratioOrdered By: Andrew Billingsley on 09-04-2023 Albumin/Globulin [Mass ratio] 1.2 {ratio} 0.9-2.4 [facility] Serum or plasma calcium dequan urement (mass/volume)Ordered By: Andrew Billingsley on 09-04-2023 Calcium [Mass/Vol] 9.0 mg/dL 8.5-10.1 [facility] Serum or plasma cholesterol in HDL measurement (mass/volume)Ordered By: Andrew Billingsley on 09-04-2023 Cholesterol in HDL [Mass/Vol] 52 mg/dL >40 [facility] Comment on above: The drugs N-Acetylcy steine and Metamizole may falsely depress this assay. Reference Range HDL <40 mg/dL Low HDL Cholesterol HDL >or= 60 mg/dL High HDL Cholesterol Serum or plasma cholesterol in VLDL measurement (mass/volume)Ordered By: Andrew Billingsley on 09-04-2023 Cholesterol in VLDL [Mass/Vol] 18 mg/dL 5-40 [facility] Serum or plasma creatinine m easurement (mass/volume)Ordered By: Andrew Billingsley on 09-04-2023 Creatinine [Mass/Vol] 0.81 mg/dL 0.55-1.02 [facility] Comment on above: The validity of the calculated GFR & GFRAA in patients over 70 years has not been determined. Clinical correlation is essential. Serum or plasma low density lipoprotein (LDL) cholesterol measurement (mass/volume)Ordered By: Andrew Billingsley on 09-04-2023 Cholesterol in LDL [Mass/Vol] 116 mg/dL 0-130 [facility] Serum or plasma urea nitroge n measurement (mass/volume)Ordered By: Andrew Billingsley on 09-04-2023 Urea nitrogen [Mass/Vol] 16 mg/dL 7-18 [facility] Thin prep Papanicolaou smear with manual screeningOrdered By: Andrew Billingsley on 09-04-2023 Thin prep Papanicolaou smear with manual screening 25 U/L 15-37 [facility] Thin prep Papanicolaou smear with manual screening 5 5-15 [facility] Whole blood hemoglobin A1c/t otal hemoglobin ratio (mass fraction)Ordered By: Andrew Billingsley on 09-04-2023 HbA1c (Bld) [Mass fraction] 5.3 % 3.8-5.6 [facility] Comment on above: Normal < 5.7 % Predi abetic 5.7 - 6.4 % Diabetic >or= 6.5 % Please note range changes. Basophil percentageOrdered B y: Andrew Billingsley on 05-07-2023 Chloride [Moles/Vol] 95 mmol/L 98-107 [facility] Glucose [Mass/Vol] 114 mg/dL 74-106 [facility] Comment on above: Fasting Glucose resu lt from 100 to 125 mg/dL suggests IMPAIRED HOMEOSTASIS per A.D.A. criteria. Potassium [Moles/Vol] 3.1 mmol/L 3.5-5.1 [facility] Sodium [Moles/Vol] 131 mmol/L 136-145 [facility] Laboratory - Chemistry and C hemistry - challengeOrdered By: Andrew Billingsley on 05-07-2023 CO2 [Moles/Vol] 29.0 mmol/L 21.0-32.0 [facility] Urea nitrogen/Creatinine [Mass ratio] 15.0 mg/mg 10-20 [facility] No Panel InformationOrdered By: Andrew Billingsley on 05-07-2023 Estimated GFR (MDRD) Amer 77 mL/min >60 [facility] Comment on above: GFR Calc Estimated GFR (MDRD) Non-Af Amer 63 mL/min >60 [facility] Comment on above: Non- GFR Calc Serum or plasma calcium dequan urement (mass/volume)Ordered By: Andrew Billingsley on 05-07-2023 Calcium [Mass/Vol] 9.9 mg/dL 8.5-10.1 [facility] Serum or plasma creatinine m easurement (mass/volume)Ordered By: Andrew Billingsley on 05-07-2023 Creatinine [Mass/Vol] 0.93 mg/dL 0.55-1.02 [facility] Comment on above: The validity of the calculated GFR & GFRAA in patients over 70 years has not been determined. Clinical correlation is essential. Serum or plasma urea nitroge n measurement (mass/volume)Ordered By: Andrew Billingsley on 05-07-2023 Urea nitrogen [Mass/Vol] 14 mg/dL 7-18 [facility] Thin prep Papanicolaou smear with manual screeningOrdered By: Andrew Billingsley on 05-07-2023 Thin prep Papanicolaou smear with manual screening 7 - [facility] Absolute lymphocyte countOrd ered By: Andrew Billingsley on 03-28-2023 Lymphocytes Auto (Unsp spec) [#/Vol] 2.06 10*3/uL 0.83-4.51 [facility] Basophil percentageOrdered B y: Andrew Billingsley on 03-28-2023 Basophils/100 WBC (Bld) 1.0 % 0-1 [facility] Bilirubin [Mass/Vol] 1.00 mg/dL 0.20-1.00 [facility] Comment on above: For patients on eltr ombopag therapy, use of Dimension [place] TBIL is not recommended. Chloride [Moles/Vol] 97 mmol/L 98-107 [facility] Cholesterol [Mass/Vol] 180 mg/dL <200 [facility] Comment on above: <200 mg/dL Desirable 200-240 mg/dL Borderline >240 mg/dL High Risk Eosinophils/100 WBC (Bld) 2.4 % 0-5 [facility] Glucose [Mass/Vol] 121 mg/dL 74-106 [facility] Comment on above: Fasting Glucose resu lt from 100 to 125 mg/dL suggests IMPAIRED HOMEOSTASIS per A.D.A. criteria. Neutrophils (Bld) [#/Vol] 4.1 10*3/uL 2.0-7.7 [facility] Neutrophils/100 WBC (Bld) 57.3 % 47-70 [facility] Potassium [Moles/Vol] 3.6 mmol/L 3.5-5.1 [facility] Protein [Mass/Vol] 7.9 g/dL 6.4-8.2 [facility] Sodium [Moles/Vol] 135 mmol/L 136-145 [facility] Triglyceride [Mass/Vol] 135 mg/dL <199 [facility] Comment on above: The drugs N-Acetylcy steine and Metamizole may falsely depress this assay.Serum Triglycerides Reference Interval Normal <150 mg/dL Borderline high 150 - 199 mg/dL High 200 - 499 mg/dL Very High > or = 500 mg/dL WBC (Bld) [#/Vol] 7.1 10*3/uL 4.4-11.0 [facility] Blood erythrocytes count (nu mber/volume)Ordered By: Andrew Billingsley on 03-28-2023 RBC (Bld) [#/Vol] 5.41 10*6/uL 4.2-5.4 [facility] Blood hemoglobin measurement (mass/volume)Ordered By: Anderw Billingsley on 03-28-2023 Hemoglobin (Bld) [Mass/Vol] 15.6 g/dL 12.0-15.0 [facility] Blood lymphocytes/100 leukoc ytesOrdered By: Andrew Billingsley on 03-28-2023 Lymphocytes/100 WBC (Bld) 29.1 % 19-41 [facility] Blood monocytes/100 leukocyt esOrdered By: Andrew Billingsley on 03-28-2023 Monocytes/100 WBC (Bld) 9.9 % 0-10 [facility] Blood platelet mean volumeOr dered By: Andrew Billingsley on 03-28-2023 Platelet mean volume (Bld) [Entitic vol] 11.4 fL 6.2-12.0 [facility] Determination of erythrocyte mean corpuscular volume (MCV)Ordered By: Andrew Billingsley on 03-28-2023 MCV (RBC) [Entitic vol] 88.5 fL 81-99 [facility] Hematocrit Auto (Bld) [Volum e fraction]Ordered By: Andrew Billingsley on 03-28-2023 Hematocrit (Bld) [Volume fraction] 47.9 % 37-47 [facility] Laboratory - Chemistry and C hemistry - challengeOrdered By: Andrew Billingsley on 03-28-2023 ALP [Catalytic activity/Vol] 97 U/L 45-117 [facility] ALT [Catalytic activity/Vol] 53 U/L 13-56 [facility] CO2 [Moles/Vol] 29.0 mmol/L 21.0-32.0 [facility] Globulin (S) [Mass/Vol] 3.6 g/dL 2.2-4.2 [facility] Magnesium [Mass/Vol] 1.9 mg/dL 1.6-2.6 [facility] Urea nitrogen/Creatinine [Mass ratio] 27.8 mg/mg 10-20 [facility] Laboratory - Hematology and Cell countsOrdered By: Andrew Billingsley on 03-28-2023 Erythrocyte distribution width (RBC) [Entitic vol] 41.3 fL 35.1-43.9 [facility] Erythrocyte distribution width (RBC) [Ratio] 12.8 % 11.6-14.6 [facility] Immature granulocytes/100 WBC (Bld) 0.300 % 0.0-0.9 [facility] Comment on above: IG% - Immature Granu locytes (promyelocytes, myelocytes and metamyelocytes) > 1% indicates that a LEFT SHIFT is Present. MCH (RBC) [Entitic mass] 28.8 pg 27.0-32.0 [facility] Nucleated RBC/100 WBC (Bld) [Ratio] 0 % 0-5 [facility] MCHC Auto (RBC) [Mass/Vol]Or dered By: Andrew Billingsley on 03-28-2023 MCHC (RBC) [Mass/Vol] 32.6 g/dL 32-36 [facility] No Panel InformationOrdered By: Andrew Billingsley on 03-28-2023 Estimated GFR (MDRD) Amer 76 mL/min >60 [facility] Comment on above: GFR Calc Estimated GFR (MDRD) Non-Af Amer 63 mL/min >60 [facility] Comment on above: Non- GFR Calc Thyroid Stimulating Hormone (TSH) 2.68 uIU/mL 0.358-3.74 [facility] Vitamin D 25-Hydroxy 62.4 ng/mL [facility] Comment on above: Vitamin D 25(OH) Sta tus Range Deficiency <20 ng/mL (50nmol/L) Insufficiency 20 - 30 ng/mL (50 - 75 nmol/L) Sufficiency 30 - 100 ng/mL (75 - 250 nmol/L) Toxicity >100 ng/mL (>250 nmol/L) Platelets bldOrdered By: Lexis Billingsley on 03-28-2023 Platelets (Bld) [#/Vol] 267 10*3/uL 150-450 [facility] Serum or plasma albumin dequan urement (mass/volume)Ordered By: Andrew Billingsley on 03-28-2023 Albumin [Mass/Vol] 4.3 g/dL 3.2-5.0 [facility] Serum or plasma albumin/glob ulin mass ratioOrdered By: Andrew Billingsley on 03-28-2023 Albumin/Globulin [Mass ratio] 1.2 {ratio} 0.9-2.4 [facility] Serum or plasma calcium dequan urement (mass/volume)Ordered By: Andrew Billingsley on 03-28-2023 Calcium [Mass/Vol] 10.2 mg/dL 8.5-10.1 [facility] Serum or plasma cholesterol in HDL measurement (mass/volume)Ordered By: Andrew Billingsley on 03-28-2023 Cholesterol in HDL [Mass/Vol] 47 mg/dL >40 [facility] Comment on above: The drugs N-Acetylcy steine and Metamizole may falsely depress this assay. Reference Range HDL <40 mg/dL Low HDL Cholesterol HDL >or= 60 mg/dL High HDL Cholesterol Serum or plasma cholesterol in VLDL measurement (mass/volume)Ordered By: Andrew Billingsley on 03-28-2023 Cholesterol in VLDL [Mass/Vol] 27 mg/dL 5-40 [facility] Serum or plasma creatinine m easurement (mass/volume)Ordered By: Andrew Billingsley on 03-28-2023 Creatinine [Mass/Vol] 0.93 mg/dL 0.55-1.02 [facility] Comment on above: The validity of the calculated GFR & GFRAA in patients over 70 years has not been determined. Clinical correlation is essential. Serum or plasma low density lipoprotein (LDL) cholesterol measurement (mass/volume)Ordered By: Andrew Billingsley on 05-19-2023 Cholesterol in LDL [Mass/Vol] 106 mg/dL 0-130 [facility] Serum or plasma urea nitroge n measurement (mass/volume)Ordered By: Andrew Billingsley on 03-28-2023 Urea nitrogen [Mass/Vol] 26 mg/dL 7-18 [facility] Thin prep Papanicolaou smear with manual screeningOrdered By: Andrew Billingsley on 03-28-2023 Thin prep Papanicolaou smear with manual screening 29 U/L 15-37 [facility] Thin prep Papanicolaou smear with manual screening 9 5-15 [facility] Whole blood hemoglobin A1c/t otal hemoglobin ratio (mass fraction)Ordered By: Andrew Billingsley on 03-28-2023 HbA1c (Bld) [Mass fraction] 6.0 % 3.8-5.6 [facility] Comment on above: Normal < 5.7 % Predi abetic 5.7 - 6.4 % Diabetic >or= 6.5 % Please note range changes. Absolute lymphocyte counton 09-30-2022 Lymphocytes Auto (Unsp spec) [#/Vol] 2.40 10*3/uL 0.83-4.51 [facility] Work Phone: Basophil percentageon 2021 Basophils/100 WBC (Bld) 0.5 % 0-1 [facility] Work Phone: Bilirubin [Mass/Vol] 0.90 mg/dL 0.20-1.00 [facility] Work Phone: Comment on above: For patients on eltr ombopag therapy, use of Dimension [place] TBIL is not recommended. Chloride [Moles/Vol] 97 mmol/L 98-107 [facility] Work Phone: Cholesterol [Mass/Vol] 197 mg/dL <200 [facility] Work Phone: Comment on above: <200 mg/dL Desirable 200-240 mg/dL Borderline >240 mg/dL High Risk Eosinophils/100 WBC (Bld) 2.8 % 0-5 [facility] Work Phone: Glucose [Mass/Vol] 126 mg/dL 74-106 [facility] Work Phone: Comment on above: Fasting Glucose resu lt greater than or equal to 126 mg/dL suggests DIABETES MELLITUS per A.D.A. criteria. Neutrophils (Bld) [#/Vol] 5.9 10*3/uL 2.0-7.7 [facility] Work Phone: Neutrophils/100 WBC (Bld) 62.2 % 47-70 [facility] Work Phone: Potassium [Moles/Vol] 3.9 mmol/L 3.5-5.1 [facility] Work Phone: Protein [Mass/Vol] 7.5 g/dL 6.4-8.2 [facility] Work Phone: Sodium [Moles/Vol] 135 mmol/L 136-145 [facility] Work Phone: Triglyceride [Mass/Vol] 264 mg/dL <199 [facility] Work Phone: Comment on above: The drugs N-Acetylcy steine and Metamizole may falsely depress this assay.Serum Triglycerides Reference Interval Normal <150 mg/dL Borderline high 150 - 199 mg/dL High 200 - 499 mg/dL Very High > or = 500 mg/dL WBC (Bld) [#/Vol] 9.5 10*3/uL 4.4-11.0 [facility] Work Phone: Blood erythrocytes count (nu mber/volume)on 09-30-2022 RBC (Bld) [#/Vol] 5.19 10*6/uL 4.2-5.4 [facility] Work Phone: Blood hemoglobin measurement (mass/volume)on 09-30-2022 Hemoglobin (Bld) [Mass/Vol] 14.7 g/dL 12.0-15.0 [facility] Work Phone: Blood lymphocytes/100 leukoc yteson 09-30-2022 Lymphocytes/100 WBC (Bld) 25.4 % 19-41 [facility] Work Phone: Blood monocytes/100 leukocyt eson 09-30-2022 Monocytes/100 WBC (Bld) 8.8 % 0-10 [facility] Work Phone: Blood platelet mean volumeon 09-30-2022 Platelet mean volume (Bld) [Entitic vol] 10.4 fL 6.2-12.0 [facility] Work Phone: Determination of erythrocyte mean corpuscular volume (MCV)on 09-30-2022 MCV (RBC) [Entitic vol] 85.7 fL 81-99 [facility] Work Phone: Hematocrit Auto (Bld) [Volum e fraction]on 09-30-2022 Hematocrit (Bld) [Volume fraction] 44.5 % 37-47 [facility] Work Phone: Laboratory - Chemistry and C hemistry - challengeon 09-30-2022 ALP [Catalytic activity/Vol] 109 U/L 45-117 [facility] Work Phone: ALT [Catalytic activity/Vol] 60 U/L 13-56 [facility] Work Phone: CO2 [Moles/Vol] 28.0 mmol/L 21.0-32.0 [facility] Work Phone: Globulin (S) [Mass/Vol] 3.6 g/dL 2.2-4.2 [facility] Work Phone: Urea nitrogen/Creatinine [Mass ratio] 26.8 mg/mg 10-20 [facility] Work Phone: Laboratory - Hematology and Cell countson 09-30-2022 Erythrocyte distribution width (RBC) [Entitic vol] 39.6 fL 35.1-43.9 [facility] Work Phone: Erythrocyte distribution width (RBC) [Ratio] 12.9 % 11.6-14.6 [facility] Work Phone: Immature granulocytes/100 WBC (Bld) 0.300 % 0.0-0.9 [facility] Work Phone: Comment on above: IG% - Immature Granu locytes (promyelocytes, myelocytes and metamyelocytes) > 1% indicates that a LEFT SHIFT is Present. MCH (RBC) [Entitic mass] 28.3 pg 27.0-32.0 [facility] Work Phone: Nucleated RBC/100 WBC (Bld) [Ratio] 0 % 0-5 [facility] Work Phone: MCHC Auto (RBC) [Mass/Vol]on 09-30-2022 MCHC (RBC) [Mass/Vol] 33.0 g/dL 32-36 [facility] Work Phone: No Panel Informationon 09-30 Estimated GFR (MDRD) Amer 84 mL/min >60 [facility] Work Phone: Comment on above: GFR Calc Estimated GFR (MDRD) Non-Af Amer 70 mL/min >60 [facility] Work Phone: Comment on above: Non- GFR Calc Thyroid Stimulating Hormone (TSH) 2.63 uIU/mL 0.358-3.74 [facility] Work Phone: Vitamin D 25-Hydroxy 48.6 ng/mL [facility] Work Phone: Comment on above: Vitamin D 25(OH) Sta tus Range Deficiency <20 ng/mL (50nmol/L) Insufficiency 20 - 30 ng/mL (50 - 75 nmol/L) Sufficiency 30 - 100 ng/mL (75 - 250 nmol/L) Toxicity >100 ng/mL (>250 nmol/L) Platelets bldon 09-30-2022 Platelets (Bld) [#/Vol] 292 10*3/uL 150-450 [facility] Work Phone: Serum or plasma albumin dequan urement (mass/volume)on 09-30-2022 Albumin [Mass/Vol] 3.9 g/dL 3.2-5.0 [facility] Work Phone: Serum or plasma albumin/glob ulin mass ratioon 09-30-2022 Albumin/Globulin [Mass ratio] 1.1 {ratio} 0.9-2.4 [facility] Work Phone: Serum or plasma calcium dequan urement (mass/volume)on 09-30-2022 Calcium [Mass/Vol] 9.1 mg/dL 8.5-10.1 [facility] Work Phone: Serum or plasma cholesterol in HDL measurement (mass/volume)on 09-30-2022 Cholesterol in HDL [Mass/Vol] 45 mg/dL >40 [facility] Work Phone: Comment on above: The drugs N-Acetylcy steine and Metamizole may falsely depress this assay. Reference Range HDL <40 mg/dL Low HDL Cholesterol HDL >or= 60 mg/dL High HDL Cholesterol Serum or plasma cholesterol in VLDL measurement (mass/volume)on 09-30-2022 Cholesterol in VLDL [Mass/Vol] 53 mg/dL 5-40 [facility] Work Phone: Serum or plasma creatinine m easurement (mass/volume)on 09-30-2022 Creatinine [Mass/Vol] 0.86 mg/dL 0.55-1.02 [facility] Work Phone: Comment on above: The validity of the calculated GFR & GFRAA in patients over 70 years has not been determined. Clinical correlation is essential. Serum or plasma low density lipoprotein (LDL) cholesterol measurement (mass/volume)on 09-30-2022 Cholesterol in LDL [Mass/Vol] 99 mg/dL 0-130 [facility] Work Phone: Serum or plasma urea nitroge n measurement (mass/volume)on 09-30-2022 Urea nitrogen [Mass/Vol] 23 mg/dL 7-18 [facility] Work Phone: Thin prep Papanicolaou smear with manual screeningon 09-30-2022 Thin prep Papanicolaou smear with manual screening 33 U/L 15-37 [facility] Work Phone: Thin prep Papanicolaou smear with manual screening 10 5-15 [facility] Work Phone: Whole blood hemoglobin A1c/t otal hemoglobin ratio (mass fraction)on 09-30-2022 HbA1c (Bld) [Mass fraction] 6.4 % 3.8-5.6 [facility] Work Phone: Comment on above: Normal < 5.7 % Predi abetic 5.7 - 6.4 % Diabetic >or= 6.5 % Please note range changes. Absolute lymphocyte counton 07-14-2022 Lymphocytes Auto (Unsp spec) [#/Vol] 1.56 10*3/uL 0.83-4.51 [facility] Work Phone: Basophil percentageon 2021 Basophils/100 WBC (Bld) 0.4 % 0-1 [facility] Work Phone: Bilirubin [Mass/Vol] 1.00 mg/dL 0.20-1.00 [facility] Work Phone: Comment on above: For patients on eltr ombopag therapy, use of Dimension [place] TBIL is not recommended. Chloride [Moles/Vol] 98 mmol/L 98-107 [facility] Work Phone: Eosinophils/100 WBC (Bld) 1.4 % 0-5 [facility] Work Phone: Glucose [Mass/Vol] 139 mg/dL 74-106 [facility] Work Phone: Comment on above: Fasting Glucose resu lt greater than or equal to 126 mg/dL suggests DIABETES MELLITUS per A.D.A. criteria. Neutrophils (Bld) [#/Vol] 10.1 10*3/uL 2.0-7.7 [facility] Work Phone: Neutrophils/100 WBC (Bld) 76.7 % 47-70 [facility] Work Phone: Potassium [Moles/Vol] 3.5 mmol/L 3.5-5.1 [facility] Work Phone: Protein [Mass/Vol] 6.1 g/dL 6.4-8.2 [facility] Work Phone: Sodium [Moles/Vol] 135 mmol/L 136-145 [facility] Work Phone: WBC (Bld) [#/Vol] 13.1 10*3/uL 4.4-11.0 [facility] Work Phone: Blood erythrocytes count (nu mber/volume)on 07-14-2022 RBC (Bld) [#/Vol] 3.79 10*6/uL 4.2-5.4 [facility] Work Phone: Blood hemoglobin measurement (mass/volume)on 07-14-2022 Hemoglobin (Bld) [Mass/Vol] 11.3 g/dL 12.0-15.0 [facility] Work Phone: Blood lymphocytes/100 leukoc yteson 07-14-2022 Lymphocytes/100 WBC (Bld) 11.9 % 19-41 [facility] Work Phone: Blood monocytes/100 leukocyt eson 07-14-2022 Monocytes/100 WBC (Bld) 8.8 % 0-10 [facility] Work Phone: [phone] Blood platelet mean volumeon 07-14-2022 Platelet mean volume (Bld) [Entitic vol] 10.5 fL 6.2-12.0 [facility] Work Phone: Determination of erythrocyte mean corpuscular volume (MCV)on 07-14-2022 MCV (RBC) [Entitic vol] 90.2 fL 81-99 [facility] Work Phone: Hematocrit Auto (Bld) [Volum e fraction]on 07-14-2022 Hematocrit (Bld) [Volume fraction] 34.2 % 37-47 [facility] Work Phone: [phone] Laboratory - Chemistry and C hemistry - challengeon 07-14-2022 ALP [Catalytic activity/Vol] 101 U/L 45-117 [facility] Work Phone: [phone] ALT [Catalytic activity/Vol] 41 U/L 13-56 [facility] Work Phone: CO2 [Moles/Vol] 28.0 mmol/L 21.0-32.0 [facility] Work Phone: Globulin (S) [Mass/Vol] 3.5 g/dL 2.2-4.2 [facility] Work Phone: Urea nitrogen/Creatinine [Mass ratio] 18.6 mg/mg 10-20 [facility] Work Phone: Laboratory - Hematology and Cell countson 07-14-2022 Erythrocyte distribution width (RBC) [Entitic vol] 42.1 fL 35.1-43.9 [facility] Work Phone: Erythrocyte distribution width (RBC) [Ratio] 12.8 % 11.6-14.6 [facility] Work Phone: Immature granulocytes/100 WBC (Bld) 0.800 % 0.0-0.9 [facility] Work Phone: Comment on above: IG% - Immature Granu locytes (promyelocytes, myelocytes and metamyelocytes) > 1% indicates that a LEFT SHIFT is Present. MCH (RBC) [Entitic mass] 29.8 pg 27.0-32.0 [facility] Work Phone: Nucleated RBC/100 WBC (Bld) [Ratio] 0 % 0-5 [facility] Work Phone: MCHC Auto (RBC) [Mass/Vol]on 07-14-2022 MCHC (RBC) [Mass/Vol] 33.0 g/dL 32-36 [facility] Work Phone: No Panel Informationon 07-14 Estimated Creatinine Clearance Calc 50.41 ml/min [facility] Work Phone: Estimated GFR (MDRD) Amer 130 mL/min >60 [facility] Work Phone: Comment on above: GFR Calc Estimated GFR (MDRD) Non-Af Amer 108 mL/min >60 [facility] Work Phone: Comment on above: Non- GFR Calc Platelets bldon 07-14-2022 Platelets (Bld) [#/Vol] 239 10*3/uL 150-450 [facility] Work Phone: Serum or plasma albumin dequan urement (mass/volume)on 07-14-2022 Albumin [Mass/Vol] 2.6 g/dL 3.2-5.0 [facility] Work Phone: Serum or plasma albumin/glob ulin mass ratioon 07-14-2022 Albumin/Globulin [Mass ratio] 0.7 {ratio} 0.9-2.4 [facility] Work Phone: Serum or plasma calcium dequan urement (mass/volume)on 07-14-2022 Calcium [Mass/Vol] 8.3 mg/dL 8.5-10.1 [facility] Work Phone: Serum or plasma creatinine m easurement (mass/volume)on 07-14-2022 Creatinine [Mass/Vol] 0.59 mg/dL 0.55-1.02 [facility] Work Phone: Comment on above: The validity of the calculated GFR & GFRAA in patients over 70 years has not been determined. Clinical correlation is essential. Serum or plasma urea nitroge n measurement (mass/volume)on 07-14-2022 Urea nitrogen [Mass/Vol] 11 mg/dL 7-18 [facility] Work Phone: Thin prep Papanicolaou smear with manual screeningon 07-14-2022 Thin prep Papanicolaou smear with manual screening 25 U/L 15-37 [facility] Work Phone: Thin prep Papanicolaou smear with manual screening 9 5-15 [facility] Work Phone: Blood manual differential co mment interpretation (narrative result)on 07-13-2022 Manual differential comment Ananth (Bld) [Interp] SCANNED [facility] Work Phone: Giardia lamblia ag stool EIA on 07-13-2022 G. lamblia Ag IA Ql (Stl) Negative Negative [facility] Work Phone: Comment on above: Performed at: [address] [id number] Director: Rick Meadows PhD, Phone: [phone] Laboratory - Chemistry and C hemistry - challengeon 07-13-2022 Magnesium [Mass/Vol] 1.8 mg/dL 1.6-2.6 [facility] Work Phone: No Panel Informationon 07-13 Thyroid Stimulating Hormone (TSH) 0.92 uIU/mL 0.358-3.74 [facility] Work Phone: Review by pathologiston Pathologist review Ananth (Unsp spec) [Interp] Aline mccormick [facility] Work Phone: Pathologist review Ananth (Unsp spec) [Interp] Reviewed [facility] Work Phone: Comment on above: Previous reported re sult: Aline mccormick Edited by: JANEE on 07/16/22:1342Neutrophilic leukocytosis.Clinical correlation necessary.Linden Urena M.D. 07/16/22 AMENDED REPORT 07/16/22 1342 PATH REV previously reported as: Aline mccormick Absolute lymphocyte counton 07-12-2022 Lymphocytes Auto (Unsp spec) [#/Vol] 1.71 10*3/uL 0.83-4.51 [facility] Work Phone: Basophil percentageon 2021 Basophils/100 WBC (Bld) 0.2 % 0-1 [facility] Work Phone: Bilirubin [Mass/Vol] 1.60 mg/dL 0.20-1.00 [facility] Work Phone: Comment on above: For patients on eltr ombopag therapy, use of Dimension [place] TBIL is not recommended. Chloride [Moles/Vol] 97 mmol/L 98-107 [facility] Work Phone: Eosinophils/100 WBC (Bld) 0.3 % 0-5 [facility] Work Phone: Glucose [Mass/Vol] 159 mg/dL 74-106 [facility] Work Phone: Comment on above: Fasting Glucose resu lt greater than or equal to 126 mg/dL suggests DIABETES MELLITUS per A.D.A. criteria. Neutrophils (Bld) [#/Vol] 12.2 10*3/uL 2.0-7.7 [facility] Work Phone: Neutrophils/100 WBC (Bld) 78.8 % 47-70 [facility] Work Phone: Potassium [Moles/Vol] 3.2 mmol/L 3.5-5.1 [facility] Work Phone: Protein [Mass/Vol] 7.0 g/dL 6.4-8.2 [facility] Work Phone: Sodium [Moles/Vol] 135 mmol/L 136-145 [facility] Work Phone: WBC (Bld) [#/Vol] 15.5 10*3/uL 4.4-11.0 [facility] Work Phone: Blood erythrocytes count (nu mber/volume)on 07-12-2022 RBC (Bld) [#/Vol] 4.28 10*6/uL 4.2-5.4 [facility] Work Phone: Blood hemoglobin measurement (mass/volume)on 07-12-2022 Hemoglobin (Bld) [Mass/Vol] 12.7 g/dL 12.0-15.0 [facility] Work Phone: Blood lymphocytes/100 leukoc yteson 07-12-2022 Lymphocytes/100 WBC (Bld) 11.1 % 19-41 [facility] Work Phone: [phone] Blood monocytes/100 leukocyt eson 07-12-2022 Monocytes/100 WBC (Bld) 9.1 % 0-10 [facility] Work Phone: Blood platelet mean volumeon 07-12-2022 Platelet mean volume (Bld) [Entitic vol] 11.1 fL 6.2-12.0 [facility] Work Phone: Determination of erythrocyte mean corpuscular volume (MCV)on 07-12-2022 MCV (RBC) [Entitic vol] 87.4 fL 81-99 [facility] Work Phone: Direct bilirubinon 2 Bilirubin.direct [Mass/Vol] 0.40 mg/dL 0.00-0.30 [facility] Work Phone: Hematocrit Auto (Bld) [Volum e fraction]on 07-12-2022 Hematocrit (Bld) [Volume fraction] 37.4 % 37-47 [facility] Work Phone: Laboratory - Chemistry and C hemistry - challengeon 07-12-2022 ALP [Catalytic activity/Vol] 145 U/L 45-117 [facility] Work Phone: ALT [Catalytic activity/Vol] 57 U/L 13-56 [facility] Work Phone: CO2 [Moles/Vol] 28.0 mmol/L 21.0-32.0 [facility] Work Phone: Globulin (S) [Mass/Vol] 3.8 g/dL 2.2-4.2 [facility] Work Phone: Urea nitrogen/Creatinine [Mass ratio] 17.6 mg/mg 10-20 [facility] Work Phone: Laboratory - Hematology and Cell countson 07-12-2022 Erythrocyte distribution width (RBC) [Entitic vol] 40.8 fL 35.1-43.9 [facility] Work Phone: Erythrocyte distribution width (RBC) [Ratio] 13.0 % 11.6-14.6 [facility] Work Phone: Immature granulocytes/100 WBC (Bld) 0.500 % 0.0-0.9 [facility] Work Phone: Comment on above: IG% - Immature Granu locytes (promyelocytes, myelocytes and metamyelocytes) > 1% indicates that a LEFT SHIFT is Present. MCH (RBC) [Entitic mass] 29.7 pg 27.0-32.0 [facility] Work Phone: Nucleated RBC/100 WBC (Bld) [Ratio] 0 % 0-5 [facility] Work Phone: MCHC Auto (RBC) [Mass/Vol]on 07-12-2022 MCHC (RBC) [Mass/Vol] 34.0 g/dL 32-36 [facility] Work Phone: No Panel Informationon 07-12 Estimated Creatinine Clearance Calc 59.30 ml/min [facility] Work Phone: Estimated GFR (MDRD) Amer 85 mL/min >60 [facility] Work Phone: Comment on above: GFR Calc Estimated GFR (MDRD) Non-Af Amer 71 mL/min >60 [facility] Work Phone: Comment on above: Non- GFR Calc Platelets bldon 07-12-2022 Platelets (Bld) [#/Vol] 237 10*3/uL 150-450 [facility] Work Phone: Serum or plasma albumin dequan urement (mass/volume)on 07-12-2022 Albumin [Mass/Vol] 3.2 g/dL 3.2-5.0 [facility] Work Phone: Serum or plasma calcium dequan urement (mass/volume)on 07-12-2022 Calcium [Mass/Vol] 9.2 mg/dL 8.5-10.1 [facility] Work Phone: Serum or plasma creatinine m easurement (mass/volume)on 07-12-2022 Creatinine [Mass/Vol] 0.85 mg/dL 0.55-1.02 [facility] Work Phone: Comment on above: The validity of the calculated GFR & GFRAA in patients over 70 years has not been determined. Clinical correlation is essential. Serum or plasma urea nitroge n measurement (mass/volume)on 07-12-2022 Urea nitrogen [Mass/Vol] 15 mg/dL 7-18 [facility] Work Phone: Thin prep Papanicolaou smear with manual screeningon 07-12-2022 Thin prep Papanicolaou smear with manual screening 33 U/L 15-37 [facility] Work Phone: Thin prep Papanicolaou smear with manual screening 10 5-15 [facility] Work Phone: Absolute lymphocyte counton 07-11-2022 Lymphocytes Auto (Unsp spec) [#/Vol] 1.61 10*3/uL 0.83-4.51 [facility] Work Phone: Basophil percentageon 2021 Basophil percentage 0-5 SEEN /hpf 0-5 [facility] Work Phone: Basophils/100 WBC (Bld) 0.3 % 0-1 [facility] Work Phone: Bilirubin [Mass/Vol] 1.20 mg/dL 0.20-1.00 [facility] Work Phone: Comment on above: For patients on eltr ombopag therapy, use of Dimension [place] TBIL is not recommended. Chloride [Moles/Vol] 98 mmol/L 98-107 [facility] Work Phone: Eosinophils/100 WBC (Bld) 0.2 % 0-5 [facility] Work Phone: Glucose [Mass/Vol] 180 mg/dL 74-106 [facility] Work Phone: Comment on above: Fasting Glucose resu lt greater than or equal to 126 mg/dL suggests DIABETES MELLITUS per A.D.A. criteria. Neutrophils (Bld) [#/Vol] 15.8 10*3/uL 2.0-7.7 [facility] Work Phone: [phone] Neutrophils/100 WBC (Bld) 82.2 % 47-70 [facility] Work Phone: Potassium [Moles/Vol] 4.0 mmol/L 3.5-5.1 [facility] Work Phone: Protein [Mass/Vol] 7.3 g/dL 6.4-8.2 [facility] Work Phone: Sodium [Moles/Vol] 136 mmol/L 136-145 [facility] Work Phone: WBC (Bld) [#/Vol] 19.2 10*3/uL 4.4-11.0 [facility] Work Phone: Bilirubin Test strip Ql (U)o n 07-11-2022 Bilirubin Ql (U) Negative Negative [facility] Work Phone: Blood erythrocytes count (nu mber/volume)on 07-11-2022 RBC (Bld) [#/Vol] 4.60 10*6/uL 4.2-5.4 [facility] Work Phone: Blood hemoglobin measurement (mass/volume)on 07-11-2022 Hemoglobin (Bld) [Mass/Vol] 13.7 g/dL 12.0-15.0 [facility] Work Phone: Blood lymphocytes/100 leukoc yteson 07-11-2022 Lymphocytes/100 WBC (Bld) 8.4 % 19-41 [facility] Work Phone: Blood manual differential co mment interpretation (narrative result)on 07-11-2022 Manual differential comment Ananth (Bld) [Interp] SEE COMMENT [facility] Work Phone: Comment on above: MONOCYTOSIS NOTED Blood monocytes/100 leukocyt eson 07-11-2022 Monocytes/100 WBC (Bld) 8.3 % 0-10 [facility] Work Phone: Blood platelet adequacy dete ction by light microscopyon 07-11-2022 Platelets LM Ql (Bld) ADEQUATE ADEQ [facility] Work Phone: Blood platelet mean volumeon 07-11-2022 Platelet mean volume (Bld) [Entitic vol] 11.2 fL 6.2-12.0 [facility] Work Phone: Determination of erythrocyte mean corpuscular volume (MCV)on 07-11-2022 MCV (RBC) [Entitic vol] 87.8 fL 81-99 [facility] Work Phone: Hematocrit Auto (Bld) [Volum e fraction]on 07-11-2022 Hematocrit (Bld) [Volume fraction] 40.4 % 37-47 [facility] Work Phone: Ketones Test strip Ql (U)on 07-11-2022 Ketones Ql (U) 50 mg/dl Negative [facility] Work Phone: Laboratory - Chemistry and C hemistry - challengeon 07-11-2022 ALP [Catalytic activity/Vol] 181 U/L 45-117 [facility] Work Phone: ALT [Catalytic activity/Vol] 73 U/L 13-56 [facility] Work Phone: CO2 [Moles/Vol] 28.0 mmol/L 21.0-32.0 [facility] Work Phone: Globulin (S) [Mass/Vol] 3.9 g/dL 2.2-4.2 [facility] Work Phone: Lipase [Catalytic activity/Vol] 65 U/L 73-393 [facility] Work Phone: Urea nitrogen/Creatinine [Mass ratio] 25.0 mg/mg 10-20 [facility] Work Phone: Laboratory - Hematology and Cell countson 07-11-2022 Anisocytosis Ql (Bld) RARE [facility] Work Phone: Erythrocyte distribution width (RBC) [Entitic vol] 40.9 fL 35.1-43.9 [facility] Work Phone: Erythrocyte distribution width (RBC) [Ratio] 12.8 % 11.6-14.6 [facility] Work Phone: Immature granulocytes/100 WBC (Bld) 0.600 % 0.0-0.9 [facility] Work Phone: Comment on above: IG% - Immature Granu locytes (promyelocytes, myelocytes and metamyelocytes) > 1% indicates that a LEFT SHIFT is Present. MCH (RBC) [Entitic mass] 29.8 pg 27.0-32.0 [facility] Work Phone: Nucleated RBC/100 WBC (Bld) [Ratio] 0 % 0-5 [facility] Work Phone: MCHC Auto (RBC) [Mass/Vol]on 07-11-2022 MCHC (RBC) [Mass/Vol] 33.9 g/dL 32-36 [facility] Work Phone: Mucus LM Ql (Urine sed)on Mucus Ql (Urine sed) 0 SEEN /hpf [facility] Work Phone: Nitrite Test strip Ql (U)on 07-11-2022 Nitrite Ql (U) Negative Negative [facility] Work Phone: No Panel Informationon 07-11 Estimated Creatinine Clearance Calc 52.51 ml/min [facility] Work Phone: Estimated GFR (MDRD) Amer 74 mL/min >60 [facility] Work Phone: Comment on above: GFR Calc Estimated GFR (MDRD) Non-Af Amer 61 mL/min >60 [facility] Work Phone: Comment on above: Non- GFR Calc Platelets bldon 07-11-2022 Platelets (Bld) [#/Vol] 283 10*3/uL 150-450 [facility] Work Phone: Protein Test strip Ql (U)on 07-11-2022 Protein Ql (U) 15 mg/dl Negative [facility] Work Phone: RBC morphologyon 07-11-2022 RBC morphology finding Nom (Bld) N CHROM NORMAL NORM C&C [facility] Work Phone: Review by pathologiston Pathologist review Ananth (Unsp spec) [Interp] Reviewed [facility] Work Phone: Comment on above: Previous reported re sult: Aline mccormick Edited by: RGOFELICITY on 07/12/22:1506Neutrophilic leukocytosis.Clinical correlation necessary.Linden Urena M.D. 07/12/22 AMENDED REPORT 07/12/22 1506 PATH REV previously reported as: March foll Serum or plasma albumin dequan urement (mass/volume)on 07-11-2022 Albumin [Mass/Vol] 3.4 g/dL 3.2-5.0 [facility] Work Phone: Serum or plasma albumin/glob ulin mass ratioon 07-11-2022 Albumin/Globulin [Mass ratio] 0.9 {ratio} 0.9-2.4 [facility] Work Phone: Serum or plasma calcium dequan urement (mass/volume)on 07-11-2022 Calcium [Mass/Vol] 9.7 mg/dL 8.5-10.1 [facility] Work Phone: Serum or plasma creatinine m easurement (mass/volume)on 07-11-2022 Creatinine [Mass/Vol] 0.96 mg/dL 0.55-1.02 [facility] Work Phone: Comment on above: The validity of the calculated GFR & GFRAA in patients over 70 years has not been determined. Clinical correlation is essential. Serum or plasma urea nitroge n measurement (mass/volume)on 07-11-2022 Urea nitrogen [Mass/Vol] 24 mg/dL 7-18 [facility] Work Phone: Squamous epithelial cells de tection in urine sediment by light microscopyon 07-11-2022 Epithelial cells.squamous LM Ql (Urine sed) 0 SEEN /hpf 5-10 [facility] Work Phone: Thin prep Papanicolaou smear with manual screeningon 07-11-2022 Thin prep Papanicolaou smear with manual screening 53 U/L 15-37 [facility] Work Phone: Thin prep Papanicolaou smear with manual screening 10 5-15 [facility] Work Phone: Urine blood detectionon RBC Ql (U) Negative Negative [facility] Work Phone: RBC Ql (U) 0 SEEN /hpf 0-5 [facility] Work Phone: Urine clarityon 07-11-2022 Clarity (U) Clear Clear [facility] Work Phone: Urine color determinationon 07-11-2022 Color (U) Yellow Yellow [facility] Work Phone: Urine glucose detectionon Glucose Ql (U) Normal mg/dl Normal [facility] Work Phone: Urine leukocyte esterase det ection by dipstickon 07-11-2022 Leukocyte esterase Test strip Ql (U) 100 /ul Negative [facility] Work Phone: Urine pHon 07-11-2022 pH (U) 6.5 [pH] 5.0 - 8.0 [facility] Work Phone: Urine sediment bacteria coun t by microscopy (number/high power field)on 07-11-2022 Bacteria LM.HPF (Urine sed) [#/Area] 0 /[HPF] None Seen [facility] Work Phone: Urine sediment renal epithel ial cell count by microscopy (number/high power field)on 07-11-2022 Epithelial cells.renal LM.HPF (Urine sed) [#/Area] 0 /[HPF] 0-5 [facility] Work Phone: Urine specific gravity measu rementon 07-11-2022 Specific gravity (U) [Rel density] 1.010 1.002-1.030 [facility] Work Phone: Urobilinogen Auto test strip Ql (U)on 07-11-2022 Urobilinogen Ql (U) 1 mg/dl Normal [facility] Work Phone: .Auto Diffon 07-10-2022 Basophil, Absolute 0.0 10 3/mcL Normal 0.0-0.2 [facility] ([place]) Comment on above: Performed By: #### G AKUA TINOCO #### [place] [address] [address] Basophils/100 WBC (Bld) 0.1 % Normal 0.0-2.5 [facility] ([place]) Comment on above: Performed By: #### G , AKUA #### [address] [address] Eosinophil, Absolute 0.0 10 3/mcL Normal 0.0-0.4 [facility] ([place]) Comment on above: Performed By: #### G FR, BMP #### [address] [address] Eosinophils/100 WBC (Bld) 0.1 % Normal 0.0-7.0 [facility] ([place]) Comment on above: Performed By: #### G FR, BMP #### [address] [address] Lymphocyte, Absolute 1.5 10 3/mcL Normal 0.8-3.9 [facility] ([place]) Comment on above: Performed By: #### G FR, BMP #### [address] [address] Lymphocytes/100 WBC (Bld) 9.9 % Low 10.0-50.0 [facility] ([place]) Comment on above: Performed By: #### G FR, BMP #### [address] [address] Monocyte, Absolute 1.3 10 3/mcL High 0.2-1.0 [facility] ([place]) Comment on above: Performed By: #### G FR, BMP #### [address] [address] Monocytes/100 WBC (Bld) 8.6 % Normal 1.7-13.0 [facility] ([place]) Comment on above: Performed By: #### G FR, BMP #### [address] [address] Neutrophils/100 WBC (Bld) 81.3 % High 37.0-80.0 [facility] ([place]) Comment on above: Performed By: #### G FR, BMP #### [address] [address] .GFRon 07-10-2022 GFR Non- 51 ml/min/1.73sqm Normal [facility] ([place]) Comment on above: Result Comment: GFR Population [...] 15 mL/min/1.73 square meters Performed By: #### Hakan TINOCO, BMP #### [address] [address] GFR 62 ml/min/1.73sqm Normal [facility] ([place]) Comment on above: Result Comment: GFR Population [...] 15 mL/min/1.73 square meters Performed By: #### Hakan TINOCO, BMP #### [address] [address] .NEUABSon 07-10-2022 Neutrophil, Absolute 12.3 10 3/mcL High 2.9-6.2 A [facility] ([place]) Comment on above: Performed By: #### Hakan TINOCO, BMP #### [address] [address] BMPon 07-10-2022 BUN/Creatinine Ratio 25 ratio Normal 7-27 [facility] ([place]) Comment on above: Performed By: #### Hakan TINOCO, BMP #### [address] [address] Calcium [Mass/Vol] 8.9 mg/dL Normal 8.4-10.2 [facility] ([place]) Comment on above: Performed By: #### Hakan TINOCO, BMP #### [address] [address] Chloride [Moles/Vol] 98 mmol/L Normal 98-107 [facility] ([place]) Comment on above: Performed By: #### Hakan TINOCO, BMP #### [address] [address] CO2 [Moles/Vol] 31 mmol/L Normal 23-31 [facility] ([place]) Comment on above: Performed By: #### Hakan TINOCO, BMP #### [address] [address] Creatinine [Mass/Vol] 1.07 mg/dL High 0.55-1.02 [facility] ([place]) Comment on above: Performed By: #### Hakan TINOCO, BMP #### [address] [address] Electrolyte Balance 6.0 mEq/L Normal 4.0-15.0 [facility] ([place]) Comment on above: Performed By: #### Hakan TINOCO, BMP #### [address] [address] Glucose [Mass/Vol] 153 mg/dL High 80-115 [facility] ([place]) Comment on above: Performed By: #### Hakan TINOCO, BMP #### [address] [address] Potassium [Moles/Vol] 4.8 mmol/L Normal 3.5-5.1 [facility] ([place]) Comment on above: Performed By: #### Hakan TINOCO, BMP #### [address] [address] Sodium [Moles/Vol] 135 mmol/L Low 136-145 [facility] ([place]) Comment on above: Performed By: #### Hakan TINOCO, BMP #### [address] [address] Urea nitrogen [Mass/Vol] 27 mg/dL High 7-18 [facility] ([place]) Comment on above: Performed By: #### G , BMP #### [place] [address] [address] CBCon 07-10-2022 Erythrocyte distribution width (RBC) [Ratio] 13.4 % Normal 11.5-14.5 [facility] ([place]) Comment on above: Performed By: #### G , BMP #### [address] [address] Hematocrit (Bld) [Volume fraction] 35.0 % Low 37.0-47.0 [facility] ([place]) Comment on above: Performed By: #### G , BMP #### [address] [address] Hgb 12.0 G/dL Normal 12.0-16.0 [facility] ([place]) Comment on above: Performed By: #### G , BMP #### [address] [address] MCH (RBC) [Entitic mass] 29.5 pg Normal 27.0-31.2 [facility] ([place]) Comment on above: Performed By: #### Hakan TINOCO, BMP #### [address] [address] MCHC 34.2 G/dL Normal 33.0-37.0 [facility] ([place]) Comment on above: Performed By: #### G , BMP #### [address] [address] MCV (RBC) [Entitic vol] 86.3 fL Normal 80.0-94.0 [facility] ([place]) Comment on above: Performed By: #### G FR, BMP #### [place] [address] [address] Platelet 196 10 3/mcL Normal 130-400 [facility] ([place]) Comment on above: Performed By: #### Hakan TINOCO, BMP #### [facility] [address] [place], [place] [address] Platelet mean volume (Bld) [Entitic vol] 8.7 fL Normal 7.4-10.4 [facility] ([place]) Comment on above: Performed By: #### G , BMP #### [facility] [address] [place], [place] [address] RBC 4.05 10 6/mcL Low 4.20-5.40 [facility] ([place]) Comment on above: Performed By: #### G , BMP #### [place] [address] [place], [place] [address] WBC 15.1 10 3/mcL High 4.6-10.8 [facility] ([place]) Comment on above: Performed By: #### Hakan TINOCO, BMP #### [place] [address] [place], [place] [address] LABORATORYOrdered By: Jennifer Bardales on 07-10-2022 Basophil, [...] 07-09-2022 ABO/Rh Interp Negative Invalid Interpretation Code [facility] ([place]) Comment on above: Performed By: #### G , BMP #### [address] [place], [place] [address] Gel ABSon 07-09-2022 Antibody Screen Gel Negative Normal [facility] ([place]) Comment on above: Performed By: #### G , BMP #### [address] [address] LABORATORYOrdered By: Halima Oneal on 07-09-2022 ABO/Rh Interp Negative Invalid Interpretation Code AO BB SS Antibody Screen Gel Negative [facility] (07/09/22 6:43 AM) Invalid Interpretation Code AO BB SS XR FLUORO 1-2 HRS TECH TIMEo n 07-09-2022 XR FLUORO 1-2 HRS TECH TIME ORIGINAL Images acquired, not reported on this accession number. Normal [facility] ([place]) XR HIP RIGHT W/PELVIS 4 VIEW Son [...] Date: 07/09/2022 9:52:04 AM Ordering Provider: GABRIELA [facility]) .Auto Diffon 06-28-2022 Basophil, Absolute 0.1 10 3/mcL Normal 0.0-0.2 [facility]) Comment on above: Performed By: #### G FR, ANSG, ALB, ABOG, BMP #### [address] [address] Basophils/100 WBC (Bld) 0.7 % Normal 0.0-2.5 [facility]) Comment on above: Performed By: #### G FR, ANSG, ALB, ABOG, BMP #### [address] [address] Eosinophil, Absolute 0.2 10 3/mcL Normal 0.0-0.4 [facility] ([place]) Comment on above: Performed By: #### G FR, ANSG, ALB, ABOG, BMP #### [address] [address] Eosinophils/100 WBC (Bld) 1.7 % Normal 0.0-7.0 [facility] ([place]) Comment on above: Performed By: #### G FR, ANSG, ALB, ABOG, BMP #### [address] [address] Lymphocyte, Absolute 2.1 10 3/mcL Normal 0.8-3.9 [facility] ([place]) Comment on above: Performed By: #### G FR, ANSG, ALB, ABOG, BMP #### [address] [address] Lymphocytes/100 WBC (Bld) 22.7 % Normal 10.0-50.0 [facility] ([place]) Comment on above: Performed By: #### G FR, ANSG, ALB, ABOG, BMP #### [address] [address] Monocyte, Absolute 0.8 10 3/mcL Normal 0.2-1.0 [facility] ([place]) Comment on above: Performed By: #### G FR, ANSG, ALB, ABOG, BMP #### [address] [address] Monocytes/100 WBC (Bld) 8.4 % Normal 1.7-13.0 [facility] ([place]) Comment on above: Performed By: #### G FR, ANSG, ALB, ABOG, BMP #### [address] [address] Neutrophils/100 WBC (Bld) 66.5 % Normal 37.0-80.0 [facility] ([place]) Comment on above: Performed By: #### G FR, ANSG, ALB, ABOG, BMP #### [address] [address] .GFRon 06-28-2022 GFR 78 ml/min/1.73sqm Normal [facility] ([place]) Comment on above: Result Comment: [...] Performed By: #### G FR, BMP #### [address] [address] GFR Non- 65 ml/min/1.73sqm Normal [facility] ([place]) Comment on above: Result Comment: [...] Performed By: #### G FR, BMP #### [address] [address] .NEUABSon 06-28-2022 Neutrophil, Absolute 6.1 10 3/mcL Normal 2.9-6.2 [facility] ([place]) Comment on above: Performed By: #### G FR, ANSG, ALB, ABOG, BMP #### [address] [address] ALBon 06-28-2022 Albumin Level 3.8 G/dL Normal 3.4-4.8 [facility] ([place]) Comment on above: Performed By: #### G FR, ANSG, ALB, ABOG, BMP #### [address] [address] BMPon 06-28-2022 BUN/Creatinine Ratio 24 ratio Normal 7-27 [facility] ([place]) Comment on above: Performed By: #### G FR, ANSG, ALB, ABOG, BMP #### [address] [address] Calcium [Mass/Vol] 9.3 mg/dL Normal 8.4-10.2 [facility] ([place]) Comment on above: Performed By: #### G FR, ANSG, ALB, ABOG, BMP #### [address] [address] Chloride [Moles/Vol] 99 mmol/L Normal 98-107 [facility] ([place]) Comment on above: Performed By: #### G FR, ANSG, ALB, ABOG, BMP #### [address] [address] CO2 [Moles/Vol] 30 mmol/L Normal 23-31 [facility] ([place]) Comment on above: Performed By: #### G FR, ANSG, ALB, ABOG, BMP #### [address] [address] Creatinine [Mass/Vol] 0.87 mg/dL Normal 0.55-1.02 [facility] ([place]) Comment on above: Performed By: #### G FR, ANSG, ALB, ABOG, BMP #### [address] [address] Electrolyte Balance 9.0 mEq/L Normal 4.0-15.0 [facility] ([place]) Comment on above: Performed By: #### G FR, ANSG, ALB, ABOG, BMP #### [address] [address] Glucose [Mass/Vol] 200 mg/dL High 80-115 [facility] ([place]) Comment on above: Performed By: #### G FR, ANSG, ALB, ABOG, BMP #### [address] [address] Potassium [Moles/Vol] 4.0 mmol/L Normal 3.5-5.1 [facility] ([place]) Comment on above: Performed By: #### G FR, ANSG, ALB, ABOG, BMP #### [address] [address] Sodium [Moles/Vol] 138 mmol/L Normal 136-145 [facility] ([place]) Comment on above: Performed By: #### G FR, ANSG, ALB, ABOG, BMP #### [address] [address] Urea nitrogen [Mass/Vol] 21 mg/dL High 7-18 [facility] ([place]) Comment on above: Performed By: #### G FR, ANSG, ALB, ABOG, BMP #### [address] [address] CBCon 06-28-2022 Erythrocyte distribution width (RBC) [Ratio] 13.0 % Normal 11.5-14.5 [facility] ([place]) Comment on above: Order Comment: Pre-A dmission Testing Performed By: #### G FR, ANSG, ALB, ABOG, BMP #### [place] [address] Hematocrit (Bld) [Volume fraction] 40.2 % Normal 37.0-47.0 [facility] ([place]) Comment on above: Order Comment: Pre-A dmission Testing Performed By: #### G FR, ANSG, ALB, ABOG, BMP #### [place] [address] Hgb 14.0 G/dL Normal 12.0-16.0 [facility] ([place]) Comment on above: Order Comment: Pre-A dmission Testing Performed By: #### G FR, ANSG, ALB, ABOG, BMP #### [address] [place] [address] MCH (RBC) [Entitic mass] 29.8 pg Normal 27.0-31.2 [facility] ([place]) Comment on above: Order Comment: Pre-A dmission Testing Performed By: #### G FR, ANSG, ALB, ABOG, BMP #### [place] [address] MCHC 34.9 G/dL Normal 33.0-37.0 [facility] ([place]) Comment on above: Order Comment: Pre-A dmission Testing Performed By: #### G FR, ANSG, ALB, ABOG, BMP #### [place] [address] MCV (RBC) [Entitic vol] 85.4 fL Normal 80.0-94.0 [facility] ([place]) Comment on above: Order Comment: Pre-A dmission Testing Performed By: #### G FR, ANSG, ALB, ABOG, BMP #### [place] [address] Platelet 211 10 3/mcL Normal 130-400 [facility] ([place]) Comment on above: Order Comment: Pre-A dmission Testing Performed By: #### G FR, ANSG, ALB, ABOG, BMP #### [address] [address] Platelet mean volume (Bld) [Entitic vol] 9.0 fL Normal 7.4-10.4 [facility] ([place]) Comment on above: Order Comment: Pre-A dmission Testing Performed By: #### G FR, ANSG, ALB, ABOG, BMP #### [address] [address] RBC 4.71 10 6/mcL Normal 4.20-5.40 [facility] ([place]) Comment on above: Order Comment: Pre-A dmission Testing Performed By: #### G FR, ANSG, ALB, ABOG, BMP #### [address] [address] WBC 9.1 10 3/mcL Normal 4.6-10.8 [facility] ([place]) Comment on above: Order Comment: Pre-A dmission Testing Performed By: #### G FR, ANSG, ALB, ABOG, BMP #### [address] [address] Gel ABOon 06-28-2022 ABO/Rh Interp Negative Invalid Interpretation Code [facility] ([place]) Comment on above: Performed By: #### G FR, BMP #### [address] [address] Gel ABSon 06-28-2022 Antibody Screen Gel Negative Normal [facility] ([place]) Comment on above: Performed By: #### G FR, BMP #### [address] [address] LABORATORYOrdered By: Juan Harvey on 06-28-2022 ABO/Rh [...] CASE MANAGEMon 09-19-2021 CASE MANAGEM HNO ID: [id number] Author: Luis Brar RN Service: ? Author Type: Registered [...] Physician Name/Phone: King Mullen Other Caregiver Name/Phone: [facility] TRANSPORTATION ARRANGEMENTS: Transportation Arrangements: Car Patient is ready for discharge home. [facility] notified of discharge. COVID Kit requested. SIGNATURE: Luis Brar RN PATIENT NAME: Christina Macias DATE: September 19, 2021 TIME: 12:26 PM PAGER/CONTACT #: [phone] [facility] CASE MANAGEM HNO ID: [id number] Author: Luis Brar RN Service: ? Author Type: Registered [...] Hypertriglyceridemia Secondary Hypertension Attendees Present at Rounds: Levers Lace Machine Operator: Luis Nurse Web Production Assistant/Shipping Receiving Clerk Nurse Web Production Assistant: Merry Staff Nurse: Nalini Needs Discussed on [...] Goal Target Achievement Date: 09/19/21 DOCUMENTED BY: Luis Brar RN PATIENT NAME: Christina Macias DATE: September 19, 2021 TIME: 12:21 PM CSN: [id number] Normal [facility] CBC and Differentialon 09-19 Abs Baso 0.00 k/uL Normal <0.11 [facility] Abs [place]aran[place]ito 0.90 k/uL High <0.87 [facility] Abs Neut 5.71 k/uL Normal 1.45-7.50 [facility] ANC(includeSEG+BAND) 5.71 k/uL Normal [facility] Basophils/100 WBC (Bld) 0.0 % Normal [facility] DTYPE Manual Diff Normal [facility] Eosinophils (Bld) [#/Vol] 0.00 10*3/uL Normal <0.46 [facility] Eosinophils/100 WBC (Bld) 0.0 % Normal [facility] Erythrocyte distribution width (RBC) [Ratio] 11.9 % Normal 11.5-15.0 [facility] Hematocrit (Bld) [Volume fraction] 38.5 % Normal 36.0-46.0 [facility] Hemoglobin (Bld) [Mass/Vol] 13.3 g/dL Normal 11.5-15.5 [facility] Lymphocytes (Bld) [#/Vol] 1.55 10*3/uL Normal 1.00-4.00 [facility] Lymphocytes/100 WBC (Bld) 19.0 % Normal [facility] MCH 29.4 pG Normal 26.0-34.0 [facility] MCHC (RBC) [Mass/Vol] 34.5 g/dL Normal 30.5-36.0 [facility] MCV (RBC) [Entitic vol] 85.0 fL Normal 80.0-100.0 [facility] Monocytes/100 WBC (Bld) 11.0 % Normal [facility] Neutrophils/100 WBC (Bld) 70.0 % Normal [facility] Platelet Estimate Platelet estimate adequate Normal [facility] Platelet mean volume (Bld) [Entitic vol] 10.6 fL Normal 9.0-12.7 [facility] Platelets (Bld) [#/Vol] 241 10*3/uL Normal 150-400 [facility] RBC (Bld) [#/Vol] 4.53 10*6/uL Normal 3.90-5.20 [facility] Red Cell Morph SEE COMMENT Normal [facility] Comment on above: Result Comment: Norm al WBC (Bld) [#/Vol] 8.16 10*3/uL Normal 3.70-11.00 [facility] CNDSon 09-19-2021 CNDS HNO ID: [id number] Author: Melissa Nichols APRN.[facility] Service: Hospital Medicine Author Type: Nurse Practitioner Type: Discharge Summary Filed: 09/19/2021 11:17 AM Note Text: -- Attestation signed by Liliya Khan MD at 09/19/2021 11:24 AM I have reviewed pertinent vitals, labs, images and records and I agree with the findings and plan as documented. -- DISCHARGE SUMMARY PATIENT NAME: Christina Macias ADMISSION [...] with hypoxemia . You were admitted to [facility] due to productive cough, body aches, [...] Liliya Khan MD Attending: Ta Benitez MD [facility] medicine team: Melissa Nichols APRN, CNP Patient [...] Visiting Y (more content not included)... Normal [facility] Comp Metabolic Panelon 09-19 Albumin [Mass/Vol] 4.0 g/dL Normal 3.9-4.9 [facility] ALP [Catalytic activity/Vol] 81 U/L Normal 34-123 [facility] ALT [Catalytic activity/Vol] 32 U/L Normal 7-38 [facility] Anion gap [Moles/Vol] 11 mmol/L Normal 9-18 [facility] AST [Catalytic activity/Vol] 27 U/L Normal 13-35 [facility] Bilirubin [Mass/Vol] 0.8 mg/dL Normal 0.2-1.3 [facility] Calcium [Mass/Vol] 9.2 mg/dL Normal 8.5-10.2 [facility] Chloride [Moles/Vol] 96 mmol/L Low 97-105 [facility] CO2 [Moles/Vol] 27 mmol/L Normal 22-30 [facility] Creatinine [Mass/Vol] 0.72 mg/dL Normal 0.58-0.96 [facility] eGFR- Amer. >60 Normal [facility] eGFR-All Other Races >60 Normal [facility] Comment on above: Result Comment: eGFR [...] GFR. Glucose [Mass/Vol] 128 mg/dL High 74-99 [facility] Comment on above: Result Comment: The [place] Diabetes Association (ADA) provides guidance for cutoff [...] Standards of Medical Care in Diabetes 2016, [place] Diabetes Association. Diabetes Care. 2016.39(Suppl 1). Potassium [Moles/Vol] 3.7 mmol/L Normal 3.7-5.1 [facility] Protein [Mass/Vol] 7.2 g/dL Normal 6.3-8.0 [facility] Sodium [Moles/Vol] 134 mmol/L Low 136-144 [facility] Urea nitrogen [Mass/Vol] 19 mg/dL Normal 7-21 [facility] Magnesiumon 09-19-2021 Magnesium [Mass/Vol] 2.0 mg/dL Normal 1.7-2.3 [facility] ALLIED HEALTH 09-18-2021 ALLIED HEALTH HNO ID: [id number] Author: Angela Neff RN Service: Infection Prevention [...] 18, 2021 TIME: 1:18 PM PAGER/CONTACT #: [phone] Normal [facility] C-Reactive Protein 021 C-Reactive Protein 6.4 mg/dL High <0.9 [facility] CASE M[facility]IT [facility]: [id number] Author: MARIA VICTORIA Sheriff Service: Social Work Author Type: Jitterbug Operator Type: Care Mgt Initial Assessment Filed: 09/18/2021 11:52 AM Note Text: CARE MANAGEMENT: ASSESSMENT AND DISCHARGE PLAN SERVICE DATE: September 18, 2021 SERVICE TIME: 11:48 AM PRIMARY CARE PHYSICIAN: King Mullen MD ADMISSION STATUS: Observation Needs Prior to Discharge: Oxygen Set-up;Other: See Comment (COVID kit) MEDICAL: MMO SUPERMED PLUS 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 Last discharge within 30 days: No Advance Directive: Current Advance Directive: Health Care Power of Vice President Quality Improvement;Living Will In Chart: Yes Up To Date [...] None Has the Patient Been in a Halfway Facility in the Past 30 days?: No SOCIAL: Living Arrangements: Home Lives With: Spouse Financial Resources: Employed Primary Contact: Extended Emergency Contact Information Primary Emergency Contact: Jt Macias V Address: [address] [place] [address] [place] [address] [facility] Mobile Relation: Spouse Supportive Patient Contact:: Unable [...] Completely I feel financially burdened by my wig-ne-qucjhz expenses for my prescription medication:: 0 - Disagree Completely Risk Score: 0 Patient is categorized as: Low risk < 2 Are you interested in bedside delivery of your medications? No Is Patient Psychosocially Complex?: No ASSESSMENT AND PLAN: Medical Needs: Medical Needs: Two or more chronic diseases;Respiratory Insufficiency RT needs: Oxygen Psychosocial Needs: Psychosocial Needs: None FREEDOM OF CHOICE EXPLAINED: [place] of Choice Given: No Reason Not Given: [...] 18, 2021 TIME: 11:48 AM PAGER/CONTACT #: [phone] Normal [facility] CBC and Differentialon 09-18 Abs Baso <0.03 Normal <0.11 [facility] Abs [place] 0.71 k/uL Normal <0.87 [facility] Abs Neut 8.14 k/uL High 1.45-7.50 [facility] Absolute nRBC <0.01 Normal <0.01 [facility] Basophils/100 WBC (Bld) 0.2 % Normal [facility] DTYPE Auto Diff Normal [facility] Eosinophils (Bld) [#/Vol] 0.03 10*3/uL Normal <0.46 [facility] Eosinophils/100 WBC (Bld) 0.3 % Normal [facility] Erythrocyte distribution width (RBC) [Ratio] 11.9 % Normal 11.5-15.0 [facility] Hematocrit (Bld) [Volume fraction] 39.7 % Normal 36.0-46.0 [facility] Hemoglobin (Bld) [Mass/Vol] 14.0 g/dL Normal 11.5-15.5 [facility] Lymphocytes (Bld) [#/Vol] 0.95 10*3/uL Low 1.00-4.00 [facility] Lymphocytes/100 WBC (Bld) 9.6 % Normal [facility] MCH 29.9 pG Normal 26.0-34.0 [facility] MCHC (RBC) [Mass/Vol] 35.3 g/dL Normal 30.5-36.0 [facility] MCV (RBC) [Entitic vol] 84.8 fL Normal 80.0-100.0 [facility] Monocytes/100 WBC (Bld) 7.2 % Normal [facility] Neutrophils/100 WBC (Bld) 82.7 % Normal [facility] NRBCs 0.0 /100 WBC Normal 0 [facility] Platelet mean volume (Bld) [Entitic vol] 10.9 fL Normal 9.0-12.7 [facility] Platelets (Bld) [#/Vol] 228 10*3/uL Normal 150-400 [facility] RBC (Bld) [#/Vol] 4.68 10*6/uL Normal 3.90-5.20 [facility] WBC (Bld) [#/Vol] 9.85 10*3/uL Normal 3.70-11.00 [facility] Comp Metabolic Panelon 09-18 Albumin [Mass/Vol] 4.3 g/dL Normal 3.9-4.9 [facility] ALP [Catalytic activity/Vol] 90 U/L Normal 34-123 [facility] ALT [Catalytic activity/Vol] 34 U/L Normal 7-38 [facility] Anion gap [Moles/Vol] 16 mmol/L Normal 9-18 [facility] AST [Catalytic activity/Vol] 34 U/L Normal 13-35 [facility] Bilirubin [Mass/Vol] 0.9 mg/dL Normal 0.2-1.3 [facility] Calcium [Mass/Vol] 8.9 mg/dL Normal 8.5-10.2 [facility] Chloride [Moles/Vol] 91 mmol/L Low 97-105 [facility] CO2 [Moles/Vol] 26 mmol/L Normal 22-30 [facility] Creatinine [Mass/Vol] 0.83 mg/dL Normal 0.58-0.96 [facility] eGFR- Amer. >60 Normal [facility] eGFR-All Other Races >60 Normal [facility] Comment on above: Result Comment: eGFR [...] GFR. Glucose [Mass/Vol] 157 mg/dL High 74-99 [facility] Comment on above: Result Comment: The [place] Diabetes Association (ADA) provides guidance for cutoff [...] Standards of Medical Care in Diabetes 2016, [place] Diabetes Association. Diabetes Care. 2016.39(Suppl 1). Potassium [Moles/Vol] 3.0 mmol/L Low 3.7-5.1 [facility] Protein [Mass/Vol] 7.5 g/dL Normal 6.3-8.0 [facility] Sodium [Moles/Vol] 133 mmol/L Low 136-144 [facility] Urea nitrogen [Mass/Vol] 17 mg/dL Normal 7-21 [facility] D dimeron 09-18-2021 D dimer 480 ng/mL FEU Normal <500 [facility] Comment on above: Result Comment: 500 [...] M, et al. LATRICE 2014 [id number] and Van Jazmyne N, et al. Myriam Int Med 2016 165:253. ED NOTEon 09-18-2021 ED NOTE HNO ID: [id number] Author: Sathya Aldana RN Service: ? Author Type: Registered Nurse Type: ED Notes Filed: 09/18/2021 7:14 AM Note Text: Normal [facility] ED NOTE HNO ID: [id number] Author: Sathya Aldana RN Service: ? Author Type: Registered Nurse Type: ED Notes Filed: 09/18/2021 7:14 AM Note Text: Pt has stated that she is too weak to get out of the bed and walk/march in place for the pulse oximetry. [facility] ED NOTE HNO ID: [id number] Author: Sathya Aldana RN Service: ? Author Type: Registered Nurse Type: ED Notes Filed: 09/18/2021 6:49 AM Note Text: Attempt made to obtain a walking pulse ox from this pt, after explanation of the procedure, pt has stated that there is no way that I can do that, sorry. [facility] ED PROV NOTEon 09-18-2021 ED PROV NOTE HNO ID: [id number] Author: Jeffrey Oquendo DO Service: Emergency Medicine [...] CHOLEYCYSTECTOMY 09/2009 - PAST SURGICAL HISTORY OF [id number] bilat knee arthroscopic - REMOVE TONSILS/ADENOIDS,<12 Y/O [...] of ordinary. Hematological: Does not bruise/bleed easily. Psychiatric/Behavioral: Negative for agitation, behavioral problems, confusion, self-injury [...] is no (more content not included)... Normal [facility] HISTORY PHYSICALon HISTORY PHYSICAL HNO ID: [id number] Author: Nery Mcclure APRN.[employer] Service: Hospital Medicine Author Type: Nurse Practitioner Type: HANDP Filed: 09/18/2021 10:50 AM Note Text: DEPARTMENT OF HOSPITAL MEDICINE HISTORY AND PHYSICAL EXAM SERVICE DATE: 09/18/2021 Code Status: Not on file SERVICE TIME: 8:53 AM Primary Care Physician: King Mullen MD NIGHT AND WEEKEND COVERAGE: [place] COVERAGE: Days: [phone], please contact via [facility] [employer]akes[employer] Nights: [phone], please page [facility] Hospitalist Night coverage pager [phone] Subjective CHIEF COMPLAINT: Covid +, didn't feel [...] CHOLEYCYSTECTOMY 09/2009 - PAST SURGICAL HISTORY OF [id number] bilat knee arthroscopic - REMOVE TONSILS/ADENOIDS,<12 Y/O [...] Arrival: Borderline prolonged QTc COVID 19 Result CULLET TRUCKER Date Value Ref Range Status 09/11/2021 (A) Negative for COVID19 (SARS CoV2) by RT-PCR or equivalent method. Final Positive for COVID19 (SARS CoV2) by RT-PCR or eq (more content not included)... Normal [facility] High Sens Troponin Ton 09-18 High Sensitivity NAVEEN 7 ng/L Normal <12 [facility] NT Pro BNPon 09-18-2021 PRO B Natr Peptide 108 pg/mL Normal <125 [facility] Procalcitoninon 09-18-2021 Procalcitonin 0.06 ng/mL Normal <0.09 [facility] Comment on above: Result Comment: For a guided interpretation of test results, please visit the Change in Procalcitonin Calculator, [email or web address]. Performed By: #### P ROCAL ####[facility] [place], [place] [id number] XR CHEST 1V FRONTAL PORTon 1 11-18-2020 [...] concerning for an infectious process, possibly viral. Grab Hooker: PSCB Transcribe Date/Time: Sep 18 2021 6:02A Dictated by : LAUREN GUIDO MD This examination was interpreted and the report reviewed and electronically signed by: LAUREN GUIDO MD on Sep 18 2021 6:04AM EST [id number] Normal [facility] CBC and Differentialon 09-11 Abs Baso <0.03 Normal <0.11 [facility] Abs [place] 0.79 k/uL Normal <0.87 [facility] Abs Neut 6.03 k/uL Normal 1.45-7.50 [facility] Absolute nRBC <0.01 Normal <0.01 [facility] Basophils/100 WBC (Bld) 0.2 % Normal [facility] DTYPE Auto Diff Normal [facility] Eosinophils (Bld) [#/Vol] 0.05 10*3/uL Normal <0.46 [facility] Eosinophils/100 WBC (Bld) 0.6 % Normal [facility] Erythrocyte distribution width (RBC) [Ratio] 12.3 % Normal 11.5-15.0 [facility] Hematocrit (Bld) [Volume fraction] 41.6 % Normal 36.0-46.0 [facility] Hemoglobin (Bld) [Mass/Vol] 14.4 g/dL Normal 11.5-15.5 [facility] Lymphocytes (Bld) [#/Vol] 1.49 10*3/uL Normal 1.00-4.00 [facility] Lymphocytes/100 WBC (Bld) 17.8 % Normal [facility] MCH 29.9 pG Normal 26.0-34.0 [facility] MCHC (RBC) [Mass/Vol] 34.6 g/dL Normal 30.5-36.0 [facility] MCV (RBC) [Entitic vol] 86.5 fL Normal 80.0-100.0 [facility] Monocytes/100 WBC (Bld) 9.4 % Normal [facility] Neutrophils/100 WBC (Bld) 72.0 % Normal [facility] NRBCs 0.0 /100 WBC Normal 0 [facility] Platelet mean volume (Bld) [Entitic vol] 10.9 fL Normal 9.0-12.7 [facility] Platelets (Bld) [#/Vol] 182 10*3/uL Normal 150-400 [facility] RBC (Bld) [#/Vol] 4.81 10*6/uL Normal 3.90-5.20 [facility] WBC (Bld) [#/Vol] 8.38 10*3/uL Normal 3.70-11.00 [facility] Comp Metabolic Panelon 09-11 Albumin [Mass/Vol] 4.5 g/dL Normal 3.9-4.9 [facility] ALP [Catalytic activity/Vol] 89 U/L Normal 34-123 [facility] ALT [Catalytic activity/Vol] 43 U/L High 7-38 [facility] Anion gap [Moles/Vol] 14 mmol/L Normal 9-18 [facility] AST [Catalytic activity/Vol] 38 U/L High 13-35 [facility] Bilirubin [Mass/Vol] 0.8 mg/dL Normal 0.2-1.3 [facility] Calcium [Mass/Vol] 9.0 mg/dL Normal 8.5-10.2 [facility] Chloride [Moles/Vol] 95 mmol/L Low 97-105 [facility] CO2 [Moles/Vol] 24 mmol/L Normal 22-30 [facility] Creatinine [Mass/Vol] 0.81 mg/dL Normal 0.58-0.96 [facility] eGFR- Amer. >60 Normal [facility] eGFR-All Other Races >60 Normal [facility] Comment on above: Result Comment: eGFR [...] GFR. Glucose [Mass/Vol] 117 mg/dL High 74-99 [facility] Comment on above: Result Comment: The [place] Diabetes Association (ADA) provides guidance for cutoff [...] Standards of Medical Care in Diabetes 2016, [place] Diabetes Association. Diabetes Care. 2016.39(Suppl 1). Potassium [Moles/Vol] 3.4 mmol/L Low 3.7-5.1 [facility] Protein [Mass/Vol] 7.5 g/dL Normal 6.3-8.0 [facility] Sodium [Moles/Vol] 133 mmol/L Low 136-144 [facility] Urea nitrogen [Mass/Vol] 22 mg/dL High 7-21 [facility] ED NOTEon 09-11-2021 ED NOTE HNO ID: [id number] Author: Tyra Nugent RN Service: ? Author Type: Registered Nurse Type: ED Notes Filed: 09/11/2021 11:16 AM Note Text: Discharge instructions reviewed w/ pt- see AVS; pt up ad gillian, able to dress self and walk w/ steady gait; family present to drive pt home; Pt knows to return to ED w/ worsening s/s. [facility] ED NOTE HNO ID: [id number] Author: Tyra Nugent RN Service: ? Author Type: Registered Nurse Type: ED Notes Filed: 09/11/2021 9:48 AM Note Text: covid swab obtained and sent to lab. [facility] ED NOTE HNO ID: [id number] Author: Jann Malik RN Service: ? Author Type: Registered Nurse Type: ED Notes Filed: 09/11/2021 9:22 AM Note Text: Patient presents to ed with diarrhea, body aches, and sinus pressure and spouse is sick with same symptoms. [facility] ED PROV NOTEon 09-11-2021 ED PROV NOTE HNO ID: [id number] Author: Alexander Garcia PA-C Service: ? Author Type: Physician Shipping Receiving Clerk Type: ED Provider Notes Filed: 09/11/2021 11:57 [...] CHOLEYCYSTECTOMY 09/2009 - PAST SURGICAL HISTORY OF [id number] bilat knee arthroscopic - REMOVE TONSILS/ADENOIDS,<12 Y/O [...] 0920 09/11/21 0920 09/11/21 0920 09/11/21 0920 117/68 75 36.6 ?C (97.9 ?F) Oral [...] type Body aches COVID-19 test performed per [facility] [place] policy for suspected COVID community exposure. MDM [...] : Patie (more content not included)... Normal [facility] Expedited [id number] 09-11-20 21 SARS-CoV-2 (COVID-19) RNA LUDIVINA+probe Ql (Unsp spec) UPPER RESPIRATORY TRACT SWAB Normal [facility] SARS-CoV-2 (COVID-19) RNA LUDIVINA+probe Ql (Unsp spec) Positive for COVID19 (SARS CoV2) by RT-PCR or equivalent method. Critically abnormal Negative for COVID19 (SARS CoV2) by RT-PCR or equivalent method. [facility] Comment on above: Result Comment: If y our test results are positive, you have tested positive for the presence of the virus associated with COVID-19. This is a stressful time and if you are a [facility] patient, we will support you by closely monitoring your symptoms and providing supportive resources that can ease your recovery. Our team will call you regularly and have you enter your symptoms in MyChart, so that we can provide the best care possible. This test has been authorized by FDA under an Emergency Use Authorization (EUA). Urinalysis with Microscopico n 09-11-2021 Bilirubin, Urine Negative Normal Negative [facility] Cast SEE COMMENT Normal 0 [facility] Comment on above: Result Comment: 0 Clarity (U) Clear Normal Clear [facility] Color (U) Yellow Normal Yellow [facility] Epithelial cells LM Ql (Urine sed) SEE COMMENT Normal [facility] Comment on above: Result Comment: Rare Squamous Epithelial Cells Glucose Ql (U) Negative Normal Negative [facility] Hemoglobin/Blood,Ur Negative Normal Negative [facility] Ketones Ql (U) 1+ Critically abnormal Negative [facility] Leukest 1+ Critically abnormal Negative [facility] Nitrite Ql (U) Negative Normal Negative [facility] pH (U) 6.0 [pH] Normal 5.0-8.0 [facility] Protein, Urine Negative Normal Negative [facility] RBC 0-3 Normal 0-3 [facility] Specific [place], Ur 1.021 Normal 1.005-1.030 [facility] Urobilinogen Qn (U) 0.2 {Dianne'U}/dL Normal 0.2-1.0 [facility] WBC 6-10 Critically abnormal 0-5 [facility] Basic Metabolic Panlon 03-06 Anion gap molar conc 5 mmol/L Low 9-18 [facility] Comment on above: Performed By: #### C BCDIF, LIPA, PT, PTT, CMP #### [facility] [address] [place] [address] Calcium mass conc 8.6 mg/dL Normal 8.5-10.2 [facility] Comment on above: Performed By: #### C BCDIF, LIPA, PT, PTT, CMP #### [facility] [address] [address] Chloride molar conc 106 mmol/L High 97-105 [facility] Comment on above: Performed By: #### C BCDIF, LIPA, PT, PTT, CMP #### [facility] [address] [place] [address] CO2 molar conc 31 mmol/L High 22-30 [facility] Comment on above: Performed By: #### C BCDIF, LIPA, PT, PTT, CMP #### [facility] [address] [address] Creatinine mass conc 0.76 mg/dL Normal 0.58-0.96 [facility] Comment on above: Performed By: #### C BCDIF, LIPA, PT, PTT, CMP #### [facility] [address] [facility] [phone] eGFR- Amer. >60 Normal [facility] Comment on above: Performed By: #### C BCDIF, LIPA, PT, PTT, CMP #### [facility] [address] [facility] [phone] GFR/1.73 sq M predicted among non-blacks MDRD vol rate/area (S/P/Bld) mL/min/{1.73_m2} Normal [facility] Comment on above: Result Comment: eGFR [...] C BCDIF, LIPA, PT, PTT, CMP #### [facility] [address] [facility] [phone] Glucose mass conc 117 mg/dL High 74-99 [facility] Comment on above: Result Comment: The [place] Diabetes [employer] (ADA) provides guidance for cutoff [...] Standards of Medical Care in Diabetes 2016, [place] [employer]. Diabetes Care. 2016.39(Suppl 1). Performed By: #### C BCDIF, LIPA, PT, PTT, CMP #### [facility] [address] [phone] Potassium molar conc 4.8 mmol/L Normal 3.7-5.1 [facility] Comment on above: Performed By: #### C BCDIF, LIPA, PT, PTT, CMP #### [facility] [address] [phone] Sodium molar conc 142 mmol/L Normal 136-144 [facility] Comment on above: Performed By: #### C BCDIF, LIPA, PT, PTT, CMP #### [facility] [address] [phone] Urea nitrogen mass conc 13 mg/dL Normal 7-21 [facility] Comment on above: Performed By: #### C BCDIF, LIPA, PT, PTT, CMP #### [facility] [address] [place] [address] C difficile PCRon 03-06-2019 C difficile PCR Negative Normal [facility] Comment on above: Performed By: #### C BCDIF, LIPA, PT, PTT, CMP #### [facility] [address] [phone] CBCon 03-06-2019 Erythrocyte distribution width Ratio (RBC) 12.8 % Normal 11.5-15.0 [facility] Comment on above: Performed By: #### C BCDIF, LIPA, PT, PTT, CMP #### [facility] [address] [place] [address] Hematocrit Volume Fraction (Bld) 40.6 % Normal 36.0-46.0 [facility] Comment on above: Performed By: #### C BCDIF, LIPA, PT, PTT, CMP #### [facility] [address] [place], [place] [phone] Hemoglobin mass conc (Bld) 13.1 g/dL Normal 11.5-15.5 [facility] Comment on above: Performed By: #### C BCDIF, LIPA, PT, PTT, CMP #### [facility] [address] [phone] MCH Entitic mass (RBC) 28.9 pG Normal 26.0-34.0 [facility] Comment on above: Performed By: #### C BCDIF, LIPA, PT, PTT, CMP #### [facility] [address] [address] MCHC mass conc (RBC) 32.3 g/dL Normal 30.5-36.0 [facility] Comment on above: Performed By: #### C BCDIF, LIPA, PT, PTT, CMP #### [facility] [address] [place] [address] MCV Entitic volume (RBC) 89.6 fL Normal 80.0-100.0 [facility] Comment on above: Performed By: #### C BCDIF, LIPA, PT, PTT, CMP #### [facility] [address] [place] [address] Platelet mean volume Entitic volume (Bld) 10.7 fL Normal 9.0-12.7 [facility] Comment on above: Performed By: #### C BCDIF, LIPA, PT, PTT, CMP #### [facility] [address] [place] [address] Platelets #/vol (Bld) 172 10*3/uL Normal 150-400 [facility] Comment on above: Performed By: #### C BCDIF, LIPA, PT, PTT, CMP #### [facility] [address] [place] [address] RBC #/vol (Bld) 4.53 10*6/uL Normal 3.90-5.20 [facility] Comment on above: Performed By: #### C BCDIF, LIPA, PT, PTT, CMP #### [facility] [address] [place] [address] WBC #/vol (Bld) 6.37 10*3/uL Normal 3.70-11.00 [facility] Comment on above: Performed By: #### C BCDIF, LIPA, PT, PTT, CMP #### [facility] [address] [place] [address] CNCOon 03-06-2019 CNCO Letter Text Normal [facility] CONSULT PROGon 03-06-2019 Protein mass conc HNO ID: [id number] Author: Kiarra Nugent Service: Gastroenterology Author Type: [...] CBC, Coags, BMP, Mg, Phos Recent Labs 03/06/19 0519 03/05/19 0800 WBC 6.37 12.46* HB [...] biopsies: Unremarkable colonic mucosa. SIGNATURE: Britt Dorman APRN.[employer]ER DATE: March 06, 2019 TIME: 9:16 AM Pt much improved. No diarrhea No rectal bleeding Pt felt to have diverticulitis; much improved on IV antibiotics Change to po antibiotics and dc Normal [facility] Enteric Bact Pnl PCRon 03-06 Campy jejun/coli DNA Not Detected Normal [facility] Comment on above: Performed By: #### C BCDIF, LIPA, PT, PTT, CMP #### [facility] [address] [place], [place] [phone] Salmonella spp. DNA Not Detected Normal [facility] Comment on above: Performed By: #### C BCDIF, LIPA, PT, PTT, CMP #### [facility] [address] Shiga toxin gene(s) Not Detected Normal [facility] Comment on above: Performed By: #### C BCDIF, LIPA, PT, PTT, CMP #### [facility] [address] [place], [place] [phone] Shigella/EIEC DNA Not Detected Normal [facility] Comment on above: Performed By: #### C BCDIF, LIPA, PT, PTT, CMP #### [facility] [address] [facility] [phone] Fecal Lactoferrinon 03-06-20 19 Fecal Lactoferrin Sp. Request/Comment: - Specimen received in sterile container. Test Result - Positive for lactoferrin, which may indicate presence of fecal white blood cells Critically abnormal [facility] Comment on above: Performed By: #### C BCDIF, LIPA, PT, PTT, CMP #### [facility] [address] [facility] [phone] Ova and Parasite Scron 03-06 Ova and Parasite Scr Sp. Request/Comment : - Specimen received in Ova and Parasite Kit. Culture Result - Negative for Giardia lamblia and Cryptosporidium species by EIA. Normal [facility] Comment on above: Performed By: #### C BCDIF, LIPA, PT, PTT, CMP #### [facility] [address] [facility] [phone] PLAN OF CAREon 03-06-2019 PLAN OF CARE HNO ID: [id number] Author: Lolita Watson Service: Hospital Medicine Author Type: Physician Type: Plan of Care Filed: 03/06/2019 6:18 AM Note Text: 1-2 tablets of Fioricet x1 given for headache likely related to caffeine withdrawal. Lolita Watson MD [facility] APTTon 03-05-2019 aPTT Coag time (Bld) 27.6 s Normal 23.0-32.4 [facility] Comment on above: Result Comment: Unfr actionated [...] laboratory APTT reagent in use throughout the [facility]. Performed By: #### C BCDIF, LIPA, PT, PTT, CMP #### [facility] [address] [facility] [phone] CBC and Differentialon 03-05 Abs Baso 0.03 k/uL Normal <0.11 [facility] Comment on above: Performed By: #### C BCDIF, LIPA, PT, PTT, CMP #### [facility] [address] [place] [address] Abs [place] 0.83 k/uL Normal <0.87 [facility] Comment on above: Performed By: #### C BCDIF, LIPA, PT, PTT, CMP #### [facility] [address] [place] [address] Abs Neut 9.84 k/uL High 1.45-7.50 [facility] Comment on above: Performed By: #### C BCDIF, LIPA, PT, PTT, CMP #### [facility] [address] [place] [address] Basophils/100 WBC (Bld) 0.2 % Normal [facility] Comment on above: Performed By: #### C BCDIF, LIPA, PT, PTT, CMP #### [facility] [address] [place] [address] Eosinophils #/vol (Bld) 0.15 10*3/uL Normal <0.46 [facility] Comment on above: Performed By: #### C BCDIF, LIPA, PT, PTT, CMP #### [facility] [address] [place] [address] Eosinophils/100 WBC (Bld) 1.2 % Normal [facility] Comment on above: Performed By: #### C BCDIF, LIPA, PT, PTT, CMP #### [facility] [address] [place] [address] Erythrocyte distribution width Ratio (RBC) 12.9 % Normal 11.5-15.0 [facility] Comment on above: Performed By: #### C BCDIF, LIPA, PT, PTT, CMP #### [facility] [address] [place] [address] Hematocrit Volume Fraction (Bld) 43.6 % Normal 36.0-46.0 [facility] Comment on above: Performed By: #### C BCDIF, LIPA, PT, PTT, CMP #### [facility] [address] [place] [address] Hemoglobin mass conc (Bld) 14.7 g/dL Normal 11.5-15.5 [facility] Comment on above: Performed By: #### C BCDIF, LIPA, PT, PTT, CMP #### [facility] [address] [place] [address] Lymphocytes #/vol (Bld) 1.61 10*3/uL Normal 1.00-4.00 [facility] Comment on above: Performed By: #### C BCDIF, LIPA, PT, PTT, CMP #### [facility] [address] [place] [address] Lymphocytes/100 WBC (Bld) 12.9 % Normal [facility] Comment on above: Performed By: #### C BCDIF, LIPA, PT, PTT, CMP #### [facility] [address] [place] [address] MCH Entitic mass (RBC) 29.2 pG Normal 26.0-34.0 [facility] Comment on above: Performed By: #### C BCDIF, LIPA, PT, PTT, CMP #### [facility] [address] [place] [address] MCHC mass conc (RBC) 33.7 g/dL Normal 30.5-36.0 [facility] Comment on above: Performed By: #### C BCDIF, LIPA, PT, PTT, CMP #### [facility] [address] [place] [address] MCV Entitic volume (RBC) 86.7 fL Normal 80.0-100.0 [facility] Comment on above: Performed By: #### C BCDIF, LIPA, PT, PTT, CMP #### [facility] [address] [place], [place] [phone] Monocytes/100 WBC (Bld) 6.7 % Normal [facility] Comment on above: Performed By: #### C BCDIF, LIPA, PT, PTT, CMP #### [facility] [address] [place], [place] [phone] Neutrophils/100 WBC (Bld) 79.0 % Normal [facility] Comment on above: Performed By: #### C BCDIF, LIPA, PT, PTT, CMP #### [facility] [address] [place], [place] [phone] Platelet mean volume Entitic volume (Bld) 11.1 fL Normal 9.0-12.7 [facility] Comment on above: Performed By: #### C BCDIF, LIPA, PT, PTT, CMP #### [facility] [address] [address] Platelets #/vol (Bld) 226 10*3/uL Normal 150-400 [facility] Comment on above: Performed By: #### C BCDIF, LIPA, PT, PTT, CMP #### [facility] [address] [address] RBC #/vol (Bld) 5.03 10*6/uL Normal 3.90-5.20 [facility] Comment on above: Performed By: #### C BCDIF, LIPA, PT, PTT, CMP #### [facility] [address] [address] WBC #/vol (Bld) 12.46 10*3/uL High 3.70-11.00 [facility] Comment on above: Performed By: #### C BCDIF, LIPA, PT, PTT, CMP #### [facility] [address] [address] CONSULTon 03-05-2019 CONSULT HNO ID: [id number] Author: Kiarra Nugent Service: Gastroenterology Author Type: [...] ~ 5 years ago who presents to [facility] on 03/05/19 due to the onset of [...] Cooperative. NAD EYES: No scleral icterus SKIN: Normangee in color. No jaundice LUNGS: Clear to [...] to follow with you. SIGNATURE: Britt Dorman APRN.[employer] DATE: March 05, 2019 TIME: 11:02 AM Pt with clinical picture most consistent with diverticulitis. Must consider colitis, given diarrhea. Will treat as above and order stool studies to r/o infectious colitis. Normal [facility] CT ABD/PEL W IVCONon 019 CT [...] thorax: Clear IMPRESSION: Suspected diverticulitis as described Grab Hooker: ASHOK Transcribe Date/Time: Mar 05 2019 9:47A Dictated by : RICARDO BARRIOS MD This examination was interpreted and the report reviewed and electronically signed by: RICARDO BARRIOS MD on Mar 05 2019 9:54AM EST [id number] Normal [facility] Comp Metabolic Panelon 03-05 Albumin mass conc 4.3 g/dL Normal 3.9-4.9 [facility] Comment on above: Performed By: #### C BCDIF, LIPA, PT, PTT, CMP #### [facility] [address] ALP enzyme act/vol 103 U/L Normal 34-123 [facility] Comment on above: Performed By: #### C BCDIF, LIPA, PT, PTT, CMP #### [facility] [address] ALT enzyme act/vol 30 U/L Normal 7-38 [facility] Comment on above: Performed By: #### C BCDIF, LIPA, PT, PTT, CMP #### [facility] [address] Anion gap molar conc 11 mmol/L Normal 9-18 [facility] Comment on above: Performed By: #### C BCDIF, LIPA, PT, PTT, CMP #### [facility] [address] AST enzyme act/vol 25 U/L Normal 13-35 [facility] Comment on above: Performed By: #### C BCDIF, LIPA, PT, PTT, CMP #### [facility] [address] [address] Bilirubin mass conc 1.1 mg/dL Normal 0.2-1.3 [facility] Comment on above: Performed By: #### C BCDIF, LIPA, PT, PTT, CMP #### [facility] [address] Calcium mass conc 9.3 mg/dL Normal 8.5-10.2 [facility] Comment on above: Performed By: #### C BCDIF, LIPA, PT, PTT, CMP #### [facility] [address] [place] [address] Chloride molar conc 101 mmol/L Normal 97-105 [facility] Comment on above: Performed By: #### C BCDIF, LIPA, PT, PTT, CMP #### [facility] [address] [place] [address] CO2 molar conc 27 mmol/L Normal 22-30 [facility] Comment on above: Performed By: #### C BCDIF, LIPA, PT, PTT, CMP #### [facility] [address] [place] [address] Creatinine mass conc 0.63 mg/dL Normal 0.58-0.96 [facility] Comment on above: Performed By: #### C BCDIF, LIPA, PT, PTT, CMP #### [facility] [address] [address] eGFR- Amer. >60 Normal [facility] Comment on above: Performed By: #### C BCDIF, LIPA, PT, PTT, CMP #### [facility] [address] [place], [place] [phone] GFR/1.73 sq M predicted among non-blacks MDRD vol rate/area (S/P/Bld) mL/min/{1.73_m2} Normal [facility] Comment on above: Result Comment: eGFR [...] C BCDIF, LIPA, PT, PTT, CMP #### [facility] [address] [place] [address] Glucose mass conc 135 mg/dL High 74-99 [facility] Comment on above: Result Comment: The [place] Diabetes [employer] (ADA) provides guidance for cutoff [...] Standards of Medical Care in Diabetes 2016, [place] [employer]. Diabetes Care. 2016.39(Suppl 1). Performed By: #### C BCDIF, LIPA, PT, PTT, CMP #### [facility] [address] [place] [address] Potassium molar conc 4.1 mmol/L Normal 3.7-5.1 [facility] Comment on above: Performed By: #### C BCDIF, LIPA, PT, PTT, CMP #### [facility] [address] [place], [place] [phone] Protein mass conc 7.3 g/dL Normal 6.3-8.0 [facility] Comment on above: Performed By: #### C BCDIF, LIPA, PT, PTT, CMP #### [facility] [address] [place], [place] [phone] Sodium molar conc 139 mmol/L Normal 136-144 [facility] Comment on above: Performed By: #### C BCDIF, LIPA, PT, PTT, CMP #### [facility] [address] [facility] [phone] Urea nitrogen mass conc 20 mg/dL Normal 7-21 [facility] Comment on above: Performed By: #### C BCDIF, LIPA, PT, PTT, CMP #### [facility] [address] [facility] [phone] ED NOTEon 03-05-2019 ED NOTE HNO ID: [id number] Author: Evelyn (Rn) JAYDEN Carter Service: ? Author Type: Registered Nurse Type: ED Notes Filed: 03/05/2019 11:16 AM Note Text: Report called to [facility] on 4S. Bed is ready [facility] ED NOTE HNO ID: [id number] Author: Evelyn (Rn) JAYDEN Carter Service: ? Author Type: Registered Nurse Type: ED Notes Filed: 03/05/2019 11:15 AM Note Text: States pain is much better. [facility] ED NOTE HNO ID: [id number] Author: Bishop Fowler MD Service: ? Author Type: Physician Type: ED Notes Filed: 03/05/2019 8:19 AM Note Text: Attending Note I have personally performed a face to face assessment of the patient and have reviewed the PA/FORECLOSURE HOME INSPECTOR note. My kwon findings include: History - [...] Fowler MD Date: 03/05/2019 Time: 8:17 AM [facility] ED NOTE HNO ID: [id number] Author: Evelyn GilliamRn) JAYDEN Carter Service: ? Author Type: Registered Nurse Type: ED Notes Filed: 03/05/2019 8:32 AM Note Text: Plan of care -Monitor Patient's Vital Signs for changes in condition -Monitor patient for changes in pain -Maintain patient safety and privacy -Provide comfort measures-Call light in place -Bed in locked and low position [facility] ED NOTE HNO ID: [id number] Author: Evelyn GilliamRn) JAYDEN Carter Service: ? Author Type: Registered Nurse Type: ED Notes Filed: 03/05/2019 7:51 AM Note Text: Started with abd pain and vomiting last night. Continues with bloody diarrhea and abd pain today. [facility] ED PROV NOTEon 03-05-2019 Protein mass conc HNO ID: [id number] Author: Bishop Fowler MD Service: General Surgery Author Type: Physician Type: ED Provider Notes Filed: 03/05/2019 10:09 AM Note Text: ED Provider Note Patient Name: Christina Macias SERVICE DATE: 03/05/19 History Patient presents with: Abdominal Pain Diarrhea: Diarrhea is bloody HPI: Mrs Christina Macias is a 63yo female with PMH of diverticulosis/diverticuli tis and HTN, who presents to the ED [...] CHOLEYCYSTECTOMY 09/2009 - PAST SURGICAL HISTORY OF 0437-7334 bilat knee arthroscopic - REMOVE TONSILS/ADENOIDS,<12 Y/O [...] speech difficulty, weakness, light-headedness, numbness and headaches. Psychiatric/Behavioral: Negative for hallucinations and suicidal ideas. : [...] 4quadrants, TTP in RLQ and LLQ, no hepatomegaly/organomegaly appreciated Diagnostic Testing ED Labs Ordered and Reviewed - No data to display Procedures: CT scan w/o contrast CBC CMP UA ED Course / Clinical Impression Clinical Impressions as of Mar 05 1009 Diverticulitis MDM / Disposition / Plan MDM [...] AM Bishop Fowler MD 03/05/19 1009 [facility] HISTORY PHYSICALon 9 HISTORY PHYSICAL HNO ID: [id number] Author: Saba Coburn Service: Hospital Medicine Author Type: Physician Type: HANDP Filed: 03/05/2019 2:06 PM Note Text: SERVICE DATE: 03/05/2019 SERVICE TIME: 2:05 PM HOSPITAL MEDICINE HISTORY AND PHYSICAL PCP: King Mullen MD NIGHT AND WEEKEND COVERAGE: Nights: Please contact pager [phone]. SUBJECTIVE Chief Complaint: Abdominal pain HPI: This [...] CHOLEYCYSTECTOMY 09/2009 - PAST SURGICAL HISTORY OF 4093-8491 bilat knee arthroscopic - REMOVE TONSILS/ADENOIDS,<12 Y/O [...] Hold HCTZ today Medication and Non-Pharmacologic VTE Prophylaxis/Anticoagulants Anticoagulant AND Antiplatelet Medications (From admission, onward) Start Dose Route Frequency Ordered Stop 03/05/19 1300 aspirin, enteric coated 81 mg tab(s) 81 mg ORAL DAILY 03/05/19 1244 -- 03/05/19 1245 vte non-pharmacologic prophylaxis - none indicated (fl,oh) 03/05/19 1245 activity - mobilize patient (ny,ak) VTE Prophylaxis: VTE prophylaxis appropriate Plan of care d/w patient and at bedside. Dr. Nugent SIGNATURE: Saba Coburn DO PATIENT NAME: Christina Macias DATE: March 05, 2019 TIME: 2:05 PM PAGER/CONTACT #: [phone] [facility] Lipaseon 03-05-2019 Lipase enzyme act/vol 24 U/L Normal 16- [facility] Comment on above: Performed By: #### C BCDIF, LIPA, PT, PTT, CMP #### [facility] [address] [facility] [phone] NURSING PROGon 03-05-2019 Protein mass conc HNO ID: [id number] Author: Merline (Rn) JAYDEN Thompson Service: ? Author Type: Registered Nurse Type: Nursing Progress Note Filed: 03/10/2019 8:13 PM Note Text: Nursing Progress Note Patient Name: Christina Macias Patient Location: [id number] Daily Note: 1900- Bedside report received from [...] was completed by: Merline Thompson RN [facility] 03-05-2019 Prothrombin time (PT) Coag time (PPP) 1.0 s Normal 0.9-1.3 [facility] Comment on above: Result Comment: Kierra min K Antagonist (VKA) Therapeutic Range: INR 2 to 3 (Target INR of 2.5) Note: For patients treated with VKA drugs, such as warfarin, the [place] [employer] 2012 Guideline recommends [...] 2.5 to 3.5 (target INR of 3). Guyatt GH, et al. Chest 2012, 141:7S-47S Maikel RA, et al. [facility] 2017, 70: [phone] Specimen moderately hemolyzed Performed By: #### C BCDIF, LIPA, PT, PTT, CMP #### [facility] [address] [facility] [phone] Prothrombin time (PT) Coag time (PPP) 10.1 s Normal 9.7-13.0 [facility] Comment on above: Result Comment: Spec imen moderately hemolyzed Performed By: #### C BCDIF, LIPA, PT, PTT, CMP #### [facility] [address] [facility] [phone] Vital Signs Date Time Vital Sign Value Performing Clinician Facility 07-26-2025 07:49-0400 Body height 167.[address] Andrew Billingsley MD Work Phone: [facility] 07-26-2025 07:49-0400 Body mass index (BMI) [Ratio] 25 kg/m2 Dr. Andrew Billingsley MD Work Phone: [facility] 07-26-2025 07:49-0400 Body temperature 98.2 [degF] Dr. Andrew Billingsley MD Work Phone: [facility] 07-26-2025 07:49-0400 Body weight 70.[address] Andrew Billingsley MD Work Phone: [facility] 07-26-2025 07:49-0400 Diastolic blood pressure 78 mm[Hg] Dr. Andrew Billingsley MD Work Phone: [facility] 07-26-2025 07:49-0400 Heart rate 64 /min Dr. Andrew Billingsley MD Work Phone: [facility] 07-26-2025 07:49-0400 SaO2% (BldA) [Mass fraction] 96 % Dr. Andrew Billingsley MD Work Phone: [facility] 07-26-2025 07:49-0400 Systolic blood pressure 187 mm[Hg] Dr. Andrew Billingsley MD Work Phone: [facility] 07-19-2025 14:18-0400 Diastolic blood pressure 79 mm[Hg] Des Alva MD Work Phone: [facility] 07-19-2025 14:18-0400 Heart rate 63 /min Des Alva MD Work Phone: [facility] 07-19-2025 14:18-0400 Respiratory rate 16 /min Des Alva MD Work Phone: [facility] 07-19-2025 14:18-0400 SaO2% (BldA) [Mass fraction] 99 % Des Alva MD Work Phone: [facility] 07-19-2025 14:18-0400 Systolic blood pressure 168 mm[Hg] Des Alva MD Work Phone: [facility] 07-19-2025 13:36-0400 Body height 167.6 cm Des Alva MD Work Phone: [facility] 07-19-2025 13:36-0400 Body mass index (BMI) [Ratio] 24.62 kg/m2 Des Alva MD Work Phone: [facility] 07-19-2025 13:36-0400 Body weight 69.2 kg Des Alva MD Work Phone: [facility] 07-11-2025 19:00-0400 Diastolic blood pressure 91 mm[Hg] Dr. Andrew Billingsley MD Work Phone: [facility] 07-11-2025 19:00-0400 Heart rate 81 /min Dr. Andrew Billingsley MD Work Phone: [facility] 07-11-2025 19:00-0400 Respiratory rate 16 /min Dr. Andrew Billingsley MD Work Phone: [facility] 07-11-2025 19:00-0400 SaO2% (BldA) [Mass fraction] 96 % Dr. Andrew Billingsley MD Work Phone: [facility] 07-11-2025 19:00-0400 Systolic blood pressure 162 mm[Hg] Dr. Andrew Billingsley MD Work Phone: [facility] 07-11-2025 18:56-0400 Body temperature 98.2 [degF] Dr. Andrew Billingsley MD Work Phone: [facility] 07-11-2025 10:43-0400 Body height 167.[address] Andrew Billingsley MD Work Phone: [facility] 07-11-2025 10:43-0400 Body mass index (BMI) [Ratio] 25 kg/m2 Dr. Andrew Billingsley MD Work Phone: [facility] 07-11-2025 10:43-0400 Body weight 70.[address] Andrew Billingsley MD Work Phone: [facility] 01-27-2025 14:22-0400 Body height 167.[address] Andrew Billingsley MD Work Phone: [facility] 01-27-2025 14:22-0400 Body mass index (BMI) [Ratio] 24.8 kg/m2 Dr. Andrew Billingsley MD Work Phone: [facility] 01-27-2025 14:22-0400 Body temperature 98.2 [degF] Dr. Andrew Billingsley MD Work Phone: [facility] 01-27-2025 14:22-0400 Body weight 69.[address] Andrew Billingsley MD Work Phone: [facility] 01-27-2025 14:22-0400 Diastolic blood pressure 71 mm[Hg] Dr. Andrew Billingsley MD Work Phone: [facility] 01-27-2025 14:22-0400 Heart rate 56 /min Dr. Andrew Billingsley MD Work Phone: [facility] 01-27-2025 14:22-0400 Respiratory rate 16 /min Dr. Andrew Billingsley MD Work Phone: [facility] 01-27-2025 14:22-0400 SaO2% (BldA) [Mass fraction] 98 % Dr. Andrew Billingsley MD Work Phone: [facility] 01-27-2025 14:22-0400 Systolic blood pressure 136 mm[Hg] Dr. Andrew Billingsley MD Work Phone: [facility] 12-14-2024 00:42-0500 Body temperature 98 [degF] Dr. Andrew Billingsley MD Work Phone: [facility] 12-14-2024 00:42-0500 Diastolic blood pressure 67 mm[Hg] Dr. Andrew Billingsley MD Work Phone: [facility] 12-14-2024 00:42-0500 Heart rate 58 /min Dr. nAdrew Billingsley MD Work Phone: [facility] 12-14-2024 00:42-0500 Respiratory rate 16 /min Dr. Andrew Billingsley MD Work Phone: [facility] 12-14-2024 00:42-0500 SaO2% (BldA) [Mass fraction] 97 % Dr. Andrew Billingsley MD Work Phone: [facility] 12-14-2024 00:42-0500 Systolic blood pressure 149 mm[Hg] Dr. Andrew Billingsley MD Work Phone: [facility] 12-13-2024 21:01-0500 Body mass index (BMI) [Ratio] 26.1 kg/m2 Dr. Andrew Billingsley MD Work Phone: [facility] 12-13-2024 21:01-0500 Body weight 73.[address] Andrew Billingsley MD Work Phone: [facility] 05-14-2023 12:46-0400 Body temperature 97.81 [degF] Lynne Aparicio SIGNAL APPRENTICE.[employer] Work Phone: [facility] 05-14-2023 12:46-0400 Body weight 85.91 kg Lynne Aparicio SIGNAL APPRENTICE.[employer] Work Phone: [facility] 05-14-2023 12:46-0400 Diastolic blood pressure 82 mm[Hg] Lynne Aparicio SIGNAL APPRENTICE.[employer] Work Phone: [facility] 05-14-2023 12:46-0400 Heart rate 62 /min Lynne Aparicio SIGNAL APPRENTICE.[employer] Work Phone: [facility] 05-14-2023 12:46-0400 Respiratory rate 18 /min Lynne Aparicio SIGNAL APPRENTICE.[employer] Work Phone: [facility] 05-14-2023 12:46-0400 SaO2% (BldA) [Mass fraction] 96 % Lynne Aparicio SIGNAL APPRENTICE.[employer] Work Phone: [facility] 05-14-2023 12:46-0400 Systolic blood pressure 128 mm[Hg] Lynne Aparicio [employer] Work Phone: [facility] 09-09-2022 13:08-0400 Body temperature 97.4 [degF] Dr. Britt Srivastava Work Phone: [facility] Work Phone: 09-09-2022 13:08-0400 Body weight 90.[address] Britt Srivastava Work Phone: [facility] Work Phone: 09-09-2022 13:08-0400 Diastolic blood pressure 77 mm[Hg] Dr. Britt Srivastava Work Phone: [facility] Work Phone: 09-09-2022 13:08-0400 Heart rate 68 /min Dr. Britt Srivastava Work Phone: [facility] Work Phone: 09-09-2022 13:08-0400 Respiratory rate 16 /min Dr. Britt Srivastava Work Phone: [facility] Work Phone: 09-09-2022 13:08-0400 SaO2% (BldA) [Mass fraction] 94 % Dr. Britt Srivastava Work Phone: [facility] Work Phone: 09-09-2022 13:08-0400 Systolic blood pressure 155 mm[Hg] Dr. Britt Srivastava Work Phone: [facility] Work Phone: 07-14-2022 10:25-0400 Diastolic blood pressure 74 mm[Hg] Dr. Britt Srivastava Work Phone: [facility] Work Phone: 07-14-2022 10:25-0400 Heart rate 96 /min Dr. Britt Srivastava Work Phone: [facility] Work Phone: 07-14-2022 10:25-0400 Systolic blood pressure 148 mm[Hg] Dr. Britt Srivastava Work Phone: [facility] Work Phone: 07-14-2022 10:06-0400 Body temperature 97.9 [degF] Dr. Britt Srivastava Work Phone: [facility] Work Phone: 07-14-2022 10:06-0400 Respiratory rate 16 /min Dr. Britt Srivastava Work Phone: [facility] Work Phone: 07-14-2022 10:06-0400 SaO2% (BldA) [Mass fraction] 98 % Dr. Britt Srivastava Work Phone: [facility] Work Phone: 07-12-2022 22:07-0400 Body height 167.[address] Britt Srivastava Work Phone: [facility] Work Phone: 07-12-2022 21:09-0400 Body temperature 97.6 [degF] Dr. Britt Srivastava Work Phone: [facility] Work Phone: 07-12-2022 21:09-0400 Diastolic blood pressure 68 mm[Hg] Dr. Britt Srivastava Work Phone: [facility] Work Phone: 07-12-2022 21:09-0400 Heart rate 108 /min Dr. Britt Srivastava Work Phone: [facility] Work Phone: 07-12-2022 21:09-0400 Respiratory rate 16 /min Dr. Britt Srivastava Work Phone: [facility] Work Phone: 07-12-2022 21:09-0400 SaO2% (BldA) [Mass fraction] 97 % Dr. Britt Srivastava Work Phone: [facility] Work Phone: 07-12-2022 21:09-0400 Systolic blood pressure 157 mm[Hg] Dr. Britt Srivastava Work Phone: [facility] Work Phone: 07-12-2022 16:14-0400 Body height 167.[address] Britt Srivastava Work Phone: [facility] Work Phone: 07-12-2022 16:14-0400 Body mass index (BMI) [Ratio] 33.3 kg/m2 Dr. Britt Srivastava Work Phone: [facility] Work Phone: 07-12-2022 16:14-0400 Body weight 93.[address] Britt Srivastava Work Phone: [facility] Work Phone: 07-12-2022 01:31-0400 Diastolic blood pressure 71 mm[Hg] Dr. Britt Srivastava Work Phone: [facility] Work Phone: 07-12-2022 01:31-0400 Heart rate 80 /min Dr. Britt Srivastava Work Phone: [facility] Work Phone: 07-12-2022 01:31-0400 Respiratory rate 18 /min Dr. Britt Srivastava Work Phone: [facility] Work Phone: 07-12-2022 01:31-0400 SaO2% (BldA) [Mass fraction] 98 % Dr. Britt Srivastava Work Phone: [facility] Work Phone: 07-12-2022 01:31-0400 Systolic blood pressure 138 mm[Hg] Dr. Britt Srivastava Work Phone: [facility] Work Phone: 07-11-2022 21:38-0400 Body mass index (BMI) [Ratio] 32.3 kg/m2 Dr. Britt Srivastava Work Phone: [facility] Work Phone: 07-11-2022 21:38-0400 Body temperature 98.2 [degF] Dr. Britt Srivastava Work Phone: [facility] Work Phone: 07-11-2022 21:38-0400 Body weight 90.[address] Britt Srivastava Work Phone: [facility] Work Phone: 07-10-2022 09:36-0400 Heart rate 61 /min DR GABRIELA SUTHERLAND MD [facility] 07-10-2022 08:18-0400 Body temperature 98.42 [degF] DR GABRIELA SUTHERLAND MD [facility] 07-10-2022 08:18-0400 Diastolic blood pressure 54 mm[Hg] DR GABRIELA SUTHERLAND MD [facility] 07-10-2022 08:18-0400 Heart rate 61 /min DR GABRIELA SUTHERLAND MD [facility] 07-10-2022 08:18-0400 Reason For Taking VItal Signs DR GABRIELA SUTHERLAND MD [facility] 07-10-2022 08:18-0400 Respiratory rate 18 /min DR GABRIELA SUTHERLAND MD [facility] 07-10-2022 08:18-0400 Systolic blood pressure 118 mm[Hg] DR GABRIELA SUTHERLAND MD [facility] 07-10-2022 05:24-0400 Body temperature 97.52 [degF] DR GABRIELA SUTHERLAND MD [facility] 07-10-2022 05:24-0400 Diastolic blood pressure 71 mm[Hg] DR GABRIELA SUTHERLAND MD [facility] 07-10-2022 05:24-0400 Heart rate 71 /min DR GABRIELA SUTHERLAND MD [facility] 07-10-2022 05:24-0400 Mean blood pressure 87 mm[Hg] DR GABRIELA SUTHERLAND MD [facility] 07-10-2022 05:24-0400 Reason For Taking VItal Signs DR GABRIELA SUTHERLAND MD [facility] 07-10-2022 05:24-0400 Respiratory rate 18 /min DR GABRIELA SUTHERLAND MD [facility] 07-10-2022 05:24-0400 Systolic blood pressure 119 mm[Hg] DR GABRIELA SUTHERLAND MD [facility] 07-09-2022 23:45-0400 Body temperature 97.7 [degF] DR GABRIELA SUTHERLAND MD [facility] 07-09-2022 23:45-0400 Diastolic blood pressure 69 mm[Hg] DR GABRIELA SUTHERLAND MD [facility] 07-09-2022 23:45-0400 Heart rate 79 /min DR GABRIELA SUTHERLAND MD [facility] 07-09-2022 23:45-0400 Mean blood pressure 93 mm[Hg] DR GABRIELA SUTHERLAND MD [facility] 07-09-2022 23:45-0400 Reason For Taking VItal Signs DR GABRIELA SUTHERLAND MD [facility] 07-09-2022 23:45-0400 Respiratory rate 16 /min DR GABRIELA SUTHERLAND MD [facility] 07-09-2022 23:45-0400 Systolic blood pressure 140 mm[Hg] DR GABRIELA SUTHERLAND MD [facility] 07-09-2022 19:35-0400 Heart rate 84 /min DR GABRIELA SUTHERLAND MD [facility] 07-09-2022 19:35-0400 Mean blood pressure 88 mm[Hg] DR GABRIELA SUTHERLAND MD [facility] 07-09-2022 17:29-0400 Heart rate 76 /min DR GABRIELA SUTHERLAND MD [facility] 07-09-2022 15:34-0400 Heart rate 94 /min DR GABRIELA SUTHERLAND MD [facility] 07-09-2022 10:45-0400 Heart rate 78 /min DR GABRIELA SUTHERLAND MD [facility] 07-09-2022 10:30-0400 Body height 167.[address] GABRIELA SUTHERLAND MD [facility] 07-09-2022 10:30-0400 Body weight 90.[address] GABRIELA SUTHERLAND MD [facility] 07-09-2022 10:30-0400 Body weight 32.36 kg/m2 DR GABRIELA SUTHERLAND MD [facility] 07-09-2022 10:13-0400 Diastolic Blood Pressure NBP [address] GABRIELA SUTHERLAND MD [facility] 07-09-2022 10:13-0400 Systolic Blood Pressure NBP [address] GABRIELA SUTHERLAND MD [facility] 07-09-2022 10:00-0400 Diastolic Blood Pressure NBP [address] GABRIELA SUTHERLAND MD [facility] 07-09-2022 10:00-0400 Systolic Blood Pressure NBP [address] GABRIELA SUTHERLAND MD [facility] 07-09-2022 09:45-0400 Diastolic Blood Pressure NBP [address] GABRIELA SUTHERLAND MD [facility] 07-09-2022 09:45-0400 Systolic Blood Pressure NBP [address] GABRIELA SUTHERLAND MD [facility] 07-09-2022 09:01-0400 Body temperature 97.34 [degF] DR GABRIELA SUTHERLAND MD [facility] 07-09-2022 05:49-0400 Body height 167.[address] GABRIELA SUTHERLAND MD [facility] 07-09-2022 05:49-0400 Body temperature 95.54 [degF] DR GABRIELA SUTHERLAND MD [facility] 07-09-2022 05:49-0400 Body weight 90.[address] GABRIELA SUTHERLAND MD [facility] 06-28-2022 09:29-0400 Body height 167.[address] GABRIELA SUTHERLAND MD [facility] 06-28-2022 09:29-0400 Body weight 90.[address] GABRIELA SUTHERLAND MD [facility] 06-28-2022 09:29-0400 Body weight 32.36 kg/m2 DR GABRIELA SUTHERLAND MD [facility] 06-28-2022 09:29-0400 diastolic 74 mm[Hg] DR GABRIELA SUTHERLAND MD [facility] 06-28-2022 09:29-0400 Heart rate 72 /min DR GABRIELA SUTHERLAND MD [facility] 06-28-2022 09:29-0400 systolic 138 mm[Hg] DR GABRIELA SUTHERLAND MD [facility] 05-15-2022 09:22-0400 Diastolic blood pressure 68 mm[Hg] King Mullen MD Work Phone: [facility] 05-15-2022 09:22-0400 Systolic blood pressure 128 mm[Hg] King Mullen MD Work Phone: [facility] 05-15-2022 08:56-0400 Body weight 90.27 kg King Mullen MD Work Phone: [facility] 05-15-2022 08:56-0400 Heart rate 65 /min King Mullen MD Work Phone: [facility] 05-15-2022 08:56-0400 SaO2% (BldA) [Mass fraction] 99 % King Mullen MD Work Phone: [facility] Encounters Encounter Date Encounter Type Care Provider Facility Start: 07-29-2025 End: 07-29-2025 [facility] ANDREW BILLINGSLEY Facility:[facility] Start: 07-29-2025 End: 07-29-2025 [facility] ANDREW BILLINGSLEY Facility:[facility] Start: 07-28-2025 End: 07-28-2025 ambulatory ANDREW BILLINGSLEY Facility:[facility] Start: 07-27-2025 End: 07-27-2025 ambulatory SHEREE DE JESUS Facility:[facility] Start: 07-27-2025 End: 07-27-2025 ambulatory ANDREW BILLINGSLEY Facility:[facility] Start: 07-26-2025 End: 07-26-[address] Andrew Billingsley MD -[facility] Work Phone: Start: 07-26-2025 End: 07-26-[address] 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) Start: 07-19-2025 End: 07-19-2025 Patient encounter procedure Des Alva MD Work Phone: [facility] Comment on above: 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 Andrew Billingsley MD Work Phone: -Emergency Department Work Phone: Start: 07-05-2025 End: 07-05-[address] Andrew Billingsley MD Work Phone: -[facility] Start: 07-05-2025 End: 07-05-[address] Andrew Billingsley MD -[facility] Work Phone: Start: 07-05-2025 End: 07-05-2025 ambulatory Andrew Billingsley Facility:[facility] Start: 02-16-2025 End: 02-16-2025 ambulatory [facility] Facility:[facility] Start: 01-27-2025 End: 01-27-[address] Andrew Billingsley MD -[facility] Work Phone: Start: 01-27-2025 End: 01-27-2025 ambulatory Andrew Billingsley Facility:[facility] Start: 01-20-2025 End: 01-20-[address] Andrew Billingsley MD Work Phone: [facility] Work Phone: Start: 01-20-2025 End: 01-20-[address] Andrew Billingsley MD -Laboratory Work Phone: Start: 01-20-2025 End: 01-20-2025 ambulatory Andrew Billingsley Facility:[facility] Start: 12-13-2024 End: 12-14-2024 Emergency department patient visit Thomas Quintanilla DO -Emergency Department Work Phone: Start: 09-15-2024 End: 09-15-2024 ambulatory Andrew Billingsley Facility:[facility] Start: 09-09-2024 End: 09-09-2024 ambulatory Andrew Billingsley Facility:[facility] Start: 09-04-2023 End: 09-04-2023 ambulatory [facility] Work Phone: Start: 09-04-2023 End: 09-04-2023 [facility] Start: 05-14-2023 End: 05-14-2023 Patient encounter procedure Lynne Aparicio APRN.[facility] Work Phone: [facility] Comment on above: Bilateral impacted c erumen (Primary Dx) Start: 05-07-2023 End: 05-07-2023 [facility] Start: 03-28-2023 End: 03-28-2023 ambulatory [facility] Work Phone: Start: 03-28-2023 End: 03-28-2023 [facility] Start: 09-30-2022 End: 09-30-[address] Britt Srivastava Work Phone: [facility] Work Phone: Start: 09-30-2022 End: 09-30-[address] Britt Srivastava Work Phone: [facility] Start: 09-09-2022 ambulatory King peters MD Work Phone: [employer] [facility] Comment on above: New doctor Start: 09-09-2022 End: 09-09-[address] Britt Srivastava Work Phone: [facility] Start: 08-07-2022 Non-patient / Non-visit Dr. Cesar Srivastava Work Phone: [facility] Start: 07-14-2022 Non-patient / Non-visit Dr. Cesar Srivastava Work Phone: [facility] Start: 07-13-2022 End: 07-14-2022 Evaluation and management of inpatient Dr. Britt Srivastava Work Phone: [facility] Start: 07-12-2022 Non-patient / Non-visit Dr. Cesar Srivastava Work Phone: [facility] Start: 07-12-2022 Evaluation and manag ement of inpatient Dr. Britt Srivastava Work Phone: [facility] Start: 07-12-[address] Carline Srivastava Work Phone: [facility] Work Phone: Start: 07-11-2022 End: 07-12-2022 Emergency department patient visit Dr. Britt Srivastava Work Phone: [facility] Start: 07-09-2022 End: 07-10-[address] GABRIELA SUTHERLAND MD [facility] Start: 06-28-2022 End: 06-28-[address] GABRIELA SUTHERLAND MD [facility] Start: 05-15-2022 End: 05-15-2022 Patient encounter procedure King Mullen MD Work Phone: [employer] Comment on above: HTN (hypertension), benign (Primary Dx); Prediabetes; Hyperlipidemia, unspecified hyperlipidemia type; Vitamin D deficiency; Primary osteoarthritis of right hip; Preop examination Start: 05-15-2022 End: 05-15-2022 Preprocedural examination done King Mullen MD Work Phone: [employer] Start: 04-15-2022 ambulatory Flori (Pcna)( Hist) Gross [facility] Start: 04-15-2022 Patient encounter procedure Flori (Pcna)(Hist) Ruth [facility] Comment on above: Appointment ([facility]) Start: 02-09-2022 Refill King peters MD Work Phone: [employer] Comment on above: Refill Request Start: 03-05-2019 End: 03-06-2019 Patient encounter procedure [facility] Procedures Date Procedure Procedure Detail Performing Clinician Start: 07-11-2025 Urnls dip stick/tabl et reagent auto microscopy Dr. Andrew Billingsley MD Work Phone: Start: 07-11-2025 CT of head without contrast Dr. Andrew Billingsley MD Work Phone: Start: 07-11-[address] Andrew Billingsley MD Work Phone: Start: 07-05-2025 Vitamin D, 25-hydrox y measurement Dr. Andrew Billingsley MD Work Phone: Comment on above: Vitamin D StatusDefi ciency: <20 ng/mL (50nmol/L)Insufficiency: 20-30 ng/mL (50-75 nmol/L)Sufficiency: 30-100 ng/mL (75-250 nmol/L)Toxicity: >100 ng/mL (>250 nmol/L) Start: 12-13-2024 CT of head without contrast Dr. Andrew Billingsley MD Work Phone: Start: 07-12-2022 Computed tomography of abdomen and pelvis with contrast Dr. Britt Srivastava Work Phone: Start: 01-14-2022 Lipid 1996 panel - S isidro or Plasma Des Alva MD Work Phone: Start: 03-06-2021 Adult depression scr [...] Detail Author Start: 01-16-2030 Urine microalbumin profile [facility] Start: 07-14-2028 Diabetes Screening Diabetes Screenin g [facility] Start: 01-14-2027 Lipid panel Lipid Screening [facility] Start: 01-14-2027 LIPID SCREEN LIPID SCREEN [facility] Start: 08-09-2025 End: 08-09-2025 Patient encounter procedure 08/09/2025 10:00 AM EDT Office Visit [facility] [address] [facility] [id number] Des Alva MD [address] [place], [place] [id number] GAMMA post op [facility] Comment on above: GAMMA post op Start: 07-28-2025 End: 07-28-2025 ambulatory Hematology/Oncology Comment on above: CULLET TRUCKER/DX: metastatic tia ng cancer/REF PROV DR ALVA* CULLET TRUCKER/DX: metastatic tia ng cancer/REF PROV DR ALVA* 1st avail Start: 07-27-2025 End: 07-27-2025 Admission to same day surgery center 07/27/2025 1:22 PM EDT - 07/27/2025 2:52 PM EDT Surgery Anesthesia [address] [address] Des Alva MD [address] [place], [place] [id number] STEREOTACTIC RADIOSURGERY 1 COMPLEX CRANIAL LESION Anesthesia Comment on above: STEREOTACTIC RADIOSU RGERY 1 COMPLEX CRANIAL LESION Start: 07-27-2025 End: 07-27-2025 Radiation delivery stereotactic cranial cobalt RADIATION TX STEREOTACTIC RADIOSURGERY (SRS) TX CRANIAL LESION(S) 1 SESSION MULTI-SOURCE COBALT Malignant neoplasm metastatic to brain (HCC) 07/27/2025 1:22 PM EDT ANESTHESIA ONLY Start: 07-27-2025 End: 07-27-2025 Stereotactic radiosurgery 1 complex cranial les STEREOTACTIC RADIOSURGERY 1 COMPLEX CRANIAL LESION Malignant neoplasm metastatic to brain (HCC) 07/27/2025 1:22 PM EDT ANESTHESIA ONLY Start: 07-27-2025 End: 07-27-2025 Patient encounter procedure Radiation Oncology Comment on above: [facility]K/STC Start: 07-27-2025 End: 07-27-2025 Patient encounter procedure Neurosurgery Comment on above: MASK - THIS IS NOT A REAL APPOINTMENT; PLEASE DISREGARD GK/STC SIM@ MRI@ CT use cpt code [id number] GK/STC MRI@700 CT Si mAfter Start: 07-27-2025 Subsequent hospital visit by physician Anesthesia Comment on above: Malignant neoplasm m etastatic to brain (HCC) [C79.31] Start: 07-20-2025 End: 07-20-2025 Patient encounter procedure 07/20/2025 1:[address] [facility] Radiation Oncology [address] [place] [address] [place] [address] [place], [place] [id number] N/C GK consult Radiation Oncology Comment on above: N/C [facility]K consult Start: 07-11-2025 [facility] Start: 07-11-2025 Influenza vaccination Influenza Vacc ine (#1) [facility] Start: 01-14-2025 DIABETES SCREEN DIABETES SCREEN [facility] Start: 12-14-2024 [facility] Start: 11-10-2024 Advance Directive Discussion Advance Directive Discussion [facility] Start: 05-10-2024 Colonoscopy COLONOSCOPY [facility] Start: 05-10-2024 COLORECTAL CANCER SCREENING COLORECTAL CANCER SCREENING [facility] Start: 05-10-2024 Screening for malign ant neoplasm of colon [facility] Start: 07-11-2023 Influenza vaccination INFLUENZA (#1) [facility] Start: 05-15-2023 ANNUAL PCP TEAM 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 TODD DISEASE VISIT ANNUAL PCP TEAM CHRONIC DISEASE VISIT [facility] Start: 05-15-2023 BP CONTROLLED (<130/80) BP CON TROLLED (<130/80) [facility] Start: 05-15-2023 COVID-19 VACCINE (#1) COVID-19 VACCI NE (#1) [facility] Comment on above: Postponed from 06/20 (Declined at this time) Start: 01-06-2023 BP CONTROLLED (<130/80) BP CON TROLLED (<130/80) [facility] Start: 11-10-2022 ADVANCE DIRECTIVE DISCUSSION ADVANCE DIRECTIVE DISCUSSION [facility] Start: 11-10-2022 DEPRESSION ASSESSMENT DEPRESSION ASS ESSMENT [facility] Start: 11-08-2022 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 TODD DISEASE VISIT ANNUAL PCP TEAM CHRONIC DISEASE VISIT [facility] Start: 07-14-2022 Patient discharge [facility] Work Phone: Start: 07-14-2022 [facility] Work Phone: Start: 07-13-2022 Admission procedure [facility] Work Phone: Start: 07-12-2022 End: 07-13-2022 [facility] Work Phone: Start: 07-12-2022 Following clinical pathway protocol [facility] Work Phone: Start: 07-12-2022 Assessment of risk o f venous thromboembolism [facility] Work Phone: Start: 07-12-2022 Insertion of cathete r into peripheral vein [facility] Work Phone: Start: 07-12-2022 Oxygen therapy [facility] Work Phone: Start: 07-12-2022 Providing care accor ding to standard [facility] Work Phone: Start: 07-12-2022 Provision of activit y privileges [facility] Work Phone: Start: 07-12-2022 Verification routine [facility] Work Phone: Start: 07-12-2022 Admission procedure [facility] Work Phone: Start: 07-11-2022 Emergency department visit high/urgent severity EMERGENCY DEPT VISIT [facility] Work Phone: Start: 07-11-2022 Influenza vaccination INFLUENZA (#1) [facility] Start: 07-11-2022 Iv infusion hydratio n each additional hour HYDRATE IV INFUSION ADD-ON [facility] Work Phone: Start: 07-11-2022 Ther proph/dx njx ea seql iv push sbst/drug fac TX/PRO/DX INJ SAME DRUG 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 [facility] Work Phone: Start: 07-11-2022 Ther proph/dx njx iv push single/1st sbst/drug THER/PROPH/DIAG INJ IV PUSH [facility] Work Phone: Start: 03-06-2022 Adult depression screening assessment DEPRESSION SCREENING [facility] Start: 11-10-2021 ADVANCE DIRECTIVE DISCUSSION ADVANCE DIRECTIVE DISCUSSION [facility] Start: 11-10-2021 DEPRESSION ASSESSMENT DEPRESSION ASS ESSMENT [facility] Start: 07-20-2021 Mammography MAMMOGRAM [facility] Start: 07-20-2021 Screening for malign ant neoplasm of breast Mammogram Screening [facility] Start: 03-13-2020 SHINGRIX VACCINE (3 of 3) STOCKTON GRIX VACCINE (3 of 3) [facility] Start: 2018 BONE DENSITY BONE DENSITY [facility] Start: 2018 Screening for osteoporosis Bone Density Screening [facility] Start: 12-11-2018 Medicare Annual Well ness Visit Medicare Annual Wellness Visit [facility] Start: 2013 RSV Vaccine (1 - Ris k 60-74 years 1-dose series) RSV Vaccine (1 - Risk 60-74 years 1-dose series) [facility] Start: 04-03-2005 FECAL OCCULT BLOOD FECAL OCCULT BLOO D [facility] Start: 04-03-2005 Screening for malign ant neoplasm of colon Fecal Occult Blood [facility] Start: 1998 COLOGUARD (FIT-DNA) COLOGUARD (FIT-D NA) [facility] Start: [address] COLONOGRAPHY [facility] Start: 1998 Screening for malign ant neoplasm of colon [facility] Start: 1998 SIGMOIDOSCOPY SIGMOIDOSCOPY [facility] Start: 1971 Anxiety Screening Anxiety Screening [facility] Start: 1971 BP CONTROLLED (<130/80) BP CON TROLLED (<130/80) [facility] Start: 1971 Depression Screening Depression Scre ening [facility] Start: 1958 COVID-19 VACCINE (#1) COVID-19 VACCI NE (#1) [facility] Start: 1958 COVID-19 VACCINE (1) COVID-19 VACCIN E (1) [facility] Giardia lamblia Ag [Presence] in Stool by Immunoassay [facility] Work Phone: Patient Education [facility] Work Phone: Patient referral [facility] Work Phone: Radiation delivery stereotactic cranial cobalt RADIATION TX STEREOTACTIC RADIOSURGERY (SRS) TX CRANIAL LESION(S) 1 SESSION MULTI-SOURCE COBALT Malignant neoplasm metastatic to brain (HCC) [facility] ANESTHESIA ONLY Removal impacted cer umen irrigation/lvg unilat AMBULATORY EAR LAVAGE/IRRIGATION Procedures Routine Bilateral impacted cerumen Ordered: 05/14/2023 [facility] Work Phone: Comment on above: Ordered: 05/14/2023 Stereotactic radiosu rgery 1 complex cranial les STEREOTACTIC RADIOSURGERY 1 COMPLEX CRANIAL LESION Malignant neoplasm metastatic to brain (HCC) [facility] ANESTHESIA ONLY Immunizations Immunization Date Immunization Notes Care Provider [facility] 08-17-2022 influenza, injectabl e, quadrivalent, preservative free [facility] 08-17-2022 influenza, seasonal, injectable Dr. Britt Srivastava Work Phone: [facility] 08-17-2022 influenza virus vacc ine, unspecified formulation Des Alva MD Work Phone: [facility] 11-08-2021 pneumococcal polysaccharide vaccine, 23 valent King Mullen MD Work Phone: [facility] 10-13-2021 influenza virus vacc ine, unspecified formulation DR GABRIELA SUTHERLAND MD [facility] 10-13-2021 Seasonal, quadrivale nt, recombinant, injectable influenza vaccine, preservative free King Mullen MD Work Phone: [facility] 09-02-2020 influenza virus vacc ine, unspecified formulation King Mullen MD Work Phone: [facility] 09-01-2020 influenza (aIIV4) vaccine, age 65+ yr, quadrivalent, PF (FLUAD QUADRIVALENT) King Mullen MD Work Phone: [facility] Work Phone: 09-01-2020 influenza virus vacc ine, unspecified formulation DR GABRIELA SUTHERLAND MD [facility] 09-01-2020 influenza, high dose seasonal, preservative-free King Mullen MD Work Phone: [facility] 07-22-2019 influenza virus vacc ine, unspecified formulation DR GABRIELA SUTHERLAND MD [facility] 07-22-2019 influenza, high dose seasonal, preservative-free King Mullen MD Work Phone: [facility] 09-10-2018 influenza virus vacc ine, unspecified formulation DR GABRIELA SUTHERLAND MD [facility] 09-10-2018 influenza, high dose seasonal, preservative-free King Mullen MD Work Phone: [facility] 08-12-2017 influenza virus vacc ine, unspecified formulation DR GABRIELA SUTHERLAND MD [facility] 08-12-2017 influenza, injectabl e, quadrivalent, contains preservative King Mullen MD Work Phone: [facility] 10-24-2016 pneumococcal conjuga te vaccine, 13 valent King Mullen MD Work Phone: [facility] 08-17-2016 influenza virus vacc ine, unspecified formulation DR GABRIELA SUTHERLAND MD [facility] 08-17-2016 influenza, injectabl e, quadrivalent, contains preservative King Mullen MD Work Phone: [facility] 08-17-2016 influenza, seasonal, injectable King Mullen MD Work Phone: [facility] 09-23-2015 influenza virus vacc ine, unspecified formulation DR GABRIELA SUTHERLAND MD [facility] 09-23-2015 influenza, injectabl e, quadrivalent, contains preservative King Mullen MD Work Phone: [facility] 09-03-2014 influenza virus vacc ine, unspecified formulation DR GABRIELA SUTHERLAND MD [facility] 09-03-2014 influenza, seasonal, injectable King Mullen MD Work Phone: [facility] 06-17-2014 zoster vaccine, live Philippe Mullen MD Work Phone: [facility] 04-21-2014 pneumococcal polysaccharide vaccine, 23 valent King Mullen MD Work Phone: [facility] 09-11-2013 influenza virus vacc doretha, unspecified formulation King Mullen MD Work Phone: [facility] Work Phone: 08-15-2011 influenza virus vacc doretha, unspecified formulation King Mullen MD Work Phone: [facility] 08-01-2010 influenza virus vacc doretha, unspecified formulation King Mullen MD Work Phone: [facility] 07-24-2009 influenza virus vacc doretha, unspecified formulation King Mullen MD Work Phone: [facility] 03-01-2009 tetanus toxoid, redu quan diphtheria toxoid, and acellular pertussis vaccine, adsorbed King Mullen MD Work Phone: [facility] 08-31-2008 influenza virus vacc doretha, unspecified formulation King Mullen MD Work Phone: [facility] 09-19-2007 influenza virus vacc ine, unspecified formulation King Mullen MD Work Phone: [facility] 09-23-2006 influenza virus vacc ine, unspecified formulation King Mullen MD Work Phone: [facility] 09-28-2005 influenza virus vacc ine, unspecified formulation King Mullen MD Work Phone: [facility] 09-11-2004 influenza virus vacc ine, unspecified formulation King Mullen MD Work Phone: [facility] 10-10-2003 influenza virus vacc ine, unspecified formulation King Mullen MD Work Phone: [facility] 03-02-1999 tetanus and diphther ia toxoids, adsorbed, preservative free, for adult use (2 Lf of tetanus toxoid and 2 Lf of diphtheria toxoid) King Mullen MD Work Phone: [facility] Work Phone: Payers Date Payer Category Payer Private Health Insurance [facility] [id number] 2024 Self-pay 2024 Unknown [id number] 2021 Unknown MMO MMO MEDICARE SUPPLEMENT [id number] 2021-Present [phone] [address] [place] [address] Indemnity [id number] 2021 Unknown MMO MMO MEDICARE SUPPLEMENT [id number] 2021-Present [phone] [address] [place] [address] Indemnity [id number] 2018 Medicare MEDICARE MEDICAR E A AND B [id number] 2018-Present [phone] [address] [address] [place] [address] Medicare [id number] 2018 Medicare [id number] 2018 Medicare [id number] Unknown [id number] Unknown [id number] Unknown [id number] Unknown [id number] Unknown [id number] Unknown [id number] Unknown [id number] Unknown [id number] Unknown [id number] Unknown [id number] Social History Date Type Detail Facility Start: 05-14-2023 End: 07-11-2025 Tobacco smoking status NHIS Ex-smoker [facility] Start: 11-10-1972 End: 11-10-1997 History of tobacco use Current smoker [facility] Start: 11-10-1972 End: 11-10-1997 History of tobacco use Cigarette Smoker [facility] Start: 01-06-2022 End: 07-19-2025 Alcohol intake Current drinker of alcohol (finding) [facility] Start: 10-13-2017 History SDOH Alcohol Comment rare [facility] Start: 01-15-2020 History SDOH Social Connections Phone 98 [facility] Start: 01-15-2020 End: 11-06-2021 History SDOH Social Connections Living 3 [facility] Start: 01-15-2020 End: 11-06-2021 History SDOH Stress 1 [facility] Start: 1955 Sex Assigned At Not on file [facility] Start: 12-15-2021 End: 05-15-2022 Exposure to SARS-CoV-2 (event) Not sure [facility] Start: 06-28-2022 Tobacco smoking status Never s moked tobacco (finding) [facility] Start: 1955 Sex Assigned At Female A [facility] Start: 07-12-2022 End: 09-09-2022 Tobacco smoking status GAIS Unknown if ever smoked [facility] Start: 05-14-2023 End: 07-19-2025 Cigarettes smoked current (pack per day) - Reported 2 [facility] Start: 05-14-2023 End: 07-19-2025 Tobacco use and exposure Smokeless tobacco non-user [facility] Start: 02-01-2025 Sex Female (finding) [facility] Start: 01-15-2020 End: 07-19-2025 Social connection and isolation panel [facility] Start: 10-11-2012 In a typical week, h ow many times do you talk on the telephone with family, friends, or neighbors? Patient declined [facility] Are you now , , , , never or living with a partner? [facility] Do you feel stress - tense, restless, nervous, or anxious, or unable to sleep at night because your mind is troubled all the time - these days [OSQ] Not at all [facility] (I/We) worried wheth er (my/our) food would run out before (I/we) got money to buy more. Never true [facility] In the past 12 month s, was there a time when you were not able to pay the mortgage or rent on time? No [facility] Medical Equipment Procedure Code Equipment Code Equipment Origin al Text Equipment Identifier Dates Lens Iol +20 Ty p Acrsf Iq - [id number] Start: 08-22-2011 Lens Iol +21.5 D iop Acrsf Iq - [id number] Start: 09-05-2011 Goals Date Patient Goal Desired Activity /State Personal health goal Personal health goal Functional Status Date Assessment Result Facility 07-14-2025 Are you deaf, or do you have serious difficulty hearing No 07/14/2025 3:06 PM Mitzi Mccormick RN No [facility] 07-14-2025 Are you blind, or do you have serious difficulty seeing, even when wearing glasses No 07/14/2025 3:06 PM Mitzi Mccormick, JAYDEN No [facility] 07-14-2025 Do you have serious difficulty walking or climbing stairs No 07/14/2025 3:06 PM Mitzi Mccormick, JAYDEN No [facility] 07-14-2025 Do you have difficul ty dressing or bathing No 07/14/2025 3:06 PM Mitzi Mccormick, JAYDEN [facility] 07-14-2025 Because of a physica l, mental, or emotional condition, do you have difficulty doing errands alone such as visiting a physician's office or shopping No 07/14/2025 3:06 PM Mitzi Mccormick, JAYDEN No [facility] 07-14-2022 Functional status Chair [facility] Work Phone: 07-10-2022 Functional Status Room check performed [facility] 07-09-2022 [facility] Functional Status Dinner Percent 90 [facility] 07-09-2022 Functional Status Mod I [facility] 07-09-2022 Functional Status [facility] 07-09-2022 Functional Status Single level home [facility] 07-09-2022 Functional Status ice on [facility] 07-09-2022 Functional Status Maintained [facility] 06-28-2022 Functional Status Sensory Deficits None A [facility] Mental Status Date Assessment Result Facility 07-14-2025 Because of a physica l, mental, or emotional condition, do you have serious difficulty concentrating, remembering, or making decisions No 07/14/2025 3:06 PM EDT Mitzi Lewis, JAYDEN No [facility] 07-11-2025 Cognitive function Voice/Name [facility] Work Phone: 12-13-2024 Cognitive function Level Of Cons ciousness Awake;Alert;Appropriate [facility] Work Phone: 07-14-2022 Cognitive function Voice/Name [facility] Work Phone: 07-10-2022 Mental Status Orientation Asse ssment Oriented x 4 [facility] 07-10-2022 Mental Status Orientation Oriented x 4 [facility] 07-10-2022 Mental Status [facility] 07-09-2022 Mental Status [facility] Clinical Notes 09-18-2021 to 07-29-2025 Telephone Encounter - Hernandez Rosado RN - 07/21/2025 9:37 AM EDTTelephone Encounter - Hernandez oRsado RN - 07/21/2025 9:37 AM EDTTelephone Encounter - Hernandez Rosado RN - 07/19/2025 4:05 PM EDT Note Date & Type Note Facility 07-29-2025 Note HNO ID: [id number] Author: KEELEY RIVERS RN Service: ? Author Type: Registered Nurse Type: Progress Notes Filed: 07/29/2025 13:10 Note Text: July 29, 2025 1054 Christina Macias here for treatment session #3. Pt denies n/v today and confirms she was able to take decadron as prescribed. Transportation home verified: yes, with family. Is patient on immunotherapy? No. 1100 BP today is 181/93. Pt asymptomatic. Pt states she did not take her BP medication as she is worried it would make her vomit and she wouldn't make it to her treatment today. Pt plans to take her medication when she gets home post [facility] today. Pt will take BP at home and if symptomatic and/or BP elevated, pt will present to ED. Dr. Alva aware. ID verified with patient with two identifiers, name and birthdate. Keeley Rivers RN Christina Macias assessed for the following: Does Christina Macias have any pain? No. Pain 0 on scale of 0-10 Does Christina Macias have: Difficulty chewing and/or swallowing: no Fall risk assessment: At risk due to: use of a wheelchair Concerns about physical or emotional abuse: no Allergies reviewed with patient, yes. Patient's Age: 69 Menstruation Status: Post Menopausal Pt took decadron prior to arrival to [facility] today. No additional decadron to be given prior to Gamma Knife SRS per order of Dr. Milagro MD. 1131 Patient assisted to treatment room. Gamma Knife SRS begun. 1230 Gamma Knife Stereotactic Radiosurgery Completed. 1235 Discharge instructions given to patient by Luis Alfredo Sutherland RN on 07/28. No additional questions or concerns today. Pt then discharged. Keeley Rivers RN [facility] 07-29-2025 Note HNO ID: [id number] Author: PROVIDER, [facility], ? Service: ? 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 DELIVERED DOSE: 1. 2400.0 cGy was prescribed to the 88% isodose line, which covered 100% of the target. The plan utilized 3 shots using 16 mm and 8 mm sectors. GTV volume = 0.58 cm3. Maximum dose = 2730.0 cGy. Maximum diameter = 1.2 cm. MD/PD = 1.137. PIV/CTV = 1.517. Gradient Index = 4.8. Number of Fractions = 1. 2. 2400.0 cGy was prescribed to the 80% isodose line, which covered 100% of the target. The plan utilized 2 shots using 8 mm sector. GTV volume = 0.16 cm3. Maximum dose = 3000.0 cGy. Maximum diameter = 0.71 cm. MD/PD = 1.25. PIV/CTV = 1.625. Gradient Index = 3.2. Number of Fractions = 1. 3. 2400.0 cGy was prescribed to the 90% isodose line, which covered 100% of the target. The plan utilized 1 shot using 8 mm sector. GTV volume = 0.084 cm3. Maximum dose = 2670.0 cGy. Maximum diameter = 0.62 cm. MD/PD = 1.113. PIV/CTV = 1.905. Gradient Index = 4.7. Number of Fractions = 1. 4. 2400.0 cGy was prescribed to the 94% isodose line, which covered 100% of the target. The plan utilized 2 shots using 8 mm sector. GTV volume = 0.05 cm3. Maximum dose = 2550.0 cGy. Maximum diameter = 0.52 cm. MD/PD = 1.062. PIV/CTV = 1.94. Gradient Index = 6.9. Number of Fractions = 1. 4 separate treatment plans were devised. ELAPSED TREATMENT TIME: 59 minutes (one session). TOLERANCE: Excellent. RESPONSE: To be evaluated. REMARKS: The patient will return in 1 mo for staged SRS. Authorized user was present during the entire treatment. The total treatment time was within 10% of the written directive. Staff Physician Abel De Jesus M.D./ :05 PM Electronically Signed cc: Andrew Billingsley - ENA MIRANDAGY [facility] 07-29-2025 Note HNO ID: [id number] Author: PROVIDER, [facility], ? Service: ? 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 PROCEDURE: Under my direct supervision the patient was set up on the treatment table and all treatment parameters were verified, including patient identity and treatment site. CBCT obtained which was co-registered using the treatment planning system. Adaptive replan was verified and approved. Once the beam was turned on, the patient position and target location were continuously monitored during delivery of the SRS using infrared tracking. At all points of decision-making with regard to patient setup, I conferred with the clinical medical transcriptionist to approve the final setup. I was available throughout the SRS treatment to manage the execution of the treatment and make real-time adjustments in response to patient motion, target movement, or equipment issues to ensure accuracy and safety. The patient was evaluated by me after treatment and was discharged in stable condition. TREATMENT VOLUMES: GTV (Defined by neurosurgeon) PHYSICIST NAME: Calvin Bond, PhD INTERVENTIONS: None ASSESSMENT/PLAN: Patient tolerated procedure well. We will continue as planned. Electronically Signed ABEL DE JESUS M.D. :21 PM [facility] 07-28-2025 Note HNO ID: [id number] Author: TIARRA SUTHERLAND RN Service: ? Author Type: Registered Nurse Type: Progress Notes Filed: 07/28/2025 12:31 Note Text: July 28, 2025 1035 Christina Macias here for treatment session two. She reports that she has not taken any Decadron since yesterday. States she tried to take a dose at home and had an emesis. States she continued to have emesis last evening. Dr. Alva to the room. Patient relays this information to Dr. Alva. He states he will order Decadron to be given here today in clinic and that patient should continue her home dosing of 2 mg every 6 hours at home. He instructs the patient that if she is unable to keep Decadron down she needs to notify him as she will need to be admitted to the hospital to receive the medication IV. 1040 BP elevated 189/86. Dr. Alva present in room and aware. No new orders. Patient states that she took her BP medication this AM. Transportation home verified: yes, with . Is patient on immunotherapy? No. ID verified with patient with two identifiers, name and birthdate. Tiarra Sutherland RN Christina Macias assessed for the following: Does Christina Macias have any pain? Yes: LOCATION: mild headache. Dr. Alva present in room with patient. No new orders. Does Christina Macias have: Difficulty chewing and/or swallowing: no Fall risk assessment: At risk due to: use of other ambulatory device wheelchair and cane Concerns about physical or emotional abuse: no Allergies reviewed with patient, yes. Patient's Age: 69 Menstruation Status: Post Menopausal 1040 Patient assisted to treatment room. Gamma Knife SRS begun. 1140 Gamma Knife Stereotactic Radiosurgery Completed. 1145 Decadron 4 mg po given with applesauce per order of Dr. Milagro MD. 1150 Discharge instructions given to patient. Instructions reviewed by this nurse and patient verbalized understanding. I reviewed with family including that patient should resume Decadron 2 mg po every six hours at 6 PM tonight. Instructed that if patient continues to have emesis with taking Decadron they are to contact Dr. Milagro MD to notify him. They verbalized understanding. Pt then discharged. Tiarra Sutherland RN [facility] 07-28-2025 Note HNO ID: [id number] Author: PROVIDER, [facility], ? Service: ? 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 DELIVERED DOSE: 1. 1800.0 cGy was prescribed to the 55% isodose line, which covered 100% of the target. The plan utilized 8 shots using 16 mm and 8 mm sectors. GTV volume = 5 cm3. Maximum dose = 3270.0 cGy. Maximum diameter = 2.3 cm. MD/PD = 1.817. PIV/CTV = 1.326. Gradient Index = 3.8. Number of Fractions = 1. 2. 2400.0 cGy was prescribed to the 75% isodose line, which covered 100% of the target. The plan utilized 5 shots using 16 mm and composite sectors. GTV volume = 1.61 cm3. Maximum dose = 3210.0 cGy. Maximum diameter = 1.6 cm. MD/PD = 1.337. PIV/CTV = 1.292. Gradient Index = 2.9. Number of Fractions = 1. 3. 2400.0 cGy was prescribed to the 76% isodose line, which covered 100% of the target. The plan utilized 12 shots using composite sector. GTV volume = 1.04 cm3. Maximum dose = 3160.0 cGy. Maximum diameter = 1.4 cm. MD/PD = 1.317. PIV/CTV = 1.26. Gradient Index = 4.2. Number of Fractions = 1. 3 separate treatment plans were devised. ELAPSED TREATMENT TIME: 60 minutes (one session). TOLERANCE: Excellent. RESPONSE: To be evaluated. REMARKS: The patient will return for additional staged SRS. Authorized user was present during the entire treatment. The total treatment time was within 10% of the written directive. Staff Physician Abel De Jesus M.D./ 54:02 PM Electronically Signed cc: Andrew Billingsley - [facility] NSGY [facility] 07-28-2025 Note HNO ID: [id number] Author: PROVIDER, [facility], ? Service: ? 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 PROCEDURE: Under my direct supervision the patient was set up on the treatment table and all treatment parameters were verified, including patient identity and treatment site. CBCT obtained which was co-registered using the treatment planning system. Adaptive replan was verified and approved. Once the beam was turned on, the patient position and target location were continuously monitored during delivery of the SRS using infrared tracking. At all points of decision-making with regard to patient setup, I conferred with the clinical medical transcriptionist to approve the final setup. I was available throughout the SRS treatment to manage the execution of the treatment and make real-time adjustments in response to patient motion, target movement, or equipment issues to ensure accuracy and safety. The patient was evaluated by me after treatment and was discharged in stable condition. TREATMENT VOLUMES: GTV (Defined by neurosurgeon) PHYSICIST NAME: Calvin Bond, PhD INTERVENTIONS: None ASSESSMENT/PLAN: Patient tolerated procedure well. We will continue as planned. Electronically Signed ABEL DE JESUS M.D. 1:43 AM [facility] 07-27-2025 Note HNO ID: [id number] Author: SAHIL ZEPEDA, RT(R) Service: Radiology Author Type: Technologist Type: Progress Notes Filed: 07/27/2025 07:53 Note Text: Radiology Service Progress Note PATIENT NAME: Christina Macias DATE OF SERVICE: July 27, 2025 TIME: 7:45 AM PATIENT IDENTITY VERIFICATION COMPLETED USING TWO (2) IDENTIFIERS: Name and Date of confirmed by patient verbally and Name and Date of confirmed by identification band. FALL SCREENING: Has the patient had 2 falls in the last year or 1 fall with injury or currently using an Ambulatory Assistive Device (Walker, Cane, Wheelchair, Crutches, etc.)? Yes, Patient High Risk for Falls What interventions were put in place to prevent falls during this visit? Offered Assistance with Transfers/Clothing and Increased Observations by Caregivers PATIENT GENDER DATA: Assigned female at . status: : No status: NO. PATIENT RELEVANT IMPLANT DATA REVIEWED: Yes PATIENT PRESENTS WITH AN IMPLANTABLE OR ATTACHED NIGHT CLERK: No RADIOLOGY DEPARTMENT: CT; Exam(s) Completed: Brain . Anesthesia: No PERIPHERAL IV DATA: Not applicable SIGNED BY: RT Ben(R) July 27, 2025 7:45 AM [facility] 07-27-2025 Note HNO ID: [id number] Author: LILIA ROWELL RT(Kassie) Service: Radiology Author Type: Technologist Type: Progress Notes Filed: 07/27/2025 07:30 Note Text: Radiology Service Progress Note PATIENT NAME: Christina Macias DATE OF SERVICE: July 27, 2025 TIME: 7:30 AM PATIENT IDENTITY VERIFICATION COMPLETED USING TWO (2) IDENTIFIERS: Name and Date of confirmed by patient verbally. FALL SCREENING: Has the patient had 2 falls in the last year or 1 fall with injury or currently using an Ambulatory Assistive Device (Walker, Cane, Wheelchair, Crutches, etc.)? No PATIENT GENDER DATA: Assigned female at . status: : No status: NO. PATIENT RELEVANT IMPLANT DATA REVIEWED: Yes PATIENT PRESENTS WITH AN IMPLANTABLE OR ATTACHED NIGHT CLERK: No RADIOLOGY DEPARTMENT: MR; Exam(s) Completed: Head: Localization. Anesthesia: No. Aromatherapy Administered: No PERIPHERAL IV DATA: Site assessment: Clean,Dry and Intact, Site disposition Discontinued SIGNED BY: RT Eboni(R) July 27, 2025 7:30 AM [facility] 07-27-2025 Note HNO ID: [id number] Author: ARPITA MORRISSEY RN Service: Nursing Author Type: Registered Nurse Type: Progress Notes Filed: 07/27/2025 07:10 Note Text: Radiology Service Progress Note DATE OF SERVICE: July 27, 2025 TIME: 7:08 AM PATIENT WEIGHT: 151LBS PATIENT IDENTITY VERIFICATION COMPLETED USING TWO (2) STANDARD IDENTIFIERS: Name and Date of confirmed by patient verbally and Name and Date of confirmed by identification band. FALL SCREENING: Has the patient had 2 falls in the last year or 1 fall with injury or currently using an Ambulatory Assistive Device (Walker, Cane, Wheelchair, Crutches, etc.)? No PATIENT GENDER DATA: Assigned female at . status: : No status: NO. ALLERGIES: Reviewed and unchanged CONTRAST ALLERGY: No EXAM: MRI - CONTRAST TYPE: GROUP II IV SITE: Ambulatory: A peripheral IV was started in the Left forearm with a Angio cath: 22 gauge. and A Saline lock was inserted per protocol IV SITE APPEARANCE: Clean,Dry and Intact SIGNATURE: Arpita Morrissey RN PATIENT NAME: Christina Macias DATE: July 27, 2025 TIME: 7:08 AM [facility] 07-27-2025 Note HNO ID: [id number] Author: LYNNE MORENO RN Service: ? Author Type: Registered Nurse Type: Progress Notes Filed: 07/27/2025 14:48 Note Text: July 27, 2025 0633 Christina arrived to Gamma Knife with: Davey roth. Transportation home verified: yes, with friendTrini. Christina here for today for imaging, mask fitting, pre-planning for Icon mask based Gamma Knife Stereotactic Radiosurgery by radiation therapist, and single session mask based treatment. ID verified with patient with two identifiers, name and birthdate. Lynne Moreno RN Christina assessed for the following: Does Christina have any pain? No. Pain 0 on scale of 0-10 Does Christina have: Difficulty chewing and/or swallowing: no Fall risk assessment: At risk due to: use of other ambulatory device cane Concerns about physical or emotional abuse: no Allergies reviewed with patient, yes. [id number] Mask completed. To imaging for CT Scan and MRI. Christina Elisa Macias returned to department for treatment # 1 of 1. Is patient on immunotherapy? No. Patient's Age: 69 Menstruation Status: Post Menopausal, patient does not meet criteria for HCG testing. 1231 Decadron 10 mg po given prior to Gamma Knife SRS per order of Dr. Milagro MD. 1315 Patient assisted to treatment room. Gamma Knife SRS begun. 1444 Gamma Knife Stereotactic Radiosurgery Completed. 1447 Discharge instructions given to patient. Instructions reviewed by this nurse and patient verbalized an understanding. Pt instructed she is to return tomorrow for additional treatment. Pt then discharged. Lynne Moreno RN [facility] 07-27-2025 Note HNO ID: [id number] Author: PROVIDER, [facility], ? Service: ? 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 AREA:Brain PATIENT POSITION: Supine CONTRAST: None PROTOCOL: None FIXATION DEVICE: In order to achieve accurate and reproducible treatments, the patient is immobilized with custom 3-point mask and mold care. PROCEDURE: A time-out was conducted and recorded by the therapist. Patient was simulated on the Gamma Knife for SRS therapy. ASSESSMENT/PLAN: Patient tolerated simulation procedure well. Treatments will be initiated after treatment planning. Electronically Signed Abel De Jesus M.D. 52:07 PM [facility] 07-27-2025 Note HNO ID: [id number] Author: PROVIDER, [facility], ? Service: ? Author Type: Physician Type: Progress Notes Filed: 07/27/2025 14:10 Note Text: CHRISTINA MACIAS [id number] 07/27/2025 [facility] Department of Radiation Oncology [facility] RADIATION ONCOLOGY GAMMA KNIFE TREATMENT PLANNING NOTE For reasons stated in the consult note, CHRISTINA MACIAS is a candidate for palliative radiosurgery. Based on review and interpretation of the relevant diagnostic studies together with the exam findings, CHRISTINA MACIAS was imaged on 07/27/2025. The CT and MRI imaging was fused and checked in Gamma Plan by the radiation oncologist/neurosurgeon and physicist and the target volume to be treated as well as the critical normal structure(s) were delineated. After participating in the treatment planning process with neurosurgery and medical physics, I approved the best plan to deliver my prescribed course of radiosurgery. The target tissue was planned using Gamma Plan to allow for the best isodose distribution and dosimetry/DVH. The dose to normal tissue and target tissue was confirmed upon review of the calculated dose. A completed summary of this plan dated 07/27/2025 incorporated herein by reference includes dose, isodose distribution and DVH. Electronically Signed Abel De Jesus M.D. / ERROL 52:10 PM [facility] 07-27-2025 Note HNO ID: [id number] Author: PROVIDER, [facility], ? Service: ? 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 PROCEDURE: Under my direct supervision the patient was set up on the treatment table and all treatment parameters were verified, including patient identity and treatment site. CBCT obtained which was co-registered using the treatment planning system. Adaptive replan was verified and approved. Once the beam was turned on, the patient position and target location were continuously monitored during delivery of the SRS using infrared tracking. At all points of decision-making with regard to patient setup, I conferred with the clinical medical transcriptionist to approve the final setup. I was available throughout the SRS treatment to manage the execution of the treatment and make real-time adjustments in response to patient motion, target movement, or equipment issues to ensure accuracy and safety. The patient was evaluated by me after treatment and was discharged in stable condition. TREATMENT VOLUMES: GTV (Defined by neurosurgeon) PHYSICIST NAME: Calvin Bond, PhD INTERVENTIONS: None ASSESSMENT/PLAN: Patient tolerated procedure well. We will continue as planned. Electronically Signed ABEL DE JESUS M.D. 1:22 AM [facility] 07-27-2025 Note HNO ID: [id number] Author: PROVIDER, [facility], ? Service: ? 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 DELIVERED DOSE: 1. 1800.0 cGy was prescribed to the 61% isodose line, which covered 100% of the target. The plan utilized 19 shots using composite sector. GTV volume = 3.21 cm3. Maximum dose = 2950.0 cGy. Maximum diameter = 2.1 cm. MD/PD = 1.639. PIV/CTV = 1.321. Gradient Index = 2.7. Number of Fractions = 1. 2. 1800.0 cGy was prescribed to the 76% isodose line, which covered 100% of the target. The plan utilized 12 shots using 4 mm and composite sectors. GTV volume = 1.43 cm3. Maximum dose = 2460.0 cGy. Maximum diameter = 1.7 cm. MD/PD = 1.367. PIV/CTV = 1.608. Gradient Index = 4.1. Number of Fractions = 1. 3. 1500.0 cGy was prescribed to the 65% isodose line, which covered 100% of the target. The plan utilized 36 shots using 16 mm, 4 mm, composite sectors. GTV volume = 7.39 cm3. Maximum dose = 2330.0 cGy. Maximum diameter = 3.2 cm. MD/PD = 1.553. PIV/CTV = 1.407. Gradient Index = 3. Number of Fractions = 1. 3 separate treatment plans were devised. ELAPSED TREATMENT TIME: 89 minutes (one session). TIME IN 13:15 / TIME OUT 14:44 TOLERANCE: Excellent. RESPONSE: To be evaluated. REMARKS: The patient will return for additional staged SRS. Authorized user was present during the entire treatment. The total treatment time was within 10% of the written directive. Staff Physician Abel De Jesus M.D./ 511:34 AM Electronically Signed cc: Andrew Billingsley - PCP Des Alva - DIMPLE [facility] 07-21-2025 Telephone encounter Note Spoke with the pt and reviewed the GK plan for 07/27. Went over the plan for the day of GK, directions and where to report. Made sure to remind pt to bring any medications pt may need as they will be here the majority of the day. Additionally, let them know the GK team will call them the day before with arrival time. Pt verbalized understanding. Hernandez Rosado RN BSN Sustainability Coordinator [facility] Work Phone: 07-21-2025 Miscellaneous Notes Spoke with the pt and reviewed the GK plan for 07/27. Went over the plan for the day of GK, directions and where to report. Made sure to remind pt to bring any medications pt may need as they will be here the majority of the day. Additionally, let them know the GK team will call them the day before with arrival time. Pt verbalized understanding. Hernandez Rosado RN BSN Sustainability Coordinator Date of 07/27/25--mask Milagro/Liza squamous cell mets PRE tx MRI and CT [place] please schedule post ops documented in this encounter [facility] 07-20-2025 Telephone encounter Note Scheduled with patient [facility] Work Phone: 07-20-2025 Miscellaneous Notes Scheduled with patient SPOKE W PT SHE WILL BE CALLING BACK SOON TO SCHEDULE. Soledad Perry DX: metastatic lung cancer. Please schedule with Dr. Celis. lCaudette Klein LPN Patient called stating that Dr. Alva is referring her to Medical Oncology. Unable to see order/referral. Please review and advise. documented in this encounter [facility] 07-20-2025 History of Presen t illness Narrative Radiation Oncology - New Patient/Consult Note I have communicated my name and active licensure. The patient's identity and physical location were verified at the time of this visit. Either the patient or their legal manufacturers representative has been informed of the risks and benefits of -- and alternatives to -- treatment through a remote evaluation and consents to proceed with the evaluation remotely. Visit was conducted via [employer] Patient Location: Home PATIENT NAME: Christina Macias PATIENT REQUESTING PROVIDER: Des Alva MD. 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 HPI: The patient is a 69 year old, right handed female who presents with above diagnosis, for an opinion regarding the role of radiation therapy in the management of the patient's disease. Final recommendations will be communicated back to the requesting physician by way of the shared medical record, or letter to requesting physician via [place] mail. Christina Macias is a 69 year old female who presented to the ED on 07/11/25 due to feeling off balance. She had a CT brain scan at that time which showed low-density in the R temporal and occipital lobe and R cerebellar hemisphere suggestive of vasogenic edema from underlying masses with mild subfalcine herniation of 6.[address] CAP revealed R lung mass, thoracic lymphadenopathy, and multiple liver lesions. MRI Brain revealed 6 peripherally enhancing brain lesions with surrounding vasogenic edema, compatible with metastatic disease. Patient then underwent IR guided liver biopsy 07/13 which revealed metastatic squamous cell carcinoma. She was evaluated by NSGY on the inpatient side and determined that her lesions were not large enough to warrant surgical resection. She then met with Dr. Alva in the outpatient setting to discuss GK therapy. She has been referred to our department for consideration of Gamma Knife therapy to the metastatic brain lesions. Today patient is reporting improvement in her symptoms with the addition of steroids. She is currently on 2 mg twice a day of decadron, with plans to taper off over the next week. She is no longer feeling dizzy or off balance, but does note that her ear feels full when she is in the shower. She is setting up with medical oncology in [place]. She has not started any systemic therapy at this time. ALLERGIES No Known Allergies MEDICATIONS: ascorbic acid (CHEWABLE VITAMIN C ORAL) Take by mouth. VITAMIN E-400 ORAL Take by mouth. cholecalciferol (VITAMIN D) 1,000 unit tab tablet Take 1,000 Units by mouth once daily. iv contrast (will be provided with radiology test) MRI Brain Inject, intravenously, once for 1 dose.No IV access, insert saline lock prior to beginning of sedation, infusion, injection of imaging exam.Discontinue saline lock post exam. If Pt. has a central line or IVAD, may access for administration according to line specific nursing protocol.Once exam is complete flush line and de-access according to line specific nursing protocol in the MR contrast administration guidelines link iv contrast (will be provided with radiology test) MRI Brain Localization Inject, intravenously, once for 1 dose.No IV access, insert saline lock prior to beginning of sedation, infusion, injection of imaging exam.Discontinue saline lock post exam. If Pt. has a central line or IVAD, may access for administration according to line specific nursing protocol.Once exam is complete flush line and de-access according to line specific nursing protocol in the MR contrast administration guidelines link metoprolol succinate ER (TOPROL XL) 25 mg 24 hr tablet Take 1 tablet by mouth daily at bedtime. dexAMETHasone (DECADRON) 2 mg tablet Take 1 tablet by mouth two times a day with meals for 14 days. Until follow up with Neurosurgery. Call them if you have not followed up yet and need more. chlorthalidone (HYGROTON) 25 mg tablet Take 1 tablet by mouth once daily. cetirizine (ZYRTEC) 10 mg tablet Take 1 tablet by mouth once daily. calcium, elemental, tab Take 1 tablet by mouth once daily. Lactobacillus acidophilus 10 billion cell cap Take once daily multivitamins(DAILY VITAMIN TAB) Take one(1) tablet daily. PAST MEDICAL HISTORY Diagnosis Date Diverticulosis of colon (without mention of hemorrhage) colonoscopy 08/14 Essential hypertension, benign IBS (irritable bowel syndrome) Pneumonia 08/2014 Prior radiation therapy, collagen vascular disease, or inflammatory bowel disease: No Any implanted or external electric devices? No status: Post-menopausal. PAST SURGICAL HISTORY Procedure Laterality Date COLONOSCOPY 06/2010 DILATION & CURETTAGE DX&/THER NONOBSTETRIC Dilation & curettage LAPAROSCOPY SURG CHOLECYSTECTOMY 09/2009 PAST SURGICAL HISTORY OF 5064-2579 bilat knee arthroscopic TONSILLECTOMY & ADENOIDECTOMY <AGE 10 Tonsil/adenoidectomy FAMILY HISTORY Problem Relation Age of Onset Ischemic Heart Disease Father age 46 Cancer Mother lung Ischemic Heart Disease Other nephew SOCIAL HISTORY: Marital Status: Children: 3 on side and 3 on her side Occupation: [email or web address] Working: Retired Tobacco Use: Former - quit in 1997 Alcohol Use:denies Lives in [place], [place] COMPLETE REVIEW OF SYSTEMS: GENERAL: feeling well without fatigue, no recent change in weight Neuro detailed: Headache: No Pain: n/a Pain interventions: none required Fatigue: none Decreased visual acuity: No Diplopia: No Visual Field Changes: No Tinnitus: No Hearing loss: none Dysphagia: No Decreased balance: none Arm/leg numbness: No Focal weakness: No Limb discoordination: No Disorientation: none Decreased concentration: none Memory changes: none Word finding difficulty: none Dysarthria: none Seizures: No PHYSICAL EXAM: VS: There were no vitals taken for this visit. - virtual visit KPS: 90 Neuro function score (NFS): NFS 0 (No neurologic symptoms; fully active at home/work without assistance) General Appearance: Alert and oriented. No acute distress. RADIOLOGY/LABORATORY DATA: MRI Brain 07/11/25 IMPRESSION: 1. Numerous peripherally enhancing brain lesions with surrounding vasogenic edema, most compatible with metastatic disease. 2. Mass effect is greatest in the right temporal/parietal region and right posterior fossa, with leftward midline shift measuring up to approximately 0.5 cm at the septum pellucidum. Mass effect on the ventricular system as detailed, without evidence of ventricular obstruction. 3. Right mastoid effusion with ill-defined enhancement along the right petrous ridge, indeterminate. Consider dedicated temporal bone CT or MRI on a nonemergent basis. CT Chest 07/12/25 IMPRESSION: 1. Mass lesion centrally in the right upper lobe obstructing the right upper lobe bronchus. Suspect primary lung neoplasm. 2. Multiple tiny nodules scattered throughout the aerated right upper lobe. Unclear whether these represent metastatic lesions or inflammatory/infectious lesions. 3. Lymph node enlargement in the mediastinum and right supraclavicular region most suspicious for metastatic lymph nodes. 4. Bony destruction of T11 most consistent with metastatic disease. CT AP 07/12/25 IMPRESSION: 1. Several lesions in the liver most suspicious for metastatic disease. 2. Right adrenal mass. The lesion has increased since 2019 study. Unclear if it represents increasing size of benign adrenal mass or possibly metastatic disease superimposed upon underlying right adrenal lesion. 3. Lytic lesion inferior aspect of L3 vertebral body. Metastatic disease is the top consideration. 4. Dilated extrahepatic common bile duct. Most likely related to prior cholecystectomy. Liver Biopsy 07/13/25 FINAL DIAGNOSIS Liver, biopsies: - Metastatic squamous cell carcinoma. See comment. Diagnosis Comment The squamous cell carcinoma demonstrates positivity for p40 on immunostaining and is negative for TTF-1 and liver marker, HepPar 1. The paraffin block is forwarded to [facility] for PD-L1 determination. The case was also reviewed by Drs. Tyler Reyes and Yasmine Estrada. Benign liver parenchyma demonstrates nonspecific triaditis and glycogenation. 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 Given her asymptomatic status, number of lesions, and size of lesions, we discussed and recommended Gamma Knife SRS to these lesions. We discussed that treatment could be single fraction, fractionated, or staged based on MRI on the day of treatment. Mask based immobilization will be used. Radiosurgery will be done using the Gamma Knife system, which uses up to 192 beams of radiation. A head CT and brain MRI will be performed the day of the procedure. The images will be co registered for target contouring and treatment planning. The CT scan is necessary to correct for the spatial distortion of the MRI. Both scans will be evaluated by a radiologist and the results will be discussed with the patient. We explained that in some cases, the high resolution MRI will reveal several additional brain metastases, which may warrant management with whole brain radiation as opposed to SRS. We outlined the toxicities of SRS which include, but are not limited to dermatitis, permanent or temporary alopecia, fatigue, headache, seizures, or worsening of current symptoms due to brain swelling. Potential late term side effects include brain injury, radiation necrosis (which may necessitate surgical intervention), cranial nerve dysfunction, persistent fatigue, neurocognitive decline and rarely secondary malignancy. Patient questions answered to her satisfaction. She agrees with the plan to move forward with Gamma Knife stereotactic radiosurgery for the treatment for her brain metastases. Resident: Lynne Laughlin MD Radiation Oncology - PGY-2 STAFF ADDENDUM I saw and evaluated the patient. I personally obtained the kwon and critical portions of the history and physical exam. I reviewed the resident's documentation and discussed the patient with the resident. I agree with the resident's medical decision making as documented in the resident's note. 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 She has 6-7 lesions, the largest being just shy of 2 cm. I recommend GKRS in the management of her brain metastases. If the largest is >2 cm, that lesion would need to be staged. Also, she may need to be staged for number. This will be determined on the day of GKRS. R/B/A/P/C of GKRS were discussed. She is interested in proceeding. She is scheduled for treatment 07/27/25. Sheree De Jesus MD cc: Andrew Billingsley - PCP Des Alva - NSGY documented in this encounter [facility] 07-20-2025 Note HNO ID: [id number] Author: SHEREE DE JESUS MD Service: ? Author Type: Physician Type: Progress Notes Filed: 07/20/2025 16:54 Note Text: Radiation Oncology - New Patient/Consult Note I have communicated my name and active licensure. The patient's identity and physical location were verified at the time of this visit. Either the patient or their legal manufacturers representative has been informed of the risks and benefits of -- and alternatives to -- treatment through a remote evaluation and consents to proceed with the evaluation remotely. Visit was conducted via [employer] Patient Location: Home PATIENT NAME: Christina Macias PATIENT REQUESTING PROVIDER: Des Alva MD. 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 HPI: The patient is a 69 year old, right handed female who presents with above diagnosis, for an opinion regarding the role of radiation therapy in the management of the patient's disease. Final recommendations will be communicated back to the requesting physician by way of the shared medical record, or letter to requesting physician via US mail. Christina Macias is a 69 year old female who presented to the ED on 07/11/25 due to feeling off balance. She had a CT brain scan at that time which showed low-density in the R temporal and occipital lobe and R cerebellar hemisphere suggestive of vasogenic edema from underlying masses with mild subfalcine herniation of 6.[address] CAP revealed R lung mass, thoracic lymphadenopathy, and multiple liver lesions. MRI Brain revealed 6 peripherally enhancing brain lesions with surrounding vasogenic edema, compatible with metastatic disease. Patient then underwent IR guided liver biopsy 07/13 which revealed metastatic squamous cell carcinoma. She was evaluated by NSGY on the inpatient side and determined that her lesions were not large enough to warrant surgical resection. She then met with Dr. Alva in the outpatient setting to discuss GK therapy. She has been referred to our department for consideration of Gamma Knife therapy to the metastatic brain lesions. Today patient is reporting improvement in her symptoms with the addition of steroids. She is currently on 2 mg twice a day of decadron, with plans to taper off over the next week. She is no longer feeling dizzy or off balance, but does note that her ear feels full when she is in the shower. She is setting up with medical oncology in [place]. She has not started any systemic therapy at this time. ALLERGIES No Known Allergies MEDICATIONS: ascorbic acid (CHEWABLE VITAMIN C ORAL) Take by mouth. VITAMIN E-400 ORAL Take by mouth. cholecalciferol (VITAMIN D) 1,000 unit tab tablet Take 1,000 Units by mouth once daily. iv contrast (will be provided with radiology test) MRI Brain Inject, intravenously, once for 1 dose.No IV access, insert saline lock prior to beginning of sedation, infusion, injection of imaging exam.Discontinue saline lock post exam. If Pt. has a central line or IVAD, may access for administration according to line specific nursing protocol.Once exam is complete flush line and de-access according to line specific nursing protocol in the MR contrast administration guidelines link iv contrast (will be provided with radiology test) MRI Brain Localization Inject, intravenously, once for 1 dose.No IV access, insert saline lock prior to beginning of sedation, infusion, injection of imaging exam.Discontinue saline lock post exam. If Pt. has a central line or IVAD, may access for administration according to line specific nursing protocol.Once exam is complete flush line and de-access according to line specific nursing protocol in the MR contrast administration guidelines link metoprolol succinate ER (TOPROL XL) 25 mg 24 hr tablet Take 1 tablet by mouth daily at bedtime. dexAMETHasone (DECADRON) 2 mg tablet Take 1 tablet by mouth two times a day with meals for 14 days. Until follow up with Neurosurgery. Call them if you have not followed up yet and need more. chlorthalidone (HYGROTON) 25 mg tablet Take 1 tablet by mouth once daily. cetirizine (ZYRTEC) 10 mg tablet Take 1 tablet by mouth once daily. calcium, elemental, tab Take 1 tablet by mouth once daily. Lactobacillus acidophilus 10 billion cell cap Take once daily multivitamins(DAILY VITAMIN TAB) Take one(1) tablet daily. PAST MEDICAL HISTORY Diagnosis Date Diverticulosis of colon (without mention of hemorrhage) colonoscopy 08/14 Essential hypertension, benign IBS (irritable bowel syndrome) Pneumonia 08/2014 Prior radiation therapy, collagen vascular disease, or inflammatory bowel disease: No Any implanted or external electric devices? No status: Post-menopausal. PAST SURGICAL HISTORY Procedure Laterality Date COLONOSCOPY 06/2010 DILATION AND CURETTAGE DXAND/T (more content not included)... [facility] 07-20-2025 Telephone encounter Note SPOKE W PT SHE WILL BE CALLING BACK SOON TO SCHEDULE. Soledad Perry [facility] 07-20-2025 Telephone encounter Note DX: metastatic lung cancer. Please schedule with Dr. Celis. Claudette Klein LPN [facility] 07-20-2025 Telephone encounter Note Patient called stating that Dr. Alva is referring her to Medical Oncology. Unable to see order/referral. Please review and advise. [facility] 07-19-2025 Telephone encounter Note Date of 07/27/25--mask Milagro/Liza squamous cell mets PRE tx MRI and CT [place] please schedule post ops [facility] 07-19-2025 History of Presen t illness Narrative NEUROSURGERY FOLLOW UP OFFICE NOTE Dr. Des Alva MD, FACS Date of visit: July 19, 2025 Patient Name: Mrs.Patricia Elisa Macias Date of : 1955 Current Age: [age] year old Sex: female MRN/E# [id number] Last Office Visit: Hospital follow up CHIEF COMPLAINT: Patient presents with: Established Patient SUBJECTIVE: The patient presents as a hospital follow up with imaging (MRI B) for evaluation. This is a 69 year old female with a PMHx of HTN, IBS who was seen for consult at [facility] on 07/12/[address] Martell. Patient presented with complaints of dizziness, vertigo and ear pain. CT was completed and revealed several areas of vasogenic edema concerning for metastasis. MRI was completed and showed at least 6 enhancing lesions, thought likely to be metastatic in nature. Further workup showed a right sided lung mass, multiple liver lesions and an adrenal mass requiring continued work up. No emergent neurosurgical intervention was indicated. It was discussed that she would likely be a candidate for Gamma Knife Stereotactic Radiosurgery once a definitive diagnosis was made. Heme/onc was consulted. She underwent a lever biopsy on 07/13/25 with pathology demonstrating; FINAL DIAGNOSIS Liver, biopsies: - Metastatic squamous cell carcinoma. See comment. Recommendation was to follow up with Neurosurgery once discharged for plan of care. Today she states she is overall doing well. She denies headache, visual changes, speech deficits, seizure activity, motor or sensory deficits. She presents for image review, evaluation and plan of care. MEDICATIONS: Keppra: No Dexamethasone: 2 mg BID SYMPTOMS: None SURGICAL RISK: Smoker: Former - quit 11/10/1997 Diabetic: No Anticoagulants / Antiplatelets: ASA Occupation: [employer] PREVIOUS NEUROSURGERY: None ONCOLOGY TREATMENT TEAM: Primary Cancer: Metastatic squamous cell carcinoma Hematology/Oncology: Dr. Taras Martinez (consult at [facility]) PAIN EVALUATION No data found in the last 1 encounters. PAST MEDICAL HISTORY Diagnosis Date Diverticulosis of colon (without mention of hemorrhage) colonoscopy 08/14 Essential hypertension, benign IBS (irritable bowel syndrome) Pneumonia 08/2014 PAST SURGICAL HISTORY Procedure Laterality Date COLONOSCOPY 06/2010 DILATION & CURETTAGE DX&/THER NONOBSTETRIC Dilation & curettage LAPAROSCOPY SURG CHOLECYSTECTOMY 09/2009 PAST SURGICAL HISTORY OF 7085-6002 bilat knee arthroscopic TONSILLECTOMY & ADENOIDECTOMY <AGE 10 Tonsil/adenoidectomy FAMILY HISTORY Problem Relation Age of Onset Ischemic Heart Disease Father age 46 Cancer Mother lung Ischemic Heart Disease Other nephew ALLERGIES No Known Allergies Current Outpatient Medications Medication Sig Dispense Refill ascorbic acid (CHEWABLE VITAMIN C ORAL) Take by mouth. VITAMIN E-400 ORAL Take by mouth. cholecalciferol (VITAMIN D) 1,000 unit tab tablet Take 1,000 Units by mouth once daily. metoprolol succinate ER (TOPROL XL) 25 mg 24 hr tablet Take 1 tablet by mouth daily at bedtime. 90 tablet dexAMETHasone (DECADRON) 2 mg tablet Take 1 tablet by mouth two times a day with meals for 14 days. Until follow up with Neurosurgery. Call them if you have not followed up yet and need more. 28 tablet 0 chlorthalidone (HYGROTON) 25 mg tablet Take 1 tablet by mouth once daily. 90 tablet 1 cetirizine (ZYRTEC) 10 mg tablet Take 1 tablet by mouth once daily. calcium, elemental, tab Take 1 tablet by mouth once daily. Lactobacillus acidophilus 10 billion cell cap Take once daily 0 multivitamins(DAILY VITAMIN TAB) Take one(1) tablet daily. 0 No current facility-administered medications for this visit. REVIEW OF SYSTEMS: Review of Systems Constitutional: Negative for chills, diaphoresis (Negative for night sweats.) and fever. HENT: Negative for ear discharge and rhinorrhea. Eyes: Negative for discharge. Respiratory: Negative for cough, shortness of breath and wheezing. Cardiovascular: Negative for chest pain, palpitations and leg swelling. Gastrointestinal: Negative for constipation, diarrhea, nausea and vomiting. Endocrine: Negative for cold intolerance and heat intolerance. Genitourinary: Negative for frequency. Negative for urinary incontinence and urinary retention. Musculoskeletal: Negative for back pain, joint swelling, myalgias and neck pain. Skin: Negative for rash (Negative for hives and skin lesions.). Allergic/Immunologic: Negative for environmental allergies and food allergies. Negative for contact allergy, seasonal allergies. Neurological: Negative for dizziness, seizures, syncope, weakness, light-headedness, numbness (Negative for numbness in extremities.) and headaches. Hematological: Does not bruise/bleed easily. Psychiatric/Behavioral: The patient is not nervous/anxious. Negative for depression. OBJECTIVE: BP 174/82 Pulse 71 Resp 16 Ht 5' 6 (1.68m) Wt 152 lb 8.9 oz (69.2kg) SpO2 98% BMI 24.64 kg/(m^2). PHYSICAL EXAM: Mental State : Alert. Attention span and concentration normal for patient's age. Speech normal, fluent. No receptive or expressive speech deficit. Recent and remote memory normal. Orientation : Oriented to person, place and time. Higher Cortical Function : Intact speech and language. Comprehension normal. Fund of knowledge intact for pt level of education. Cranial Nerves : II: No visual field cut, no blurring. Makes and sustains eye contact. III, IV, : No double vision or lid drooping. Pupils equal and reactive to light. Extraocular muscles intact. No nystagmus. V: Normal sensation on the face, normal jaw movements. VII: No paresis on either side. VIII: No gross hearing deficit IX: Good and equal shoulder shrugs. XII: Tongue midline, no fasciculations. Sensory: SILT. Normal Sensation in bilateral upper and bilateral lower extremities to touch and noxious stimuli. Motor: Normal muscle tone and bulk. No spasticity, tremor or uncontrollable movements. Strength: Upper Extremities : R L Deltoid 5/5 5/5 Biceps 5/5 5/5 Triceps 5/5 5/5 Wrist Ext 5/5 5/5 Wrist Flx 5/5 5/5 Hand Int 5/5 5/5 Lower Extremities : Hip Flexors 5/5 5/5 Hip Extensors 5/5 5/5 Hip Abductors 5/5 5/5 Straight leg Neg Neg Ankle dorsiflex 5/5 5/5 Ankle Plantar 5/5 5/5 Cerebellar Function : Normal finger to nose. Normal rapid alternating movements. No ataxia. Gait and Station: Mildly compensated gait. Utilizing can as an assistive device. IMAGING: MRI Brain WO/W IVCON performed on 07/11/25 demonstrates: IMPRESSION: 1. Numerous peripherally enhancing brain lesions with surrounding vasogenic edema, most compatible with metastatic disease. 2. Mass effect is greatest in the right temporal/parietal region and right posterior fossa, with leftward midline shift measuring up to approximately 0.5 cm at the septum pellucidum. Mass effect on the ventricular system as detailed, without evidence of ventricular obstruction. 3. Right mastoid effusion with ill-defined enhancement along the right petrous ridge, indeterminate. Consider dedicated temporal bone CT or MRI on a nonemergent basis. ASSESSMENT/PLAN: 1. 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) - ICD9: 198.3, ICD10: C79.31 Patient has metastatic brain disease. There are multiple lesions including the cerebellum and both hemispheres. I just read the report of the pathology of her liver biopsy lesion which was consistent with squamous cell carcinoma. I saw the patient today with her and I discussed the findings with them. I discussed the treatment of the multiple intracranial metastatic lesions with whole brain radiation and also stereotactic radiosurgery using gamma knife. Patient apparently has read about this all and decided she wants to have gamma knife done. She has established care with her oncologist in [place] but has not met him yet. I discussed gamma knife treatment for these multiple lesions including expectations risks and complications and alternatives. Patient wants to proceed. She presently is on 4 mg every 6 hours of Decadron. I will arrange her treatment as soon as possible using mask and having a CT scan and MRI scan done the same day. We will arrange also for radiation oncology consultation. Des Alva MD FOLLOW UP: Return for gamma knife at [facility]. Please Note: This note has been partially generated using [employer], a speech recognition software program, and may contain errors including punctuation, grammar, spelling, gender, and inappropriate words or phrases that pertain to the system. Recording using [employer] software for draft documentation of the visit was discussed with the patient/authorized manufacturers representative; all questions welcomed and answered. Patient/authorized manufacturers representative agreed to proceed documented in this encounter [facility] 07-19-2025 Note HNO ID: [id number] Author: DES ALVA MD Service: ? Author Type: Physician Type: Progress Notes Filed: 07/19/2025 14:46 Note Text: NEUROSURGERY FOLLOW UP OFFICE NOTE Dr. Des Alva MD, [facility] Date of visit: July 19, 2025 Patient Name: Mrs.Patricia Elisa Macias Date of : 1955 Current Age: [age] year old Sex: female MRN/E# [id number] Last Office Visit: Hospital follow up CHIEF COMPLAINT: Patient presents with: Established Patient SUBJECTIVE: The patient presents as a hospital follow up with imaging (MRI B) for evaluation. This is a 69 year old female with a PMHx of HTN, IBS who was seen for consult at [facility] on 07/12/[address] Martell. Patient presented with complaints of dizziness, vertigo and ear pain. CT was completed and revealed several areas of vasogenic edema concerning for metastasis. MRI was completed and showed at least 6 enhancing lesions, thought likely to be metastatic in nature. Further workup showed a right sided lung mass, multiple liver lesions and an adrenal mass requiring continued work up. No emergent neurosurgical intervention was indicated. It was discussed that she would likely be a candidate for Gamma Knife Stereotactic Radiosurgery once a definitive diagnosis was made. Heme/onc was consulted. She underwent a lever biopsy on 07/13/25 with pathology demonstrating; FINAL DIAGNOSIS Liver, biopsies: - Metastatic squamous cell carcinoma. See comment. Recommendation was to follow up with Neurosurgery once discharged for plan of care. Today she states she is overall doing well. She denies headache, visual changes, speech deficits, seizure activity, motor or sensory deficits. She presents for image review, evaluation and plan of care. MEDICATIONS: Keppra: No Dexamethasone: 2 mg BID SYMPTOMS: None SURGICAL RISK: Smoker: Former - quit 11/10/1997 Diabetic: No Anticoagulants / Antiplatelets: ASA Occupation: [employer] PREVIOUS NEUROSURGERY: None ONCOLOGY TREATMENT TEAM: Primary Cancer: Metastatic squamous cell carcinoma Hematology/Oncology: Dr. Taras Martinez (consult at [facility]) PAIN EVALUATION No data found in the last 1 encounters. PAST MEDICAL HISTORY Diagnosis Date Diverticulosis of colon (without mention of hemorrhage) colonoscopy 08/14 Essential hypertension, benign IBS (irritable bowel syndrome) Pneumonia 08/2014 PAST SURGICAL HISTORY Procedure Laterality Date COLONOSCOPY 06/2010 DILATION AND CURETTAGE DXAND/THER NONOBSTETRIC Dilation AND curettage LAPAROSCOPY SURG CHOLECYSTECTOMY 09/2009 PAST SURGICAL HISTORY OF [id number] bilat knee arthroscopic TONSILLECTOMY AND ADENOIDECTOMY Tonsil/adenoidectomy FAMILY HISTORY Problem Relation Age of Onset Ischemic Heart Disease Father age 46 Cancer Mother lung Ischemic Heart Disease Other nephew ALLERGIES No Known Allergies Current Outpatient Medications Medication Sig Dispense Refill ascorbic acid (CHEWABLE VITAMIN C ORAL) Take by mouth. VITAMIN E-400 ORAL Take by mouth. cholecalciferol (VITAMIN D) 1,000 unit tab tablet Take 1,000 Units by mouth once daily. metoprolol succinate ER (TOPROL XL) 25 mg 24 hr tablet Take 1 tablet by mouth daily at bedtime. 90 tablet dexAMETHasone (DECADRON) 2 mg tablet Take 1 tablet by mouth two times a day with meals for 14 days. Until follow up with Neurosurgery. Call them if you have not followed up yet and need more. 28 tablet 0 chlorthalidone (HYGROTON) 25 mg tablet Take 1 tablet by mouth once daily. 90 tablet 1 cetirizine (ZYRTEC) 10 mg tablet Take 1 tablet by mouth once daily. calcium, elemental, tab Take 1 tablet by mouth once daily. Lactobacillus acidophilus 10 billion cell cap Take once daily 0 multivitamins(DAILY VITAMIN TAB) Take one(1) tablet daily. 0 No current facility-administered medications for this visit. REVIEW OF SYSTEMS: Review of Systems Constitutional: Negative for chills, diaphoresis (Negative for night sweats.) and fever. HENT: Negative for ear discharge and rhinorrhea. Eyes: Negative for discharge. Respiratory: Negative for cough, shortness of breath and wheezing. Cardiovascular: Negative for chest pain, palpitations and leg swelling. Gastrointestinal: Negative for constipation, diarrhea, nausea and vomiting. Endocrine: Negative for cold intolerance and heat intolerance. Genitourinary: Negative for frequency. Negative for urinary incontinence and urinary retention. Musculoskeletal: Negative for back pain, joint swelling, myalgias and neck pain. Skin: Negative for rash (Negative for hives and skin lesions.). Allergic/Immunologic: Negative for environmental allergies and food allergies. Negative for contact allergy, seasonal allergies. Neurological: Negative for dizziness, seizures, syncope, weakness, light-headedness, numbness (Negative for numbness in extremities.) and headaches. Hematological: Does not bruise/bleed e (more content not included)... [facility] 07-15-2025 Telephone encounter Note Christina was seen in [facility] ED on 07/13/[address] Martell for dizziness and vertigo symptoms. CT showed several areas of vasogenic edema within the brain, concerning for metastasis. She had an MRI which showed 6 enhancing lesions, likely metastatic. None of these are large enough to warrant surgical resection. During her workup, she was found to have a right sided lung mass. This was likely the source of her metastatic disease. I spoke to this patient as she called in requesting a prescription for nausea medication. She advised that nausea has been an ongoing problem for her and that she has been given Zofran in the past from other doctors. I advised that since Dr. Alva had not seen her in the office, we would not be able to prescribe her medication, though she could reach out to the previous doctor who prescribed this for a refill. I attempted to have her stay on the phone for scheduling purposes since I saw Joseph had just attempted to call her but she stated that her could not drive and that she would be unable to follow up with [facility] given that she lives in [place]. I advised her that we could hold off on scheduling her if that was her wishes, and that she could contact the office at any time if she changes her mind and wishes to proceed. Per inpatient note from Dr. Martinez 07/14/2025, patient would follow up in [place] and a message was sent out to help her get scheduled. Aretha Chand RN [facility] 07-15-2025 Miscellaneous Notes Christina was seen in [facility] ED on 07/13/[address] Martell for dizziness and vertigo symptoms. CT showed several areas of vasogenic edema within the brain, concerning for metastasis. She had an MRI which showed 6 enhancing lesions, likely metastatic. None of these are large enough to warrant surgical resection. During her workup, she was found to have a right sided lung mass. This was likely the source of her metastatic disease. I spoke to this patient as she called in requesting a prescription for nausea medication. She advised that nausea has been an ongoing problem for her and that she has been given Zofran in the past from other doctors. I advised that since Dr. Alva had not seen her in the office, we would not be able to prescribe her medication, though she could reach out to the previous doctor who prescribed this for a refill. I attempted to have her stay on the phone for scheduling purposes since I saw Joseph had just attempted to call her but she stated that her could not drive and that she would be unable to follow up with [facility] given that she lives in [place]. I advised her that we could hold off on scheduling her if that was her wishes, and that she could contact the office at any time if she changes her mind and wishes to proceed. Per inpatient note from Dr. Martinez 07/14/2025, patient would follow up in [place] and a message was sent out to help her get scheduled. Aretha Chand RN documented in this encounter [facility] 07-15-2025 Telephone encounter Note Attempted to contact patient to schedule an appt with Dr. Alva for eval for Gamma. No answer. Left a VM requesting a return phone call. [facility] 07-15-2025 Miscellaneous Notes Attempted to contact patient to schedule an appt with Dr. Alva for eval for Gamma. No answer. Left a VM requesting a return phone call. documented in this encounter [facility] 07-14-2025 Note HNO ID: [id number] Author: TARAS MARTINEZ MD Service: Hematology/Oncology Author Type: Physician Type: Progress Notes Filed: 07/21/2025 20:46 Note Text: Documentation Query Please clarify the significance of the pathology report I agree with the pathology findings dated 07/13/25 which confirms the clinically significant diagnosis of metastatic squamous cell carcinoma of liver Please clarify the present on admission status Present on Admission This document will become part of the patient's medical record. [facility] 07-14-2025 Note HNO ID: [id number] Author: VERONCIA CORONEL RN Service: Care Management Author Type: Registered Nurse Type: Care Mgt Progress Note Filed: 07/14/2025 15:44 Note Text: CARE MANAGEMENT DISCHARGE NOTE SERVICE DATE: July 14, 2025 SERVICE TIME: 3:43 PM Admission Date: 07/11/2025 LOS: 3 days Discharge Arrangement Discharge Arrangement: Home with Self Care Caregiver Assessment Caregiver is ready, willing and able to meet the patient's needs as recommended by the inter-professional team: No Caregiver needed Transportation Arrangements Transportation Arrangements: Car Date of Trip: 07/14/25 Destination: Home Handoff Communication: Handoff to: Primary Care Physician Primary Care Physician Name/Phone: Andrew Billingsley MD General - Internal Medicine [phone] Additional Information: Discharge home today with self care. Therapy recommended outpatient therapy, patient declined. Family to transport home at [place]. SIGNATURE: Veronica Coronel RN PATIENT NAME: Christina Macias DATE: July 14, 2025 TIME: 3:43 PM [facility] 07-14-2025 Note HNO ID: [id number] Author: VERONICA CORONEL RN Service: Care Management Author Type: Registered Nurse Type: Care Mgt Initial Assessment Filed: 07/14/2025 09:57 Note Text: CARE MANAGEMENT PROGRESS NOTE SERVICE DATE: 07/14/2025 SERVICE TIME: 9:55 AM LOS: 3 days Liver Bx done yesterday, hem/onc following- -GK[facility] outpatient pending biopsy results. Ot recommends home and PT recommends outpatient therapy. Outpatient therapy resources given to patient, she declines therapy. No CM needs. Family to provide transport home. SIGNATURE: Veronica Coronel RN PATIENT NAME: Christina Macias DATE: July 14, 2025 TIME: 9:55 AM [facility] 07-14-2025 Note HNO ID: [id number] Author: SABA RICH PA-C Service: Neurosurgery Author Type: Physician Shipping Receiving Clerk Type: Progress Notes Filed: 07/14/2025 09:23 Note Text: Neurosurgery Progress Note SERVICE DATE: 07/14/2025 SUBJECTIVE: NAEON OBJECTIVE: Vitals: Temp (24hrs), Av.7 ?C (98.1 ?F), Min:36.4 ?C (97.5 ?F), Max:37 ?C (98.6 ?F) BP 156/77 Pulse 76 Temp 36.8 ?C (98.2 ?F) (Oral) Resp 16 Ht 167.6 cm (5' 6) Wt 68.3 kg (150 lb 9.6 oz) SpO2 96% BMI 24.31 kg/m? O2 Therapy: Room Air MEDICATIONS Current Facility-Administered Medications Medication Dose Route Frequency iv contrast (radiology procedure) INTRAVENOUS DIRECTED PRN metoprolol succinate ER 25 mg tab(s) (TOPROL XL) 25 mg ORAL AT BEDTIME hydrALAZINE 10 mg injection (APRESOLINE) 10 mg INTRAVENOUS q 6 H PRN cefTRIAXone iv piggyback 1 g in dextrose (iso-osmotic) 50 mL (ROCEPHIN) 1 g INTRAVENOUS q 24 H NaCl 0.9% iv flush bag 20 mL INTRAVENOUS PRN chlorthalidone 25 mg tab(s) (HYGROTON) 25 mg ORAL DAILY lactobacillus rhamnosus 10 billion cell (CULTURELLE) capsule 1 capsule ORAL DAILY acetaminophen 650 mg tab(s) (TYLENOL) 650 mg ORAL q 6 H PRN ondansetron (PF) 4 mg injection (ZOFRAN) 4 mg INTRAVENOUS q 12 H PRN Labs: Recent Labs 07/14/25 0436 07/13/25 0927 07/13/25 0915 07/12/25 0652 NA 135* -- 134* 134* K 3.3* -- 3.2* 3.4* CHLOR 96* -- 93* 96* CO2 23 -- 27 26 BUN 27* -- 18 14 CREAT 0.57* -- 0.52* 0.50* GLUC 126* -- 141* 143* ANION 16* -- 14 12 CA 9.8 -- 9.7 9.8 MG 1.8 -- -- 1.7 ALB -- -- -- 4.1 AST -- -- -- 12* ALT -- -- -- 9 ALKPHOS -- -- -- 91 TBILI -- -- -- 0.7 WBC 16.69* -- 17.81* 16.42* HB 14.3 -- 14.3 14.2 HCT 42.4 -- 41.4 42.0 PLT 338 -- 330 341 INR -- 1.1 -- -- Exam: GENERAL: Awake and alert; NAD NEURO: Orientedx3; speech clear and fluent; VAZQUEZ; no arm drift STRENGTH: 5/5 throughout HEENT: Normocephalic; atraumatic; perrl/eomi; no facial droop LUNGS: Unlabored breathing CARDIAC: Rate and rhythm as above EXTREMITIES: No deformities, No edema SKIN: Skin color normal; Temperature normal; no rashes or lesions ASSESSMENT AND PLAN: Ms. Macias is a 69 y/o female with hx of hypertension who presented with c/o ear pain, malaise and appetite loss. CT head demonstrated multiple brain lesions concerning for mets. -Neuro as above -liver biopsy yesterday -hem/onc following-[facility] outpatient pending biopsy results -PT/OT- recs for home PT at [place] -Medical management and DVT ppx per primary service Parts of this note may have been copied from one of my previous notes and remain pertinent. The documentation has been reviewed and edited as necessary to support the clinical decision making for today's visit. SIGNATURE: Saba Rich PA-C PATIENT NAME: Christina Macias DATE: July 14, 2025 TIME: 7:23 AM Pager: [phone] [facility] 07-14-2025 Note HNO ID: [id number] Author: TARAS MARTINEZ MD Service: Hematology/Oncology Author Type: Physician Type: Progress Notes Filed: 07/14/2025 15:39 Note Text: Heme Onc CONSULT NOTE SERVICE DATE: 07/14/2025 SERVICE TIME: 0700am REASON FOR CONSULT: brain mass REQUESTING PHYSICIAN: Regi PRIMARY CARE PHYSICIAN: Andrew Billingsley MD Subjective Mrs. Macias is a 69 year old female who presented to [place] ED for feeling off balance. She had a CT brain showing low-density in the R temporal and occipital lobe and R cerebellar hemisphere suggestive of vasogenic edema from underlying masses with mild subfalcine herniation of 6.4 mm without hemorrhage. She was transferred here for further evaluation and management. Neurosurgery was consulted. MRI brain revealed numerous lesions concerning for metastatic disease. CT CAP revealed R lung mass, thoracic lymphadenopathy, and multiple liver lesions. Christina denies personal history of cancer. Reports her mother had lung cancer in her 50s and she was a smoker. No other family hx of any cancers. She denies personal hx of VTE. No personal or family hx of any bleeding or clotting disorders. She is a former smoker. Smoked for about 20 years, 1 pack per day. Stopped about 35 years ago. Denies any alcohol or drug use. 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 Reports he last colonoscopy was about 5 years ago and normal. Reports her last mammogram was about 5 years ago and was normal. Has never had an abnormal mammogram. No unexplained fevers, chills, night sweats, blood in the stool/urine, changes in bladder bowel habits, lumps or masses anywhere, decreased appetite, and unexplained weight loss. Recently intentionally lost 60 pounds in 8 months, has been going to gym 3 days a week and watching what she eats. Walks about 3 miles at the gym. She lives with her . They have 6 children, 1 lives local and the rest are out of state. Interval history: Today she is doing well. Hopes to go home. Did well with liver biopsy yesterday. No issues. FUNCTIONAL STATUS: Independent PAST MEDICAL HISTORY Diagnosis Date Diverticulosis of colon (without mention of hemorrhage) colonoscopy 08/14 Essential hypertension, benign IBS (irritable bowel syndrome) Pneumonia 08/2014 PAST SURGICAL HISTORY Procedure Laterality Date COLONOSCOPY 06/2010 DILATION AND CURETTAGE DXAND/THER NONOBSTETRIC Dilation AND curettage LAPAROSCOPY SURG CHOLECYSTECTOMY 09/2009 PAST SURGICAL HISTORY OF [id number] bilat knee arthroscopic TONSILLECTOMY AND ADENOIDECTOMY Tonsil/adenoidectomy FAMILY HISTORY Problem Relation Age of Onset Ischemic Heart Disease Father age 46 Cancer Mother lung Ischemic Heart Disease Other nephew SOCIAL HISTORY[1] Prescriptions Prior to Admission[2] Current Facility-Administered Medications Medication Dose Route Frequency iv contrast (radiology procedure) INTRAVENOUS DIRECTED PRN metoprolol succinate ER 25 mg tab(s) (TOPROL XL) 25 mg ORAL AT BEDTIME hydrALAZINE 10 mg injection (APRESOLINE) 10 mg INTRAVENOUS q 6 H PRN cefTRIAXone iv piggyback 1 g in dextrose (iso-osmotic) 50 mL (ROCEPHIN) 1 g INTRAVENOUS q 24 H NaCl 0.9% iv flush bag 20 mL INTRAVENOUS PRN chlorthalidone 25 mg tab(s) (HYGROTON) 25 mg ORAL DAILY lactobacillus rhamnosus 10 billion cell (CULTURELLE) capsule 1 capsule ORAL DAILY acetaminophen 650 mg tab(s) (TYLENOL) 650 mg ORAL q 6 H PRN ondansetron (PF) 4 mg injection (ZOFRAN) 4 mg INTRAVENOUS q 12 H PRN Allergies As of Date: 07/11/2025 (No Known Allergies) Fully Assessed 07/11/2025 COMPLETE REVIEW OF SYSTEMS: Reviewed and negative unless noted in HPI. Objective PHYSICAL EXAM: Physical Exam Performed: GENERAL: Alert, no distress, cooperative SKIN: Skin color, texture, turgor normal. No rashes or lesions. NECK: no palpable cervical or supraclavicular lymphadenopathy. LUNGS: Lungs clear to auscultation, Good diaphragmatic excursion CARDIAC: Normal S1 and S2; no rubs, murmurs, or gallops ABDOMEN: Abdomen soft, non-tender, BS normal, No masses or organomegaly EXTREMITIES: Extremities normal, no deformities, edema, clubbing or skin discoloration. Good capillary refill. NEURO: Grossly normal cognition, motor function, and cranial nerves III-XII BP 156/77 Pulse 76 Temp (Src) 98.2 (Oral) Resp 16 Ht 5' 6 (1.68m) Wt 150 lb 9.6 oz (68.3kg) SpO2 96% BMI 24.32 kg/(m2). O2 Therapy: Room Air DATA: Diagnostic tests reviewed for today's visit: Most recent labs and imaging results. CBC: Recent Labs 07/14/25 0436 07/13/25 0915 07/12/25 0652 07/11/25 2308 WBC 16.69* 17.81* 16.42* 17.63* HB 14.3 14.3 14.2 14.4 HCT 42.4 41.4 42.0 42.9 PLT 338 330 341 302 MCV 82.0 81.0 82.4 82.2 RDWCV 12.9 13.0 12.8 12.8 NEUTP -- -- 82.7 90.8 ABSNEUT -- -- 13.58* 15.99* LYMPHP -- -- 10.8 7.5 MONOP -- -- 5.6 1.1 EODINP -- -- 0.2 0.1 COAG: Recent Labs 07/13/25 (more content not included)... [facility] 07-14-2025 Note HNO ID: [id number] Author: GEOVANNA WILLIAMSON PA-C Service: Hospital Medicine Author Type: Physician Shipping Receiving Clerk Type: Plan of Care Filed: 07/14/2025 05:58 Note Text: 0557: This ALFONSO was notified about this patient's K of 3.3 by RN. Klor-con 40 mEq tab PO 1x ordered w/redraw at 1100 ordered. Geovanna Williamson PA-C [facility] 07-14-2025 Note HNO ID: [id number] Author: GEORGETTE BOSS RN Service: Nursing Author Type: Registered Nurse Type: Progress Notes Filed: 07/14/2025 05:55 Note Text: Notified SURESH Aparicio of k 3.3. [facility] 07-13-2025 Note HNO ID: [id number] Author: RASHEED GARCIA DO Service: Hospital Medicine Author Type: Physician Type: Progress Notes Filed: 07/13/2025 15:33 Note Text: DEPARTMENT OF HOSPITAL MEDICINE PROGRESS NOTE SERVICE DATE: 07/13/2025 SERVICE TIME: 3:25 PM Hospital Medicine/Primary Attending: Rasheed Garcia DO NIGHT AND WEEKEND COVERAGE: After 7pm please page [phone] CHIEF COMPLAINT: no new complaints SUBJECTIVE: Pt seen and examined. Denies CP, Shortness of Breath, NV, fevers or abdominal pain. OBJECTIVE: PHYSICAL EXAM: BP 144/73 Pulse 75 Temp (Src) 97.5 (Oral) Resp 18 Ht 5' 6 (1.68m) Wt 150 lb 9.6 oz (68.3kg) SpO2 95% BMI 24.32 kg/(m2). O2 Therapy: Room Air General - AANDOx3, NAD, Calm CV - RRR S1 S2, No rubs or gallops RESP - No wheezes, ronchi, rales ABD - soft, NT, Nondistended, +BS EXT - no clubbing, cyanosis, edema NEURO - CN II-XII grossly intact MEDICATIONS: Current Facility-Administered Medications Medication Dose Route Frequency [Transfer Hold] iv contrast (radiology procedure) INTRAVENOUS DIRECTED PRN [Transfer Hold] metoprolol succinate ER 25 mg tab(s) (TOPROL XL) 25 mg ORAL AT BEDTIME [Transfer Hold] hydrALAZINE 10 mg injection (APRESOLINE) 10 mg INTRAVENOUS q 6 H PRN [Transfer Hold] cefTRIAXone iv piggyback 1 g in dextrose (iso-osmotic) 50 mL (ROCEPHIN) 1 g INTRAVENOUS q 24 H [Transfer Hold] NaCl 0.9% iv flush bag 20 mL INTRAVENOUS PRN [Transfer Hold] chlorthalidone 25 mg tab(s) (HYGROTON) 25 mg ORAL DAILY [Transfer Hold] lactobacillus rhamnosus 10 billion cell (CULTURELLE) capsule 1 capsule ORAL DAILY [Transfer Hold] acetaminophen 650 mg tab(s) (TYLENOL) 650 mg ORAL q 6 H PRN [Transfer Hold] ondansetron (PF) 4 mg injection (ZOFRAN) 4 mg INTRAVENOUS q 12 H PRN DATA: Diagnostic tests reviewed for today's visit: CBC: Recent Labs 07/13/25914 WBC 17.81* RBC 5.11 HB 14.3 HCT 41.4 PLT 330 MCV 81.0 MCH 28.0 MPV 10.3 Coags: Recent Labs 07/13/25926 INR 1.1 BMP: Recent Labs 07/13/25914 NA 134* K 3.2* CHLOR 93* CO2 27 BUN 18 CREAT 0.52* GLUC 141* CMP: Recent Labs 07/13/25914 NA 134* K 3.2* CHLOR 93* CO2 27 BUN 18 CREAT 0.52* GLUC 141* CA 9.7 ANION 14 Cardiac Enzymes: No results for input(s): CK, MB, CKMB, TROPT in the last 24 hours. Liver Function, Amylase, Lipase: No results for input(s): TPROT, ALB, ALT, AST, ALKPHOS, TBILI, AMYLASE, LIPASE, LACTATE in the last 24 hours. MG/PHOS: No results for input(s): MG, P in the last 24 hours. Renal Panel: Recent Labs 07/13/25914 CREAT 0.52* BUN 18 GLUC 141* CA 9.7 CHLOR 93* K 3.2* CO2 27 NA 134* Heme: No results for input(s): RETICP, ABSRETIC, LD, JACOB, FE, TIBC,TRANSFERSAT in the last 24 hours. No results found for: UALBCR Estimated Creatinine Clearance: 92.9 mL/min (A) (based on SCr of 0.52 mg/dL (L)). Most recent labs and radiology results reviewed. Assessment/Plan #Multiple brain lesions concerning for metastatic disease -I reviewed MRI brain showing numerous peripherally enhancing brain lesions with surrounding vasogenic edema, most compatible with metastatic disease. -CT A/P and chest showing RUL lung mass with obstruction of R upper lobe bronchus, liver lesions concerning for mets, enlarging R adrenal mass, bone destruction at T11 and lytic lesion at L3 -going for liver biopsy this afternoon, will monitor overnight for any bleeding, check CBC in AM -NSGY consulted- defer steroids and AEDs to NSGY -follow path -Oncology consult, appreciate recs #Recent sinus infection- on rocephin, can complete home meds outpatient #Leukocytosis- possible reactive in setting of mets. I will order UA with reflex culture. #Hypokalemia- K 3.2, I will replace with Kdur 40meq and repeat BMP and Mg in AM. #HTN- continue metoprolol 25mg and chlorthalidone 25mg IN AM, replace K as needed VTE Prophylaxis: held for liver biopsy and brain mass with vasogenic edema Disposition: Home Plan of care discussed with: Provider, RN, Patient, Care Management, and at bedside SIGNATURE: Rasheed Garcia DO PATIENT NAME: Christina Macias DATE: July 13, 2025 TIME: 3:25 PM PAGER/CONTACT #: Team color pager Disclaimer: Portions of this note may have been generated using [employer] voice recognition software. Reasonable efforts were made to correct any dictation errors that resulted due to the programming of this software but some may still be present. Please note, the time of this note does not reflect the time I saw this patient today, but the time of this documentation. [facility] 07-13-2025 Note HNO ID: [id number] Author: TARAS MARTINEZ MD Service: Hematology/Oncology Author Type: Physician Type: Progress Notes Filed: 07/13/2025 05:45 Note Text: Chart reviewed. CTs show a RUL lung mass with obstruction of R upper lobe bronchus, liver lesions concerning for mets, enlarging R adrenal mass (present on previous CTs but bigger now), bone destruction at T11 and lytic lesion at L3. Biopsy of the liver discussed with pt yesterday and planned. NSG following for multiple brain mets. Likely GK candidate. MRI brain shows vasogenic edema with midline shift. Suggest Dex but defer to NSG team. Will follow for path. Pt would like to be seen in clinic in [place] as this is closer to home. Will refer outpt once path resulted. Taras Martinez MD [facility] 07-12-2025 Note HNO ID: [id number] Author: VERONICA CORONEL RN Service: Care Management Author Type: Registered Nurse Type: Care Mgt Initial Assessment Filed: 07/12/2025 14:40 Note Text: CARE MANAGEMENT: ASSESSMENT AND DISCHARGE PLAN SERVICE DATE: July 12, 2025 SERVICE TIME: 2:36 PM PCP: Andrew Billingsley MD Primary Contact: Extended Emergency Contact Information Primary Emergency Contact: Jt Macias V Address: [address] [place] [address] [facility] Mobile Relation: Spouse Admission Status: Inpatient Insurance Provider: MEDICARE A AND B Discharge Planning requested by: Per Department Practice Potential Transition Plans To Be Determined Advance Directives Current Advance Directive: Health Care Power of Vice President Quality Improvement In Chart: Yes Up To Date and Valid: Yes Current Living Arrangements and Support Lives with: Spouse/significant other Type of Residence: Private Residence (Apartment or Condo) Does the patient have to climb stairs at home?: No Support: Family members, Children, Spouse/significant other How do you manage to accomplish the following: Independent: Ambulation, Bathe/Shower, Dress, Meals/Meal Prep, Going to the bathroom, Medication Management, Transportation to appointments/community Current Services/Equipment Current Post-Acute Service(s): DME Current DME Type: Cane, Rolling walker Discharge Planning Patient Goal(s): Independent living, Be able to go home, General wellness [place] of Choice Explained: [place] of Choice Given: No Reason Not Given: No placements necessary Are you interested in bedside delivery of your medications? No Discharge Planning Participant(s): Patient, Children Patient/Family Comments: Caregiver Assessment: Caregiver is ready, willing and able to meet the patient's needs as recommended by the inter-professional team: No Caregiver needed Transport at Discharge: Transportation Arrangements: Car Destination: Home Needs Prior to Discharge: Needs Prior to Discharge: To Be Determined Post-Acute Discharge Plan: Met with patient and son [facility]. CM role explained. Patient lives at home with spouse, is independent, has DME from hip replacement in the past, but does not need to use any DME currently. +PCP, +RX coverage. Pending liver bx, oncology following. Therapy recommends outpatient therapy. Outpatient therapy clinic resources provided. Patient states she does not feel she needs any therapy and will likely not go to outpatient therapy. Plan is return home, sons to provide transport at [place]. CM to continue to follow. SIGNATURE: Veronica Coronel RN PATIENT NAME: Christina Macias DATE: July 12, 2025 TIME: 2:36 PM [facility] 07-12-2025 Note HNO ID: [id number] Author: STEVE DELUNA MD Service: Hospital Medicine Author Type: Physician Type: Progress Notes Filed: 07/12/2025 14:19 Note Text: DEPARTMENT OF HOSPITAL MEDICINE PROGRESS NOTE SERVICE DATE: 07/12/2025 SERVICE TIME: 2:11 PM Hospital Medicine/Primary Attending: Steve Deluna MD NIGHT AND WEEKEND COVERAGE: [place] COVERAGE: From 7am - 7pm, please call After 7pm, please call cross cover pager #[phone] Subjective INTERVAL HPI: patient was seen and examined. She denied chest pain, Sob, cough, abd pain, headache, blurry vision. She was found to have metastatic lesions to the brain, liver and bone with likely a primary tumor in the lung. Current Facility-Administered Medications Medication Dose Route Frequency iv contrast (radiology procedure) INTRAVENOUS DIRECTED PRN iv contrast (radiology procedure) INTRAVENOUS DIRECTED PRN And enteric contrast (radiology procedure) ORAL DIRECTED PRN metoprolol succinate ER 25 mg tab(s) (TOPROL XL) 25 mg ORAL AT BEDTIME hydrALAZINE 10 mg injection (APRESOLINE) 10 mg INTRAVENOUS q 6 H PRN cefTRIAXone iv piggyback 1 g in dextrose (iso-osmotic) 50 mL (ROCEPHIN) 1 g INTRAVENOUS q 24 H NaCl 0.9% iv flush bag 20 mL INTRAVENOUS PRN chlorthalidone 25 mg tab(s) (HYGROTON) 25 mg ORAL DAILY lactobacillus rhamnosus 10 billion cell (CULTURELLE) capsule 1 capsule ORAL DAILY acetaminophen 650 mg tab(s) (TYLENOL) 650 mg ORAL q 6 H PRN ondansetron (PF) 4 mg injection (ZOFRAN) 4 mg INTRAVENOUS q 12 H PRN Objective PHYSICAL EXAM: BP 164/82 Pulse 97 Temp (Src) 98.6 (Oral) Resp 18 Ht 5' 6 (1.68m) Wt 150 lb 9.6 oz (68.3kg) SpO2 98% BMI 24.32 kg/(m2). O2 Therapy: Room Air Physical Exam Performed GENERAL: Alert, no distress, cooperative LUNGS: Lungs clear to auscultation, Good diaphragmatic excursion CARDIAC: Normal S1 and S2; no rubs, murmurs, or gallops ABDOMEN: Abdomen soft, non-tender, BS normal, No masses or organomegaly Lines, Drains, and Airways Line Duration Peripheral 07/11/25 External Facility Left Forearm 18 Gauge 1 day DATA: Diagnostic tests reviewed for today's visit: Most recent labs Most recent imaging HOSPITAL COURSE: - unsteadiness with multiple lesions in the brain. MRI brain :Numerous peripherally enhancing brain lesions with surrounding vasogenic edema, most compatible with metastatic disease. CT chest: Mass lesion centrally in the right upper lobe obstructing the right upper lobe bronchus. Suspect primary lung neoplasm. metastatic lymph nodes. Bony destruction of T11 most consistent with metastatic disease CT abd/pelvis Several lesions in the liver most suspicious for metastatic disease . Right adrenal mass. Oncology evaluated and ordered liver biopsy NS evaluated, hold Dex and Keppra. No plan for surgery # recent sinus infection was on cefuroxime will hold as patient reports bothering her stomach, was half way through seven day script, will complete with rocephin #leukocytosis may be more reactive will repeat in am #HTN on metoprolol 25 mg at night and chlorthalidone 25 mg in am, monitor K on diuretic Assessment AND Plan Lung mass Present on Admission: Status not on file Liver mass Present on Admission: Status not on file Adrenal mass (HCC) Present on Admission: Status not on file Cancer, metastatic to bone (HCC) Present on Admission: Status not on file Medication and Non-Pharmacologic VTE Prophylaxis/Anticoagulants 07/11/25 2200 vte pharmacologic prophylaxis contraindicated [place] 07/11/25 2200 pneumatic compression sleeve(s) ([place] 07/11/25 2200 activity - mobilize patient ([place] VTE Prophylaxis: PCDs Disposition: To be determined Plan of care discussed with Provider, RN, Patient SIGNATURE: Steve Deluna MD PATIENT NAME: Christina Macias DATE: July 12, 2025 TIME: 2:11 PM [facility] 07-11-2025 Discharge summary Note Date/Time July 11, 2025 3:45pm [facility] Medical Records Department [address] [place] [address] Emergency Department Summary 07/11/25 MR#: [id number] Acct: [id number] Name: HERBERTCHRISTINA Rep #:[id number] : 1955 69 From: Gwen Roger PCP: Dr. Andrew Billingsley MD Status:REG ER Location: ED HPI History of Present Illness Chief Complaint: Dizziness Informant: patient Onset/Context/Timing Onset: Weeks (1) Context: Gradual Onset Timing: Continuous Quality: Lightheaded, off-balance Location: Generalized Worsened by: Turning her head Relieved by: Nothing Narrative Narrative: Patient presents with dizziness and lightheadedness for the past week. Patient states it came on gradually. Patient states she feels like she is off balance when she is walking. Patient admits to some fatigue and decreased appetite. Patient states she was recently started on cefuroxime 5 days ago. Patient states she has not had any improvement with this. Patient states her dizziness is worse when she turns her head. Patient admits to some subjective chills. Patient admits to a frontal headache. Patient admits to some nausea and vomiting. Patient admits to some pain in her right ear. [facility] FORMERLY [facility], [facility] Medical History Diverticulitis Vision problems GERD (gastroesophageal reflux disease) Pneumonia Irritable bowel syndrome Migraine Gastrointestinal problem Gallstones Carpal tunnel syndrome Cataracts, both eyes UTI (urinary tract infection) Back problem Arthritis Hypertension Home Medications ?Medication ?Instructions ?Recorded ?Last Taken ?Type cetirizine 10 mg capsule (Zyrtec) 10 mg PO DAILY 08/07 Unknown History multivitamin 1 tab PO DAILY 08/07/22 Unkn own History probiotic PO 08/07/22 Unknown History vitamin c PO 08/07/22 Unknown History calcium PO 2XW 09/10/23 Unknown Hist ory aspirin 81 mg tablet,delayed 81 mg PO QDAY 09/15/24 Un known History release chlorthalidone 25 mg tablet 25 mg PO DAILY #90 tabs Unknown Rx metoprolol succinate 25 mg 25 mg PO QDAY 01/27/25 Unkn own History tablet,extended release 24 hr cefuroxime axetil 250 mg tablet 250 mg PO BID 7 days # 14 tabs 07/06/25 Unknown Rx Allergy/AdvReac Type Severity Reaction Status Date / Time Seasonal Allergies: Uncoded Allergy Intermediate Itching Verified 07/11/25 10:43 Family History Brother Alcoholism Hypertension Mother Cancer lung Hypertension Grandmother Arthritis Hypertension Grandfather Arthritis Hypertension Father Myocardial infarction at 46 years old Hypertension Other Diabetes Diverticular disease Heart disease Surgical History Enlarged tonsils and adenoids Hx of cholecystectomy Hx of arthroscopic knee surgery Status post total hip replacement, right Social History adopted: No household members: spouse housing: apartment current occupational status: retired Smoking Status: Former smoker alcohol intake: never details: occasional beer or ryann substance use type: does not use well-balanced diet: daily or most days caffeine: Yes eating out: 1-3 times/week during the past year weight has: remained stable what type of physical activity do you participate in: walking aleksey/roman catholic: Latter-Day seatbelt use: always do you feel safe at home: Yes ROS ROS ED Constitutional Constitutional ED: Reports chills and subjective; Denies fever(s) Eyes Eyes: Denies blurry vision or change in vision ENT ENT ED: Reports ear pain right; Denies rhinorrhea or sore throat Cardiovascular Cardiovascular: Denies chest pain or palpitations Respiratory/Chest Respiratory/Chest: Reports cough; Denies dyspnea Gastrointestinal Gastrointestinal: Reports nausea and vomiting Genitourinary Genitourinary ED: Denies dysuria or hematuria Musculoskeletal Musculoskeletal: Denies back pain or neck pain Integumentary Denies abscess or rash Neurologic Neurologic: Reports headache(s); Denies weakness Allergic/Immunologic Allergic/Immunologic ED: Denies mouth swelling or urticaria EXAM Physical Exam Const Vital Signs: 07/11/25 10:43 07/11/25 11:42 07/11/25 13:00 Temperature 98.2 F Temperature Source Oral Pulse Rate 94 81 80 Pulse Rate [Lying] Pulse Rate [Sitting (for 1 minute prior to obtaining)] Pulse Rate [Standing (for 1 minute prior to obtaining)] Respiratory Rate 16 15 13 Blood Pressure 177/83 H 156/74 H 114/87 H Blood Pressure [Lying] Blood Pressure [Sitting (for 1 minute prior to obtaining)] Blood Pressure [Standing (for 1 minute prior to obtaining)] Blood Pressure Mean 114 101 96 Blood Pressure Mean [Lying] Blood Pressure Mean [Sitting (for 1 minute prior to obtaining)] Blood Pressure Mean [Standing (for 1 minute prior to obtaining)] Pulse Ox 97 99 96 Oxygen Delivery Method Room Air 07/11/25 13:17 07/11/25 14:00 07/11/25 15:00 Temperature Temperature Source Pulse Rate 78 84 Pulse Rate [Lying] 76 Pulse Rate [Sitting (for 1 minute prior to obtaining)] 76 Pulse Rate [Standing (for 1 minute prior to obtaining)] 85 Respiratory Rate 13 13 Blood Pressure 164/76 H 181/78 H Blood Pressure [Lying] 139/80 H Blood Pressure [Sitting (for 1 minute prior to obtaining)] 156/80 H Blood Pressure [Standing (for 1 minute prior to obtaining)] 153/87 H Blood Pressure Mean 105 112 Blood Pressure Mean [Lying] 99 Blood Pressure Mean [Sitting (for 1 minute prior to obtaining)] 105 Blood Pressure Mean [Standing (for 1 minute prior to obtaining)] 109 Pulse Ox 96 96 Oxygen Delivery Method Room Air Positive well nourished and well developed General Appearance ED: well developed and NAD HEENT Reports moist mucous membranes Eyes EOMs intact bilaterally Eyes Narrative: There is mild nystagmus with lateral gaze bilaterally. Neck supple and no JVD Resp normal respiratory effort and clear to auscultation bilaterally Cardio regular rate and regular rhythm GI non-tender and non-distended Palpation: soft Extremity normal to inspection Neuro oriented x3, CN's II-XII intact bilaterally and no sensory deficits noted Neuro Narrative: Finger-nose testing was intact. Sensorium / Orientation: alert Motor Exam: strength 5/5 throughout Psych mental status grossly normal MDM MDM MDM Narrative Medical decision making narrative: Differential diagnosis includes stroke, intracranial bleeding, labyrinthitis, vertigo, dehydration, urinary tract infection, cardiac ischemia, and electrolyteabnormality. EKG will be obtained to assess for cardiac dysrhythmia and cardiacischemia. CT scan of the brain will be obtained to assess for intracranial bleeding and stroke. CBC will be obtained to assess for leukocytosis and anemia. Basic metabolic profile will be obtained to assess for electrolyte abnormality and renal function. Urinalysis will be obtained to assess for urinary tract infection and hematuria. Orthostatic vital signs will be obtainedto assess for hypovolemia and dehydration. History & Record Review Additional record(s) reviewed:: Prior ED visit and Prior labs Lab Data Attestation: I reviewed the patient's lab results. Lab results narrative: CBC was reviewed. There is a mild leukocytosis of 13.4. The remainder is within normal limits. Basic metabolic profile was reviewed. Glucose was mildlyelevated at 151. The remainder was within normal limits. Urinalysis was reviewed. There is no evidence of urinary tract infection or hematuria. Labs: Laboratory Results - last 24 hr 07/11/25 07/11/25 11:21 12:30 WBC 13.4 H RBC 5.02 Hgb 14.0 Hct 40.8 MCV 81.3 MCH 27.9 MCHC 34.3 RDW Std Deviation 38.0 RDW Coeff of Sylvain 12.9 Plt Count 291 MPV 11.0 Immature Gran % (Auto) 0.400 Neut % (Auto) 85.8 H Lymph % (Auto) 8.8 L [place] % (Auto) 4.0 Eos % (Auto) 0.7 Baso % (Auto) 0.3 Absolute Neuts (auto) 11.5 H Absolute Lymphs (auto) 1.18 Nucleated RBC % 0 Sodium 134 Potassium 3.4 Chloride 97 L Carbon Dioxide 22.0 Anion Gap 15 BUN 18 Creatinine 0.59 L Estim Creat Clear Calc 60.38 Est GFR (MDRD) Non-Af 96 BUN/Creatinine Ratio 29.6 H Glucose 151 H Calcium 9.9 Urine Color Yellow Urine Clarity Clear Urine pH 6.0 Ur Specific Darwin 1.020 Urine Protein 100 H Urine Glucose (UA) Normal Urine Ketones 50 H Urine Occult Blood 10 H Urine Nitrite Negative Urine Bilirubin Negative Urine Urobilinogen Normal Ur Leukocyte Esterase 25 H Urine RBC 0-5 SEEN Urine WBC 0-5 SEEN Ur Squamous Epith Cells 0-5 SEEN Urine Bacteria 0 SEEN Urine Mucus 2+ Radiography Diagnostic Testing: Clinical Impression(s) from Imaging Studies Brain CT 07/11/25 12:21 IMPRESSION: 1. Low-density in the right temporal and occipital lobe and also of the right cerebellar hemisphere suggestive of vasogenic edema likely from underlying masses. This is new compared to December 13, 2024. Mild subfalcine herniation to the left 6.4 mm. Contrast-enhanced MRI may be helpful. 2. No hemorrhage. Reading Location: [facility] EKG Initial EKG: Attestation: I personally reviewed and interpreted this EKG as follows: Interpretation: Sinus Rhythm (With frequent PVCs with a rate of 78) and NoAcute Injury Pattern Comments: EKG was obtained. On my independent interpretation, showed normal sinus rhythm with frequent PVCs with a rate of 78. NC interval was normal at176 ms. QRS interval was normal at 92 ms. QTc interval was 494 ms. [place] was normal at 58. There are no acute ST-T wave changes. Prior EKG tracings: available for review Prior: Unchanged (12/13/2024) Treatment and Re-Evaluation :: Patient was given a dose of Valium here. Patient had no improvement with Valium. Patient was advised of her findings. Patient was advised of the need for further neurologic testing and admission to the hospital. Case was discussed with the hospitalist here. She stated that the patient would need to be transferred to a tertiary care center. Patient requested to go to [place]. Case was discussed with transfer line at [facility]. Case wasalso discussed with neurosurgery at [facility]. They will review the images to see if the patient needs to go to ICU versus medical floor. Patient will be transferred up there after acceptance. Patient and family understood and were agreeable with the plan. All questions were answered. Discharge Plan Triage Chief Complaint: Dizziness ED Provider: Gwen Helm Dx/Rx/DC Orders Clinical Impression: Brain mass, Dizziness, Hypertension Prescriptions: No Action vitamin c PO multivitamin Tablet 1 tab PO DAILY probiotic PO Zyrtec 10 mg capsule 10 mg PO DAILY calcium PO 2XW chlorthalidone 25 mg tablet 25 mg PO DAILY Qty: 90 3RF metoprolol succinate 25 mg tablet extended release 24 hr 25 mg PO QDAY aspirin 81 mg tablet,delayed release (DR/EC) 81 mg PO QDAY cefuroxime axetil 250 mg tablet 250 mg PO BID 7 Days Qty: 14 0RF Primary Care Provider: Andrew Billingsley Referrals: Andrew Billingsley MD [Primary Care Provider] - Print Language: Moroccan Disposition Disposition: Acute Care Hospital [facility] What to do if you have Problems For any increased pain, shortness of breath, bleeding, nausea or vomiting, chestpain, or any unexpected problems, contact your Primary Care Provider. Call [facility] ([phone]) or report to the closest Emergency Room. Call 911 if necessary. 07/11/25 9235 <Electronically signed by Gwen Helm DO> Cosigner Signature (if applicable): CC: Dr. Andrew Billingsley MD ~ Signed [facility] Work Phone: [phone] 993-415909-01-2025 Discharge summary [facility] Medical Records Department [address] [place] [address] Emergency Department Summary 07/11/25 MR#: [id number] Acct: [id number] Name: CHRISTINA MACIAS Rep #:[id number] : 1955 69 From: Gwen Roger PCP: Dr. Andrew Billingsley MD Status:REG ER Location: ED HPI History of Present Illness Chief Complaint: Dizziness Informant: patient Onset/Context/Timing Onset: Weeks (1) Context: Gradual Onset Timing: Continuous Quality: Lightheaded, off-balance Location: Generalized Worsened by: Turning her head Relieved by: Nothing Narrative Narrative: Patient presents with dizziness and lightheadedness for the past week. Patient states it came on gradually. Patient states she feels like she is off balance when she is walking. Patient admits to some fatigue and decreased appetite. Patient states she was recently started on cefuroxime 5 days ago. Patient states she has not had any improvement with this. Patient states her dizziness is worse whenshe turns her head. Patient admits to some subjective chills. Patient admits to a frontal headache.Patient admits to some nausea and vomiting. Patient admits to some pain in her right ear. [facility] Medical History Diverticulitis Vision problems GERD (gastroesophageal reflux disease) Pneumonia Irritable bowel syndrome Migraine Gastrointestinal problem Gallstones Carpal tunnel syndrome Cataracts, both eyes UTI (urinary tract infection) Back problem Arthritis Hypertension Home Medications ?Medication ?Instructions ?Recorded ?Last Taken ?Type cetirizine 10 mg capsule (Zyrtec) 10 mg PO DAILY 08/07 Unknown History multivitamin 1 tab PO DAILY 08/07/22 Unkn own History probiotic PO 08/07/22 Unknown History vitamin c PO 08/07/22 Unknown History calcium PO 2XW 09/10/23 Unknown Hist ory aspirin 81 mg tablet,delayed 81 mg PO QDAY 09/15/24 Un known History release chlorthalidone 25 mg tablet 25 mg PO DAILY #90 tabs Unknown Rx metoprolol succinate 25 mg 25 mg PO QDAY 01/27/25 Unkn own History tablet,extended release 24 hr cefuroxime axetil 250 mg tablet 250 mg PO BID 7 days # 14 tabs 07/06/25 Unknown Rx Allergy/AdvReac Type Severity Reaction Status Date / Time Seasonal Allergies: Uncoded Allergy Intermediate Itching Verified 07/11/25 10:43 Family History Brother Alcoholism Hypertension Mother Cancer lung Hypertension Grandmother Arthritis Hypertension Grandfather Arthritis Hypertension Father Myocardial infarction at 46 years old Hypertension Other Diabetes Diverticular disease Heart disease Surgical History Enlarged tonsils and adenoids Hx of cholecystectomy Hx of arthroscopic knee surgery Status post total hip replacement, right Social History adopted: No household members: spouse housing: apartment current occupational status: retired Smoking Status: Former smoker alcohol intake: never details: occasional beer or ryann substance use type: does not use well-balanced diet: daily or most days caffeine: Yes eating out: 1-3 times/week during the past year weight has: remained stable what type of physical activity do you participate in: walking aleksey/roman catholic: Latter-Day seatbelt use: always do you feel safe at home: Yes ROS ROS ED Constitutional Constitutional ED: Reports chills and subjective; Denies fever(s) Eyes Eyes: Denies blurry vision or change in vision ENT ENT ED: Reports ear pain right; Denies rhinorrhea or sore throat Cardiovascular Cardiovascular: Denies chest pain or palpitations Respiratory/Chest Respiratory/Chest: Reports cough; Denies dyspnea Gastrointestinal Gastrointestinal: Reports nausea and vomiting Genitourinary Genitourinary ED: Denies dysuria or hematuria Musculoskeletal Musculoskeletal: Denies back pain or neck pain Integumentary Denies abscess or rash Neurologic Neurologic: Reports headache(s); Denies weakness Allergic/Immunologic Allergic/Immunologic ED: Denies mouth swelling or urticaria EXAM Physical Exam Const Vital Signs: 07/11/25 10:43 07/11/25 11:42 07/11/25 13:00 Temperature 98.2 F Temperature Source Oral Pulse Rate 94 81 80 Pulse Rate [Lying] Pulse Rate [Sitting (for 1 minute prior to obtaining)] Pulse Rate [Standing (for 1 minute prior to obtaining)] Respiratory Rate 16 15 13 Blood Pressure 177/83 H 156/74 H 114/87 H Blood Pressure [Lying] Blood Pressure [Sitting (for 1 minute prior to obtaining)] Blood Pressure [Standing (for 1 minute prior to obtaining)] Blood Pressure Mean 114 101 96 Blood Pressure Mean [Lying] Blood Pressure Mean [Sitting (for 1 minute prior to obtaining)] Blood Pressure Mean [Standing (for 1 minute prior to obtaining)] Pulse Ox 97 99 96 Oxygen Delivery Method Room Air 07/11/25 13:17 07/11/25 14:00 07/11/25 15:00 Temperature Temperature Source Pulse Rate 78 84 Pulse Rate [Lying] 76 Pulse Rate [Sitting (for 1 minute prior to obtaining)] 76 Pulse Rate [Standing (for 1 minute prior to obtaining)] 85 Respiratory Rate 13 13 Blood Pressure 164/76 H 181/78 H Blood Pressure [Lying] 139/80 H Blood Pressure [Sitting (for 1 minute prior to obtaining)] 156/80 H Blood Pressure [Standing (for 1 minute prior to obtaining)] 153/87 H Blood Pressure Mean 105 112 Blood Pressure Mean [Lying] 99 Blood Pressure Mean [Sitting (for 1 minute prior to obtaining)] 105 Blood Pressure Mean [Standing (for 1 minute prior to obtaining)] 109 Pulse Ox 96 96 Oxygen Delivery Method Room Air Positive well nourished and well developed General Appearance ED: well developed and NAD HEENT Reports moist mucous membranes Eyes EOMs intact bilaterally Eyes Narrative: There is mild nystagmus with lateral gaze bilaterally. Neck supple and no JVD Resp normal respiratory effort and clear to auscultation bilaterally Cardio regular rate and regular rhythm GI non-tender and non-distended Palpation: soft Extremity normal to inspection Neuro oriented x3, CN's II-XII intact bilaterally and no sensory deficits noted Neuro Narrative: Finger-nose testing was intact. Sensorium / Orientation: alert Motor Exam: strength 5/5 throughout Psych mental status grossly normal MDM MDM MDM Narrative Medical decision making narrative: Differential diagnosis includes stroke, intracranial bleeding, labyrinthitis, vertigo, dehydration,urinary tract infection, cardiac ischemia, and electrolyteabnormality. EKG will be obtained to assess for cardiac dysrhythmia and cardiacischemia. CT scan of the brain will be obtained to assess for i ntracranial bleeding and stroke. CBC will be obtained to assess for leukocytosis and anemia. Basic metabolic profile will be obtained to assess for electrolyte abnormality and renal function. Urinalysis will be obtained to assess for urinary tract infection and hematuria. Orthostatic vital signs will be obtainedto assess for hypovolemia and dehydration. History & Record Review Additional record(s) reviewed:: Prior ED visit and Prior labs Lab Data Attestation: I reviewed the patient's lab results. Lab results narrative: CBC was reviewed. There is a mild leukocytosis of 13.4. The remainder is within normal limits. Basic metabolic profile was reviewed. Glucose was mildlyelevated at 151. The remainder was within normallimits. Urinalysis was reviewed. There is no evidence of urinary tract infection or hematuria. Labs: Laboratory Results - last 24 hr 07/11/25 07/11/25 11:21 12:30 WBC 13.4 H RBC 5.02 Hgb 14.0 Hct 40.8 MCV 81.3 MCH 27.9 MCHC 34.3 RDW Std Deviation 38.0 RDW Coeff of Sylvain 12.9 Plt Count 291 MPV 11.0 Immature Gran % (Auto) 0.400 Neut % (Auto) 85.8 H Lymph % (Auto) 8.8 L [place] % (Auto) 4.0 Eos % (Auto) 0.7 Baso % (Auto) 0.3 Absolute Neuts (auto) 11.5 H Absolute Lymphs (auto) 1.18 Nucleated RBC % 0 Sodium 134 Potassium 3.4 Chloride 97 L Carbon Dioxide 22.0 Anion Gap 15 BUN 18 Creatinine 0.59 L Estim Creat Clear Calc 60.38 Est GFR (MDRD) Non-Af 96 BUN/Creatinine Ratio 29.6 H Glucose 151 H Calcium 9.9 Urine Color Yellow Urine Clarity Clear Urine pH 6.0 Ur Specific Darwin 1.020 Urine Protein 100 H Urine Glucose (UA) Normal Urine Ketones 50 H Urine Occult Blood 10 H Urine Nitrite Negative Urine Bilirubin Negative Urine Urobilinogen Normal Ur Leukocyte Esterase 25 H Urine RBC 0-5 SEEN Urine WBC 0-5 SEEN Ur Squamous Epith Cells 0-5 SEEN Urine Bacteria 0 SEEN Urine Mucus 2+ Radiography Diagnostic Testing: Clinical Impression(s) from Imaging Studies Brain CT 07/11/25 12:21 IMPRESSION: 1. Low-density in the right temporal and occipital lobe and also of the right cerebellar hemispheresuggestive of vasogenic edema likely from underlying masses. This is new compared to December 13, 2024. Mild subfalcine herniation to the left 6.4 mm. Contrast-enhanced MRI may be helpful. 2. No hemorrhage. Reading Location: [facility] EKG Initial EKG: Attestation: I personally reviewed and interpreted this EKG as follows: Interpretation: Sinus Rhythm (With frequent PVCs with a rate of 78) and NoAcute Injury Pattern Comments: EKG was obtained. On my independent interpretation, showed normal sinus rhythm with frequent PVCs with a rate of 78. NC interval was normal at176 ms. QRS interval was normal at 92 ms. QTc interval was 494 ms. [place] was normal at 58. There are no acute ST-T wave changes. Prior EKG tracings: available for review Prior: Unchanged (12/13/2024) Treatment and Re-Evaluation :: Patient was given a dose of Valium here. Patient had no improvement with Valium. Patient was advised of her findings. Patient was advised of the need for further neurologic testing and admission to the hospital. Case was discussed with the hospitalist here. She stated that the patient would need noy transferred to a tertiary care center. Patient requested to go to [place]. Case was discussed with transfer line at [facility]. Case wasalso discussed with neurosurgery at [facility]. They will review the images to see if the patient needs to go to ICU versus medical floor. Patient will be transferred up there after acceptance. Patient and family understood and were agreeable with the plan. All questions were answered. Discharge Plan Triage Chief Complaint: Dizziness ED Provider: Gwen Helm Dx/Rx/DC Orders Clinical Impression: Brain mass, Dizziness, Hypertension Prescriptions: No Action vitamin c PO multivitamin Tablet 1 tab PO DAILY probiotic PO Zyrtec 10 mg capsule 10 mg PO DAILY calcium PO 2XW chlorthalidone 25 mg tablet 25 mg PO DAILY Qty: 90 3RF metoprolol succinate 25 mg tablet extended release 24 hr 25 mg PO QDAY aspirin 81 mg tablet,delayed release (DR/EC) 81 mg PO QDAY cefuroxime axetil 250 mg tablet 250 mg PO BID 7 Days Qty: 14 0RF Primary Care Provider: Andrew Billingsley Referrals: Andrew Billingsley MD [Primary Care Provider] - Print Language: Moroccan Disposition Disposition: Acute Care Hospital Discharge Location: [facility] What to do if you have Problems For any increased pain, shortness of breath, bleeding, nausea or vomiting, chestpain, or any unexpected problems, contact your Primary Care Provider. Call [facility] ([phone]) or report tothe closest Emergency Room. Call 911 if necessary. 07/11/25 1545 Cosigner Signature (if applicable): CC: Dr. Andrew Billingsley MD ~ Signed [facility]09-01-2025 Radiology Diagnostic study note [facility] Imaging Services [address] [place] [address] Brain/Head without Contrast MR#: [id number] Acct: [id number] Name: CHRISTINA MACIAS Elisa Rep #: [id number] : 1955 F 69 From: Oscar Hamm MD PCP: Dr. Andrew Billingsley MD Status: REG ER Study:Brain/Head without Contrast Date of Exa m: 07/11/25 Exam# [id number] Ordering Dr: Gwen Helm DO PROCEDURE: BRAIN/HEAD WITHOUT CONTRAST 07/11/2025 REASON FOR EXAM: DIZZINESS TECHNIQUE: Procedure Code: CTBR Modality: CT Procedure: BRAIN/HEAD WITHOUT CONTRAST Coronal and Sagittal reconstruction series were provided. One or more dose reduction techniques were used (e.g., Automated exposure control, adjustment of the mA and/or kV according to patient size, use of iterative reconstruction technique. RADIATION DOSE SUMMARY: CTDlvol: 45 mGy DLP: 829 mGycm COMPARISON: December 13, 2024 FINDINGS: Brain: Heterogeneous low-density is shown within the right cerebellar hemispheresuggestive of vasogenic edema. Similar finding is seen in the right temporal and occipital lobe. A nearly isodense, oval focus is seen in the medial temporal lobe that may represent an underlying mass. No hemorrhage is seen. No extra-axial collection. Midline subfalcine shift to the left 6.4 mm. CSF Spaces: Mild generalized cerebral atrophy Sinuses/Mastoids: Clear. Septal deviation to the right. Bones: No fracture. CT/Brain/Head without Contrast IMPRESSION: 1. Low-density in the right temporal and occipital lobe and also of the right cerebellar hemispheresuggestive of vasogenic edema likely from underlying masses. This is new compared to December 13, 2024. Mild subfalcine herniation to the left 6.4 mm. Contrast-enhanced MRI may be helpful. 2. No hemorrhage. Reading Location: [id number] CC: Dr. Gwen Helm DO; Dr. Andrew Billingsley MD ~ Grab Hooker: Signed [facility]03-20-2025 Evaluation note* Diagnosis Onset Date Resolution Status Admit Date Hypertension chronic January 27, 2025 2:18pm [facility] Work Phone: 1(574) 991-487307-05-2023 History of Present illness Narrative* Lynne Aparicio APRN.[employer] - 05/14/2023 1:01 PM EDT Subjective HPI [...] SURG CHOLECYSTECTOMY 09/2009 PAST SURGICAL HISTORY OF [id number] bilat knee arthroscopic TONSILLECTOMY & ADENOIDECTOMY <AGE [...] s/s. - AMBULATORY EAR LAVAGE/IRRIGATION Lynne Aparicio APRN.[employer] documented in [facility]11-[facility]-2022 Miscellaneous Notes* Telephone Encounter - Ying Pacheco - 09/11/2022 9:58 AM EDT PCP updated in [facility] * Telephone Encounter - King Mullen MD - 09/10/2022 3:06 AM EDT Please contact patient and update PCP as requested-my chart message King Mullen MD documented in this encounterMiddletown [facility]08-31-2022 Note Date of Service 07/10/2022 Chief Complaint [...] Result Date: July 09, 2022 Verified By: AUSTEN KEY DO CLINICAL STATEMENT: IMPRESSION: Postsurgical changes related [...] by KEVIN CARRASCO on 07/10/2022 05:29 PM [facility]08-31-2022 Nurse Discharge summary Discharged to home with . Escorted to the exit via w/c lidia Akbar RN. Left at 1300. [facility]08-31-2022 Note Discharge Instructions Thank you for allowing [facility] to assist you with your healthcare needs. The following is importantdischarge information regarding your hospital visit. Your Care Team [facility] Your Diagnosis S/P total hip arthroplasty HTN (hypertension) GERD (gastroesophageal reflux disease) What to do next Follow Up Appointments Follow Up with NAT KHALIL PA-C, Orthopedic When 07/22/2022 03:30 PM EDT Why: This is your post-op appointment. Follow-up as scheduled. Where: [facility] [address] [place] [id number]- Follow Up with [facility] When 07/12/2022 09:30 AM EDT Why: This is your first physical therapy appointment. Follow-up as scheduled. Where: [facility] [place] [address]- [phone] The Following Activity and Diet Have Been [...] to exceed 3000 mg/ day Pickup at [facility] 07/10/22 9:36am New aspirin (aspirin 81 mg oral delayed release tablet) 1 tab(s) by mouth Two (2) times a day Duration: 30 Days Take 81 mg aspirin twice daily with food for 4 weeks postoperatively for DVT prophylaxis Pickup at [facility] 07/10/22 9:36am New docusate-senna (Senokot S 50 mg-8.6 mg oral tablet) 2 tab(s) by mouth Two (2) times a day Take until first bowel movement, then as needed Pickup at [facility] 07/10/22 9:36am New meloxicam (Mobic 7.5 mg oral tablet) 1 tab(s) by mouth Twice daily with meals Do not take any other nonsteroidal anti-inflammatories while on meloxicam/ Mobic Pickup at [facility] start 07/11/22 New oxyCODONE (oxyCODONE 5 mg oral tablet ( IMMEDIATE release )) See instructions S/P total hip arthroplasty 1-2 tab(s) Oral q4h Pickup at [facility] 07/10/22 9:36am Unchanged amLODIPine (amLODIPine 5 [...] before a meal 07/10/22 6am Pharmacy Information [facility]: [address] [place], [place] [id number] [phone] Please take this list to your next [...] What is aspirin? Aspirin is a salicylate (df-GWS-ku-ate) that is used to treat pain, and [...] may report side effects to FDA at 0-122-JUU-4985. What other drugs will affect aspirin? Ask [...] drugs may affect aspirin, including prescription and yolu-unx-lnykxyx medicines, vitamins, and herbal products. Not all [...] to ensure that the information provided by [employer]. ('Mult[employer]') is accurate, up-to-date, and complete, but no guarantee is made to that effect. Drug information contained herein may be time sensitive. Mila information has been compiled for use by healthcare practitioners and consumers in the [place] and therefore [employer] does not warrant that uses outside of the [place] are appropriate, unless specifically indicated otherwise. [employer] drug information does not endorse drugs, diagnose patients or recommend therapy. [employer] drug information isan informational resource designed to [...] effective or appropriate for any given patient. [employer] does not assume any responsibility for any aspect of healthcare administered with the aid of information [employer] provides. The information contained herein is not intended to cover all possible uses, directions, precautions, warnings, drug interactions, allergic reactions, or adverse effects. If you have questions about the drugs you are taking, check with your doctor, nurse or pharmacist. Copyright 0851-6277 [employer]. Version: 16.03. Revision Date: 05/07/2021. docusate and [...] may report side effects to FDA at 4-635-HPP-2800. What other drugs will affect docusate and senna? Other drugs may affect docusate and senna, including prescription and bhmo-hwt-pgtsmqx medicines, vitamins, and herbal products. Tell your [...] to ensure that the information provided by [employer]. ('Graphic[employer]um') is accurate, up-to-date, and complete, but no guarantee is made to that effect. Drug information contained herein may be time sensitive. Mila information has been compiled for use by healthcare practitioners and consumers in the [place] and therefore [employer] does not warrant that uses outside of the [place] are appropriate, unless specifically indicated otherwise. [employer] drug information does not endorse drugs, diagnose patients or recommend therapy. [employer] drug information isan informational resource designed to [...] effective or appropriate for any given patient. [employer] does not assume any responsibility for any aspect of healthcare administered with the aid of information [employer] provides. The information contained herein is not intended to cover all possible uses, directions, precautions, warnings, drug interactions, allergic reactions, or adverse effects. If you have questions about the drugs you are taking, check with your doctor, nurse or pharmacist. Copyright 0234-6405 [employer]. Version: 3.02. Revision Date: 01/24/2021. oxycodone (ox [...] The extended-release form of oxycodone is for juxbax-qja-ooipk treatment of pain and should not be [...] against the law. Stop taking all other tqmwsu-amu-vhmxw opioid pain medicines when you start taking [...] may report side effects to FDA at 4-619-EBS-9647. What other drugs will affect oxycodone? You [...] drugs may affect oxycodone. This includes prescription ytjuqhg-jun-mxybnye medicines, vitamins, and herbal products. Not all [...] to ensure that the information provided by [employer]. ('Multum') is accurate, up-to-date, and complete, but no guarantee is made to that effect. Drug information contained herein may be time sensitive. Mila information has been compiled for use by healthcare practitioners and consumers in the [place] and therefore Mila does not warrant that uses outside of the [place] are appropriate, unless specifically indicated otherwise. [employer] drug information does not endorse drugs, diagnose patients or recommend therapy. [employer] drug information isan informational resource designed to [...] effective or appropriate for any given patient. [facility] does not assume any responsibility for any aspect of healthcare administered with the aid of information [facility] provides. The information contained herein is not intended to cover all possible uses, directions, precautions, warnings, drug interactions, allergic reactions, or adverse effects. If you have questions about the drugs you are taking, check with your doctor, nurse or pharmacist. Copyright 3461-4708 [employer] [facility]. Version: 14.. Revision Date: 12/07/2020. meloxicam (oral/injection) (carlos OKS i clinton) Anjeso, Mobic, Qmiiz ODT, Vivlodex What is the most [...] may report side effects to FDA at 5-265-NFH-8148. What other drugs will affect meloxicam? Ask [...] drugs may affect meloxicam, including prescription and pknu-yhx-jwwgqwv medicines, vitamins, and herbal products. Not all [...] to ensure that the information provided by [employer]. ('Mult[employer]') is accurate, up-to-date, and complete, but no guarantee is made to that effect. Drug information contained herein may be time sensitive. Mila information has been compiled for use by healthcare practitioners and consumers in the [place] and therefore Mila does not warrant that uses outside of the [place] are appropriate, unless specifically indicated otherwise. [employer] drug information does not endorse drugs, diagnose patients or recommend therapy. [employer] drug information isan informational resource designed to [...] effective or appropriate for any given patient. [employer] does not assume any responsibility for any aspect of healthcare administered with the aid of information Mil[employer] provides. The information contained herein is not intended to cover all possible uses, directions, precautions, warnings, drug interactions, allergic reactions, or adverse effects. If you have questions about the drugs you are taking, check with your doctor, nurse or pharmacist. Copyright 0899-4445 [employer]. Version: 14.. Revision Date: 09/12/2020. Education Materials [facility] Post-operative Instructions PLEASE FOLLOW [facility] POST-OP INSTRUCTIONS GIVEN WATCH FOR SIGNS OF INFECTION: call the office ([phone]) if experencing any of the following: (Usually [...] on your follow up instructions. Form: 338A (47395) R: 03/16 Additional Information VACCINATE! IT SAVES LIVES! Members of the community who have not yet received the COVID-19 vaccine and would like to receive it can visit one of [facility] vaccine clinics. There are many vaccine clinic locations within the [facility]. For locations and available times, please visit [email or web address] It is important to note that some COVID mobile vaccine clinics are held outdoors and may be canceled in rainy or stormy conditions. To learn more about pediatric vaccinations (ages 5-11), we invite you to visit the [facility] webpage. [email or web address]://[email or web address].org/[email or web address]-Usetx-Wympiaurvkr-Pfniymrdha-Xxshc-Qzr stions.htmlTo learn more about the COVID-19 vaccine, we invite you to visit the [employer] website for a list of frequently asked questions. [email or web address]-iwc-Osuyuttx/ejvbg-Bcldlqj-Hveqpqhpro _Asked-Questions.pdf [facility] Patient Portal Access Instructions: Stay connected with your healthcare team and access your personal medical information anytime with the [facility] Patient Portal.If you would like a full copy of your medical records, please contact the [facility] Medical Records Department, Friday through Friday between 8a.m. and 4:30p.m. Please follow the directions below to access the portal: 1.Access the email account you provided upon registration to the hospital.2.Look for an invitation email from [facility].3.Open the email and access the invitation link: Accept Invitation to [facility]4.Fill in the required stafford to create your account. Sign into www.Woto with your username and password that you [...] you will allow to register on the [facility] Portal for access to your information. You can also access the [facility] on the Popego emma. Simply click on Health Records under Casabu and then click on the [facility] logo. HOW TO SAFELY DISPOSE OF PRESCRIPTION [...] Call your local pharmacy or go to [email or web address] to find one close to you.3.Make use of household items: Use cat litter or old coffee grounds to dispose medications if other options arenot available. Mix your drugs with these household products, seal them in an airtight container andthrow it into the garbage. Call [facility]: [phone] to be sure your drugs can be [...] combine opioids wit (more content not included)... [place] [address]-31-2022 Hospital Discharge instructions Patient Education 07/10/2022 07:49:56 5 - [facility] Post-op Instruction 06/2017 (02762) [facility] Post-operative Instructions PLEASE FOLLOW [facility] POST-OP INSTRUCTIONS GIVEN WATCH FOR SIGNS OF INFECTION: call the office ([phone]) if experencing any of the following: (Usually [...] on your follow up instructions. Form: 338A ([id number]) R: 03/16 Follow Up Care 05/22/2022 07:41:52 With:[facility] Address: [address] [place] [id number] [phone] When:07/12/2022 09:30:00 Comments:This is your first physical therapy appointment. Follow-up as scheduled. With:NAT KHALIL PA-C, Orthopedic Address: [facility] [address] [place] [id number] When:07/22/2022 15:30:00 Comments:This is your post-op appointment. Follow-up as scheduled. [facility] 08-31-2022 Note Date of Service July 10, [...] controlled. She would like her prescriptions [employer] drug [place] in [facility] She has outpatient physical therapy established. She [...] NAT KHALIL PA-C on 07/10/2022 07:49 AM [place] [address]-30-2022 Note ORIGINAL Images acquired, not reported on this accession number. [facility]08-30-2022 Note ORIGINAL Images acquired, not reported on this accession number.[place] [address]-30-2022 Nurse Discharge summary 06-29-22 10:10 Umair Carpio notified of pt being sent to med-surg unit on continuous pulse ox overnightrelated to the administration of Demerol 25mg. Umair is agreeable. Pt sent to room 236 under observation status. Merry Esquivel aware of continuous pulse ox over night and gives verbal understanding. Glen Becker RN . [facility]08-30-2022 Note ORIGINAL EXAMINATION: ONE XRAY VIEW OF [...] Sign Date: 07/09/2022 9:52:04 AM Ordering Provider: [facility]08-30-2022 Note ORIGINAL EXAMINATION: ONE XRAY VIEW OF [...] Sign Date: 07/09/2022 9:52:04 AM Ordering Provider: [facility]08-30-2022 Anesthesiology Consult note Patient: CHRISTINA MACIAS Age: [...] Mother Heart attack Father Procedure history: Knee ([id number]). Comments: 06/28/2022 9:25 Carmelina Kwan RN bilateral knee scope Cholecystectomy ([id number]). Cataracts ([id number]). Comments: 06/28/2022 9:25 Carmelina Kwan RN bilateral [...] Resp Rate 14 br/min (JUL 09 05:49) ZIK412 mmHg (JUL 09 05:49) DBP73 mmHg (JUL 09 05:49) Measurements from flowsheet : Measurements 07/09/2022 5:49 EDT Height 167.6 cm Height in inches 66 inch(es) Admission Weight 90.9 kg Weight Lbs 200 lb Weight Method Stated [place] Body Weight 59.26 kg Admission Body Mass [...] Weight Lbs 200 lb Weight Method Stated [place] Body Weight 59.26 kg Admission Body Mass [...] On and Limits Checked Nail Bed Color [place]angee Capillary Refill < 2 seconds Heart Sounds ICU S1S2 Heart Rhythm Regular All Lobes Breath Sounds Clear Oxygen Therapy Room air Oxygen Saturation 97 % Abdomen Description Non-distended, Symmetric, Soft Abdomen Palpation Non-Tender, Soft Bowel Sounds All Quadrants Present Urinary Elimination Voiding, no difficulties Skin Temperature Warm Skin Description [place], Normal for ethnicity Skin Integrity Intact Skin [...] Cooperative Orientation Oriented x 4 Allergies Yes Watch Dial Maker On Yes Consent Form Signed Yes Patient [...] Safety Brochure Information Reviewed Unable to complete [facility] Video Viewed No Teaching Evaluation No further teaching needed Admission Note-Nursing Same Day Patient History (Modified) . Assessment and Plan [place] Society of Anesthesiologists (ASA) physical status classification: Class III. Anesthetic Preoperative Plan Anesthetic technique: Spinal. Postoperative pain management: Per surgeon. Risks discussed: nausea, vomiting, hypotension, allergic reaction, serious complications. Informed consent: signed by patient. Digitally Signed by UMAIR CARPIO on 07/09/2022 06:42 AM [facility]07-06-2022 History of Present illness Narrative * King [...] SURG CHOLECYSTECTOMY 09/2009 PAST SURGICAL HISTORY OF [id number] bilat knee arthroscopic TONSILLECTOMY & ADENOIDECTOMY <AGE [...] No history of dysuria, frequency or incontinence UROLOGIST PHYSICIAN: Negative for abnormal vaginal bleeding, abnormal vaginal [...] labs King Mullen MD documented in this encounterMiddletown Hospital07-06-2022 Nurse Note* Nati Estes LPN - [...] 167.6 cm (5' 6) documented in this encounterMiddletown Hospital07-06-2022 Instructions* Patient Instructions* Nati Estes LPN - 05/15/2022 8:48 AM EDT [facility] FACTS LAB HOURS: [facility] lab is open from 7:30am to 6pm M-, open from 7:30am-5pm on Friday and open 8am-12pm on Friday. Closed on Friday [facility] is open from 7:30am to 5pm [...] 24 hours prior to the scheduled exam. [facility] Care -- No appointment needed At the [facility], patients 2 years and older can get walk-in medical attention for common healthproblems including: Cold and flu symptoms Conjunctivitis Ear and throat infections Minor bumps and cuts Seasonal allergies Skin rashes Simple sprains and strains Sinus infections Urinary tract infections Upper respiratory tract infections Locations and Times [facility] - [address] [facility] - [address] [place] [address] - Friday through Friday 6 AM - 9 PM - Friday and Friday 8 AM - 4 PM For Express Care LOCATIONS, HOURS OF OPERATION and CURRENT WAIT TIMES, visit the following link fordetails. [email or web address]/locations?dFR[[email or web address]][[email or web address]]=Express%20Care%20Clinics& Emergency Department [place] [facility] - [address] [facility] (off of [facility]), [facility] [phone] Pharmacy Hours: Friday through Friday 8 am to 6 pm Opt in to receive text reminders for your appointments with [facility] health specialist today. To opt in, text [phone] to [phone]. My Chart Schedule My Appointment enables you to view your established primary care provider's open schedule and book an appointment online in real-time. This feature is available in internal medicine, family medicine, or pediatrics at any of our [facility] locations and main campus. documented in this encounterMiddletown Hospital06-06-2022 History of Present illness Narrative* Flori Miranda - 04/15/2022 3:19 PM EDTSummary: Mamm[facility] Provider Action/FYI First time contacting patient. Received referral from [facility] for MAMMOGRAM Screening. Spoke with patient about [...] Provider/Practice: NO Flori Miranda documented in this encounterMiddletown Hospital04-04-2022 Miscellaneous Notes* Telephone Encounter - Mariella Reddy MD - 02/11/2022 4:13 PM EDT The following approved medication requests have been transmitted electronically. Signed Prescriptions Disp Refills amLODIPine (NORVASC) 5 mg tablet 180 tablet 2 Sig: Take 1 tablet by mouth twice daily. BARTOLOME: No Authorizing Provider: MARIELLA ERDDY E lisinopril (ZESTRIL, PRINIVIL) 20 mg tablet 180 tablet 2 Sig: Take 1 tablet by mouth in the morning and 1 tablet in the evening BARTOLOME: No Authorizing Provider: MARIELLA REDDY E Mariella Reddy MD * Telephone Encounter - [...] advise. Britt Oshea MA documented in this encounterMiddletown Hospital04-04-2022 Miscellaneous Notes* Telephone Encounter - Mariella [...] advise. Britt Oshea MA documented in this encounterMiddletown Hospital11-09-2021 History of Past illness Narrative* Problem [...] of this encounter (statuses as of 02/11/2022) [facility] History of Past illness Narrative* Problem [...] of this encounter (statuses as of 04/15/2022) [facility] History of Past illness Narrative* Problem [...] of this encounter (statuses as of 05/15/2022) [facility] History of Past illness Narrative* Problem [...] of this encounter (statuses as of 09/11/2022) [facility] History of Past illness Narrative* Problem [...] of this encounter (statuses as of 05/14/2023) [facility]11-09-2021 NoteHNO ID: [id number] Author: RT Promise(R) Service: ? Author Type: [...] BY: RT Promise(R) September 18, 2021 6:02 AMMered[facility]Evaluation + [facility] note Future Appointments [facility] Evaluation note* Diagnosis HTN (hypertension), benign Essential hypertension, benign documented in this encounter [facility] note* Diagnosis HTN (hypertension), benign- Primary Essential hypertension, benign Prediabetes Other abnormal glucose Hyperlipidemia, unspecified hyperlipidemia type Vitamin D deficiency Unspecified vitamin D deficiency Primary osteoarthritis of right hip Primary localized osteoarthrosis, pelvic region and thigh Preop examination Preoperative examination, unspecified documented in this encounter [facility] note* Diagnosis Onset Date Resolution Status Colitis acute Hypokalemia acute Status post total hip replacement, right acute Vomiting acute [facility] Work Phone: Evaluation note* Diagnosis Onset Date Resolution Status Colitis acute Status post total hip replacement, right acute Hypokalemia resolved Vomiting resolved Diverticulosis acute Status post total hip replacement, right acute Hypertension chronic Encounter to establish care noneactive [facility] Work Phone: Evaluation note* Diagnosis Bilateral impacted cerumen- Primary Impacted cerumen documented in this encounter [facility] noteNo assessment information [facility] Work Phone: Evaluation note* Diagnosis Diverticulitis- Primary Diverticulitis of colon (without mention of hemorrhage) Diverticulitis Diverticulitis of colon (without mention of hemorrhage) 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 documented in this encounter [facility] note* Diagnosis Diverticulitis- Primary Diverticulitis of colon (without mention of hemorrhage) Diverticulitis Diverticulitis of colon (without mention of hemorrhage) 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 Malignant neoplasm metastatic to brain (HCC) Secondary malignant neoplasm of brain and spinal cord documented in this encounter [facility] course Narrative No data available for this section [facility] Discharge instructions No data available for this section [facility] Reason for referral (narrative)No reason for referral information availableWMet[facility] Work Phone: Summary Purpose Family History No [...] FoundDocuments on File Type Date Recorded Patient Assistant Department Manager Expl anation Advance Directive(s) 09/18/2021 5:41 AM [...] Will No July 12 4:18pm Power of Vice President Quality Improvement No July 12, 2022 4:18pm Advance Directive Response Recorded Date/ Time Name of Medical Power of Vice President Quality Improvement Jt Crissing er July 12, 2022 10:08pm Living Will Yes July 12 10:08pm Power of Vice President Quality Improvement Yes July 12, 2022 10:08pm Documents on File Type Date Recorded Patient Assistant Department Manager Expl anation Advance Directive(s) 01/24/2009 8:49 PM Advance Directive(s) 01/19/2009 8:05 PM Advance Directive(s) 07/27/2008 Advance Directive Response Recorded Date/ Time Name of Medical Power of Vice President Quality Improvement Jt Crissing er July 12, 2022 9:08pm Living Will Yes July 12 9:08pm Power of Vice President Quality Improvement Yes July 12, 2022 9:08pm Advance Directive Response Recorded Date/ Time Living Will Yes July 12 10:08pm Power of Vice President Quality Improvement Yes July 12, 2022 10:08pm Advance Directive Response Recorded Date/ Time Living Will Yes December 14 12:11am Do you have a Healthcare Power of Vice President Quality Improvement? Yes December 14, 2024 12:11am Name of Medical Power of Vice President Quality Improvement December 14, 2024 12:11am Advance Directive Response Recorded Date/ Time Do you have a Healthcare Power of Vice President Quality Improvement? Yes July 11, 2025 10:42am Date Activated Date Inactivated Comments 07/11/2025 9:50 PM 07/14/2025 7:13 PM Question Answer Comments Full Code Order Discussed With: Patient Hospital Course Note HNO ID: [id number] Author: Tee Coburn Service: Hospital Medicine Author [...] EORDER Chief Complaint Admit Date HEADACHE, HTN December 13, 2024 9 :01pm INT LABS January 20, 2025 9:0 3am BP FU January 27, 2025 2:1 8pm Reason for Visit Admit Date Hypertension January 27, 2025 2:1 8pm Chief Complaint Admit Date dizziness July 11, 2025 10:42am Chief Complaint Admit Date dizziness July 11, 2025 10:42am [facility] Discharge FU Gita 16th, 2025 7:49am Additional Source Comments INFORMATION SOURCE (unrecogn ized section and content) DATE CREATED AUTHOR 03/17/2019 [facility] DATE CREATED AUTHOR AUTHOR'S ORGANIZ ATION 09/20/2021 [facility] DATE CREATED AUTHOR AUTHOR'S ORGANIZ ATION 07/16/2022 [facility] ([place]) DATE CREATED AUTHOR AUTHOR'S ORGANIZ ATION 07/27/2025 [facility] DATE CREATED AUTHOR AUTHOR'S ORGANIZ ATION 08/04/2025 [facility] DATE CREATED AUTHOR AUTHOR'S ORGANIZ ATION 08/05/2025 [facility] Source Comments (unrecognize d section and content) In the event this informatio n is protected by the Federal Confidentiality of Alcohol and Drug Abuse Patient Records regulations: The Federal rules restrict any use of the information to criminally investigate or prosecute any alcohol or drug abuse patient.[facility] the event this information is protected by the Federal Confidentiality of Alcohol and Drug Abuse Patient Records regulations: The Federal rules restrict any use of the information to criminally investigate or prosecute any alcohol or drug abuse patient.[facility] HospitalIn the event this information is protected by the Federal Confidentiality of Alcohol and Drug Abuse Patient Records regulations: The Federal rules restrict any use of the information to criminally investigate or prosecute any alcohol or drug abuse patient.[facility] HospitalIn the event this information is protected by the Federal Confidentiality of Alcohol and Drug Abuse Patient Records regulations: The Federal rules restrict any use of the information to criminally investigate or prosecute any alcohol or drug abuse patient.[facility] HospitalIn the event this information is protected by the Federal Confidentiality of Alcohol and Drug Abuse Patient Records regulations: The Federal rules restrict any use of the information to criminally investigate or prosecute any alcohol or drug abuse patient.[facility] HospitalIn the event this information is protected by the Federal Confidentiality of Alcohol and Drug Abuse Patient Records regulations: The Federal rules restrict any use of the information to criminally investigate or prosecute any alcohol or drug abuse patient.[facility] HospitalIn the event this information is protected by the Federal Confidentiality of Alcohol and Drug Abuse Patient Records regulations: The Federal rules restrict any use of the information to criminally investigate or prosecute any alcohol or drug abuse patient.[facility] HospitalIn the event this information is protected by the Federal Confidentiality of Alcohol and Drug Abuse Patient Records regulations: The Federal rules restrict any use of the information to criminally investigate or prosecute any alcohol or drug abuse patient.[facility] HospitalIn the event this information is protected by the Federal Confidentiality of Alcohol and Drug Abuse Patient Records regulations: The Federal rules restrict any use of the information to criminally investigate or prosecute any alcohol or drug abuse patient.[facility] HospitalIn the event this information is protected by the Federal Confidentiality of Alcohol and Drug Abuse Patient Records regulations: The Federal rules restrict any use of the information to criminally investigate or prosecute any alcohol or drug abuse patient.[facility] HospitalIn the event this information is protected by the Federal Confidentiality of Alcohol and Drug Abuse Patient Records regulations: The Federal rules restrict any use of the information to criminally investigate or prosecute any alcohol or drug abuse patient.[facility] HospitalIn the event this information is protected by the Federal Confidentiality of Alcohol and Drug Abuse Patient Records regulations: The Federal rules restrict any use of the information to criminally investigate or prosecute any alcohol or drug abuse patient.[facility] Reason for Visit (unrecogniz ed section and content) Reason Onset Date Comments Refill Request 02/09/2022 Reason Onset Date Comments Appointment 04/15/2022 [facility] Reason Comments Medical Clearance Reason Comments Ear Problem Left ear feels clogg ed x 1 day Reason Comments Established Patient Reason Comments New Patient Reason Comments Consult Reason Comments [facility] scheduling Care Teams (unrecognized sec tion and content) Senior Contract Specialist Relationship Specialty Start Date End Date King Mullen MD [address] [place] [address] PCP - General Family Practice 04/19/14 Sahil Onofre MD Primary Staff Physician Cardiology 01/26/19 Senior Contract Specialist Relationship Specialty Start Date End Date King Mullen MD [address] [place] [address] PCP - General Family Practice 04/19/14 Sahil Onofre MD Primary Staff Physician Cardiology 01/26/19 Senior Contract Specialist Relationship Specialty Start Date End Date King Mullen MD [address] [place] [address] PCP - General Family Practice 04/19/14 Sahil Onofre MD Primary Staff Physician Cardiology 01/26/19 Senior Contract Specialist Relationship Specialty Start Date End Date King Mullen MD [address] [place], [place] [id number] PCP - General Family Medicine 04/19/14 09/09/22 Adnrew Billingsley MD [address] [place], [place] [id number] PCP - General Internal Medicine 09/11/22 Sahil Onofre MD Primary Staff Physician Cardiology 01/26/19 Senior Contract Specialist Relationship Specialty Start Date End Date Andrew Billingsley MD [address] [place] [address] PCP - General Internal Medicine 09/11/22 Sahil Onofre MD Primary Staff Physician Cardiology 01/26/19 [...] End: December 14, 2024 Dr. Thomas Quintanilla , Attending Provider Active Start: December 13, 2024 End: December 14, 2024 Dr. Thomas Quintanilla , Emergency Provider Active Start: December 13, 2024 [...] 2025 End: January 27, 2025 Dr. Andrew Billinsgley MD Attending Provider Active Start: January 27, 2025 End: January 27, 2025 Team Status: Active Member Role/Relationship Status Dates Dr. Andrew Billingsley MD Primary Care Provider Active Team Status: Active Member Role/Relationship Status Dates Dr. Andrew Billingsley MD Primary Care Provider Active Start: July 05, 2025 Dr. Andrew Billingsley MD Attending Provider Active Start: July 05, 2025 Dr. Andrew Billingsley MD Referring Provider Active Start: July 05, 2025 Team Status: Inactive Member Role/Relationship Status Dates Dr. Andrew Billingsley MD Primary Care Provider Active Start: July 11, 2025 End: July 11, 2025 Dr. Gwen Helm DO Emergency Provider Active Start: July 11, 2025 End: July 11, 2025 Team Status: Inactive Member Role/Relationship Status Dates Dr. Andrew Billingsley MD Primary Care Provider Active Start: July 05, 2025 End: July 05, 2025 Dr. Andrew Billingsley MD Attending Provider Active Start: July 05, 2025 End: July 05, 2025 Dr. Andrew Billingsley MD Referring Provider Active Start: July 05, 2025 End: July 05, 2025 Senior Contract Specialist Relationship Specialty Start Date End Date Andrew Billingsley MD [address] [place] [address] PCP - General Internal Medicine 09/11/22 Sahil Onofre MD Primary Staff Physician Cardiology 01/26/19 Senior Contract Specialist Relationship Specialty Start Date End Date Andrew Billingsley MD [address] [place] [address] PCP - General Internal Medicine 09/11/22 Sahil Onofre MD Primary Staff Physician Cardiology 01/26/19 Senior Contract Specialist Relationship Specialty Start Date End Date Andrew Billingsley MD [address] [place] [address] PCP - General Internal Medicine 09/11/22 Sahil Onofre MD Primary Staff Physician Cardiology 01/26/19 Senior Contract Specialist Relationship Specialty Start Date End Date Andrew Billingsley MD [address] [place] [address] PCP - General Internal Medicine 09/11/22 Sahil Onofre MD Primary Staff Physician Cardiology 01/26/19 Senior Contract Specialist Relationship Specialty Start Date End Date Andrew Billingsley MD [address] [place] [address] PCP - General Internal Medicine 09/11/22 Sahil Onofre MD Primary Staff Physician Cardiology 01/26/19 Team Status: Inactive Member Role/Relationship Status Dates Dr. Andrew Billingsley MD Primary Care Provider Active Start: July 11, 2025 End: July 11, 2025 Dr. Gwen Helm DO Attending Provider Active Start: July 11, 2025 End: July 11, 2025 Dr. Gwen Helm DO Emergency Provider Active Start: July 11, 2025 End: July 11, 2025 Team Status: Inactive Member Role/Relationship Status Dates Dr. Andrew Billingsley MD Primary Care Provider Active Start: July 26, 2025 End: July 26, 2025 Dr. Andrew Billingsley MD Attending Provider Active Start: July 26, 2025 End: July 26, 2025 Care Team (unrecognized sect ion and content) Care Team Personnel Name: KING MULLEN MD Member Role: Primary Care Physician Address: Address: [address] Care Team Related Persons Name: JT MACIAS Address: Home [address] [place] [address] [place] [address] Care Team Personnel Name: KING MULLEN MD Member Role: Primary Care Physician Address: Address: [address] Care Team Related Persons Name: JT MACIAS Address: Home [address] [place] [address] Goals (unrecognized section and content) Goals may [...] BE BASED ON THE PRIMARY CLINICAL RECORDS. [employer] [facility]. provides no warranty or guarantee of the accuracy or completeness of information in this document.
--- NOTE | 2025-08-05 07:10 | CT_ITS ---
PROCEDURE: ABDOMEN/PELVIS W IV CONT ONLY 08/05/2025 REASON FOR EXAM: NAUSEA Squamous cell cancer. TECHNIQUE: Procedure Code: [id number] Modality: CT Procedure: ABDOMEN/PELVIS W IV CONT ONLY Coronal and Sagittal reconstruction series were provided. CONTRAST: Isovue 370 VOLUME: 100 mL One or more dose reduction techniques were used (e.g., Automated exposure control, adjustment of the mA and/or kV according to patient size, use of iterative reconstruction technique. RADIATION DOSE SUMMARY: CTDlvol: 31 mGy DLP: 710 mGycm COMPARISON: July 2022. FINDINGS: Lung bases: Negative. ABDOMEN Liver: New complex masses of the liver with rim enhancement. At least 6 such lesions. Largest 2.9 cm. . Largest number in the right lobe of liver. Biliary system: Mild prominence of the common bile duct maximum dimension of 1.8 cm. Intrahepatic ductal dilatation as well. Gallbladder: Removed. Scratch Spleen: Negative. Pancreas: Negative. Adrenals: Complex right adrenal metastatic lesion measures 3.7 by 4.2 cm. Left adrenal gland negative. Kidneys: Negative. Negative for kidney stones, cysts or masses. Bowel: Moderate increased stool throughout the colon. Diverticulosis. Negative for small or large-bowel obstruction. Appendix: The appendix is not identified. There is no inflammatory process identified in the right lower quadrant to suggest appendicitis. Vasculature: Moderate atherosclerotic vascular calcifications of the abdominal aorta and its branches. Peritoneum / Retroperitoneum: Negative. PELVIS Lymph nodes: Negative for inguinal or iliac adenopathy. Bladder: Negative. Reproductive Organs: Atrophy of the uterus. No pelvic mass. Bones and Soft Tissues: Bony metastatic disease of the lower thoracic spine most prominent in the right T11 vertebral body. Additionally is metastatic disease at L3 L4. Right hip arthroplasty. No pathologic fractures. CT/Abdomen/Pelvis W IV Cont ONLY IMPRESSION: Hepatic metastatic disease. Right adrenal metastatic disease. Bony metastatic disease. Constipation. Negative for acute intra-abdominal or pelvic pathology. Reading Location: [id number]
[2025-08-05 08:02] LABS: Magnesium 2.1 mg/dL (1.5-2.2)
--- NOTE | 2025-08-05 08:02 | ED.RN ---
Pts step son came to the desk and wanted to give me some background information on patient. Pt was offered hospice at one of her appts. Pt declined due to taking care of her that is in the beginning stages of dementia. is also trying to take care of the pt and is having difficulty. Pt has declined to have family present at her appts and didn't tell the spouse that she had called 911. Step son is concerned for both of their well being. I told Dr Quintanilla and will also have high school social studies tutor follow up with the pt.
[2025-08-05 08:08] LABS: AST(SGOT) 21 U/L (<=31); Alanine Aminotransfer ALT/SGPT 23 U/L (<=34); Albumin, Serum 3.8 g/dL (3.4-4.8); Alkaline Phosphatase 113 U/L (35-104); Anion Gap 14 (5-15); BUN 30 mg/dL (4-19); BUN/Creat Ratio 58.4 RATIO (10-20); Bilirubin, Direct 0.42 mg/dL (0.00-0.30); Calcium,Total 9.9 mg/dL (7.6-11.0); Carbon Dioxide 26.1 mmol/L (21.0-32.0); Chloride 94 mmol/L (98-108); Estimated Creatinine Clearance 60.38 ml/min (50-250); Globulin 2.2 g/dL (2.2-4.2); Glucose 153 mg/dL (70-99); Potassium 3.0 mmol/L (3.3-5.1)
--- NOTE | 2025-08-05 08:10 | RAD_ITS ---
PROCEDURE: CHEST 1 VIEW (PORTABLE) 08/05/2025 REASON FOR EXAM: FATIGUE TECHNIQUE: Two-view AP portable upright chest. COMPARISON: None provided. RAD/Chest 1 View (Portable) IMPRESSION: Prominent right upper lobe airspace disease is seen, also with marked elevation of the minor fissure. Although the main finding is significant right upper lobe atelectasis, cannot exclude the presence of pne umonitis, or even, additionally, obstructing malignancy. Consider further evaluation with contrasted thoracic CT at this ti ga. No evidence of pulmonary edema. No pleural effusion or pneumothorax is noted. The cardiomediastinal silhouette is remarkable for a partially calcified aorta. No acute osseous change is seen. Reading Location: [id number]
--- NOTE | 2025-08-05 08:16 | EX.ED.DYSGE1 ---
HPI <Dr. Thomas Quintanilla DO - Last Filed: 08/12/25 02:01> History of Present Illness Chief Complaint: General Illness Informant: patient and spouse/S.O. 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 She states she is not taking chemotherapy or radiation but underwent gamma knife treatment as recently as last week. According to the patient and her she is not been eating or drinking well and has had increased weakness. She states she feels overall horrible. The has concern based on her lack of oral intake and her increasing weakness and therefore she was brought in for evaluation. The patient states she has mild nausea but this has been chronic in nature. She denies fevers chills vomiting dysuria or diarrhea. However with her worsening fatigue she presents for evaluation [facility] <Dr. Thomas Quintanilla DO - Last Filed: 08/12/25 02:01> [facility] Medical History Metastasis to brain Metastatic squamous cell carcinoma Diverticulitis Vision problems GERD (gastroesophageal reflux disease) Pneumonia Irritable bowel syndrome Migraine Gastrointestinal problem Gallstones Carpal tunnel syndrome Cataracts, both eyes UTI (urinary tract infection) Back problem Arthritis Hypertension Home Medications ?Medication ?Instructions ?Recorded ?Last Taken ?Type cetirizine 10 mg capsule (Zyrtec) 10 mg PO DAILY 08/07/22 Unknown History multivitamin 1 tab PO DAILY 08/07/22 Unknown History probiotic 08/07/22 Unknown History vitamin c 08/07/22 Unknown History aspirin 81 mg tablet,delayed 81 mg PO QDAY 09/15/24 Unknown History release metoprolol succinate 25 mg 25 mg PO QDAY 01/27/25 Unknown History tablet,extended release 24 hr calcium PO DAILY 07/26/25 Unknown History chlorthalidone 25 mg tablet 25 mg PO DAILY #90 tabs 07/26/25 Unknown Rx selenium 50 mcg tablet 50 mcg PO QDAY 07/26/25 Unknown History vitamin E mixed 400 unit capsule 400 unit PO DAILY 07/26/25 Unknown History Allergy/AdvReac Type Severity Reaction Status Date / Time Seasonal Allergies: Uncoded Allergy Intermediate Itching Verified 08/05/25 05:54 Family History Brother Alcoholism Hypertension Mother Cancer lung Hypertension Grandmother Arthritis Hypertension Grandfather Arthritis Hypertension Father Myocardial infarction at 46 years old Hypertension Other Diabetes Diverticular disease Heart disease Surgical History Enlarged tonsils and adenoids Hx of cholecystectomy Hx of arthroscopic knee surgery Status post total hip replacement, right Social History adopted: No household members: spouse housing: apartment current occupational status: retired Smoking Status: Former smoker alcohol intake: never details: occasional beer or ryann substance use type: does not use well-balanced diet: daily or most days caffeine: Yes eating out: 1-3 times/week during the past year weight has: remained stable what type of physical activity do you participate in: walking aleksey/sabianism: Rastafari seatbelt use: always do you feel safe at home: Yes ROS <Dr. Thomas Quintanilla, DO - Last Filed: 08/12/25 02:01> ROS ED Constitutional Constitutional ED: Reports other Details: Positive generalized fatigue ; Denies chills or fever(s) Eyes Eyes: Denies change in vision ENT ENT ED: Denies sore throat Cardiovascular Cardiovascular: Denies chest pain Respiratory/Chest Respiratory/Chest: Denies cough or dyspnea Gastrointestinal Gastrointestinal: Reports nausea; Denies abdominal pain, diarrhea or vomiting Genitourinary Genitourinary ED: Denies dysuria Musculoskeletal Musculoskeletal: Denies myalgias Integumentary Denies rash Neurologic Neurologic: Reports weakness; Denies headache(s) Hematologic/Lymphatic Hematologic/Lymphatic: Denies easy bleeding or easy bruising EXAM <Dr. Thomas Quintanilla, DO - Last Filed: 08/12/25 02:01> Physical Exam Const Vital Signs: 08/05/25 05:54 08/05/25 05:57 08/05/25 08:36 Temperature 97.8 F Temperature Source Oral Pulse Rate 111 H 72 Respiratory Rate 18 16 Respiratory Effort Normal Non-Labored Respiratory Pattern Normal Blood Pressure 183/97 H 159/72 H Blood Pressure Mean 125 101 Pulse Ox 98 99 Oxygen Delivery Method Room Air Room Air 08/05/25 10:39 08/05/25 12:50 08/05/25 13:00 Temperature 98 F Temperature Source Temporal Pulse Rate 80 91 92 Respiratory Rate 14 12 17 Respiratory Effort Respiratory Pattern Blood Pressure 139/53 H Blood Pressure Mean 81 Pulse Ox 98 Oxygen Delivery Method Room Air 08/05/25 13:15 08/05/25 13:30 08/05/25 13:41 Temperature Temperature Source Pulse Rate 93 97 97 Respiratory Rate 16 18 18 Respiratory Effort Respiratory Pattern Blood Pressure 131/74 H Blood Pressure Mean 90 Pulse Ox 97 95 93 Oxygen Delivery Method 08/05/25 13:45 08/05/25 14:00 08/05/25 14:15 Temperature Temperature Source Pulse Rate 97 97 93 Respiratory Rate 18 15 15 Respiratory Effort Respiratory Pattern Blood Pressure 159/80 H Blood Pressure Mean 102 Pulse Ox 94 97 95 Oxygen Delivery Method 08/05/25 14:30 08/05/25 14:45 08/05/25 15:00 Temperature Temperature Source Pulse Rate 92 102 H 93 Respiratory Rate 17 20 H 15 Respiratory Effort Respiratory Pattern Blood Pressure 148/73 H 141/74 H Blood Pressure Mean 95 95 Pulse Ox 94 98 96 Oxygen Delivery Method 08/05/25 15:15 08/05/25 15:30 Temperature Temperature Source Pulse Rate 94 91 Respiratory Rate 14 17 Respiratory Effort Respiratory Pattern Blood Pressure 144/72 H Blood Pressure Mean 92 Pulse Ox 96 96 Oxygen Delivery Method Positive well nourished and well developed General Appearance ED: well developed; Negative for pallor HEENT Reports dry mucous membranes HEENT Narrative: Normocephalic atraumatic No tongue or lip swelling no oral lesions no airway edema or compromise; no secondary findings to suggest infection in the posterior pharynx Mucous membranes are dry and tacky Mouth ED: Yes dry mucous membranes Mouth: dry mucous membranes Eyes PERRL and EOMs intact bilaterally General Eye ED: Negative for scleral icterus Neck supple Neck Narrative: No nuchal rigidity or meningeal signs Chest Wall palpation of chest normal Resp normal respiratory effort and clear to auscultation bilaterally Resp Narrative: Breath sounds are diminished throughout but overall clear to auscultation without signs of respiratory distress Cardio regular rhythm Rate: tachycardic and other Other Details: Tachycardic rate with regular rhythm GI non-tender, non-distended and no masses GI Narrative: Abdomen is soft nontender nondistended with hypoactive bowel sounds No voluntary guarding no rigidity or pulsatile mass Auscultation: hypoactive bowel sounds Palpation: soft Extremity normal to inspection Neuro oriented x3 and CN's II-XII intact bilaterally Sensorium / Orientation: alert Psych mental status grossly normal Skin no rashes or lesions noted and No skin turgor normal Skin Narrative: Skin turgor is increased General Skin Exam: Negative for jaundice or pallor <Dr. Claudia Gomez, DO - Last Filed: 08/05/25 16:16> Physical Exam Const Vital Signs: 08/05/25 05:54 08/05/25 05:57 08/05/25 08:36 Temperature 97.8 F Temperature Source Oral Pulse Rate 111 H 72 Respiratory Rate 18 16 Respiratory Effort Normal Non-Labored Respiratory Pattern Normal Blood Pressure 183/97 H 159/72 H Blood Pressure Mean 125 101 Pulse Ox 98 99 Oxygen Delivery Method Room Air Room Air 08/05/25 10:39 08/05/25 12:50 08/05/25 13:00 Temperature 98 F Temperature Source Temporal Pulse Rate 80 91 92 Respiratory Rate 14 12 17 Respiratory Effort Respiratory Pattern Blood Pressure 139/53 H Blood Pressure Mean 81 Pulse Ox 98 Oxygen Delivery Method Room Air 08/05/25 13:15 08/05/25 13:30 08/05/25 13:41 Temperature Temperature Source Pulse Rate 93 97 97 Respiratory Rate 16 18 18 Respiratory Effort Respiratory Pattern Blood Pressure 131/74 H Blood Pressure Mean 90 Pulse Ox 97 95 93 Oxygen Delivery Method 08/05/25 13:45 08/05/25 14:00 08/05/25 14:15 Temperature Temperature Source Pulse Rate 97 97 93 Respiratory Rate 18 15 15 Respiratory Effort Respiratory Pattern Blood Pressure 159/80 H Blood Pressure Mean 102 Pulse Ox 94 97 95 Oxygen Delivery Method 08/05/25 14:30 08/05/25 14:45 08/05/25 15:00 Temperature Temperature Source Pulse Rate 92 102 H 93 Respiratory Rate 17 20 H 15 Respiratory Effort Respiratory Pattern Blood Pressure 148/73 H 141/74 H Blood Pressure Mean 95 95 Pulse Ox 94 98 96 Oxygen Delivery Method 08/05/25 15:15 08/05/25 15:30 Temperature Temperature Source Pulse Rate 94 91 Respiratory Rate 14 17 Respiratory Effort Respiratory Pattern Blood Pressure 144/72 H Blood Pressure Mean 92 Pulse Ox 96 96 Oxygen Delivery Method MDM <Dr. Thomas Quintanilla, DO - Last Filed: 08/12/25 02:01> MDM MDM Narrative Medical decision making narrative: Patient arrived to the ER hypertensive but has a past medical history of this. She reported a history of metastatic cancer. She overall states she feels unwell but does not have focal symptoms of abdominal pain cough congestion vomiting diarrhea fevers or chills. According to the she has had failure to thrive with poor oral intake. Her physical exam is consistent with dehydration. Therefore at this time in order to assess for a potential secondary infection versus anemia versus electrolyte abnormality versus acute kidney injury basic labs were obtained. The patient's white count is elevated at 21.5 when on the first of the month it was slightly elevated at only 13. With the increase in the white blood cell count there is concern for developing infection and therefore a chest x-ray urine sample and CT of the abdomen pelvis will be obtained. The patient's son arrived to the ER and informed the nursing staff that the patient was reportedly offered palliative care/hospice at her gamma knife treatment last week. However the patient refused it as she states her has dementia and she needs to take care of him. Therefore at this time as the patient is having persistent weakness and failure to thrive secondary to her metastatic cancer she will once again need evaluated by social work to discuss palliative care and treatment planning. At this time the patient's remaining labs and imaging studies as well as evaluation by social work are still pending and therefore should be signed out to the day physician Dr. Gomez I do not feel there is need for antibiotics at this time as the patient is afebrile and not neutropenic. Therefore I will wait and see if the further testing elicits a potential cause of the leukocytosis before starting antibiotic therapy History & Record Review Discussion w/independent historian: Patient and Significant other Lab Data Attestation: I reviewed the patient's lab results. Labs: Laboratory Results - last 24 hr 08/05/25 08/05/25 08/05/25 06:30 07:17 08:30 WBC 21.5 H RBC 5.71 H Hgb 16.2 H Hct 46.6 MCV 81.6 MCH 28.4 MCHC 34.8 RDW Std Deviation 40.3 RDW Coeff of Sylvain 14.1 Plt Count 289 MPV 10.3 Immature Gran % (Auto) 0.800 Neut % (Auto) 83.7 H Lymph % (Auto) 7.5 L Garfield % (Auto) 6.6 Eos % (Auto) 1.2 Baso % (Auto) 0.2 Absolute Neuts (auto) 18.0 H Absolute Lymphs (auto) 1.62 Nucleated RBC % 0 Differential Comment SCANNED Sodium 135 Potassium 3.0 L Chloride 94 L Carbon Dioxide 26.1 Anion Gap 14 BUN 30 H Creatinine 0.51 L Estim Creat Clear Calc 60.38 Est GFR (MDRD) Non-Af 100 BUN/Creatinine Ratio 58.4 H Glucose 153 H Lactic Acid 1.1 Calcium 9.9 Magnesium 2.1 Total Bilirubin 1.15 Direct Bilirubin 0.42 H AST 21 ALT 23 Alkaline Phosphatase 113 H Total Protein 6.0 Albumin 3.8 Globulin 2.2 Procalcitonin 0.12 H TSH 0.962 Urine Color Yellow Urine Clarity Clear Urine pH 7.0 Ur Specific Freeman 1.010 Urine Protein 15 H Urine Glucose (UA) Normal Urine Ketones 5 H Urine Occult Blood 10 H Urine Nitrite Negative Urine Bilirubin Negative Urine Urobilinogen Normal Ur Leukocyte Esterase 500 H Urine RBC 0 SEEN Urine WBC 0-5 SEEN Ur Squamous Epith Cells 0-5 SEEN Amorphous Sediment 1+ Urine Bacteria 0 SEEN Urine Mucus 0 SEEN Radiography Diagnostic Testing: Clinical Impression(s) from Imaging Studies Abdomen/Pelvis CT 08/05/25 07:10 IMPRESSION: Hepatic metastatic disease. Right adrenal metastatic disease. Bony metastatic disease. Constipation. Negative for acute intra-abdominal or pelvic pathology. Reading Location: [facility] Chest X-Ray 08/05/25 08:10 IMPRESSION: Prominent right upper lobe airspace disease is seen, also with marked elevation of the minor fissure. Although the main finding is significant right upper lobe atelectasis, cannot exclude the presence of pneumonitis, or even, additionally, obstructing malignancy. Consider further evaluation with contrasted thoracic CT at this time. No evidence of pulmonary edema. No pleural effusion or pneumothorax is noted. The cardiomediastinal silhouette is remarkable for a partially calcified aorta. No acute osseous change is seen. Reading Location: [id number] Brain CT 08/05/25 09:40 IMPRESSION: There are at least eight enhancing lesions in the brain with the largest in the medial right temporal lobe measures 2.3 x 2.2 x 2.1 cm causes midline shift to the left by 6 mm. These findings are consistent with metastasis. Reading Location: [facility] Management Discussion w/another healthcare provider: shafting worker/Case management <Dr. Claudia Gomez, DO - Last Filed: 08/05/25 16:16> [facility] Narrative Medical decision making narrative: Patient arrived to the ER hypertensive but has a past medical history of this. She reported a history of metastatic cancer. She overall states she feels unwell but does not have focal symptoms of abdominal pain cough congestion vomiting diarrhea fevers or chills. According to the she has had failure to thrive with poor oral intake. Her physical exam is consistent with dehydration. Therefore at this time in order to assess for a potential secondary infection versus anemia versus electrolyte abnormality versus acute kidney injury basic labs were obtained. The patient's white count is elevated at 21.5 when on the first of the month it was slightly elevated at only 13. With the increase in the white blood cell count there is concern for developing infection and therefore a chest x-ray urine sample and CT of the abdomen pelvis will be obtained. The patient's son arrived to the ER and informed the nursing staff that the patient was reportedly offered palliative care/hospice at her gamma knife treatment last week. However the patient refused it as she states her has dementia and she needs to take care of him. Therefore at this time as the patient is having persistent weakness and failure to thrive secondary to her metastatic cancer she will once again need evaluated by social work to discuss palliative care and treatment planning. At this time the patient's remaining labs and imaging studies as well as evaluation by social work are still pending and therefore should be signed out to the day physician Dr. Gomez I do not feel there is need for antibiotics at this time as the patient is afebrile and not neutropenic. Therefore I will wait and see if the further testing elicits a potential cause of the leukocytosis before starting antibiotic therapy Patient signed out to me pending final disposition. Ultimately decided to treat for possible acute acquired pneumonia possible postobstructive pneumonia as well as UTI given 500 leukocyte esterase in her urine as well as leukocytosis. Case discussed with hospitalist, Dr. Orosco. He did request a CT with and without contrast of the brain for further evaluation given her known gamma knife procedure. This does show associated edema and shift of 6 mm. He feels the patient benefit from transfer where there are neurosurgical capabilities. Case discussed with the patient's oncologist as well, Dr. Celis who is in agreement. Initially discussed possible palliative care options however at this time does not Patient is comfortable going complete hospice so I do not think she would benefit from staying here. I discussed with nurse practitioner, Luana, for the patient's neurosurgeon, Dr. Humphrey who recommends Decadron dose 10 mg and every 6 Decadron while awaiting transfer. She is agreeable that patient should be transferred. Case is discussed with neurosurgeon at the transfer line, and I personally discussed the case with Dr. Sanchez, accepting physician at [facility] For the medicine service. Patient and family agreeable with plan of care Lab Data Labs: Laboratory Results - last 24 hr 08/05/25 08/05/25 08/05/25 06:30 07:17 08:30 WBC 21.5 H RBC 5.71 H Hgb 16.2 H Hct 46.6 MCV 81.6 MCH 28.4 MCHC 34.8 RDW Std Deviation 40.3 RDW Coeff of Sylvain 14.1 Plt Count 289 MPV 10.3 Immature Gran % (Auto) 0.800 Neut % (Auto) 83.7 H Lymph % (Auto) 7.5 L Garfield % (Auto) 6.6 Eos % (Auto) 1.2 Baso % (Auto) 0.2 Absolute Neuts (auto) 18.0 H Absolute Lymphs (auto) 1.62 Nucleated RBC % 0 Differential Comment SCANNED Sodium 135 Potassium 3.0 L Chloride 94 L Carbon Dioxide 26.1 Anion Gap 14 BUN 30 H Creatinine 0.51 L Estim Creat Clear Calc 60.38 Est GFR (MDRD) Non-Af 100 BUN/Creatinine Ratio 58.4 H Glucose 153 H Lactic Acid 1.1 Calcium 9.9 Magnesium 2.1 Total Bilirubin 1.15 Direct Bilirubin 0.42 H AST 21 ALT 23 Alkaline Phosphatase 113 H Total Protein 6.0 Albumin 3.8 Globulin 2.2 Procalcitonin 0.12 H TSH 0.962 Urine Color Yellow Urine Clarity Clear Urine pH 7.0 Ur Specific Freeman 1.010 Urine Protein 15 H Urine Glucose (UA) Normal Urine Ketones 5 H Urine Occult Blood 10 H Urine Nitrite Negative Urine Bilirubin Negative Urine Urobilinogen Normal Ur Leukocyte Esterase 500 H Urine RBC 0 SEEN Urine WBC 0-5 SEEN Ur Squamous Epith Cells 0-5 SEEN Amorphous Sediment 1+ Urine Bacteria 0 SEEN Urine Mucus 0 SEEN Radiography Diagnostic Testing: Clinical Impression(s) from Imaging Studies Abdomen/Pelvis CT 08/05/25 07:10 IMPRESSION: Hepatic metastatic disease. Right adrenal metastatic disease. Bony metastatic disease. Constipation. Negative for acute intra-abdominal or pelvic pathology. Reading Location: [id number] Chest X-Ray 08/05/25 08:10 IMPRESSION: Prominent right upper lobe airspace disease is seen, also with marked elevation of the minor fissure. Although the main finding is significant right upper lobe atelectasis, cannot exclude the presence of pneumonitis, or even, additionally, obstructing malignancy. Consider further evaluation with contrasted thoracic CT at this time. No evidence of pulmonary edema. No pleural effusion or pneumothorax is noted. The cardiomediastinal silhouette is remarkable for a partially calcified aorta. No acute osseous change is seen. Reading Location: [address] Brain [address] 08/05/25 09:40 IMPRESSION: There are at least eight enhancing lesions in the brain with the largest in the medial right temporal lobe measures 2.3 x 2.2 x 2.1 cm causes midline shift to the left by 6 mm. These findings are consistent with metastasis. Reading Location: [facility] Management Discussion w/another healthcare provider: Hospitalist and Vp Account Director Discharge Plan Triage Chief Complaint: General Illness ED Provider: Thomas Quintanilla Dx/Rx/DC Orders Clinical Impression: Metastasis to brain, Cerebral edema, Weakness, Nausea and vomiting, Hypokalemia Prescriptions: No Action (DME) vitamin c 0 .ROUTE .MEDSUPPLY multivitamin Tablet 1 tab PO DAILY (DME) probiotic 0 .ROUTE .MEDSUPPLY Zyrtec 10 mg capsule 10 mg PO DAILY calcium PO DAILY metoprolol succinate 25 mg tablet extended release 24 hr 25 mg PO QDAY vitamin E mixed 400 unit capsule 400 unit PO DAILY selenium 50 mcg tablet 50 mcg PO QDAY aspirin 81 mg tablet,delayed release (DR/EC) 81 mg PO QDAY chlorthalidone 25 mg tablet 25 mg PO DAILY Qty: 90 3RF Primary Care Provider: Julieta Billingsley Referrals: Julieta Billingsley MD [Primary Care Provider, Internal Medicine - [facility]] Print Language: French Disposition Disposition: Acute Care Hospital Discharge Location: [facility] Discharge Date/Time: 08/05/25 20:51
[2025-08-05 08:35] LABS: Mucous, Urine 0 SEEN /hpf (<or=2+); Red Blood Cells-Urine 0 SEEN /hpf (0-5)
[2025-08-05 08:37] LABS: Color, Urine Yellow (Yellow); Glucose, Dipstick Normal (Normal); Ketone-Dipstick 5 mg/dl (Negative); Leukocyte Esterase-Dipstick 500 /ul (Negative); Nitrite-Dipstick Negative (Negative); Occult Blood-Urine 10 /ul (Negative); Protein-Dipstick 15 mg/dl (Negative); Specific Gravity, Urine 1.010 (1.002-1.030); Urine Bilirubin Dipstick Negative (Negative)
[2025-08-05 08:38] LABS: Procalcitonin 0.12 ng/mL (<=0.10)
[2025-08-05 08:47] LABS: Squamous Epithelial Cells - UA 0-5 SEEN /hpf (5-10)
--- NOTE | 2025-08-05 08:55 | ED.RN ---
Had a conversation with the patient. I asked her if she knew how bad her cancer is? She said no. I explained to her that it is in her brain, bones, liver, lungs, and adrenal glands. I also explained that it was time for her to decide what she wanted to do and suggested hospice services. Pt was ok with me talking to the family and making a decision about care. FAmily would like pt to have round the clock care where her can be with her or at least visit her on a regular basis. Pt and family were also made aware that she has 6 months to a year to live. Family and the pt took it very well considering the subject matter and will start making arrangements for the pts . They are aware that case management will be in to see the pt.
--- NOTE | 2025-08-05 09:40 | CT_ITS ---
PROCEDURE: BRAIN/HEAD W/WO CONTRAST 08/05/2025 REASON FOR EXAM: VOMITING, KNOWN BRAIN CANCER TECHNIQUE: Procedure Code: CTBRWW Modality: CT Procedure: BRAIN/HEAD W/WO CONTRAST Coronal and Sagittal reconstruction series were provided. CONTRAST: Isovue 370 50 VOLUME: 50 mL One or more dose reduction techniques were used (e.g., Automated exposure control, adjustment of the mA and/or kV according to patient size, use of iterative reconstruction technique). RADIATION DOSE SUMMARY: CTDlvol: 44.99 mGy DLP: 812.98 mGycm COMPARISON: CT head 07/11/2025. FINDINGS: Brain: There are at least 8 enhancing lesions in the brain with the largest in the medial right temporal lobe measures 2.3 x 2.2 x 2.1 cm causes midline shift to the left by 6 mm. The craniocervical junction is unremarkable. No ventriculomegaly. The orbits are within normal limits. CSF Spaces: Unremarkable. Sinuses/Mastoids: The paranasal sinuses are clear. Soft tissue thickening in the right middle ear with right mastoid cells fluid retention consistent with otomastoiditis. Bones: No acute bony abnormalities. CT/Brain/Head W/WO Contrast IMPRESSION: There are at least eight enhancing lesions in the brain with the largest in th e medial right temporal lobe measures 2.3 x 2.2 x 2.1 cm causes midline shift to the left by 6 mm. These findings are consistent with metastasis. Reading Location: [id number]
[2025-08-05] MEDS: Azithromycin 500 MG in 0.9% Normal Saline (250mL Bag) 250 ML 250 MG IV (10:37)
[2025-08-05] MEDS: Potassium Chloride Oral Soln 20 MEQ/15 ML UDC PO (10:37)
[2025-08-05] MEDS: Potassium Chloride 10mEq/100mL 10 MEQ/100 ML IV.SOLN. 100 MEQ IV BOLUS ×4 (10:48→14:36)
--- NOTE | 2025-08-05 11:10 | CM.ED ---
Social work Reason for referral: hospice/palliative care Referral source: Dr Dwight OWENS received referral for patient regarding hospice/palliative care upon arrival for shift. Per Karla radar mechanic, patient has cancer all through body and patient had already chosen hospice care and patient's family was handling the decision well. SW entered patient's room, introducing self and role at [facility]. Patient was observed laying in bed and falling asleep on occasion. Patient's step-son, Zion Lugo, was bedside. Per Zion Lugo, patient's Zion and Zion's son had just left [facility] ED. Patient spoke up and stated desiring to be placed at a facility close to patient's and stated patient's order: 1) [facility], 2) [place], 3) [facility]. Patient stated needing to be close enough for to visit on a daily basis. Per nursing, patient's has early onset dementia and per patient, patient's is unable to drive at night. Per patient's step-son, patient's is able to stay at their apartment alone currently and could receive help as needed by patient's son and step-son; patient's step-son stated help would be limited due to patient's step-son living in [place]. Zion Lugo asked questions regarding the care at the above facilities to which this SW stated being unable to provide advice regarding any facility. SW answered questions as able and provided supportive presence as needed. Patient was still under medical evaluation at this time. SW to follow as needed. Venessa Diallo, ACCIDENT EXAMINER, ATHLETIC EQUIPMENT MANAGER
--- NOTE | 2025-08-05 12:08 | PCM.HOSP.N ---
Hospitalist Note ER physician Dr. Johnson call before the admission for pneumonia. Patient primary complaint generalized weakness, nausea and vomiting for 5 days not much oral intake. She also has headache, generalized. She does not have symptoms of pneumonia including cough, fever, tachypnea but GERD mild shortness of breath on exertion probably from generalized weakness. On exam no tachypnea hypoxia. No tachycardia. Blood pressure normal. Chest x-ray individually reviewed. Chest x-ray is read reviewed and shows right upper lobe opacity with mild elevation of minor fissure with right upper lobe atelectasis suspicious for neoplasm. 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 With symptoms suspicious of increased ICP of nausea vomiting and headache and history of brain mets and under active gamma knife surgery in [facility], CT brain with and without contrast was ordered. On exam No neck rigidity. Air entry bilateral equal with mildly diminished in right lower lobe. Heart S1-S2 regular. CT brain shows at least 8 enhancing lesions in the brain with the largest in the medial right temporal lobe measuring 2.3 x 2.2 x 2.1 cm causing midline shift to the left by 6 mm. With increased suspicion of ICP with clinical symptoms of headache nausea and vomiting, discussed with ER physician to transfer to hospital where there is available of neurosurgery, monitoring of ICP and needs treatment including IV dexamethasone, IV mannitol and others. We do not have the facility of management of increased ICP with midline shift, ability of neurosurgeon or neurologist for active management. The patient was not accepted for admission Clinical Impression(s) from Imaging Studies Abdomen/Pelvis CT 08/05/25 07:10 IMPRESSION: Hepatic metastatic disease. Right adrenal metastatic disease. Bony metastatic disease. Constipation. Negative for acute intra-abdominal or pelvic pathology. Reading Location: [id number] Chest X-Ray 08/05/25 08:10 IMPRESSION: Prominent right upper lobe airspace disease is seen, also with marked elevation of the minor fissure. Although the main finding is significant right upper lobe atelectasis, cannot exclude the presence of pneumonitis, or even, additionally, obstructing malignancy. Consider further evaluation with contrasted thoracic CT at this time. No evidence of pulmonary edema. No pleural effusion or pneumothorax is noted. The cardiomediastinal silhouette is remarkable for a partially calcified aorta. No acute osseous change is seen. Reading Location: [address] Brain [address] 08/05/25 09:40 IMPRESSION: There are at least eight enhancing lesions in the brain with the largest in the medial right temporal lobe measures 2.3 x 2.2 x 2.1 cm causes midline shift to the left by 6 mm. These findings are consistent with metastasis. Reading Location: [id number]
== END 2025-08-05 20:51 | disposition short-term general hospital (02) ==
PROVIDERS: Emergency Provider Emergency Medicine; PCP Internal Medicine; Visit Provider Emergency Medicine
DX: J18.9 Pneumonia, unspecified organism (principal); C78.7 Secondary malignant neoplasm of liver and intrahepatic bile duct; C79.31 Secondary malignant neoplasm of brain; C79.71 Secondary malignant neoplasm of right adrenal gland; C79.51 Secondary malignant neoplasm of bone; C34.90 Malignant neoplasm of unspecified part of unspecified bronchus or lung; G93.6 Cerebral edema; Z87.891 Personal history of nicotine dependence; R53.1 Weakness; E87.6 Hypokalemia; R11.2 Nausea with vomiting, unspecified; I10 Essential (primary) hypertension; R62.7 Adult failure to thrive; I70.0 Atherosclerosis of aorta; K21.9 Gastro-esophageal reflux disease without esophagitis; Z63.6 Dependent relative needing care at home; N39.0 Urinary tract infection, site not specified
CPT/HCPCS: 70470; 71045; 74177; 80048; 80076; 81001; 83605; 83735; 84145; 84443; 85025; 87040; 87077; 87086; 87088; 87186; 96365; 96366; 96368; 96375; 99285; Q9967; A4216